=== PATIENT | female | born 1980 | race African-American/Black ===

== ENCOUNTER 2021-11-07 18:15 | Emergency (ER) | payer MEDICAID, SELFPAY ==
[2021-11-07 18:40] VITALS: BP 133/80; PULSE 117; RESP 20; TEMP 36.6; O2SAT 97; BMI 58.1
--- NOTE | 2021-11-07 19:37 | ED.GENADULT ---
HPI - General Adult General Date Seen: 11/07/21 Chief complaint: Unspecified Complaint, Adult Stated complaint: POSSIBLE SINUS INF - SICK SINCE TUESDAY Time Seen by Provider: 11/07/21 19:04 Source: patient History of Present Illness HPI narrative: Patient is a 41-year-old woman who presents with upper respiratory symptoms including sore throat, congestion, headache, body aches, cough. She has not had a fever that she knows of. She was seen at the [place] [facility] I believe on evening, at that time she had a negative COVID, negative strep, negative chest x-ray and was diagnosed with pharyngitis and viral URI with cough. She was recommended to use NSAIDs and follow up with her primary care doctor. Presents today saying that she still has these symptoms and feels that she has a sinus infection because she is not better. She says that previously when she has had headache and congestion she has been treated with antibiotics and it has helped her to feel better within a few days. She continues to deny fever. She has not had vomiting or diarrhea. She does say that she has not had an appetite and finds it hard to drink water because water makes her feel nauseated. She has been taking ibuprofen and Tylenol, she says that those help her symptoms but then as they wear off her symptoms come back. Past medical history is reviewed on her [facility] Record, including depression, anxiety, obesity, sleep apnea, binge eating, anemia and constipation. Related Data Home Medications Medication Instructions Recorded Confirmed fluoxetine 40 mg capsule mg 11/07/21 Allergies Allergy/AdvReac Type Severity Reaction Status Date / Time No Known Drug Allergies Allergy Verified 11/07/21 18:46 Review of Systems Status of ROS: Reports: 10 or more systems reviewed and unremarkable except as noted in History and below Exam Narrative: Exam Narrative: Vital signs as noted above. In general, an alert, well-appearing patient. She is overweight. Head: Normocephalic, atraumatic. Eyes: Pupils are equal reactive. Extraocular movements are full. Conjunctivae are normal. ENT: Mucous membranes are moist. Throat is normal. Bilateral TMs are normal. Neck: Supple without lymphadenopathy. No meningeal signs. Heart: Mildly tachycardic, regular. No murmur or rub. Lungs: Clear bilaterally. No increased work of breathing, crackles or wheezes. Abdomen: Soft and nontender. No organomegaly. Extremities: Well perfused. No edema. No calf tenderness. Pulses intact. Neurologic: Patient is alert and oriented to person and place. Speech is fluent. Face is symmetric. Moves all extremities equally. Affect: Normal. Skin: Warm and dry. Well perfused. Const: Vital Signs, click to edit/add: Vital Signs - 24 hr 11/07/21 18:40 Temperature 97.9 F Pulse Rate [Pulse Oximeter] 117 H Respiratory Rate 20 Blood Pressure [Ri ght Upper Arm] 133/80 Pulse Oximetry 97 Oxygen Delivery Me thod Room Air Documenting provider has reviewed patient's vital signs: yes Course Course Hospital Course: I had a lengthy conversation with her about the difference between viral and bacterial infections. I reviewed with her that with only 4 days of symptoms, I do not think this represents sinus infection. We also discussed that if she were to start an antibiotic now, she would likely feel better within a few days but that is simply because that is the natural course of a viral infection. I suggested that she continue with her current medications. She feels strongly that she needs something else to help with her sinus congestion. Therefore I am going to give her a few days of prednisone to see if that will help at all with her sinus congestion. I have also suggested that she can use ice packs for headache if needed. Follow up with primary care if not improving over the next few days. She was mildly tachycardic at her visit to the ER couple of days ago, remains mildly tachycardic here, low 100's at the time of my exam. She is otherwise afebrile, O2 sats are normal, exam is otherwise benign. This may represent some mild dehydration, may be in part secondary to elevated BMI. She otherwise looks completely nontoxic. Vital Signs Vital signs: Initial Vital Signs Temperature 97.9 F 11/07/21 18:40 Temperature Source Temporal Artery Scan 11/07/21 18:40 Pulse Rate 117 H 11/07/21 18:40 Respiratory Rate 20 11/07/21 18:40 Blood Pressure 133/80 11/07/21 18:40 Blood Pressure Mean 97 11/07/21 18:40 Blood Pressure Position Supine 11/07/21 18:40 Pulse Oximetry 97 11/07/21 18:40 Oxygen Delivery Method 11/07/21 18:40 Vital Signs Temperature 97.9 F 11/07/21 18:40 Pulse Rate 117 H 11/07/21 18:40 Respiratory Rate 20 11/07/21 18:40 Blood Pressure 133/80 11/07/21 18:40 Pulse Oximetry 97 11/07/21 18:40 Oxygen Delivery Method 11/07/21 18:40 Temperature 97.9 F 11/07/21 18:40 Pulse Rate 117 H 11/07/21 18:40 Respiratory Rate 20 11/07/21 18:40 Blood Pressure 133/80 11/07/21 18:40 Pulse Oximetry 97 11/07/21 18:40 Oxygen Delivery Method 11/07/21 18:40 Discharge Plan Discharge Clinical Impression: Viral URI Patient Disposition: Home, Self-Care Condition: Stable Instructions: Upper Respiratory Infection (ED) Additional Instructions: Continue with ibuprofen, Tylenol, Sudafed as you have been. You can try ice as well for headache. Prednisone as prescribed. Primary care follow-up if not improving over the next week, sooner for worsening. Prescriptions: No Action fluoxetine 40 mg capsule Stand Alone Forms: [employer] Info Instructions
--- OUTSIDE RECORDS SUMMARY | 2021-11-07 19:37 | XMS_ITS | Clinical Summary ---
:1980 Author Organization [facility] Address [address] [place] [address] Care Team Providers Name Role Phone Rose Morrow APRN, CNP Primary Care Provider [phone] Source Comments You are receiving this document as you are listed as the primary care provider,follow-up provider, or the patient has been referred to you for consultation.This is in compliance with the Medicare and Medicaid EHR Incentive Program,which states Providers who transition their patient to another setting of careor provider of care or refers their patient to another provider of care shouldprovide summarycare record for each transition of care or referral. [facility] [place] Allergies No known active allergies Medications Medication Sig Dispensed Refills Start Date End Date Status Ibuprofen 200 MG Take 600 mg by 0 Active capsule mouth every 6 hours as needed for Pain. tiZANidine (ZANAFLEX) Take 0.5-1 30 Tablet 1 05/13/2020 Active 2 MG tablet Tablets by mouth two times daily as needed (Muscle pain and tension). ondansetron Take 1 Tablet by 20 Tablet 0 06/06/2020 Active (ZOFRAN-ODT) 4 MG mouth as needed disintegrating tablet for Nausea. buPROPion (WELLBUTRIN Take 3 Tablets by 270 Tablet 1 1 Active XL) 150 MG 24 hour mouth daily. release tablet triamcinolone Apply topically 15 g 1 10/30/2020 Active acetonide (KENALOG) two times a day. 0.1 % Indications: creamIndications: Atopic Dermatitis Atopic Dermatitis Vitamin D, TAKE 1 CAPSULE BY 12 Capsule 3 11/18/2020 Active Ergocalciferol, 1.25 MOUTH 1 TIME A MG (42391 UT) CAPS WEEK topiramate (TOPAMAX) Take 1 Tablet by 60 Tablet 2 11/19/2020 Active 25 MG mouth two times a tabletIndications: day for 30 days. Morbid obesity with BMI of 50.0-59.9, adult ([facility]) traZODone (DESYREL) Take 0.5-2 60 Tablet 2 01/14/2021 01/15/20 Active 100 MG tablet Tablets by mouth daily at bedtime. desvenlafaxine 25 mg daily x 7 60 Tablet 3 01/14/2021 Active (PRISTIQ) 25 MG 24 days then 50 hour release tablet daily with food- discontinue Cymbalta Active Problems Problem Noted Date OCD (obsessive compulsive disorder) 01/14/2021 Mixed hyperlipidemia 11/19/2020 Hyperinsulinemia 11/19/2020 Prediabetes 11/19/2020 Chronic low back pain 05/09/2020 Urinary frequency 09/13/2019 Overview: Added automatically from request for geoffrey dontae [id number] Urinary urgency 09/13/2019 Overview: Added automatically from request for geoffrey dontae [id number] Mixed stress and urge urinary incontinence 09/13/2019 Overview: Added automatically from request for geoffrey dontae [id number] Morbid obesity with BMI of 50.0-59.9, adult 03/14/2019 Binge eating disorder 07/28/2017 MIKEY (generalized anxiety disorder) 07/08/2016 CAMRYN (obstructive sleep apnea) 01/13/2016 Last Assessment & Plan: Formatting of th is note might be different from the original. PSG 2016 [facility] AHI 6 RDI 7 Major depression, recurrent 02/19/2010 Vitamin D deficiency Overactive bladder Resolved Problems Problem Noted Date Resolved Date Depression (emotion) 01/08/2020 Immunizations Name Administration Dates Next Due Flu Vac (3+ yrs) 11/03/2011, 12/15/2006 Flu Vac Preserv Free (3+yrs) 03/01/2012 HepB Adult (Engerix-B, 20+ yrs, 3 01/12/2005, 08/14/2004, dose series) IPV (Polio) 10/03/2012 Influenza IIV4 (Quadrivalent) 0.5mL 10/27/2019, 03/21/2019, 03/14/2019 (78940) (Deferred: Patient Refused), 12/26/2017, 11/28/2013 Influenza, Unspecified Formulation 05/02/2013 MMR 08/14/2004, 07/10/2004 Moderna (Spikevax) COVID-19, 12+ Yrs 06/12/2020, 05/14/2020 TB Skin Test - Inpt (PPD) 08/18/2004 Td 02/16/2005, 08/14/2004, 07/10/2004 Tdap 06/30/2013, 11/03/2011 Typhoid (Typhim Vi, IM) 10/03/2012 Varicella 08/14/2004, 07/10/2004 YF (Yellow Fever) 10/03/2012 Family History Medical History Relation Name Comments Hypertension Father Blindness Negative Family History Cataract Negative Family History Glaucoma Negative Family History Retinal Detachment Negative Family History Relation Name Status Comments Father Alive Mother Alive Brother 1 Alive Brother 2 Alive Brother 3 Alive Brother 4 Alive Maternal Grandfather Maternal Grandmother Paternal Grandfather Paternal Grandmother Sister 1 Alive Sister 2 Alive Social History Tobacco Use Types Packs/Day Years Used Date Smoking Tobacco: Never Smokeless Tobacco: Never Alcohol Use Standard Drinks/Week Comments Never 0 (1 standard drink = 0.6 oz pure alcoho l) Alcohol Habits Answer Date Recorded How often do you have a drink containing alcohol? Never 02/07/2020 How many drinks containing alcohol do you have on a typical Not asked day when you are drinking? How often do you have six or more drinks on one occasion? No t asked Comment: Not asked Sex Assigned at Date Recorded Not on file Last Filed Vital Signs Vital Sign Reading Time Taken Comments Blood Pressure 119/90 08/19/2020 1:00 PM CDT Pulse 115 08/19/2020 1:00 PM CDT Temperature 36.7 ??C (98 ??F) 01/08/2020 9:46 AM JEWEL DIAMETER GAUGER Respiratory Rate 20 10/29/2019 5:51 PM CDT Oxygen Saturation 98% 10/29/2019 5:51 PM CDT Inhaled Oxygen Concentration - - Weight 167.4 kg (369 lb) 11/19/2020 11:08 AM CDT pt rep orted Height 170.2 cm (5' 7) 11/19/2020 11:08 AM CDT pt repo rted Body Mass Index 57.79 11/19/2020 11:08 AM CDT Plan of Treatment Health Maintenance Due Date Last Done Comments Hep C Screening (Preventive 1980 Services) COVID-19 Vaccine (3 - 08/07/2020 06/12/2020, 05/14/2020 Booster for Moderna series) Adult Preventive Visit 03/14/2021 03/14/2019, 05/22/2018 Pap 05/21/2021 05/21/2018 Prediabetes: HGBA1C 08/19/2021 08/19/2020, 03/14/2019, 05/22/2018 Influenza (#1) 2021 10/27/2019, 03/21/2019, 12/26/2017, Additional history exists DTaP/Tdap/Td (3 - Tdap) 07/01/2023 06/30/2013, 11/03/2011, 02/16/2005, Additional history exists Zoster/Shingles (1 of 2) 2032 HepB Completed 01/12/2005, 08/14/2004, 07/10/2004 IPV (Polio) Aged Out 10/03/2012 No longer eligib le based on patient 's age to complete this topic HIV Screening (Preventive Completed 03/14/2019 Services) HPV Vaccine Aged Out No longer eligib le based on patient 's age to complete this topic HepA Aged Out No longer eligib le based on patient 's age to complete this topic Hib Aged Out No longer eligib le based on patient 's age to complete this topic MCV4 Aged Out No longer eligib le based on patient 's age to complete this topic Pneumococcal Aged Out No longer eligib le based on patient 's age to complete this topic Care Teams Wafer Fabrication Technician Relationship Specialty Start Date End Date Rose Morrow, INTER COM INSTALLER, BIOFUELS PRODUCTION MANAGER PCP - General Nurse Practitioner 10/30/20 [address] [place] MAR[place] Washburn [id number]
--- OUTSIDE RECORDS SUMMARY | 2021-11-07 19:37 | XMS_ITS | Encounter Summary ---
:1980 Author Organization [facility] Address [address] [place] [address] Care Team Providers Name Role Phone Rose Morrow APRN, CNP Primary Care Provider [phone] Encounter Details Date Type Department Care Team Description 04/13/2021 Partner ED HIM DEPARTMENT Provider, Javi gerard MD [facility] 04/13/2021 Interface provid er interface provider, [place] [id number] Social History Tobacco Use Types Packs/Day Years [...] Assigned at Date Recorded Not on file documented as of this encounter Plan of Treatment Not on filedocumented as of this encounter Visit Diagnoses Not on filedocumented in this encounter Care Teams Ap Processor Relationship Specialty Start Date End Date Rose Morrow APRN, MOLD SETTER PCP - General Nurse Practitioner 10/30/20 [address] [place] [address] documented as of this encounter
--- OUTSIDE RECORDS SUMMARY | 2021-11-07 19:37 | XMS_ITS | Encounter Summary ---
:1980 Author Organization [facility] [place] Address [address] [address] Care Team Providers Name Role Phone Rose Morrow APRN, RETAIL EVENT COORDINATOR Primary Care Provider [phone] Reason for Visit Reason Comments Careplan: General Encounter Details Date Type Department Care Team Description 02/26/2021 Telephone [place] [facility] Oralia Knapp, Careplan: General Weight Center RN [address] [facility] [address] [place], [place] [address] Social History Tobacco Use Types Packs/Day Years [...] on file documented as of this encounter Nursing Notes Castro Knapp RN - 02/26/2021 2:36 PM CST Bariatric Patient Tracking SmartForm updated to reflect current status with B[facility]ric Surgery and [facility]. Attempts to contact have not been returned. Reminded to f/u w/ Kin MIQUEL Mills, get LOS, CPAP DL, marilee vit d and get PT eval. (Last attempt to contact patient) BOILER documented in this encounter Plan of Treatment Not on filedocumented as of this encounter Visit Diagnoses Not on filedocumented in this encounter Care Teams Health Care Manager Relationship Specialty Start Date End Date Rose Morrow, GEOTHERMAL INSTALLER, RETAIL EVENT COORDINATOR PCP - General Nurse Practitioner 10/30/20 [address] [place] [address] documented as of this encounter
--- OUTSIDE RECORDS SUMMARY | 2021-11-07 19:38 | XMS_ITS | Encounter Summary ---
:1980 Author Organization [email or web address] Address [address] [address] Care Team Providers Name Role Phone Rose Morrow APRN, CNP Primary Care Provider [phone] Encounter Details Date Type Department Care Team Description 11/06/2020 Notes/[place] [address] [address] [facility] [address] [place] [address] [place] [phone] Social History Tobacco Use Types Packs/Day Years [...] on filedocumented in this encounter Care Teams Boat Hoist Operator Helper Relationship Specialty Start Date End Date Rose Morrow APRN, CNP PCP - General Nurse Practitioner 10/30/20 [address] [place] Washburn 187367 documented as of this encounter
--- OUTSIDE RECORDS SUMMARY | 2021-11-07 19:38 | XMS_ITS | Encounter Summary ---
:1980 Author Organization [facility] Address [address] [place] [address] Care Team Providers Name Role Phone Rose Morrow APRN, CNP Primary Care Provider [phone] Reason for Visit Reason Onset Date Comments Follow-up Depression ERRONEOUS ENTRY 2020 Encounter Details Date Type Department Care Team Description 2020 Telemedicine [facility] Rose Morrow, ERR ONEOUS ENTRY Medicine [place] (Primary Dx) [address] [address] [place] [address] [place], [place] [phone] (Wo rk) Social History Tobacco Use Types Packs/Day Years [...] on file documented as of this encounter Progress Notes Rose Morrow, [place] - 2020 11:20 AM CDT Patient scheduled this visit in error. Was supposed to be for three weeks from now. Will see her forfollow up 11/27. This encounter is an erroneous entry. Please disregard. documented in this encounter Plan of Treatment Not on filedocumented as of this encounter Visit Diagnoses Diagnosis ERRONEOUS ENTRY - Primary documented in this encounter Care Teams Microfilming Document Preparer Relationship Specialty Start Date End Date Rose Morrow APRN, CNP PCP - General Nurse Practitioner 10/30/20 [address] [place] 435167 documented as of this encounter
--- OUTSIDE RECORDS SUMMARY | 2021-11-07 19:38 | XMS_ITS | Encounter Summary ---
:[address] [facility] Address [address] [place] [address] Care Team Providers Name Role Phone Sandy Viera MD Primary Care Provider Reason for Visit Reason Comments Careplan: General Encounter Details Date Type Department Care Team Description 09/26/2020 Telephone [place] [facility] Oralia Knapp, Careplan: General Weight Center RN [address] [facility] [address] [place], [place] [address] Social History Tobacco Use Types Packs/Day Years [...] as of this encounter Nursing Notes Castro Knapp, RN - 09/26/2020 3:00 PM CDT Bariatric Patient Tracking SmartForm updated to reflect current status with [facility]ric Surgery and [facility]. ?? Left a voicemail. F/u with Dr Harvey RD, and psych. Please help in coordinating care between your therapist and our psychologist. Keep your appointment with pulmonology 09/19. We need you to continue to work with them and get clearance to proceed with bariatric surgery. documented in this encounter Plan of Treatment Not on filedocumented as of this encounter Visit Diagnoses Not on filedocumented in this encounter Care Teams Health Promotion Coordinator Relationship Specialty Start Date End Date Sandy Viera MD PCP - General Family Practice 07/20/19 10/29/20 [address] [place] [address] documented as of this encounter
--- OUTSIDE RECORDS SUMMARY | 2021-11-07 19:38 | XMS_ITS | Encounter Summary ---
:1980 Author Organization [facility] Address [address] [place] [address] Care Team Providers Name Role Phone Rose Morrow APRN, SOLAR ENERGY ENGINEER Primary Care Provider [phone] Reason for Visit Reason Comments EYE PAIN Encounter Details Date Type Department Care Team Description 10/29/2020 Telephone [facility] [address] Self-Referral, Patient , EYE PAIN Ophthalmology [address] [place] [address] [place], [place] [address] Social History Tobacco Use Types Packs/Day Years [...] documented as of this encounter Nursing Notes Nikko Dominique COT - 10/30/2020 8:04 AM CDT LM to discuss the ongoing symptoms regarding the OS Kelsie Salmeron - 10/29/2020 4:22 PM CDT LE, patient stated that her eye has been painful. Hurts to touch and is sensitive. Patient was told that they may not receive a call back today, but their message will be returned then. documented in this encounter Plan of Treatment Not on filedocumented as of this encounter Visit Diagnoses Not on filedocumented in this encounter Care Teams Nonfarm Animal Caretaker Relationship Specialty Start Date End Date Rose Morrow, CONRAD, SOLAR ENERGY ENGINEER PCP - General Nurse Practitioner 10/30/20 [address] [place] [address] documented as of this encounter
--- OUTSIDE RECORDS SUMMARY | 2021-11-07 19:38 | XMS_ITS | Encounter Summary ---
:1980 Author Organization [employer] Address [address] [place] [address] Care Team Providers Name Role Phone Sandy Viera MD Primary Care Provider Reason for Visit Reason Comments Sleep problems Hard time sleeping DEPRESSION Lack of interest in doing th ings Encounter Details Date Type Department Care Team Description 08/19/2020 Office Visit [facility] Rose Morrow, Sev ere episode of recurrent major depressive disorder, without psychotic features (HRC) (Primary Dx); Medicine YEAST WASHER, CERTIFIED NURSE OPERATING ROOM Chronic low back pain, unspecified back pain laterality, unspecified whether sciatica present; [address] [address] [address] Morbid obesity with BMI of 50.0-59.9, ad ult (HRC); [place] [address] [place], [place] Binge eating disorder [phone] (Wo rk) Social History Tobacco Use Types [...] on file documented as of this encounter Last Filed Vital Signs Vital Sign Reading Time Taken Comments Blood Pressure 119/90 08/19/2020 1:00 PM CDT Pulse 115 08/19/2020 1:00 PM CDT Temperature - - Respiratory Rate - - Oxygen Saturation - - Inhaled Oxygen Concentration - - Weight 159.4 kg (351 lb 6.4 oz) 08/19/2020 1:00 PM CDT Height - - Body Mass Index 55.87 06/24/2020 10:52 AM CDT documented in this encounter Patient Instructions Patient InstructionsRose Morrow APRN, CNP - 08/19/2020 12:[address] [facility]: [phone] Medicine Wellbutrin: Start 1 tab daily for 3 days, then 2 tabs daily for 3 days, then 3 tabs daily. Continue 3 tabs daily. Take in morning. Cymbalta (new antidepressant, which is also helpful for chronic pain) - Start 1 tab daily in 2 weeks - Ok to take with dinner to help with nausea Get pill divider Recheck with video visit in 4 weeks documented in this encounter Progress Notes Rose Morrow APRN, CNP - 08/19/2020 12:40 PM CDT Narinder Lucas [id number] 1980 SUBJECTIVE: NARINDER LUCAS is a 39 y.o. female who presents to the clinic for medication check. She was unfortunately about 20 minutes late for her appointment. Depression: Patient has severe depression. I started seeing her in January 2020 and started her on Wellbutrin, eventually titrating to 450mg daily. She had notices some improvement in energy and motivation. She was doing more around the house and getting out of bed to accomplish tasks. She was also started seeing a counselor, which she has been doing once weekly. She has also established with an [employer] worker. Given subtherapeutic response to Wellbutrin and chronic low back pain, I recommended trial of Cymbalta starting at 30mg. She did not tolerate this due to nausea. I advised that she try 20mg instead. That was in May. She states that she lost her prescription before she could give that dose atry. She ran out of her Wellbutrin about two weeks ago. Patient states that since then, her depression has been worse. She has not wanted to get out of bed and has not been taking care of herself or her home. She is not preparing food for herself and feels like her depression is contributing to her feeling slowed down mentally and forgetful. She lives in [place] and rarely comes up this far for appointments. I have mainly been seeing her with video visits. She went to the ED this morning because she had run out of her depression medications. Since she was not feeling suicidal, they discharged herhome. She continues to deny SI. Patient has sleep apnea. When she uses her CPAP consistently, she feels more energized during the day and less forgetful. She found out recently that her current machine ([employer]) was recalled. She returned it to the store, but was not given a new one. She states that she has a prescription, she justneeds a machine. She has an appt with our Sleep Clinic on 09/19 to establish care. Patient continues to have difficulty losing weight. She weighs 351 lbs now. She finds it painful/difficult to walk, so is not sure what else she can do to lose weight. She states that she barely eats, so does not think it's an issue with food intake. She would like to get some labs drawn. She has established care with our Bariatrics department, but until mental health is better managed, surgery will not be an option. PAST MEDICAL AND SURGICAL HISTORY REVIEWED IN [facility] FAMILY AND SOCIAL HISTORY REVIEWED IN [facility] MEDICATIONS: Outpatient Medications Prior to Visit Medication Sig ??? Ibuprofen 200 MG capsule Take 600 mg by mouth every 6 hours as needed for Pain. ??? ondansetron (ZOFRAN-ODT) 4 MG disintegrating tablet Take 1 Tablet by mouth as needed for Nausea. ??? tiZANidine (ZANAFLEX) 2 MG tablet Take 0.5-1 Tablets by mouth two times daily as needed (Muscle pain and tension). ??? [DISCONTINUED] buPROPion (WELLBUTRIN XL) 150 MG 24 hour release tablet Take 3 Tablets by mouth daily. ??? [DISCONTINUED] DULoxetine (CYMBALTA) 20 MG capsule Take 1 Capsule by mouth daily. ??? [DISCONTINUED] Vitamin D, Ergocalciferol, 1.25 MG (35708 UT) CAPS Take 1 Capsule by mouth once aweek. No facility-administered medications prior to visit. ALLERGIES: Patient has no known allergies. ROS as described above. Other pertinent positives include: as above OBJECTIVE BP (!) 119/90 (BP Location: Left Forearm, BP Cuff Size: Large) Pulse (!) 115 Wt (!) 351 lb 6.4 oz (159.4 kg) BMI 55.87 kg/m?? GENERAL: This is a well-developed, well-nourished female in no acute distress. Obese body habitus. LUNGS: Symmetrical expansion, CTA in all troy bilaterally. HEART: Regular rate and rhythm. No murmurs. PSYCH: Well-oriented. Appropriate mood and affect. Good insight into condition, pleasant affect. NEURO: Speech and gait are normal. ASSESSMENT/PLAN: Severe episode of recurrent major depressive disorder, without psychotic features (HRC) - buPROPion (WELLBUTRIN XL) 150 MG 24 hour release tablet; Take 3 Tablets by mouth daily. Titration schedule given for restarting meds. - DULoxetine (CYMBALTA) 20 MG capsule; Take 1 Capsule by mouth daily. Titration schedule given for restarting in 2 weeks. - Vitamin D, Ergocalciferol, 1.25 MG (51992 UT) CAPS; Take 1 Capsule by mouth once a week. - Resources given for [facility] for additional therapeutic pathway. - We discussed inpatient or partial hospitalization program today, but patient would prefer to stay at home - Recheck in 4 weeks, sooner if worsening Chronic low back pain, unspecified back pain laterality, unspecified whether sciatica present (HRC):As above, start Cymbalta. See last PM&R note. Morbid obesity with BMI of 50.0-59.9, adult (HRC)/Binge eating disorder: Need to focus on mental health treatment right now. She will continue to benefit from Feathered[employer] And Reducer Machine consults. CAMRYN: I will reach out to Sleep Clinic to inquire how we might be able to get patient a new CPAP sooner. Total time: 30-39 minutes spent reviewing labs/pertinent history, performing exam, preparing plan ofcare, and communicating that plan with patient. Related questions and concerns were addressed. Verbal and/or written education/instructions were provided. Rose Morrow APRN, CERTIFIED NURSE OPERATING ROOM [facility] NB: A voice recognition dictation system was used for this note. Please excuse any typographical errors. documented in this encounter Plan of Treatment Not on filedocumented as of this encounter Visit Diagnoses Diagnosis Severe episode of recurrent major depres sive disorder, without psychotic features (HRC) - Primary Chronic low back pain, unspecified back pain laterality, unspecified whether sciatica present Morbid obesity with BMI of 50.0-59.9, ad ult (HRC) Binge eating disorder documented in this encounter Care Teams Ore Digger Relationship Specialty Start Date End Date Sandy Viera MD PCP - General Family Practice 07/20/19 10/29/20 [address] [place] [address] documented as of this encounter
--- OUTSIDE RECORDS SUMMARY | 2021-11-07 19:38 | XMS_ITS | Encounter Summary ---
:1980 Author Organization [employer] Address [address] [address] Care Team Providers Name Role Phone Rose Morrow APRN, CNP Primary Care Provider [phone] Encounter Details Date Type Department Care Team Description 10/02/2020 Telephone [facility] [address] Peña, PAFabioC Pulmonary Medicine [address] [facility] [place] [address] [facility] [address] [place] [address] [place], [place] [address] (Wo rk) Social History Tobacco Use Types [...] documented as of this encounter Nursing Notes Tato Oates - 10/02/2020 9:53 AM CDT Bladimir pulido inregards to her appt on on 12/03/20 with fermin peña at [place] at 215pm The appt has been cx. Due to the provider Being out on leave and the appt has been rescheduled at our [facility] on 12/04/20 at 230pm with leela rao documented in this encounter Plan of Treatment Not on filedocumented as of this encounter Visit Diagnoses Not on filedocumented in this encounter Care Teams Programmer Relationship Specialty Start Date End Date Rose Morrow APRN, BUILDING INSPECTION ENGINEER PCP - General Nurse Practitioner 10/30/20 [address] [address] [place] [address] documented as of this encounter
--- OUTSIDE RECORDS SUMMARY | 2021-11-07 19:38 | XMS_ITS | Encounter Summary ---
:1980 Author Organization [facility] Address [address] [place] [address] Care Team Providers Name Role Phone Sandy Viera MD Primary Care Provider Encounter Details Date Type Department Care Team Description 09/23/2020 Orders Only Initial Department Provider, [place], [facility] THANIA FIORE MD [place], [place] [address] Interface provider [phone] [place] [address] Social History Tobacco Use Types Packs/Day Years [...] Not on filedocumented as of this encounter Procedures Procedure Name Priority Date/Time Associated Diagnosis Comme nts SLEEP STUDY 09/23/2020 Results for thi s procedure are in the resu lts section. documented in this encounter Results SLEEP STUDY (09/23/2020) Narrative This result has an attachment that is no t available. Interface Provider DUMMY/OTHER/AR documented in this encounter Visit Diagnoses Not on filedocumented in this encounter Care Teams Pattern Changer And Repairer Relationship Specialty Start Date End Date Sandy Viera MD PCP - General Family Practice 07/20/19 10/29/20 [address] [address] [place] [address] documented as of this encounter
--- OUTSIDE RECORDS SUMMARY | 2021-11-07 19:38 | XMS_ITS | Encounter Summary ---
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 She has several issues to discusstoday. Depression: Patient has severe depression. I started seeing her in January 2020 and started her on Wellbutrin, eventually titrating to 450mg daily. She had noticed some improvement in energy and motivation. She was doing more around the house and getting out of bed to accomplish tasks. She also started seeing a counselor, which she [...] prescription before she could give that dose a try. She ran out of her Wellbutrin in late July. When I saw her on 08/19, I recommended restarting her Wellbutrin and gave her a titration schedule. I also gave her a lower dose of Cymbalta 20mg. Patient states that when she got her medication home from the pharmacy, she was confused about what was writtenon the bottles and therefore did not start. She would like to discuss what dose she should be takingwith me today. At this point, her mood has not changed much since August. Continues to feel depressed and has little motivation to do anything. She continues to deny SI. Patient has sleep apnea. When she uses her CPAP consistently, she feels more energized during the day and less forgetful. She found out recently that her current machine ([employer]) was recalled. She has not been using it as she is scared to. She states that she has a prescription, she just needs a machine. She had an appt with our Sleep Clinic on 09/19 to establish care, but it was canceled a day before. She is now rescheduled for 12/04, but is concerned about waiting this long to get in. Chronic low back pain: Reports continued low back pain that affects her ability to do ADLs and exercise. She is doing weekly OT sessions for Lifestyle Renewal program. Objective: There were no vitals taken for this visit. General: WDWN female in NAD Mental Status exam: Dressed neatly in street clothes. She exhibits good eye contact. Thought processis linear and goal oriented. Thought content exhibits logical connections. No pressured speech. Whenquestioned about suicide, the patient expresses Denied symptoms. No evidence of delusions or hallucinations. Mood is depressed . Affect is normal and mood-congruent. Insight and judgement are good . PHQ-9 10/10/2020 08/19/2020 06/06/2020 PHQ-9 Score Total 16 21 14 Q1: Loss of Int/Pleas 3 3 3 Q2: Depressed mood 1 3 3 Q3: Sleep problems 3 3 3 Q4: Tired/Low Energy 3 3 3 Q5: Appetite change 3 3 1 Q6: Feelings of failure 3 3 1 Q7: Concentration Prob 0 3 0 Q8: Slow or Restless 0 0 0 Q9: Thought Self Harm 0 0 0 Date PHQ9 was completed - - - MIKEY-7 08/19/2020 06/06/2020 07/21/2019 Feeling nervous 3 - Nearly every day 0 - Not at all 0 Can't stop worrying 3 - Nearly every day 1 - Several days 0 Worrying too much 3 - Nearly every day 0 - Not at all 0 Trouble relaxing - 0 - Not at all 0 Restlessness - 0 - Not at all 0 Easily annoyed - 0 - Not at all 0 Feeling afraid 2 - More than half the days 0 - Not at all 1 How difficult? Somewhat difficult Somewhat difficult - Total score - 1 1 Assessment/Plan: Severe episode of recurrent major depressive disorder, without psychotic features (HRC)/MIKEY (generalized anxiety disorder) (HRC) - I clarified dosing of her Wellbutrin and Cymbalta prescriptions and appropriate titration schedule. - Continue counseling - Recheck in one month, sooner if worsening CAMRYN (obstructive sleep apnea): Discussed recommendation from Pulmonology department that patients continue to use current CPAP until they are able to be assessed and obtain new machine. Patient states that she is uncomfortable with this and will likely avoid use. Chronic low back pain, unspecified back pain laterality, unspecified whether sciatica present (HRC) - Continue Lifestyle Renewal Program - Discussed importance of Cymbalta trial - Recheck in one month Clinician located at clinic. Patient located at home Billing based on: [place] Morrow APRN, CNP documented in this encounter Plan of Treatment Not on filedocumented as of this encounter Visit Diagnoses Diagnosis Severe episode of recurrent major depres sive disorder, without psychotic features (HRC) - Primary MIKEY (generalized anxiety disorder) (HRC) Generalized anxiety disorder CAMRYN (obstructive sleep apnea) Obstructive sleep apnea (adult) (pediatr ic) Chronic low back pain, unspecified back pain laterality, unspecified whether sciatica present documented in this encounter Care Teams Electrical Logging Engineer Relationship Specialty Start Date End Date Sandy Viera MD PCP - General Family Practice 07/20/19 10/29/20 [address] [address] [place] [address] documented as of this encounter
--- OUTSIDE RECORDS SUMMARY | 2021-11-07 19:38 | XMS_ITS | Encounter Summary ---
:1980 Author Organization [facility] Address [address], [place] [address] Care Team Providers Name Role Phone Rose Morrow APRN, HISTORIC SITES SUPERVISOR Primary Care Provider [phone] Reason for Referral Procedure/Equipment (Routine) - Incomplete Specialty Diagnoses / Procedures Referred By Contact Refer red To Contact Diagnoses OAB (overactive bladder) Stephanie Patel MD Procedures Case Request OR - Urology Surgery: Botox injection into the bladder [address] [place], [place] [address] Referral ID Status Reason Start Date Expiration Date Visits V isits Requested Authorized [id number] Incomplete 12/04/2020 03/05/2022 1 1 Encounter Details Date Type Department Care Team Description 12/04/2020 Telemedicine Stephanie Bedolla, OAB (ove ractive [place] [address] bladder) (Primary Dx) Urology [address] [facility] [address] [place] [address] [phone] (Wo rk) Social History Tobacco Use Types [...] documented as of this encounter Progress Notes Stephanie Patel MD - 12/04/2020 10:30 AM CDT Addendum: UA/SANJEEV one week prior to surgery -- orders entered. Stephanie Patel MD - 12/04/2020 12:00 AM CDT NAME: NARINDER LUCAS CSN: [id number] CLINIC NOTE DATE OF SERVICE: 12/04/2020 : 1980 Narinder is a very pleasant 40-year-old woman with a history of severe overactive bladder and nocturnalenuresis. The patient underwent repeat Botox injection to the bladder. This time, we did it in the clinic, I injected 150 units. The patient notes that she has had some improvement. She is having less nocturnal enuresis, but she still has had a couple of times where she has woken up wet. They were both after she had fallen asleep on the couch instead of in bed. The last dose that we gave her was a little over a year ago. The patient notes that it was terribly painful for her and she does not want to do it in the clinic.Again, she would like to go back to the operating room where she can have anesthesia prior to the procedure. I think that is reasonable. She was moving quite a bit and I think it would probably be a better result as well. We used 150 units this last time. She notes that sometimes it takes her a while to urinate. Therefore, I think that is probably a good dose. I think if we gave her much more, she may have difficulties with retention. ASSESSMENT: Severe overactive bladder and nocturnal enuresis with some improvement with Botox. PLAN: Repeat Botox in the operating room, we will plan for about 6 months. The patient notes that isabout the time that it started to wear off after her last dose. Orders were placed. Patient will call my brick burner head when she would like to schedule the surgery. MD PAM WHELAN/ELAINE /[id number] documented in this encounter Plan of Treatment Scheduled Orders Name Type Priority Associated Diagnoses Order S chedule 2018 Novel Coronavirus Microbiology Routine OAB (overactive Ex pected: 12/04/2020, (COVID-19) bladder) Expires: 2021 Urinalysis Routine, Lab Routine OAB (overactive 6 Occ urrences Micro/Culture if Pos: bladder) starti ng 12/04/2020 Clean Catch until 2 documented as of this encounter Visit Diagnoses Diagnosis OAB (overactive bladder) - Primary Hypertonicity of bladder documented in this encounter Care Teams Community Administrator Relationship Specialty Start Date End Date Rose Morrow, HEEL COVERER, HISTORIC SITES SUPERVISOR PCP - General Nurse Practitioner 10/30/20 [address] [address] [place] [address] documented as of this encounter
--- OUTSIDE RECORDS SUMMARY | 2021-11-07 19:38 | XMS_ITS | Encounter Summary ---
:1980 Author Organization [employer] Address [address] [place] [address] Care Team Providers Name Role Phone Sandy Viera MD Primary Care Provider Reason for Visit Reason Comments Medication Questions Encounter Details Date Type Department Care Team Description 10/02/2020 Telephone [facility] Rose Morrow, [facility] Medicine [place] [address] [place] [address] [place] [address] [phone] (Wo rk) Social History Tobacco Use Types [...] documented as of this encounter Nursing Notes Rose Morrow APRN, CNP - 10/09/2020 4:32 PM CDT Please call patient. Let her know that I can work her in tomorrow at 10am for a video visit. Jeannette Iniguez LPN - 10/03/2020 3:58 PM CDT Clinician Action: Appointment Work In Reason medication concerns/questions Clinician Next Step: Route to [facility] Nurse pool to follow up Specific Request(s): 1. Spoke to patient and relayed information from covering provider below. Patient was still confusedand afraid to take the medication. She requested an appointment to talk to prescribing provider. Selene Coon MD - 10/03/2020 7:54 AM CDT Notes reviewed. No documentation on recommendation for titration in last OV. Cymbalta is one/day. Iftaking wellbutrin XR 150 mg, can increase to 300 mg after 4 days. Increase to 450 mg after 2 weeks if 300 mg dose not effective. Selene Coon MD 7:57 AM 10/03/2020 Kayleen Vazquez, RN - 10/02/2020 4:51 PM CDT Clinician Action: Input needed regarding Medication Clinician Next Step: Route to [facility] Nurse pool to follow up and Patient IS expecting a call back fromcare team Specific Request(s): 1. Wellbutrin and Cymbalta Pt is wondering directions on both medications. Pt states she started to take the wellbutrin but forgot on what K.[facility] directions were. Pt states she was suppose to take 1 pill for a few days and then increase up to 3 pills per day. documented in this encounter Plan of Treatment Not on filedocumented as of this encounter Visit Diagnoses Not on filedocumented in this encounter Care Teams Quarry Supervisor Relationship Specialty Start Date End Date Sandy Viera MD PCP - General Family Practice 07/20/19 10/29/20 [address] [address] [place] [address] documented as of this encounter
--- OUTSIDE RECORDS SUMMARY | 2021-11-07 19:38 | XMS_ITS | Encounter Summary ---
:1980 Author Organization [facility] Address [address] [place] [address] Care Team Providers Name Role Phone Rose Morrow APRN, CNP Primary Care Provider [phone] Encounter Details Date Type Department Care Team Description 12/15/2020 Orders Only Initial Department Provider, [place], [facility] THANIA FIORE MD [place], [place] [address] Interface provider [phone] [place] [address] Social History Tobacco Use Types Packs/Day Years [...] Date/Time Associated Diagnosis Comme nts SLEEP STUDY 12/15/2020 Results for thi s procedure are in the resu lts section. documented in this encounter Results SLEEP STUDY (12/15/2020) Narrative This result has an attachment that is no t available. Interface Provider MD SWEET/OTHER/AR documented in this encounter Visit Diagnoses Not on filedocumented in this encounter Care Teams Nipple Maker Relationship Specialty Start Date End Date Rose Morrow APRN, CASTING ROOM HELPER PCP - General Nurse Practitioner 10/30/20 [address] [place] [address] documented as of this encounter
--- OUTSIDE RECORDS SUMMARY | 2021-11-07 19:38 | XMS_ITS | Encounter Summary ---
:1980 Author Organization [facility] Address [address] [address] Care Team Providers Name Role Phone Rose Morrow APRN, NEW Primary Care Provider [phone] Encounter Details Date Type Department Care Team Description 10/06/2020 [facility] Jessica Camilo, OTR/L [facility] [address] [facility] [address] [place], [place] [address] [place] [address] [phone] Social History Tobacco Use Types Packs/Day Years [...] documented as of this encounter Progress Notes Jessica Camilo OTR/L - 10/06/2020 11:59 PM CDT [facility] Discharge Summary Narinder Lucas has not attended therapy since last documented visit. There are no further visits scheduled at this time and Narinder is currently considered discharged from therapy. Unable to assess current level of function and goals due to unplanned discharge. OT - Discharge Total Visits: 3 Reason for discharge: Patient has not been consistent with attendance and/or failed to schedule appointments as planned. Primary Therapist: Multiple therapist Please see previous visit documentation of status at last treatment. FAVIOLA Moran UNT MANAGEMENT ASSISTANT documented in this encounter Plan of Treatment Not on filedocumented as of this encounter Visit Diagnoses Not on filedocumented in this encounter Care Teams Supervisor Pairing And Inspecting Relationship Specialty Start Date End Date Rose Morrow, DECORATOR CONSULTANT, ELEMENTARY SCHOOL TEACHER PCP - General Nurse Practitioner 10/30/[address] [place] [id number] documented as of this encounter
--- OUTSIDE RECORDS SUMMARY | 2021-11-07 19:38 | XMS_ITS | Encounter Summary ---
:1980 Author Organization [email or web address] Address [address] [place] [address] Care Team Providers Name Role Phone Rose Morrow APRN, NEW Primary Care Provider [phone] Encounter Details Date Type Department Care Team Description 11/04/2020 Lab Visit [facility] OAB (overactive bladder) [address] [place] [address] Social History Tobacco Use Types Packs/Day Years [...] encounter Progress Notes Stephanie Patel MD - 11/04/2020 5:50 PM CDT Start bactrim DS BID for 10 days, start 7 days prior to botox. Alize Rawls RN - 11/04/2020 5:50 PM CDT Pt notified. Prescription for Bactrim DS bid for 10 days was sent to [facility] in [place]. documented in this encounter Plan of Treatment Not on filedocumented as of this encounter Procedures Procedure Name Priority Date/Time Associated Diagnosis Comme nts URINE CULTURE Routine 11/04/2020 5:20 PM OAB (overactive Resul ts for this CDT bladder) procedure are i n the results section . UA MICRO IF Routine 11/04/2020 5:20 PM OAB (overactive Result s for this CDT bladder) procedure are i n the results section . documented in this encounter Results (ABNORMAL) Urine Culture (11/04/2020 5:20 PM CDT) [facility] Method Time Signature Urine Culture Growth (A) 11/06/2020 [facility] 1:13 AM CDT HOSPITAL Urine Culture >100,000 CFU/mL 11/06/2020 [facility] Multiple 1:13 AM CDT HOSPITAL Bacterial Morphotypes Specimen Anatomical Collection Method Collection Time Receive d Time (Source) Location / / Volume Laterality Urine URINE SPECIMEN Non-blood 11/04/2020 5:20 PM 021 5:20 COLLECTION, CLEAN Collection / CDT PM CDT CATCH / Unknown Unknown Stephanie Patel MD LAB_1 Performing Organization Address [facility] Phon e Number [address] [address] UA (Micro if positive) - Lab collect (11/04/2020 5:20 PM CDT) [facility] Method Time Signature Urine Color Yellow Straw-Yellow 11/04/2020 [facility] 5:32 PM CDT LAB Urine Clarity Clear Clear 11/04/2020 [facility] 5:32 PM CDT LAB Specific 1.025 1.005 - 11/04/2020 [facility] [place], 1.030 5:32 PM CDT LAB Urine PH Urine 6.5 5.0 - 8.0 11/04/2020 [facility] 5:32 PM CDT LAB Protein, Negative Neg/Trace 11/04/2020 [facility] Urine Qual 5:32 PM CDT LAB (mg/dL) Glucose Urine Negative Negative 11/04/2020 [facility] Qual (mg/dL) 5:32 PM CDT LAB Ketones, Negative Negative 11/04/2020 [facility] Urine (mg/dL) 5:32 PM CDT LAB Urobilinogen, 0.2 <2.0 11/04/2020 [facility] Urine (EU/dL) 5:32 PM CDT LAB Bilirubin Negative Negative 11/04/2020 [facility] Urine 5:32 PM CDT LAB Blood, Urine Negative Neg/Trace 11/04/2020 [facility] 5:32 PM CDT LAB Nitrite Urine Negative Negative 11/04/2020 [facility] 5:32 PM CDT LAB Leukocyte Negative Negative 11/04/2020 [facility] Est. 5:32 PM CDT LAB Urine Source Clean Catch 11/04/2020 [facility] 5:32 PM CDT LAB Specimen Anatomical Collection Method Collection Time Receive d Time (Source) Location / / Volume Laterality Urine URINE SPECIMEN Non-blood 11/04/2020 5:20 PM 021 5:20 COLLECTION, CLEAN Collection / CDT PM CDT CATCH / Unknown Unknown Stephanie Patel MD LAB_1 Performing Organization Address City/State/ZIP Code Phon e Number [facility] [address] [facility] [place] [address] [phone] documented in this encounter Visit Diagnoses Diagnosis OAB (overactive bladder) Hypertonicity of bladder documented in this encounter Care Teams Shrub Planter Relationship Specialty Start Date End Date Rose Morrow, DATA SOFTWARE ENGINEER, CATTLE INSPECTOR PCP - General Nurse Practitioner 10/30/20 [address] [place] [address] documented as of this encounter
--- OUTSIDE RECORDS SUMMARY | 2021-11-07 19:38 | XMS_ITS | Encounter Summary ---
:1980 Author Organization [facility] Address [address] [place] [address] Care Team Providers Name Role Phone Rose Morrow APRN, CNP Primary Care Provider [phone] Reason for Visit Reason Comments Medication Questions Encounter Details Date Type Department Care Team Description 01/21/2021 Telephone [facility] Rose Morrow, [facility] ication Questions Medicine [place] [address] [place] [address] [place], [place] [address] (Wo rk) Social History Tobacco Use Types [...] documented as of this encounter Nursing Notes Yissel Bustamante LPN - 01/28/2021 9:22 AM CST I called and left pt a detailed VM as indicated Ok to do so below. I advised pt that the Thyroid level will not be repeated until August so that it is a yearly screening. I advised pt that she needs to start taking her High Dose Vitamin D is she hasn't already. Once she is taking it I instructed her to schedule an appointment with Rose GARCIA for 3 months laterand to complete her lab recheck 2-3 days prior to office visit with Rose GARCIA. I again ins tructed pt to call [phone] to schedule office visit and 3 to schedule lab appointment. Pt was told to call [phone] if there are any questions, concerns, or need for clarification. LOPE FOLDING MACHINE ADJUSTER Jeannette Iniguez LPN - 01/22/2021 1:29 PM CST Attempted call - no answer mailbox full LOPE FOLDING MACHINE ADJUSTER Rose Morrow APRN, CNP - 01/22/2021 12:41 PM CST Call pt. Her thyroid test was checked in August and has been stable at the same level for the past three years. I do not think it is worth checking at this time. The Vitamin D prescription that I sent in November (ergocalciferol) is a high dose preparation. She takes one tab once weekly for three months. This will correct her Vitamin D deficiency and help her energy. She should start taking it. If she is not already on my schedule, please assist in scheduling. LOPE FOLDING MACHINE ADJUSTER Shweta Reyna RN - 01/21/2021 5:06 PM CST Clinician Action: New Order Lab Clinician Next Step: Route to [facility]. Pt requests a call in the morning. Specific Request(s): 1. TSH level Spoke with pt, reviewed message from letter from Jaylene Mills on 11/26: Your vitamin D level is still low. You have a refill available on your high dose Vitamin D supplement. Please fill this at your pharmacy and take weekly as directed for 12 weeks, then recheck your vitamin D level again in 3 months Pt has not been taking this as she did not receive a call about it and does not recall receiving a letter. This was a medication previously prescribed by PCP, but pt thought the most recent refill was a different medication and so did not take it, not knowing what it was. Pt reports feeling very tired, depressed, and is overeating; has been seen by PCP as well as bariatric clinic for these concerns. Pt is worried her symptoms may be related to her thyroid. Requesting to have TSH drawn to rule this out. Pt expresses frustration that bariatric clinic will not do surgery because she is depressed; but pt states everything is connected and she cannot seem to get out of depression and eating habits with being tired all the time. Despite knowing her Vitamin D levels are low and she should be taking supplement, pt is still requesting for TSH. Pended order for review. LOPE FOLDING MACHINE ADJUSTER Janelle Escobar - 01/21/2021 4:39 PM CST Medications - Med Change / Question Is this a medication change or a general question? Med Question What is your question or concern? Pt asking why she get a new prescription for Vitamin D2, please call her to explain - Vitamin D2 82036 IU Ergocaprex What is the name and dose of the medication? Vitamin D2 46195 IU Ergocaprex How often do you take it? As directed Who prescribed it? Rose Morrow APRN, NEW If a prescription is needed, patient would like it filled at the pharmacy listed in Meds & Orders. (Verify the pharmacy patient would like to use for this request is highlighted in blue in PharmacySelection under Meds & Orders) Is it okay to leave a detailed message on your voicemail? Yes (Advise caller that the PN call back number will end with [phone] or unknown) Please route to: Triage Pool LOPE FOLDING MACHINE ADJUSTER documented in this encounter Plan of Treatment Not on filedocumented as of this encounter Visit Diagnoses Not on filedocumented in this encounter Care Teams Bone Process Operator Relationship Specialty Start Date End Date Rose Morrow APRN, ROTARY DRILLER HELPER PCP - General Nurse Practitioner 10/30/20 [address] [place] [address] documented as of this encounter
--- OUTSIDE RECORDS SUMMARY | 2021-11-07 19:38 | XMS_ITS | Encounter Summary ---
:1980 Author Organization [facility] Address [address] [place] [address] Care Team Providers Name Role Phone Sandy Viera MD Primary Care Provider Reason for Visit Reason Comments Appt. Needed Encounter Details Date Type Department Care Team Description 10/23/2020 Telephone [facility] Stephanie Urbina MD Appt. Needed [address] Urology [address] [facility] [address] [place] [address] [place] [address] [phone] Social History Tobacco Use Types Packs/Day Years [...] documented as of this encounter Nursing Notes Alize Rawls RN - 10/23/2020 3:58 PM CDT ??? Patients appointment is scheduled on 11/13/20 at 1:[address] Patel with a 12:45 pm arrival time. ??? UA/Micro/Culture was ordered for 7-10 days prior to Botox appointment, patient will go in on approximately 11/03/20. ??? Patient has a follow up visit with Dr. Patel on 12/04/20 at 10:30 am after Botox appointment. ??? Patient was instructed that they need to stop taking all over the counter pain medications except for Tylenol. Patient verbalized understanding of the directions, and was encouraged to call back with any furtherquestions or concerns. No prior authorization required. Was told that this is billable per [facility] Guideline. Reference # [id number]. documented in this encounter Plan of Treatment Not on filedocumented as of this encounter Results (ABNORMAL) Urine Culture (11/04/2020 5:20 PM CDT) [facility] Method Time Signature Urine Culture Growth (A) 11/06/2020 [facility] 1:13 AM CDT HOSPITAL Urine Culture >100,000 CFU/mL 11/06/2020 [facility] Multiple 1:13 AM CDT HOSPITAL Bacterial Morphotypes Specimen Anatomical Collection Method Collection Time Receive d Time (Source) Location / / Volume Laterality Urine URINE SPECIMEN Non-blood 11/04/2020 5:20 PM 021 5:20 COLLECTION, CLEAN Collection / CDT PM CDT CATCH / Unknown Unknown Stephanie Patel MD LAB_1 Performing Organization Address City/State/ZIP Code [facility] [place] [address] UA (Micro if positive) - Lab collect (11/04/2020 5:20 PM CDT) [facility] Method Time Signature Urine Color Yellow Straw-Yellow 11/04/2020 [facility] 5:32 PM CDT LAB Urine Clarity Clear Clear 11/04/2020 [facility] 5:32 PM CDT LAB Specific 1.025 1.005 - 11/04/2020 [facility] [place], 1.030 5:32 PM CDT LAB Urine PH Urine 6.5 5.0 - 8.0 11/04/2020 [facility] 5:32 PM CDT LAB Protein, Negative Neg/Trace 11/04/2020 [facility] Urine Qual 5:32 PM CDT LAB (mg/dL) Glucose Urine Negative Negative 11/04/2020 [facility] Qual (mg/dL) 5:32 PM CDT LAB Ketones, Negative Negative 11/04/2020 [facility] Urine (mg/dL) 5:32 PM CDT LAB Urobilinogen, 0.2 <2.0 11/04/2020 [facility] Urine (EU/dL) 5:32 PM CDT LAB Bilirubin Negative Negative 11/04/2020 [facility] Urine 5:32 PM CDT LAB Blood, Urine Negative Neg/Trace 11/04/2020 [facility] 5:32 PM CDT LAB Nitrite Urine Negative Negative 11/04/2020 [facility] 5:32 PM CDT LAB Leukocyte Negative Negative 11/04/2020 [facility] Est. 5:32 PM CDT LAB Urine Source Clean Catch 11/04/2020 [facility] 5:32 PM CDT LAB Specimen Anatomical Collection Method Collection Time Receive d Time (Source) Location / / Volume Laterality Urine URINE SPECIMEN Non-blood 11/04/2020 5:20 PM 021 5:20 COLLECTION, CLEAN Collection / CDT PM CDT CATCH / Unknown Unknown Stephanie Patel MD LAB_1 Performing Organization Address City/State/ZIP Code Phon e Number [facility] [address] [facility] [place] [address] documented in this encounter Visit Diagnoses Diagnosis OAB (overactive bladder) - Primary Hypertonicity of bladder documented in this encounter Care Teams Offset Label Rewinder Relationship Specialty Start Date End Date Sandy Viera MD PCP - General Family Practice 07/20/19 10/29/20 [address] [address] [place] [address] documented as of this encounter
--- OUTSIDE RECORDS SUMMARY | 2021-11-07 19:38 | XMS_ITS | Encounter Summary ---
:1980 Author Organization [facility] Address [address] [place] [address] Care Team Providers Name Role Phone Rose Morrow APRN, MARKETING SERVICES COORDINATOR Primary Care Provider [phone] Reason for Visit Reason Comments Careplan: General Encounter Details Date Type Department Care Team Description 12/25/2020 Telephone [place] [facility] & Oralia Knapp Careplan: General Weight Center RN [address] [facility] [address] [place], [place] [address] Social History Tobacco Use Types Packs/Day Years [...] encounter Nursing Notes Castro Knapp RN - 12/25/2020 6:12 PM CST Bariatric Patient Tracking SmartForm updated to reflect current status with Bariatric Surgery and Weight Center. Reminded to: F/u with MIQUEL Mariee, PSYCH and get letter of support from therapist, get cpap dl from outside sleep clinic and marilee vit d after 02/26. Will need physical therapy evaluation before PA. SPECIALIST documented in this encounter Plan of Treatment Not on filedocumented as of this encounter Visit Diagnoses Not on filedocumented in this encounter Care Teams Electrician Elevator Maintenance Relationship Specialty Start Date End Date Rose Morrow, CONRAD, MARKETING SERVICES COORDINATOR PCP - General Nurse Practitioner 10/30/20 [address] [address] [place] [address] documented as of this encounter
--- OUTSIDE RECORDS SUMMARY | 2021-11-07 19:38 | XMS_ITS | Encounter Summary ---
:1980 Author Organization [facility] Address [address] [place] [address] Care Team Providers Name Role Phone Rose Morrow APRN, NEW Primary Care Provider [phone] Encounter Details Date Type Department Care Team Description 10/31/2020 Notes/Orders [place] [facility] & Oralia Knapp RN Weight Center [address] [facility] [address] [place], [place] [address] Social History Tobacco Use Types Packs/Day Years [...] documented as of this encounter Progress Notes Castro Knapp RN - 10/31/2020 12:39 PM CDT Bariatric Patient Tracking SmartForm updated to reflect current status with Bariatric Surgery and Weight Center. Needs f/u with Dr Gabriel. RD f/u. Psych f/u 11/13. Pul f/u 12/04. Hold off physical therapy for now. documented in this encounter Plan of Treatment Not on filedocumented as of this encounter Visit Diagnoses Not on filedocumented in this encounter Care Teams Land Clearer Relationship Specialty Start Date End Date Rose Morrow, COSMETIC SURGEON, DECK OFFICER PCP - General Nurse Practitioner 10/30/20 [address] [place] [address] documented as of this encounter
--- OUTSIDE RECORDS SUMMARY | 2021-11-07 19:38 | XMS_ITS | Encounter Summary ---
:1980 Author Organization [facility] Address [address] [place] [address] Care Team Providers Name Role Phone Rose Morrow APRN, CNP Primary Care Provider [phone] Reason for Visit Reason Comments DEPRESSION Encounter Details Date Type Department Care Team Description 01/13/2021 Nurse Triage [place] [address] Family Rose Morrow , DEPRESSION Medicine [place] [address] [facility] [address] [place] [address] [place], [place] [id number] (Wo rk) Social History Tobacco Use Types [...] documented as of this encounter Nursing Notes Flower Napoles LPN - 01/15/2021 7:56 AM CST The prior authorization for Pristiq 25mg has been approved and has been sent to the pharmacy. Authorized from December 15, 2020 to January 15, 2022. FLOWER [place]ES LPN RINTENDENT CONSTRUCTION India Maguire RN - 01/13/2021 12:44 PM CST Spoke with patient concerning worsening depression symptoms. She denies thoughts of harm to herself or anyone else. She was recently seen on 11/27/20 but feels that medication changes that were made are not helping and she feels her depression is worse. She feels that she is unable to perform basic self care tasks. Did speak with Dr. Viera who stats that patient is ok to be seen by psychiatry tomorrow but should call 911 with any worsening symptoms or thoughts of harm to herself or other. Patientdid mention at call back that she also is also intermittently seeing and feeling things that are notthere. She has seen mice in her house and he has tried to look for them and cannot find them, she also feels like bugs are crawling on her. Did advised to call 911 now for evaluation of hallucinations. Patient agreed with the plan. Problem list reviewed as related to this call. Reason for Disposition ??? Seeing or hearing or feeling things that are not there (i.e., auditory, visual, or tactile hallucinations) Protocols used: CONFUSION - [id number]-TY RINTENDENT CONSTRUCTION documented in this encounter Plan of Treatment Not on filedocumented as of this encounter Visit Diagnoses Not on filedocumented in this encounter Care Teams Agricultural Crop Farm Manager Relationship Specialty Start Date End Date Rose Morrow APRN, TOMBSTONE POLISHER PCP - General Nurse Practitioner 10/30/20 [address] [place] [address] documented as of this encounter
--- OUTSIDE RECORDS SUMMARY | 2021-11-07 19:38 | XMS_ITS | Encounter Summary ---
:1980 Author Organization [facility] Address [address] [address] Care Team Providers Name Role Phone Rose Morrow APRN, NEW Primary Care Provider [phone] Reason for Visit Reason Comments Procedure Encounter Details Date Type Department Care Team Description 11/13/2020 Procedure Visit [facility] Stephanie Patel MD Procedure [address] Urology [address] [facility] [address] [place] [id number] [phone] (Wo rk) Social History Tobacco Use Types [...] encounter Progress Notes Stephanie Patel MD - 11/13/2020 1:00 PM CDT DATE OF OPERATION: 11/13/2020 INDICATIONS FOR PROCEDURE: Narinder Lucas is a 40 y.o. female with a history of urinary urgency and frequency with urge incontinence that is unresponsive to oral medication. The patient had a good response to the botox and it lasted about 6 months. Last injection was done in the OR. This was 12 months ago. PREOPERATIVE DIAGNOSIS: Bladder instability/overactive bladder POSTOPERATIVE DIAGNOSIS: Bladder instability/overactive bladder PROCEDURE PERFORMED: Cystoscopy with injection of botulinum toxin into detrusor muscle. SURGEON: Stephanie Patel MD ANESTHESIA: Local ESTIMATED BLOOD LOSS: 0. URINALYSIS: Normal FINDINGS: See description of operation DESCRIPTION OF OPERATION: After obtaining informed consent, the patient was brought to the procedure room. She was positioned in the dorsal lithotomy and prepped and draped in the usual fashion. A catheter was passed and the bladder was drained. 2 urojets were placed in the urethra. This was allowed to stand for 10 minutes. The patient was repositioned into dorsal lithotomy. A 22-Luxembourgish injection scope was used. 200 units of botulinum toxin were dissolved in 20 cc injectable saline. The injection scope was placed and the botulinum toxin was injected through an injection needle into 20 around the bladder, avoiding the bladder neck and the trigone. 150 units were used. The patient tolerated the procedure moderately well without complication and was able to void afterwards. documented in this encounter Plan of Treatment Scheduled Orders Name Type Priority Associated Diagnoses Order S chedule POCT Automated Point of Care Routine OAB (overactive Ordered: 11/13/2020 Urinalysis Dipstick bladder) documented as of this encounter Procedures Procedure Name Priority Date/Time Associated Comments Diagnosis AUTOMATED URINALYSIS Routine 11/13/2020 2:41 PM R esults for this DIPSTICK POCT CDT procedure are in the results section. documented in this encounter Results (ABNORMAL) Automated Urinalysis Dipstick POCT (11/13/2020 2:41 PM CDT) [facility] Method Time Signature Glucose Urine Negative Negative 11/17/2020 [facility] Qual (mg/dL) 7:25 AM CDT LABORATORY Bilirubin Negative Negative 11/17/2020 [facility] Urine 7:25 AM CDT LABORATORY Ketones, Urine Negative Negative 11/17/2020 [facility] (mg/dL) 7:25 AM CDT LABORATORY Specific >=1.030 (A) 1.005 - 11/17/2020 [facility] [place], Urine 1.030 7:25 AM CDT LABORATORY Blood, Urine Negative Neg/Trace 11/17/2020 [facility] 7:25 AM CDT LABORATORY PH Urine 5.5 5.0 - 8.0 11/17/2020 [facility] 7:25 AM CDT LABORATORY Protein, Urine Negative Neg/Trace 11/17/2020 [facility] Qual (mg/dL) 7:25 AM CDT LABORATORY Urobilinogen, 0.2 <2.0 11/17/2020 [facility] Urine (EU/dL) 7:25 AM CDT LABORATORY Nitrite Urine Negative Negative 11/17/2020 [facility] 7:25 AM CDT LABORATORY Leukocyte Est. Negative Negative 11/17/2020 [facility] 7:25 AM CDT LABORATORY Urine Color Yellow Straw-Yellow 11/17/2020 [facility] 7:25 AM CDT LABORATORY Urine Clarity Clear Clear 11/17/2020 [facility] 7:25 AM CDT LABORATORY Performing URO BU 11/17/2020 [facility] Location 7:25 AM CDT LABORATORY Specimen Anatomical Collection Method Collection Time Receive d Time (Source) Location / / Volume Laterality Urine 11/13/2020 2:41 PM 7:25 CDT AM CDT Stephanie Patel MD LAB_1 Performing Organization Address City/State/ZIP Code Phon e Number [facility] [address] [place] [address] documented in this encounter Visit Diagnoses Diagnosis OAB (overactive bladder) - Primary Hypertonicity of bladder documented in this encounter Administered Medications Inactive Administered Medications - up to 3 most recent administrations Medication Order MAR Action Action Date Dose Rate Site botulinum toxin type A (BOTOX) Given 11/13/2020 3:36 PM CDT 150 Units Other injection 150 Units 150 Units, Intramuscular, ONCE, On Fay 11/13/20 at 1600, For 1 dose, Preparation: Single glove, gown; face mask optional Administration: Single glove lidocaine (UROJET) 2 % prefilled syringe Given 11/13/2020 3:02 PM CDT Urethral, ONCE, On Fay 11/13/20 at 1530, For 1 dose documented in this encounter Care Teams Cad Designer Relationship Specialty Start Date End Date Rose Morrow, LIFTER, VOCATIONAL ED INSTRUCTOR PCP - General Nurse Practitioner 10/30/20 [address] [place] [address] documented as of this encounter
--- OUTSIDE RECORDS SUMMARY | 2021-11-07 19:38 | XMS_ITS | Encounter Summary ---
:1980 [address] [facility] [facility] Address [address] [place] [address] Care Team Providers Name Role Phone Sandy Viera MD Primary Care Provider Reason for Visit Reason Comments CHRONIC PAIN Encounter Details Date Type Department Care Team Description 08/28/[address] [facility] [address] Amina Francisco, Chron ic low back Occupational Rehab OTR/L pain, unspecified [address] Kimmy Molina [address] [facility] back pain laterality, [address] unspecified whether [place], [place] sciat ica present [phone] (Primary Dx) [phone] Social History Tobacco Use Types Packs/Day Years [...] documented as of this encounter Progress Notes Amina Francisco, OTR/L - 08/28/2020 3:00 PM CDT Kimmy Molina Occupational Therapy Video Visit Evaluation/Plan of Care Time service began: 3:07 p.m. Time service ended: 3:46 p.m. * Did not answer on first attempt Patient location: patient's home Provider location: [facility] Occupational Therapy - Lifestyle Renewal Evaluation/Plan of Care Initial Certification Period: 08/28/20 to 12/01/20 Referring Provider: Pedrito Braun MD Visit Diagnosis: chronic pain Precautions: depression, Orders: Evaluation and treat. Onset/Referral Date: Referral date 06/09/20 SUBJECTIVE Reason for visit: Patient presents to Occupational Therapy today for an evaluation. Patient currently reports decreased function with daily activities due to chronic low back pain. Patient Therapy Goals: Reduce pain Past Medical History: Patient has a past medical history of COVID-19 (03/16/2020), Depression (emotion) ([facility]), Overactive bladder, Sleep apnea, and Vitamin D deficiency. Pain Rating: Did not rate current level of pain(on a 0 to 10 scale, 10 being worst pain) Symptoms: lower back, depression, memory difficulties, fatigued, poor sleep, temperature fluctations Aggravating factors/habits: walking, any activity Relieving factors/habits: distraction, ignore it, relaxation ADL/IADL Performance and Satisfaction: Activities that are impacted by pain include: all daily activities Client reported she has a difficult time doing basic self cares such as dressing and bathing.She has difficulty with walking, doing the dishes, and cooking/meal preparation. She states she mostly is sitting on the couch all day. Living Situation: [facility] home- 7 yo old son with special needs Family roles, social relationships, and support networks: Patient reports not receiving adequate support from family and friends. Reports some help from spouse. Sleep Routine: Client reports inconsistent sleep and wake times. Pain is disrupted to sleep. Client has sleep apnea but waiting for a new CPAP. Exercise Routine: Client currently does not engage in an exercise routine. Diet: History of binge eating disorder. Does not eat regularly and reports poor food choices. Fluid Intake: Client reports not drinking enough water. Vocation: unemployed Leisure/Interest and Level of Participation: Client expresses low satisfaction and participation in meaningful activities when symptoms are present. OBJECTIVE General: alert, cooperative Cognition: reports difficulties with her memory Communication: WNL/WFL Posture and awareness: bracing pattern in neck and bracing pattern in shoulders Cervical AROM: Tightness at end range Shoulder screen: Tightness at end range Jaw: WNL/WFL Palpation: Per report neck/shoulder tension Breathing/Respiration: shallow breathing, reverse breathing patterns Endurance/Fatigue: fatigued, poor endurance Current upper extremity ROM: Right: WFL Left: WFL Current upper extremity strength: Not tested due to video visit Fish Farmer strength:Not tested due to video visit Coordination: decreased balance Sensory Sensitivities: Patient states increased sensitivity to the following sensory input: None Mental Health: anxiety and depression OT Outcomes: Patient Self Efficacy Questionnaire (PSEQ): TBA (Score range 0-60, where 60 is best) Today's Intervention/Charges: OT evaluation charges: high complexity: high complexity due to need for thorough medical review, significant medical and psychosocial history, multiple co- morbidities impacting function and symptoms, 5or more performance deficits, multiple treatment options, and significant modification required during evaluation. Self care/home management: 15 minutes Patient introduced to the topic of pain neuroscience education and that improving knowledge of how pain works promotes improved recovery and rehabilitation. Current knowledge and understanding of patient on pain related topics was explored to create baseline. Educated patient on OT/lifestyle renewal approach with focus on self care strategies and establishing healthy lifestyle habits/routines to support pain reduction and improved participation in daily activities. Provided brief discussion on drinking more water, using a heating pad regularly and completing diaphragmatic breathing regularly throughout the day which was taught during today's session. Education received: Pain cycle, nervous system thresholds, and lifestyle behaviors that contribute to pain Exercise, nutrition, and healthy living habits Occupational therapy role in chronic pain Response to Treatment: Client demonstrated/verbalized understanding of self-care strategies. Timed Code Treatment Minutes: 15 minutes Total Treatment Minutes: 39 minutes ASSESSMENT Therapist Impression/Summary: Client is a 39 year old female who presents for occupational therapy evaluation secondary to chronic pain. Client's symptoms include chronic low back pain, fatigue, poor sleep, depression, anxiety, and poor activity tolerance. . Client has demonstrated a decline in ability to participate and perform daily activities secondary to symptoms. Client demonstrates nervous system and sensory system sensitivity, poor posture and body awareness, and decreased self-regulation and coping skills impacting daily activities and overall well-being. Following initial education, client demonstrates increased understanding of how daily habits and routines impact pain symptoms and daily functioning. Client will benefit from ongoing skilled occupational therapy services for education and training on healthy lifestyle habits, nervous system calming strategies, activity pacing strategies, and self- regulation techniques to maximize occupational performance and participation, promoteoptimal well-being, and prevent further decline in function. Significant Impairments: pain, decreased activity tolerance, autonomic dysregulation, poor posture, fatigue, mysofascial tension, mental health symptoms, avoidance Evaluation Complexity Rating: Occupational profile and history: high Assessment: high Clinical decision making:high Overall complexity rating:high Recommendations: Continue skilled occupational therapy Functional Limitations: The above impairments limit patient's performance tolerating and completing self care, work and leisure safely and independently. Goals/Functional Outcomes: joint terminal attack controller goals to be completed within 12 weeks 1) Client will identify 2-3 triggers to symptoms and be able to implement 2-3 pain management techniques to self-manage symptoms and promote participation in daily activities 2) Through facilitation of therapist and neuromuscular re-education, client will be able to identifyand implement one or more strategies to decrease muscle tension to prevent exacerbation of pain and allow for optimal participation in daily occupations. 3) Client will report improved sleep quality for overall well-being and decreased pain by implementing at least 2 sleep hygiene techniques 5 out of 7 nights per week. 4) Client with demonstrate a decrease in the impact of pain on quality of life according to the CGI (Clinical global impression), by consistently implementing 3 or more lifestyle modification strategies to promote participation and satisfaction in ADLs/IADLs/leisure, improve productivity, and optimize well-being. 5) Client will demonstrate understanding and implement 2 or more fatigue management/energy conservation strategies to prevent exacerbation of pain during daily activities Potential Barriers to Goal Achievement or Learning: compliance, mental health Prognosis: Good Fair PLAN Planned Intervention/Education: Sensory regulation, pain neuroscience education, ADL/Self management, therapeutic exercise, therapeutic activity, self care/home management, neuromuscular re-education, cognitive skills development, manual therapy, biofeedback, modalities, Aquatic therapy and autonomic self regulation training Frequency: 1-2 x week Duration: 90 days Discharge Plan: Patient will be discharged from therapy when goals are achieved or patient plateaus in progress. Informed Consent: The patient was educated on the condition, planned therapy intervention and expectation from treatment. Goals were a collaborative effort of the therapist and patient caregiver. Risks, benefits and alternatives to treatment have been explained. Patient and/or family in agreement with the care plan. Plan for Next Treatment: Next visit: General home exercise program - gentle stretching Compensatory reminders - check list reminders PNE Non-pharmacolgoc pain management- stretching, ice/heating pad Body mechanics Activity pacing Healthy habits The band lining bander is completed by the therapist and the referring clinician's electronic signature certifies medical necessity for the plan above. The patient has been notified of following: This visit will be conducted via video between you and your occupational therapist, as we have found certain health care needs can be provided without the need for an in-person physical exam. Your occupational therapist will provide further instructions and programming notes via [employer], an online e ducation and home exercise program platform, as appropriate. Mode of transmission: ZoomSafer Therapist signature: FAVIOLA Bryant 11:25 AM 09/02/2020 documented in this encounter Plan of Treatment Not on filedocumented as of this encounter Visit Diagnoses Diagnosis Chronic low back pain, unspecified back pain laterality, unspecified whether sciatica present - Primary documented in this encounter Care Teams Gas Distribution And Emergency Clerk Relationship Specialty Start Date End Date Sandy Viera MD PCP - General Family Practice 07/20/19 10/29/20 [address] [place] [place] [address] documented as of this encounter
--- OUTSIDE RECORDS SUMMARY | 2021-11-07 19:38 | XMS_ITS | Encounter Summary ---
:1980 Author Organization [facility] Address [address] [place] [address] Care Team Providers Name Role Phone Sandy Viera MD Primary Care Provider Reason for Visit Reason Comments Careplan: General Encounter Details Date Type Department Care Team Description 09/01/2020 Telephone [facility] & Oralia Knapp, Careplan: General Weight Center RN [address] [facility] [address] [place], [place] [id number] Social History Tobacco Use Types Packs/Day Years [...] of this encounter Nursing Notes Castro Knapp, SHEYLA - 09/01/2020 4:02 PM CDT Bariatric Patient Tracking SmartForm updated to reflect current status with Bariatric Surgery and Weight Center. Left a voicemail. F/u with Dr Gabriel, MIQUEL, and psych. Please help in coordinating care between your therapist and our psychologist. Keep your appointment with pulmonology 09/19. We need you to continue to work with them and get clearance to proceed with bariatric surgery. documented in this encounter Plan of Treatment Not on filedocumented as of this encounter Visit Diagnoses Not on filedocumented in this encounter Care Teams Nanoscience Technician Relationship Specialty Start Date End Date Sandy Viera MD PCP - General Family Practice 07/20/19 10/29/20 [address] [place] [address] documented as of this encounter
--- OUTSIDE RECORDS SUMMARY | 2021-11-07 19:38 | XMS_ITS | Encounter Summary ---
:1980 Author Organization [facility] Address [address] [facility] [place] [address] Care Team Providers Name Role Phone Rose Morrow APRN, VEHICLE GLASS TECHNICIAN Primary Care Provider [phone] Reason for Visit Reason Comments Medication Request Vitamin D3 Encounter Details Date Type Department Care Team Description 01/14/2021 Telephone [facility] Bariatric Surgery Sudhir Koch, dication Request & Weight Center RN (Vitamin D3) [address] [facility] [address] [place], [place] [address] Social History Tobacco Use Types Packs/Day Years [...] documented as of this encounter Nursing Notes Sudhir Koch RN - 01/15/2021 11:00 AM CST Spoke with pt and conveyed to her that she can go to the pharmacy for her refill. Pt understood and had no further questions. ER CHARGER Sudhir Koch RN - 01/14/2021 4:37 PM CST Pt called requesting vitamin D3 prescriptions. According to pt she misplaced the one she had. Pt said since she did her vitamin D lab she had not received the result. Accounts Payable Professional told pt that her labs result was mailed, she should keep checking mail box or check in her TxtFeedback account. Please advise! ER CHARGER documented in this encounter Plan of Treatment Not on filedocumented as of this encounter Visit Diagnoses Diagnosis Mixed hyperlipidemia (HRC) Mixed hyperlipidemia Hyperinsulinemia (HRC) Other specified hypoglycemia Prediabetes Other abnormal glucose documented in this encounter Care Teams Metal Moulder Relationship Specialty Start Date End Date Rose Morrow, MEDICAL VOUCHER CLERK, VEHICLE GLASS TECHNICIAN PCP - General Nurse Practitioner 10/30/20 [address] [place] [address] documented as of this encounter
--- OUTSIDE RECORDS SUMMARY | 2021-11-07 19:38 | XMS_ITS | Encounter Summary ---
:1980 Author Organization [facility] Address [address] [place] [address] Care Team Providers Name Role Phone Sandy Viera MD Primary Care Provider Encounter Details Date Type Department Care Team Description 08/19/2020 Lab Visit [facility] Morbid obesity with BMI of Laboratory 50.0-59.9, adult (C) [id number] [place] [address] Social History Tobacco Use Types Packs/Day Years [...] Procedure Name Priority Date/Time Associated Comments Diagnosis INSULIN, SERUM (10HR Routine 08/19/2020 2:15 PM Morbid obesity with Results for this FAST RECOMMENDED) CDT BMI of 50.0-59.9, proce dure are in adult (HRC) the results section. LIPID PANEL AND Routine 08/19/2020 2:15 PM Morbid obesity with Results for this DIRECT LDL(IF CDT BMI of 50.0-59.9, procedure are in NEEDED) adult (HR) the results section. CREATININE / GFR Routine 08/19/2020 2:15 PM Morbid obesity wit h Results for this CDT BMI of 50.0-59.9, procedure are in adult (HRC) the results section. TSH, SENSITIVE Routine 08/19/2020 2:15 PM Morbid obesity with Results for this CDT BMI of 50.0-59.9, procedure are in adult (HRC) the results section. HGB A1C Routine 08/19/2020 2:15 PM Morbid obesity with Re sults for this CDT BMI of 50.0-59.9, procedure are in adult (HRC) the results section. ALT (SGPT) Routine 08/19/2020 2:15 PM Morbid obesity with Re sults for this CDT BMI of 50.0-59.9, procedure are in adult (HRC) the results section. AST Routine 08/19/2020 2:15 PM Morbid obesity with Re sults for this CDT BMI of 50.0-59.9, procedure are in adult (HRC) the results section. GLUCOSE Routine 08/19/2020 2:15 PM Morbid obesity with Re sults for this CDT BMI of 50.0-59.9, procedure are in adult (HRC) the results section. documented in this encounter Results TSH (08/19/2020 2:15 PM CDT) athologist Signature TSH, Sensitive 1.53 0.30 - 08/19/2020 [facility] 4.50 10:24 PM CDT LABORATORY uIU/mL Specimen Anatomical Collection Method / Collection Time Recei adama Time (Source) Location / Volume Laterality Blood Venipuncture / 08/19/2020 2:15 08/19/2020 2:21 Unknown PM CDT PM CDT [facility]_1 Performing Organization Address City/State/ZIP Code Phon e Number [facility] [address] [place] [address] (ABNORMAL) Lipid Panel and Direct LDL(If Needed) (08/19/2020 2:15 PM CDT) [facility] gist Method Time Signature Cholesterol 224 (H) 0 - 199 08/19/2020 [facility] mg/dL 3:27 PM CDT LABORATORY Triglyceride 175 (H) <=149 08/19/2020 [facility] mg/dL 3:27 PM CDT LABORATORY HDL Cholesterol 43 >=40 08/19/2020 [facility] mg/dL 3:27 PM CDT LABORATORY LDL, Calculated 146 (H) <130 08/19/2020 [facility] mg/dL 3:27 PM CDT LABORATORY Non HDL Chol, 181 (H) <=159 08/19/2020 [facility] Calculated mg/dL 3:27 PM CDT LABORATORY Cholesterol/HDL 5.2 08/19/2020 [facility] Ratio 3:27 PM CDT LABORATORY Hours Fasting 12 08/19/2020 [facility] 3:27 PM CDT LABORATORY Specimen Anatomical Collection Method / Collection Time Recei adama Time (Source) Location / Volume Laterality Blood Venipuncture / 08/19/2020 2:15 08/19/2020 2:20 Unknown PM CDT PM CDT [facility]_1 Performing Organization Address [facility] Code Phon e Number [facility] [address] [place] [phone] (ABNORMAL) Glucose (08/19/2020 2:15 PM CDT) P athologist Signature Glucose 131 (H) 70 - 100 08/19/2020 [facility] mg/dL 3:27 PM CDT LABORATORY Comment: The given reference range is fo r the fasting state. Non-fasting reference range for glucose is 70 - 180 mg/dL. Hours Fasting 08/19/2020 3:27 PM CDT [facility] Specimen Anatomical Collection Method / Collection Time Recei adama Time (Source) Location / Volume Laterality Blood Venipuncture / 08/19/2020 2:15 08/19/2020 2:20 Unknown PM CDT PM CDT [facility]_1 Performing Organization Address [facility] Phon e Number [facility] [address] [place] [address] ALT (SGPT) (08/19/2020 2:15 PM CDT) P athologist Signature ALT (SGPT) 29 0 - 55 U/L 08/19/2020 [facility] 3:27 PM CDT LABORATORY Specimen Anatomical Collection Method / Collection Time Recei adama Time (Source) Location / Volume Laterality Blood Venipuncture / 08/19/2020 2:15 08/19/2020 2:20 Unknown PM CDT PM CDT [facility]_1 Performing Organization Address [facility]/ZIP Code Phon e Number [facility] [address] [place] [address] AST (08/19/2020 2:15 PM CDT) athologist Signature AST (SGOT) 23 10 - 40 U/L 08/19/2020 [facility] 3:27 PM CDT LABORATORY Specimen Anatomical Collection Method / Collection Time Recei adama Time (Source) Location / Volume Laterality Blood Venipuncture / 08/19/2020 2:15 08/19/2020 2:20 Unknown PM CDT PM CDT [facility]_1 Performing Organization Address [facility] Phon e Number [facility] [address] [place], [place] [address] Creatinine / GFR (08/19/2020 2:15 PM CDT) athologist Signature Creatinine 0.60 0.55 - 08/19/2020 [facility] 1.02 mg/dL 3:27 PM CDT LABORATORY GFR, Estimated >60 >60 08/19/2020 [facility] mL/min/1.7 3:27 PM CDT LABORATORY 3m2 Specimen Anatomical Collection Method / Collection Time Recei adama Time (Source) Location / Volume Laterality Blood Venipuncture / 08/19/2020 2:15 08/19/2020 2:20 Unknown PM CDT PM CDT [facility]_1 Performing Organization Address [facility] Phon e Number [facility] [address] [place], [place] [phone] (ABNORMAL) Hgb A1c (08/19/2020 2:15 PM CDT) Analysis Performed At Path logist Time Signature Hemoglobin A1C 5.7 (H) <=5.6 % 08/19/2020 [facility] 3:45 PM CDT LABORATORY Specimen Anatomical Collection Method / Collection Time Recei adama Time (Source) Location / Volume Laterality Blood Venipuncture / 08/19/2020 2:15 08/19/2020 2:21 Unknown PM CDT PM CDT Narrative [facility] - 08/19/2020 3:45 PM CDT For patients not previously diagnosed with diabetes: 5.7-6.4%: Increased risk for diabetes 6.5% and greater: Diagnostic for diabete s For patients diagnosed with diabetes: <8.0%: Goal of therapy for ages 18-75 Clinicians may recommend a higher or low er goal for specific individuals. This Hemoglobin A1c assay has significan t interference with elevated Hemoglobin (HbF) and other Hemoglobin variants. In patients with results that do not correlate clinically, contact the laboratory for further direction. [facility]_1 Performing Organization Address City/[facility]/ZIP Code Phon e Number [facility] [address] [place] [address] (ABNORMAL) Insulin, Serum (10Hr Fast Recommended) (08/19/2020 2:15 PM CDT) [facility] gist Method Time Signature Insulin, 95.9 (H) 1.9 - 08/20/2020 [facility] Serum 23.0 10:46 AM CDT [facility] uIU/mL Specimen Anatomical Collection Method / Collection Time Recei adama Time (Source) Location / Volume Laterality Blood Venipuncture / 08/19/2020 2:15 08/19/2020 2:20 Unknown PM CDT PM CDT [facility]_1 Performing Organization Address City/State/ZIP Code Phon e Number [facility] [address] [address] documented in this encounter Visit Diagnoses Diagnosis Morbid obesity with BMI of 50.0-59.9, ad ult (HRC) documented in this encounter Care Teams Music Journalist Relationship Specialty Start Date End Date Sandy Viera MD PCP - General Family Practice 07/20/19 10/29/[id number] [place] [address] [place] [address] documented as of this encounter
--- OUTSIDE RECORDS SUMMARY | 2021-11-07 19:38 | XMS_ITS | Encounter Summary ---
:1980 Author Organization [facility] Address [address] [place] [address] Care Team Providers Name Role Phone Rose Morrow APRN, CNP Primary Care Provider [phone] Encounter Details Date Type Department Care Team Description 12/04/2020 Office Visit [facility] [address] Portia Mera CAMRYN (obstructive Pulmonary Medicine [place] sleep apnea) (Primary [address]) [place], [place] S [address] [place], [place] [phone] (Wo rk) Social History Tobacco Use Types [...] documented as of this encounter Progress Notes Portia Mera APRN, CNP - 12/04/2020 2:30 PM CDT Patient did not show up to appointment by 14:49. She will need to reschedule at her earliest convenience. Portia Mera APRN, CNP documented in this encounter Miscellaneous Notes Assessment & Plan Note - Portia Mera APRN, CNP - 12/04/2020 2:47 PM CDT Associated Problem(s): CAMRYN (obstructive sleep apnea) PSG 2016 [facility] AHI 6 RDI 7 documented in this encounter Plan of Treatment Not on filedocumented as of this encounter Visit Diagnoses Diagnosis CAMRYN (obstructive sleep apnea) - Primary Obstructive sleep apnea (adult) (pediatr ic) documented in this encounter Care Teams Package Liner Relationship Specialty Start Date End Date Rose Morrow APRN, CNP PCP - General Nurse Practitioner 10/30/20 [address] [place] [address] documented as of this encounter
--- OUTSIDE RECORDS SUMMARY | 2021-11-07 19:38 | XMS_ITS | Encounter Summary ---
:1980 Author Organization [facility] Address [address] [place] [address] Care Team Providers Name Role Phone Sandy Viera MD Primary Care Provider Reason for Visit Reason Comments CHRONIC PAIN Encounter Details Date Type Department Care Team Description [facility] - Lifestyle OTR/L pain, unspecified Renewal [address] Kimmy Molina back pain laterality, [address] [address] [place] [address] [place], [place] sciatica present [phone] (Primary Dx) [phone] (Wo rk) Social History Tobacco Use Types [...] as of this encounter Progress Notes Jessica Camilo, OTR/L - 09/22/2020 3:00 PM CDT [facility] Occupational Therapy Lifestyle Renewal Program Progress Note Visit Number: 2 Initial Certification Period: 08/28/20 to 12/01/20 Referring Provider: Pedrito Braun MD Visit Diagnosis: chronic pain Precautions: depression, Orders: Evaluation and treat. Onset/Referral Date: Referral date 06/09/20 SUBJECTIVE: Client reports ongoing chronic daily low back pain and depression impacting all daily activities. Reports she often spends most of her days at home sitting in recliner for 4-5 hours at a time, and thenoccasionally will have a day where she tries to get a lot of chores done and then flares up afterward. OBJECTIVE Current Objective Findings: Pleasant, engaged, increased understanding of pain hygiene strategies following session, noted benefit from diaphragm breathing and gentle stretches Treatment/Education Today: Self Care/Home management trainin minutes: Continued client education on chronic pain symptom management and lifestyle changes that allow for improved control of pain and to support emotional wellbeing including: engaging in healthy sleep habits, prioritizing self-care, role of regular exercise and movement (encouraged starting with low impact walking program, being more consistent with PT exercises, gentle stretches, getting up during the day at least 1x/hour), in managing pain, use of activity pacing and ADL modification strategies (initiated education on boom/bust cycle and impact on pain, encouraged more even level of activity throughout the week and identifying 1-2 chores or other activities to complete each day with rest breaks in between, use of heat, pillow for low back, foot rest for positioning, option for kitchen stool in kitchen for seated rest breaks during prolonged standing), and role of mindfulness and relaxation techniques (diaphragm breathing 3x/day when alarm for medication goes off). Client receptive to education and reported motivation to incorporate healthy lifestyle habits into daily routine to improve symptom management and increase overall wellbeing. With maximum therapist facilitation client was able to problem solve barriers to creating lifestyle changes andcome up with a plan to address barriers. Therapeutic Activity: 15 minutes: With therapist facilitation, client completed diaphragmatic breathing in supported sitting with cueing on neutral spine alignment and activation of diaphragm as prime bottom turning lathe tender for respiration. Provided education on the physiological effects of diaphragmatic breathing forincreasing the parasympathetic nervous system response and improving pain management. Also incorporated evidence-based mindfulness meditation during breathing, using inhales and exhales as anchors for attention. Client completed diaphragmatic breathing and mindfulness meditation with moderate therapist facilitation and reported improved relaxation response and decreased symptoms following session. Provided client with resources to support carryover of diaphragmatic breathing into home program. Therapeutic Exercise: 10 minutes: With therapist facilitation, client completed the following therapeutic exercises for improved mobility and pain management: Access Code: [email or web address]: [email or web address] 09/22/2020repared by: Jessica Woods Chair Yoga Seated Cat-Cow - 1 x daily - 7 x weekly - 5-8 reps Seated Child's Pose with Table - 1 x daily - 7 x weekly - 2-3 reps Timed Code Treatment Minutes: 54 Total Treatment Minutes: 54 Current Home Exercise Program List: Pain hygiene strategies Diaphragm breathing 3x/day paired with alarm for medications Gentle stretches: seated cat/cow, seated child's pose with table Heating pad, positioning supports for comfort ASSESSMENT/PROGRESS TOWARD GOALS: Client demonstrated improved body awareness, more relaxed posture, and reduced muscle tension following session as well as improved understanding of pain hygiene strategies to improve pain management and daily function. Client presents with motivated affect with regards to learning non-pharmacologicalpain management techniques and improving ability to better tolerate daily activities including home management tasks. Barriers to progress include history of depression and difficulty with carrying over education and strategies into daily routine and client will benefit from repetition and reinforcement from OT to support implementation of home program. Client continues to demonstrate sensory and nervous system sensitivity, muscle guarding and tension, decreased coping skills, decreased activity tolerance and engagement, and poor posture and body awareness and will benefit from ongoing OT services to improve pain management and coping skills for participation and satisfaction in ADLs/IADLs. 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 Progressing 5) Client will demonstrate understanding and implement 2 or more fatigue management/energy conservation strategies to prevent exacerbation of pain during daily activities PLAN: Follow up on pain hygiene strategies and continue education, continue gentle stretches and therapeutic yoga, strategies to support consistency with home program documented in this encounter Plan of Treatment Not on filedocumented as of this encounter Visit Diagnoses Diagnosis Chronic low back pain, unspecified back pain laterality, unspecified whether sciatica present - Primary documented in this encounter Care Teams [place] Former Machine Operator Relationship Specialty Start Date End Date Sandy Viera MD PCP - General Family Practice 07/20/19 10/29/20 [address] [place] [address] documented as of this encounter
--- OUTSIDE RECORDS SUMMARY | 2021-11-07 19:38 | XMS_ITS | Encounter Summary ---
:1980 Author Organization [facility] Address [address] [place] [address] Care Team Providers Name Role Phone Rose Morrow APRN, CNP Primary Care Provider Reason for Visit Reason Onset Date Comments Video Visit 10/30/2020 Encounter Details Date Type Department Care Team Description 10/30/2020 Telemedicine [facility] Rose Morrow Sev ere episode of recurrent major depressive disorder, without psychotic features (HRC) (Primary Dx); Medicine [place] MIKEY (generalized anxiety disorder); [address] [address] [address] CAMRYN (obstructive sleep apnea); [place] [address] [place], [place] Morbid obesity with BMI of 5 0.0-59.9, adult (HRC); [phone] Dry skin [phone] (Wo rk) Social History Tobacco Use Types [...] as of this encounter Progress Notes Rose Morrow APRN, CNP - 10/30/2020 11:00 AM CDT Subjective: Today's visit with Narinder was conducted as a scheduled video visit. She is following up on several concerns last discussed 10/10. Depression: Patient has slowly been titrating back onto her antidepressants. She had completely discontinued Wellbutrin and Cymbalta. She is now taking Wellbutrin XL 300mg daily. She feels like it has been somewhat helpful and she has not had side effects. She plans to increase to 450mg in a few days.She has not yet started the Cymbalta, which I hoped would also help with her chronic back pain. She has been seeing a counselor every two weeks. She always feels better after talking with her, but is not sure if she's noticed any change in her overall feelings of depressions since starting it 6 monthsago. Patient denies SI. CAMRYN: Patient is happy to report that she has an appt today to get a new CPAP. She has severe CAMRYN andstopped using her CPAP when she heard about the recall. She has been extremely tired since going offthe CPAP and has had trouble with her memory/cognition. Dry skin: Patient reports that she has dry skin involving her face and body. She has tried differentlotions without improvement. Objective: There were no vitals taken for this visit. General: WDWN female in NAD Psych: Appropriate mood and affect Skin: Unable to examine Assessment/Plan: Severe episode of recurrent major depressive disorder, without psychotic features (HRC)/MIKEY (generalized anxiety disorder) (HRC) - Advised that patient continue medication titration plan, eventually transitioning to Wellbutrin [id number] daily and Cymbalta 20mg daily. - Discussed black box warning: Including worsening of depression or thoughts of suicide which may occur as a result of the meds and often occur at initiation or with a change in dose, but can occur at any time. Both of these indicate a need to be seen emergently. In addition, discussed with patient common reactions including nausea, headache, insomnia, anxiety, diarrhea, dry mouth, sexual side effects, and advised to return to clinic if notes these or other symptoms. Patient wishes to proceed. Prescription provided. - Continue counseling - Patient has had treatment-resistant depression now for 12 years. She has had adherence problems with medication previously, so it's possible that she will respond positively to this drug trial. However, recommended that she proactively set up Psychiatry appt so that she can meet with specialist if depression does not improving on this treatment plan. - Recheck with me in 1 month, sooner if worsening. CAMRYN (obstructive sleep apnea): Start CPAP as soon as possible Dry skin - Advised CeraVe moisturizer after bathing daily and before bed. - For scaly areas, initiate triamcinolone acetonide (KENALOG) 0.1 % cream; Apply topically two timesa day. Indications: Atopic Dermatitis - Follow up if no improvement. Clinician located at home. Patient located at home Billing based on: Complexity Rose Morrow APRN, CNP documented in this encounter Plan of Treatment Not on filedocumented as of this encounter Visit Diagnoses Diagnosis Severe episode of recurrent major depres sive disorder, without psychotic features (HRC) - Primary MIKEY (generalized anxiety disorder) (HRC) Generalized anxiety disorder CAMRYN (obstructive sleep apnea) Obstructive sleep apnea (adult) (pediatr ic) Morbid obesity with BMI of 50.0-59.9, ad ult (HRC) Dry skin Other symptoms involving skin and integu mentary tissues documented in this encounter Care Teams Efficiency Manager Relationship Specialty Start Date End Date Rose Morrow APRN, CNP PCP - General Nurse Practitioner 10/30/20 [address] [place] [address] documented as of this encounter
--- OUTSIDE RECORDS SUMMARY | 2021-11-07 19:38 | XMS_ITS | Encounter Summary ---
:1980 Author Organization [facility] Address [address] [place] [address] Care Team Providers Name Role Phone Rose Morrow APRN, NEW Primary Care Provider [phone] Encounter Details Date Type Department Care Team Description 11/25/2020 Lab Visit [facility] Vitamin D deficiency [address] [place] [address] Social History Tobacco Use [...] Name Priority Date/Time Associated Diagnosis Comme nts VITAMIN D Routine 11/25/2020 5:05 PM Vitamin D deficiency R esults for this 25-HYDROXY, TOTAL CDT procedure are in the results section. documented in this encounter Results (ABNORMAL) Vitamin D 25-Hydroxy, Total (11/25/2020 5:05 PM CDT) P athologist Signature Vitamin D, 16 (L) 30 - 80 11/25/2020 [facility] 25-OH, Total ng/mL 10:25 PM CDT LABORATORY Specimen Anatomical Collection Method / Collection Time Recei adama Time (Source) Location / Volume Laterality Blood Venipuncture / 11/25/2020 5:05 11/25/2020 5:05 Unknown PM CDT PM CDT Narrative [facility] - 11/25/2020 10:25 PM CDT Expected values Deficiency: <20 ng/mL Insufficiency: 20-29 ng/mL Optimum: 30-80 ng/mL Possible toxicity: >80 ng/mL Pamela Mills PA-C LAB_1 Performing Organization Address City/State/ZIP Code Phon e Number [facility] [address] [place] [address] documented in this encounter Visit Diagnoses Diagnosis Vitamin D deficiency (HRC) Unspecified vitamin D deficiency documented in this encounter Care Teams Transportation Attendant Relationship Specialty Start Date End Date Rose Morrow, CEMENTER, PROPERTY DISPOSAL OFFICER PCP - General Nurse Practitioner 10/30/[address] [place], [place] [address] documented as of this encounter
--- OUTSIDE RECORDS SUMMARY | 2021-11-07 19:38 | XMS_ITS | Encounter Summary ---
:1980 Author Organization [employer] Address [address] [address] Care Team Providers Name Role Phone Sandy Viera MD Primary Care Provider Reason for Visit Reason Comments QUESTIONS, GENERAL Encounter Details Date Type Department Care Team Description 09/12/2020 Telephone [facility] Pulmonary, Provider QUESTIONS, GENERAL Pulmonary Medicine [address] [place], [place] [address] Social History Tobacco Use Types Packs/Day Years [...] documented as of this encounter Nursing Notes Moe Lee RN - 09/12/2020 10:18 AM CDT Pt calling in upset that her appointment was rescheduled to November. Pt states she made appointment in July and now has to wait till November. Upon chart review, appointment canceled per pt request. Pt states she was called to rescheduled. Surgical Appliance Fitter spoke to blast furnace auxiliaries supervisor, Lamar CARRION, pt was first scheduled in correctly with wrong provider and is now scheduled with correct provider. Pt was relayed this information. Pt was put on cancellation list and offered a sooner appointment than what was currently scheduled. Pt unsatisfied with these options. Pt states she might cancel appointments and hung up. documented in this encounter Plan of Treatment Not on filedocumented as of this encounter Visit Diagnoses Not on filedocumented in this encounter Care Teams Tail Sawyer Relationship Specialty Start Date End Date Sandy Viera MD PCP - General Family Practice 07/20/19 10/29/20 [address] [place] [address] documented as of this encounter
--- OUTSIDE RECORDS SUMMARY | 2021-11-07 19:38 | XMS_ITS | Encounter Summary ---
:1980 Author Organization [employer] Address [address] [place] [address] Care Team Providers Name Role Phone Sandy Viera MD Primary Care Provider Reason for Visit Reason Comments Future Appointments Encounter Details Date Type Department Care Team Description 09/23/2020 Telephone [facility] Rose Morrow, Fut ure Appointments Medicine ROOFING SUBCONTRACTOR, TEST RIDER [address] [place] [address] [place] [address] [phone] (Wo rk) Social History Tobacco Use Types [...] documented as of this encounter Nursing Notes Katarina Mccann - 09/23/2020 12:05 PM CDT (Frontline/PSC: If caller has no additional questions after reading below message, update note and close encounter) Left message for patient to call back. Frontline[facility] ([facility]), please inform patientof below message. Requested patient reschedule appointment. Offered video visit as more convenient option. Advised to call back. Chasity Hopper CMA - 09/23/2020 11:47 AM CDT Patient missed visit today with INSPECTOR REPAIRER SANDSTONE Odalys 09/23/20. Per provider, please reach out to patient and ask to reschedule. Please ask if she prefers to do a video visit because that has worked better in the past versus an in-office visit due to travel time. documented in this encounter Plan of Treatment Not on filedocumented as of this encounter Visit Diagnoses Not on filedocumented in this encounter Care Teams Associate Account Manager Relationship Specialty Start Date End Date Sandy Viera MD PCP - General Family Practice 07/20/19 10/29/20 [address] [place] [address] documented as of this encounter
--- OUTSIDE RECORDS SUMMARY | 2021-11-07 19:38 | XMS_ITS | Encounter Summary ---
:1980 Author Organization [employer] Address [address] [place] [address] Care Team Providers Name Role Phone Sandy Viera MD Primary Care Provider Reason for Visit Reason Comments Medication Questions Encounter Details Date Type Department Care Team Description 09/10/2020 Telephone [facility] Jhonny Morrow, [facility] ication Questions Medicine MILK TESTER, VIDEO GAME PRODUCER [address] [place] [address] [place] [address] [phone] (Wo rk) Social History Tobacco Use Types [...] documented as of this encounter Nursing Notes Kayleen Vazquez RN - 09/11/2020 9:00 AM CDT Left message to call back [phone]. Second attempt, close at the end of the day. Lubna Boucher RN - 09/10/2020 4:10 PM CDT Left message to call back [phone] Marianela Matrell - 09/10/2020 3:42 PM CDT Medications - Med Change / Question Is this a medication change or a general question? Med Question What is your question or concern? Pt states that she didn't take medications as prescribed and is wondering if she can start over today What is the name and dose of the medication? buPROPion (WELLBUTRIN XL) 150 MG 24 hour release tablet, DULoxetine (CYMBALTA) 20 MG capsule How often do you take it? Take 3 Tablets by mouth daily.-bupropion, Take 1 Capsule by mouth daily.-duloxetine Who prescribed it? JHONNY MORROW If a prescription is needed, patient would [...] or unknown) Please route to: Triage Pool documented in this encounter Plan of Treatment Not on filedocumented as of this encounter Visit Diagnoses Not on filedocumented in this encounter Care Teams Telemarketing Supervisor Relationship Specialty Start Date End Date Sandy Viera MD PCP - General Family Practice 07/20/19 10/29/20 [address] [place] [id number] documented as of this encounter
--- OUTSIDE RECORDS SUMMARY | 2021-11-07 19:38 | XMS_ITS | Encounter Summary ---
:1980 Author Organization [facility] Address [address] [place] [address] Care Team Providers Name Role Phone Sandy Viera MD Primary Care Provider Encounter Details Date Type Department Care Team Description 08/27/2020 Orders Only Initial Department Provider, [place], [facility] THANIA FIORE MD [place], [place] [address] Interface provider [phone] [place] [address] Social History Tobacco Use Types Packs/Day Years [...] Date/Time Associated Diagnosis Comme nts SLEEP STUDY 08/27/2020 Results for thi s procedure are in the resu lts section. documented in this encounter Results SLEEP STUDY (08/27/2020) Narrative This result has an attachment that is no t available. Interface Provider DUMMY/OTHER/AR documented in this encounter Visit Diagnoses Not on filedocumented in this encounter Care Teams Disability Insurance Claim Examiner Relationship Specialty Start Date End Date Sandy Viera MD PCP - General Family Practice 07/20/19 10/29/20 [address] [place] [address] documented as of this encounter
--- OUTSIDE RECORDS SUMMARY | 2021-11-07 19:38 | XMS_ITS | Encounter Summary ---
:1980 Author Organization [employer] Address [address] [place] [address] Care Team Providers Name Role Phone Rose Morrow APRN, NEW Primary Care Provider [phone] Reason for Visit Reason Comments Follow-up Encounter Details Date Type Department Care Team Description 11/19/2020 Telemedicine [facility] Carrie Ascencio , [facility] [address] [place], [place] [id number] Morbid obesity with BMI of 50.0-59.9, ad ult (HRC) (Primary Dx); Surgery & Weight Pamela Mills, PAFabioC [address] [place], [place] [id number] CAMRYN (obstructive sleep apnea); Center Prediabetes; [address] Mixed hyperlipidemia; [address] Hyperinsulinemia; [place], [place] Chronic low back pain, unspecified back pain laterality, unspecified whether sciatica present (HRC); [address] MIKEY (generalized anxiety dis order); [phone] Severe episode of recurrent major depressive disorder, without psychotic features (HRC); Overactive blad keren; Vitamin D defic iency Social History Tobacco Use Types Packs/Day Years [...] Sign Reading Time Taken Comments Blood Pressure - - Pulse - - Temperature - - Respiratory Rate - - Oxygen Saturation - - Inhaled Oxygen Concentration - - Weight 167.4 kg (369 lb) 11/19/2020 11:08 AM CDT pt rep orted Height 170.2 cm (5' 7) 11/19/2020 11:08 AM CDT pt repo rted Body Mass Index 57.79 11/19/2020 11:08 AM CDT documented in this encounter Patient Instructions Patient InstructionsPamela Mills PA-C - 11/19/2020 4:30 PM CDT Low Intensity Exercise: Naveed Licea Every Body Yoga - https://www.Memetales.com/[email or web address] [place] yoga - Https://www.Memetales.com/user/TaraStilesYoga/featured Yoga with Robyn - https://www.Memetales.Hadapt/user/yogawithadriene Fightmaster Yoga - https://www.Memetales.com/user/lesleyfightmaster Exercise With Children: Cosmic Kids Yoga - http://www.Stumpwise.Hadapt/category/watch/ Fit Factor Kids exercise Albina - https://www.[employer].Hadapt/style/kids-yoga documented in this encounter Progress Notes Pamela Mills PA-C - 11/19/2020 4:30 PM CDT Metabolic Health and Weight Management PREOPERATIVE FOLLOW UP Chief Complaint Patient presents with ??? Follow-up SUBJECTIVE: Narinder Lucas is a 40 y.o. female with chronic medical problems including CAMRYN, depression, anxiety, chronic low back pain, overactive bladder, h/o eating disorder, vitamin D deficiency, who was referred/seeks to treat the following obesity-associated medical conditions by aggressive management of weight: CAMRYN, back pain. Hyperlipidemia, prediabetes, hyperinsulinemia Patient continues to undergo evaluation for candidacy for bariatric surgery. Initial consult 04/24/2019 INTERIM HISTORY: Has been changing nutrition the last 3 months, healthier lifestyle, but not losing weight and finds it frustrating. Stress from back pain, caring for autistic son, and not having support from family nearby. Hard to stand to wash dishes or shower due to back pain. Since last dietitian visit - eating overnight oats or egg for breakfast, lunch eating veggies and chicken or tuna (less carbs). Snack - fruit. Supper - veggies and meat No eating past 8 pm Eating out or fast food less often, less than once per week. Seeing therapist for depression weekly. Taking bupropion and cymbalta. Mood is better. Still very concerned that she has not made progress towards bariatric surgery after being in the program since 04/2019 PT evaluation: deferred, as she is in p.t. for back Psych follow up needed: Yes RD follow up needed: Yes Labs completed: Yes recheck vitamin D RUQ US completed: Yes 06/27/19, fatty liver, no stones EGD completed: No not needed CPAP download: Not yet , using CPAP machine more regularly, sleeping better What are you doing for exercise?: Other Physical activity: None due to back pain Took metformin 2017 - caused n/v/d Took naltrexone early 2019 - had GI side effects Patient's weight history is as follows: Bariatric Weight History and Calculations Weight History Age at Onset of Obesity: 28 Preferred Weight: 150 lb Starting Weight: 335 lb Current Weight: 369 lb Height (in): 67 Weight Calculations Excess Weight: 190 lb 8 oz Current Weight Loss: -34 lb Goal Weight: 144 lb 8 oz Starting BMI: 52.4887507302876 Percent Exess Weight Loss: -17.8548675496041 Current BMI: 57.8850228740476 Percent Totoal Body Weight Loss: -10.5557727608930 PAST MEDICAL HISTORY: Past Medical History: Diagnosis Date ??? COVID-19 03/16/2020 ??? Depression (emotion) ??? Overactive bladder ??? Sleep apnea ??? Vitamin D deficiency (HRC) CURRENT PROBLEMS: Patient Active Problem List Diagnosis ??? Vitamin D deficiency (HRC) ??? CAMRYN (obstructive sleep apnea) ??? Overactive bladder ??? Morbid obesity with BMI of 50.0-59.9, adult (HRC) ??? Urinary frequency ??? Urinary urgency ??? Mixed stress and urge urinary incontinence ??? Binge eating disorder ??? MIKEY (generalized anxiety disorder) (HRC) ??? Major depression, recurrent (HRC) ??? Chronic low back pain ??? Mixed hyperlipidemia (HRC) ??? Hyperinsulinemia (HRC) ??? Prediabetes SURGICAL HISTORY: Past Surgical History: Procedure Laterality Date ??? APPENDECTOMY 2016 ??? SECTION 2013 MEDICATIONS: Outpatient Medications Prior to Visit Medication Sig Dispense Refill ??? buPROPion (WELLBUTRIN XL) 150 MG 24 hour release tablet Take 3 Tablets by mouth daily. (Patient not taking: Reported on 11/19/2020) 270 Tablet 1 ??? cephalexin (KEFLEX) 500 MG capsule Take 500 mg by mouth. ??? DULoxetine (CYMBALTA) 20 MG capsule Take 1 Capsule by mouth daily. (Patient not taking: Reportedon 11/19/2020) 90 Capsule 1 ??? Ibuprofen 200 MG capsule Take 600 mg by mouth every 6 hours as needed for Pain. ??? ondansetron (ZOFRAN-ODT) 4 MG disintegrating tablet Take 1 Tablet by mouth as needed for Nausea.20 Tablet 0 ??? tiZANidine (ZANAFLEX) 2 MG tablet Take 0.5-1 Tablets by mouth two times daily as needed (Muscle pain and tension). 30 Tablet 1 ??? triamcinolone acetonide (KENALOG) 0.1 % cream Apply topically two times a day. Indications: Atopic Dermatitis 15 g 1 ??? Vitamin D, Ergocalciferol, 1.25 MG (55735 UT) CAPS TAKE 1 CAPSULE BY MOUTH 1 TIME A WEEK (Patient not taking: Reported on 11/19/2020) 12 Capsule 3 No facility-administered medications prior to visit. ALLERGIES: No Known Allergies FAMILY HISTORY: Family History Problem Relation Age of Onset ??? Hypertension Father ??? Cataract Negative Family History ??? Glaucoma Negative Family History ??? Retinal Detachment Negative Family History ??? Blindness Negative Family History SOCIAL HISTORY: Social History Tobacco Use ??? Smoking status: Never Smoker ??? Smokeless tobacco: Never Used Substance Use Topics ??? Alcohol use: Never OBJECTIVE: Ht 5' 7 (170.2 cm) Comment: pt reported Wt (!) 369 lb (955750 g) Comment: pt reported BMI 57.79kg/m?? General: NAD Respiratory: No distress is noted Skin: visible Intact Neuropsych: Patient is alert and oriented. Exhibits appropriate affect, but tearful at one point in the conversation IMPRESSION/PLAN: ICD-10-CM 1. Morbid obesity with BMI of 50.0-59.9, adult ([facility]) E66.01 Z68.43 2. CAMRYN (obstructive sleep apnea) G47.33 3. Prediabetes R73.03 4. Mixed hyperlipidemia ([facility]) E78.2 5. Hyperinsulinemia ([facility]) E16.1 6. Chronic low back pain, unspecified back pain laterality, unspecified whether sciatica present ([facility]) M54.50 G89.29 7. MIKEY (generalized anxiety disorder) ([facility]) F41.1 8. Severe episode of recurrent major depressive disorder, without psychotic features ([facility]) F33.2 9. Overactive bladder N32.81 10. Vitamin D deficiency ([facility]) E55.9 Obesity-associated comorbid conditions listed above are likely to improve with weight loss and dietary changes. The patient remains an appropriate candidate for surgery from a medical standpoint. The patient willcontinue in the evaluation process for surgery. Further tasks needed before surgery includes the following: - follow up with dietitian -follow up with psychology -continue individual therapy Needs CPAP download Needs bariatric physical therapy eval The patient was given an opportunity to ask further questions regarding the upcoming surgery. Spent 90 minutes listening to Patient talk about her concerns and counseling Patient on the rationale behind why she has not yet been approved for surgery. Explained that it is a teamapproach to assessment and each discipline must be in agreement on her appropriateness for surgery. This is to minimize risk of complications from the procedure and to ensure maximum success from the surgery. Patient did express anger and frustration at different points in the conversation, but ultimately she seemed to understand the explanation and is willing to trust the process going forward. She was congratulated on the progress she has made in the past 3 months. Encouraged her to keep going with this momentum. She needs to demonstrate sustainable change. We will try topiramate to help with preop weight loss. She will follow up with me in 4-6 weeks. Pamela Mills PA-C documented in this encounter Nursing Notes Nanette Cee RN - 11/19/2020 4:30 PM CDT Standard rooming via telephone with follow up SmartForm completed. Last seen on 06/24/2020 with no recorded weight. Last recorded weight of 351.4 lbs on 08/19/2020. Weight History: Bariatric Weight History and Calculations Weight History Age at Onset of Obesity: 28 Preferred Weight: 150 lb Starting Weight: 335 lb Height (in): 67 Weight Calculations Excess Weight: 190 lb 8 oz Goal Weight: 144 lb 8 oz Starting BMI: 52.9858198150451 Measurements Do you have a scale? YES - 369 lb. Do you have a BP cuff? NO Eating patterns Medications: Compliance: YES Side effects: NO Would like to discuss: What are they going to do to help me lose weight? Otherwise, they need to stop calling me. There is no change. My weight keeps going up. I don't know why I can't have a surgery Nanette Law RN 10:31 AM 11/19/2020 documented in this encounter Plan of Treatment Not on filedocumented as of this encounter Results (ABNORMAL) Vitamin D 25-Hydroxy, Total (11/25/2020 5:05 PM CDT) P athologist Signature Vitamin D, 16 (L) 30 - 80 11/25/2020 [facility] 25-OH, Total ng/mL 10:25 PM CDT LABORATORY Specimen Anatomical Collection Method / Collection Time Recei adama Time (Source) Location / Volume Laterality Blood Venipuncture / 11/25/2020 5:05 11/25/2020 5:05 Unknown PM CDT PM CDT Narrative [facility] - 11/25/2020 10:25 PM CDT Expected values Deficiency: <20 ng/mL Insufficiency: 20-29 ng/mL Optimum: 30-80 ng/mL Possible toxicity: >80 ng/mL Pamela Mills PA-C LAB_1 Performing Organization Address City/State/ZIP Code Phon e Number [facility] [address] [place] [address] documented in this encounter Visit Diagnoses Diagnosis Morbid obesity with BMI of 50.0-59.9, ad ult (HRC) - Primary CAMRYN (obstructive sleep apnea) Obstructive sleep apnea (adult) (pediatr ic) Prediabetes Other abnormal glucose Mixed hyperlipidemia (HRC) Mixed hyperlipidemia Hyperinsulinemia (HRC) Other specified hypoglycemia Chronic low back pain, unspecified back pain laterality, unspecified whether sciatica present MIKEY (generalized anxiety disorder) (HRC) Generalized anxiety disorder Severe episode of recurrent major depres sive disorder, without psychotic features (HRC) Overactive bladder Hypertonicity of bladder Vitamin D deficiency (HRC) Unspecified vitamin D deficiency documented in this encounter Care Teams Hogshead Builder Relationship Specialty Start Date End Date Rose Morrow, CARGO SUPERVISOR, CRYPTOLOGIST PCP - General Nurse Practitioner 10/30/20 [address] [address] [place] [address] documented as of this encounter
--- OUTSIDE RECORDS SUMMARY | 2021-11-07 19:38 | XMS_ITS | Encounter Summary ---
:1980 Author Organization [facility] Address [address] [place] [address] Care Team Providers Name Role Phone Sandy Viera MD Primary Care Provider Encounter Details Date Type Department Care Team Description 10/20/2020 Lab Visit [facility] OAB (o veractive bladder) Laboratory [address] [place] [address] Social History Tobacco Use [...] encounter Progress Notes Stephanie Patel MD - 10/20/2020 6:50 PM CDT Urine culture was contaminated. UA looked good. Okay to proceed with Botox. documented in this encounter Plan of Treatment Not on filedocumented as of this encounter Procedures Procedure Name Priority Date/Time Associated Diagnosis Comme nts URINE CULTURE Routine 10/20/2020 6:55 PM OAB (overactive Resul ts for this CDT bladder) procedure are i n the results section . UA MICRO IF Routine 10/20/2020 6:55 PM OAB (overactive Result s for this CDT bladder) procedure are i n the results section . documented in this encounter Results (ABNORMAL) Urine Culture (10/20/2020 6:55 PM CDT) [facility] Method Time Signature Urine Culture Growth (A) 10/21/2020 [facility] 8:15 PM CDT HOSPITAL Urine Culture 50,000 - 10/21/2020 [facility] 100,000 CFU/mL 8:15 PM CDT HOSPITAL Multiple Bacterial Morphotypes Specimen Anatomical Collection Method Collection Time Receive d Time (Source) Location / / Volume Laterality Urine URINE SPECIMEN Non-blood 10/20/2020 6:55 PM 021 6:55 COLLECTION, CLEAN Collection / CDT PM CDT CATCH / Unknown Unknown Stephanie Patel MD LAB_1 Performing Organization Address City/State/[facility] [place] [address] UA (Micro if positive) - Lab collect (10/20/2020 6:55 PM CDT) [facility] Method Time Signature Urine Color Straw Straw-Yellow 10/20/2020 [facility] 7:00 PM CDT LABORATORY Urine Clarity Clear Clear 10/20/2020 [facility] 7:00 PM CDT LABORATORY Specific 1.025 1.005 - 10/20/2020 [facility] [place], 1.030 7:00 PM CDT LABORATORY Urine PH Urine 6.0 5.0 - 8.0 10/20/2020 [facility] 7:00 PM CDT LABORATORY Protein, Negative Neg/Trace 10/20/2020 [facility] Urine Qual 7:00 PM CDT LABORATORY (mg/dL) Glucose Urine Negative Negative 10/20/2020 [facility] Qual (mg/dL) 7:00 PM CDT LABORATORY Ketones, Negative Negative 10/20/2020 [facility] Urine (mg/dL) 7:00 PM CDT LABORATORY Urobilinogen, 0.2 <2.0 10/20/2020 [facility] Urine (EU/dL) 7:00 PM CDT LABORATORY Bilirubin Negative Negative 10/20/2020 [facility] Urine 7:00 PM CDT LABORATORY Blood, Urine Negative Neg/Trace 10/20/2020 [facility] 7:00 PM CDT LABORATORY Nitrite Urine Negative Negative 10/20/2020 [facility] 7:00 PM CDT LABORATORY Leukocyte Negative Negative 10/20/2020 [facility] Est. 7:00 PM CDT LABORATORY Urine Source Clean Catch 10/20/2020 [facility] 7:00 PM CDT LABORATORY Specimen Anatomical Collection Method Collection Time Receive d Time (Source) Location / / Volume Laterality Urine URINE SPECIMEN Non-blood 10/20/2020 6:55 PM 021 6:55 COLLECTION, CLEAN Collection / CDT PM CDT CATCH / Unknown Unknown Stephanie Patel MD LAB_1 Performing Organization Address City/State/ZIP Code Phon e Number [facility] [address] [place] [address] documented in this encounter Visit Diagnoses Diagnosis OAB (overactive bladder) Hypertonicity of bladder documented in this encounter Care Teams School Nurse Relationship Specialty Start Date End Date Sandy Viera MD PCP - General Family Practice 07/20/19 10/29/[address] [place] [address] documented as of this encounter
--- OUTSIDE RECORDS SUMMARY | 2021-11-07 19:38 | XMS_ITS | Encounter Summary ---
:1980 Author Organization [facility] Address [address] [place] [address] Care Team Providers Name Role Phone Jhonny Morrow APRN, CNP Primary Care Provider [phone] Reason for Visit Reason Comments Refill Vitamin D, Ergocalciferol, 1 .25 MG (17417 UT) CAPS [Pharmacy Med Name: VITAMIN D2 50,000IU (ERGO) CAP RX] Encounter Details Date Type Department Care Team Description 11/18/2020 Refill [facility] Jhonny Morrow, Ref ill (Vitamin D, Medicine [place] Ergocalciferol, 1.[address] ([address] UT) [place] [address] [place] [address] [Pharmacy Med Name: [phone] (Wo rk) VITAMIN D2 50,000IU (ERGO) CA P RX]) Social History Tobacco Use Types Packs/Day Years [...] documented as of this encounter Nursing Notes Interface, Out Surescripts Prov Query - 11/18/2020 2:08 PM CDT Vitamin D, Ergocalciferol, 1.25 MG (34402 UT) CAPS [Pharmacy Med Name: VITAMIN D2 50,000IU (ERGO) CAP RX] Medication started: 01/09/2019 Last ordered by JHONNY MORROW: 08/19/2020 (91 days ago) QTY: 12, Refills: 1, Sig: take 1 capsule by mouth once a week. (changed but equivalent) -> Medication cannot be delegated. Last qualifying visit: 2020 (with JHONNY MORROW) Next scheduled visit: 11/27/2020 (with JHONNY MORROW) Powered by [employer] by [employer], Reference: [id number], 11/18/2020 2:07:59 PM CDT, Pool:CHUY XIONG REFILL ([id number]) ING LATHE OPERATOR documented in this encounter Plan of Treatment Not on filedocumented as of this encounter Visit Diagnoses Not on filedocumented in this encounter Care Teams Construction Technology Instructor Relationship Specialty Start Date End Date Jhonny Morrow, ORDER PACKER OR PACKAGER, PSYCHIATRIC RN PCP - General Nurse Practitioner 10/30/[address] [place], [place] [address] documented as of this encounter
--- OUTSIDE RECORDS SUMMARY | 2021-11-07 19:38 | XMS_ITS | Encounter Summary ---
:1980 Author Organization [employer] Address [address] [place] [address] Care Team Providers Name Role Phone Sandy Viera MD Primary Care Provider Reason for Visit Reason Comments CHRONIC PAIN Therapies (Routine) - Closed Specialty Diagnoses / Procedures Referred By Contact Refer red To Contact Diagnoses Chronic bilateral low back pain without sciatica Myofascial pain Chronic pain of both knees Sedentary lifestyle Sleep deficient Severe episode of recurrent major depressive disorder, without psychotic features (HRC) [place] [address] [place] [id number] Referral ID Status Reason Start Date Expiration Date Visits Requ ested Visits Authorized [id number] Closed 06/09/2020 06/09/2021 1 1 Encounter Details Date Type Department Care Team Description 10/06/2020 Office Visit [facility] Jessica Camilo A, Chronic low back Center - Lifestyle OTR/L pain, unspecified Renewal [address] [facility] back pain laterality, [address] [place] [address] [place], [place] sciatica present [phone] (Primary Dx) [phone] (Wo rk) Social History Tobacco Use Types [...] of this encounter Progress Notes Jessica Camilo Crispin, OTR/L - 10/06/2020 3:00 PM CDT [facility] Occupational Therapy Lifestyle Renewal Program Progress Note Visit Number: 3 Initial Certification Period: 08/28/20 to 12/01/20 Referring Provider: Pedrito Braun MD Visit Diagnosis: chronic pain Precautions: depression, Orders: Evaluation and treat. Onset/Referral Date: Referral date 06/09/20 SUBJECTIVE: Client reports pain has been worse over the last couple of weeks and she has had a harder time walking for more than a few minutes at a time. Has been trying to do what she can from therapy program butreports depression and poor memory are barriers to being consistent. OBJECTIVE Current Objective Findings: Pleasant, engaged, increased understanding of pain hygiene strategies following session and ways to support carryover including use of visual checklist/schedule, noted benefit from gentle stretches and supported positioning Treatment/Education Today: Self Care/Home management trainin minutes: Continued client education on chronic pain symptom management and lifestyle changes that allow for improved control of pain and to support emotional wellbeing including: engaging in healthy sleep habits, prioritizing self-care, role of regular exercise and movement (continued encouraging low impact walking program, being more consistent with PT exercises, gentle stretches, getting up during the day at least 1x/hour), in managing pain, use of activity pacing and ADL modification strategies (education on boom/bust cycle and impact on pain, [...] 3x/day when alarm for medication goes off). Provided therapeutic listening and encouragement as client reports pain flare up in the last couple of weeks and continued to emphasize a proactive, multi-faceted, and alf approach to pain management. Additionally facilitated client creation of a daily/weekly wellness checklist as a visual reminder to support carryover of therapy program. Strategies included on wellness checklist include: exercises/movement, pacing (identify 1-2 chores a day and break up throughout day, use of heat and pillow behind back during breaks), wind down strategies before bed, and soft belly breathing. Additionally provided client with resources for heating pad and kitchen stool and continued education on ADL modifications including looking into option of shower chair and removable shower head for improved ease, comfort, and independence with showering. Client receptive to education and reported motivation to incorporate healthy lifestyle habits into daily routine to improve symptom management and increase overall wellbeing. With maximum therapist facilitation client was able to problem solve barriers to creating lifestyle changes and come up with a plan to address barriers. Therapeutic Exercise: 10 minutes: Reviewed the following therapeutic exercises with client for improved mobility and pain management and to support improved carryover: Access Code: [email or web address]: [email or web address]: 09/22/2020repared by: Jessica Woods Chair Yoga Seated Cat-Cow - 1 x daily - 7 x weekly - 5-8 reps Seated Child's Pose with Table - 1 x daily - 7 x weekly - 2-3 reps Timed Code Treatment Minutes: 49 Total Treatment Minutes: 49 Current Home Exercise Program List: Pain hygiene strategies Diaphragm breathing 3x/day paired with alarm for medications Gentle stretches: seated cat/cow, seated child's pose with table Heating pad, positioning supports for comfort Wellness checklist to support carryover ADL/IADL modifications ASSESSMENT/PROGRESS TOWARD GOALS: Client demonstrated improved body awareness, more relaxed posture, and reduced muscle tension following session as well as improved understanding of pain hygiene strategies to improve pain management and daily function. Client reports increased pain over the last few weeks and difficulty with carryingover therapy strategies into daily routine due to depression and poor memory. Client will continue to benefit from repetition and reinforcement from OT to support implementation of home program on a more consistent basis due to barriers including mental health and difficulty with recall. Client continues to demonstrate sensory and nervous system sensitivity, muscle guarding and tension, decreased coping skills, decreased activity tolerance and engagement, and poor posture and body awareness and willbenefit from ongoing OT services to improve pain management and coping skills for participation and satisfaction in ADLs/IADLs. Functional Goals/Outcomes: intermediate school teacher goals to be completed within 12 weeks [...] education, continue gentle stretches and therapeutic yoga, follow up on wellness checklist documented in this encounter Plan of Treatment Scheduled Referrals Name Type Priority Associated Diagnoses Order [facility] Occupational Therapy Referral Routine Chronic bilateral lo w back Ordered: 06/09/2020 pain without sci atica Myofascial pain Chronic pain of both knees Sedentary lifest yle Sleep deficient Severe episode of recurrent major depressive disorder, without psychotic features (HRC) documented as of this encounter Visit Diagnoses Diagnosis Chronic low back pain, unspecified back pain laterality, unspecified whether sciatica present - Primary documented in this encounter Care Teams Infant Room Teacher Relationship Specialty Start Date End Date Sandy Viera MD PCP - General Family Practice 07/20/19 10/29/20 [address] [place] [address] documented as of this encounter
--- OUTSIDE RECORDS SUMMARY | 2021-11-07 19:38 | XMS_ITS | Encounter Summary ---
:1980 Author Organization [facility] Address [address] [place] [address] Care Team Providers Name Role Phone Rose Morrow APRN, CNP Primary Care Provider [phone] Reason for Visit Reason Onset Date Comments Video Visit 11/27/2020 Encounter Details Date Type Department Care Team Description 11/27/2020 Telemedicine [facility] Rose Morrow Sev ere episode of recurrent major depressive disorder, without psychotic features (HRC) (Primary Dx); Medicine [place] MIKEY (generalized anxiety disorder); [address] [address] [facility] Morbid obesity with BMI of 50.0-59.9, ad ult (HRC) [place] [address] [place], [place] [phone] (Wo rk) Social History Tobacco Use Types [...] Progress Notes Rose Morrow APRN, CNP - 11/27/2020 11:40 AM CDT Subjective: Today's visit with Narinder was conducted as a scheduled video visit. She is following up on several issues. Depression: At patient's last visit on 10/30, she was slowly titrating back onto her Wellbutrin afterdiscontinuing it from July through October when she ran out/couldn't find her bottle. She was up to 450mg daily, but then stopped taking her antidepressant when she was put on Bactrim for treatment of UTI in late October. She was worried that it was not safe to mix the two. She had not started herCymbalta either. She feels severely depressed, but denies SI. She tried making a Psychiatry appt, but was told to call back in 2 months. She knows what she should be doing, but struggles with making that happen. This is especially truewith eating. She often eats fast food even if she has a fridge of healthy food at home. She has trouble controlling these urges. She met with Medical Weight Management last week and a prescription of Topamax was given. Patient has not started it yet. She is concerned about possible side effects. She would like Bariatric surgery as she thinks it would help her physical pain and mental health quite a bit to lose weight. She has just signed up for Profile by [facility] and is hopeful that it will help her as well. Objective: There were no vitals taken for this visit. General: WDWN female in NAD Psych: Appropriate mood and affect Assessment/Plan: Severe episode of recurrent major depressive disorder, without psychotic features (HRC)/MIKEY (generalized anxiety disorder) (HRC) - I emphasized the importance of continuous and regular use of her antidepressants. I explained thatdepression likely won't improve until she can take these medications reliably. - Restart Wellbutrin. Titration schedule given. - Initiate Cymbalta 20mg at HS - Continue counseling - Recheck in 4-6 weeks. I will reach out to MH department and see if she can be seen in Psychiatry any sooner. Morbid obesity with BMI of 50.0-59.9, adult (HRC) - Advised that patient start her Topamax and explained how this helps with eating behaviors/cravings. Since she will be restarting her Wellbutrin and Cymbalta this week, suggested that she wait 2 weeksbefore starting her Topamax. - Continue Profile by [facility] - Suggested that she talk with her counselor about eating behaviors. - Recheck in 4-6 weeks. Clinician located at home. Patient located at home Billing based on: Complexity Rose Morrow APRN, CNP documented in this encounter Plan of Treatment Not on filedocumented as of this encounter Visit Diagnoses Diagnosis Severe episode of recurrent major depres sive disorder, without psychotic features (HRC) - Primary MIKEY (generalized anxiety disorder) (HRC) Generalized anxiety disorder Morbid obesity with BMI of 50.0-59.9, ad ult (HRC) documented in this encounter Care Teams Nurse Companion Relationship Specialty Start Date End Date Rose Morrow APRN, CNP PCP - General Nurse Practitioner 10/30/20 [address] [place] [address] documented as of this encounter
--- OUTSIDE RECORDS SUMMARY | 2021-11-07 19:39 | XMS_ITS | Encounter Summary ---
:1980 Author Organization [employer] Address [address] [place] [address] Care Team Providers Name Role Phone Sandy Viera MD Primary Care Provider Reason for Visit Reason Comments Follow-up back Encounter Details Date Type Department Care Team Description 07/15/2020 Office Visit Pedrito Villalobos, Chronic bi lateral low back pain without sciatica (Primary Dx); Rehabilitative Medic ine DO Myofascial pain; [address] [address] [place] Sedentary lifestyle; [place] [address] [place], [place] Sleep deficient; [phone] Chronic pain of both knees; [phone] Severe episode of recurrent major depressive disorder, without psychotic features (HRC); (Work) Morbid obesity with BMI of 50.0-59.9, ad ult (HRC) Social History Tobacco Use Types Packs/Day Years [...] on file documented as of this encounter Patient Instructions Patient InstructionsPedrito Braun, - 07/15/2020 11:20 AM CDT Patient returns to clinic for follow-up. Since last being seen the trigger point injections have provided a great deal benefit. She is noting much less pain in the low back. She does however note pain on the medial aspect of both knees. 1. Patient does visits with the Lifestyle renewal scheduled to start next week. Discussed that I do think this would be very important part treatment. I do think developing a regular routine stress management and activity will be helpful in managing her symptoms. 2. Continue tizanidine as needed. 3. For her knees are recommend Tylenol 1000 mg 3 times per day. If symptoms remain we could consideradditional imaging and potentially injection. 4. Follow-up in 2 months. Patient can contact the clinic if repeat trigger point injections are needed documented in this encounter Progress Notes Pedrito Braun DO - 07/15/2020 11:20 AM CDT PHYSICAL MEDICINE AND REHABILITATION Follow up Chief Complaint: Chief Complaint Patient presents with ??? Follow-up back History of Present Illness: Narinder Lucas is a 39 y.o. female who presents for evaluation of bilateral low back pain. Past medical history significant for binge eating disorder, vitamin-D deficiency, anxiety, depression, chronic low back pain, obstructive sleep apnea, morbid obesity. Patient reports a multiple year history of chronic low back pain. She reports she has been dealing with this even prior to her significant weight gain. She has had prior imaging including an MRI. She reports going through physical therapy previously however did not find that to be significantly helpful. She reports finding it challenging to perform the exercises regularly. Her symptoms have continued to progress in become more severe.She notes that she is fairly disabled by her symptoms at this point. She has difficulty performing activities in her own home such as cleaning or doing dishes. Unable to tolerate walking much of a distance at all. Patient also has significant challenges with depression. This leads to limited activity, missing appointments and disrupted sleep. She reports that also the back pain seems making her depression worse by limiting activity. Interval update 06/09/2020, limited progress with initial treatment. She may have found some benefitfrom tizanidine. Has participated additional physical therapy with limited relief. Interval update 07/15/2020: Good relief from trigger point injections, significant reduction in low back pain. She does have visits with occupational medicine scheduled to begin next week. Only taking tizanidine as needed. Pain today 1/10, intermittent dull/aching sharp/stabbing, getting better. Aggravated standing, walking, bending. Alleviated by resting, medications. Denies weakness in either lower extremity. Medications: Recently started Cymbalta by her primary to help with pain Bupropion for depression Tizanidine may be providing some benefit potentially helping with sleep. Past Medical History: Past Medical History: Diagnosis Date ??? COVID-19 03/16/2020 ??? Depression (emotion) ([facility]) ??? Overactive bladder ??? Sleep apnea ??? Vitamin D deficiency Medications: The patient has a current medication list which includes the following prescription(s):bupropion, duloxetine, ibuprofen, ondansetron, tizanidine, and vitamin d (ergocalciferol). Allergies: Patient has no known allergies. Physical Examination: General: Well-developed, well-nourished individual in no acute distress. Eyes: No scleral injection noted Psych: Calm, pleasant affect. Pulmonary: Non-labored breathing. Gait/Gross motor: Shortened stride, slowed laura. Knees: Tender palpation medial and medial proximal gastrocnemius on the right side Lumbar Spine: ROM: Tender palpation in lower lumbar paraspinals bilaterally. Data: I personally reviewed images and showed the patient the MRI L-spine 05/15/2020 with findings as per the complete report. MRI L-spine 05/15/2020 IMPRESSION: 1. Mild degenerative changes as detailed above. 2. No evidence for focal nerve root impingement, subluxation, stress reaction or vertebral body compression fracture. Assessment: ICD-10-CM 1. Chronic bilateral low back pain without sciatica M54.5 G89.29 2. Myofascial pain M79.18 3. Sedentary lifestyle Z91.89 4. Sleep deficient Z72.820 5. Chronic pain of both knees M25.561 M25.562 G89.29 6. Severe episode of recurrent major depressive disorder, without psychotic features ([facility]) F33.2 7. Morbid obesity with BMI of 50.0-59.9, adult ([facility]) E66.01 Z68.43 Recommendations: Patient returns to clinic for follow-up. Since last being seen the trigger point injections have provided a great deal benefit. She is noting much less pain in the low back. She does however note pain on the medial aspect of both knees. 1. Patient does visits with the Lifestyle renewal scheduled to start next week. Discussed that I do think this would be very important part treatment. I do think developing a regular routine stress management and activity will be helpful in managing her symptoms. 2. Continue tizanidine as needed. 3. For her knees are recommend Tylenol 1000 mg 3 times per day. If symptoms remain we could consideradditional imaging and potentially injection. 4. Follow-up in 2 months. Patient can contact the clinic if repeat trigger point injections are needed Patient Education: The diagnosis, anatomy, basic pathophysiology, and management plan of the disorder were discussed with the patient. This note was created using voice recognition software and may contain typographical errors. Pedrito Braun DO Physical Medicine and Rehabilitation documented in this encounter Plan of Treatment Not on filedocumented as of this encounter Visit Diagnoses Diagnosis Chronic bilateral low back pain without sciatica - Primary Myofascial pain Mylagia and myositis, unspecified Sedentary lifestyle Other specified personal history present ing hazards to health Sleep deficient Problems related to lack of adequate sle ep Chronic pain of both knees Severe episode of recurrent major depres sive disorder, without psychotic features (HRC) Morbid obesity with BMI of 50.0-59.9, ad ult (HRC) documented in this encounter Care Teams It Network Engineer Relationship Specialty Start Date End Date Sandy Viera MD PCP - General Family Practice 07/20/19 10/29/20 [address] [place] [address] documented as of this encounter
--- OUTSIDE RECORDS SUMMARY | 2021-11-07 19:39 | XMS_ITS | Encounter Summary ---
:1980 Author Organization [facility] Address [address] [place] [address] Care Team Providers Name Role Phone Sandy Viera MD Primary Care Provider Reason for Visit Reason Comments MRI Results Encounter Details Date Type Department Care Team Description 05/16/[address] [facility] [address] Dede Braun DO MRI Results Rehabilitative Medic ine [address] [address] [place] [address] [place] [address] [phone] Social History Tobacco Use Types Packs/Day Years [...] documented as of this encounter Nursing Notes Michell Cameron RN - 05/16/2020 8:52 AM CDT Updated patient with MRI findings. No questions or concerns at this time. Transferred to PMR scheduling. Pedrito Braun DO - 05/16/2020 7:58 AM CDT Reviewed results of the lumbar MRI. It did not note any significant nerve compression which is reassuring. There is some age-related change in the facet joints. This could potentially be an area to target with injections in the future if we are not having success with our current treatment plan. Overall MRI looks reassuring documented in this encounter Plan of Treatment Not on filedocumented as of this encounter Visit Diagnoses Not on filedocumented in this encounter Care Teams Bed Manager Relationship Specialty Start Date End Date Sandy Viera MD PCP - General Family Practice 07/20/19 10/29/20 [address] [place] [address] documented as of this encounter
--- OUTSIDE RECORDS SUMMARY | 2021-11-07 19:39 | XMS_ITS | Encounter Summary ---
:1980 Author Organization [facility] Address [address] [place] [address] Care Team Providers Name Role Phone Sandy Viera MD Primary Care Provider Reason for Visit Reason Comments Spine Lumbar Encounter Details Date Type Department Care Team Description [facility] [facility]uchamp, Chronic bilateral low - Physical Therapy PT back pain, unspecified [address] [place] [address] [place] [address] present (Primary Dx) [phone] (Wo rk) Social History Tobacco Use Types [...] documented as of this encounter Progress Notes Pamela Beauchamp, PT - 05/19/2020 2:30 PM CDT [facility] Physical Therapy Progress Note Visit Number: 11 Initial Certification Period: 11/13/2019 to 02/11/20 Re-certification Period: 03/03/2020 to 06/01/2020 Referring Provider: Sandy Viera Visit Diagnosis: 1. Chronic bilateral low back pain, unspecified whether sciatica present (HRC) Precautions: morbid obesity MRI of lumbar spine: IMPRESSION: 1. Mild degenerative changes as detailed above. 2. No evidence for focal nerve root impingement, subluxation, stress reaction or vertebral body compression fracture. SUBJECTIVE: Patient states she started muscle relaxer yesterday which has seemed to help. Underwent an MRI of low back and is following up with PM&R in a couple weeks. She fell a couple weeks ago which flared up her knee symptoms which she wishes to address today. OBJECTIVE Current Objective Findings: Ambulation: increased spinal lordosis, Trendelenberg Significant weakness noted in core & LE musculature Tenderness to palpation: left patellar tendon Treatment/Education Today: Therapeutic Exercise x 30 minutes: -standing gastroc stretch, 2 x 30 sec hold, added to HEP -posterior pelvic tilt in hooklying x 30 reps, requires extensive verbal and tactile cues for propertechnique, added to HEP -supine quad set x 30 reps, requires extensive verbal and tactile cues for proper technique, added to HEP Therapeutic activity x 10 minutes: -instructed to watch How to do Pelvic Tilt Exercise on YouTube -verbally reviewed imaging results -discussed possibility of future injections for lumbar spine Timed Code Treatment Minutes:40 Total Treatment Minutes: 40 Current Home Exercise Program List: Access Code: [email or web address] Gastroc Stretch on Wall - 2-3 x daily - 2 reps - 30 sec hold Supine Quad Set - 2 x daily - 1 sets - 30 reps - 5 sec hold Supine Posterior Pelvic Tilt - 2 x daily - 1 sets - 30 reps - 5 sec hold ASSESSMENT/PROGRESS TOWARD GOALS: Initiated gentle stretching and strengthening to assist with flare-up in patient's knee symptoms. Instructed in posterior pelvic tilts and given instructional handouts and resources. Will continue to benefit from skilled PT for core stabilization progressions. Functional Goals/Outcomes: HEP/Independent Management: Demonstrate independence with HEP and self- management following each treatment session ONGOING ADL's: Perform home management tasks with ease in 8-12 weeks. ONGOING Stand for at least 5 minutes without increased symptoms in 2-4 weeks. ONGOING Stand for at least 10 minutes without increased symptoms in 4-6 weeks. ONGOING Ambulation: Ambulate for 15 minutes without increased symptoms in 8 weeks. ONGOING PLAN: Core stabilization. documented in this encounter Plan of Treatment Not on filedocumented as of this encounter Visit Diagnoses Diagnosis Chronic bilateral low back pain, unspeci fied whether sciatica present - Primary documented in this encounter Care Teams Supervisor Metal Placing Relationship Specialty Start Date End Date Sandy Viera MD PCP - General Family Practice 07/20/19 10/29/20 [address] [place] [address] documented as of this encounter
--- OUTSIDE RECORDS SUMMARY | 2021-11-07 19:39 | XMS_ITS | Encounter Summary ---
:1980 Author Organization [employer] Address [address] [facility] [place] [address] Care Team Providers Name Role Phone Sandy Viera MD Primary Care Provider Reason for Visit Reason Comments Spine Lumbar Encounter Details Date Type Department Care Team Description 06/02/2020 Therapy [facility] Pamela Beauchamp, Chronic bilateral low back pain, unspecified whether sciatica present (Primary Dx); - Physical Therapy PT Pain in both [place], [place] [address] [address] [place] [address] [place], [place] [id number] (Wo rk) Social History Tobacco Use Types [...] encounter Progress Notes Pamela Beauchamp, PT - 06/02/2020 3:15 PM CDT Physical Therapy Re-certification of Plan of Care Re-certification Period: 06/02/2020 to 09/01/2020 Treatment diagnosis: chronic bilateral low back pain, bilateral knee pain Total visits in past certification period: 11 Updated status: See daily note below Current elizondo objective findings: See daily note below ASSESSMENT/PROGRESS TOWARD GOALS: Progress toward goals/functional outcomes: See daily note below Updated goals/functional outcomes for re-certification period: See daily note below PLAN: Frequency/duration: 6-8 visits as needed over 90 days Treatment Plan: Progress strengthening for core, LE's within tolerance. Continue to provide education about pain science, movement, stress and pain management. Recommend follow-up with PM&R for further pain management strategies. Prognosis complicated by patient's mental health which affects her compliance with HEP. Consent: Patient and/or family are in agreement with the updated plan. The bench assembler is completed by the therapist and the referring clinician's electronic signature certifies medical necessity for the plan above. [facility] Physical Therapy Progress Note Visit Number: 12 Initial Certification Period: 11/13/2019 to 02/11/20 Re-certification Period: 03/03/2020 to 06/01/2020 Referring Provider: Sandy Viera Visit Diagnosis: 1. Chronic bilateral low back pain, unspecified whether sciatica present (HR) Precautions: morbid obesity MRI of lumbar spine: IMPRESSION: 1. Mild degenerative changes as detailed above. 2. No evidence for focal nerve root impingement, subluxation, stress reaction or vertebral body compression fracture. SUBJECTIVE: Patient states low back is feeling better which she feels is due to the zanaflex medication. Reportsknee pain is most limiting at this time especially with walking. Also states left shoulder is sore when reaching overhead since receiving her COVID vaccine. Admits to mental health still significantly a ffecting her motivation to perform exercises at home. OBJECTIVE Current Objective Findings: Ambulation: increased spinal lordosis, Trendelenberg Significant weakness noted in core & LE musculature Tenderness to palpation: left patellar tendon Treatment/Education Today: Therapeutic Exercise x 15 minutes: -seated long arc quad x 10 reps each leg, added to HEP -supine/seated heel slides for knee ROM and hamstring strength, added to HEP -supine quad set x 30 reps, verbally reviewed for HEP -shoulder flexion supine, added to HEP -shoulder abduction PROM at wall, added to HEP Neuromuscular Re-education x 10 minutes: Pain science education including the following concepts: -discussed how the brain can only focus on one body part at a time with pain which explains why her knees are hurting her more since her low back is feeling better -discussed how the body responds in emergency situations, if she needed to run she would be able to Manual therapy x 10 minutes: -kinesiotape to bilateral patella and instructed on where to buy tape and how to self-apply tape at home if she found this beneficial. Could also consider OTC knee brace for left knee if tape is beneficial. Timed Code Treatment Minutes:35 Total Treatment Minutes: 35 Current Home Exercise Program List: Access Code: [email or web address] Gastroc Stretch on Wall - 2-3 x daily - 2 reps - 30 sec hold Supine Quad Set - 2 x daily - 1 sets - 30 reps - 5 sec hold Supine Posterior Pelvic Tilt - 2 x daily - 1 sets - 30 reps - 5 sec hold Seated Long Arc Quad - 1-2 x daily - 10 reps - 3 sets - 5 sec hold Supine Heel Slide - 1-2 x daily - 10 reps - 3 sets - 5 sec hold Supine Shoulder Overhead Flexion with Medicine Ball - 1-2 x daily - 10 reps - 3 sets - 5 sec hold Standing Shoulder Abduction Slides at Wall - 1-2 x daily - 10 reps - 3 sets - 5 sec hold ASSESSMENT/PROGRESS TOWARD GOALS: Continues to demonstrate limited compliance with home exercises, making progress with strengthening difficult, therefore tried kinesiotape to help with knee pain today and upon leaving clinic, patient was stating this felt beneficial. Encouraged patient to follow-up with PM&R next week for furtherpain management strategies. Functional Goals/Outcomes: HEP/Independent Management: Demonstrate independence with HEP and self- management following each treatment session NOT MET ADL's: Perform home management tasks with ease in 8-12 weeks. ONGOING Stand for at least 5 minutes without increased symptoms in 2-4 weeks. ONGOING (unable to weatherization administrator shower due to back pain) Stand for at least 10 minutes without increased symptoms in 4-6 weeks. ONGOING (limited more now by knees) Ambulation: Ambulate for 15 minutes without increased symptoms in 8 weeks. ONGOING (limited more nowby knees) PLAN: Follow-up with PM&R. documented in this encounter Plan of Treatment Not on filedocumented as of this encounter Visit Diagnoses Diagnosis Chronic bilateral low back pain, unspeci fied whether sciatica present - Primary Pain in both knees, unspecified chronici ty documented in this encounter Care Teams Stenotypist Relationship Specialty Start Date End Date Sandy Viera MD PCP - General Family Practice 07/20/19 10/29/20 [address] [place] [address] documented as of this encounter
--- OUTSIDE RECORDS SUMMARY | 2021-11-07 19:39 | XMS_ITS | Encounter Summary ---
:1980 Author Organization [employer] Address [address] [place] [address] Care Team Providers Name Role Phone Sandy Viera MD Primary Care Provider Encounter Details Date Type Department Care Team Description 06/13/2020 Lab Visit [facility] Laboratory Dysuria [address] [place] [address] Social History Tobacco Use [...] encounter Progress Notes Stephanie Patel MD - 06/13/2020 4:50 PM CDT UC is inconclusive-- but pt was having symptoms. Can you see if she would be willing to come in for a cysto this week so I can see her bladder when she is having symptoms. The UA was neg. Thanks Jarrod Galarza RN - 06/13/2020 4:50 PM CDT Pt scheduled for 06/[address] Patel. documented in this encounter Plan of Treatment Not on filedocumented as of this encounter Procedures Procedure Name Priority Date/Time Associated Comments Diagnosis URINE CULTURE Routine 06/13/2020 4:55 PM Dysuria Results for this CDT procedure are i n the results section. URINALYSIS ROUTINE, Routine 06/13/2020 4:55 PM Dysuria Re sults for this MICRO/CULTURE IF POS CDT procedu re are in the results section. documented in this encounter Results (ABNORMAL) Urine Culture (06/13/2020 4:55 PM CDT) [facility] Dr. TATTOFF Method Time Signature Urine Culture Growth (A) 06/14/2020 [facility] 6:18 PM CDT HOSPITAL Urine Culture 10,000 - 50,000 06/14/2020 [facility] CFU/mL Multiple 6:18 PM CDT HOSPITAL Bacterial Morphotypes Specimen Anatomical Collection Method Collection Time Receive d Time (Source) Location / / Volume Laterality Urine URINE SPECIMEN Non-blood 06/13/2020 4:55 PM 021 4:55 COLLECTION, CLEAN Collection / CDT PM CDT CATCH / Unknown Unknown Stephanie Patel MD LAB_1 Performing Organization Address City/State/ZIP Code Phon e Number [address] [address] Urinalysis Routine, Micro/Culture if Pos (06/13/2020 4:55 PM CDT) [facility] Dr. TATTOFF Method Time Signature Urine Culture Urinalysis 06/13/2020 [facility] Comment results do not 5:00 PM CDT LABORATORY meet criteria for urine culture reflex. Urine Color Straw Straw-Yello 06/13/2020 [facility] w 5:00 PM CDT LABORATORY Urine Clarity Clear Clear 06/13/2020 [facility] 5:00 PM CDT LABORATORY Specific 1.025 1.005 - 06/13/2020 [facility] [place], 1.030 5:00 PM CDT LABORATORY Urine PH Urine 6.0 5.0 - 8.0 06/13/2020 [facility] 5:00 PM CDT LABORATORY Protein, Negative Neg/Trace 06/13/2020 [facility] Urine Qual 5:00 PM CDT LABORATORY (mg/dL) Glucose Urine Negative Negative 06/13/2020 [facility] Qual (mg/dL) 5:00 PM CDT LABORATORY Ketones, Negative Negative 06/13/2020 [facility] Urine (mg/dL) 5:00 PM CDT LABORATORY Urobilinogen, 0.2 <2.0 06/13/2020 [facility] Urine (EU/dL) 5:00 PM CDT LABORATORY Bilirubin Negative Negative 06/13/2020 [facility] Urine 5:00 PM CDT LABORATORY Blood, Urine Negative Neg/Trace 06/13/2020 [facility] 5:00 PM CDT LABORATORY Nitrite Urine Negative Negative 06/13/2020 [facility] 5:00 PM CDT LABORATORY Leukocyte Negative Negative 06/13/2020 [facility] Est. 5:00 PM CDT LABORATORY Urine Source Clean Catch 06/13/2020 [facility] 5:00 PM CDT LABORATORY Specimen Anatomical Collection Method Collection Time Receive d Time (Source) Location / / Volume Laterality Urine URINE SPECIMEN Non-blood 06/13/2020 4:55 PM 021 4:55 COLLECTION, CLEAN Collection / CDT PM CDT CATCH / Unknown Unknown Stephanie Patel MD LAB_1 Performing Organization Address City/State/ZIP Code Phon e Number [facility] [address] [place] [address] documented in this encounter Visit Diagnoses Diagnosis Dysuria documented in this encounter Care Teams Group Marketing Vp Relationship Specialty Start Date End Date Sandy Viera MD PCP - General Family Practice 07/20/19 10/29/20 [address] [place] [address] documented as of this encounter
--- OUTSIDE RECORDS SUMMARY | 2021-11-07 19:39 | XMS_ITS | Encounter Summary ---
:1980 Author Organization [email or web address] Address [address] [address] Care Team Providers Name Role Phone Sandy Viera MD Primary Care Provider Reason for Visit Reason Comments Nutrition Counseling Encounter Details Date Type Department Care Team Description 06/09/2020 Telemedicine [facility] Bariat[facility] Ame Espinal, Morbid o besity with BMI of 50.0-59.9, adult (HRC); Surgery & Weight RDN, LD CAMRYN (obstructive sleep apnea) Center [address] [facility] [address] [place] [id number] [phone] Social History Tobacco Use Types Packs/Day Years [...] documented as of this encounter Progress Notes Ame Espinal, RD - 06/09/2020 1:30 PM CDT [facility]: Bariatric MWM Follow-Up Nutrition visit completed today via video Location of Clinician: Clinic Location of Patient: other car (parked). ASSESSMENT: Referring Provider: Dr. Ascencio BMI: Estimated body mass index is 56.12 kg/m?? as calculated from the following: Height as of 02/26/20: 5' 6.5 (168.9 cm). Weight as of 02/26/20: 353 lb (371804 g).. Since last RD visit: Last saw by RD on 11/13/2019. Aware of nutrition recommendations, able to explain them to speech writer but biggest challenge remains her pain & depression.. Reports will grocery shop but then wont cook it, eat it, etc and go to [employer]. Feels she has gained wt, back pain has increased. Reports can't even do chores around the house or take a shower without back pain. Tearful during visit, sees outside psychologist but doesn't feel it has helped. Reports sometimes she goes to grocery store and sits in her car for a few hours. Reports some days she won't eat until 10 pm. Unable tocomplete visit, lost connection multiple times. Patient is not an appropriate candidate for desired bariatric surgery based on current dietary habits. Patient would likely be a better candidate by 3 meals/day, mindful eating, good water intake. Patient will return for follow up with dietitian to demonstrate lifestyle changes as noted above. Exercise: Patient is not engaging in physical activity. DIAGNOSIS: Nutrition Diagnosis: Overweight/Obesity (NC 3.3). related to: intake as evidenced by: BMI. We will continue to treat the following obesity-associated medical conditions and conditions exacerbated by or contributing to weight gain by aggressive management of weight: CAMRYN INTERVENTION: Healthy Diet and Meal planning. Mindful eating. Patient verbalizes understanding of the education. MONITORING AND EVALUATION: Patient identified goals: 1. Keep list of groceries inside refrigerator, on the outside of refrigerator. Follow up with dietitian to demonstrate progress with goals. Time: 25 minutes. Patient advised by dietitian prior the start of visit that their medical insurance may not provide coverage for MNT for their condition. Patient acknowledged they may be billed for up to $596. Patient accepts responsibility for payment when billed. PAW form mailed to patient to sign and return for scan carlos. documented in this encounter Plan of Treatment Not on filedocumented as of this encounter Visit Diagnoses Diagnosis Morbid obesity with BMI of 50.0-59.9, ad ult (HRC) CAMRYN (obstructive sleep apnea) Obstructive sleep apnea (adult) (pediatr ic) documented in this encounter Care Teams Judicial Assistant Relationship Specialty Start Date End Date Sandy Viera MD PCP - General Family Practice 07/20/19 10/29/20 [address] [place] [address] documented as of this encounter
--- OUTSIDE RECORDS SUMMARY | 2021-11-07 19:39 | XMS_ITS | Encounter Summary ---
:1980 Author Organization [facility] Address [address] [place] [address] Care Team Providers Name Role Phone Sandy Viera MD Primary Care Provider Reason for Visit Reason Comments CONSULT Left ear area and canal pain , cerumen. Encounter Details Date Type Department Care Team Description 06/03/2020 Office Visit Trevor Ellis, Left ear pain (Primary Dx); [place] [address] [facility] Impacted cerumen, left ear Nose, and Throat [address] [address] [place] [address] [phone] (Wo rk) Social History Tobacco Use Types [...] as of this encounter Patient Instructions Patient InstructionsTrevor Obrien MD - 06/03/2020 10:[address] Trevor Obrien Practice Locations: Nurse: Gay [phone] [facility] Surgery Coordinator: [phone] [facility] [address] Appointment [phone] [place] [address] [facility]nd [address] [facility] [address] 1. Left ear pain. Exam normal other than impacted wax which was cleaned. 2. Normal audio. 3. See wax guidelines below. Otherwise, call us for an ear cleaning. Try to avoid Q-tip usage. The head of the q-tip is similar in size to the ear canal and you will most likely pack the wax deeper into the canal. Treatments at home: 1. Buy Debrox over the counter. Use as directed. 2. Buy mineral oil over the counter. Place 2-3 drops in the canal and allow to soak for a few minutes. Then let it drain out. documented in this encounter Progress Notes Trevor Obrien MD - 06/03/2020 10:00 AM CDT ENT CLINIC NOTE Chief Complaint Patient presents with ??? CONSULT Left ear area and canal pain, cerumen. ASSESSMENT and PLAN 39-year-old female with left ear pain. Her exam is fairly normal other than impacted wax on that left side. She did seem to get resolution of symptoms after cleaning. In addition, her hearing is good. She was given guidelines for wax treatment. She will call me with any changes. Diagnosis(es) from this encounter: 1. Left ear pain 2. Impacted cerumen, left ear Referred by: Patient Self-Referral HISTORY Narinder Lucas is a 39 y.o. female who presents for evaluation of left ear pain. The patient reports is been going on for several months. The patient does note that she cleans her ears regularly. She uses Q-tips on both sides. She says it is painful when she uses the Q-tip. She feels like she cannot adequately get her left side clean. She denies any hearing changes. She denies any dizziness or vertigo. She is unaware of any past hearing issues or ear surgery. Patient was also asked about temporomandibular joint pain. She is unaware of any clenching or grinding. She denies any dental issues. She does wear CPAP. This is an over the nose and mouth appliance. She has been using this for years and has not had issues. Past Medical History: Diagnosis Date ??? COVID-19 03/16/2020 ??? Depression (emotion) (HRC) ??? Overactive bladder ??? Sleep apnea ??? Vitamin D deficiency Past Surgical History: Procedure Laterality Date ??? APPENDECTOMY 2016 ??? SECTION 2013 MEDICATIONS: Outpatient Medications Prior to Visit Medication Sig Dispense Refill ??? buPROPion (WELLBUTRIN XL) 150 MG 24 hour release tablet Take 3 Tablets by mouth daily. 90 Tablet5 ??? DULoxetine (CYMBALTA) 30 MG capsule Take 1 Capsule by mouth daily. 90 Capsule 0 ??? Ibuprofen 200 MG capsule Take 600 mg by mouth every 6 hours as needed for Pain. ??? ketoconazole (NIZORAL) 2 % cream Apply topically two times a day. Apply to face and under breasts twice daily as needed (Patient not taking: Reported on 05/13/2020) 60 g 3 ??? ketoconazole (NIZORAL) 2 % shampoo Apply topically daily as needed. (Patient not taking: Reported on 05/13/2020) 120 mL 11 ??? ondansetron (ZOFRAN) 4 MG tablet Take 1 Tablet by mouth every 8 hours as needed for Nausea. (Patient not taking: Reported on 05/13/2020) 30 Tablet 1 ??? ondansetron (ZOFRAN-ODT) 4 MG disintegrating tablet Take 4 mg by mouth as needed. ??? sertraline (ZOLOFT) 50 MG tablet Take 1 Tablet by mouth daily. (Patient not taking: Reported on 05/13/2020) 90 Tablet 0 ??? tiZANidine (ZANAFLEX) 2 MG tablet Take 0.5-1 Tablets by mouth two times daily as needed (Muscle pain and tension). 30 Tablet 1 ??? Vitamin D, Ergocalciferol, 1.25 MG (36974 UT) CAPS Take 1 Capsule by mouth once a week. 12 Capsule 0 No facility-administered medications prior to visit. ALLERGIES: No Known Allergies Social History: No tobacco Review of Systems:Pertinent items are noted in HPI. PHYSICAL EXAM .Estimated body mass index is 56.12 kg/m?? as calculated from the following: Height as of 02/26/20: 1.689 m (5' 6.5). Weight as of 02/26/20: 160.1 kg (353 lb). GENERAL: Patient is comfortable. No acute distress. Appears stated age, well developed and well nourished. VOICE: Normal communication EYES: Extraocular movements intact. No nystagmus EARS: Bilateral ears demonstrate normal pinna and EACs. TMs normal. Moderate cerumen in the left earcanal. I did place her under the microscope and cleaned this. I 1st tried with the cerumen spoon andthis was very tender for her. I then used a 7 suction and she tolerated this well. The underlying skin was normal. NOSE: External nose is normal. Anterior rhinoscopy demonstrates straight septum and normal nasal mucosa. ORAL CAVITY: Lips are normal, tongue normal, oral mucosa is moist. OROPHARYNX: Normal, tonsils 1+. Rodriguez tongue position type 3. Dentition in good shape NECK: No palpable periparotid or cervical lymphadenopathy. No thyroid masses RESPIRATORY: Quiet and even MOBILITY/ EXTREMITIES: Independent. Patient moves all extremities spontaneously. PSYCHIATRIC: Alert, cooperative Audio: Demonstrates normal hearing on both sides. Normal tympanograms. Discrimination is 100% on theright and 96% on the left. documented in this encounter Plan of Treatment Not on filedocumented as of this encounter Visit Diagnoses Diagnosis Left ear pain - Primary Otalgia, unspecified Impacted cerumen, left ear documented in this encounter Care Teams Intrusion Analyst Relationship Specialty Start Date End Date Sandy Viera MD PCP - General Family Practice 07/20/19 10/29/20 [address] [place] [address] documented as of this encounter
--- OUTSIDE RECORDS SUMMARY | 2021-11-07 19:39 | XMS_ITS | Encounter Summary ---
:1980 Author Organization [facility] Address [address] [address] Care Team Providers Name Role Phone Sandy Viera MD Primary Care Provider Reason for Visit Reason Comments Careplan: General Encounter Details Date Type Department Care Team Description 05/06/2020 Telephone [place] [facility] & Oralia Knapp, Careplan: General Weight Center RN [address] [facility] [address] [place] [address] Social History Tobacco Use Types Packs/Day Years [...] encounter Nursing Notes Castro Knapp RN - 05/06/2020 1:05 PM CDT Spoke to patient. She requested an e mail of next steps. Bolivar Woodard, Please do not send personal information or respond to this E mail. It is not secured. We spoke today. Here are the next steps to continue in the program. 1) A down load of your CPAP is necessary to proceed in the program. If you like, you can transfer care to Kimmy [place]. Call Elizabeth at [phone]. She can help transfer your care to Kimmy [place]. Tell her you are working toward Bariatric Surgery and need a down load of your CPAP. 2) Follow up with the Registered Dietitian. Continue to follow all of her recommendations. Your nextappointment is 06/09/20. 3) Please help coordinate care with your therapist and Madiha. I have attached a Permission to Verbally Speak form. Please fill it out, sign, and fax or mail back to me. This will allow Madiha and your therapist to talk on the phone. [facility] attn. Kevin [address] [place] [address] Please call me if you have any questions. Kevin Carmichael RN documented in this encounter Plan of Treatment Not on filedocumented as of this encounter Visit Diagnoses Not on filedocumented in this encounter Care Teams Freight Booker Relationship Specialty Start Date End Date Sandy Viera MD PCP - General Family Practice 07/20/19 10/29/20 [address] [place] [id number] documented as of this encounter
--- OUTSIDE RECORDS SUMMARY | 2021-11-07 19:39 | XMS_ITS | Encounter Summary ---
:1980 Author Organization [employer] Address [address] [place] [address] Care Team Providers Name Role Phone Sandy Viera MD Primary Care Provider Reason for Visit Reason Comments Medication Questions Encounter Details Date Type Department Care Team Description 08/18/2020 Nurse Triage [facility] Rose Morrow, [facility] ication Questions Medicine ON AWAKE COUNSELOR, DIRECTOR OF CORPORATE MARKETING [address] [place] [address] [place], [place] [phone] (Wo rk) Social History Tobacco Use Types [...] documented as of this encounter Nursing Notes Danielle Washington RN - 08/18/2020 4:19 PM CDT Spoke with pt. States that she was prescribed an antidepressant medication and she lost these, so has not been taking. Feels like she is now falling apart. Is in bed all day and can't do anything. Was prescribed Wellbutrin and Cymbalta previously. Does not take care of herself and doesn't do anything but lay in bed. Not drinking water or eating as she just wants to lay in bed. Denies any thoughts of harming herself or others. Problem list reviewed as related to this call. Reason for Disposition ??? Depression and unable to do any of normal activities (e.g., self care, school, work; in comparison to baseline). Protocols used: [id number] Adrián Dan - 08/18/2020 4:10 PM CDT Miscellaneous Questions & FYI's - Question/Concern (DO NOT use for billing and coding concerns see BEST care reporting system) What is your question or concern? Has questions about medication Is it okay to leave a detailed message on your voicemail? Yes (Advise caller that the PN call back number will end with [phone] or unknown) Please route to: Appropriate pool per call routing grid documented in this encounter Plan of Treatment Not on filedocumented as of this encounter Visit Diagnoses Not on filedocumented in this encounter Care Teams Golf Ball Trimmer Relationship Specialty Start Date End Date Sandy Viera MD PCP - General Family Practice 07/20/19 10/29/[address] [place] [address] documented as of this encounter
--- OUTSIDE RECORDS SUMMARY | 2021-11-07 19:39 | XMS_ITS | Encounter Summary ---
:1980 Author Organization [facility] Address [address] [place] [address] Care Team Providers Name Role Phone Sandy Viera MD Primary Care Provider Encounter Details Date Type Department Care Team Description 06/13/2020 Notes/Orders Stephanie Bedolla, Dysuria (Primary Dx) [facility] - Urology [address] [place] [address] [phone] (Wo rk) Social History Tobacco Use Types [...] of this encounter Results (ABNORMAL) Urine Culture (06/13/2020 4:55 PM CDT) [facility] Method Time Signature Urine Culture Growth (A) [...] Stephanie Patel MD LAB_1 Performing Organization Address [facility]/State/[place] [address] Urinalysis Routine, Micro/Culture if Pos (06/13/2020 4:55 PM CDT) [facility] Method Time Signature Urine Culture Urinalysis 06/13/2020 [facility] Comment results do not 5:00 PM CDT LABORATORY meet criteria for urine culture reflex. Urine Color Straw Straw-Yello 06/13/2020 [facility] w 5:00 PM CDT LABORATORY Urine Clarity Clear Clear 06/13/2020 [facility] 5:00 PM CDT LABORATORY Specific 1.025 1.005 - 06/13/2020 [facility] [place], 1.030 5:00 PM CDT LABORATORY Urine PH Urine 6.0 5.0 - 8.0 06/13/2020 [facility] 5:00 PM CDT LABORATORY Protein, Negative Neg/Trace 06/13/2020 [facility] Urine Qual 5:00 PM CDT LABORATORY (mg/dL) Glucose Urine Negative Negative 06/13/2020 [facility] Qual (mg/dL) 5:00 PM CDT LABORATORY Ketones, Negative Negative 06/13/2020 [facility] Urine (mg/dL) 5:00 PM CDT LABORATORY Urobilinogen, 0.2 <2.0 06/13/2020 [facility] Urine (EU/dL) 5:00 PM CDT LABORATORY Bilirubin Negative Negative 06/13/2020 [facility] Urine 5:00 PM CDT LABORATORY Blood, Urine Negative Neg/Trace 06/13/2020 [facility] 5:00 PM CDT LABORATORY Nitrite Urine Negative Negative 06/13/2020 [facility] 5:00 PM CDT LABORATORY Leukocyte Negative Negative 06/13/2020 [facility] Est. 5:00 PM CDT LABORATORY Urine Source Clean Catch 06/13/2020 [facility] 5:00 PM CDT LABORATORY Specimen Anatomical Collection Method Collection Time Receive d Time (Source) Location / / Volume Laterality Urine URINE SPECIMEN Non-blood 06/13/2020 4:55 PM 021 4:55 COLLECTION, CLEAN Collection / CDT PM CDT CATCH / Unknown Unknown Setphanie Patel MD LAB_1 Performing Organization Address City/State/ZIP Code Phon e Number [facility] [address] [place], [place] [phone] documented in this encounter Visit Diagnoses Diagnosis Dysuria - Primary documented in this encounter Care Teams Supervisor Veneer Relationship Specialty Start Date End Date Sandy Viera MD PCP - General Family Practice 07/20/19 10/29/[address] [place] [address] documented as of this encounter
--- OUTSIDE RECORDS SUMMARY | 2021-11-07 19:39 | XMS_ITS | Encounter Summary ---
:1980 Author Organization [employer] Address [address] [place] [address] Care Team Providers Name Role Phone Sandy Viera MD Primary Care Provider Reason for Visit Reason Comments Other Encounter Details Date Type Department Care Team Description 07/17/2020 Telephone [facility] Oralia Knapp RN Other [facility] [address] [facility] [address] [place], [place] [address] Social History Tobacco Use Types Packs/Day Years [...] encounter Nursing Notes Castro Knapp, SHEYLA - 07/17/2020 12:48 PM CDT Patient concerned of her weight. It keeps going up and she does not feel supported by our team. She feels her visits with us is mostly talking. She wants help with weight loss. She sees a personal therapist as instructed by Dr Zhu and feels she is making progress. I advised that it is very important to continue to follow up with her RD and our psychologists. Informed her it is very important to manage her mental health before we consider surgery. They will help with behavioral changes. Patient requested in clinic visits. Transferred to scheduling. documented in this encounter Plan of Treatment Not on filedocumented as of this encounter Visit Diagnoses Not on filedocumented in this encounter Care Teams Production Weigher Relationship Specialty Start Date End Date Sandy Viera MD PCP - General Family Practice 07/20/19 10/29/20 [address] [place] [address] documented as of this encounter
--- OUTSIDE RECORDS SUMMARY | 2021-11-07 19:39 | XMS_ITS | Encounter Summary ---
:1980 Author Organization [employer] Address [address], [place] [address] Care Team Providers Name Role Phone Sandy Viera MD Primary Care Provider Encounter Details Date Type Department Care Team Description 06/02/2020 Notes/Orders [facility] - Pamela Beauchamp, PT Physical Therapy [address] [address] [place] [address] [place] [address] [phone] Social History Tobacco Use Types Packs/Day Years [...] Progress Notes Pamela Beauchamp, PT - 06/02/2020 11:59 PM CDT [facility] Physical Therapy Discharge Summary Outcome measures at discharge: No outcome data collected. Attainment of goals: See above Patient Compliance with Therapy: Patient was compliant with attendance and therapy recommendations. Discharge recommendations: Patient will continue to work independently with home program/self management strategies. It is recommended that Narinder return to the physician. documented in this encounter Plan of Treatment Not on filedocumented as of this encounter Visit Diagnoses Not on filedocumented in this encounter Care Teams Implementation Lead Relationship Specialty Start Date End Date Sandy Viera MD PCP - General Family Practice 07/20/19 10/29/20 [address] [place] [address] documented as of this encounter
--- OUTSIDE RECORDS SUMMARY | 2021-11-07 19:39 | XMS_ITS | Encounter Summary ---
:1980 Author Organization [facility] Address [address] [place] [address] Care Team Providers Name Role Phone Sandy Viera MD Primary Care Provider Reason for Referral (Routine) - Closed Specialty Diagnoses / Procedures Referred By Contact Refer red To Contact Diagnoses Myofascial pain Pedrito Braun [place] [address] [place] [address] Referral ID Status Reason Start Date Expiration Date Visits Requ ested Visits Authorized [id number] Closed 06/09/2020 09/08/2021 1 1 herapies (Routine) - Closed Specialty Diagnoses / Procedures Referred By Contact Refer red To Contact Diagnoses Chronic bilateral low back pain without sciatica Myofascial pain Chronic pain of both knees Sedentary lifestyle Sleep deficient Severe episode of recurrent major depressive disorder, without psychotic features ([facility]) [place] [address] [place] [address] Referral ID Status Reason Start Date Expiration Date Visits Requ ested Visits Authorized [id number] Closed 06/09/2020 06/09/2021 1 1 Scheduling Instructions Your provider has recommended an appoint ment with [facility]. You may call [phone] to schedule yo ur appointment. We suggest you call your health insurance company about your cove rage and benefits for this appointment. Reason for Visit Reason Comments Follow-up back Encounter Details Date Type Department Care Team Description 06/09/2020 Office Visit Pedrito Villalobos, Chronic bi lateral low back pain without sciatica (Primary Dx); Rehabilitative Medic ine DO Myofascial pain; [address] [address] [place] Chronic pain of both knees; [place] [address] [place], [place] Sedentary lifestyle; [phone] Sleep deficient; [phone] Severe episode of recurrent major depressive disorder, without psychotic features ([facility]) (Work) Social History Tobacco Use Types Packs/Day Years [...] of this encounter Patient Instructions Patient InstructionsPedrito Braun DO - 06/09/2020 10:20 AM CDT Patient returns to clinic for follow-up. Since last being seen she continues to experience significant pain bilaterally in the low back as well as pain in both knees. She notes that tizanidine may be providing some relief. Continues have severe challenges with her depression. 1. Recommended patient work to try and be as as possible. Provided her previously with the video demonstrating pelvic tilt type exercises which I recommend performing at home on a regular basis. 2. Discussed risk benefits alternatives of trigger point injections, patient elected proceed, performed in clinic today. 3. Placed a new referral to begin treatment through the Lifestyle renewal program. 4. Continue tizanidine. Discussed that she could take this on a more frequent basis to see if it will help with sleep and bring down muscle tension. 5. Follow-up in 3 weeks. Search YouTube for How to Do The Pelvic Tilt Exercise by redefining strength Trigger Point Injections A trigger point is a tight, painful ???knot?? of muscle fibers. Injecting a trigger point can help relax the affected muscle and relieve pain. Typically a local anesthetic medication and corticosteroid medication are used for trigger point injections. Other medications such as botulinum toxin are used in some situations. Several injections may be needed in each trigger point to best relieve pain. These may be performed in sessions 2-3 weeks apart. Complications are very rare but may include infection, bleeding, increased pain, or lung puncture (pneumothorax). You will be monitored for a short period of time after each injection. The injection sites may be sore for a day or so. You may put ice or heat on the treated sites as instructed by your doctor. If youfeel fine after the procedure, you may resume light activities over the next several days and then return to your usual activities. You may notice you have pain relief for several hours followed by a return to your baseline pain. Longer lasting pain relief may be noticed 18-72 hours later. documented in this encounter Progress Notes Pedrito Braun DO - 06/09/2020 10:20 AM CDT PHYSICAL MEDICINE AND REHABILITATION Follow [...] participated additional physical therapy with limited relief. Today: Pain 3-4/10, and can be up to 10/10, dull/aching sharp/stabbing. Staying the same. Aggravatedby walking bending housework. Alleviated by resting. Denies weakness or numbness in either lower extremity. She also notes she is having pain in knees. Medications: Recently started Cymbalta by her primary to help with pain Bupropion for depression Tizanidine may be providing some benefit potentially helping with sleep. Past Medical History: Past Medical History: Diagnosis Date ??? COVID-19 03/16/2020 ??? Depression (emotion) ([facility]) ??? Overactive bladder ??? Sleep apnea ??? Vitamin D deficiency Medications: The patient has a current medication list which includes the following prescription(s):bupropion, duloxetine, ibuprofen, ondansetron, tizanidine, and vitamin d (ergocalciferol). Allergies: Patient has no known allergies. Physical Examination: Vital Signs: unknown if currently . General: Well-developed, well-nourished individual in no acute distress. Eyes: No scleral injection noted Psych: Calm, pleasant affect. Pulmonary: Non-labored breathing. Gait/Gross motor: Shortened stride, slowed laura. Lumbar Spine: ROM: Tender palpation in lower [...] bilateral low back pain without sciatica M54.5 Occupational Therapy G89.29 2. Myofascial pain M79.18 Occupational Therapy 3. Chronic pain of both knees M25.561 Occupational Therapy M25.562 G89.29 4. Sedentary lifestyle Z91.89 Occupational Therapy 5. Sleep deficient Z72.820 Occupational Therapy 6. Severe episode of recurrent major depressive disorder, without psychotic features ([facility]) F33.2 Occupational Therapy Recommendations: Patient returns to clinic for follow-up. Since last being seen she continues to experience significant pain bilaterally in the low back as well as pain in both knees. She notes that tizanidine may be providing some relief. Continues have severe challenges with her depression. 1. Recommended patient work to try and be as as possible. Provided her previously with the video demonstrating pelvic tilt type exercises which I recommend performing at home on a regular basis. 2. Discussed risk benefits alternatives of trigger point injections, patient elected proceed, performed in clinic today. 3. Placed a new referral to begin treatment through the Lifestyle renewal program. 4. Continue tizanidine. Discussed that she could take this on a more frequent basis to see if it will help with sleep and bring down muscle tension. 5. Follow-up in 3 weeks. Search YouTube for How to Do The Pelvic Tilt Exercise by redefining strength PROCEDURE NOTE Procedure: Trigger point injections Indication: Myofascial pain Examination of the involved area revealed findings consistent with the referral indication. I reviewed patient allergies and discussed the risks and benefits of the procedure with the patient. Benefitsinclude potential improvement of pain and function. Risks include, but are not limited to, infection, allergic reaction, local tissue breakdown, bleeding, damage to a nerve, post-injection flare, hyperglycemia, and increased pain. The patient indicated understanding and agreed to proceed. The informedconsent form was completed. The area of the pain was examined and the areas identified for injections were marked. 6 Trigger points were identified in the bilateral lumbar paraspinals x4, bilateral iliolumbar ligament in the areaof the SI joint. These areas were cleaned with alcohol in the usual manner. The procedure was carried out under aseptic technique. A mixture of 4 mL of 1% lidocaine and 2 mL (10 mg/mL) of triamcinoloneacetonide was used. A 25-gauge, 1.5-inch needle was atraumatically introduced and advanced into eachtrigger point. Following negative aspiration for blood, 1 mL of the mixture was injected into each trigger point. The patient tolerated the procedure well without immediate complication. The patient was given post-procedure care instructions. The patient was observed for ten minutes following the procedure and wasdismissed in good condition. The patient will follow-up as previously determined by the referring provider or may contact me with any questions or concerns regarding the procedure itself. Assessment: Successful trigger point injections Patient Education: The diagnosis, anatomy, basic pathophysiology, and management plan of the disorder were discussed with the patient. This note was created using voice recognition software and may contain typographical errors. Pedrito Braun DO Physical Medicine and Rehabilitation documented in this encounter Plan of Treatment Scheduled Referrals Name Type Priority Associated Diagnoses Order S chedule Occupational Therapy Referral Routine Chronic bilateral lo w back Ordered: 06/09/2020 pain without sci atica Myofascial pain Chronic pain of both knees Sedentary lifest yle Sleep deficient Severe episode of recurrent major depressive disorder, without psychotic features ([facility]) documented as of this encounter Visit Diagnoses Diagnosis Chronic bilateral low back pain without sciatica - Primary Myofascial pain Mylagia and myositis, unspecified Chronic pain of both knees Sedentary lifestyle Other specified personal history present ing hazards to health Sleep deficient Problems related to lack of adequate sle ep Severe episode of recurrent major depres sive disorder, without psychotic features ([facility]) documented in this encounter Care Teams Magazine Hand Relationship Specialty Start Date End Date Sandy Viera MD PCP - General Family Practice 07/20/19 10/29/20 [address] [address] [place] [address] documented as of this encounter
--- OUTSIDE RECORDS SUMMARY | 2021-11-07 19:39 | XMS_ITS | Encounter Summary ---
:1980 Author Organization [employer] Address [address] [place] [address] Care Team Providers Name Role Phone Sandy Viera MD Primary Care Provider Reason for Visit Reason Comments Follow-up, NOS Encounter Details Date Type Department Care Team Description 06/09/2020 Telephone [facility] Sandy Bone MD [place] [address] [place] [address] [place], [place] [address] (Wo rk) Social History Tobacco Use Types [...] as of this encounter Nursing Notes Rose Morrow, CONRAD, ULTRASOUND COORDINATOR - 06/12/2020 3:52 PM CDT Patient has been seeing a new counselor and is adherent to medication regimen, which has not been the case for awhile. She lives down in [place], so making it to appts in person is challenging. I will plan to discuss Care Coordination with her the next time that we meet. Thank you! Sandy Viera MD - 06/09/2020 4:09 PM CDT Patient has been following Rose Morrow and will forward it to her the request. Thanks Sandy Viera MD - 06/09/2020 4:08 PM CDT ----- Message from Roxane Klein sent at 06/09/2020 3:56 PM CDT ----- Regarding: Any insights Sandy, This mutual patient is currently pursuing a surgical intervention for the purposes of weight loss. We have not seen her for some time in the bariatric clinic. Ame recently saw her for nutritional education. Appears patient is struggling. Is she well know to you? Does she have any barriers to care? Would you consider referring her for care co ordination. Thank you for insight. Carrie ----- Message ----- From: Ame Espinal RD Sent: 06/09/2020 2:43 PM CDT To: Roxane Klein FYI - worried about her. We haven't seen her in quite a while, but doesn't seem like things have gotten any better for her. documented in this encounter Plan of Treatment Not on filedocumented as of this encounter Visit Diagnoses Not on filedocumented in this encounter Care Teams Insurance Manager Relationship Specialty Start Date End Date Sandy Viera MD PCP - General Family Practice 07/20/19 10/29/20 [address] [place] [address] documented as of this encounter
--- OUTSIDE RECORDS SUMMARY | 2021-11-07 19:39 | XMS_ITS | Encounter Summary ---
:1980 Author Organization [facility] Address [address] [place] [address] Care Team Providers Name Role Phone Rose Morrow APRN, CNP Primary Care Provider [phone] Reason for Visit Reason Comments Appt. Needed Encounter Details Date Type Department Care Team Description 07/11/2020 Telephone [facility] Rose Ragland, Appt. Needed [address] [employer] [place] [address] [address] [phone] [place], [place] [address] (Wo rk) Social History Tobacco Use Types [...] documented as of this encounter Nursing Notes Margarita Llamas LPN - 07/11/2020 4:27 PM CDT (Frontline/PSC: If caller has no additional questions after reading below message, update note and close encounter) Left message for patient to call back. Frontline/[facility] ([facility]), please inform patientof below message. Can you call this patient and ask her to schedule a follow up video visit to discuss her depression/meds? Margarita Llamas LPN - 07/11/2020 4:26 PM CDT ----- Message from Rose Morrow APRN, CNP sent at 07/11/2020 12:50 PM CDT ----- Regarding: FW: no-show 07/02 Grecia, Can you call this patient and ask her to schedule a follow up video visit to discuss her depression/meds? Rose ----- Message ----- From: Sandy Viera MD Sent: 07/03/2020 10:36 AM CDT To: Rose Morrow APRN, NEW Subject: FW: no-show 07/02 Bol[place]ar Rose, You have been seeing the pt.Can you please follow up on this.Thanks Sandy. ----- Message ----- From: Carrie Ascencio MBChB Sent: 07/02/2020 1:29 PM CDT To: Sandy Viera MD, # Subject: RE: no-show 07/02 Madiha, all good points. Sandy: Please see below. I'm not sure us at the bariatric clinic are able to meet this patient's psychosocial and cultural needs at present. Please could you assist here? Thank you! ----- Message ----- From: Madiha Zhu PsyD, LP Sent: 07/02/2020 1:13 PM CDT To: Ame Espinal RD, Carrie [facility] Subject: no-show 07/02 Arjunlo there--Narinder was a no show to our visit today. I haven't seen her since November because she also no-showed our visit in January. Dr. Ascencio--you mentioned in your last visit note that a critical care nurse would be reaching out to her. I'm not familiar with the resources in the [facility], but I'm wondering if they could help her get connected to an IOP or Partial Hospitalization program? I'm not sure if she would engage with something like that, but it appears that things aren't getting better with her current outpatient resources. I also wonder if the resources available to her might not be culturally responsive, which might contribute to not finding a good fit. It's too bad she didn't live closer to the [facility], where [facility] or [facility] services would be options for her. I'm guessing that would be about an hour drivein one direction. The websites don't indicate whether telehealth is an option, but I think in-personvisits would be more effective anyway. documented in this encounter Plan of Treatment Not on filedocumented as of this encounter Visit Diagnoses Not on filedocumented in this encounter Care Teams Stone Processing Machine Operator Relationship Specialty Start Date End Date Rose Morrow, SOIL TECHNOLOGIST, ACCOUNTING OFFICE MANAGER PCP - General Nurse Practitioner 10/30/20 [address] [place] [address] documented as of this encounter
--- OUTSIDE RECORDS SUMMARY | 2021-11-07 19:39 | XMS_ITS | Encounter Summary ---
:1980 Author Organization [employer] Address [address] [place] [address] Care Team Providers Name Role Phone Sandy Viera MD Primary Care Provider Reason for Visit Reason Onset Date Comments MEDICATION CHECK SOB (SHORTNESS OF BREATH) Video Visit 05/09/2020 Encounter Details Date Type Department Care Team Description 05/09/2020 Tele[facility]icine [facility] Rose Morrow, Peggy ere episode of recurrent major depressive disorder, without psychotic features (HRC) (Primary Dx); Medicine [place] MIKEY (generalized anxiety disorder); [address] [facility] [address] [facility] Morbid obesity with BMI of 50.0-59.9, ad ult (HRC); [place] [address] [place], [place] Chronic low back pain, unspe cified back pain laterality, unspecified whether sciatica present [phone] (Wo rk) Social History Tobacco Use Types [...] of this encounter Progress Notes Rose Morrow, CONRAD, ARRT TECHNOLOGIST - 05/09/2020 8:20 AM CDT Subjective: Today's visit with Narinder was conducted as a scheduled video visit. She is following up on multiple concerns. ?? Depression: Prior to patient's COVID-19 diagnosis, she was demonstrating some improvement in her depression on recently initiated Wellbutrin. We had titrated to Wellbutrin XL 450mg daily. She was finding it easier to motivate and do things around the house and was feeling less bad about herself. She feels like depression has worsened a bit after her diagnosis. She was advised to add sertraline 50mg at her appt in late March. She took it for about 2 weeks, but felt worse while on it. She thinks itmade her feel mentally foggy and nauseous. She stopped taking it on 04/15. She has started therapy andhas had three sessions thus far. Her last session was yesterday and she thinks that there were some g ood ideas shared that she can work on. However, she still feels like a hostage of her depression. She feels paralyzed by inaction and feels like she can't do anything. She will go grocery shopping for healthy food and then will let it go bad in the refrigerator and go to [employer] instead. Sometimes, she will wait in the parking lot of the grocery store for a few hours as she can't muster the motivation to go in. She continues to deny SI. ?? COVID-19:??Patient was diagnosed with COVID-19 with Vault test on 03/16/2020. Initial symptoms began the day prior with nasal congestion, fatigue, headache, and chills.??She then developed a dry cough, muscle aches, loss of smell/taste, nausea, dizziness, and fatigue.??Patient then went to ER due to onset of chest pain with deep breaths and feeling winded. She underwent CXR (negative), troponin (neg), d-dimer (neg), BMP (wnl), and CBC (wnl). She was given Decadron and anti-nausea medications. Her O2 was stable and vitals/physical exam were reassuring so she was discharged home. Patient states that since then, she has noticed resolution of fever, chills, headache, and sore throat. Appetite has slowlyimproved. However, she still has shortness of breath when climbing stairs. No dyspnea at rest. No chest pain. Taste and smell has improved. She is still quite nauseous and has little appetite. ?? Chronic low back pain: Patient states that her low back has really been bothering her. She has trouble standing or walking for even short amounts of time due to a sharp pain in her lumbar spine. She has been doing PT, but took a few weeks off due to COVID-19. She was supposed to meet with PM&R, but no- showed. She has reschedule her appt for next week. She has missed two prior appts as well, so can no longer schedule with one of the PM&R physicians. Objective: There were no vitals taken for this visit. General: WDWN female in NAD Psych: Appropriate mood and affect PHQ-9 05/09/2020 03/20/2020 02/07/2020 PHQ-9 Score Total 20 13 16 Q1: Loss of Int/Pleas +++ +++ +++ Q2: Depressed mood +++ +++ +++ Q3: Sleep problems +++ +++ +++ Q4: Tired/Low Energy +++ +++ +++ Q5: Appetite change +++ + +++ Q6: Feelings of failure + - + Q7: Concentration Prob + - - Q8: Slow or Restless +++ - - Q9: Thought Self Harm - - - Date PHQ9 was completed - 03/20/2020 02/07/2020 MIKEY-7 07/21/2019 Feeling nervous 0 Can't stop worrying 0 Worrying too much 0 Trouble relaxing 0 Restlessness 0 Easily annoyed 0 Feeling afraid 1 Total score 1 Assessment/Plan: Severe episode of recurrent major depressive disorder, without psychotic features (HRC)/MIKEY (generalized anxiety disorder) (HRC) - Initiate DULoxetine (CYMBALTA) 30 MG capsule; Take 1 Capsule by mouth daily. Discussed added benefit of helping with chronic low back pain. - Discussed black box warning: Including worsening of depression or thoughts of suicide which may occur as a result of the SNRI and often occur at initiation or with [...] wishes to proceed. Prescription provided. - Continue Wellbutrin XL 450mg daily. - Continue counseling. - Recheck in 4 weeks, sooner if worsening. Morbid obesity with BMI of 50.0-59.9, adult (HRC): Follow up with weight management as planned. Chronic low back pain, unspecified back pain laterality, unspecified whether sciatica present (HRC):Emphasized importance of remembering her upcoming PM&R appt. Highly recommended that she write it down on her calendar. In the past, I have had to call patient multiple times for video visits before she picks up, but she typically will always answer at some point the day of her appt. Clinician located at clinic. Patient located at other parked car Billing based on: Complexity Rose Morrow APRN, CNP documented in this encounter Plan of Treatment Not on filedocumented as of this encounter Visit Diagnoses Diagnosis Severe episode of recurrent major depres sive disorder, without psychotic features (HRC) - Primary MIKEY (generalized anxiety disorder) (HRC) Generalized anxiety disorder Morbid obesity with BMI of 50.0-59.9, ad ult (HRC) Chronic low back pain, unspecified back pain laterality, unspecified whether sciatica present documented in this encounter Care Teams Baggagemaster Relationship Specialty Start Date End Date Sandy Viera MD PCP - General Family Practice 07/20/19 10/29/20 [address] [place] [address] [place] [id number] documented as of this encounter
--- OUTSIDE RECORDS SUMMARY | 2021-11-07 19:39 | XMS_ITS | Encounter Summary ---
:1980 Author Organization [employer] Address [address] [place] [address] Care Team Providers Name Role Phone Sandy Viera MD Primary Care Provider Reason for Visit Reason Comments Follow-up, NOS Encounter Details Date Type Department Care Team Description 06/26/2020 Telephone Stephanie Van MD [place] [address] Urology [address] [facility] [address] [place] [address] [place] [address] [phone] Social History Tobacco Use Types Packs/Day Years [...] encounter Nursing Notes Alize Rawls RN - 09/11/2020 11:09 AM CDT Appointment for botox procedure and follow up booked. Pt will hold any blood thinners for 7 days. Order placed for ua/cultue. Jarrod Galarza RN - 09/10/2020 4:27 PM CDT Narinder is calling to ask about setting up botox appointment. Alize Rawls RN - 06/26/2020 2:34 PM CDT Prior authorization was submitted on 06/20 for Botox 150 units. Fax was received stating that a priorauth is not required. I did call to confirm and was told no PA required and that [id number] is a billablecode per [employer] Guideline. Ref # [id number]. Called pt and left a message to call me back to set up appointments. documented in this encounter Plan of Treatment Not on filedocumented as of this encounter Results (ABNORMAL) Urine Culture (10/20/2020 6:55 PM CDT) [facility] Method Time Signature Urine Culture Growth (A) 10/21/2020 [facility] 8:15 PM CDT HOSPITAL Urine Culture 50,000 - 10/21/2020 [facility] 100,000 CFU/mL 8:15 PM CDT HOSPITAL Multiple Bacterial Morphotypes Specimen Anatomical Collection Method Collection Time Receive d Time (Source) Location / / Volume Laterality Urine URINE SPECIMEN Non-blood 10/20/2020 6:55 PM 021 6:55 COLLECTION, CLEAN Collection / CDT PM CDT CATCH / Unknown Unknown Stephanie Patel MD LAB_1 Performing Organization Address City/State/ZIP Code [facility] e Number [address] [address] UA (Micro if positive) - Lab collect (10/20/2020 6:55 PM CDT) [facility] Method Time Signature Urine Color Straw Straw-Yellow 10/20/2020 [facility] 7:00 PM CDT LABORATORY Urine Clarity Clear Clear 10/20/2020 [facility] 7:00 PM CDT LABORATORY Specific 1.025 1.005 - 10/20/2020 [facility] [place], 1.030 7:00 PM CDT LABORATORY Urine PH Urine 6.0 5.0 - 8.0 10/20/2020 [facility] 7:00 PM CDT LABORATORY Protein, Negative Neg/Trace 10/20/2020 [facility] Urine Qual 7:00 PM CDT LABORATORY (mg/dL) Glucose Urine Negative Negative 10/20/2020 [facility] Qual (mg/dL) 7:00 PM CDT LABORATORY Ketones, Negative Negative 10/20/2020 [facility] Urine (mg/dL) 7:00 PM CDT LABORATORY Urobilinogen, 0.2 <2.0 10/20/2020 [facility] Urine (EU/dL) 7:00 PM CDT LABORATORY Bilirubin Negative Negative 10/20/2020 [facility] Urine 7:00 PM CDT LABORATORY Blood, Urine Negative Neg/Trace 10/20/2020 [facility] 7:00 PM CDT LABORATORY Nitrite Urine Negative Negative 10/20/2020 [facility] 7:00 PM CDT LABORATORY Leukocyte Negative Negative 10/20/2020 [facility] Est. 7:00 PM CDT LABORATORY Urine Source Clean Catch 10/20/2020 [facility] 7:00 PM CDT LABORATORY Specimen Anatomical Collection Method Collection Time Receive d Time (Source) Location / / Volume Laterality Urine URINE SPECIMEN Non-blood 10/20/2020 6:55 PM 021 6:55 COLLECTION, CLEAN Collection / CDT PM CDT CATCH / Unknown Unknown Stephanie Patel MD LAB_1 Performing Organization Address City/State/ZIP Code Phon e Number [facility] [address] [place], [place] [phone] documented in this encounter Visit Diagnoses Diagnosis OAB (overactive bladder) - Primary Hypertonicity of bladder documented in this encounter Care Teams Stepdown Nurse Relationship Specialty Start Date End Date Sandy Viera MD PCP - General Family Practice 07/20/19 10/29/20 [address] [place] [id number] documented as of this encounter
--- OUTSIDE RECORDS SUMMARY | 2021-11-07 19:39 | XMS_ITS | Encounter Summary ---
:1980 Author [facility] Address [address] [place] [address] Care Team Providers Name Role Phone Sandy Viera MD Primary Care Provider Reason for Referral Consult/Transfer Care (Routine) - Closed Specialty Diagnoses / Procedures Referred By Contact Refer red To Contact Diagnoses Left ear pain Trevor Obrien MD [address] [place], [place] [address] Referral ID Status Reason Start Date Expiration Date Visits Requ ested Visits Authorized [id number] Closed 05/29/2020 08/28/2021 1 1 Scheduling Instructions Your provider has recommended an appoint ment with [facility]. You may call [phone] to schedule your appoi ntment. We suggest you call your health insurance company about your coverage an d benefits for this appointment. Encounter Details Date Type Department Care Team Description 05/29/2020 Notes/Orders [place] [address] Trevor Obrien, Left ear pain Ear, Nose, and Throa t (Primary Dx) [facility] [place] [address] [phone] (Wo rk) Social History Tobacco Use Types [...] documented as of this encounter Progress Notes Gay Whalen RN - 05/29/2020 9:11 AM CDT Per standing order, Audiology referral placed as patient has Medicare/Medicaid insurance. Gay Whalen RN 9:12 AM 05/29/2020 documented in this encounter Plan of Treatment Scheduled Referrals Name Type Priority Associated Diagnoses Order S chedule Audiology Referral Routine Left ear pain Ordered: 05/29 Consult-Adult/Peds documented as of this encounter Visit Diagnoses Diagnosis Left ear pain - Primary Otalgia, unspecified documented in this encounter Care Teams Needle Loom Operator Relationship Specialty Start Date End Date Sandy Viera MD PCP - General Family Practice 07/20/19 10/29/20 [address] [address] [place] [address] documented as of this encounter
--- OUTSIDE RECORDS SUMMARY | 2021-11-07 19:39 | XMS_ITS | Encounter Summary ---
:1980 Author Organization [facility] [employer] Address [address] [place] [address] Care Team Providers Name Role Phone Sandy Viera MD Primary Care Provider Reason for Referral Procedure/Equipment (Routine) - Incomplete Specialty Diagnoses / Procedures Referred By Contact Refer red To Contact Diagnoses Chronic bilateral low back pain without sciatica Pedrito Braun DO [place] [address] [place] [address] Referral ID Status Reason Start Date Expiration Date Visits V isits Requested Authorized [id number] Incomplete 05/13/2020 08/12/2021 1 1 Reason for Visit Reason Comments CONSULT low back Encounter Details Date Type Department Care Team Description 05/13/2020 Office Visit Pedrito Villalobos, Chronic bi lateral low back pain without sciatica (Primary Dx); Rehabilitative Medic ine DO Right calf pain; [address] [place] [address] [address] [place] Morbid obesity with BMI of 50.0-59.9, ad ult (HRC); [place] [address] [place] CAMRYN (obstructive sleep apnea ); [phone] Sleep deficient; [phone] Severe episode of recurrent major depressive disorder, [...] Patient Instructions Patient InstructionsPedrito Braun DO - 05/13/2020 11:40 AM CDT Patient presents to clinic today for evaluation of severe bilateral low back pain. Symptoms have been present for multiple years. Patient also has significant challenges with depression and severe obesity. On exam today significantly increased lumbar lordosis. Tender palpation in lumbar paraspinals. Increased pain with lumbar extension. Palpation of lumbar paraspinals did seem to reproduce some of the patient's symptoms, significant tightness noted. Strength, reflexes and sensation did appear well preserved in the lower extremities. 1. Reviewed prior lumbar MRI from 2013 which overall was reassuring. Discussed that I do think wouldbe reasonable to get an updated MRI of the lumbar spine to evaluate for new issues. Order signed. 2. Recommended beginning with basic pelvic tilt type exercises to strengthen the core. Discussed howher increased lumbar lordosis is leading to increased tension in the low back and increased pressurein the facet joints. Search YouTube for How to Do The Pelvic Tilt Exercise by redefining strength. 3. Agree with the starting of Cymbalta. Hopefully this will provide some benefit. 4. Provided prescription for tizanidine. Recommend taking this at night to hopefully improve some ofher sleep quality and reduce muscle tension. 5. Discussed the importance of weight loss in improving back mechanics. We will focus on reducing her discomfort so that she is able to get more activity which will also hopefully help with control of herdepression. Return to clinic in 2 weeks for follow-up and discussion further management. documented in this encounter Progress Notes Pedrito Braun DO - 05/13/2020 11:40 AM CDT PHYSICAL MEDICINE AND REHABILITATION INITIAL VISIT Referral Source: Self-Referral, Patient, [place] [address] Chief Complaint: Chief Complaint Patient presents with ??? CONSULT low back History of Present Illness: Narinder Lucas [...] making her depression worse by limiting activity. Today: Pain located bilaterally in the low back dull/aching sharp/stabbing. Aggravated by bending, walking, housework. Denies alleviating factors. She does not note numbness tingling or weakness in either lower extremity. Denies bowel incontinence. Medications: Recently started Cymbalta by her primary to help with pain Bupropion for depression Past Medical History: Past Medical History: Diagnosis Date ??? COVID-19 03/16/2020 ??? Depression (emotion) (HRC) ??? Overactive bladder ??? Sleep apnea ??? Vitamin D deficiency Medications: The patient has a current medication list which includes the following prescription(s):bupropion, duloxetine, ibuprofen, ketoconazole, ketoconazole, ondansetron, ondansetron, sertraline, tizanidine, and vitamin d (ergocalciferol). Allergies: Patient has no known allergies. Physical Examination: Vital Signs: unknown if currently . General: Well-developed, well-nourished individual in no acute distress. Eyes: No scleral injection noted Psych: Calm, pleasant affect. Pulmonary: Non-labored breathing. Skin: No lesions or rashes over exposed surfaces Gait/Gross motor: Shortened stride, slowed laura. Strength: Left Right Hip Flexion 5 5 Knee Extension 5 5 Knee Flexion 5 5 Dorsiflexion 5 5 EHL 5 5 Reflexes: 2+ bilateral patellar, Achilles. Plantar responses are equivocal bilaterally. Sensation: Normal light touch sensation throughout bilateral lower limbs. SLR: Straight leg raise is negative for radicular pain or paresthesias bilaterally. Lumbar Spine: ROM: Increased pain with lumbar extension. Increased pain with lumbar flexion, limited range of motion in both directions. Tender to palpation in the lumbar paraspinals bilaterally. Also tender to palpation in gluteal muscles. Data: I personally reviewed images and showed the patient the outside MRI lumbar spine 02/06/2014 with findings as per the complete report. MRI L-spine 02/06/2014 FINDINGS: The overall stature, alignment and intrinsic marrow signal of the lumbar spine is within normal limits. Conus is normal. No suspicious disc bulges or protrusions. No suspicious central canal or foraminal narrowing. No evidence of cord compression within the visualized distal thoracic and lumbar spine. IMPRESSION: Unremarkable MRI of the lumbar spine. Assessment: ICD-10-CM 1. Chronic bilateral low back pain without sciatica M54.5 MR Lumbar Spine WO IV Cont G89.29 2. Right calf pain M79.661 3. Morbid obesity with BMI of 50.0-59.9, adult ([facility]) E66.01 Z68.43 4. CAMRYN (obstructive sleep apnea) G47.33 5. Sleep deficient Z72.820 6. Severe episode of recurrent major depressive disorder, without psychotic features ([facility]) F33.2 Recommendations: Patient presents to clinic today for evaluation of severe bilateral low back pain. Symptoms have been present for multiple years. Patient also has significant challenges with depression and severe obesity. On exam today significantly increased lumbar lordosis. Tender palpation in lumbar paraspinals. Increased pain with lumbar extension. Palpation of lumbar paraspinals did seem to reproduce some of the patient's symptoms, significant tightness noted. Strength, reflexes and sensation did appear well preserved in the lower extremities. 1. Reviewed prior lumbar MRI from 2013 which overall was reassuring. Discussed that I do think wouldbe reasonable to get an updated MRI of the lumbar spine to evaluate for new issues. Order signed. 2. Recommended beginning with basic pelvic tilt type exercises to strengthen the core. Discussed howher increased lumbar lordosis is leading to increased tension in the low back and increased pressurein the facet joints. Search YouTube for How to Do The Pelvic Tilt Exercise by redefining strength. 3. Agree with the starting of Cymbalta. Hopefully this will provide some benefit. 4. Provided prescription for tizanidine. Recommend taking this at night to hopefully improve some ofher sleep quality and reduce muscle tension. 5. Discussed the importance of weight loss in improving back mechanics. We will focus on reducing her discomfort so that she is able to get more activity which will also hopefully help with control of herdepression. Return to clinic in 2 weeks for follow-up and discussion further management. Patient Education: The diagnosis, anatomy, basic pathophysiology, and management plan of the disorder were discussed with the patient. This note was created using voice recognition software and may contain typographical errors. Pedrito Braun DO Physical Medicine and Rehabilitation documented in this encounter Plan of Treatment Not on filedocumented as of this encounter Results MR Lumbar Spine WO IV Cont (05/15/2020 5:25 PM CDT) Anatomical Region Laterality Modality Spine, L-Spine, Skeletal Magnetic Resona nce Specimen (Source) Anatomical Collection Method Collection Time Re ceived Time Location / / Volume Laterality 05/15/2020 4:53 PM CDT Impressions 05/15/2020 7:28 PM CDT INDICATION: Back pain or radiculopathy, > 6 wks TECHNIQUE: ??Routine non-contrast MRI of the lumbar spine. COMPARISON: None. FINDINGS: Sagittal: 5 lumbar type vertebral bodies. First tr apezoidal segment labeled S1. Mild loss of hydration signal mild degenerative endplate signal change at L3-4 level. Bone marrow signal characteristics, vertebral body alignment, remainder of interverteb ral discs and lower thoracic spinal cord appear otherwise unremarkable. Axial: T12-L1 level: Unremarkable. L1-2 level: Unremarkable. L2-3 level: Unremarkable. L3-4 level: Small bilateral facet joint effusions. L4-5 level: Small bilateral facet joint effusions. L5-S1 level: Mild bilateral facet joint effusions. IMPRESSION: 1. Mild degenerative changes as detailed above. 2. No evidence for focal nerve root impi ngement, subluxation, stress reaction or vertebral body compression fracture. Comment: Many lumbar spine MRI findings are so common that while we may have reported their presence, they must be interpreted with caution and in the context of the clinical situation. The frequency of these findings in adults WITHOUT low ba ck pain increases with age and are as follows: disk degeneration (37-96%), disk height loss (24-84%), disk bulge (30- 84%), disk protrusion (29-43%), annular fissure (19-29%), and facet degeneration (4-83%). Frequency percentages adapted from Eliza rogel W, Shalini PH, Andre B, et al. AJNR AM J Neuroradiol 2015:36:811-16. Procedure Note Sj Rodriguez MD - 05/15/2020Formattin g of this note might be different from the original. IMPRESSION INDICATION: Back pain or radiculopathy, > 6 wks TECHNIQUE: Routine non-contrast MRI of t he lumbar spine. COMPARISON: None. FINDINGS: Sagittal: 5 lumbar type vertebral bodies. First tr apezoidal segment labeled S1. Mild loss of hydration signal mild degenerative endplate signal change at L3-4 level. Bone marrow signal characteristics, vertebral body alignment, remainder of intervertebral discs and lo wer thoracic spinal cord appear otherwise unremarkable. Axial: T12-L1 level: Unremarkable. L1-2 level: Unremarkable. L2-3 level: Unremarkable. L3-4 level: Small bilateral facet joint effusions. L4-5 level: Small bilateral facet joint effusions. L5-S1 level: Mild bilateral facet joint effusions. IMPRESSION: 1. Mild degenerative changes as detailed above. 2. No evidence for focal nerve root impi ngement, subluxation, stress reaction or vertebral body compression fracture. Comment: Many lumbar spine MRI findings are so common that while we may have reported their presence, they must be interpreted with caution and in the context of the clinical situation. The frequency of these findings in adults WITHOUT low back pain increases w ith age and are as follows: disk degeneration (37-96%), disk height loss (24-84%), disk bulge (30-84%), disk protrusion (29-43%), annular fissure (19-29%), and facet degeneration (4-83%). Frequency percentages adapted from Eliza rogel W, Lukhoa PH, Andre B, et al. AJNR AM J Neuroradiol 2015:36:811-16. Pedrito Braun DO JANNETTE MRI documented in this encounter Visit Diagnoses Diagnosis Chronic bilateral low back pain without sciatica - Primary Right calf pain Morbid obesity with BMI of 50.0-59.9, ad ult (HRC) CAMRYN (obstructive sleep apnea) Obstructive sleep apnea (adult) (pediatr ic) Sleep deficient Problems related to lack of adequate sle ep Severe episode of recurrent major depres sive disorder, without psychotic features (HRC) Chronic bilateral low back pain without sciatica documented in this encounter Care Teams Mems Device Scientist Relationship Specialty Start Date End Date Sandy Viera MD PCP - General Family Practice 07/20/19 9 [address] [address] [place] [address] documented as of this encounter
--- OUTSIDE RECORDS SUMMARY | 2021-11-07 19:39 | XMS_ITS | Encounter Summary ---
:1980 [email or web address] Address [address] [place] [address] Care Team Providers Name Role Phone Sandy Viera MD Primary Care Provider Reason for Visit Procedure/Equipment (Routine) - Incomplete Specialty Diagnoses / Procedures Referred By Contact Refer red To Contact Diagnoses Chronic bilateral low back pain without sciatica Pedrito Braun, DO Procedures MR Lumbar Spine [place] [address] [place] [address] Referral ID Status Reason Start Date Expiration Date Visits V isits Requested Authorized [id number] Incomplete 05/13/2020 08/12/2021 1 1 Encounter Details Date Type Department Care Team Description 05/15/2020 [facility] [place] Pedrito Tavera, Chronic b ilateral Procedure [place] [address] DO low back [place] Radiology [place] [address] without sciatica [address] [place], [place] [address] [address] [place], [place] [phone] (Work) [phone] Social History Tobacco Use Types Packs/Day Years [...] Name Priority Date/Time Associated Diagnosis Comme nts MR LUMBAR SPINE WO Routine 05/15/2020 5:25 PM Chronic bilatera l Results for this IV CONT CDT low back pain procedure are in without sciatica the results section. documented in this encounter Results MR Lumbar Spine WO [...] from Eliza rogel W, Shalini PH, Andre Bishop, et al. AJNR AM J Neuroradiol 2015:36:811-16. [...] facet degeneration (4-83%). Frequency percentages adapted from Brag rogel W, Shalini PH, Andre B, et al. AJNR AM J Neuroradiol 2015:36:811-16. Pedrito Braun DO JANNETTE MRI documented in this encounter Visit Diagnoses Diagnosis Chronic bilateral low back pain without sciatica documented in this encounter Care Teams Building Maintenance Mechanic Relationship Specialty Start Date End Date Sandy Viera MD PCP - General Family Practice 07/20/19 10/29/20 [address] [place] [address] documented as of this encounter
--- OUTSIDE RECORDS SUMMARY | 2021-11-07 19:39 | XMS_ITS | Encounter Summary ---
:1980 Author Organization [employer] Address [address] [place] [address] Care Team Providers Name Role Phone Sandy Viera MD Primary Care Provider Reason for Visit Reason Comments EAR,PLUGGED Ear Pain Consult/Transfer Care (Routine) - Closed Specialty Diagnoses / Procedures Referred By Contact Refer red To Contact Diagnoses Left ear pain Trevor Obrien MD [address] [place], [place] [address] Referral ID Status Reason Start Date Expiration Date Visits Requ ested Visits Authorized [id number] Closed 05/29/2020 08/28/2021 1 1 Encounter Details Date Type Department Care Team Description 06/03/2020 Office Visit [facility] Katie Yang Examination of ears and hear ing (Primary Dx); [address] [facility] [place] [address] [place] [address] [place], [place] [phone] (Wo rk) Social History Tobacco Use Types [...] documented as of this encounter Progress Notes Katie Yang AU.D. - 06/03/2020 9:30 AM CDT Subjective: Narinder Lucas, 39 y.o., was seen for an audiological evaluation upon order from Trevor Obrien MD. She reports aural fullness and otaliga, primarily in her left ear. She also reports pressure in the left side of her face and issues with her left eye. She reports she had an eye exam with dryness noted in her left eye. and left side of face. She reports this has been an ongoing issue for the past few months. Her grandmother has a history of hearing loss. She denies hearing loss, tinnitus, dizziness, loud noise exposure, ear surgery or previous hearing test. Objective: Otoscopy revealed non-occluding cerumen, bilaterally. Tympanometry revealed normal ear canal volume, pressure and static admittance, bilaterally. Patient was evaluated under TDH headphones with good reliability. Pure tone audiometric testing revealed normal hearing, bilaterally with slight conductive loss at 250 Hz in the left ear. Speech medical receptionist thresholds were obtained at 0 dBHL for the right ear and 0 dBHL for the left ear. Word recognition at 50 dBHL was 100% for the right ear and at 50 dBHL was 96% for the left ear usingNU-6 wordlist. Assessment: Results indicate normal hearing sensitivity, bilaterally. Tympanometry was normal,bilaterally. Speech medical receptionist thresholds were in good agreement with the pure tone thresholds. Word recognition for both ears was considered to be excellent at a conversational level. Plan: These results were discussed with the patient. Please see Trevor Obrien MD's note from today's datefor further recommendations. documented in this encounter Plan of Treatment Not on filedocumented as of this encounter Visit Diagnoses Diagnosis Examination of ears and hearing - Primar y Other examination of ears and hearing Otalgia of left ear Otalgia, unspecified documented in this encounter Care Teams Human Resource Manager Relationship Specialty Start Date End Date Sandy Viera MD PCP - General Family Practice 07/20/19 10/29/20 [address] [address] [place] [address] documented as of this encounter
--- OUTSIDE RECORDS SUMMARY | 2021-11-07 19:39 | XMS_ITS | Encounter Summary ---
:1980 Author Organization [facility] Address [address] [place] [address] Care Team Providers Name Role Phone Sandy Viera MD Primary Care Provider Reason for Visit Reason Comments Follow-up Encounter Details Date Type Department Care Team Description 06/17/2020 Procedure Visit [facility] [place] [facility] Stephanie Patel MD Follow-up Center - Urology [address] [facility] [address] [facility] [place] [address] [phone] (Wo rk) Social History Tobacco Use Types [...] documented as of this encounter Progress Notes Setphanie Patel MD - 06/17/2020 12:00 AM CDT NAME: NARINDER LUCAS CSN: [id number] CLINIC NOTE DATE OF SERVICE: 06/17/2020 : 1980 Narinder is a very pleasant, 39-year-old woman with a history of severe overactive bladder, nocturnal enuresis. The patient underwent Botox injection to the bladder last year and had relatively good improvement in her symptoms. Patient called back in with significant discomfort with urination and abdominal pain. She underwent a urine culture that was inconclusive. She had 10-50,000 colony- forming units of multiple bacteria morphologies. The patient does have an elevated BMI of 56 and therefore was likely contaminated. The patient was still having symptoms and so she came in for cystoscopy. Postvoid residual today was 0. PROCEDURE: The 18-Malawian cystoscope was placed in the patient's urethra and then into the bladder. The bladder was surveyed. It looked good. There was no sign of any erythema or urinary tract infection. The cystoscope was removed. The urethra was examined and it was normal. Patient was given a prophylactic antibiotic. We then discussed other symptoms. Patient notes that the overactive bladder symptoms and leakage have returned. This is not too surprising given that the Botox was in October. She notes that this hasbeen going on for about 3 weeks. Unfortunately, she has ruined her new mattress and she is terribly embarrassed about this. She finds it hard to parent and it causes problems with her self esteem. ASSESSMENT: Urinary incontinence secondary to severe overactive bladder. PLAN: 1. Repeat Botox. Would like to try 150 units this time. 2. I did discuss with her mattress pads and we looked at some different options on the computer and we also discussed some different enzyme solutions that are out there to try to save her mattress to get the urine smell out so that she does not have to replace her mattress again. 3. I will have my nurse from [place] get in touch with the patient. Last time we did this in the operating room. She tolerated the cystoscopy in clinic today just fine. I think we could do the repeat Botox in clinic. We discussed the risk of urinary retention, bleeding, infection and pain. Patient understands these risks and informed consent was obtained. This procedure slightly higher risk given the patient's elevated BMI. MD PAM Del Rosario/ELAINE /[id number] documented in this encounter Plan of Treatment Not on filedocumented as of this encounter Procedures Procedure Name Priority Date/Time Associated Comments Diagnosis AUTOMATED URINALYSIS Routine 06/17/2020 3:59 PM R esults for this DIPSTICK POCT CDT procedure are in the results section. documented in this encounter Results (ABNORMAL) Urinalysis Dipstick (06/17/2020 3:59 PM CDT) [facility] Method Time Signature Glucose Urine Negative Negative 06/17/2020 [facility] Qual (mg/dL) 4:01 PM CDT [address] [facility] Bilirubin Negative Negative 06/17/2020 [facility] Urine 4:01 PM CDT [address] [facility] Ketones, Negative Negative 06/17/2020 [facility] Urine (mg/dL) 4:01 PM CDT [facility] Specific >=1.030 (A) 1.005 - 06/17/2020 [facility] [place], 1.030 4:01 PM CDT [facility] Blood, Urine Negative Neg/Trace 06/17/2020 [facility] 4:01 PM CDT [address] [facility] PH Urine 7.0 5.0 - 8.0 06/17/2020 [facility] 4:01 PM CDT [address] [facility] Protein, Negative Neg/Trace 06/17/2020 [facility] Urine Qual 4:01 PM CDT 3850 (mg/dL) LABORATORY Urobilinogen, 0.2 <2.0 06/17/2020 [facility] Urine (EU/dL) 4:01 PM CDT [address] [facility] Nitrite Urine Negative Negative 06/17/2020 [facility] 4:01 PM CDT [address] [facility] Leukocyte Negative Negative 06/17/2020 [facility] Est. 4:01 PM CDT [address] [facility] Urine Color Yellow Straw-Yellow 06/17/2020 [facility] 4:01 PM CDT [address] [facility] Urine Clarity Clear Clear 06/17/2020 [facility] 4:01 PM CDT [address] [facility] Specimen Anatomical Collection Method Collection Time Receive d Time (Source) Location / / Volume Laterality Urine 06/17/2020 3:59 PM 4:01 CDT PM CDT Stephanie Patel MD LAB_1 Performing Organization Address City/State/ZIP Code Phon e Number [facility] [address] [place] [address] [address] documented in this encounter Visit Diagnoses Diagnosis Dysuria - Primary documented in this encounter Administered Medications Inactive Administered Medications - up to 3 most recent administrations Medication Order MAR Action Action Date Dose Rate Site nitrofurantoin monohydrate Given 06/17/2020 4:15 PM CDT 100 mg macrocrystal (MACROBID) capsule 100 mg 100 mg, Oral, ONCE, On Tue06/17/20 at 1600, For 1 dose, Take with food. Modified-release capsule - not suitable for administration via feeding tube., Indications: Postoperative Infection documented in this encounter Care Teams Reports Analysis Manager Relationship Specialty Start Date End Date Sandy Viera MD PCP - General Family Practice 07/20/19 10/29/20 [address] [address] [place] [address] documented as of this encounter
--- OUTSIDE RECORDS SUMMARY | 2021-11-07 19:39 | XMS_ITS | Encounter Summary ---
:1980 Author Organization [employer] Address [address] [place] [address] Care Team Providers Name Role Phone Sandy Viera MD Primary Care Provider Reason for Visit Reason Onset Date Comments DEPRESSION Video Visit 06/06/2020 Encounter Details Date Type Department Care Team Description 06/06/2020 Telemedicine [facility] Rose Morrow, Peggy ere episode of recurrent major depressive disorder, without psychotic features (HRC) (Primary Dx); Medicine [place] MIKEY (generalized anxiety disorder); [address] [address] [facility] Morbid obesity with BMI of 50.0-59.9, ad ult (HRC); [place] [address] [place], [place] Chronic low back pain, unspe cified back pain laterality, unspecified whether sciatica present [phone] (Wo rk) Social History Tobacco Use Types [...] Progress Notes Rose Morrow, [place] - 06/06/2020 9:40 AM CDT Subjective: Today's visit with Narinder [...] bad about herself. She feels like depression has??worsened a bit after her diagnosis. She was advised to add sertraline 50mg at her appt in late March. She took it for about 2 weeks, but felt worse while on it. She thinks it made her feel mentally foggy and nauseous. She stopped taking it on 04/15. She was then started on Cymbalta 30mg in April, but took it for less than a week as it also seemed to cause nausea and she vomit ed on several occasions after taking it. She looked up the side effects online and also read severalother symptoms that people have had while taking it and got scared, so stopped taking it. She has continued with therapy and is going 1-2 times per week. She likes her counselor. She is working on changing her mindset to include more positive thoughts. She has assignments every week that she is working on. She continues to deny SI. ?? Chronic low back pain: Patient states that her low back has really been bothering her. She has trouble standing or walking for even short amounts of time due to a sharp pain in her lumbar spine. She has been doing PT, but took a few weeks off due to COVID-19. She met with PM&R on 05/13 and underwent L-spine MRI, which showed no concerning findings in the L-spine other than some age related changes. She was advised to continue the Cymbalta, which had recently been started and was given an Rx for tizanidine. She has a follow up next week. Obesity: Patient continues to struggle with her weight and binge eating. She was previously referredfor a water therapy program and loved how she felt after it. She thinks it helped her energy and mood. She is consider getting back into, but is worried about not fitting into a swimsuit. Objective: There were no vitals taken for this visit. General: WDWN female in NAD Psych: Pleasant and upbeat demeanor today Assessment/Plan: Severe episode of recurrent major depressive disorder, without psychotic features (HRC)/MIKEY (generalized anxiety disorder) (HRC) - I discussed options with patient. She has failed a few trials of SSRIs and is already on Wellbutrin. I explained the benefits of an SNRI if she is able to tolerate it in regards to depression AND chronic pain. Discussed with patient that if she can tolerate the first 1-2 weeks of the med, SEs generally get better after that and efficacy should take 4-6 weeks. - We will start with a lower dose of DULoxetine (CYMBALTA) 20 MG capsule; Take 1 Capsule by mouth daily. Take with food. - Initate ondansetron (ZOFRAN-ODT) 4 MG disintegrating tablet; Take 1 Tablet by mouth as needed for Nausea. - Continue counseling - Recheck in 4 weeks, sooner if worsening. Psychiatry referral has been placed, but patient has not been able to get in for consult. Chronic low back pain, unspecified back pain laterality, unspecified whether sciatica present (HRC)/Morbid obesity with BMI of 50.0-59.9, adult (HRC) - Emphasized the importance of continuing her PT - Start Cymbalta as above - Advised water aerobics, which should also help her mood and weight. Discussed purchasing a rash guard and larger swim trunks for more comfort. - Follow up with PM&R as planned. Clinician located at home. Patient located at [...] present documented in this encounter Care Teams Road Mixer Operator Relationship Specialty Start Date End Date Sandy Viera MD PCP - General Family Practice 07/20/19 10/29/20 [address] [place] [id number] documented as of this encounter
--- OUTSIDE RECORDS SUMMARY | 2021-11-07 19:39 | XMS_ITS | Encounter Summary ---
:1980 Author Organization [facility] Address [address] [place] [address] Care Team Providers Name Role Phone Sandy Viera MD Primary Care Provider Reason for Visit Reason Comments Follow-up Encounter Details Date Type Department Care Team Description 06/24/2020 Telemedicine [facility] Carrie Ascencio, Morbid obesity with BMI of 50.0-59.9, adult (HRC) (Primary Dx); [facility] MBChB Mixed stress and urge urinary incontinen ce; [address] (generalized anxiety disorder); [address] Binge eating disorder; [place], [place] Sev ere episode of recurrent major depressive disorder, without psychotic features (HRC); [id number] Chronic low back pain, unspecified back pain laterality, unspecified whether sciatica present; [phone] CAMRYN (obstructiv e sleep apnea) (Work) Social History Tobacco Use Types Packs/Day [...] - Inhaled Oxygen Concentration - - Weight - - Height 168.9 cm (5' 6.5) 06/24/2020 10:52 AM CDT Body Mass Index - - documented in this encounter Patient Instructions Patient InstructionsCarrie Ascencio MBChB - 06/24/2020 11:30 AM CDT Weight Management Lab Instructions- Please have these done at least 1 week prior to your next weightfollow up. Instructions for lab draws include the followin. No vitamins or supplements for 24 hours prior to the test 2. No alcohol for 24 hours prior to the test 3. You must fast (no food or fluids other than water) for 12 hours prior to the test. You may call [phone] to schedule a lab appointment; however, the labs do allow walk-in visits. documented in this encounter Progress Notes Carrie Ascencio MBChB - 06/24/2020 11:30 AM CDT Metabolic Health and Weight Management Follow up CHIEF COMPLAINT Chief Complaint Patient presents with ??? Follow-up HPI Narinder Lucas is a 39 y.o. female with chronic medical problems including depression, OCD, overactive bladder, vitamin-D deficiency , who was referred/seeks to treat the following obesity-associated medical conditions by aggressive management of weight: Obstructive sleep apnea, weight-bearing joint pain, stress incontinence. She is currently pursuing a surgical intervention for weight loss. Seen on 11/20/2019 with recorded weight of 337 lbs. Seen on 02/26/2020 with recorded weight of 353 lbs. Patient's weight history is as follows: Bariatric Weight History and Calculations Weight History Age at Onset of Obesity: 28 Preferred Weight: 150 lb Starting Weight: 335 lb Height (in): 67 Weight Calculations Excess Weight: 190 lb 8 oz Goal Weight: 144 lb 8 oz Starting BMI: 52.4858395338888 Had recent appointment with RD during which patient endorsed a continued struggle to adhere to nutritional and lifestyle modifications secondary to psychological health. Endorsed somewhat chaotic eating habits, some days not eating anything until 10:00 p.m.. Please see note dated 06/09/2020 by Ame Espinal for details. Patient's PCP has been contacted and clinic manager medicare plans to connect with patient. Endorses frustration at continued weight gain. Unable to stand for any longer than 2 minutes. Has touse a chair to wash dishes and cook. Also endorses stress of caring for autistic son. Feels unable to clean or move effectively around the house. Recent steroid spinal injections with no improvement in pain levels. Continues to work with psychologist every Tuesday (feels this is not useful) and psychiatrist (Dr Renan Wilson, in [place]) . Has a first appointment today with [facility] worker for an initial intake at 12:30. Has weekly appointment with psychology today at 2:30pm. Also has upcoming appointment with lifestyle renewal program also. Feeling worthless and helpless. Denies any self harm or suicidal ideation stating I'm not that far. Identifies son as protective element. Reports some days she does not leave the house or get out of bed. I feel like a prisoner in my house. Endorses constant pain. Previous medications for the intention of weight loss: naltrexone : side effects of nausea and diarrhea. CAMRYN: none compliant with CPAP in the past. Physical therapy : limited by lower back pain and knee pain (unable to stand for even a few minutes and affecting ADLs. Working with PM and R physical therapist at present. Contraception : none. Patient has made previous weight loss attempts: Yes [facility] Assessment: Updating Your Care Team 1. Have you been working on any lifestyle goals since your last visit?: No What is getting in the way?: back pain 4. How many hours of sleep to you get per night?: 6-7 hours 7. Do you drink sugar-sweetened beverages (regular soda or sweetened coffee or tea)?: Yes 8. What would you like to discuss today?: surgery- weight increase Post-surgical information: 5. Does the patient snack?: Neg REVIEW OF SYSTEMS: A complete 10-point ROS was negative with the exception of the following: Review of symptoms positive for the following: Fatigue Dental Problems Low Back Pain Pertinant negatives: Dizziness Headaches Excessive burping Palpations Chest Pain Nausea Shortness of Breath At Rest Shortness of Breath Walking Blurry Vision Objective: Vitals: General: Alert, oriented, NAD Respiratory: Talking in full sentences. Nonlabored breathing. Psych: Affect is flat, patient is appropriate, grooming is appropriate, -RUQ ultrasound scan 06/27/2019 : Hepatic steatosis, otherwise unremarkable. PHQ9 Scores PHQ-9 06/06/2020 05/09/2020 03/20/2020 PHQ-9 Score Total 14 20 13 Q1: Loss of Int/Pleas +++ +++ +++ Q2: Depressed mood +++ +++ +++ Q3: Sleep problems +++ +++ +++ Q4: Tired/Low Energy +++ +++ +++ Q5: Appetite change + +++ + Q6: Feelings of failure + + - Q7: Concentration Prob - + - Q8: Slow or Restless - +++ - Q9: Thought Self Harm - - - Date PHQ9 was completed - - 03/20/2020 Index Date: No date on file. ASSESSMENT/PLAN We will work together to treat the following obesity-associated medical conditions and conditions exacerbated by or contributing to weight gain by aggressive management of weight: ICD-10-CM 1. Morbid obesity with BMI of 50.0-59.9, adult ([facility]) E66.01 Insulin, Serum (10Hr Fast Recommended) Z68.43 Hgb A1c Creatinine / GFR AST ALT (SGPT) Glucose Lipid Panel and Direct LDL(If Needed) TSH 2. Mixed stress and urge urinary incontinence N39.46 3. MIKEY (generalized anxiety disorder) ([facility]) F41.1 4. Binge eating disorder F50.81 5. Severe episode of recurrent major depressive disorder, without psychotic features ([facility]) F33.2 6. Chronic low back pain, unspecified back pain laterality, unspecified whether sciatica present ([facility]) M54.5 G89.29 7. CAMRYN (obstructive sleep apnea) G47.33 The patient would like to pursue a surgical intervention for weight loss at this time. She continuesto struggle making inroads into lifestyle modification in order to become an appropriate candidate for bariatric surgery related to current mental health and continues to gain weight since starting theprogram. Depression symptoms and back pain continue to severely impact her ability to adhere to lifestyle modification. Reiterated importance of focusing on behavioral health first and foremost at this time. -The patient does have signs of emotionally dysregulated food intake and /or eating disorder is working with psychology for further evaluation of these symptoms. Has upcoming appointment with Madiha. -Nutrition: reconnect with RD -Exercise: hold off on PT referral for weight loss at present. Currently working with PT for back pain with physical medicine rehabilitation -Medications: -Patient is currently taking the following medicaton with the potential side effect of weight loss:Wellbutrin -Patient is currently taking the folllowing medications with the potential side effect for weight gain: none -Potential future medications to trial for additional weight loss include the following: , GLP-1 (no Hx of pancreatitis, thyroid cancer), Metformin, Topiramate (no history of renal calculi,glaucoma, but can worsen mood), Phentermine. -The following weight-loss medications may not be recommended for this patient: Naltrexone (intolerable GI side effects) The patient may have additional risk factors for surgery including emotionally dysregulated food intake, active depression : these areas need to be focused on currently before moving forward with the surgical process. Disposition: follow up with me in 3 months. This visit was conducted via video. Total time : 32 minutes, spent reviewing lab results and /or imaging studies, performing exam and preparing plan of care. documented in this encounter Nursing Notes Xin Ocampo RN - 06/24/2020 11:30 AM CDT Standard rooming via telephone with follow up SmartForm completed. Last seen on 02/26/2020 with recorded weight of 353 lbs. Weight History: Bariatric Weight History and Calculations Weight History Age at Onset of Obesity: 28 Preferred Weight: 150 lb Starting Weight: 335 lb Height (in): 67 Weight Calculations Excess Weight: 190 lb 8 oz Goal Weight: 144 lb 8 oz Starting BMI: [id number] Measurements Do you have a scale? NO. Patient unable to report updated weight Do you have a BP cuff? NO Eating patterns Patient is experiencing the following symptoms/problems: Back Pain, Joint Pain Medications: Compliance: YES Side effects: NO Would like to discuss: path to surgery, increase in weight since start of program. Last weight reported 353 lb, intake weight 335 lb. Provided her my direct contact number for questions. Xin Ocampo RN 10:57 AM 06/24/2020 documented in this encounter Plan of Treatment Not on filedocumented as of this encounter Results TSH (08/19/2020 2:15 PM CDT) athologist Signature TSH, Sensitive 1.53 0.30 - 08/19/2020 [facility] 4.50 10:24 PM CDT LABORATORY uIU/mL Specimen Anatomical Collection Method / Collection Time Recei adama Time (Source) Location / Volume Laterality Blood Venipuncture / 08/19/2020 2:15 08/19/2020 2:21 Unknown PM CDT PM CDT Carrie Ascencio [facility] LAB_1 Performing Organization Address City/State/ZIP Code Phon e Number [facility] [address] [place] [address] (ABNORMAL) Lipid Panel and Direct LDL(If Needed) (08/19/2020 2:15 PM CDT) [facility] gist Method Time Signature Cholesterol 224 (H) 0 - 199 08/19/2020 [place] mg/dL 3:27 PM CDT LABORATORY Triglyceride 175 (H) <=149 08/19/2020 [place] mg/dL 3:27 PM CDT LABORATORY HDL Cholesterol 43 >=40 08/19/2020 [place] mg/dL 3:27 PM CDT LABORATORY LDL, Calculated 146 (H) <130 08/19/2020 [place] mg/dL 3:27 PM CDT LABORATORY Non HDL Chol, 181 (H) <=159 08/19/2020 [place] Calculated mg/dL 3:27 PM CDT LABORATORY Cholesterol/HDL 5.2 08/19/2020 [place] Ratio 3:27 PM CDT LABORATORY Hours Fasting 12 08/19/2020 [place] 3:27 PM CDT LABORATORY Specimen Anatomical Collection Method / Collection Time Recei adama Time (Source) Location / Volume Laterality Blood Venipuncture / 08/19/2020 2:15 08/19/2020 2:20 Unknown PM CDT PM CDT Carrie Ascencio [facility] LAB_1 Performing Organization Address City/State/ZIP Code Phon e Number [place] [facility] [address] [place] [address] (ABNORMAL) Glucose (08/19/2020 2:15 PM CDT) athologist Signature Glucose 131 (H) 70 - 100 08/19/2020 [place] mg/dL 3:27 PM CDT LABORATORY Comment: The given reference range is fo r the fasting state. Non-fasting reference range for glucose is 70 - 180 mg/dL. Hours Fasting 12 08/19/2020 3:[address] [facility] Specimen Anatomical Collection Method / Collection Time Recei adama Time (Source) Location / Volume Laterality Blood Venipuncture / 08/19/2020 2:15 08/19/2020 2:20 Unknown PM CDT PM CDT Carrie Ascencio [facility] LAB_1 Performing Organization Address [facility]/ZIP Code [facility] e Number [place] [facility] [address] [place] [address] ALT (SGPT) (08/19/2020 2:15 PM CDT) athologist Signature ALT (SGPT) 29 0 - 55 U/L 08/19/2020 [place] 3:27 PM CDT LABORATORY Specimen Anatomical Collection Method / Collection Time Recei adama Time (Source) Location / Volume Laterality Blood Venipuncture / 08/19/2020 2:15 08/19/2020 2:20 Unknown PM CDT PM CDT Carrie Ascencio [facility] LAB_1 Performing Organization Address [facility]/ZIP Code [facility] e Number [place] [facility] [address] [place] [address] AST (08/19/2020 2:15 PM CDT) athologist Signature AST (SGOT) 23 10 - 40 U/L 08/19/2020 [place] 3:27 PM CDT LABORATORY Specimen Anatomical Collection Method / Collection Time Recei adama Time (Source) Location / Volume Laterality Blood Venipuncture / 08/19/2020 2:15 08/19/2020 2:20 Unknown PM CDT PM CDT Carrieginger Ascencio [facility] LAB_1 Performing Organization Address [facility]/ZIP Code Phon e Number [place] [facility] [address] [place] [address] Creatinine / GFR (08/19/2020 2:15 PM CDT) P athologist Signature Creatinine 0.60 0.55 - 08/19/2020 [place] 1.02 mg/dL 3:27 PM CDT LABORATORY GFR, Estimated >60 >60 08/19/2020 [place] mL/min/1.7 3:27 PM CDT LABORATORY 3m2 Specimen Anatomical Collection Method / Collection Time Recei adama Time (Source) Location / Volume Laterality Blood Venipuncture / 08/19/2020 2:15 08/19/2020 2:20 Unknown PM CDT PM CDT Carrieginger ByersAscencio [facility] LAB_1 Performing Organization Address [facility]/ZIP Code Phon e Number [place] [facility] [address] [place] [address] (ABNORMAL) Hgb A1c (08/19/2020 2:15 PM CDT) Analysis Performed At Patho logist Time Signature Hemoglobin A1C 5.7 (H) <=5.6 % 08/19/2020 [place] 3:45 PM CDT LABORATORY Specimen Anatomical Collection Method / Collection Time Recei adama Time (Source) Location / Volume Laterality Blood Venipuncture / 08/19/2020 2:15 08/19/2020 2:21 Unknown PM CDT PM CDT Narrative [place] [facility] - 08/19/2020 3:45 PM CDT For [...] the laboratory for further direction. Carrie Ascencio [facility] LAB_1 Performing Organization Address City/State/ZIP Code Phon e Number [place] [facility] [address] [place] [address] (ABNORMAL) Insulin, Serum (10Hr Fast Recommended) (08/19/2020 2:15 PM CDT) [facility] gist Method Time Signature Insulin, 95.9 (H) 1.9 - 08/20/2020 [facility] Serum 23.0 10:46 AM CDT [facility] uIU/mL Specimen Anatomical Collection Method / Collection Time Recei adama Time (Source) Location / Volume Laterality Blood Venipuncture / 08/19/2020 2:15 08/19/2020 2:20 Unknown PM CDT PM CDT Carrie Ascencio [facility] LAB_1 Performing Organization Address City/State/ZIP Code Phon e Number [facility] [address] [address] documented in this encounter Visit Diagnoses Diagnosis Morbid obesity with BMI of 50.0-59.9, ad ult (HRC) - Primary Mixed stress and urge urinary incontinen ce Mixed incontinence urge and stress (male )(female) MIKEY (generalized anxiety disorder) ([facility]) Generalized anxiety disorder Binge eating disorder Severe episode of recurrent major depres sive disorder, without psychotic features ([facility]) Chronic low back pain, unspecified back pain laterality, unspecified whether sciatica present CAMRYN (obstructive sleep apnea) Obstructive sleep apnea (adult) (pediatr ic) documented in this encounter Care Teams Patient Account Representative Relationship Specialty Start Date End Date Sandy Viera MD PCP - General Family Practice 07/20/19 10/29/[address] [place] [address] documented as of this encounter
--- OUTSIDE RECORDS SUMMARY | 2021-11-07 19:40 | XMS_ITS | Encounter Summary ---
:1980 Author Organization [facility] Address [address] [place] [address] Care Team Providers Name Role Phone Sandy Viera MD Primary Care Provider Reason for Visit Reason Comments SINUS PAIN/PRESSURE Encounter Details Date Type Department Care Team Description 03/17/2020 Nurse Triage [facility] Sandy Viera SINU S PAIN/PRESSURE Medicine [address] [place] [address] [place], [place] [phone] (Wo rk) Social History Tobacco Use Types [...] encounter Nursing Notes Danielle Washington RN - 03/17/2020 3:04 PM CST Spoke with pt. States that she went to get tested for COVID yesterday and found it was positive today. Is having dry cough, headaches, sore throat, and chest pain with coughing. Symptoms started on Tuesday. Has been pushing fluids. States that she is breathing fine. Denies any severe chest pain, difficulty breathing or stiff neck. Problem list reviewed as related to this call. Reason for Disposition ??? Chest pain or pressure Protocols used: CORONAVIRUS (COVID-19) DIAGNOSED OR [id number] CH PROFESSOR Delia Estrella - 03/17/2020 3:00 PM CST Symptoms Describe your symptoms (if pain, include location): Sinus pressure, body aches, dry cough, fatigue When did they start? Ongoing Additional comments (related to the above concern): Covid19 positive If a prescription is needed, patient would [...] number will end with [phone] or unknown) For urgent symptoms: Please route and transfer to: Triage Pool (high priority) For routine symptoms: Please route to: Triage Pool (only transfer if caller insists) CH PROFESSOR documented in this encounter Plan of Treatment Not on filedocumented as of this encounter Visit Diagnoses Not on filedocumented in this encounter Care Teams Solution Professional Relationship Specialty Start Date End Date Sandy Viera MD PCP - General Family Practice 07/20/19 10/29/[id number] [place] [address] documented as of this encounter
--- OUTSIDE RECORDS SUMMARY | 2021-11-07 19:40 | XMS_ITS | Encounter Summary ---
:1980 Author Organization [facility] Address [address] [place] [address] Care Team Providers Name Role Phone Sandy Viera MD Primary Care Provider Reason for Visit Reason Comments REFERRAL REQUEST Encounter Details Date Type Department Care Team Description 04/30/2020 Telephone [facility] Rose Morrow, REF ERRAL REQUEST Medicine [place] [address] [facility] [address] [place] [address] [place], [place] [phone] (Wo rk) Social History Tobacco Use Types [...] Nursing Notes Rose Morrow APRN, CNP - 05/08/2020 2:30 PM CDT Please call patient. You might need to try several times before she answers. Please put her on my schedule tomorrow for video visit follow up to discuss her questions and follow up. Sandy Viera MD - 05/01/2020 11:24 AM CDT I have not seen the patient for that concern. Please forward it to the provider who saw the patient.Thanks Chasity Hopper CMA - 05/01/2020 11:01 AM CDT Clinician Action: Input needed regarding Referral Clinician Next Step: Route to [place] to follow up and Patient IS expecting a call back fromcare team Specific Request(s): 1. Patient states provider had a specific psychologist she would like patient to see. Provider please review and advise. Angelica Jimenez - 04/30/2020 4:40 PM CDT Consult/Referral (Advise caller that care team will reach out to discuss options, referral is not guaranteed) What condition is the referral being requested for and why? psychology When were you seen last for this concern? By whom? 04/10/20 Which location and department is this referral being requested for? Psychology PN, patient states provider had a specific psychologist that she would like patient to see, patient would like this information Additional comments (related to the above concern): Is it okay to leave detailed message on your voicemail? Yes (Advise caller that the PN call back number will end with [phone] or unknown) Please route to: MAR Ortiz documented in this encounter Plan of Treatment Not on filedocumented as of this encounter Visit Diagnoses Not on filedocumented in this encounter Care Teams Beer Maker Relationship Specialty Start Date End Date Sandy Viera MD PCP - General Family Practice 07/20/19 10/29/[address] [place] [address] documented as of this encounter
--- OUTSIDE RECORDS SUMMARY | 2021-11-07 19:40 | XMS_ITS | Encounter Summary ---
:1980 Author Organization [facility] Address [address] [place] [address] Care Team Providers Name Role Phone Sandy Viera MD Primary Care Provider Reason for Visit Reason Onset Date Comments Follow-up depression No Show 01/24/2020 Video Visit 01/24/2020 Encounter Details Date Type Department Care Team Description 01/24/2020 Telemedicine [facility] Jhonny Morrow, Peggy ere episode of recurrent major depressive disorder, without psychotic features (HRC) (Primary Dx); Medicine [place] MIKEY (generalized anxiety disorder) [address] [facility] [address] [place] [address] [place], [place] [phone] (Wo rk) Social History Tobacco Use Types [...] documented as of this encounter Progress Notes Jhonny Morrow, [place]ARTINES - 01/24/2020 10:40 AM RAIL CAR MAINTENANCE MECHANIC Addended by: JHONNY MORROW on: 01/24/2020 12:36 PM Modules accepted: Level of Service, SmartSet CAR MAINTENANCE MECHANIC Jhonny Morrow APRN, CNP - 01/24/2020 10:40 AM CST Subjective: Today's visit with Narinder was conducted as a scheduled video visit. Patient is a 39-year-old female who is following up today on recently discussed depression on 01/07.See note for details. Briefly, patient was feeling severely depressed with no motivation to do anything including cook, eat, or clean her home. Her nights and days were mixed up and she was having trouble managing her ADLs. I recommended initiation of Wellbutrin XL 150 mg daily and referral to Psychiatry. She tried calling for the psychiatry appointment, but they were booked out a few months. She hasan appointment with a counselor tomorrow. For the first few days after starting the Wellbutrin, she had a mild headache, but stuck with and the headache is now resolved. She has not noticed a change inher mood or motivation. She is not feeling any worse. She continues to struggle with sleeping duringthe day and not at night. She states that it is ???completely messed up?? as she will sometimes fall asleep on the couch. She is still not eating or drinking during the day. Overall, not much of a change since we spoke last. Of note, patient has missed ???a few?? days of her antidepressant. She willoften remember it in the afternoon and is worried about taking it too late in the day. Objective: There were no vitals taken for this visit. General: Well-developed well-nourished female no acute distress. Obese body habitus. Psych: Appropriate mood and affect today. Assessment/Plan: Severe episode of recurrent major depressive disorder, without psychotic features (HRC)/MIKEY (generalized anxiety disorder) (HRC) - I stressed the importance of taking her Wellbutrin daily and advised that she try her best to takeit early so it will not further affect her sleep. - Advised continuation of current Wellbutrin XL 150mg dose for now. - Advised focusing on setting normal bedtime in bed (avoiding watching TV on couch entirely) and using her CPAP. Set normal wake time and stay out of bedroom all day, which will hopefully re-set her days and nights. - Advised proceeding with counseling appt tomorrow and to put it on a calendar so she will not forget (pt was called three times before eventually reaching her today 2 hours after original appt time) - Recheck in two weeks, sooner if worsening. Clinician located at home. Patient located at home Billing based on: Complexity. Jhonny Morrow APRN, CNP CAR MAINTENANCE MECHANIC documented in this encounter Plan of Treatment Not on filedocumented as of this encounter Visit Diagnoses Diagnosis Severe episode of recurrent major depres sive disorder, without psychotic features (HRC) - Primary MIKEY (generalized anxiety disorder) (HRC) Generalized anxiety disorder documented in this encounter Care Teams Manager Water Relationship Specialty Start Date End Date Sandy Viera MD PCP - General Family Practice 07/20/19 10/29/20 [address] [place] [address] documented as of this encounter
--- OUTSIDE RECORDS SUMMARY | 2021-11-07 19:40 | XMS_ITS | Encounter Summary ---
:1980 Author Organization [employer] Address [address] [address] Care Team Providers Name Role Phone Sandy Viera MD Primary Care Provider Reason for Visit Reason Comments Spine Lumbar Therapies (Routine) - Closed Specialty Diagnoses / Procedures Referred By Contact Refer red To Contact Diagnoses Chronic low back pain, unspecified back pain laterality, unspecified [place] [address] [address] [place] [address] Referral ID Status Reason Start Date Expiration Date Visits Requ ested Visits Authorized Closed 11/06/2019 01/05/2020 1 1 Encounter Details Date Type Department Care Team Description 11/26/2019 Office Visit [facility] Pamela Beauchamp, [place] volodymyr bilateral low Center - Physical PT back pain, Therapy [address] unspecified whether [address] [place], [place] [phone] (Primary Dx) [phone] (Wo rk) Social History Tobacco Use Types [...] encounter Progress Notes Pamela Beauchamp, PT - 11/26/2019 3:15 PM CDT Patient showed up to today's session, but immediately had to leave unexpectedly to go package pick up her son from school, therefore did not receive any treatment today. Patient was rescheduled for PT later this week. documented in this encounter Plan of Treatment Scheduled Referrals Name Type Priority Associated Diagnoses Order S chedule Physical Therapy Referral Routine Chronic low back pain, O rdered: 11/06/2019 unspecified back pain laterality, unspecified whether sciatica present documented as of this encounter Visit Diagnoses Diagnosis Chronic bilateral low back pain, unspeci fied whether sciatica present - Primary documented in this encounter Care Teams Cable Splicer Assistant Relationship Specialty Start Date End Date Sandy Viera MD PCP - General Family Practice 07/20/19 10/29/20 [address] [place] [address] documented as of this encounter
--- OUTSIDE RECORDS SUMMARY | 2021-11-07 19:40 | XMS_ITS | Encounter Summary ---
:1980 Author Organization [employer] Address [address], [place] [address] Care Team Providers Name Role Phone Sandy Viera MD Primary Care Provider Reason for Visit Reason Comments Spine Lumbar Therapies (Routine) - Closed Specialty Diagnoses / Procedures Referred By Contact Refer red To Contact Diagnoses Chronic low back pain, unspecified back pain laterality, unspecified [place] [address] [address] [place] [address] Referral ID Status Reason Start Date Expiration Date Visits Requ ested Visits Authorized Closed 11/06/2019 01/05/2020 1 1 Encounter Details Date Type Department Care Team Description 11/13/2019 Office Visit [facility] Pamela Beauchamp, Ty volodymyr bilateral low Center - Physical PT back pain, Therapy [address] [address] unspecified whether [address] [place], [place] [phone] (Primary Dx) [phone] (Wo rk) Social History Tobacco Use Types [...] documented as of this encounter Progress Notes Nito Pamela Crispin, PT - 11/13/2019 4:15 PM CDT Kimmy Molina [facility] Physical Therapy - Lumbar Spine Evaluation/Plan of Care Initial Certification Period: 11/13/2019 to 02/11/20 Referring Provider: Sandy Viera Visit Diagnosis: No diagnosis found. Precautions: morbid obesity Orders: Evaluate & treat Onset/Referral Date: 11/06/2019 SUBJECTIVE Reason for Visit: Patient presents to PT with chronic low back pain. 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 The pain is widespread throughout her back and is worst with standing and walking. Patient Therapy Goals:Pain relief. Past Medical History: Past medical history, medication, and allergies were reviewed in the electronic medical record. History pertinent to therapy includes the following. Patient Active Problem List Diagnosis ??? Vitamin D deficiency ??? Sleep apnea ??? Depression (emotion) ??? Overactive bladder ??? Morbid obesity with BMI of 50.0-59.9, adult (C) ??? Urinary frequency ??? Urinary urgency ??? Mixed stress and urge urinary incontinence Recently Experienced (Red Flags): Patient reports sweating when doing household activities, but denies all other red flag symptoms. Sweating is likely due to exertion, but did recommend mentioning to physician at her next appointment. Recently Experienced (Yellow Flags): Emotional responses (worry, fear, anxiety) Previous Treatment: massage Benefited from previous treatment: yes, short-term Pain details: Pain location: low and mid-backk Other symptoms: reports that she will be seeing ortho regarding pain in her left calf/knee Sleep interruptions: No. 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 Patient History: High Complexity: 3 or more personal factors and/or comorbidities that impact plan of care: Chronicity of symptoms, morbid obesity, yellow flags presents (fear, anxiety) OBJECTIVE ROM: Prone on elbows - no pain Difficulty extending into full prone press up due to weakness in UE's Strength: Significant weakness noted in core musculature Joint Mobility: Thoracic: Pain reproduction Lumbar: Pain reproduction Palpation/Tenderness - Left thoracic paraspinals, lumbar paraspinals Right thoracic paraspinals, lumbar paraspinals Mobility/Transfer - Guarded Gait Exam - guarded, Trendelenberg PHQ-2 Score: 6 Score >/= 3 - Recommended follow-up with Primary Care to discuss depression symptoms Patient verbalizes safety. PT - Spine, Lumbar/SI Modified Oswestry Low Back Pain Questionnaire (0-100%, 0% being best): 32 Clinical Examination: Moderate Complexity: Addressed 3 elements from body structures and functions (see above), and/or functional limitations as noted below. Today's Intervention/Charges: Physical Therapy Evaluation was completed and the patient was educated on the condition, planned therapy intervention and expectations from treatment. Therapeutic exercise x 8 minutes: -instructed in and performed the following exercises for HEP Access Code: [email or web address] URL: [email or web address] Date: 11/13/2019 Prepared by: Jaylene Beauchamp Exercises Prone Press Up on Elbows - 10 reps - 1 sets - 5 sec hold - 2x daily Standing Single Leg Stance with Unilateral Counter Support - 3 reps - 10 sec hold - 2x daily Manual therapy x 10 minutes: -thoracic and lumbar PA's GI/II for pain relief in prone and prone on elbows -soft tissue mobilization to lumbar and thoracic paraspinals Timed Code Treatment Minutes: 18 Total Treatment Minutes: 45 ASSESSMENT Therapist Impression/Summary: Patient presents with mid and low back pain likely due to core weakness. Will benefit from skilled PT for strengthening progressions in order to improve standing and walking tolerance. PT Clinical Presentation: Moderate Complexity: Evolving Clinical Presentation with changing clinical characteristics Clinical Decision Making: Moderate Complexity Recommendations/Equipment: No additional recommendations at this time Significant Impairments: Pain, Muscle tightness/decreased flexibility, Muscle weakness, Muscular imbalances, ROM Limitation Functional Limitations: difficulty with household tasks and difficulty with gait Goals/Functional Outcomes: HEP/Independent Management: Demonstrate independence with HEP and self- management following each treatment session ADL's: Perform home management tasks with ease in 8-12 weeks. Stand for at least 5 minutes without increased symptoms in 2-4 weeks. Stand for at least 10 minutes without increased symptoms in 4-6 weeks. Ambulation: Ambulate for 15 minutes without increased symptoms in 8 weeks. Barriers to Goal Achievement or Learning: other: yellow flags present Prognosis: Good PLAN Planned Intervention/Education: ADL/Self Management, Education, Gait training, Manual Therapy, Neuromuscular Re-education, Therapeutic Activities, Therapeutic Exercise Frequency: 1 x week Duration: 90 days Discharge Plan: Patient will be discharged from therapy when goals are achieved or patient plateaus in progress. Informed Consent: Patient and/or family in agreement with the care plan. Plan for Next Treatment: Progress core strengthening within tolerance. Progress time in standing both during session and for HEP as tolerated. Manual therapy as appropriate. The marine diver is completed by the therapist and the referring clinician's electronic signature certifies medical necessity for the plan above. documented in this encounter Plan of Treatment Scheduled Referrals Name Type Priority Associated Diagnoses Order S [facility] Physical Therapy Referral Routine Chronic low back pain, O rdered: 11/06/2019 unspecified back pain laterality, unspecified whether sciatica present documented as of this encounter Visit Diagnoses Diagnosis Chronic bilateral low back pain, unspeci fied whether sciatica present - Primary documented in this encounter Care Teams Distribution Dispatcher Relationship Specialty Start Date End Date Sandy Viera MD PCP - General Family Practice 07/20/19 10/29/20 [address] [place] [address] documented as of this encounter
--- OUTSIDE RECORDS SUMMARY | 2021-11-07 19:40 | XMS_ITS | Encounter Summary ---
:1980 Author Organization [facility] Address [address] [place] [address] Care Team Providers Name Role Phone Sandy Viera MD Primary Care Provider Reason for Referral Consult/Transfer Care (Routine) - Closed Specialty Diagnoses / Procedures Referred By Contact Refer red To Contact Diagnoses [place] [address] [place] [address] Referral ID Status Reason Start Date Expiration Date Visits Requ ested Visits Authorized [id number] Closed 04/09/2020 07/09/2021 1 1 Scheduling Instructions Your provider has recommended review by the RN Care Consultants. The Business Services Vice President team will review your records and contac t you if you do qualify for their services. You may call [phone] if you have an y questions. ERN VAULT CLERK Reason for Visit Reason Comments No Show Encounter Details Date Type Department Care Team Description 04/09/2020 Telephone [facility] [address] Carter Ocho[place] [address] [place] [address] [place] [address] [phone] Social History Tobacco Use Types Packs/Day Years [...] documented as of this encounter Nursing Notes Barbara Barnes RN - 04/21/2020 1:59 PM CDT I spoke to patient regarding our no show policy, patient verbalized understanding about it. She is aware that she will be discharged if she no shows again. Patient expressed concern that she forgets about her appts. Added a reminder to see if we can try to call patient a couple of days a head of time to reminder her about her appt. Barbara Barnes RN - 04/16/2020 1:00 PM CST A message was left for the patient to return our call. Please see message below. ERN VAULT CLERK Barbara Barnes RN - 04/15/2020 9:47 AM CST A message was left for the patient to return our call. Please see Kita Zamora - 04/10/2020 4:48 PM CST Can you please call patient. She called back to schedule bolivar with a different provider. Kita Arriaag 04/10/2020, 4:49 PM ERN VAULT CLERK Barbara Barnes RN - 04/09/2020 7:40 AM CST Called patient, no answer and VM if full, unable to leave a message at this time. Patient has no showed to her consult appt 3 times: 04/08/20- Dr. Ochoa 12/18/19- Dr. Ochoa 11/27/19- Dr. Ochoa Patient needs to be reminded of the no show/late cancellation policy. I have added a scheduling alert to his chart as he needs to see another provider other than Dr. Ochoa. I have closed his referral until patient and I can connect regarding our expectations for appts. I have also placed a referral to care consultants to help address the multiple no shows patient has within the organization. ERN VAULT CLERK documented in this encounter Plan of Treatment Scheduled Referrals Name Type Priority Associated Diagnoses Order S [facility] CONSULT Referral Routine No-show for appo intment Ordered: 04/09/2020 ADULT (AMB) documented as of this encounter Visit Diagnoses Diagnosis No-show for appointment - Primary documented in this encounter Care Teams Physical Integration Practitioner Relationship Specialty Start Date End Date Sandy Viera MD PCP - General Family Practice 07/20/19 10/29/20 [address] [address] [place] [address] documented as of this encounter
--- OUTSIDE RECORDS SUMMARY | 2021-11-07 19:40 | XMS_ITS | Encounter Summary ---
:1980 Author Organization [employer] [facility] Address [address] [address] Care Team Providers Name Role Phone Sandy Viera MD Primary Care Provider Reason for Visit Reason Comments Spine Lumbar Encounter Details Date Type Department Care Team Description 01/07/2020 Office Visit [facility] Pamela Beauchamp Chro volodymyr bilateral low Center - Physical PT back pain, Therapy [address] unspecified whether [address] [place], [place] [phone] (Primary Dx) [phone] (Wo rk) Social History Tobacco Use Types [...] encounter Progress Notes Pamela Beauchamp, PT - 01/07/2020 3:15 PM CST [facility] Physical Therapy Progress Note Visit Number: 5 Initial Certification Period: 11/13/2019 to 02/11/20 Referring Provider: Sandy Viera Visit Diagnosis: 1. Chronic bilateral low back pain, unspecified whether sciatica present (HRC) Precautions: morbid obesity SUBJECTIVE: Reports that her back and both knees are very sore today. OBJECTIVE Current Objective Findings: Ambulation: increased spinal lordosis, Trendelenberg Significant weakness noted in core & LE musculature Treatment/Education Today: Therapeutic exercise x 23 minutes: -NuStep x 6 minutes -gastroc stretch at wall, 2 x 30 sec hold, added to HEP -seated march x 10, cued to go slowly to better activate core, added to HEP -seated long arc quad x 10, cued to hold at top, added to HEP -seated toe taps x 10, added to HEP -verbal review of HEP/POC moving forward Therapeutic Activities x 8 minutes: -discussed importance of increasing water intake throughout the day -discussed importance of increasing movement throughout the day even if just around the house Timed Code Treatment Minutes: 31 Total Treatment Minutes: 31 Current Home Exercise Program List: Access Code: [email or web address] URL: [email or web address] Date: 01/07/2020 Prepared by: Jaylene Beauchamp Exercises Squat at Table - 10 reps - 1 sets - 5 sec hold - 2-3x daily Lunge with Counter Support - 10 reps - 1 sets - 5 sec hold - 2-3x daily Gastroc Stretch on Wall - 2 reps - 30 sec hold - 2-3x daily Seated March - 3x daily Seated Long Arc Quad - 3x daily Seated Toe Taps - 3x daily ASSESSMENT/PROGRESS TOWARD GOALS: Reported good symptom relief following NuStep today. Understands the importance of increasing fluid intake throughout the day. Initiated seated exercises in order to improve compliance with a HEP and incorporate more movement into her days which should help with back and knee pain. Functional Goals/Outcomes: HEP/Independent Management: Demonstrate independence with HEP and self- management following each treatment session ADL's: Perform home management tasks with ease in 8-12 weeks. Stand for at least 5 minutes without increased symptoms in 2-4 weeks. Stand for at least 10 minutes without increased symptoms in 4-6 weeks. Ambulation: Ambulate for 15 minutes without increased symptoms in 8 weeks. PLAN: Work on finding core musculature with exercise. NuStep. General LE strengthening. NE ARCHITECT documented in this encounter Plan of Treatment Not on filedocumented as of this encounter Visit Diagnoses Diagnosis Chronic bilateral low back pain, unspeci fied whether sciatica present - Primary documented in this encounter Care Teams Chip Tester Relationship Specialty Start Date End Date Sandy Viera MD PCP - General Family Practice 07/20/19 10/29/20 [address] [place] [address] documented as of this encounter
--- OUTSIDE RECORDS SUMMARY | 2021-11-07 19:40 | XMS_ITS | Encounter Summary ---
:1980 Author Organization [facility] Address [address] [place] [address] Care Team Providers Name Role Phone Sandy Viera MD Primary Care Provider Reason for Visit Reason Comments ITCHING, SKIN Encounter Details Date Type Department Care Team Description 03/01/2020 Nurse Triage [facility] Kirk Viera MD ITCHING, SKIN Medicine [address] [facility] [address] [place], [place] [id number] [place], [place] [id number] [phone] Social History Tobacco Use Types Packs/Day Years [...] documented as of this encounter Nursing Notes Lesa Dow RN - 03/01/2020 3:10 PM CST Reason for Disposition ? ? [1] Cause unknown AND [2] present > 7 days Protocols used: ITCHING - [id number]-MV Spoke with patient states itching both breasts nipple area. Skin is flakey like dry and going on formonths. Declines lotions, Hydrocortisone because of chemicals. Drinks very little water maily Coke on bottle a day. Suggested video visit with PCP and declines. Wants in person visit. Scheduled with associate of PCP 03/04/2020. Patient agrees. Problem list and allergies reviewed. RIDER Jany Mcdonald - 03/01/2020 2:44 PM CST Symptoms Describe your symptoms (if pain, include location): Skin irritation, itching/ breast When did they start? Few months ago Additional comments (related to the above concern): If a prescription is needed, patient would [...] Triage Pool (only transfer if caller insists) RIDER documented in this encounter Plan of Treatment Not on filedocumented as of this encounter Visit Diagnoses Not on filedocumented in this encounter Care Teams Glass Bulb Machine Adjuster Relationship Specialty Start Date End Date Sandy Viera MD PCP - General Family Practice 07/20/19 10/29/20 [address] [address] [place] [address] documented as of this encounter
--- OUTSIDE RECORDS SUMMARY | 2021-11-07 19:40 | XMS_ITS | Encounter Summary ---
:1980 Author Organization [facility] Address [address] [place] [address] Care Team Providers Name Role Phone Sandy Viera MD Primary Care Provider Reason for Visit Reason Comments Spine Lumbar Encounter Details Date Type Department Care Team Description [facility]/11[facility], Chronic bilateral low - Physical Therapy PT back pain, unspecified [address] [facility] [address] [place] [address] [place] [address] present (Primary Dx) [phone] (Wo rk) Social History Tobacco Use Types [...] encounter Progress Notes Pamela Beauchamp, PT - 02/11/2020 3:15 PM CST [facility] Physical Therapy Progress Note Visit Number: 8 Initial Certification Period: 11/13/2019 to 02/11/20 Referring Provider: Sandy Viera Visit Diagnosis: 1. Chronic bilateral low back pain, unspecified whether sciatica present (HRC) Precautions: morbid obesity SUBJECTIVE: Back pain is overall better, but a little sore today. Of note, patient was 25 minutes late to appointment. OBJECTIVE Current Objective Findings: Ambulation: increased spinal lordosis, Trendelenberg Significant weakness noted in core & LE musculature Treatment/Education Today: Therapeutic activity x 15 minutes: -NuStep level 4 x 11 minutes -verbal review of HEP with focus on squats and lunges Therapeutic Activity x 8 minutes: -reviewed importance of breaking up household tasks focusing on just one at a time to improve tolerance -review of TNE concepts that pain does not mean harm Timed Code Treatment Minutes: 23 Total Treatment Minutes: 23 Current Home Exercise Program List: Access Code: [email or web address] Exercises Squat at Table - 10 reps [...] daily Seated Toe Taps - 3x daily Supine Diaphragmatic Breathing - 10 reps - 3 sets - 5 sec hold - 1-2x daily ASSESSMENT/PROGRESS TOWARD GOALS: Reported decreased low back symptoms after NuStep today. Stressed the importance of consistency withhome exercise program. Functional Goals/Outcomes: HEP/Independent Management: Demonstrate independence with [...] musculature with exercise. NuStep. General LE strengthening. Education on healthier lifestyle to help with depression and movement goals. YARD WORKER documented in this encounter Plan of Treatment Not on filedocumented as of this encounter Visit Diagnoses Diagnosis Chronic bilateral low back pain, unspeci fied whether sciatica present - Primary documented in this encounter Care Teams [employer] English Teacher Relationship Specialty Start Date End Date Sandy Viera MD PCP - General Family Practice 07/20/19 10/29/20 [address] [place] [address] documented as of this encounter
--- OUTSIDE RECORDS SUMMARY | 2021-11-07 19:40 | XMS_ITS | Encounter Summary ---
:1980 Author Organization [employer] Address [address] [place] [address] Care Team Providers Name Role Phone Sandy Viera MD Primary Care Provider Reason for Visit Reason Comments DEPRESSION Encounter Details Date Type Department Care Team Description 02/07/2020 Nurse Triage [facility] Kirk Viera MD DEPRESSION Medicine [address] [place], [place] [id number] [place], [place] [id number] [place] [address] [phone] Social History Tobacco Use Types Packs/Day Years [...] documented as of this encounter Nursing Notes Toyin Mendez RN - 02/07/2020 1:08 PM CST Spoke to patient regarding persisting depression with exacerbation of symptoms the past week. Symptoms include fatigue, isolating in room, poor appetite/intake. Some days are better than others; some days patient is unable to take care of self or home and doesn't have the energy to cook. Reports celeste salinas does not understand why patient is behaving this way. Patient's mother is supportive of helping patient through her feelings, but is not always at home. Denies any thought or intent of self-harm, reports feeling safe. Further reports that Wellbutrin XL started 01/08/20 is not helpful and voices wanting to discontinue. Appointment rescheduled for this afternoon to discuss. Patient verbalizes that sheplans to keep appointment. Appt. notes updated. Advised to call back with any further needs or questions, or if she would like to speak with a nurse. Patient agrees. Problem list reviewed as related to this call. Reason for Disposition ??? Depression is worsening (e.g.,sleeping poorly, less able to do activities of daily living) Protocols used: [id number] ING LATHE TENDER documented in this encounter Plan of Treatment Not on filedocumented as of this encounter Visit Diagnoses Not on filedocumented in this encounter Care Teams Advertising Operations Coordinator Relationship Specialty Start Date End Date Sandy Viera MD PCP - General Family Practice 07/20/19 10/29/20 [address] [place] [address] documented as of this encounter
--- OUTSIDE RECORDS SUMMARY | 2021-11-07 19:40 | XMS_ITS | Encounter Summary ---
:1980 Author Organization [employer] Address [address] [address] Care Team Providers Name Role Phone Sandy Viera MD Primary Care Provider Reason for Visit Reason Comments Spine Lumbar Encounter Details Date Type Department Care Team Description 12/31/2019 Office Visit [facility] Pamela Beauchamp Chro volodymyr bilateral low Center - Physical PT back pain, Therapy [address] unspecified whether [address] [place], [place] [phone] (Primary Dx) [phone] (Wo rk) Social History Tobacco Use Types [...] as of this encounter Progress Notes Pamela Beauchmap, PT - 12/31/2019 3:15 PM CST [facility] Physical Therapy Progress Note Visit Number: 4 Initial Certification Period: 11/13/2019 to 02/11/20 Referring Provider: Sandy Viera Visit Diagnosis: 1. Chronic bilateral low back pain, unspecified whether sciatica present (HRC) Precautions: morbid obesity SUBJECTIVE: Patient would like to focus on strengthening her legs to help her be able to get up/down from the floor. Reports that her back has been feeling much better. OBJECTIVE Current Objective Findings: Ambulation: increased spinal lordosis, Trendelenberg Significant weakness noted in core & LE musculature Treatment/Education Today: Therapeutic activities x 8 minutes: -educated regarding arthritis and how to manage this Therapeutic exercise x 15 minutes: -squats at countertop, small-range, wide base of support, added to HEP -lunge with bilateral UE support using chair and countertop, small-range, alternate legs, added to HEP -verbal review of HEP/POC moving forward Timed Code Treatment Minutes: 23 Total Treatment Minutes: 23 Current Home Exercise Program List: Access Code: [email or web address] URL: [email or web address] Date: 12/31/2019 Prepared by: Jaylene Beauchamp Exercises Squat at Table - 10 reps - 1 sets - 5 sec hold - 2-3x daily Lunge with Counter Support - 10 reps - 1 sets - 5 sec hold - 2-3x daily ASSESSMENT/PROGRESS TOWARD GOALS: Tolerated small-range squats and lunges well today with significant UE support in order to work towards her goal of getting down/up from the floor. Functional Goals/Outcomes: HEP/Independent Management: Demonstrate independence with [...] musculature with exercise. NuStep. General LE strengthening. OR PROGRAM MANAGER documented in this encounter Plan of Treatment Not on filedocumented as of this encounter Visit Diagnoses Diagnosis Chronic bilateral low back pain, unspeci fied whether sciatica present - Primary documented in this encounter Care Teams Shift Nurse Manager Relationship Specialty Start Date End Date Sandy Viera MD PCP - General Family Practice 07/20/19 10/29/20 [address] [place] [address] documented as of this encounter
--- OUTSIDE RECORDS SUMMARY | 2021-11-07 19:40 | XMS_ITS | Encounter Summary ---
:1980 Author Organization [facility] [employer] Address [address] [place] [address] Care Team Providers Name Role Phone Sandy Viera MD Primary Care Provider Reason for Visit Reason Onset Date Comments Follow-up depression Video Visit 02/21/2020 Encounter Details Date Type Department Care Team Description 02/21/2020 Telemedicine [facility] Rose Morrow Sev ere episode of recurrent major depressive disorder, without psychotic features (HRC) (Primary Dx); Medicine [place] MIKEY (generalized anxiety disorder); [address] [address] [place] Pre-diabetes; [place] [address] [place], [place] Binge eating disorder [phone] (Wo rk) Social History Tobacco Use Types [...] Progress Notes Rose Morrow, [place] - 02/21/2020 2:20 PM CST Subjective: Today's visit with Narinder was conducted as a scheduled video visit. Patient is a 39-year-old female who is following up today on recently discussed depression. ??I met her on 01/07, see note for details. ??Briefly, patient was feeling severely depressed with no motivation to do anything including cook, eat, or clean her home. ??Her nights and days were mixed up and shewas having trouble managing her ADLs. ??I recommended initiation of Wellbutrin XL 150 mg daily and referral to Psychiatry. ??She tried calling for the psychiatry appointment, but they were booked out afew months. ??She had an intake appt with a counselor a few weeks ago and is awaiting call back to schedule appt. ??For the first few days after starting the Wellbutrin, she had a mild headache, but stuck with and the headache is now resolved. ??At her appointment two weeks ago, I recommended titrating to 300mg daily. Patient has started to notice some improvement. She reports improved energy and motivation. She is now able to tackle multiple tasks per day (cooking and cleaning) compared to just onetask per day last visit and no tasks the visit prior to that. She feels physically better. She is less anxious and feels more calm. She feels like self esteem has improved and she is better able to handle negative comments. She is still wanting to isolate herself twice per week. She wonders when this will improve. Appetite is still very low and she does not want to eat. She ate two pieces of pizza all day yesterday. She denies binging on food, but has a history of binge eating disorder. She is sleeping at night now and avoiding napping during the day. She is consistently using her CPAP. Overall, she is feeling better, but is not where she wants to be. Objective: There were no vitals taken for this visit. General: WDWN female in NAD. Obese. Psych: Pleasant and appropriate affect. Smiling and seems happy today. Assessment/Plan: Severe episode of recurrent major depressive disorder, without psychotic features (HRC)/MIKEY (generalized anxiety disorder) (HRC) - Increase buPROPion (WELLBUTRIN XL) 150 MG 24 hour release tablet; Take 3 Tablets by mouth daily. - Discussed side effects that may happen with increase in dose. - Advised that she contact her counselor or schedule new appt with PN provider. - Continue Vitamin D - Again advised that she try her best to eat when her son eats so that she is eating regular meals throughout the day - Recheck in 4 weeks, sooner if worsening. Pre-diabetes - Hgb A1C; Future Binge eating disorder: Patient might benefit from consult with Gill once MH stabilized. Clinician located at home. Patient located at home Billing based on: Complexity. Rose Morrow APRN, CNP OPERATOR PROGRAMMER documented in this encounter Plan of Treatment Not on filedocumented as of this encounter Visit Diagnoses Diagnosis Severe episode of recurrent major depres sive disorder, without psychotic features (HRC) - Primary MIKEY (generalized anxiety disorder) (HRC) Generalized anxiety disorder Pre-diabetes Other abnormal glucose Binge eating disorder documented in this encounter Care Teams Educational Director Relationship Specialty Start Date End Date Sandy Viera MD PCP - General Family Practice 07/20/19 10/29/20 [address] [place] [address] documented as of this encounter
--- OUTSIDE RECORDS SUMMARY | 2021-11-07 19:40 | XMS_ITS | Encounter Summary ---
:1980 Author Organization [employer] Address [address] [place] [address] Care Team Providers Name Role Phone Sandy Viera MD Primary Care Provider Reason for Visit Reason Onset Date Comments MEDICATION CHECK Depression Follow-up COVID positive on 11/27 Video Visit 03/27/2020 Encounter Details Date Type Department Care Team Description 03/27/2020 Telemedicine [facility] Rose Morrow, COV ID-19 (Primary Dx); Medicine [place] Moderate episode of recurrent major depr essive disorder (HRC); [address] JENSEN (generalized anxiety disorder); [place] [address] [place], [place] Pre-diabetes [phone] (Wo rk) Social History Tobacco Use Types [...] Progress Notes Rose Morrow, [place] - 03/27/2020 2:20 PM CST Subjective: Today's visit with Narinder was conducted as a scheduled video visit. She is following up on multiple things. COVID-19: Patient was diagnosed with COVID-19 with Vault test on 03/16/2020 (reviewed documentation through video visit). Initial symptoms began the day prior with nasal congestion, fatigue, headache, and chills. At our last visit a week ago, she was experiencing a dry cough, muscle aches, loss of smell/taste, nausea, dizziness, and fatigue. Symptoms were stable. However, 2 days after our appt, patientwent to ER due to onset of chest pain with deep breaths and feeling winded. She underwent CXR (negative), troponin (neg), d-dimer (neg), BMP (wnl), and CBC (wnl). She was given Decadron and anti-nauseamedications. Her O2 was stable and vitals/physical exam were reassuring so she was discharged home. P atient states that since then, she has noticed resolution of fever, chills, headache, and sore throat. She still cannot taste or smell. She is still quite nauseous and has little appetite. She has onlybeen tolerating small amounts of food. She has intermittent diarrhea, mostly after eating. Of note, she has not felt like cooking, so has mostly been bringing her [employer]. She continues to feel vague pressure/discomfort in upper chest when she takes a big breath, but this is not worsening. She denies cough. She has been laying in bed and not getting up to move. She has stopped taking Tylenol. She is not taking ibuprofen. She has not picked up the prescription for ondansetron given to her at the hospital. She did not like the taste of the dissolvable tablets and felt like they made her more nauseous. Depression: Prior to patient's COVID-19 diagnosis, she was demonstrating some improvement in her depression on recently initiated Wellbutrin. We had titrated to Wellbutrin XL 450mg daily. She was finding it easier to motivate and do things around the house and was feeling less bad about herself. She feels like depression has worsened since COVID-19 and the isolation she feels staying in her room. Shehas not seen a counselor. Objective: There were no vitals taken for this visit. General: WDWN female in NAD. Obese body habitus. Does not appear dyspneic. Not coughing Psych: Pleasant and appropriate affect today Assessment/Plan: COVID-19 - Discussed importance of eating small amounts of bland foods (avoid [employer]) and increase hydration. - Initiate ondansetron (ZOFRAN) 4 MG tablet; Take 1 Tablet by mouth every 8 hours as needed for Nausea. New Rx given for regular tablet rather than disintegrating tablet. - Continue close monitoring. Red flag symptoms discussed and advised re- evaluation of symptoms are worsening. Moderate episode of recurrent major depressive disorder (HRC)/MIKEY (generalized anxiety disorder) (HRC) - Discussed with patient that she will likely need to be on more than one medication for treatment of her depression. - Continue Wellbutrin XL 450mg daily. - Once she is feeling back to baseline healthwise (or at least is no longer nauseous), advised her to start sertraline (ZOLOFT) 50 MG tablet; Take 1 Tablet by mouth daily. - Discussed black box warning: Including worsening of depression or thoughts of suicide which may occur as a result of the SSRI and often occur at initiation or with [...] Patient wishes to proceed. Prescription provided. - Restart counseling - Recheck in 2 weeks, sooner if worsening. Clinician located at home. Patient located at home Billing based on: [place] Morrow APRN, CNP L INSTALLER documented in this encounter Nursing Notes Erlinda Lei CMA - 03/27/2020 2:20 PM CST Patient unable to complete PHQ-9 and MIKEY-7 due to her COVID positive diagnosis. She wasn't able to verbalize her feelings but stated that she felt like she was in long term. L INSTALLER documented in this encounter Plan of Treatment Not on filedocumented as of this encounter Visit Diagnoses Diagnosis COVID-19 - Primary Moderate episode of recurrent major depr essive disorder (HRC) MIKEY (generalized anxiety disorder) (HRC) Generalized anxiety disorder Pre-diabetes Other abnormal glucose documented in this encounter Care Teams Manager Concrete Relationship Specialty Start Date End Date Sandy Viera MD PCP - General Family Practice 07/20/19 10/29/20 [address] [place] [address] documented as of this encounter
--- OUTSIDE RECORDS SUMMARY | 2021-11-07 19:40 | XMS_ITS | Encounter Summary ---
:1980 Author Organization [facility] Address [address] [place] [address] Care Team Providers Name Role Phone Sandy Viera MD Primary Care Provider Reason for Visit Procedure/Equipment (Routine) - Incomplete Specialty Diagnoses / Procedures Referred By Contact Refer red To Contact Diagnoses Pain in both knees, unspecified chronicity Aurelio Neil MD Procedures XR Knee Rt 1-2 Views Comparison [address] [place] [address] Referral ID Status Reason Start Date Expiration Date Visits V isits Requested Authorized [id number] Incomplete 11/14/2019 02/12/2021 1 1 Encounter Details Date Type Department Care Team Description 11/14/2019 Ancillary Procedure [place] Jesse Neil, Pain in both knees, [place] [address] Aurelio Roa MD unspecified Radiology [address] [place] chronicity [address] [place], [place] [address] [address] [place], [place] [phone] (Work) [phone] Social History Tobacco Use Types Packs/Day Years [...] Name Priority Date/Time Associated Diagnosis Comme nts XR KNEE RT 1-2 VIEWS Routine 11/14/2019 3:33 PM Pain in both k nees, Results for this COMPARISON CDT unspecified procedure are i n chronicity the results section. documented in this encounter Results XR Knee Rt 1-2 Views Comparison (11/14/2019 3:33 PM CDT) Anatomical Region Laterality Modality Lower Extremity, Knee Digital Radiograph y Specimen (Source) Anatomical Collection Method Collection Time Re ceived Time Location / / Volume Laterality 11/14/2019 3:21 PM CDT Impressions 11/14/2019 3:45 PM CDT COMPARISON: ??None. FINDINGS: ??There is mild medial compart ment narrowing in the left knee. No significant joint effusion or evidence of fracture in the left knee. [place] views of both patella demonstrate no significant joint space narrowing or other osseous a bnormality. Procedure Note Rakesh Gentile MD - 11/14/2019 IMPRESSION COMPARISON: None. FINDINGS: There is mild medial compartme nt narrowing in the left knee. No significant joint effusion or evidence of fracture in the left knee. [place] views of both patella demonstrate no significant joint space narrowing or other osseous abnormality. Aurelio Neil MD RAD GD XR Knee Lt 3 Views (11/14/2019 3:31 PM CDT) Anatomical Region Laterality Modality Lower Extremity, Knee Digital Radiograph y Specimen (Source) Anatomical Collection Method Collection Time Re ceived Time Location / / Volume Laterality 11/14/2019 3:21 PM CDT Impressions 11/14/2019 3:45 PM CDT COMPARISON: ??None. FINDINGS: ??There is mild medial compart ment narrowing in the left knee. No significant joint effusion or evidence of fracture in the left knee. [place] views of both patella demonstrate no significant joint space narrowing or other osseous a bnormality. Procedure Note Rakesh Gentile MD - 11/14/2019 IMPRESSION COMPARISON: None. FINDINGS: There is mild medial compartme nt narrowing in the left knee. No significant joint effusion or evidence of fracture in the left knee. [place] views of both patella demonstrate no significant joint space narrowing or other osseous abnormality. Aurelio Neil MD RAD GD documented in this encounter Visit Diagnoses Diagnosis Pain in both knees, unspecified chronici ty Pain in both knees, unspecified chronici ty documented in this encounter Care Teams Boat Wrapper Relationship Specialty Start Date End Date Sandy Viera MD PCP - General Family Practice 07/20/19 10/29/20 [address] [address] [place] [address] documented as of this encounter
--- OUTSIDE RECORDS SUMMARY | 2021-11-07 19:40 | XMS_ITS | Encounter Summary ---
:1980 Author Organization [facility] Address [address] [place] [address] Care Team Providers Name Role Phone Sandy Viera MD Primary Care Provider Reason for Visit Reason Onset Date Comments DEPRESSION Video Visit 02/07/2020 Encounter Details Date Type Department Care Team Description 02/07/[address] [facility] Rose Morrow, Peggy calle episode of recurrent major depressive disorder, without psychotic features (HRC) (Primary Dx); Medicine [place] Morbid obesity with BMI of 50.0-59.9, ad ult (HRC); [address] [address] [place] Binge eating disorder; [place] [address] [place], [place] CAMRYN (obstructive sleep apnea ) [phone] (Wo rk) Social History Tobacco Use Types [...] Progress Notes Rose Morrow, [place] - 02/07/2020 2:20 PM CST Subjective: Today's visit with Narinder was conducted as a scheduled video visit. Patient is a 39-year-old female who is following up today on recently discussed depression. I met her on 01/07, see note for details. Briefly, patient was feeling [...] were booked out a few months. She had an intake appt with a counselor last week and is awaiting call back to schedule appt. For the first few days after starting the Wellbutrin, she had a mild headache, but stuck with and the headache is now resolved. She has not noticed a change in her mood. She continues to struggle with motivation, but now rather than doing nothing, she is tackling one task per day. For example, some days she feels like cooking and some days she cleans, but so far, not both. She is not feeling any worse. Her sleep has been more regulated as she is sleeping better at night and not as much during the day. She called her CPAP store and was able to get a new mask sent to her and has used that. She is still not eating or drinking during the day. She has a history of binge eating, but does not feel like she is overeating. Of note, patient has continue to miss ???a few?? days of her antidepressant. She willoften remember it in the afternoon and is worried about taking it too late in the day. Of note, patient missed her first appt of the day, but was able to reschedule with me later in the day. Objective: General: WDWN female in NAD Psych: Appropriate mood and affect PHQ-9 02/07/2020 01/08/2020 11/06/2019 PHQ-9 Score Total 16 19 16 Q1: Loss of Int/Pleas +++ +++ +++ Q2: Depressed mood +++ +++ +++ Q3: Sleep problems +++ +++ +++ Q4: Tired/Low Energy +++ +++ +++ Q5: Appetite change +++ +++ +++ Q6: Feelings of failure + +++ + Q7: Concentration Prob - + - Q8: Slow or Restless - - - Q9: Thought Self Harm - - - Date PHQ9 was completed 02/07/2020 01/08/2020 - MIKEY-7 07/21/2019 Feeling nervous 0 Can't stop worrying 0 Worrying too much 0 Trouble relaxing 0 Restlessness 0 Easily annoyed 0 Feeling afraid 1 Total score 1 Assessment/Plan: Severe episode of recurrent major depressive disorder, without psychotic features (HRC) - I explained to patient that medication is only effective if it is taken daily. Encouraged her to get in the habit of taking her dose first thing in the morning and potentially having her helpher remember. - Increase buPROPion (WELLBUTRIN XL) 150 MG 24 hour release tablet; Take 2 Tablets by mouth daily. - Continue counseling - Discussed self-care strategies and importance of getting into regular eat/sleep routines. - Recheck in 2 weeks, appt made. Morbid obesity with BMI of 50.0-59.9, adult (HRC)/Binge eating disorder: Consider referral to [facility] at next visit if appetite/eating has not improved with improvement in depression. CAMRYN (obstructive sleep apnea): Advised pt to wear CPAP nightly. Other orders - Vitamin D, Ergocalciferol, 1.25 MG (78697 UT) CAPS; Take 1 Capsule by mouth once a week. - Multiple Vitamins-Iron (MULTIVITAMINS-IRON) tablet; Take 1 Tablet by mouth daily. Clinician located at home. Patient located at home Billing based on: Complexity. Rose Morrow APRN, CNP O GENERATION SUPERVISOR documented in this encounter Plan of Treatment Not on filedocumented as of this encounter Visit Diagnoses Diagnosis Severe episode of recurrent major depres sive disorder, without psychotic features (HRC) - Primary Morbid obesity with BMI of 50.0-59.9, ad ult (HRC) Binge eating disorder CAMRYN (obstructive sleep apnea) Obstructive sleep apnea (adult) (pediatr ic) documented in this encounter Care Teams Trombone Slide Assembler Relationship Specialty Start Date End Date Sandy Viera MD PCP - General Family Practice 07/20/19 10/29/[id number] [place] [address] [place] [address] documented as of this encounter
--- OUTSIDE RECORDS SUMMARY | 2021-11-07 19:40 | XMS_ITS | Encounter Summary ---
:1980 Author Organization [facility] Address [address] [place] [address] Care Team Providers Name Role Phone Sandy Viera MD Primary Care Provider Reason for Visit Reason Onset Date Comments Video Visit 04/10/2020 Encounter Details Date Type Department Care Team Description 04/10/2020 Telemedicine [facility] Rose Morrow Chr onic low back pain, unspecified back pain laterality, unspecified whether sciatica present (Primary Dx); Medicine [place] MIKEY (generalized anxiety disorder); [address] [address] [place] Moderate episode of recurrent major depr essive disorder (HRC); [place] [address] [place], [place] COVID-19 [address] (Wo rk) Social History Tobacco Use Types [...] Progress Notes Rose Morrow, [place] - 04/10/2020 2:40 PM CST Subjective: Today's visit with Narinder [...] to add sertraline 50mg at her appt two weeks ago. She has picked it up from the pharmacy, but has not started it yet. She metwith a new counselor earlier today and will be starting therapy. COVID-19: Patient was diagnosed with COVID-19 with Vault test on 03/16/2020 (reviewed documentation through video visit). Initial symptoms began the day prior with nasal congestion, fatigue, headache, and chills. She then developed a dry cough, muscle aches, loss of smell/taste, nausea, dizziness, and fatigue. Patient then went to ER due to onset [...] chills, headache, and sore throat. Appetite has slowly improved. However, she still has shortness of breath when climbing stairs. No dyspnea at rest. No chest pain. She still cannot taste or smell. She wonders whenthis will improve. She is still quite nauseous and has little appetite. Chronic low back pain: Patient states that her low back has really been bothering her. She has trouble standing or walking for even short amounts of time due to a sharp pain in her lumbar spine. She has been doing PT, but took a few weeks off due to COVID-19. She was supposed to meet with PM&R two days ago, but no-showed. Patient states that she did not remember she had an appt then. She has missed two prior appts as well, so can no longer schedule with one of the PM&R physicians. Objective: There were no vitals taken for this visit. General: WDWN female in NAD. Does not appear dyspneic. Psych: Appropriate mood and affect Assessment/Plan: MIKEY (generalized anxiety disorder) (HRC)/Moderate episode of recurrent major depressive disorder (HRC) - Emphasized the importance of taking her medication regularly. She will start the sertraline this week. Continue current dose of Wellbutrin. - Continue counseling. - Recheck in 3 weeks, sooner if worsening. COVID-19 - Discussed that ongoing shortness of breath is quite common with COVID-19. Her ER work up is reassuring and her symptoms have improved since then. I recommended re-evaluation of shortness of breath should worsen or she develops new chest pain. Chronic low back pain, unspecified back pain laterality, unspecified whether sciatica present (HRC) - I discussed her missed appts with PM& and the importance of keeping better track of things on a calendar, which I have encouraged her to purchase multiple times. - Advised that she restart PT - Reschedule with different PM&R provider. Clinician located at home. Patient located at other [facility] Billing based on: Time Total time for the visit was 30 minutes including, but not limited to, [id number] time spent reviewing records, counseling, and coordination of care. Rose Morrow APRN, NEW PRESIDENT FOR PHILANTHROPY documented in this encounter Plan of Treatment Not on filedocumented as of this encounter Visit Diagnoses Diagnosis Chronic low back pain, unspecified back pain laterality, unspecified whether sciatica present - Primary MIKEY (generalized anxiety disorder) (HRC) Generalized anxiety disorder Moderate episode of recurrent major depr essive disorder (HRC) COVID-19 documented in this encounter Care Teams Mixing And Dispensing Supervisor Relationship Specialty Start Date End Date Sandy Viera MD PCP - General Family Practice 07/20/19 10/29/20 [id number] [address] [place] [id number] documented as of this encounter
--- OUTSIDE RECORDS SUMMARY | 2021-11-07 19:40 | XMS_ITS | Encounter Summary ---
:1980 Author Organization [employer] Address [address] [place] [address] Care Team Providers Name Role Phone Sandy Viera MD Primary Care Provider Reason for Visit Reason Comments Follow-up, NOS Encounter Details Date Type Department Care Team Description 11/13/2019 Nursing Visit Kimmy Molina Nurse, [facility] Uro Urinary urge [facility] [address] (Primary Dx ) Urology [address] [place] [address] Social History Tobacco Use Types Packs/Day Years [...] documented as of this encounter Nursing Notes Shreya Peña LPN - 11/13/2019 3:00 PM CDT Pt came in for ua/pvr. PVR was 102 and urine dip was done. documented in this encounter Plan of Treatment Scheduled Orders Name Type Priority Associated Diagnoses Order S chedule POCT Automated Point of Care Routine Urinary urgency Ordered: 11/13/2019 Urinalysis Dipstick documented as of this encounter Procedures Procedure Name Priority Date/Time Associated Comments Diagnosis AUTOMATED URINALYSIS Routine 11/13/2019 3:34 PM R esults for this DIPSTICK POCT CDT procedure are in the results section. documented in this encounter Results (ABNORMAL) Urinalysis Dipstick (11/13/2019 3:34 PM CDT) [facility] Method Time Signature Glucose Urine Negative Negative 11/13/2019 [facility] Qual (mg/dL) 3:40 PM CDT LABORATORY Bilirubin Negative Negative 11/13/2019 [facility] Urine 3:40 PM CDT LABORATORY Ketones, Negative Negative 11/13/2019 [facility] Urine (mg/dL) 3:40 PM CDT LABORATORY Specific >=1.030 (A) 1.005 - 11/13/2019 [facility] Charlo, 1.030 3:40 PM CDT LABORATORY Urine Blood, Urine Negative Neg/Trace 11/13/2019 [facility] 3:40 PM CDT LABORATORY PH Urine 5.0 5.0 - 8.0 11/13/2019 [facility] 3:40 PM CDT LABORATORY Protein, Negative Neg/Trace 11/13/2019 [facility] Urine Qual 3:40 PM CDT LABORATORY (mg/dL) Urobilinogen, 0.2 <2.0 11/13/2019 [facility] Urine (EU/dL) 3:40 PM CDT LABORATORY Nitrite Urine Negative Negative 11/13/2019 [facility] 3:40 PM CDT LABORATORY Leukocyte Negative Negative 11/13/2019 [facility] Est. 3:40 PM CDT LABORATORY Urine Color Yellow Straw-Yellow 11/13/2019 [facility] 3:40 PM CDT LABORATORY Urine Clarity Clear Clear 11/13/2019 [facility] 3:40 PM CDT LABORATORY Specimen Anatomical Collection Method Collection Time Receive d Time (Source) Location / / Volume Laterality Urine 11/13/2019 3:34 PM 0 3:40 CDT PM CDT B[facility] Uro Nurse LAB_1 Performing Organization Address City/State/ZIP Code Phon e Number [facility] [address] [place] [address] documented in this encounter Visit Diagnoses Diagnosis Urinary urgency - Primary Urgency of urination documented in this encounter Care Teams Warehouse Person Relationship Specialty Start Date End Date Sandy Viera MD PCP - General Family Practice 07/20/19 10/29/20 [address] [address] [place] [address] documented as of this encounter
--- OUTSIDE RECORDS SUMMARY | 2021-11-07 19:40 | XMS_ITS | Encounter Summary ---
:1980 Author Organization [facility] Address [address] [place] [address] Care Team Providers Name Role Phone Sandy Viera MD Primary Care Provider Reason for Visit Reason Onset Date Comments ANXIETY follow up Video Visit 03/20/2020 Encounter Details Date Type Department Care Team Description 03/20/2020 Telemedicine [facility] Rose Morrow, COV ID-19 (Primary Dx); Medicine [place] Moderate episode of recurrent major depr essive disorder (HRC); [address] [address] [place] MIKEY (generalized anxiety disorder); [place] [address] [place], [place] Binge eating disorder; [phone] [address] Morbid obesity with BMI of 50.0-59.9, ad ult (HRC); [phone] (Wo rk) CAMRYN (obstructive sleep apnea) Social History Tobacco Use Types Packs/Day Years [...] Progress Notes Rose Morrow, [place] - 03/20/2020 2:20 PM CST Subjective: Today's visit with Narinder was conducted as a scheduled video visit. COVID-19: Patient was diagnosed with COVID-19 with Vault test on 03/16/2020 (reviewed documentation through video visit). Initial symptoms began the day prior with nasal congestion, fatigue, headache, and chills. She is now experiencing a dry cough, muscle aches, loss of smell/taste, nausea, dizziness, and fatigue. She states that her and son were sick last week and also tested positive. No oneelse lives at home. She has been isolating in her room. She states that symptoms are not worsening, things are stable. She has not checked her temperature, so is unsure if she still has a fever. Denieschest pain, shortness of breath, or worsening energy. She has been using Tylenol ES for symptomatic relief with improvement. Depression/Anxiety: Patient was doing better mentally before her COVID-19 diagnosis. She had increased her Wellbutrin XL to 450 mg daily as suggested. She was eating more regularly and appetite had improved. She was accomplishing one task per day. She was feeling better about herself. She stopped taking the Wellbutrin when she started feeling ill because of her nausea. Objective: There were no vitals taken for this visit. General: WDWN female in NAD. Obese body habitus. Not coughing, Does not appear dyspneic. Psych: Appropriate and pleasant affect today PHQ-9 03/20/2020 02/07/2020 01/08/2020 PHQ-9 Score Total 13 16 19 Q1: Loss of Int/Pleas +++ +++ +++ Q2: Depressed mood +++ +++ +++ Q3: Sleep problems +++ +++ +++ Q4: Tired/Low Energy +++ +++ +++ Q5: Appetite change + +++ +++ Q6: Feelings of failure - + +++ Q7: Concentration Prob - - + Q8: Slow or Restless - - - Q9: Thought Self Harm - - - Date PHQ9 was completed 03/20/2020 02/07/2020 01/08/2020 MIKEY-7 07/21/2019 Feeling nervous 0 Can't stop worrying 0 Worrying too much 0 Trouble relaxing 0 Restlessness 0 Easily annoyed 0 Feeling afraid 1 Total score 1 Assessment/Plan: COVID-19 - Discussed symptomatic care recommendations. - Discussed red flag symptoms that would necessitate more emergent evaluation. Discussed with pt that symptoms might worsen week 2 of illness. - Patient has been advised to self quarantine in their home until at least 24 hours has passed sinceresolution of fever without fever reducing medication AND they have improvement in respiratory symptoms AND at least 10 days have passed since onset of symptoms. Since both and son also tested positive, she does not need to self-isolate in her bedroom. Moderate episode of recurrent major depressive disorder (HRC)/MIKEY (generalized anxiety disorder) (HRC) - At this point, advised pt to restart her Wellbutrin 450mg daily - Recheck in one week. Might consider addition of an SSRI for better control of depression. - Continue counseling. Binge eating disorder/Morbid obesity with BMI of 50.0-59.9, adult (HRC) - Patient advised to continue working with Bariatrics Dept on treatment plan CAMRYN (obstructive sleep apnea): Continue CPAP Clinician located at home. Patient located at home Billing based on: Complexity Rose Morrow APRN, CNP TER BACKER documented in this encounter Plan of Treatment Not on filedocumented as of this encounter Visit Diagnoses Diagnosis COVID-19 - Primary Moderate episode of recurrent major depr essive disorder (HRC) MIKEY (generalized anxiety disorder) (HRC) Generalized anxiety disorder Binge eating disorder Morbid obesity with BMI of 50.0-59.9, ad ult (HRC) CAMRYN (obstructive sleep apnea) Obstructive sleep apnea (adult) (pediatr ic) documented in this encounter Care Teams Stack Yield Engineer Relationship Specialty Start Date End Date Sandy Viera MD PCP - General Family Practice 07/20/19 10/29/20 [address] [place] [address] documented as of this encounter
--- OUTSIDE RECORDS SUMMARY | 2021-11-07 19:40 | XMS_ITS | Encounter Summary ---
:1980 Author Organization [facility] Address [address] [place] [address] Care Team Providers Name Role Phone Sandy Viera MD Primary Care Provider Reason for Visit Reason Comments SKIN PROBLEM itchy & dry scalp and face Encounter Details Date Type Department Care Team Description 02/16/2020 Office Visit [facility] [address] Laurence Hyde MD Seborrheic dermatitis (Primary Dx); Dermatology [address] [facility] [address] [facility] [place] [address] [id number] [phone] Social History Tobacco Use Types Packs/Day Years [...] documented as of this encounter Progress Notes Laurence Hyde MD - 02/16/2020 10:30 AM CST Chief complaint: Dry skin on face HPI: Narinder Lucas is a 39 y.o. female here for evaluation of dry skin on face, and scalp. Tried Head and shoulders, and other otc products without benefit. Also noticed some pain under her breasts. PMH: Past Medical History: Diagnosis Date ??? Depression (emotion) (HRC) ??? Overactive bladder ??? Sleep apnea ??? Vitamin D deficiency Medications: Outpatient Medications Prior to Visit Medication Sig Dispense Refill ??? buPROPion (WELLBUTRIN XL) 150 MG 24 hour release tablet Take 2 Tablets by mouth daily. 180 Tablet 0 ??? Ibuprofen 200 MG capsule Take 600 mg by mouth every 6 hours as needed for Pain. ??? Multiple Vitamins-Iron (MULTIVITAMINS-IRON) tablet Take 1 Tablet by mouth daily. 90 Tablet 3 ??? Vitamin D, Ergocalciferol, 1.25 MG (84972 UT) CAPS Take 1 Capsule by mouth once a week. 12 Capsule 0 No facility-administered medications prior to visit. Allergies: No Known Allergies SH: Social History Socioeconomic History ??? Marital status: Spouse name: Not on file ??? Number of children: 1 ??? Years of education: Not on file ??? Highest education level: Not on file Occupational History ??? 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 Financial resource strain: Not on file ??? Food insecurity Worry: Not on file Inability: Not on file ??? Transportation needs Medical: Not on file Non-medical: Not on file Tobacco Use ??? Smoking status: Never Smoker ??? Smokeless tobacco: Never Used Substance and Sexual Activity ??? Alcohol use: Never Frequency: Never ??? Drug use: Never ??? Sexual activity: Yes Partners: Male control/protection: None Lifestyle ??? Physical activity Days per week: Not on file Minutes per session: Not on file ??? Stress: Not on file Relationships ??? Social connections Talks on phone: Not on file Gets together: Not on file Attends mu-ism service: Not on file Active member of club or organization: Not on file Attends meetings of clubs or organizations: Not on file Relationship status: Not on file ??? Intimate partner violence Fear of current or ex partner: Not on file Emotionally abused: Not on file Physically abused: Not on file Forced sexual activity: Not on file Other Topics Concern ??? Bike Helmet No ??? [place] Yes ??? Exercise No ??? Guns in home No ??? Seat Belt Yes ??? Special Diet No ??? Weight Concern No Social History Narrative Grew up in [place], left at age 16, [place] for 5 years, moved to [place] age 21. with one son 6 (autism). ROS: Complete 8 pt ROS obtained and negative. See HPI for pertinent positives. PE: Healthy appearing female in no acute distress. Alert and oriented x 3. Exam includes : scalp, face, under breasts Pertinent findings include: Erythema and scale on medial cheeks and eyebrows, as well as scalp Erythema under bilateral breasts A/P: 1. Seborrhic dermatitis, discussed pathophysiology of seborrheic dermatitis. Encouraged importance of using anti-dandruff shampoo and leave on for at least 5 minutes then rinse. If needed, ok to use steroid topical solution. -sent in rx for keto shampoo to use daily and lidex scalp solution daily as needed -keto cream mixed 1:1 with HC 2.5 cream to use BID as needed on face for redness and scaly. 2. Intertrigo, under breasts -send in keto cream mixed 1:1 with HC 2.5 cream to use BID TENDER documented in this encounter Plan of Treatment Not on filedocumented as of this encounter Visit Diagnoses Diagnosis Seborrheic dermatitis - Primary Seborrheic dermatitis, unspecified Intertrigo Other specified erythematous condition documented in this encounter Care Teams Electrical And Radio Aircraft Mechanic Relationship Specialty Start Date End Date Sandy Viera MD PCP - General Family Practice 07/20/19 10/29/20 [address] [address] [place] [address] documented as of this encounter
--- OUTSIDE RECORDS SUMMARY | 2021-11-07 19:40 | XMS_ITS | Encounter Summary ---
:1980 Author Organization [facility] Address [address] [place] [address] Care Team Providers Name Role Phone Sandy Viera MD Primary Care Provider Reason for Visit Reason Comments Careplan: General Encounter Details Date Type Department Care Team Description 03/06/2020 Telephone [facility] Oralia Knapp, Careplan: General Weight Center RN [address] [facility] [address] [place] [address] Social History Tobacco Use Types [...] encounter Nursing Notes Castro Knapp, SHEYLA - 03/06/2020 3:09 PM CST Bariatric Patient Tracking SmartForm updated to reflect current status with Bariatric Surgery and [facility] Center. Left a voicemail. Get DL, f/u RD, coordinate care between Dr Zhu and therapist (mailed MELISSA last month), PT on hold per Dr Gabriel (02/26/20) ITY SYSTEMS MANAGER documented in this encounter Plan of Treatment Not on filedocumented as of this encounter Visit Diagnoses Not on filedocumented in this encounter Care Teams Latex Dipper Relationship Specialty Start Date End Date Sandy Viera MD PCP - General Family Practice 07/20/19 10/29/20 [address] [place] [address] documented as of this encounter
--- OUTSIDE RECORDS SUMMARY | 2021-11-07 19:40 | XMS_ITS | Encounter Summary ---
:1980 Author Organization [facility] Address [address] [place] [address] Care Team Providers Name Role Phone Sandy Viera MD Primary Care Provider Reason for Visit Reason Comments Careplan: General Encounter Details Date Type Department Care Team Description 11/28/2019 Telephone [facility] Oralia Knapp, Careplan: General Weight Center RN [address] [facility] [address] [place] [address] Social History Tobacco Use Types [...] encounter Nursing Notes Castro Knapp RN - 11/28/2019 8:25 AM CDT Bariatric Patient Tracking SmartForm updated to reflect current status with B[facility]ric Surgery and [facility]. Patient uses outside sleep clinic. She needs to get her machine adjusted but is having trouble contacting them. PT referral is on hold per Dr Ascencio. Gave # to follow up with RD and PSYCH. documented in this encounter Plan of Treatment Not on filedocumented as of this encounter Visit Diagnoses Not on filedocumented in this encounter Care Teams Store Operations Associate Relationship Specialty Start Date End Date Sandy Viera MD PCP - General Family Practice 07/20/19 10/29/20 [address] [address] [place] [address] documented as of this encounter
--- OUTSIDE RECORDS SUMMARY | 2021-11-07 19:40 | XMS_ITS | Encounter Summary ---
:1980 Author Organization [facility] Address [address] [place] [address] Care Team Providers Name Role Phone Sandy Viera MD Primary Care Provider Reason for Referral Consult/Transfer Care (Routine) - Incomplete Specialty Diagnoses / Procedures Referred By Contact Refer red To Contact Diagnoses Severe episode of recurrent major depressive disorder, without psychotic features (HRC) MIKEY (generalized anxiety disorder) (HRC) Rose Morrow APRN, PLASMA SPECIALIST [address] [place] [address] Referral ID Status Reason Start Date Expiration Date Visits V isits Requested Authorized [id number] Incomplete 01/08/2020 04/08/2021 1 1 Scheduling Instructions Your provider has recommended an appoint ment with Behavioral Health. You may call [phone] to schedule your appointmen t. This recommended service/s may not be covered by your health plan (health insu tamar). To find out your specific benefit coverage, please call the number on your insurance card.?? Please note that in order to maintain access for all patients, [facility] does have a late cancellation policy. In order to avoid being restrict ed from scheduling future appointments in Behavioral Health you will need to cance l at least 24 hours in advance. We request you that you arrive 30 minutes before yo ur first appointment to complete paperwork. URING MACHINE FIXER Consult/Transfer Care (Routine) - Closed Specialty Diagnoses / Procedures Referred By Contact Refer red To Contact Diagnoses Morbid obesity with BMI of 50.0-59.9, adult (HRC) Rose Morrow APRN, CNP [address] [place] [address] Referral ID Status Reason Start Date Expiration Date Visits Requ ested Visits Authorized [id number] Closed 01/08/2020 04/08/2021 1 1 Scheduling Instructions Your provider has recommended an appoint ment with Kimmy Muniz. You may call [phone] to schedule your appoi ntment. We suggest you call your health insurance company about your coverage an d benefits for this appointment. URING MACHINE FIXER Reason for Visit Reason Comments REFERRAL REQUEST psychiaitrist Encounter Details Date Type Department Care Team Description 01/08/2020 Office Visit Joseph Huston Rose Morrow, Sev ere episode of recurrent major depressive disorder, without psychotic features (HRC) (Primary Dx); Medicine [place] MIKEY (generalized anxiety disorder); [address] [address] Morbid obesity with BMI of 50.0-59.9, ad ult (HR); [place] [address] [address] [place] Binge eating disorder; [phone] [id number] CAMRYN (obstructive sleep apnea) [phone] (Wo rk) Social History Tobacco Use Types [...] Sign Reading Time Taken Comments Blood Pressure 104/84 01/08/2020 9:56 AM TEXTURING MACHINE FIXER Pulse 106 01/08/2020 9:56 AM TEXTURING MACHINE FIXER Temperature 36.7 ??C (98 ??F) 01/08/2020 9:46 AM TEXTURING MACHINE FIXER Respiratory Rate - - Oxygen Saturation - - Inhaled Oxygen Concentration - - Weight 159.7 kg (352 lb) 01/08/2020 9:46 AM TEXTURING MACHINE FIXER Height 168.9 cm (5' 6.5) 01/08/2020 9:46 AM TEXTURING MACHINE FIXER Body Mass Index 55.96 01/08/2020 9:46 AM TEXTURING MACHINE FIXER documented in this encounter Patient Instructions Patient InstructionsRose Morrow APRN, CNP - 01/08/2020 9:40 AM TEXTURING MACHINE FIXER PLAN - Start wellbutrin (bupropion) 1 tab every morning - Call and check when you are scheduled for your psychologist visit - buy a calendar and write appointments down - Set regular mealtimes and sleep times - Meet with Organic Extractions Technician. URING MACHINE FIXER documented in this encounter Progress Notes Rose Morrow APRN, CNP - 01/08/2020 9:40 AM CST Narinder Lucas [id number] 1980 SUBJECTIVE: NARINDER LUCAS is a 39 y.o. female who presents to the clinic for discussion of several concerns. I am meeting the patient for the first time today. She has a history of recurrent major depression, anxiety, OCD, binge eating disorder, and morbid obesity. She was seeing a psychiatrist, Dr. Wilson, at a practice in [place], but recently missed two scheduled appointments and was discharged from the practice. She states that she forgot about the appointments as it's been harder for her to keep track of things lately. She states that her most recent treatment was venlafaxine XR 150 mg, which she thinks she was started on in October and took for about a month. She did not notice it help her mood. She discontinued it one month ago. She has also been on previous trials of fluoxetine and sertraline, butdoes not remember them being helpful either. She states that for the past month, mood has been significantly depressed. She has no motivation to get out of bed. She is not cooking for herself for cleaning. She feels like everything is a struggle and she does not want to do it. She will purchase groceries, but they will before she cooks them. Instead, she will go to [employer] and eat a larger meal in the evening. She is not working. She has a 6-year-old son with autism. Her is very supportive and helps with her son. She feels at a loss. She is unsure what to do going forward. She wasconsulting with a bariatric doctor, but they told her that surgery would not be a good idea until she was able to get her depression under better control. She has an upcoming appointment with a psychologist in [place], but is unsure of the date. She states that she is not suicidal. She states that at this point, she is not functional and needs help. Patient reports that she thinks she has an addiction to the internet. She is on facebook constantly.She realizes that this is not helpful for her mood or relationships. She is unsure how to break the cycle. Patient is interested in meeting with a inbound customer service agent. She states that she is not sure what to cook for herself. Her and son are picky eaters. Patient has a history of CAMRYN and has a CPAP. She has not being using her CPAP as she needs it adjusted. She is unsure how to get this accomplished. CPAP was initially prescribed at another clinic. PAST MEDICAL AND SURGICAL HISTORY REVIEWED IN [facility] FAMILY AND SOCIAL HISTORY REVIEWED IN [facility] MEDICATIONS: Outpatient Medications Prior to Visit Medication Sig ??? Ibuprofen 200 MG capsule Take 600 mg by mouth every 6 hours as needed for Pain. ??? Multiple Vitamins-Iron (MULTIVITAMINS-IRON) tablet Take 1 Tablet by mouth. ??? naproxen (NAPROSYN) 500 MG tablet ??? SF 1.1 % gel USE 1 TIME PER DAY HS DO NOT RINSE AFTER ??? Vitamin D, Ergocalciferol, 1.25 MG (96679 UT) CAPS ??? [DISCONTINUED] diapers Please dispense adult nighttime diapers (Patient not taking: Reported on 01/08/2020) ??? [DISCONTINUED] traZODone (DESYREL) 50 MG tablet Take 50 mg by mouth daily at bedtime. ??? [DISCONTINUED] venlafaxine (EFFEXORXR) 150 MG 24 hour release capsule TK 1 C PO QD WITH NICKOLAS No facility-administered medications prior to visit. ALLERGIES: Patient has no known allergies. ROS as described above. Other pertinent positives include: patient reports irregular menses. Last period was in August. She has not been sexually active since then and denies chance of . OBJECTIVE BP 104/84 (BP Location: Left Arm, BP Cuff Size: Large) Pulse (!) 106 Temp 98 ??F (36.7 ??C) (Oral) Ht 5' 6.5 (1.689 m) Wt (!) 352 lb (159.7 kg) BMI 55.96 kg/m?? GENERAL: This is a well-developed, well-nourished female in no acute distress. Obese body habitus. PSYCH: Well-oriented. Appropriate mood and affect. She is tearful at times throughout our visit. NEURO: Speech and gait are normal. PHQ-9 01/08/2020 11/06/2019 09/25/2019 PHQ-9 Score Total 19 16 14 Q1: Loss of Int/Pleas +++ +++ +++ Q2: Depressed mood +++ +++ ++ Q3: Sleep problems +++ +++ +++ Q4: Tired/Low Energy +++ +++ +++ Q5: Appetite change +++ +++ +++ Q6: Feelings of failure +++ + - Q7: Concentration Prob + - - Q8: Slow or Restless - - - Q9: Thought Self Harm - - - Date PHQ9 was completed 01/08/2020 - 09/25/2019 MIKEY-7 07/21/2019 Feeling nervous 0 Can't stop worrying 0 Worrying too much 0 Trouble relaxing 0 Restlessness 0 Easily annoyed 0 Feeling afraid 1 Total score 1 ASSESSMENT/PLAN: Severe episode of recurrent major depressive disorder, without psychotic features (HRC)/MIKEY, OCD - I explained to patient that she needs a holistic approach to her mental health. I recommended thatshe keep her upcoming Psychology appt. Given multiple failed trials of SSRIs and recent trial of SNRI without improvement, recommended trial of buPROPion (WELLBUTRIN XL) 150 MG 24 hour release tablet; Take 1 Tablet by mouth daily. - Discussed black box warning: Including worsening of depression or thoughts of suicide which may occur as a result of the Wellbutrin and often occur at initiation or with a change in dose, but can occur at any time. Both of these indicate a need to be seen emergently. In addition, discussed with patient common reactions including nausea, headache, insomnia, anxiety, diarrhea, dry mouth, sexual side effects, and advised to return to clinic if notes these or other symptoms. Patient denies history of seizure disorder or complex migraines. Patient wishes to proceed. Prescription provided. Emphasized the importance of remaining on it for at least 6 weeks. - Recommended re-establishing care with a Psychiatrist. I will reach out to our Psychiatrist to see if there are any openings. Behavioral Health Adult/Peds - Advised pt to purchase calendar to remain on track with appointments. - Recheck in 2 weeks, sooner if condition worsening. 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 - Discussed importance of following through with Psychologist appt. Morbid obesity with BMI of 50.0-59.9, adult (HRC)/Binge eating disorder - Discussed importance of eating every 3-4 hours during the day. Suggested that she try to eat mealswith her son as he is eating TID. - Discussed meal-planning - Referred to Nutrition/Dietitian CAMRYN (obstructive sleep apnea): Advised pt to request equipment upgrade/adjustment from the clinic that initially prescribed the machine. Oligomenorrhea: Discuss this in 2 weeks as we did not have time to address this issue today. Over 50 percent of this 45 minute visit time was spent face to face counseling patient on the assessment, plan and therapy options including risks, benefits, SE and goals of therapy. Related questions and concerns were addressed. Verbal and/or written education/instructions were provided. Advised to call or seek medical attention in the event of progressive symptoms or related concerns. The patient verbally expressed understanding of the information and agreed with the plan. Rose Morrow APRN, CNP [facility] NB: A voice recognition dictation system was used for this note. Please excuse any typographical errors. URING MACHINE FIXER documented in this encounter Plan of Treatment Scheduled Referrals Name Type Priority Associated Diagnoses Order S chedule Nutrition/Dietitian Referral Routine Morbid obesity with B IN Ordered: 01/08/2020 of 50.0-59.9, adult (HRC) Behavioral Health Referral Routine Severe episode of Order ed: 01/08/2020 Adult/Peds recurrent major depressive disorder, without psychotic features (HRC) MIKEY (generalized anxiety disorder) documented as of this encounter Visit Diagnoses Diagnosis Severe episode of recurrent major depres sive disorder, without psychotic features (HRC) - Primary MIKEY (generalized anxiety disorder) (HRC) Generalized anxiety disorder Morbid obesity with BMI of 50.0-59.9, ad ult (HRC) Binge eating disorder CAMRYN (obstructive sleep apnea) Obstructive sleep apnea (adult) (pediatr ic) documented in this encounter Care Teams Mattress Filler Relationship Specialty Start Date End Date Sandy Viera MD PCP - General Family Practice 07/20/19 10/29/20 [address] [place] [address] documented as of this encounter
--- OUTSIDE RECORDS SUMMARY | 2021-11-07 19:40 | XMS_ITS | Encounter Summary ---
:1980 Author Organization [employer] Address [address] [place] [address] Care Team Providers Name Role Phone Sandy Viera MD Primary Care Provider Reason for Visit Reason Comments Nutrition Counseling Encounter Details Date Type Department Care Team Description 11/13/2019 Telemedicine [place] Bariatric Ame Espinal, Morbid o besity with BMI of 50.0-59.9, adult (HRC); Surgery & Weight RDN, LD Sleep apnea, unspecified type Center [address] [facility] [address] [facility] [place] [id number] [phone] Social History Tobacco Use Types Packs/Day Years [...] encounter Progress Notes Ame Espinal, RD - 11/13/2019 8:30 AM CDT [facility] Nutrition Therapy: Bariatric MWM Follow-Up This visit was conducted via video. Location of clinician clinic. Location of patient home. Billing based on: Time 15 minutes spent on the phone with the patient, with greater than 50% in counseling and coordination of care. ASSESSMENT: Referring Provider: Dr. Ascencio BMI: Estimated body mass index is 50.2 kg/m?? as calculated from the following: Height as of 10/27/19: 5' 6 (167.6 cm). Weight as of 11/06/19: 311 lb (326538 g).. Since last RD visit: Psych assessment noted, not appropriate for surgery. Last saw pt in July 2019. Low back pain, cannot even stand up to do chores thus no physical activity. Has PT appt today. Sleep has improved significantly, trazodone & melatonin. Concerned about diabetes risk d/t sleep apnea and lack of physical activity. Will touch base w/ MD & psychologist. Patient is not an appropriate candidate for desired bariatric surgery based on current dietary habits. Patient would likely be a better candidate by 3 meals/day, managing emotional health, physical activity, adequate water intake. Patient will return for follow [...] CAMRYN INTERVENTION: Healthy Diet and Meal planning. Patient verbalizes understanding of the education. MONITORING AND EVALUATION: Patient identified goals: 1. Maintain 3 meals/day. 2. At least 48 fl oz water. Follow up with dietitian to demonstrate progress with goals. Time: 15 minutes. documented in this encounter Plan of Treatment Not on filedocumented as of this encounter Visit Diagnoses Diagnosis Morbid obesity with BMI of 50.0-59.9, ad ult (HRC) Sleep apnea, unspecified type documented in this encounter Care Teams Carpenter Inspector Relationship Specialty Start Date End Date Sandy Viera MD PCP - General Family Practice 07/20/19 10/29/20 [address] [place] [address] documented as of this encounter
--- OUTSIDE RECORDS SUMMARY | 2021-11-07 19:40 | XMS_ITS | Encounter Summary ---
:1980 Author Organization [employer] Address [address] [address] Care Team Providers Name Role Phone Sandy Viera MD Primary Care Provider Reason for Visit Reason Comments Spine Lumbar Encounter Details Date Type Department Care Team Description 12/10/2019 Office Visit [facility] Pamela Beauchamp Chro volodymyr bilateral low Center - Physical PT back pain, Therapy [address] unspecified whether [address] [place], [place] [address] (Primary Dx) [phone] (Wo rk) Social History Tobacco Use Types [...] encounter Progress Notes Pamela Beauchamp, PT - 12/10/2019 2:30 PM CST [facility] Progress Note Visit Number: 3 Initial Certification Period: 11/13/2019 to 02/11/20 Referring Provider: Sandy Viera Visit Diagnosis: No diagnosis found. Precautions: morbid obesity SUBJECTIVE: Patient arrived 15 minutes late to today's appointment. She reports she had felt really good for about a week, but then she received a massage last and has been sore since then. Remains very limited with standing and walking tolerance. OBJECTIVE Current Objective Findings: Ambulation: increased spinal lordosis, Trendelenberg Significant weakness noted in core & LE musculature Treatment/Education Today: Self-care x 15 minutes: -encouraged to hold off on getting more massages due to her body's response to massages -encouraged to consider acupuncture Therapeutic exercise x 15 minutes: -standing trunk flexion at countertop x 5 reps, reviewed for HEP -seated long arc quad x 10 reps each leg, added to HEP -NuStep, seat 13, arms 11, level 0 x 5 minutes Timed Code Treatment Minutes: 30 Total Treatment Minutes: 30 Current Home Exercise Program List: Access Code: [email or web address] URL: [email or web address] Date: 12/10/2019 Prepared by: Jaylene Beauchamp Exercises Seated Long Arc Quad - 10 reps - 3 sets - 5 sec hold - 3-5x daily Standing Shoulder and Trunk Flexion at Table - 5 reps - 5-10 sec hold - 2-3x daily ASSESSMENT/PROGRESS TOWARD GOALS: Reported that her back felt really good doing the NuStep machine, although she was very fatigued after doing this. Focusing on core/LE strengthening to help improve her tolerance with functional movements. Functional Goals/Outcomes: HEP/Independent Management: Demonstrate independence with [...] musculature with exercise. NuStep. General LE strengthening. ENTERPRISE ARCHITECT documented in this encounter Plan of Treatment Not on filedocumented as of this encounter Visit Diagnoses Diagnosis Chronic bilateral low back pain, unspeci fied whether sciatica present - Primary documented in this encounter Care Teams Manager Programs Relationship Specialty Start Date End Date Sandy Viera MD PCP - General Family Practice 07/20/19 10/29/20 [address] [place] [id number] documented as of this encounter
--- OUTSIDE RECORDS SUMMARY | 2021-11-07 19:40 | XMS_ITS | Encounter Summary ---
:1980 Author Organization [email or web address] Address [address] [place] [address] Care Team Providers Name Role Phone Sandy Viera MD Primary Care Provider Reason for Visit Reason Comments Follow-up Encounter Details Date Type Department Care Team Description 02/26/2020 Telemedicine [facility] Bariatric Surgery Carrie Ascencio, Morbid obesity with BMI of 50.0-59.9, adult (HRC) (Primary Dx); & [facility] Mixed stress and urge urinary incontinen ce; [address] itamin D deficiency; [address] Dr JENSEN (generalized anxiety disorder); [place], [place] Xander drummond eating disorder; [phone] CAMRYN (obstructive sleep apnea); [phone] Moderate episod e of recurrent major depressive disorder (HRC) (Work) Social History Tobacco Use Types [...] - Oxygen Saturation - - Inhaled Oxygen - - Concentration Weight 160.1 kg (353 lb) 02/26/2020 10:56 reports from last AM DRYING UNIT FELTING MACHINE OPERATOR visit does not h ave scale at home Height 168.9 cm (5' 6.5) 02/26/2020 10:56 AM DRYING UNIT FELTING MACHINE OPERATOR Body Mass Index 56.12 02/26/2020 10:56 AM DRYING UNIT FELTING MACHINE OPERATOR documented in this encounter Progress Notes Carrie Ascencio, [facility] - 02/26/2020 11:30 AM CST Metabolic Health and Weight Management Follow up [...] pursuing a surgical intervention for weight loss. ?? Last seen on 11/20/2019 with recorded weight of 337 lbs. Patient's weight history is as follows: Bariatric Weight History and Calculations Weight History Age at Onset of Obesity: 28 Preferred Weight: 150 lb Starting Weight: 335 lb Current Weight: 353 lb Height (in): 67 Weight Calculations Excess Weight: 190 lb 8 oz Current Weight Loss: -18 lb Goal Weight: 144 lb 8 oz Starting BMI: 52.3980661272600 Percent Exess Weight Loss: -9.56794999486221 Current BMI: 55.1647820024695 Percent Totoal Body Weight Loss: -5.03275985089113 Previous medications for the intention of weight loss: naltrexone : side effects of nausea and diarrhea. Nutrition :working on becoming an appropriate candidate for bariatric surgery. Psychology: missed follow up appointment with Madiha January 2020. [place] not to be ready for bariatric surgery process at prior appointment. Did establish care appointment with new ildavidashyann therapist in January, but now opts to switch to alternative therapists as she did not feel a good therapeutic fit She also follows with psychiatry : Dr Renan Wilson, in [place] . CAMRYN: none compliant with CPAP in the past. Trying a new mask with assistance of sleep clinic . Working on sleep hygiene. Physical therapy : limited by lower back pain and knee pain (unable to stand for even a few minutes and affecting ADLs. Working with PM and R physical therapist at present. Contraception : none. Denies any prior or current self harm or suicidal ideation. Endorses low mood affecting her ability to remember appointments. Often forgets to eat during the day due to low mood also. Started on new antidepressant (Wellbutrin 450mg) by psychiatrist. Feels this is helping with energy levels. Noticing some appetite suppression with this also. Denies currently actively or PMHx of GERD symptoms. Patient has made previous weight loss attempts: Yes [facility] Assessment: Updating Your Care Team 1. Have you been working on any lifestyle goals since your last visit?: No 3. Are you pleased with your weight loss at this point?: No 4. How many hours of sleep to you get per night?: 4-6 5. What physical activity are you doing?: nothing 7. Do you drink sugar-sweetened beverages (regular soda or sweetened coffee or tea)?: Yes 8. What would you like to discuss today?: What can help with bloating, surgery Post-surgical information: 5. Does the patient snack?: Neg REVIEW OF SYSTEMS: A complete 10-point ROS was negative with the exception of the following: Review of symptoms positive for the following: Fatigue Dental Problems Low Back Pain Pertinant negatives: Dizziness Headaches Excessive burping Palpations Chest Pain Nausea Shortness of Breath At Rest Shortness of Breath Walking Blurry Vision Objective: Vitals: 02/26/20 1056 Weight: (!) 353 lb (160.1 kg) General: Alert, oriented, NAD Respiratory: Talking in full sentences. Nonlabored breathing. Psych: Affect is normal, patient is appropriate, grooming is appropriate. -RUQ ultrasound scan 06/27/2019 : Hepatic steatosis, otherwise unremarkable. PHQ9 Scores PHQ-9 02/07/2020 01/08/2020 11/06/2019 PHQ-9 Score Total [...] Date PHQ9 was completed 02/07/2020 01/08/2020 - Index Date: 03/14/2019 ASSESSMENT/PLAN We will work together to treat the following obesity-associated medical conditions and conditions exacerbated by or contributing to weight gain by aggressive management of weight: ICD-10-CM 1. Morbid obesity with BMI of 50.0-59.9, adult ([facility]) E66.01 Z68.43 2. Mixed stress and urge urinary incontinence N39.46 3. Vitamin D deficiency E55.9 4. MIKEY (generalized anxiety disorder) ([facility]) F41.1 5. Binge eating disorder F50.81 6. CAMRYN (obstructive sleep apnea) G47.33 7. Moderate episode of recurrent major depressive disorder ([facility]) F33.1 The patient would like to pursue a surgical intervention for weight loss at this time. -depression symptoms and back pain continue to severely impact her ability to adhere to lifestyle modification. Encourage to refocus on continuing to address mood with psychology and psychiatry as important step towards bariatric surgery. Will assist scheduling with Madiha. -The patient does have signs of emotionally dysregulated food intake and /or eating disorder is working with psychology for further evaluation of these symptoms. -Nutrition: will reconnect with RD -Exercise: hold off on [...] this patient: Naltrexone (intolerable GI side effects) Patient is an appropriate candidate for bariatric surgery from a medical standpoint and may continue surgical evaluation with the core rescuer, psychologist, and physical therapist. However, the patient may have additional risk factors for surgery including emotionally dysregulated food intake, active depression : these areas need to be focused on currently before moving forward with the surgical process. Patient expressed understanding and agreement with the plan. Disposition: follow up with me in 3 months. This visit was conducted via video. Location of clinician home Location of patient home. Total time : 34 minutes, spent reviewing lab results and /or imaging studies, performing exam and preparing plan of care. . NG UNIT FELTING MACHINE OPERATOR documented in this encounter Nursing Notes Xin Ocampo RN - 02/26/2020 11:30 AM CST Standard rooming via telephone with follow up SmartForm completed. Last seen on 11/20/2019 with recorded weight of 337 lbs. Weight History: Bariatric Weight History and Calculations Weight History Age at Onset of Obesity: 28 Preferred Weight: 150 lb Starting Weight: 335 lb Current Weight: 353 lb Height (in): 67 Weight Calculations Excess Weight: 190 lb 8 oz Current Weight Loss: -18 lb Goal Weight: 144 lb 8 oz Starting BMI: 52.0560052497678 Percent Exess Weight Loss: -9.08734056107124 Current BMI: 55.4033579035250 Percent Totoal Body Weight Loss: -5.79061358810752 Measurements Do you have a scale? NO lb. Do you have a BP cuff? NO Eating patterns Patient is experiencing the following symptoms/problems: Back Pain Bloating Constipation Diarrhea Joint Pain Pertinant Negatives Include Binge Eating Constipation Emotional Eating Eating Until Feeling Overfull GERD/Heartburn Increased Food Cravings Increased Hunger Mood Changes Side Effects from Weight Loss Medications Medications: Compliance: YES Side effects: NO Would like to discuss: What can help with bloating, surgery Provided her my direct contact number for questions. Xin Ocampo RN 11:02 AM 02/26/2020 NG UNIT FELTING MACHINE OPERATOR Melissa Adams CMA - 02/26/2020 11:30 AM CST The prior authorization for bupropion (WELLBUTRIN XL) 150MG tablet has been approved. Please contactthe pharmacy and ask them to notify the patient when prescription is ready for picker box operator. Authorized from February 25, 2020 to February 25, 2021 Document using the ePA QuickAction PA Approved. Click Sign and Complete. NG UNIT FELTING MACHINE OPERATOR Chasity Hopper CMA - 02/26/2020 11:30 AM CST Prior Authorization was Approved for bupropion (WELLBUTRIN XL) 150MG tablet Pharmacy has has been notified.. NG UNIT FELTING MACHINE OPERATOR documented in this encounter Plan of Treatment Not on filedocumented as of this encounter Visit Diagnoses Diagnosis Morbid obesity with BMI of 50.0-59.9, ad ult (HRC) - Primary Mixed stress and urge urinary incontinen ce Mixed incontinence urge and stress (male )(female) Vitamin D deficiency (HRC) Unspecified vitamin D deficiency MIKEY (generalized anxiety disorder) (HRC) Generalized anxiety disorder Binge eating disorder CAMRYN (obstructive sleep apnea) Obstructive sleep apnea (adult) (pediatr ic) Moderate episode of recurrent major depr essive disorder (HRC) documented in this encounter Care Teams Livestock Buyer Relationship Specialty Start Date End Date Sandy Viera MD PCP - General Family Practice 07/20/19 10/29/20 [address] [address] [place] [address] documented as of this encounter
--- OUTSIDE RECORDS SUMMARY | 2021-11-07 19:40 | XMS_ITS | Encounter Summary ---
:1980 Author Organization [employer] Address [address] [place] [address] Care Team Providers Name Role Phone Sandy Viera MD Primary Care Provider Reason for Visit Procedure/Equipment (Routine) - Incomplete Specialty Diagnoses / Procedures Referred By Contact Refer red To Contact Diagnoses Pain in both knees, unspecified chronicity Aurelio Neil MD Procedures XR Knee Lt [address] [place] [address] Referral ID Status Reason Start Date Expiration Date Visits V isits Requested Authorized [id number] Incomplete 11/14/2019 02/12/2021 1 1 Encounter Details Date Type Department Care Team Description 11/14/2019 Ancillary Procedure Kimmy Neil, Pain in both knees, [place] [address] Aurelio Roa MD unspecified Radiology [address] [place] chronicity [address] [place], [place] [address] [place] [address] [phone] (Work) [phone] Social History Tobacco Use Types Packs/Day Years [...] Date/Time Associated Diagnosis Comme nts XR KNEE LT 3 VIEWS Routine 11/14/2019 3:31 PM Pain in both kne es, Results for this CDT unspecified procedure are i n chronicity [...] evidence of fracture in the left knee. [place] views of both patella demonstrate no significant joint space narrowing or other osseous a bnormality. Procedure Note Rakesh Gentile MD - 11/14/2019 IMPRESSION COMPARISON: None. FINDINGS: There is mild medial compartme nt narrowing in the left knee. No significant joint effusion or evidence of fracture in the left knee. [place] views of both patella demonstrate no significant [...] evidence of fracture in the left knee. [place] views of both patella demonstrate no significant joint space narrowing or other osseous a bnormality. Procedure Note Rakesh Gentile MD - 11/14/2019 IMPRESSION COMPARISON: None. FINDINGS: There is mild medial compartme nt narrowing in the left knee. No significant joint effusion or evidence of fracture in the left knee. [place] views of both patella demonstrate no significant joint space narrowing or other osseous abnormality. Aurelio Neil MD RAD GD documented in this encounter Visit Diagnoses Diagnosis Pain in both knees, unspecified chronici ty Pain in both knees, unspecified chronici ty documented in this encounter Care Teams Beer Merchant Relationship Specialty Start Date End Date Sandy Viera MD PCP - General Family Practice 07/20/19 10/29/20 [address] [place] [address] documented as of this encounter
--- OUTSIDE RECORDS SUMMARY | 2021-11-07 19:40 | XMS_ITS | Encounter Summary ---
:1980 Author Organization [employer] Address [address] [place] [address] Care Team Providers Name Role Phone Sandy Viera MD Primary Care Provider Reason for Referral Therapies (Routine) - Closed Specialty Diagnoses / Procedures Referred By Contact Refer red To Contact Diagnoses Acute bilateral knee pain Strain of gastrocnemius muscle, unspecified laterality, initial encounter Aurelio Neil MD [address] [place] [address] Referral ID Status Reason Start Date Expiration Date Visits Requ ested Visits Authorized Closed 11/14/2019 01/13/2020 1 1 Scheduling Instructions Your provider has recommended an appoint ment with [facility]. You may call [phone] to schedule your a ppointment. If you do not schedule an appointment within the next 1 to 3 busin ess days, we will call you to help arrange your appointment. We suggest you call [employer] about your coverage an d benefits for this appointment. Procedure/Equipment (Routine) - Incomplete Specialty Diagnoses / Procedures Referred By Contact Refer red To Contact Diagnoses Pain in both knees, unspecified chronicity Aurelio Neil MD Procedures XR Knee Rt 1-2 Views Comparison [address] [place] [address] Referral ID Status Reason Start Date Expiration Date Visits V isits Requested Authorized Incomplete 11/14/2019 02/12/2021 1 1 Procedure/Equipment (Routine) - Incomplete Specialty Diagnoses / Procedures Referred By Contact Refer red To Contact Diagnoses Pain in both knees, unspecified chronicity Aurelio Neil MD Procedures XR Knee Lt [address] [place] [address] Referral ID Status Reason Start Date Expiration Date Visits V isits Requested Authorized [id number] Incomplete 11/14/2019 02/12/2021 1 1 Reason for Visit Reason Comments Knee Pain or Injury Left knee DOP:1 month slippe d on kitchen floor Consult/Transfer Care (Routine) - Closed Specialty Diagnoses / Procedures Referred By Contact Refer red To Contact Diagnoses Knee pain, unspecified chronicity, [place] [address] [place] [address] Referral ID Status Reason Start Date Expiration Date Visits Requ ested Visits Authorized [id number] Closed 11/06/2019 02/04/2021 1 1 Encounter Details Date Type Department Care Team Description 11/14/2019 Office Visit JAZIEL Silvacarlos, Acute bilate ral knee pain (Primary Dx); Orthopaedics [facility] Sports Aurelio Roa MD Pain in both knees, unspecified chronici ty; Medicine [address] [place] Strain of gastrocnemius muscle, unspecif ied laterality, initial encounter [address] [facility] [place] [phone] Social History Tobacco Use Types Packs/Day Years [...] - Inhaled Oxygen Concentration - - Weight 152.9 kg (337 lb) 11/14/2019 3:13 PM CDT Height 170.2 cm (5' 7) 11/14/2019 3:13 PM CDT Body Mass Index 52.78 11/14/2019 3:13 PM CDT documented in this encounter Progress Notes Aurelio Neil MD - 11/14/2019 3:20 PM CDT Please see the dictation from this date for complete details. Aurelio Neil MD - 11/14/2019 12:00 PM CDT NAME: STEVEN LUCAS MR#: [id number] CSN: [id number] AUTHENTICATING CLINICIAN: Aurelio Neil MD CONFIRM #: [id number] LOC: CLINIC PROGRESS NOTE DATE OF VISIT: 11/14/2019 : 1980 Steven is a 39-year-old female who comes in today for evaluation really of bilateral knee pain as well as leg pain. She states that this has been going on for a month. She describes slipping and fallingin her kitchen. She describes her feet sliding out, putting somewhat of a valgus strain on her kneesand falling and landing on the knees. She has had pain in her knees as well as her legs since that time. Her pain is aggravated with standing and walking. She rates the pain at about 7. The worst of her pain that she experiences she feels in the lateral calf and she points to the mid fibular region bilaterally, perhaps slightly distant to that. She also feels pain on the medial side of her knees. Shegets relief with inactivity and rest. No locking or buckling. No history of surgery on these. No formal treatment thus far. No history of hip surgery. Her past history is reviewed Epic. Noted for obesity and depression. Medications and allergies not conditionally contributory. Socially, she is unemployed. Nonsmoker. Living in [place], [place]. Family history is negative for bleeding issues, clotting disorders or connective tissue disease. Review of systems is negative for fever, chills, unexplained weight loss, rheumatoid arthritis, gout, psoriasis, bleeding issues, clotting disorders, diabetes. On exam today, she is alert, oriented, very pleasant, in no apparent distress. She ambulates with a nonantalgic-appearing gait. She has no apparent effusion that is evident in either of the knees. Bothknees extend fully. They flex to about 120 degrees bilaterally, limited by leg size. Her collateral ligaments appear to be stable to medial lateral stress with a good endpoint. She has some tenderness along the medial joint lines bilaterally. Possibly some mild tenderness along the medial collateral origin of the left knee more than the right, but the ligaments are stable. Leg size makes Shaan's difficult to appreciate, but she does not appear to have gross AP instability. Her hip exam bilaterallyis negative with a negative Stinchfield's. Lateral sides of the knees are mildly tender. She has tenderness down in the anterolateral compartment. The compartments are soft. She has intact active ankledorsiflexion and plantar flexion, as well as negative passive stretch. Stressing the ankles within the mortise does not appear to cause her any pain on either side. It is more of a muscular tenderness with palpation. She has no apparent tenderness of the Achilles tendons bilaterally. Plain x-rays of her left knee and sunrise view of both knees had been done. She has some moderate-appearing narrowing of the medial compartment of her left knee. IMPRESSION AND PLAN: I have discussed with Hallie at length she has a modest amount of osteoarthritis in her knee already evident at a young age. I talked to her about the importance of weight loss. Her BMI is over 50. She may have strained her medial collateral ligaments bilaterally. Clinically, it is suspicious for that,although her knees are stable. The tenderness in the calf muscles may be a result of a strain. She does not have any findings of compartment syndrome. Her ankle joints seem nontender and stable. I am going to try to get her into a therapy program. We also have researched a water aerobics program to see if we can get her into a better weight loss program, which she is motivated to do. I explained to her the risks to her mortgage loan reviewer of her weight given the appearance in her knees already. I am going to have her follow up here in about 6 weeks to see how she is progressing with this. We also discussed some [id number] topical medications that she might try. Also instructed her to try some ibuprofen 3 times a day. She is agreeable with this approach. Follow up 6 weeks. TAG:MEDQ C: R:11/14/19 19:46 CONFIRM#:[id number] documented in this encounter Plan of Treatment Scheduled Referrals Name Type Priority Associated Diagnoses Order S chedu Physical Therapy Referral Routine Acute bilateral knee pain Ordered: 11/14/2019 Strain of gastrocnemius muscle, unspecified laterality, initial encounte r documented as of this encounter Results XR Knee Rt 1-2 [...] evidence of fracture in the left knee. [place] views of both patella demonstrate no significant joint space narrowing or other osseous a bnormality. Procedure Note Rakesh Gentile MD - 11/14/2019 IMPRESSION COMPARISON: None. FINDINGS: There is mild medial compartme nt narrowing in the left knee. No significant joint effusion or evidence of fracture in the left knee. [place] views of both patella demonstrate no significant [...] evidence of fracture in the left knee. [place] views of both patella demonstrate no significant joint space narrowing or other osseous a bnormality. Procedure Note Rakesh Gentile MD - 11/14/2019 IMPRESSION COMPARISON: None. FINDINGS: There is mild medial compartme nt narrowing in the left knee. No significant joint effusion or evidence of fracture in the left knee. [place] views of both patella demonstrate no significant joint space narrowing or other osseous abnormality. Aurelio Neil MD RAD GD documented in this encounter Visit Diagnoses Diagnosis Acute bilateral knee pain - Primary Pain in both knees, unspecified chronici ty Strain of gastrocnemius muscle, unspecif ied laterality, initial encounter Pain in both knees, unspecified chronici ty Pain in both knees, unspecified chronici ty documented in this encounter Care Teams Licensed Physical Therapist Relationship Specialty Start Date End Date Sandy Viera MD PCP - General Family Practice 07/20/19 10/29/20 [address] [address] [place] [address] documented as of this encounter
--- OUTSIDE RECORDS SUMMARY | 2021-11-07 19:40 | XMS_ITS | Encounter Summary ---
:1980 Author Organization [employer] [facility] [employer] Address [address] [place] [address] Care Team Providers Name Role Phone Sandy Viera MD Primary Care Provider Reason for Visit Reason Comments Medication Questions Encounter Details Date Type Department Care Team Description 04/15/2020 Telephone [facility] Rose Morrow, [facility] ication Questions Medicine POLICE COMMUNICATIONS OPERATOR, CAMPUS WELLNESS COORDINATOR [address] [place] [address] [place], [place] [id number] (Wo rk) Social History Tobacco Use Types [...] documented as of this encounter Nursing Notes Lubna Boucher RN - 04/16/2020 9:48 AM CST Left message to call back [phone] D TEACHER Keila Bullock - 04/15/2020 5:57 PM CST Medications - Med Change / Question Is this a medication change or a general question? Med Question / med change What is your question or concern? Patient has d/c zoloft since it was making her brain foggy, sick to her stomach, patient explains it as feeling numb and not thinking straight What is the name and dose of the medication? zoloft How often do you take it? 1 x daily Who prescribed it? Malou Morrow If a prescription is needed, patient would [...] or unknown) Please route to: Triage Pool D TEACHER documented in this encounter Plan of Treatment Not on filedocumented as of this encounter Visit Diagnoses Not on filedocumented in this encounter Care Teams Scrub Nurse Relationship Specialty Start Date End Date Sandy Viera MD PCP - General Family Practice 07/20/19 10/29/20 [address] [place] [address] documented as of this encounter
--- OUTSIDE RECORDS SUMMARY | 2021-11-07 19:40 | XMS_ITS | Encounter Summary ---
:1980 Author Organization [facility] Address [address] [place] [address] Care Team Providers Name Role Phone Sandy Viera MD Primary Care Provider Reason for Visit Reason Comments Spine Lumbar Encounter Details Date Type Department Care Team Description 03/10/2020 Therapy [facility] [place] Pamela Beauchamp, Chronic bilateral low - Physical Therapy PT back pain, unspecified [address] [facility] [address] [place] [address] [place] [address] present (Primary Dx) [phone] (Wo rk) Social History Tobacco Use Types [...] encounter Progress Notes Pamela Beauchamp, PT - 03/10/2020 3:15 PM CST [facility] Physical Therapy Progress Note Visit Number: 10 Initial Certification Period: 11/13/2019 to 02/11/20 Re-certification Period: 03/03/2020 to 06/01/2020 Referring Provider: Sandy Viera Visit Diagnosis: 1. Chronic bilateral low back pain, unspecified whether sciatica present (HRC) Precautions: morbid obesity SUBJECTIVE: Patient states her knees are feeling good today. Her back continues to feel consistently painful, but admits continuing to struggle with eating/drinking properly and with her depression. She did schedule an appointment with Dr. Ochoa to consult regarding low back pain. OBJECTIVE Current Objective Findings: Ambulation: increased spinal lordosis, Trendelenberg Significant weakness noted in core & LE musculature Tenderness to palpation: left patellar tendon Treatment/Education Today: Therapeutic Activity x 45 minutes: -discussed importance of good nutrition, fluid intake to help with her energy levels to avoid prolonged sitting throughout the day. -suggested looking into meal delivery service -discussed [employer] apps that could help with implementing lifestyle changes that have been discussed over the past treatment sessions including water intake, eating fruits/veggies, monitoring step counts per day, doing home exercise program Timed Code Treatment Minutes:45 Total Treatment Minutes: 45 Current Home Exercise Program List: Access Code: [email or web address] Exercises Squat at Table - 10 reps [...] hold - 1-2x daily ASSESSMENT/PROGRESS TOWARD GOALS: Patient realizes that her depression continues to be the primary reason for her lack of motivation to move. And she realizes movement will likely help her knee and back feel better. However, continuingto have difficulty with home exercise compliance and has not yet successfully implemented changes that have been discussed to increase her daily activity. Focusing on lifestyle changes over the past few sessions and patient continues to work with psychology. Functional Goals/Outcomes: HEP/Independent Management: Demonstrate independence with [...] increased symptoms in 8 weeks. ONGOING PLAN: Work on finding core musculature with exercise. NuStep & leg press machine for knee pain. General LE strengthening. Education on healthier lifestyle to help with depression and movement goals. ER WASTE DISPOSAL LEAKAGE documented in this encounter Plan of Treatment Not on filedocumented as of this encounter Visit Diagnoses Diagnosis Chronic bilateral low back pain, unspeci fied whether sciatica present - Primary documented in this encounter Care Teams Necktie Operator Pockets And Pieces Relationship Specialty Start Date End Date Sandy Viera MD PCP - General Family Practice 07/20/19 10/29/20 [address] [place] [address] documented as of this encounter
--- OUTSIDE RECORDS SUMMARY | 2021-11-07 19:40 | XMS_ITS | Encounter Summary ---
:1980 Author [facility] Address [address] [place] [address] Care Team Providers Name Role Phone Sandy Viera MD Primary Care Provider Reason for Visit Reason Comments Careplan: General Encounter Details Date Type Department Care Team Description 01/29/2020 Telephone [facility] Oralia Knapp, Careplan: General Weight Center RN [address] [facility] [address] [place], [place] [address] Social History Tobacco Use Types Packs/Day Years [...] encounter Nursing Notes Castro Knapp RN - 01/29/2020 4:25 PM CST Spoke to patient. She reports having issues with sleeping so has not been able to use CPAP. Advised to continue to work with PCP about depression and sleep issues. Informed her we will need 4 weeks CPAP down load once she is ismael to use mask. Patient will follow up with electronic test technician. I will mail her MELISSA so Dr Zhu can coordinate care with her therapist (she is having issues with e mail). She will discuss the need for physical therapy evaluation with Dr Gabriel. CUTTER documented in this encounter Plan of Treatment Not on filedocumented as of this encounter Visit Diagnoses Not on filedocumented in this encounter Care Teams Music Engineer Relationship Specialty Start Date End Date Sandy Viera MD PCP - General Family Practice 07/20/19 10/29/20 [address] [address] [place] [address] documented as of this encounter
--- OUTSIDE RECORDS SUMMARY | 2021-11-07 19:40 | XMS_ITS | Encounter Summary ---
:1980 Author Organization [facility] Address [address] [place] [address] Care Team Providers Name Role Phone Sandy Viera MD Primary Care Provider Reason for Visit Reason Comments Follow-up Encounter Details Date Type Department Care Team Description 11/20/2019 Telemedicine [facility] Carrie Ascencio, Timbo o besity with BMI of 50.0-59.9, adult (HRC) (Primary Dx); Surgery & Weight [facility] Sleep apnea, unspecified type; Center [address] [facility] Overactive bladder; [address] [facility] Depression, unspecified depression type; [address] [place] Mixed stress and urge urinar [place] [id number] Social History Tobacco Use Types Packs/Day Years [...] - - Weight 152.9 kg (337 lb) 11/20/2019 11:01 AM CDT Height 170.2 cm (5' 7) 11/20/2019 11:01 AM CDT Body Mass Index 52.78 11/20/2019 11:01 AM CDT documented in this encounter Patient Instructions Patient InstructionsCarrie Ascencio [facility] - 11/20/2019 11:30 AM CDT - continue working with the physical therapist and await recommendations from the physical medicine and rehabilitation doctor. - make an appointment with the sleep clin - have your vit D recheck lab documented in this encounter Progress Notes Carrie Ascencio [facility] - 11/20/2019 11:30 AM CDT Metabolic Health and Weight [...] pursuing a surgical intervention for weight loss. Last seen on 09/25/2019 with recorded weight of 339 lbs. Patient's weight history is as follows: Bariatric Weight History and Calculations Weight History Age at Onset of Obesity: 28 Preferred Weight: 150 lb Starting Weight: 335 lb Current Weight: 337 lb Height (in): 67 Weight Calculations Excess Weight: 190 lb 8 oz Current Weight Loss: -2 lb Goal Weight: 144 lb 8 oz Starting BMI: 52.0223547925176 Percent Exess Weight Loss: -1.6683121152418 Current BMI: 52.4248970176182 Percent Totoal Body Weight Loss: -0.919658163341777 Previous medications for the intention of weight loss: naltrexone : side effects of nausea and diarrhea. Nutrition :seen 11/12 : not currently appropriate candidate for bariatric surgery. Eating fast food most days. Recently became aware bank statement is mostly food. Feels unable to cook at home due to back pain. Psychology: seen 10/26/2019: felt not to be ready for bariatric surgery process at this time. Is awaiting establish care appointment with new therapist at the end of this month. She also follows with psychiatry : Dr Renan Wilson, in [place] . CAMRYN: none compliant with CPAP : unable to tolerate mask. Resultant poor sleep quality : has been referred to sleep clinic : has yet the schedule this appointment. Physical therapy : limited by lower back pain and knee pain (unable to stand for even a few minutes and affecting ADLs. Sedentary at present. Working with PT specifically on back pain. Orthopedics havesuggested pool therapy to her. She has an initial appointment with PM and R next week regarding her back. Contraception : none. Denies any prior or current self harm or suicidal ideation. Denies currently actively or PMHx of GERD symptoms. Patient has made previous weight loss attempts: Yes [facility] Assessment: Updating Your Care Team 1. Have you been working on any lifestyle goals since your last visit?: No What is getting in the way?: no backpain 3. Are you pleased with your weight loss at this point?: No 4. How many hours of sleep to you get per night?: 4-6 5. What physical activity are you doing?: nothing 7. Do you drink sugar-sweetened beverages (regular soda or sweetened coffee or tea)?: Yes 8. What would you like to discuss today?: weight loss. Post-surgical information: 5. Does the patient snack?: Neg REVIEW OF SYSTEMS: A complete 10-point ROS was negative with the exception of the following: Review of symptoms positive for the following: Fatigue Dental Problems Low Back Pain Pertinant negatives: Dizziness Headaches Excessive burping Palpations Chest Pain Nausea Shortness of Breath At Rest Shortness of Breath Walking Blurry Vision Objective: Vitals: 11/20/19 1101 Weight: (!) 337 lb (152.9 kg) General: Alert, oriented, NAD Respiratory: Talking in full sentences. Nonlabored breathing. Psych: Affect is normal, patient is appropriate, grooming is appropriate. -RUQ ultrasound scan 06/27/2019 : Hepatic steatosis, otherwise unremarkable. PHQ9 Scores PHQ-9 11/06/2019 09/25/2019 07/21/2019 PHQ-9 Score Total 16 14 21 Q1: Loss of Int/Pleas +++ +++ +++ Q2: Depressed mood +++ ++ + Q3: Sleep problems +++ +++ +++ Q4: Tired/Low Energy +++ +++ +++ Q5: Appetite change +++ +++ +++ Q6: Feelings of failure + - ++ Q7: Concentration Prob - - +++ Q8: Slow or Restless - - +++ Q9: Thought Self Harm - - - Date PHQ9 was completed - 09/25/2019 - Index Date: 03/14/2019 ASSESSMENT/PLAN We will work together to treat the following obesity-associated medical conditions and conditions exacerbated by or contributing to weight gain by aggressive management of weight: ICD-10-CM 1. Morbid obesity with BMI of 50.0-59.9, adult ([facility]) E66.01 Z68.43 2. Sleep apnea, unspecified type G47.30 3. Overactive bladder N32.81 4. Depression, unspecified depression type ([facility]) F32.9 5. Mixed stress and urge urinary incontinence N39.46 The patient would like to pursue a surgical intervention for weight loss at this time. - vitamin-D deficiency: Overdue 12 week Vit D recheck. -depression symptoms and back pain continue to severely impact her ability to adhere to lifestyle modification. She will continue to focus addressing mood with psychology and psychiatry. -The patient does have signs of emotionally dysregulated food intake and /or eating disorder is working with psychology for further evaluation of these symptoms. -Nutrition: working with blood bank worker. Currently finding it very difficult to adhere to recommendations. -Exercise: hold off on PT referral for weight loss at present. Currently working with PT for back pain and ortho for bilateral knee pain plus awaiting appointment with physical medicine rehabilitation -Medications: -Patient is currently taking the following medicaton with the potential side effect of weight loss:none -Patient is currently taking the folllowing medications with the potential side effect for weight gain: Prozac (usually weight neutral) -Potential future medications to trial for additional weight loss include the following: Wellbutrin, GLP-1 (no Hx of pancreatitis, thyroid cancer), Metformin, Topiramate (no history of renal calculi,glaucoma, but can worsen mood), Phentermine. -The following weight-loss medications may not be recommended for this patient: Naltrexone (intolerable GI side effects) Patient is an appropriate candidate for bariatric surgery from a medical standpoint and may continue surgical evaluation with the blood bank worker, psychologist, and physical therapist. However, the patient may have additional risk factors for surgery including emotionally dysregulated food intake, active depression : these areas need to be focused on currently before moving forward with the surgical process. Patient expressed understanding and agreement with the plan. Disposition: follow up with me in 2-3 months. This visit was conducted via video. Location of clinician clinic. Location of patient home. Billing based on: Total time: 25 minutes with greater than 50% of that time being spent in conselingand coordination of care. documented in this encounter Nursing Notes Xin Ocampo RN - 11/20/2019 11:30 AM CDT Standard rooming via telephone with follow up SmartForm completed. Last seen on 09/25/2019 with recorded weight of 339 lbs. Weight History: Bariatric Weight History and Calculations Weight History Age at Onset of Obesity: 28 Preferred Weight: 150 lb Starting Weight: 335 lb Current Weight: 337 lb Height (in): 67 Weight Calculations Excess Weight: 190 lb 8 oz Current Weight Loss: -2 lb Goal Weight: 144 lb 8 oz Starting BMI: 52.2561707495655 Percent Exess Weight Loss: -1.2677131746292 Current BMI: 52.8357541882867 Percent Totoal Body Weight Loss: -0.092439381300324 Measurements Do you have a scale? YES - 337 lb Do you have a BP cuff? NO Eating patterns Patient is experiencing the following symptoms/problems: Back Pain Bloating Constipation Increased Food Cravings Joint Pain Pertinant Negatives Include Binge Eating Diarrhea Emotional Eating Eating Until Feeling Overfull GERD/Heartburn Increased Hunger Mood Changes Side Effects from Weight Loss Medications Medications: Compliance: YES Side effects: NO Would like to discuss: Weight loss Provided her my direct contact number for questions. Xin Ocampo RN 11:06 AM 11/20/2019 documented in this encounter Plan of Treatment Not on filedocumented as of this encounter Visit Diagnoses Diagnosis Morbid obesity with BMI of 50.0-59.9, ad ult (HRC) - Primary Sleep apnea, unspecified type Overactive bladder Hypertonicity of bladder Depression, unspecified depression type Mixed stress and urge urinary incontinen ce Mixed incontinence urge and stress (male )(female) documented in this encounter Care Teams Lan Manager Relationship Specialty Start Date End Date Sandy Viera MD PCP - General Family Practice 07/20/19 10/29/[address] [place] [address] documented as of this encounter
--- OUTSIDE RECORDS SUMMARY | 2021-11-07 19:40 | XMS_ITS | Encounter Summary ---
:1980 Author Organization [employer] Address [address] [address] Care Team Providers Name Role Phone Sandy Viera MD Primary Care Provider Reason for Visit Reason Comments Spine Lumbar Encounter Details Date Type Department Care Team Description 01/28/2020 Office Visit [facility] Pamela Beauchamp Chro volodymyr bilateral low Center - Physical PT back pain, Therapy [address] unspecified whether [address] [place], [place] [id number] (Primary Dx) [phone] (Wo rk) Social History Tobacco Use Types [...] encounter Progress Notes Pamela Beauchamp, PT - 01/28/2020 3:15 PM CST [facility] Physical Therapy Progress Note Visit Number: 7 Initial Certification Period: 11/13/2019 to 02/11/20 Referring Provider: Sandy Viera Visit Diagnosis: 1. Chronic bilateral low back pain, unspecified whether sciatica present (HRC) Precautions: morbid obesity SUBJECTIVE: Back pain is overall better, but remains intermittent and is worse with activity. Taking Tylenol occasionally for pain relief. Patient acknowledges that her depression is likely the biggest contributortowards her sedentary lifestyle, weight gain, and subsequent low back pain. OBJECTIVE Current Objective Findings: Ambulation: increased spinal lordosis, Trendelenberg Significant weakness noted in core & LE musculature Treatment/Education Today: Therapeutic activity x 30 minutes: -discussed sunlight and how it helps with depression. Consider looking into getting a light therapy lamp to use at home. Encouraged to raise blinds at home and sit by a asia window when possible. -discussed the importance of water for health. Encouraged her to keep glass of water by her at all times to increase intake. -made a goal of setting an alarm for every hour and when it goes off to do 10 reps of an exercise (upper or lower body) or get up and move around. -discussed patient's goal of reducing screen time especially around apps such as [employer] to help with her mood and to help her reach her daily movement goals. Neuromuscular Re-education x 10 minutes: -diaphragmatic breathing x 10 reps, encouraged to perform 3 times per day focusing on slow inhale and exhale to reset nervous system and help with pain threshold Timed Code Treatment Minutes: 40 Total Treatment Minutes: 40 Current Home Exercise Program List: Access Code: [email or web address] Exercises Squat at Table - 10 reps [...] hold - 1-2x daily ASSESSMENT/PROGRESS TOWARD GOALS: Focused today on strategies to help patient better attain her health and movement goals. Functional Goals/Outcomes: HEP/Independent Management: Demonstrate independence with [...] to help with depression and movement goals. EAR MEDICINE MEDICAL DIRECTOR documented in this encounter Plan of Treatment Not on filedocumented as of this encounter Visit Diagnoses Diagnosis Chronic bilateral low back pain, unspeci fied whether sciatica present - Primary documented in this encounter Care Teams Aircraft Electrician Relationship Specialty Start Date End Date Sandy Viera MD PCP - General Family Practice 07/20/19 10/29/20 [address] [place] [address] documented as of this encounter
--- OUTSIDE RECORDS SUMMARY | 2021-11-07 19:40 | XMS_ITS | Encounter Summary ---
:1980 Author Organization [employer] Address [address] [place] [address] Care Team Providers Name Role Phone Sandy Viera MD Primary Care Provider Reason for Visit Reason Onset Date Comments No Show 02/07/2020 Encounter Details Date Type Department Care Team Description 02/07/2020 Telemedicine [facility] Rose Morrow [facility] CONRAD Louis CNP administrative purposes [address] [address] [facility] (Primary Dx) [place] [address] [place], [place] [phone] [id number] Social History Tobacco Use Types Packs/Day Years [...] Progress Notes Rose Morrow APRN, CNP - 02/07/2020 11:40 AM CST Patient was called 3 times and was unable to be reached to complete their Video/phone visit. ULATION SALES REPRESENTATIVE Diamond Card LPN - 02/07/2020 11:40 AM CST Called to reschedule video visit patient was transferred to triage. Patient states needs to speak with someone right now because of unable to eat, leave room, so spoke with triage and triage will speakto patient. ULATION SALES REPRESENTATIVE documented in this encounter Plan of Treatment Not on filedocumented as of this encounter Visit Diagnoses Diagnosis Encounters for administrative purposes - Primary Encounters for unspecified administrativ e purpose documented in this encounter Care Teams Wind Turbine Mechanic Relationship Specialty Start Date End Date Sandy Viera MD PCP - General Family Practice 07/20/19 10/29/20 [address] [address] [place] [address] documented as of this encounter
--- OUTSIDE RECORDS SUMMARY | 2021-11-07 19:40 | XMS_ITS | Encounter Summary ---
:1980 Author Organization [facility] [facility] Address [address], [place] [address] Care Team Providers Name Role Phone Sandy Viera MD Primary Care Provider Reason for Visit Reason Comments Spine Lumbar Therapies (Routine) - Closed Specialty Diagnoses / Procedures Referred By Contact Refer red To Contact Diagnoses Chronic low back pain, unspecified back pain laterality, unspecified [place] [address] [place] [address] Referral ID Status Reason Start Date Expiration Date Visits Requ ested Visits Authorized Closed 11/06/2019 01/05/2020 1 1 Encounter Details Date Type Department Care Team Description 11/19/2019 Office Visit [facility] Pamela Beauchamp, Ty volodymyr bilateral low Center - Physical PT back pain, Therapy [address] unspecified whether [address] [place], [place] [address] (Primary Dx) [phone] (Wo rk) Social History Tobacco Use Types [...] encounter Progress Notes Pamela Beauchamp, PT - 11/19/2019 3:15 PM CDT [facility] Therapy Progress Note Visit Number: 2 Initial Certification Period: 11/13/2019 to 02/11/20 Referring Provider: Sandy Viera Visit Diagnosis: 1. Chronic bilateral low back pain, unspecified whether sciatica present (HRC) Precautions: morbid obesity SUBJECTIVE: Unable to do the dishes or take a shower due to the back pain of standing for that amount of time. Walking from house to car is very difficult due to back pain as well. Has tried massage over the past week and feels this has made her pain worse. OBJECTIVE Current Objective Findings: Ambulation: increased spinal lordosis, Trendelenberg Significant weakness noted in core musculature Treatment/Education Today: Self-care x 15 minutes: -discussed the benefits of water aerobics class. Barriers at this time include swimwear for patient. -discussed heart rate and why it spikes during activities such as standing and short-distance walking. Explained that the heart is a muscle that can be trained in strength and endurance, but this requires more frequent movement throughout the day. -encouraged to hold off on getting more massages if these are not providing symptom relief. Therapeutic exercise x 10 minutes: -trunk flexion with sidebending in seated over physioball, added to HEP -standing trunk flexion at countertop x 5 reps, added to HEP Neuromuscular re-education x 15 minutes: -diaphragmatic breathing in seated to help with relaxation and central sensitization of symptoms -TNE regarding pain not meaning harm with ADL's and re-training the brain Timed Code Treatment Minutes: 40 Total Treatment Minutes: 40 Current Home Exercise Program List: Access Code: [email or web address] URL: [email or web address] Date: 11/19/2019 Prepared by: Jaylene Beauchamp Exercises Seated Diaphragmatic Breathing - 3-5 reps - 1 sets - 5 sec hold - 5x daily Seated Flexion Stretch with Egyptian Ball - 10 reps - 5 sec hold - 1-2x daily Standing Shoulder and Trunk Flexion at Table - 5 reps - 5-10 sec hold - 2-3x daily ASSESSMENT/PROGRESS TOWARD GOALS: Patient responded well to new exercises today and seemed open to TNE concepts discussed during today's treatment session. Will continue to benefit from skilled PT for pain relief strategies, strengthening, and postural education. Functional Goals/Outcomes: HEP/Independent Management: Demonstrate independence with HEP and self- management following each treatment session ADL's: Perform home management tasks with ease in 8-12 weeks. Stand for at least 5 minutes without increased symptoms in 2-4 weeks. Stand for at least 10 minutes without increased symptoms in 4-6 weeks. Ambulation: Ambulate for 15 minutes without increased symptoms in 8 weeks. PLAN: Work on standing posture using wall for cues. Work on finding core musculature with exercise documented in this encounter Plan of Treatment Scheduled Referrals Name Type Priority Associated Diagnoses Order [facility] Physical Therapy Referral Routine Chronic low back pain, O rdered: 11/06/2019 unspecified back pain laterality, unspecified whether sciatica present documented as of this encounter Visit Diagnoses Diagnosis Chronic bilateral low back pain, unspeci fied whether sciatica present - Primary documented in this encounter Care Teams Densitometrist Relationship Specialty Start Date End Date Sandy Viera MD PCP - General Family Practice 07/20/19 10/29/20 [address] [address] [place] [address] documented as of this encounter
--- OUTSIDE RECORDS SUMMARY | 2021-11-07 19:40 | XMS_ITS | Encounter Summary ---
:1980 Author Organization [facility] Address [address] [place] [address] Care Team Providers Name Role Phone Sandy Viera MD Primary Care Provider Reason for Visit Reason Comments Spine Lumbar Encounter Details Date Type Department Care Team Description 03/03/2020 [facility] [place] Pamela Beauchamp, Chronic bilateral low - Physical Therapy PT back pain, unspecified [address] [place] [address] [place] [address] present (Primary Dx) [phone] (Wo rk) Social History Tobacco Use Types [...] encounter Progress Notes Pamela Beauchamp, PT - 03/03/2020 3:15 PM CST Physical Therapy Re-certification of Plan of Care Re-certification Period: 03/03/2020 to 06/01/2020 Treatment diagnosis: Chronic bilateral low back pain Total visits in past certification period: 8 Updated status: See daily note below Current elizondo objective findings: See daily note below ASSESSMENT/PROGRESS TOWARD GOALS: Progress toward goals/functional outcomes: See daily note below Updated goals/functional outcomes for re-certification period: See daily note below PLAN: Frequency/duration: 1 time/week for 12 weeks Treatment Plan: Progress strengthening and aerobic endurance as tolerated to maximize tolerance withADL's Consent: Patient and/or family are in agreement with the updated plan. The service supervisor is completed by the therapist and the referring clinician's electronic signature certifies medical necessity for the plan above. [facility] Physical Therapy Progress Note Visit Number: 9 Initial Certification Period: 11/13/2019 to 02/11/20 Referring Provider: Sandy Viera Visit Diagnosis: 1. Chronic bilateral low back pain, unspecified whether sciatica present (HRC) Precautions: morbid obesity SUBJECTIVE: Patient states her back continues to significantly limit her standing and walking tolerance and feels like overall has not improved. She admits to still not doing much activity, but does state that herdepression seems to be improving and she is considering going through with gastric bypass surgery this year. OBJECTIVE Current Objective Findings: Ambulation: increased spinal lordosis, Trendelenberg Significant weakness noted in core & LE musculature Tenderness to palpation: left patellar tendon Treatment/Education Today: Therapeutic Activity x 30 minutes: -encouraged patient to track her steps every day and try to beat the number of steps she took the day before -educated about the importance of regular movement for low back pain -suggested consult with PM&R regarding continued high levels of low back pain Timed Code Treatment Minutes:30 Total Treatment Minutes: 30 Current Home Exercise Program List: Access Code: [email or web address] Exercises Squat at Table - 10 reps [...] hold - 1-2x daily ASSESSMENT/PROGRESS TOWARD GOALS: Suggest patient follow through on the orders that had been placed for Physical Medicine & Rehab to help with her pain management. Difficulty progressing with physical therapy due to lack of compliance with a home exercise program and limited tolerance with movement during PT sessions. However, didagree to one more session of PT next week to address her ongoing left knee pain. Then will plan to have patient continue PT if PM&R feels this would be appropriate. Functional Goals/Outcomes: HEP/Independent Management: Demonstrate independence with [...] to help with depression and movement goals. 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
--- OUTSIDE RECORDS SUMMARY | 2021-11-07 19:40 | XMS_ITS | Encounter Summary ---
:1980 Author Organization [facility] Address [address] [place] [address] Care Team Providers Name Role Phone Sandy Viera MD Primary Care Provider Reason for Visit Reason Comments Eye Exam Encounter Details Date Type Department Care Team Description 02/27/2020 Office Visit [facility] Exam[facility]ra on of eyes and vision (Primary Dx); Ophthalmology M, OD Regular astigmatism, bilateral; [address] [facility] Photo phobia of both eyes; [address] Pain of left eye; [place] [address] [place], [place] Keratitis sicca (HRC) [phone] (Wo rk) Social History Tobacco Use Types [...] as of this encounter Patient Instructions Patient InstructionsBon Rosa M, OD - 02/27/2020 8:20 AM CST Use artificial tears such as Systane Ultra or Refresh Relieva 1 drop in each eye 4 times a day as needed. Preservative free is recommended. Use a warm compress for 15 minutes, at least once daily. Soak a washcloth in warm water and seal it in a plastic bag. Close your eyes and place the compress on your eyes for 15 minutes. D MARKETING LEAD documented in this encounter Progress Notes Bon Rosa, OD - 02/27/2020 8:20 AM CST Patient is alert and feels well. Routine eye exam. ICD-10-CM 1. Examination of eyes and vision Z01.00 2. Regular astigmatism, bilateral H52.223 3. Photophobia of both eyes H53.143 4. Pain of left eye H57.12 5. Keratitis sicca (HRC) M35.01 Plan: Discussed findings with patient. Rx given for new glasses, tinted. Patient Instructions Use artificial tears such as Systane Ultra or Refresh Relieva 1 drop in each eye 4 times a day as needed. Preservative free is recommended. Use a warm compress for 15 minutes, at least once daily. Soak a washcloth in warm water and seal it in a plastic bag. Close your eyes and place the compress on your eyes for 15 minutes. If not improving, she will call me- see barn worker. Recheck 2 years or sooner as needed. 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
--- OUTSIDE RECORDS SUMMARY | 2021-11-07 19:41 | XMS_ITS | Encounter Summary ---
:1980 Author Organization [employer] Address [address] [place] [address] Care Team Providers Name Role Phone Sandy Viera MD Primary Care Provider Reason for Visit Reason Comments LAB RESULTS Encounter Details Date Type Department Care Team Description 08/17/2019 Telephone [facility] Kirk Viera MD LAB RESULTS [place] [place], [place] [id number] [place] [address] [phone] Social History Tobacco Use Types Packs/Day Years [...] documented as of this encounter Nursing Notes Dot Coreas LPN - 08/17/2019 2:23 PM CDT Spoke to patient, read message, patient has no questions. Dot Coreas LPN - 08/17/2019 2:23 PM CDT ----- Message from Sandy Viera MD sent at 08/17/2019 12:34 PM CDT ----- Notify patient that the vitamin-D is very low. Recommend to take vitamin-D 18644 IU every week for 12 doses and prescription has been faxed. After 12 doses recommend to take maintenance dose of vitamin-D 1000 IU daily. Thanks documented in this encounter Plan of Treatment Not on filedocumented as of this encounter Visit Diagnoses Not on filedocumented in this encounter Care Teams Hosiery Repairer Relationship Specialty Start Date End Date Sandy Viera MD PCP - General Family Practice 07/20/19 10/29/20 [address] [place] [address] documented as of this encounter
--- OUTSIDE RECORDS SUMMARY | 2021-11-07 19:41 | XMS_ITS | Encounter Summary ---
:1980 Author Organization [facility] Address [address], [place] [address] Care Team Providers Name Role Phone Unavailable Primary Care Provider Unavailable Reason for Visit Reason Comments Nutrition Counseling Encounter Details Date Type Department Care Team Description 06/19/2019 Telemedicine [place] Bariatric Ame Espinal, Morbid o besity with BMI of 50.0-59.9, adult (HRC); Surgery & Weight RDN, LD Sleep apnea, unspecified type Center [address] [facility] [address] [facility] [address] [place] [address] [phone] Social History Tobacco Use Types Packs/Day Years [...] encounter Progress Notes Ame Espinal, RD - 06/19/2019 9:[address] [facility] Education Medical Nutrition Therapy: Bariatric MWM Follow-Up This visit was conducted via video. Location of clinician clinic. Location of patient home. Billing based on: Time 30 minutes spent on the phone with the patient, with 100% in counseling and coordination of care. ASSESSMENT: Referring Provider: Carrie Gabriel BMI: Estimated body mass index is 52.47 kg/m?? as calculated from the following: Height as of an earlier encounter on 06/19/19: 5' 7 (170.2 cm). Weight as of an earlier encounter on 06/19/19: 335 lb (522273 g).. Since last RD visit: Doing well. Stomach pain, back pain, depression - Harvey referred to PCP formgmt of those. Low energy, working w/ sleep clinic (CPAP).Maintaining 3 meals/day, leftovers or fastfood. Ramadan currently. Has tried Slimfast shakes, feels hungry when drinks them - discussed how itwas to taste test in preparation for surgery and if wants to use them currently should use as a snack or meal in combination fruit, toast, etc. Drinks pop for caffeine. Wants surgery for wt loss and wants to have another child. Patient is not an appropriate candidate for desired bariatric surgery based on current dietary habits. Patient would likely be a better candidate by 3 meals/day consistency, adequate water intake, holding fluids from meals, mindful eating, fruit or vegetable at meals Patient will continue medical weight management visits as required by insurance prior to consideration for bariatric surgery. Patient will return for follow up with dietitian to demonstrate lifestyle changes as noted above. Exercise: Patient is not engaging in physical activity. DIAGNOSIS: Nutrition Diagnosis: Overweight/Obesity (NC 3.3). related to: Intake, physical inactivity as evidenced by: BMI. We will continue to treat the following obesity-associated medical conditions and conditions exacerbated by or contributing to weight gain by aggressive management of weight: CAMRYN INTERVENTION: Healthy Diet and Meal planning. Patient verbalizes understanding of the education. MONITORING AND EVALUATION: Patient identified goals: 1. At least 48 fl oz water daily. Set alarms on phone. 2. Maintain 3 meals/day including vegetables/fruit. Follow up with dietitian in one month for medical weight management. Future areas of discussion: Water intake, holding fluids from meals, portion size, fruit/vegetable intake. Time: 30 minutes. documented in this encounter Plan of Treatment Not on filedocumented as of this encounter Visit Diagnoses Diagnosis Morbid obesity with BMI of 50.0-59.9, ad ult (HRC) Sleep apnea, unspecified type documented in this encounter
--- OUTSIDE RECORDS SUMMARY | 2021-11-07 19:41 | XMS_ITS | Encounter Summary ---
:1980 Author Organization [facility] Address [address] [place] [address] Care Team Providers Name Role Phone Unavailable Primary Care Provider Unavailable Reason for Visit Reason Comments Follow-up Encounter Details Date Type Department Care Team Description 06/19/2019 Telemedicine [place] Bariatric Surgery Carrie Ascencio, Morbid obesity with BMI of 50.0-59.9, adult (HRC) (Primary Dx); & Weight Center [facility] Sleep apnea, unspecified type; [address] [facility] [address] veractive bladder; [address] Depression, [place] [address] [phone] Social History Tobacco Use Types Packs/Day Years [...] - Inhaled Oxygen - - Concentration Weight 152 kg (335 lb) 06/19/2019 8:59 AM Patient does not own CDT scale Height 170.2 cm (5' 7) 06/19/2019 8:59 AM CDT Body Mass Index 52.47 06/19/2019 8:59 AM CDT documented in this encounter Progress Notes Carrie Ascencio, [facility] - 06/19/2019 9:00 AM CDT Metabolic Health and Weight Management Follow up CHIEF COMPLAINT Chief Complaint Patient presents with ??? Follow-up HPI Today's visit with Narinder Lucas was conducted as a video visit for implementation of social distancing secondary to the potential consequences of racquel COVID 19. Narinder Lucas is a 38 y.o. female with chronic medical problems including depression, OCD, overactive bladder, vitamin-D deficiency , who was referred/seeks to treat the following obesity-associated medical conditions by aggressive management of weight: Obstructive sleep apnea (not using CPAP consistently as unable to tolerate mask), weight-bearing joint pain, stress incontinence. Initially started on naltrexone by her primary care provider for the intention of weight loss. She subsequently stopped taking it secondary to side effects of nausea and diarrhea. Her primary concerns today are of lower back pain, low mood and bloating sensation and also urinary issues for which she is following with urology. Endorses poor sleep quality (has been referred to sleep clinic) with day time somnolence which makesit difficult for her to adhere to nutritional changes and physical activity. Endorses being sedentary throughout most of the day. Patient's weight history is as follows: Bariatric Weight History and Calculations Weight History Age at Onset of Obesity: 28 Preferred Weight: 150 lb Starting Weight: 335 lb Current Weight: 335 lb Height (in): 67 Weight Calculations Excess Weight: 190 lb 8 oz Current Weight Loss: 0 lb Goal Weight: 144 lb 8 oz Starting BMI: 52.6316350224299 Percent Exess Weight Loss: 0 Current BMI: 52.8635142069864 Percent Totoal Body Weight Loss: 0 She follows with psychiatry : Dr Renan Wilson, in [place] and a psychologist, Alfred, every , at [facility] in [place]. Intends to attempt conception again in the future. Would like to lose weight first. Currently not onany contraception. Denies any prior self harm or suicidal ideation. Denies currently actively or PMHx of GERD symptoms. Does have gallbladder in-situ. Patient has made previous weight loss attempts: Yes [facility] Assessment: Updating Your Care Team 1. Have you been working on any lifestyle goals since your last visit?: Yes What goals?: Watching what I eat. What Side Effects?: abdominal pain- D/C medication 3. Are you pleased with your weight loss at this point?: No 4. How many hours of sleep to you get per night?: 6-7 5. What physical activity are you doing?: nothing 7. Do you drink sugar-sweetened beverages (regular soda or sweetened coffee or tea)?: Yes Post-surgical information: 5. Does the patient snack?: Neg REVIEW OF SYSTEMS: A complete 10-point ROS was negative with the exception of the following: Review of symptoms positive for the following: Fatigue Dental Problems Low Back Pain Pertinant negatives: Dizziness Headaches Excessive burping Palpations Chest Pain Nausea Shortness of Breath At Rest Shortness of Breath Walking Blurry Vision Objective: There are no preventive care reminders to display for this patient. BP Readings from Last 1 Encounters: 03/21/19 113/82 Lab Results Component Value Date Cholesterol 197 06/09/2018 HDL Cholesterol 40 06/09/2018 Triglyceride 112 06/09/2018 LDL, Calculated 135 (H) 06/09/2018 Lab Results Component Value Date Hemoglobin A1C 5.5 03/14/2019 ASSESSMENT/PLAN We will work together to treat the following obesity-associated medical conditions and conditions exacerbated by or contributing to weight gain by aggressive management of weight: ICD-10-CM 1. Morbid obesity with BMI of 50.0-59.9, adult ([facility]) E66.01 Z68.43 2. Sleep apnea, unspecified type G47.30 3. Overactive bladder N32.81 4. Depression, unspecified depression type ([facility]) F32.9 The patient would like to pursue a surgical intervention for weight loss at this time. - Labs to evaluate for obesity- associated comorbid issues: outstanding. -The patient does have signs of emotionally dysregulated food intake and /or eating disorder is working with psychology for further evaluation of these symptoms. -Nutrition: working with printing sales representative. -Exercise: Patient was referred to PT for additional assistance with developing a home exercise regimen. Has not yet made initial appointment. -Medications: -Patient is currently taking the following medicaton with the potential side effect of weight loss:none -Patient is currently taking the folllowing medications with the potential side effect for weight gain: Prozac -Potential future medications to trial for additional weight loss include the following: Wellbutrin, GLP-1 (no Hx of pancreatitis, thyroid cancer), Metformin, Topiramate (no history of renal calculi,glaucoma), Phentermine. -The following weight-loss medications may not be recommended for this patient: Naltrexone (intolerable GI side effects) Managed expectations of timeline to surgery and the need for being fully emotionally and physically ready to use the tool of bariatric surgery to it's fullest advantage. -RUQ ultrasound scan for evaluation of gallstones not yet scheduled. Will defer to once non essential imaging occurring again. Patient is an appropriate candidate for bariatric surgery from a medical standpoint and may continue surgical evaluation with the printing sales representative, psychologist, and physical therapist. However, the patient may have additional risk factors for surgery including emotionally dysregulated food intake, active depression. Disposition: follow up with me in 2-3 months. This visit was conducted via video. Location of clinician clinic. Location of patient home. Billing based on: Total time: 25 minutes with greater than 50% of that time being spent in conselingand coordination of care. documented in this encounter Nursing Notes Xin Ocampo RN - 06/19/2019 9:00 AM CDT Standard rooming via telephone with follow up SmartForm completed. Last seen on 04/24/2019 with measured weight 335 lbs. Reported weight: 335 lb with height of 67 in with BMI calculated as 52.47. This represents a estimated weight loss of 0 lbs, percentage of excess weight: 0 %. Pt's BP unable to asses. Pt would like to discuss: How to lose weight. Patient stopped taking Naltrexone because it gave patient abdominal pain Provided her my direct contact number for questions. Xin Ocampo RN 8:57 AM 06/19/2019 documented in this encounter Plan of Treatment Not on filedocumented as of this encounter Visit Diagnoses Diagnosis Morbid obesity with BMI of 50.0-59.9, ad ult (HRC) - Primary Sleep apnea, unspecified type Overactive bladder Hypertonicity of bladder Depression, unspecified depression type documented in this encounter
--- OUTSIDE RECORDS SUMMARY | 2021-11-07 19:41 | XMS_ITS | Encounter Summary ---
:1980 Author Organization [facility] Address [address] [place] [address] Care Team Providers Name Role Phone Sandy Viera MD Primary Care Provider Encounter Details Date Type Department Care Team Description 10/27/[address] [facility] [id number], Drive-Up Urinary urgency; [address] Urinary frequency; [place], [place] Mixed s tress and urge urinary incontinence; [address] OAB (overactive bladder) [phone] Social History Tobacco Use Types Packs/Day Years [...] Procedure Name Priority Date/Time Associated Comments Diagnosis 2019 NOVEL Routine 10/27/2019 11:12 Urinary urgency Results for this CORONAVIRUS AM CDT Urinary frequenc y procedure are in Mixed stress and the results urge urinary section. incontinence OAB (overactive bladder) documented in this encounter Results 2019 Novel Coronavirus (COVID-19) (10/27/2019 11:12 AM CDT) [facility] Method Time Signature COVID-19 Not Not 10/28/2019 [facility] Interpretation Detected Detected 3:57 AM CENTRAL LAB CDT Specimen Anatomical Collection Method Collection Time Receive d Time (Source) Location / / Volume Laterality Swab (Source Non-blood 10/27/2019 11:12 10/27/2019 1:32 Required) Collection / AM CDT PM CDT Unknown Narrative [facility] - 10/28/2019 3:57 AM CDT Test performed by Printing Machine Operator Mediated Amplification. TMA has been shown to be equivalent to commercial real-time PCR t ests. This test has been authorized by the FDA under an Emergency Use Authorization (EUA) for use by authorized laboratories. Mera Arias APRN, [facility]_1 Performing Organization Address City/State/ZIP Code Phon e Number [facility] [address] [address] documented in this encounter Visit Diagnoses Diagnosis Urinary urgency Urgency of urination Urinary frequency Mixed stress and urge urinary incontinen ce Mixed incontinence urge and stress (male )(female) OAB (overactive bladder) Hypertonicity of bladder documented in this encounter Care Teams Head Wrestling Coach Relationship Specialty Start Date End Date Sandy Viera MD PCP - General Family Practice 07/20/19 10/29/20 [address] [address] [place] [address] documented as of this encounter
--- OUTSIDE RECORDS SUMMARY | 2021-11-07 19:41 | XMS_ITS | Encounter Summary ---
:1980 Author Organization [facility] Address [address] [place] [address] Care Team Providers Name Role Phone Sandy Viera MD Primary Care Provider Encounter Details Date Type Department Care Team Description 08/16/2019 Lab Visit [facility] Morbid obesity with BMI of 50.0- 59.9, adult (HRC); Laboratory Fatigue, unspecified type; [id number] [place] [address] Social History Tobacco Use [...] documented as of this encounter Progress Notes Sandy Viera MD - 08/16/2019 10:40 AM CDT Notify patient that the vitamin-D is very low. Recommend to take vitamin-D 30561 IU every week for 12 doses and prescription has been faxed. After 12 doses recommend to take maintenance dose of vitamin-D 1000 IU daily. Thanks documented in this encounter Plan of Treatment Not on filedocumented as of this encounter Procedures Procedure Name Priority Date/Time Associated Diagnosis Comme nts CBC AND DIFFERENTIAL Routine 08/16/2019 11:26 Fatigue, unspeci fied Results for this PANEL AM CDT type procedure are i n the results section. VITAMIN B6 (8HR FAST Routine 08/16/2019 11:26 Morbid obesity w ith Results for this RECOMMENDED) AM CDT BMI of 50.0-59.9, procedure are in adult (HRC) the results section. VITAMIN B1, BLOOD Routine 08/16/2019 11:26 Morbid obesity with Results for this AM CDT BMI of 50.0-59.9, procedure are in adult (HRC) the results section. INSULIN, SERUM (10HR Routine 08/16/2019 11:26 Morbid obesity w ith Results for this FAST RECOMMENDED) AM CDT BMI of 50.0-59.9, proce dure are in adult (HRC) the results section. LIPID PANEL AND Routine 08/16/2019 11:26 Morbid obesity with R esults for this DIRECT LDL(IF NEEDED) AM CDT BMI of 50.0-59.9, p rocedure are in adult (HRC) the results section. VITAMIN D 25-HYDROXY, Routine 08/16/2019 11:26 Morbid obesity with Results for this TOTAL AM CDT BMI of 50.0-59.9, procedure are in adult (HRC) the results section. COMPLETE BLOOD Routine 08/16/2019 11:26 Fatigue, unspecified R esults for this COUNT-W/DIFF AM CDT type procedure are i n the results section. TSH, SENSITIVE Routine 08/16/2019 11:26 Morbid obesity with Re sults for this AM CDT BMI of 50.0-59.9, procedure are in adult (HRC) the results section. BASIC METABOLIC PANEL STAT 08/16/2019 11:26 Fatigue, unspec ified Results for this AM CDT type procedure are i n the results section. ALT (SGPT) Routine 08/16/2019 11:26 Morbid obesity with Resu lts for this AM CDT BMI of 50.0-59.9, procedure are in adult (HRC) the results section. AST Routine 08/16/2019 11:26 Morbid obesity with Resu lts for this AM CDT BMI of 50.0-59.9, procedure are in adult (HRC) the results section. documented in this encounter Results Complete Blood Count-W/Diff (08/16/2019 11:26 AM CDT) P athologist Signature WBC 5.6 3.5 - 10.5 08/16/2019 [facility] x10(9)/L 11:34 AM CDT LABORATORY RBC 4.22 3.90 - 08/16/2019 [facility] 5.03 11:34 AM CDT LABOR[facility]ORY x10(12)/L Hemoglobin 12.9 12.0 - 08/16/2019 [facility] 15.5 g/dL 11:34 AM CDT LABORATORY HCT 38.8 34.9 - 08/16/2019 [facility] 44.5 % 11:34 AM CDT LABORATORY MCV 91.9 80.0 - 08/16/2019 [facility] 100.0 fL 11:34 AM CDT LABORATORY MCH 30.6 27.6 - 08/16/2019 [facility] 33.3 pg 11:34 AM CDT LABORATORY MCHC 33.2 31.5 - 08/16/2019 [facility] 35.2 g/dL 11:34 AM CDT LABORATORY RDW 13.3 11.9 - 08/16/2019 [facility] 15.5 % 11:34 AM CDT LABORATORY Platelets 260 150 - 450 08/16/2019 [facility] x10(9)/L 11:34 AM CDT LABORATORY Automated NRBC 0 <=0 /100 08/16/2019 [facility] WBC 11:34 AM CDT LABORATORY Neutrophil 2.7 1.7 - 7.0 08/16/2019 [facility] Absolute 10(9)/L 11:34 AM CDT LABORATORY Lymphocyte 2.3 1.0 - 4.8 08/16/2019 [facility] Absolute 10(9)/L 11:34 AM CDT LABORATORY Monocytes 0.4 0.2 - 0.9 08/16/2019 [facility] Absolute 10(9)/L 11:34 AM CDT LABORATORY Eosinophil 0.1 0.0 - 0.5 08/16/2019 [facility] Absolute 10(9)/L 11:34 AM CDT LABORATORY Basophil 0.0 0.0 - 0.3 08/16/2019 [facility] Absolute 10(9)/L 11:34 AM CDT LABORATORY Immature Gran % 0.2 0.0 - 0.5 08/16/2019 [place] % 11:34 AM CDT LABORATORY Specimen Anatomical Collection Method / Collection Time Recei adama Time (Source) Location / Volume Laterality Blood Venipuncture / 08/16/2019 11:26 0 Unknown AM CDT 11:30 AM CDT Sandy Viera MD LAB_1 Performing Organization Address City/State/ZIP Code Phon e Number [facility] [address] [place] [address] (ABNORMAL) Basic Metabolic Panel (08/16/2019 11:26 AM CDT) Analysis Performed At Patho logist Time Signature Sodium 140 136 - 145 08/16/2019 [facility] mmol/L 11:59 AM CDT LABORATORY Potassium 4.4 3.5 - 5.1 08/16/2019 [facility] mmol/L 11:59 AM CDT LABORATORY Chloride 107 98 - 109 08/16/2019 [facility] mmol/L 11:59 AM CDT LABORATORY CO2 25 20 - 29 08/16/2019 [facility] mmol/L 11:59 AM CDT LABORATORY Anion Gap 8 7 - 16 08/16/2019 [facility] mmol/L 11:59 AM CDT LABORATORY Calcium 8.8 8.4 - 10.4 08/16/2019 [facility] mg/dL 11:59 AM CDT LABORATORY BUN 10 7 - 26 08/16/2019 [facility] mg/dL 11:59 AM CDT LABORATORY Creatinine 0.70 0.55 - 08/16/2019 [facility] 1.02 mg/dL 11:59 AM CDT LABORATORY GFR, Estimated >60 >60 08/16/2019 [facility] mL/min/1.7 11:59 AM CDT LABORATORY 3m2 Glucose 112 (H) 70 - 100 08/16/2019 [facility] mg/dL 11:59 AM CDT LABORATORY Comment: The given reference range is fo r the fasting state. Non-fasting reference range for glucose is 70 - 180 mg/dL. Hours Fasting 12 08/16/2019 11:59 AM CDT [facility] Specimen Anatomical Collection Method / Collection Time Recei adama Time (Source) Location / Volume Laterality Blood Venipuncture / 08/16/2019 11:26 0 Unknown AM CDT 11:29 AM CDT Sandy Viera MD LAB_1 Performing Organization Address City/State/ZIP Code Phon e Number [facility] [address] [place] [address] Vitamin B1, Blood (08/16/2019 11:26 AM CDT) athologist Signature Vitamin B1 82 70 - 180 08/19/2019 [facility] nmol/L 6:22 AM CDT Comment: INTERPRETIVE INFORMATION: Vitamin B1, Wh ole Blood This assay measures the concentration of thiamine diphosphate (TDP), the primary active form of vitami n B1. Approximately 90 percent of vitamin B1 present in whole b lood is TDP. Thiamine and thiamine monophosphate, which comprise t he remaining 10 percent, are not measured. Test developed and characteristics deter mined by [facility]. See Compliance Statement B : [email or web address] Performed By: [facility] [address] [place] [id number] Hand Ornament Maker: Lilibeth Wick, [place] Specimen Anatomical Collection Method / Collection Time Recei adama Time (Source) Location / Volume Laterality Blood Venipuncture / 08/16/2019 11:26 0 Unknown AM CDT 11:30 AM CDT Carrie Byersdonald [facility] LAB_1 Performing Organization Address City/State/ZIP Code Phon e Number [facility] [address] [place], [place] [phone] Vitamin B6 (8Hr Fast Recommended) (08/16/2019 11:26 AM CDT) athologist Signature Vitamin B6 26.3 20.0 - 08/18/2019 [facility] 125.0 2:34 PM CDT nmol/L Comment: INTERPRETIVE INFORMATION: Vitamin B6 (Py ridoxal 5-Phosphate) Pyridoxal 5'-phosphate measured in a spe cimen collected following an 8-hour or overnight fast accurately i ndicates vitamin B6 nutritional status. Non-fasting specimen concentration reflects recent vitamin intake. Test developed and characteristics deter mined by [facility]. See Compliance Statement B : [email or web address] Performed By: [facility] [address] [place] [address] Hand Ornament Maker: Lilibeth Wick, MS Specimen Anatomical Collection Method / Collection Time Recei adama Time (Source) Location / Volume Laterality Blood Venipuncture / 08/16/2019 11:26 0 Unknown AM CDT 12:07 PM CDT Carrie Ascencio [facility] LAB_1 Performing Organization Address [facility]/ZIP Code Phon e Number [facility] [address] [phone] (ABNORMAL) Vitamin D 25-Hydroxy, Total (08/16/2019 11:26 AM CDT) athologist Signature Vitamin D, 9 (L) 30 - 80 08/16/2019 [facility] 25-OH, Total ng/mL 3:53 PM CDT LABORATORY Specimen Anatomical Collection Method / Collection Time Recei adama Time (Source) Location / Volume Laterality Blood Venipuncture / 08/16/2019 11:26 0 Unknown AM CDT 11:30 AM CDT Narrative [facility] - 08/16/2019 3:53 P M CDT Expected values Deficiency: <20 ng/mL Insufficiency: 20-29 ng/mL Optimum: 30-80 ng/mL Possible toxicity: >80 ng/mL Carrie Ascencio [facility] LAB_1 Performing Organization Address [facility] Phon e Number [facility] [address] [place] [address] TSH (08/16/2019 11:26 AM CDT) athologist Signature TSH, Sensitive 1.53 0.30 - 08/16/2019 [facility] 4.50 3:53 PM CDT LABORATORY uIU/mL Specimen Anatomical Collection Method / Collection Time Recei adama Time (Source) Location / Volume Laterality Blood Venipuncture / 08/16/2019 11:26 0 Unknown AM CDT 11:30 AM CDT Carrie Ascencio [facility] LAB_1 Performing Organization Address [facility] Phon e Number [facility] [address] [place] [address] (ABNORMAL) Lipid Panel and Direct LDL(If Needed) (08/16/2019 11:26 AM CDT) Patholo gist Method Time Signature Cholesterol 211 (H) 0 - 199 08/16/2019 [facility] mg/dL 11:59 AM CDT LABORATORY Triglyceride 121 <=149 08/16/2019 [facility] mg/dL 11:59 AM CDT LABORATORY HDL Cholesterol 40 >=40 08/16/2019 [facility] mg/dL 11:59 AM CDT LABORATORY LDL, Calculated 147 (H) <130 08/16/2019 [facility] mg/dL 11:59 AM CDT LABORATORY Non HDL Chol, 171 mg/dL 08/16/2019 [facility] Calculated 11:59 AM CDT LABORATORY Cholesterol/HDL 5.3 08/16/2019 [facility] Ratio 11:59 AM CDT LABORATORY Hours Fasting 12 08/16/2019 [facility] 11:59 AM CDT LABORATORY Specimen Anatomical Collection Method / Collection Time Recei adama Time (Source) Location / Volume Laterality Blood Venipuncture / 08/16/2019 11:26 0 Unknown AM CDT 11:29 AM CDT Carrie Ascencio [facility] LAB_1 Performing Organization Address City/[facility]/ZIP Code Phon e Number [facility] [address] [place] [phone] ALT (SGPT) (08/16/2019 11:26 AM CDT) P athologist Signature ALT (SGPT) 35 0 - 55 U/L 08/16/2019 [facility] 11:59 AM CDT LABORATORY Specimen Anatomical Collection Method / Collection Time Recei adama Time (Source) Location / Volume Laterality Blood Venipuncture / 08/16/2019 11:26 0 Unknown AM CDT 11:29 AM CDT Carrie Ascencio [facility] LAB_1 Performing Organization Address City/[facility]/ZIP Code Phon e Number [facility] [address] [place] [address] AST (08/16/2019 11:26 AM CDT) P athologist Signature AST (SGOT) 20 10 - 40 U/L 08/16/2019 [facility] 11:59 AM CDT LABORATORY Specimen Anatomical Collection Method / Collection Time Recei adama Time (Source) Location / Volume Laterality Blood Venipuncture / 08/16/2019 11:26 0 Unknown AM CDT 11:29 AM CDT Carrie Ascencio [facility] LAB_1 Performing Organization Address City/State/ZIP Code Phon e Number [facility] [address] [place] [address] Insulin, Serum (10Hr Fast Recommended) (08/16/2019 11:26 AM CDT) [facility] gist Method Time Signature Insulin, Serum 17.9 1.9 - 23.0 08/17/2019 [facility] uIU/mL 11:15 AM CDT [facility] Specimen Anatomical Collection Method / Collection Time Recei adama Time (Source) Location / Volume Laterality Blood Venipuncture / 08/16/2019 11:26 0 Unknown AM CDT 11:30 AM CDT Carrie Ascencio [facility] LAB_1 Performing Organization Address City/[facility]/ZIP Code Phon e Number [facility] [address] [phone] documented in this encounter Visit Diagnoses Diagnosis Morbid obesity with BMI of 50.0-59.9, ad ult (HRC) Fatigue, unspecified type Vitamin D deficiency (HRC) Unspecified vitamin D deficiency documented in this encounter Care Teams Compliance Investigator Relationship Specialty Start Date End Date Sandy Viera MD PCP - General Family Practice 07/20/19 10/29/20 [address] [address] [place] [address] documented as of this encounter
--- OUTSIDE RECORDS SUMMARY | 2021-11-07 19:41 | XMS_ITS | Encounter Summary ---
:1980 Author Organization [facility] Address [address] [address] Care Team Providers Name Role Phone Sandy iVera MD Primary Care Provider Reason for Visit Reason Comments Follow-up, NOS Encounter Details Date Type Department Care Team Description 11/08/2019 Phone Visit Stephanie Bedolla, Martín l enuresis (Primary Dx); [place] [address] Urinary urgency; Urology [address] OAB (overactive bladder) [address] [place] [address] [phone] (Wo rk) Social History Tobacco Use Types [...] encounter Progress Notes Stephanie Patel MD - 11/08/2019 1:15 PM CDT Urology Progress Note Phone visit Narinder Lucas is a 39 y.o. female with a history of severe overactive bladder syndrome and significant nocturnal enuresis the patient underwent Botox injection to the bladder. Patient has had significant improvement but is still leaking some nights For the first week woke up dry but then after that she woke up wet Last night dry Has to push to get the last bit of the urine out. During the day a lot better with the leakage. Will still have some leakage when she goes from couch Will have pain after urination -- can last for up to hour Patient notes that overall she is pleased with the improvement, she was previously wet every night and now she has a number of nights which she is dry. She is also pleased with the improvement during the day where she has more time to get to the bathroom. Assessment: Severe overactive bladder Nocturnal enuresis PLAN: Postvoid residual and UA at a nurse's visit next week Follow-up in 3 months for symptom check We can consider repeat Botox with a slightly higher dose depending on the results of the PVR documented in this encounter Plan of Treatment Not on filedocumented as of this encounter Visit Diagnoses Diagnosis Nocturnal enuresis - Primary Urinary urgency Urgency of urination OAB (overactive bladder) Hypertonicity of bladder documented in this encounter Care Teams Treating Plant Pumper Relationship Specialty Start Date End Date Sandy Viera MD PCP - General Family Practice 07/20/19 10/29/20 [id number] [address] [place] [address] documented as of this encounter
--- OUTSIDE RECORDS SUMMARY | 2021-11-07 19:41 | XMS_ITS | Encounter Summary ---
:1980 Author [facility] Address [address] [place] [address] Care Team Providers Name Role Phone Sandy Viera MD Primary Care Provider Reason for Visit Auth/Cert Specialty Diagnoses / Procedures Referred By Contact Refer red To Contact Diagnoses Urinary frequency Urinary urgency Mixed stress and urge urinary incontinence Procedures CYSTOSCOPY with bladder botox injections Referral ID Status Reason Start Date Expiration Date Visits Requ ested Visits Authorized [id number] 1 1 Encounter Details Date Type Department Care Team Description 10/29/2019 Hospital Encounter [facility] Patel [facility] [address] [facility] [address] [place] [place] [address] [address] [place], [place] [phone] (Wo rk) Social History Tobacco Use Types [...] Sign Reading Time Taken Comments Blood Pressure 114/82 10/29/2019 5:51 PM CDT Pulse 100 10/29/2019 5:51 PM CDT Temperature 36.5 ??C (97.7 ??F) 10/29/2019 5:51 PM CDT Respiratory Rate 20 10/29/2019 5:51 PM CDT Oxygen Saturation 98% 10/29/2019 5:51 PM CDT Inhaled Oxygen Concentration - - Weight 152.9 kg (337 lb) 10/29/2019 4:23 PM CDT Height - - Body Mass Index 54.39 10/27/2019 9:58 AM CDT documented in this encounter Discharge Instructions Discharge Instr - Other Stephanie Lozoya MD - 10/29/2019 5:53 PM CDT Discharge instructions: PATIENT SPECIFIC INSTRUCTIONS: For any issues after discharge, please contact me or my nurse at [phone] or leave a message at [phone]. THINGS TO BE WORRIED ABOUT: Go to the Emergency Room, Urgent Care, or call Urology: *Temperature greater than 101 *Pain is not controlled with medications *Chest pain or shortness of breath GENERAL ACTIVITY: *You may shower *Take pain medications as indicated. *No heavy lifting or rigorous exercise. Walking and climbing stairs is okay *No driving while taking pain medications *As tolerated URINE: *You may have some blood in the urine, this is expected. DIET: *Plenty of water, fruits, and vegetables REMEMBER: It take 2-4 weeks for the botox to start taking effect. Do not get discouraged if the symptoms worsen initially and give some time for the symptoms to improve. documented in this encounter Medications at Time of Discharge Medication Sig Dispensed Refills Start Date End Date cholecalciferol (VITAMIN Take 1 Capsule by 12 Capsule 0 09/0712/24/2019 D3) 1.25 MG (39430 UT) mouth once every capsuleIndications: week for 90 days. Vitamin D deficiency (HRC) diapers Please dispense 90 Each 1 07/10/2019 0 adult nighttime diapers mirabegron (MYRBETRIQ) 50 Take 1 Tablet by 90 Tablet 3 04/0711/20/2019 MG 24 hour release mouth daily. tabletIndications: Mixed incontinence Multiple Vitamins-Iron Take 1 Tablet by 0 02/07/2020 (MULTIVITAMINS-IRON) mouth. tablet naproxen (NAPROSYN) 500 3 01/09/2019 1 MG tablet traZODone (DESYREL) 50 MG Take 50 mg by mouth 0 01/08/2020 tablet daily at bedtime. venlafaxine (EFFEXORXR) TK 1 C PO QD WITH 0 10/2301/08/2020 150 MG 24 hour release NICKOLAS capsule Vitamin D, 4 01/09/2019 02/07/2020 Ergocalciferol, 1.25 MG (99823 UT) CAPS documented as of this encounter H&P Notes Stephanie Patel MD - 10/29/2019 4:42 PM CDT Surgery Update for Preop History and Physical For 10/29/2019 scheduled procedure Update to H&P includes: Patient and/or family denies any health changes since the H&P This patient has been evaluated by me today and has been found to be a suitable candidate for surgery. Stephanie Patel MD 10/29/2019 Source Note - Rodrick Mg MD - 10/27/2019 9:30 AM CDT PREOPERATIVE ASSESSMENT Date of Service: 10/27/2019 Date of : 1980 Age: 38 y.o. Sex: female Preoperative Evaluation completed by: Rodrick Mg MD Primary care physician: Sandy Viera MD [phone] CHIEF COMPLAINT Pre-Operative Evaluation ANTICIPATED PROCEDURE Chief Complaint Patient presents with ??? Preop Exam [facility] DOS: 10/29/2019 for CYSTOSCOPY with bladder botox injections HISTORY OF PRESENT ILLNESS 38-year-old female with longstanding overactive bladder and urinary frequency, urgency and incontinence. Risk Factors/Review of Systems: (Please see flowsheets for details) Cardiovascular risks negative except for: Renal risks negative except for: Neuro risks negative except for: GI risks negative except for: Pulmonary risks negative except for: Obstructive sleep apnea: Endocrine/Nutrition risks negative except for: Hematologic Disease risks negative except for: Musculoskeletal/Skin risks negative except for: Mental Health risks negative except for: Depression: Code Status: Full Code, Other risk factors negative except for: Morbid Obesity (BMI>40): Complete review of systems is otherwise negative. Patient Active Problem List Diagnosis ??? Vitamin D deficiency ??? Sleep apnea ??? Depression (emotion) ??? Overactive bladder ??? Morbid obesity with BMI of 50.0-59.9, adult (C) ??? Urinary frequency ??? Urinary urgency ??? Mixed stress and urge urinary incontinence Past Medical History: Diagnosis Date ??? Depression (emotion) ??? Overactive bladder ??? Sleep apnea ??? Vitamin D deficiency Past Surgical History: Procedure Laterality Date ??? APPENDECTOMY 2016 ??? SECTION 2014 Family History Problem Relation Age of Onset ??? Hypertension Father Social History Tobacco Use ??? Smoking status: Never Smoker ??? Smokeless tobacco: Never Used Substance Use Topics ??? Alcohol use: Never Frequency: Never Current Outpatient Medications Medication Sig Dispense Refill ??? cholecalciferol (VITAMIN D3) 1.25 MG (74449 UT) capsule Take 1 Capsule by mouth once every week for 90 days. 12 Capsule 0 ??? diapers Please dispense adult nighttime diapers 90 Each 1 ??? mirabegron (MYRBETRIQ) 50 MG 24 hour release tablet Take 1 Tablet by mouth daily. 90 Tablet 3 ??? Multiple Vitamins-Iron (MULTIVITAMINS-IRON) tablet Take 1 Tablet by mouth. ??? naproxen (NAPROSYN) 500 MG tablet 3 ??? traZODone (DESYREL) 50 MG tablet Take 50 mg by mouth daily at bedtime. ??? venlafaxine (EFFEXORXR) 150 MG 24 hour release capsule TK 1 C PO QD WITH NCIKOLAS ??? Vitamin D, Ergocalciferol, 1.25 MG (29100 UT) CAPS 4 No current facility-administered medications for this visit. No Known Allergies PHYSICAL EXAMINATION Temp: 98.3 ??F (36.8 ??C) (10/27/19957) Pulse: (!) 111 (10/27/19957) BP: 111/89 (10/27/19957) Height: 5' 6 (167.6 cm) (10/27/19957) Weight: (!) 340 lb 4.8 oz (154.4 kg) (10/27/19957) BMI: 54.93 (10/27/19957) General Appearance: Normal HEENT: Normal Neck: Normal Lungs: Normal Heart: Normal Abdomen: Normal Extremities: Normal Skin: Normal Neurologic: Normal TEST RESULTS AND DATE EKG done: No Labs done: Today: 10/27/2019. Lab Visit on 10/27/2019 Component Date Value Ref Range Status ??? HCG, Urine 10/27/2019 Negative Negative Final . ASSESSMENT 1. Preoperative Assessment: This patient has been examined by me today and has been found to be a suitable candidate for surgery: Yes 2. ICD-10-CM 1. Pre-op evaluation Z01.818 Test Screen Urine CANCELED: ECG 12 Lead Outpatient 2. Overactive bladder N32.81 3. Mixed stress and urge urinary incontinence N39.46 4. Morbid obesity with BMI of 50.0-59.9, adult ([facility]) E66.01 Z68.43 5. Sleep apnea, unspecified type G47.30 6. Need for influenza vaccination Z23 Influenza IIV4 (Quadrivalent) 0.5 mL (12557) RECOMMENDATIONS AND PLAN Day of surgery testing: none Medication recommendations including insulin / diabetes: Avoid naproxen and all anti-inflammatories and aspirin prior to surgery. Additional screening recommended: no Consult (Cardiology/other): no Additional test results attached: none Recommend RT assessment post op for Oxygenation and ventilation monitoring: no Other: yes Recommend postop O2 saturation monitoring due to morbid obesity and sleep apnea. - Do not eat anything after midnight the evening before your surgery. - It is OK to drink water or Gatorade up to 4 hours before your surgery. - You may take medicines before surgery with a small sip of water ABOVE RECOMMENDATIONS WERE REVIEWED WITH PATIENT: yes Flu shot given today. Rodrick Mg MD 10/27/2019 documented in this encounter Procedure Notes Stephanie Patel MD - 10/29/2019 5:51 PM CDT OPERATIVE NOTE Pre op diagnosis: Bladder instability, overactive bladder Post op diagnosis: same Procedure: Cystoscopy with injection of botulinum toxin into detrusor muscle Surgeon: Stephanie Patel MD Findings: No abnormalities in the bladder Estimated blood loss: 0 ml Specimen: none Complications: None Disposition: Discharge home INDICATIONS FOR PROCEDURE: Narinder Lucas is a 38 y.o. female with a history of urinary urgency and frequency with urge incontinence that is unresponsive to oral medication. DESCRIPTION OF OPERATION: After obtaining informed consent, the patient was brought to the operating room. Adequate anesthesiawas established. The patient was positioned in the dorsal lithotomy and prepped and draped in the usual fashion. A 22-Nepali injection scope was used. 100 units of botulinum toxin were dissolved in 10 cc injectable saline. The injection scope was placed and the botulinum toxin was injected through an injection needle into 20 or more spots around the bladder, avoiding the bladder neck and the trigone. The patient's bladder was drained. A urojet was placed. The patient was awakened from anesthesia. The patient tolerated the procedure well. documented in this encounter Plan of Treatment Not on filedocumented as of this encounter Procedures Procedure Name Priority Date/Time Associated Diagnosis Comme nts CYSTOSCOPIC 10/29/2019 5:08 PM Urinary frequ ency INJECTION BLADDER CDT Urinary urgenc y BOTOX Mixed stress and urge urinary incontinence HCG,QUALITATIVE, Routine 10/29/2019 4:42 PM Resul ts for this SERUM CDT procedure ar e in the results section. documented in this encounter Results Test Screen Blood (SPREG) (10/29/2019 4:42 PM CDT) Analysis Performed At Patho logist Time Signature HCG, Serum Negative Negative 10/29/2019 [facility] 5:03 PM CDT LABORATORY Specimen Anatomical Collection Method / Collection Time Recei adama Time (Source) Location / Volume Laterality Blood Venipuncture / 10/29/2019 4:42 10/29/2019 4:46 Unknown PM CDT PM CDT Stephanie Patel MD LAB_1 Performing Organization Address City/State/ZIP Code Phon e Number [facility] [address] [place] [address] documented in this encounter Visit Diagnoses Diagnosis Urinary frequency Urinary urgency Urgency of urination Mixed stress and urge urinary incontinen ce Mixed incontinence urge and stress (male )(female) documented in this encounter Admitting Diagnoses Diagnosis Urinary frequency Urinary urgency Urgency of urination Mixed stress and urge urinary incontinen ce Mixed incontinence urge and stress (male )(female) documented in this encounter Administered Medications Inactive Administered Medications - up to 3 most recent administrations Medication Order MAR Action Action Date Dose Rate Site botulinum toxin type A Given 10/29/2019 5:38 PM 100 Units Other (Comment) (BOTOX) injection CDT ONCE PRN, Starting on Tue10/29/19 at 1740, Until Tue10/29/19 at 2100, Intra-op fentaNYL (SUBLIMAZE) injection 25-50 mcg 25-50 mcg, Intravenous, [id number], Pain, Procedure, Starting on Tue10/29/19 at 1647, Until Tue10/29/19 at 2100, For 2 doses, As directed by anesthesiologist, Pre-op fentaNYL (SUBLIMAZE) injection 25-50 mcg 25-50 mcg, Intravenous, [id number], Other, Moderate to Severe Pain (pain score 5 and above) in the immediate postop period when faster on-s et, short acting agent is desired., Starting on Tue10/29/19 at 164 7, Until Tue10/29/19 at 2100, Administer every 5 minutes as needed, to a maximum cumulative dose of 250 mcg. For patients with a regional, spinal, or local anesth etic, may give for anticipated pain as the anesthetic wears off., PACU/Recovery HYDROmorphone (DILAUDID) injection 0.2-0 .3 mg 0.2-0.3 mg, Intravenous, Q10MIN PRN, Pain, 0.2 mg IV f or Mild to Moderate pain (pain score 1-5), 0.3 mg IV for Moderate to Severe pain (pain score 6 and above) in the immediate postop period when longer acting agent is desired., Starting on Tue10/29/19 at 1647, Until Tue10/29/19 at 2100, Maximum cu mulative dose is 2 mg in PACU, call Anesthesiologist if additional dosage neede d. For patients with a regional, spinal, or local anesthetic, may give for an ticipated pain as the anesthetic wears off., PACU/Recovery lactated ringers infusion Started 10/29/2019 5:08 PM CDT Starting on Tue10/29/19 at 1626, For 1 dose, Natty Simmons: cabinet override lidocaine PF (XYLOCAINE) 1 % injection - ADS Override Pull Starting on Tue10/29/19 at 1626, For 1 dose, Asia Simmons: cabinet override lidocaine PF (XYLOCAINE) 1 % Given 10/29/2019 4:45 PM CDT 0.1 mL Left Hand injection 0.1-0.3 mL 0.1-0.3 mL, Subcutaneous, ONCE, On Tue10/29/19 at 1700, For 1 dose, Lidocaine to be used for IV starts unless patient refuses., Pre-op lidocaine PF (XYLOCAINE) 1 % injection 0 .1-0.3 mL 0.1-0.3 mL, Subcutaneous, PRN, Other, for additional I V starts, Starting on Tue10/29/19 at 1632, Pre-op meperidine (DEMEROL) injection 12.5 mg 12.5 mg, Intravenous, [id number], Shiverin g, Starting on Tue10/29/19 at 1647, Until Tue10/29/19 at 210, For 2 doses, Maximu m cumulative dose is 25 mg. Do not give to patients receiving MAO inhibitors (e.g. phenelzine (NA RDIL), tranylcypromine (PARNATE), selegiline (ELDEPRYL))., PACU/Recovery midazolam (VERSED) injection 1-2 mg 1-2 mg, Intravenous, [id number], Sedation, Anxiety, Proc edure, Starting on Tue10/29/19 at 1647, Until Tue10/29/19 at 2101, As directe d by anesthesiologist MAX Dose 2mg, Pre-op naloxone (NARCAN) injection 0.08 mg 0.08 mg, Intravenous, PRN, Other, For respiratory rate less than 8/minute or patient difficult to arouse, Starting on Tue10/29/19 at 1647, Until Tue10/29/19 at 210, May repeat every 3 minutes or until patient is r esponsive to physical stimulation and is able to take deep nickolas aths. Maximum cumulative dose is 0.4 mg (1 mL). Continue to observe; if no response after administering total dose of 0.4 mg notify anesthesiologist STAT., PACU/Recovery naloxone (NARCAN) injection 0.4 mg 0.4 mg, Intravenous, ONCE PRN, Opioid Re versal, Starting on Tue10/29/19 at 1647, Until Tue10/29/19 at 2101, For 1 dose, F or imminent respiratory arrest. Notify MD if naloxone is given., PACU/Recovery ondansetron (ZOFRAN) injection 4 mg 4 mg, Intravenous, Q4H PRN, Nausea, Vomiting, Starting on Tue10/29/19 at 1647, Until Tue10/29/19 at 210, If multiple medications are ordered for nausea or vomiting - administer in the following priority based on medications ordered, effectiveness and availability: ondanset yolie (ZOFRAN) > prochlorPERAZINE (COMPAZINE) > diphenhydrAMINE (BENADRYL) > hydrOXYzi ne HCl (VISTARIL)> ePHEDrine > scopolamine (TRANSDERM-SCOP)., PACU/Recovery sodium chloride 0.9% injection Given 10/29/2019 5:38 PM CDT 10 mL Other (Comment) ONCE PRN, Starting on Tue10/29/19 at 1738, Until Tue10/29/19 at 210, Intra-op documented in this encounter Active and Recently Administered Medications Times are shown in CDT. Scheduled Medication Order 10/27/2019 10/28/2019 10/29/2019 botulinum toxin type A (BOTOX) injection 100 Units 1730 (Due) 100 Units, Intramuscular, ONCE, 10/28 at 1730, For 1 dose, Preparation: Single glove, gown; face mask optional Administration: Single glove ceFAZolin (ANCEF) 3 g in sodium chloride 0.9 % 100 mL IVPB (COMP LETED) 1727 (Started - Provider: Barbara Parker APRN, PLAN EXAMINER) 3 g, Intravenous, Administer over 30 Min utes, ONCE, Tue10/29/19 at 1630, For 1 dose, Infuse within 60 minutes prior to incision. Re-dose 2g IV every 4 hours after initial dose until incision closed. Re- dose if more than 1.5 L of blood loss. P harmacy may adjust for renal insufficiency., Pre-op lidocaine PF (XYLOCAINE) 1 % injection 0.1-0.3 mL (COMPLETED) 1645 (Given - Provider: Natty Simmons RN) 0.1-0.3 mL, Subcutaneous, ONCE, 10/28 at 1700, For 1 dose, Lidocaine to be used for IV starts unless patient refuses., Pre-op PRN Medication Order 10/27/2019 10/28/2019 10/29/2019 belladonna alkaloids-opium (B&O SUPPRETT ES) 16.2-60 MG rectal suppository 1 Suppository 1 Suppository, Rectal, Q6H PRN, Other, B ladder Spasms, Starting 10/29/19 at 1759, Post-op botulinum toxin type A (BOTOX) injection 1738 (Given - Provider: Stephanie Patel MD - Comment: Bladder) ONCE PRN, Starting Tue10/29/19 at 1740, Intra-op fentaNYL (SUBLIMAZE) injection 25-50 mcg 25-50 mcg, Intravenous, [id number], Pain, Procedure, Starting 10/29/19 at 1647, For 2 doses, As directed by anesthesiologist, Pre-op fentaNYL (SUBLIMAZE) injection 25-50 mcg 25-50 mcg, Intravenous, [id number], Other, Moderate to Severe Pain (pain score 5 and above) in the immediate postop period when faster on-set, short acting agent is desired., Starting 10/29/19 at 1647, Administer every 5 minutes as needed, t o a maximum cumulative dose of 250 mcg. For patients with a regional, spinal, or local anesthetic, may give for anticipated pain as the anesthetic wears off., PACU/Recovery HYDROmorphone (DILAUDID) injection 0.2-0.3 mg 0.2-0.3 mg, Intravenous, Q10MIN PRN, Lani n, 0.2 mg IV for Mild to Moderate pain (pain score 1-5), 0.3 mg IV for Moderate to Severe pain (pain score 6 and above) in the immediate postop period when longer acting agent is desired., Starting 10/29/19 at 1647, Maximum cumulative dose is 2 mg in PACU, call Anesthesiologist if additional dosage needed. For patients with a regional, spinal, or local anesth etic, may give for anticipated pain as the anesthetic wears off., PACU/Recovery lidocaine PF (XYLOCAINE) 1 % injection 0.1-0.3 mL 0.1-0.3 mL, Subcutaneous, PRN, Other, fo r additional IV starts, Starting 10/29/19 at 1632, Pre-op meperidine (DEMEROL) injection 12.5 mg 12.5 mg, Intravenous, [id number], Shiverin g, Starting Tue10/29/19 at 1647, For 2 doses, Maximum cumulative dose is 25 mg. Do not give to patients receiving MAO inhibitors (e.g. phenelzine (NARDIL), tranyl cypromine (PARNATE), selegiline (ELDEPRYL))., PACU/Recovery midazolam (VERSED) injection 1-2 mg 1-2 mg, Intravenous, [id number], Sedation, Anxiety, Procedure, Starting 10/29/19 at 1647, As directed by anesthesiologist MAX Dose 2mg, Pre-op naloxone (NARCAN) injection 0.08 mg 0.08 mg, Intravenous, PRN, Other, For re spiratory rate less than 8/minute or patient difficult to arouse, Starting 10/29/19 at 1647, May repeat every 3 minutes or until patient is responsive to physi delmer stimulation and is able to take deep breaths. Maximum cumulative dose is 0.4 mg (1 mL). Continue to observe; if no response after administering total dose of 0.4 mg notify anesthesiologist STAT., PACU/Recovery naloxone (NARCAN) injection 0.4 mg 0.4 mg, Intravenous, ONCE PRN, Opioid Re versal, Starting 10/29/19 at 1647, For 1 dose, For imminent respiratory arrest. Notify MD if naloxone is given., PACU/Recovery ondansetron (ZOFRAN) injection 4 mg 4 mg, Intravenous, Q4H PRN, Nausea, Vomi ting, Starting Tue10/29/19 at 1647, If multiple medications are ordered for nausea or vomiting - administer in the following priority based on medications ordered , effectiveness and availability: ondans etron (ZOFRAN) > prochlorPERAZINE (COMPAZINE) > diphenhydrAMINE (BENADRYL) > hydrOXYzine HCl (VISTARIL)> ePHEDrine > scopolamine (TRANSDERM-SCOP)., PACU/Recovery sodium chloride 0.9% injection 1 738 (Given - Provider: Stephanie Patel MD - Comment: Bladder.) ONCE PRN, Starting 10/29/19 at 1738, Intra-op No Frequency Medication Order 10/27/2019 10/28/2019 10/29/2019 lactated ringers infusion (COMPLETED) 1708 (Started - Provider: Natty Simmons RN) Starting 10/29/19 at 1626, For 1 dose, Natty Simmons: cabinet override documented in this encounter Care Teams Regulatory Compliance Engineer Relationship Specialty Start Date End Date Sandy Viera MD PCP - General Family Practice 07/20/19 10/29/20 [id number] [address] [place] [address] documented as of this encounter
--- OUTSIDE RECORDS SUMMARY | 2021-11-07 19:41 | XMS_ITS | Encounter Summary ---
:1980 Author Organization [facility] Address [address] [place] [address] Care Team Providers Name Role Phone Sandy Viera MD Primary Care Provider Reason for Visit Auth/Cert Specialty Diagnoses / Procedures Referred By Contact Refer red To Contact Diagnoses Urinary frequency Urinary urgency Mixed stress and urge urinary incontinence Procedures CYSTOSCOPY with bladder botox injections Referral ID Status Reason Start Date Expiration Date Visits Requ ested Visits Authorized [id number] 1 1 Encounter Details Date Type Department Care Team Description 10/29/2019 Anesthesia [place] [address] [place] [address] Room Barbara Parker APRN, GILL [address] [place] [address] [address] [place] [address] Anesthesia Record Procedure Summary Procedure Name Responsible Anesthesia Start Anesthesia Stop Anesthesiologist Time Time CYSTOSCOPY with Dante Allen MD 10/29/19 1715 1753 bladder botox injections (Bladder) Events Date Time Event Comment 10/29/2019 1707 1714 Quick Note Anesthesia start time denotes sedation started by BACKER UP currently o n case; patient continuously monitored to O.R . By BACKER UP 1715 An Start 1718 An Start Data 1718 Face Tent 1721 MD/DO Present 1743 MD/DO Present 1748 An Cannula 1748 an stop data 1753 An Stop Care transferred . 1753 Care Handoff Note I discussed wi th the receiving nurse and we: 1) Identified the p atient, elizondo family member(s) or patient surrogat e 2) Identified the responsible practitioner 3) Reviewed the pertinent medical history 4) Discu ssed the surgical/procedure course 5) Reviewed intr a-op anesthesia management and issues during an esthesia 6) Set expectations for the post-procedu re period 7) Allowed opportunity for questions an d acknowledgement of understanding of report Electr onically signed by Barbara Parker APRN, BACKER UP Name Total midazolam injection 2 mg/2 mL (VERSED) 2 mg fentaNYL injection (SUBLIMAZE) 50 mcg lidocaine 1% PF injection (XYLOCAINE) 50 mg propofol 10 mg/mL IV (DIPRIVAN) 351.67 mg ondansetron injection (ZOFRAN) 4 mg dexamethasone 4 mg/mL injection (DECADRON) 4 mg ceFAZolin (ANCEF) 3 g in sodium chloride 0.9 % 100 mL IVPB 2 g dexmedetomidine (PRECEDEX) 20 mcg in sodium chloride 5 mL (4 mcg/mL) 20 mcg injection SYRINGE lactated ringers infusion 200 mL Agents Name O2 Identified Agent Name Blood No blood administrations on file. Lines, Drains, and Airways Type Details Placement Removal Peripheral IV Placement Date: 10/29/19 1707 by 10/29/19 1800 b y 10/29/19; Placement Natty Simmons RN Taylor, Curtis J, Time: 1707; RN Pre-existing: No; Inserted by?: BACKER UP; Size (Gauge): 20 G; Orientation: Left; Site Prep: ChloraPrep, Alcohol; Local Anesthetic: Lidocaine 1%; Insertion attempts: 2; Patient Tolerance: Tolerated well; Met Standard Sterile Barrier Technique: Met Standard Sterile Barrier Technique; Removal Date: 10/29/19; Removal Time: 1800 Incision/Surgical Site 10/29/19; 1739; #1 10/29/19 173 by 10/28 1800 by (Urethra and bladder); Bekah Garrett, Nadir Staples, No; Pelvis; Anterior; RN 10/29/19; 1800 documented in this encounter Social History Tobacco Use Types Packs/Day Years [...] on file documented as of this encounter Miscellaneous Notes Anesthesia Postprocedure Evaluation - Dante Allen MD - 10/29/2019 6:58 PM CDT [facility] Anesthesia Post-op Note Patient: Narinder Lucas Post-Op Diagnosis: Urinary frequency, urinary urgency, mixed stress and urge urinary incontinence Procedure Performed: Procedure(s): CYSTOSCOPY with bladder botox injections - Wound Class: 2 CLEAN-CONTAMINATED Anesthesia Type: No value filed. Post-op vital signs: Vitals Value Taken Time BP 114/85 10/29/2019 6:01 PM Temp 36.5 ??C (97.7 ??F) 10/29/2019 5:51 PM Pulse 78 10/29/2019 6:13 PM Resp 20 10/29/2019 5:51 PM SpO2 100 % 10/29/2019 6:13 PM Vitals shown include unvalidated device data. Pain Score: Presence Of Pain: complains of pain/discomfort Preferred Pain Scale: number (Numeric Rating Pain Scale) Pain Rating (0-10): Rest: 4 Pain Rating (0- 10): Activity: 4 Post-op assessment: No anesthesia complication. Patient location: PACU Airway Status: Patent Cardiovascular function: Satisfactory Hydration status: Satisfactory PONV: None Level of Consciousness: Awake Fully Participates Postop Assessment: Patient tolerated procedure well. Electronically signed by: Dante Allen MD 10/29/2019 6:58 PM Anesthesia Preprocedure Evaluation - Dante Allen MD - 10/29/2019 5:06 PM CDT [facility] Anesthesia Pre-op Evaluation Procedure: Procedure(s): CYSTOSCOPY with bladder botox injections HPI: 38 y.o. old female with Urinary frequency, urinary urgency, mixed stress and urge urinary incontinence NPO Status: Last Fluid Intake Time: 1200 Last Fluid Intake Date: 10/29/19 Last Food Intake Date: 10/29/19 Last Food Intake Time: 0800 No Known Allergies Past Medical History: Diagnosis Date ??? Depression (emotion) ??? Overactive bladder ??? Sleep apnea ??? Vitamin D deficiency Patient Active Problem List Diagnosis ??? Vitamin D deficiency ??? Sleep apnea ??? Depression (emotion) ??? Overactive bladder ??? Morbid obesity with BMI of 50.0-59.9, adult ([facility]) ??? Urinary frequency ??? Urinary urgency ??? Mixed stress and urge urinary incontinence Past Surgical History: Procedure Laterality Date ??? APPENDECTOMY 2016 ??? SECTION 2013 Outpatient Medications Marked as Taking for the 10/29/19 encounter (Hospital Encounter) Medication Sig Dispense Refill ??? cholecalciferol (VITAMIN D3) 1.25 MG (72242 UT) capsule Take 1 Capsule by mouth once every week for 90 days. 12 Capsule 0 ??? mirabegron (MYRBETRIQ) 50 MG 24 hour release tablet Take 1 Tablet by mouth daily. 90 Tablet 3 ??? Multiple Vitamins-Iron (MULTIVITAMINS-IRON) tablet Take 1 Tablet by mouth. ??? traZODone (DESYREL) 50 MG tablet Take 50 mg by mouth daily at bedtime. ??? venlafaxine (EFFEXORXR) 150 MG 24 hour release capsule TK 1 C PO QD WITH NICKOLAS Current Facility-Administered Medications Medication Dose Route Frequency ??? botulinum toxin type A (BOTOX) injection 100 Units 100 Units Intramuscular Once ??? ceFAZolin (ANCEF) 3 g in sodium chloride 0.9 % 100 mL IVPB 3 g Intravenous Once ??? fentaNYL (SUBLIMAZE) injection 25-50 mcg 25-50 mcg Intravenous Q5MIN PRN ??? fentaNYL (SUBLIMAZE) injection 25-50 mcg 25-50 mcg Intravenous Q5MIN PRN ??? HYDROmorphone (DILAUDID) injection 0.2-0.3 mg 0.2-0.3 mg Intravenous Q10MIN PRN ??? lactated ringers infusion ??? lidocaine PF (XYLOCAINE) 1 % injection - ADS Override Pull ??? lidocaine PF (XYLOCAINE) 1 % injection 0.1-0.3 mL 0.1-0.3 mL Subcutaneous Once And ??? lidocaine PF (XYLOCAINE) 1 % injection 0.1-0.3 mL 0.1-0.3 mL Subcutaneous PRN ??? meperidine (DEMEROL) injection 12.5 mg 12.5 mg Intravenous Q5MIN PRN ??? midazolam (VERSED) injection 1-2 mg 1-2 mg Intravenous Q5MIN PRN ??? naloxone (NARCAN) injection 0.08 mg 0.08 mg Intravenous PRN ??? naloxone (NARCAN) injection 0.4 mg 0.4 mg Intravenous ONCE PRN ??? ondansetron (ZOFRAN) injection 4 mg 4 mg Intravenous Q4H PRN Labs: Lab Results Component Value Date/Time SODIUM 140 08/16/2019 11:26 AM K 4.4 08/16/2019 11:26 AM CHLORIDE 107 08/16/2019 11:26 AM BUN 10 08/16/2019 11:26 AM CREATININE 0.70 08/16/2019 11:26 AM GLUCOSE 112 (H) 08/16/2019 11:26 AM Lab Results Component Value Date/Time WBC 5.6 08/16/2019 11:26 AM HGB 12.9 08/16/2019 11:26 AM HCT 38.8 08/16/2019 11:26 AM PLTS 260 08/16/2019 11:26 AM No results found for: INR Urine test on 10/27/2019 was Negative. Blood Bank: No results found for: ABO, ABSCR EKG: No results found for this or any previous visit. Physical Exam: BP (!) 140/97 Pulse (!) 110 Temp 36.6 ??C (97.9 ??F) (Temporal Artery) Resp 20 Wt (!) 152.9 kg (337 lb) SpO2 96% BMI 54.39 kg/m?? Assessment/Plan: Review of Systems Patient does not have GERD. Patient is not a current smoker. The patient denies alcohol use. Patient denies any recent URI. History of PONV: No. History of motion sickness: No. Patient denies any personal or family history of anesthesia complications (PONV). Exam Mental Status: Alert and oriented. Mallampati score: II (Two). Mouth opening: Normal Thyromental Distance: > 3 finger breadths and Normal Neck Extension: Full Neck Circumference > 40 cm?: No Current airway assessment:Normal Dentition: Normal. Cardiac Exam: Regular rate and rhythm. Respiratory Exam: Breath sounds clear to auscultation Assessment ASA Status: 3 . Plan Anesthesia type: MAC Induction: Maintenance: Postoperative pain management (PONV): Plan for postoperative opioid use PONV Risk Score Peds:0 PONV Risk Score Adult: 3 Anesthetic plan, risks, benefits and alternatives discussed with: Patient. Bmi 54, depression, jeramy on cpap H&P Reviewed and Patient examined, no change observed IV access Antibiotics per surgery Electronically signed by: Dante Allen MD 10/29/2019 5:06 PM documented in this encounter Plan of Treatment Not on filedocumented as of this encounter Visit Diagnoses Not on filedocumented in this encounter Administered Medications Inactive Administered Medications - up to 3 most recent administrations Medication Order MAR Action Action Date Dose Rate Site ceFAZolin (ANCEF) 3 g in sodium Started 10/29/2019 5:27 PM CDT 2 g chloride 0.9 % 100 mL IVPB 3 g, Intravenous, Administer over 30 Minutes, ONCE, On Tue10/29/19 at 1630, For 1 dose, Infuse within 60 minutes prior to incision. Re-dose 2g IV every 4 hours after initial dose until incision closed. Re-dose if more than 1.5 L of blood loss. Pharmacy may adjust for renal insufficiency., Pre-op dexamethasone (DECADRON) injection Given 10/29/2019 5:30 PM CDT 4 mg Starting on Tue10/29/19 at 1730, Until Tue10/29/19 at 1753 dexmedetomidine injection syringe 20 mcg /5 mL Given 10/29/2019 5:30 PM CDT 20 mcg Starting on Tue10/29/19 at 1730, Until Tue10/29/19 at 1753 fentaNYL (SUBLIMAZE) injection Given 10/29/2019 5:34 PM CDT 50 mcg Intravenous, Starting on Tue10/29/19 at 1734, Until Tue10/29/19 at 1753 lactated ringers infusion Started 10/29/2019 5:15 PM CDT Intravenous, Starting on Tue10/29/19 at 1715 lidocaine PF (XYLOCAINE) 1 % injection Given 10/29/2019 5:27 PM CDT 50 mg Starting on Tue10/29/19 at 1727 midazolam (VERSED) injection Given 10/29/2019 5:15 PM CDT 2 mg Intravenous, Starting on Tue10/29/19 at 1715, Until Tue10/29/19 at 1753 ondansetron (ZOFRAN) injection Given 10/29/2019 5:34 PM CDT 4 mg Intravenous, Starting on Tue10/29/19 at 1734, Until Tue10/29/19 at 1753 propofol (DIPRIVAN) 10 mg/mL Started 10/29/2019 5:18 PM 100 mc g/kg/min 91.74 mL/hr injection CDT Starting on Tue10/29/19 at 1718, Until Tue10/29/19 at 1753 documented in this encounter Care Teams Web Analytics Specialist Relationship Specialty Start Date End Date Sandy Viera MD PCP - General Family Practice 07/20/19 10/29/20 [address] [place] [address] documented as of this encounter
--- OUTSIDE RECORDS SUMMARY | 2021-11-07 19:41 | XMS_ITS | Encounter Summary ---
:1980 Author Organization [employer] Address [address] [place] [address] Care Team Providers Name Role Phone Sandy Viera MD Primary Care Provider Reason for Visit Reason Comments Nutrition Counseling Encounter Details Date Type Department Care Team Description 07/24/2019 Telemedicine [place] Bariatric Ame Espinal, Morbid o besity with BMI of 50.0-59.9, adult ([facility]); Surgery & Weight RDN, LD Sleep apnea, unspecified type Center [address] [facility] [address] [facility] [place] [id number] [phone] Social History Tobacco Use Types Packs/Day Years [...] encounter Progress Notes Ame Espinal, RD - 07/24/2019 1:30 PM CDT [facility]: Bariatric MWM Follow-Up [...] calculated from the following: Height as of 06/19/19: 5' 7 (170.2 cm). Weight as of 06/19/19: 335 lb (557564 g).. Since last RD visit: Woke pt up from a nap, struggling w/ insomnia (trazodone not helping). Able to drink 48 fl oz water daily, didn't set alarms. Maintaining 3 meals/day, but inconsistent times d/t sleeping pattern. Patient is not an appropriate candidate for desired bariatric surgery based on current dietary habits. Patient would likely be a better candidate by maintaining regular 3 meals/day, fruits or vegetablesat meals, increasing water intake, physical activity Patient will continue medical weight management visits [...] AND EVALUATION: Patient identified goals: 1. Maintain 48 fl oz water minimum daily, 3 water bottles. 2. 3 meals per day. Follow up with dietitian in one month for medical weight management. Future areas of discussion: Holding fluids from meals, regular eating & sleep patterns. . Time: 15 minutes. Patient advised by dietitian prior the start of visit that their medical insurance may not provide coverage for MNT for their condition. Patient acknowledged they may be billed for up to $552. Patient accepts responsibility for payment when billed. documented in this encounter Plan of Treatment Not on filedocumented as of this encounter Visit Diagnoses Diagnosis Morbid obesity with BMI of 50.0-59.9, ad ult ([facility]) Sleep apnea, unspecified type documented in this encounter Care Teams Trap Operator Relationship Specialty Start Date End Date Sandy Viera MD PCP - General Family Practice 07/20/19 10/29/20 [address] [place] [address] documented as of this encounter
--- OUTSIDE RECORDS SUMMARY | 2021-11-07 19:41 | XMS_ITS | Encounter Summary ---
:1980 Author Organization [facility] Address [address] [address] Care Team Providers Name Role Phone Unavailable Primary Care Provider Unavailable Reason for Visit Reason Comments PHONE CALL TO PATIENT Encounter Details Date Type Department Care Team Description 06/20/2019 Notes/Orders [place] Bariatric Surgery & Oralia Knapp RN Weight Center [address] [facility], [address] [place] [address] Social History Tobacco Use Types [...] as of this encounter Progress Notes Castro Knapp, SHEYLA - 06/20/2019 11:46 AM CDT Bariatric Patient Tracking SmartForm updated to reflect current status with Bariatric Surgery and Weight Center. Spoke to patient. Has CPAP issued outside PN. Reports not using consistently. Advised to call CPAP company for adjustments to make more comfortable. Get a down load and last sleep study after 3-4 weeksof consistent use. Gave fax #. Reminded to get labs done. Gave P# to schedule PT and US RUQ. Next audit date 08/05 (after psych f/u) documented in this encounter Plan of Treatment Not on filedocumented as of this encounter Visit Diagnoses Not on filedocumented in this encounter
--- OUTSIDE RECORDS SUMMARY | 2021-11-07 19:41 | XMS_ITS | Encounter Summary ---
:1980 Author Organization [facility] Address [address] [facility] [place] [address] Care Team Providers Name Role Phone Sandy Viera MD Primary Care Provider Encounter Details Date Type Department Care Team Description 11/12/2019 Notes/Orders [place] Bariatric Surgery & Oralia Knapp RN Weight Center [address] [facility] [address] [place], [place] [address] Social History Tobacco Use Types Packs/Day Years [...] of this encounter Progress Notes Castro Knapp, RN - 11/12/2019 5:13 PM CDT Bariatric Patient Tracking SmartForm updated to reflect current status with Bariatric Surgery and Weight Center. Needs SS and DL, PT evaluation, RD f/u, psych f/u _los, est care therapist, demonstrate changes 3-6 mo. documented in this encounter Plan of Treatment Not on filedocumented as of this encounter Visit Diagnoses Not on filedocumented in this encounter Care Teams Folder Seamer Relationship Specialty Start Date End Date Sandy Viera MD PCP - General Family Practice 07/20/19 10/29/20 [address] [place] [address] documented as of this encounter
--- OUTSIDE RECORDS SUMMARY | 2021-11-07 19:41 | XMS_ITS | Encounter Summary ---
:1980 Author Organization [facility] Address [address] [place] [address] Care Team Providers Name Role Phone Sandy Viera MD Primary Care Provider Encounter Details Date Type Department Care Team Description 10/27/2019 Lab Visit [facility] t Laboratory Pre-op evaluation [address] [place] [address] Social History Tobacco Use [...] Name Priority Date/Time Associated Diagnosis Comme nts TEST Routine 10/27/2019 11:51 AM Pre-op evaluation R esults for this (URINE) CDT procedure are i n the results section. documented in this encounter Results Test Screen Urine (10/27/2019 11:51 AM CDT) P athologist Signature HCG, Urine Negative Negative 10/27/2019 [facility] 12:00 PM CDT LABORATORY Specimen Anatomical Collection Method Collection Time Receive d Time (Source) Location / / Volume Laterality Urine Non-blood 10/27/2019 11:51 10/27/2019 Collection / AM CDT 11:51 AM CDT Unknown Rodrick Mg MD LAB_1 Performing Organization Address City/State/ZIP Code Phon e Number [facility] [address] [place] [address] documented in this encounter Visit Diagnoses Diagnosis Pre-op evaluation Preoperative examination, unspecified documented in this encounter Care Teams Rn Liaison Relationship Specialty Start Date End Date Sandy Viera MD PCP - General Family Practice 07/20/19 10/29/20 [address] [facility] [place] [address] documented as of this encounter
--- OUTSIDE RECORDS SUMMARY | 2021-11-07 19:41 | XMS_ITS | Encounter Summary ---
:1980 Author Organization [employer] Address [address] [place] [address] Care Team Providers Name Role Phone Sandy Viera MD Primary Care Provider Reason for Visit Reason Comments Post-Op Follow Up Call Encounter Details Date Type Department Care Team Description 10/30/2019 Telephone [place] Stephanie Oleary, Post-Op Follow Up Call [place] [address] [address] [address] [address] [place] [address] [phone] (Wo rk) Social History Tobacco Use Types [...] encounter Nursing Notes Alize Rawls RN - 10/30/2019 2:45 PM CDT Post-Surgical Discharge follow-up call completed. Please refer to DOC Flowsheet: SURGDC for details. Pt states that she is doing well. She is already noticing that her incontinence is better. No questions or concerns at this time. documented in this encounter Plan of Treatment Not on filedocumented as of this encounter Visit Diagnoses Not on filedocumented in this encounter Care Teams Bell Cleaner Relationship Specialty Start Date End Date Sandy Viera MD PCP - General Family Practice 07/20/19 10/29/20 [address] [place] [address] documented as of this encounter
--- OUTSIDE RECORDS SUMMARY | 2021-11-07 19:41 | XMS_ITS | Encounter Summary ---
:1980 Author Organization [facility] Address [address] [address] Care Team Providers Name Role Phone Sandy Viera MD Primary Care Provider Reason for Referral (Routine) - Incomplete Specialty Diagnoses / Procedures Referred By Contact Refer red To Contact Diagnoses Urinary frequency Urinary urgency Mixed stress and urge urinary incontinence Mera Cotton, MACHINE TRACER, Procedures Case Request OR - Urology Surgery: CYSTOSCOPY with bladder botox injections GUEST ASSOCIATE [address] [place], [place] [address] Referral ID Status Reason Start Date Expiration Date Visits V isits Requested Authorized [id number] Incomplete 09/13/2019 12/12/2020 1 1 Reason for Visit Reason Comments Follow-up, NOS Encounter Details Date Type Department Care Team Description 09/11/2019 Office Visit Mera Perea, Urinary u rgency (Primary Dx); [facility] [place] Urinary frequency; Urology [address] Mixed stress and urge urinary incontinen ce; [address] [place], [place] Nocturnal enuresis; [place] [address] OAB (overactive bladder) [address] [phone] Social History Tobacco Use Types Packs/Day Years [...] documented as of this encounter Progress Notes Mera Cotton APRN, CNP - 09/11/2019 3:00 PM CDT Addended by: MERA COTTON on: 09/13/2019 07:41 AM Modules accepted: Orders, SmartSet Mera Cotton APRN, CNP - 09/11/2019 3:00 PM CDT Urology Progress Note SUBJECTIVE: Narinder Lucas is a very pleasant 38 y.o. female with a history of severe overactive bladder symptomsas well as significant not nocturnal enuresis. Please see my last note for full details. She saw last with virtually normal UDS. Decision was to try DDAVP. The patient did not want to do this after reviewing possible side effects. She also discussed bladder botox therapy. She is interested in this. She is interested in bariatric surgery, so Interstim would be best to wait until after this.She is miserable with incontinence, urinary frequency and urgency. This is significantly affecting her QOL and intimate relationship with . ?? ALLERGIES: Reviewed per EMR HOME MEDICATIONS: Reviewed per EMR SOCIAL HISTORY: Reviewed per EMR Review of systems: No chest pain, no shortness of breath. The rest of the complete review of systemsis negative other than what is stated in the HPI OBJECTIVE: Appearance: alert, well appearing, and in no distress. Psych: judgement and insight intact Skin: warm and dry Lungs: no respiratory distress IMPRESSION: 1. Mixed incontinence 2. Nocturnal enuresis 3. Urinary urgency 4. Urinary frequency PLAN: 1. She would like to try bladder Botox. She is miserable with symptoms and willing to try third linetherapies, understanding there is a chance it does not keep her completely dry. We spent the bulk ofthe visit discussing Botox, the risks and benefits of it, and the anticipated goal. I explained to them that there is a chance that she could develop urinary retention and need a catheter for up to 6 months, sometimes longer if the Botox works too well and she goes into urinary retention. Finally, we discussed risks of bleeding, infection, and pain. The patient understood these risks. Informed consent was obtained. Mera Cotton APRN, CNP Total face to face time 25 minutes, >50% of time spent coordinating care and counseling. Radha Robertson RN - 09/11/2019 3:00 PM CDT Pt is having procedure done in the OR and PA will be handled by that team. Stephanie Patel MD - 09/11/2019 3:00 PM CDT Sounds good! Stephanie Patel MD - 09/11/2019 3:00 PM CDT Did you set up in the OR? I don't think that she will fit in our stirrups. documented in this encounter Plan of Treatment Not on filedocumented as of this encounter Results 2019 Novel Coronavirus (COVID-19) (10/27/2019 11:12 AM CDT) [facility] Method Time Signature COVID-19 Not Not 10/28/2019 [facility] Interpretation Detected Detected 3:57 AM CENTRAL LAB CDT Specimen Anatomical Collection Method Collection Time Receive d Time (Source) Location / / Volume Laterality Swab (Source Non-blood 10/27/2019 11:12 10/27/2019 1:32 Required) Collection / AM CDT PM CDT Unknown Narrative [facility] CENTRAL LAB - 10/28/2019 3:57 AM CDT Test performed by Correspondence Analyst Mediated Amplification. TMA has been shown to be equivalent to commercial real-time PCR t ests. This test has been authorized by the FDA under an Emergency Use Authorization (EUA) for use by authorized laboratories. Mera Cotton APRN, CNP LAB_1 Performing Organization Address City/State/ZIP Code Phon e Number [facility] [address] [address] documented in this encounter Visit Diagnoses Diagnosis Urinary urgency - Primary Urgency of urination Urinary frequency Mixed stress and urge urinary incontinen ce Mixed incontinence urge and stress (male )(female) Nocturnal enuresis OAB (overactive bladder) Hypertonicity of bladder documented in this encounter Care Teams Rig Builder Relationship Specialty Start Date End Date Sandy Viera MD PCP - General Family Practice 07/20/19 10/29/[address] [place] [address] documented as of this encounter
--- OUTSIDE RECORDS SUMMARY | 2021-11-07 19:41 | XMS_ITS | Encounter Summary ---
:1980 Author Organization [employer] Address [address] [address] Care Team Providers Name Role Phone Sandy Viera MD Primary Care Provider Encounter Details Date Type Department Care Team Description 08/09/2019 Notes/Orders [facility] & Oralia Knapp RN [facility] [address] [place] [address], [address] [place] [address] Social History Tobacco Use Types [...] encounter Progress Notes Castro Knapp, RN - 08/09/2019 6:16 PM CDT Bariatric Patient Tracking SmartForm updated to reflect current status with Bariatric Surgery and Weight Center. Spoke to patient. Reminded to get labs done. Gave lab instructions. Fax Sleep study and CPAP down load. Schedule physical therapy and dietitian. Keep Dr Ascencio and psych appointment. Will audit in 1 month documented in this encounter Plan of Treatment Not on filedocumented as of this encounter Visit Diagnoses Not on filedocumented in this encounter Care Teams Cane Loader Relationship Specialty Start Date End Date Sandy Viera MD PCP - General Family Practice 07/20/19 10/29/20 [address] [address] [place] [address] documented as of this encounter
--- OUTSIDE RECORDS SUMMARY | 2021-11-07 19:41 | XMS_ITS | Encounter Summary ---
:1980 Author Organization [facility] Address [address] [place] [address] Care Team Providers Name Role Phone Sandy Viera MD Primary Care Provider Reason for Visit Reason Comments Preop Exam Orthodox DOS: 10/29/2019 for CYSTOSCOPY with bladder botox injections Encounter Details Date Type Department Care Team Description 10/27/2019 Pre-Op Visit [facility] Rodrick Mg MD Pre-op evaluation (Primary Dx); Medicine [address] [address] Overactive bladder; [address] [place], [place] Mixed stress and urge urinar y incontinence; [place] [address] Morbid obesity with BMI of 50.0-59.9, ad ult (HRC); [phone] (Wo rk) Sleep apnea, unspecified type; Need for influenza vaccination Social History Tobacco Use Types Packs/Day Years [...] Sign Reading Time Taken Comments Blood Pressure 111/89 10/27/2019 9:58 AM CDT Pulse 111 10/27/2019 9:58 AM CDT Temperature 36.8 ??C (98.3 ??F) 10/27/2019 9:58 AM CDT Respiratory Rate - - Oxygen Saturation - - Inhaled Oxygen Concentration - - Weight 154.4 kg (340 lb 4.8 oz) 10/27/2019 9:58 AM CDT Height 167.6 cm (5' 6) 10/27/2019 9:58 AM CDT Body Mass Index 54.93 10/27/2019 9:58 AM CDT documented in this encounter Patient Instructions Patient InstructionsRodrick Mg MD - 10/27/2019 9:30 AM CDT --DO NOT TAKE NAPROXEN BETWEEN NOW AND THE PROCEDURE. DO NOT TAKE ASPIRIN OR ANY ANTI-INFLAMMATORIES(IBUPROFEN, ADVIL, MOTRIN, ALEVE, NAPROSYN, NAPROXEN) BEFORE THE PROCEDURE ACETAMINOPHEN (TYLENOL) IS OKAY TO TAKE BEFORE THE PROCEDURE IF NEEDED. documented in this encounter OR Notes H&P - Rodrick Mg MD - 10/27/2019 9:30 AM CDT PREOPERATIVE ASSESSMENT Date of Service: 10/27/2019 Date of : 1980 Age: 38 y.o. Sex: female Preoperative Evaluation completed by: Rodrick Mg MD Primary care physician: Sanyd Viera MD [phone] CHIEF COMPLAINT Pre-Operative Evaluation ANTICIPATED PROCEDURE Chief Complaint Patient presents with ??? Preop Exam Orthodox DOS: 10/29/2019 for CYSTOSCOPY with bladder botox [...] Refill ??? cholecalciferol (VITAMIN D3) 1.25 MG (48907 UT) capsule Take 1 Capsule by mouth [...] TK 1 C PO QD WITH NICKOLAS ??? Vitamin D, Ergocalciferol, 1.25 MG (32346 UT) CAPS 4 No current facility-administered medications for this visit. No Known Allergies PHYSICAL EXAMINATION Temp: 98.3 ??F (36.8 ??C) (10/27/19957) Pulse: (!) 111 (10/27/19957) BP: 111/89 (10/27/19957) Height: 5' 6 (167.6 cm) (10/27/19957) Weight: (!) 340 lb 4.8 oz (154.4 kg) (10/27/19957) BMI: 54.93 (10/27/19 0958) General Appearance: Normal HEENT: Normal Neck: Normal [...] adult ([facility]) E66.01 Z68.43 5. Sleep apnea, unspecified type G47.30 6. Need for influenza vaccination Z23 Influenza IIV4 (Quadrivalent) 0.5 mL (60772) RECOMMENDATIONS AND PLAN Day of surgery testing: [...] Mg MD 10/27/2019 documented in this encounter Plan of Treatment Not on filedocumented as of this encounter Results Test Screen Urine (10/27/2019 11:51 AM CDT) P athologist Signature HCG, Urine Negative Negative 10/27/2019 [place] 12:00 PM CDT LABORATORY Specimen Anatomical Collection Method Collection Time Receive d Time (Source) Location / / Volume Laterality Urine Non-blood 10/27/2019 11:51 10/27/2019 Collection / AM CDT 11:51 AM CDT Unknown Rodrick Mg MD LAB_1 Performing Organization Address City/State/ZIP Code Phon e Number [facility] [address] [place] [address] documented in this encounter Visit Diagnoses Diagnosis Pre-op evaluation - Primary Preoperative examination, unspecified Overactive bladder Hypertonicity of bladder Mixed stress and urge urinary incontinen ce Mixed incontinence urge and stress (male )(female) Morbid obesity with BMI of 50.0-59.9, ad ult (HRC) Sleep apnea, unspecified type Need for influenza vaccination Need for prophylactic vaccination and in oculation against influenza documented in this encounter Care Teams Temperature Regulator Relationship Specialty Start Date End Date Sandy Viera MD PCP - General Family Practice 07/20/19 10/29/20 [address] [facility] [place] [id number] documented as of this encounter
--- OUTSIDE RECORDS SUMMARY | 2021-11-07 19:41 | XMS_ITS | Encounter Summary ---
:1980 Author Organization [email or web address] Address [address] [place] [address] Care Team Providers Name Role Phone Sandy Viera MD Primary Care Provider Reason for Referral Consult/Transfer Care (Routine) - Incomplete Specialty Diagnoses / Procedures Referred By Contact Refer red To Contact Diagnoses Depression, [place] [address] [place] [address] Referral ID Status Reason Start Date Expiration Date Visits V isits Requested Authorized [id number] Incomplete 07/21/2019 10/19/2020 1 1 Scheduling Instructions Your provider has recommended an appoint ment with Behavioral Health. You may call [phone] to schedule your appointmen t. This recommended service/s may not be covered by your health plan (health insu tamar). To find out your specific benefit coverage, please call the number on your insurance card.?? Please note that in order to maintain access for all patients, [facility] does have a late cancellation policy. In order to avoid being restrict ed from scheduling future appointments in Behavioral Health you will need to cance l at least 24 hours in advance. We request you that you arrive 30 minutes before yo ur first appointment to complete paperwork. Reason for Visit Reason Comments Phone Visit FATIGUE DEPRESSION Encounter Details Date Type Department Care Team Description 07/21/2019 Phone Visit [facility] Sandy Viera, Archie ession, unspecified depression type (Primary Dx); Medicine Fatigue, unspecified type; [address] [address] [address] [place] [address] [place], [place] [phone] (Wo rk) Social History Tobacco Use Types [...] encounter Progress Notes Sandy Viera MD - 07/21/2019 8:30 AM CDT Subjective: Phone visit done 07/21/19 with Narinder regarding the follow-up depression and fatigue. Patient???s Reported Mood since last encounter is: Depressed.Patient is adherent to medications? yes Side effects from current medication: none According to the patient she has been feeling fatigued all the time and also feeling depressed. Patient have history of depression for more than 7 years. According to the patient she has been taking Prozac 20 mg for the last 3 months but is not helping. Patient is seeing the psychiatrist but willing to have a 2nd opinion with the the psychiatrist. Patient also have tried other medication in the past but that has not helped and she does not recall the names of the medications. Patient is not seeing the therapist. According to the patient this lot of stress as she is a 5-year-old son who has autism and patient is also have morbid obesity. Patient do feel down depressed, low energy level, overeating, trouble concentration but no suicidal thoughts and plan. Patient does not have any symptoms for COVID-19. Additional concerns: None Patient's medications, allergies, past medical, surgical, social and family histories were reviewed and updated as appropriate. Note: patient is deemed appropriate and safe for a phone visit. Denies thoughts of suicide or threatto others. There is not a history of psychiatric hospitalizations or suicide attempts. Antidepressants have not caused agitation, suicidality or other severe reactions. There is not a history of bipolar disorder or borderline personality disorder. Patient is not abusing substance that will worsen depression. Objective: BP Readings from Last 1 Encounters: 03/21/19 113/82 PHQ-9 07/21/2019 03/14/2019 07/10/2018 PHQ-9 Score Total 21 21 14 Q1: Loss of Int/Pleas +++ +++ ++ Q2: Depressed mood + +++ + Q3: Sleep problems +++ +++ +++ Q4: Tired/Low Energy +++ +++ +++ Q5: Appetite change +++ +++ ++ Q6: Feelings of failure ++ +++ + Q7: Concentration Prob +++ +++ + Q8: Slow or Restless +++ - + Q9: Thought Self Harm - - - LAST GAD7 SCORE DATE 07/21/2019 MIKEY-7 TOTAL SCORE 1 Some recent data might be hidden Assessment/Plan: Narinder was seen today for phone visit. Diagnoses and all orders for this visit: Depression, unspecified depression type (HRC) - Behavioral Health Adult/Peds - FLUoxetine (PROZAC) 40 MG capsule; Take 1 Capsule by mouth daily. Fatigue, unspecified type - Alanine Aminotransferase - ALT (SGPT); Future - Aspartate Aminotransferase (AST); Future - TSH; Future - Complete Blood Count W/Diff; Future - Basic Metabolic Panel; Future Vitamin D deficiency (HRC) - Vitamin D 25-Hydroxy (In house); Future I recommend patient blood work for evaluation of the fatigue but discuss it could be secondary to the major depression that she is having. Recommend increase Prozac from 20 mg to 40 mg daily and side effects reviewed and discussed this medication is not safe in and recommend to avoid . If start noticing any suicidal thoughts and plan recommend to call 911 or go to ER. Referral entered to see the psychiatrist. Recommend well- balanced diet and regular exercises and if continues to have symptoms recommend to follow up. Follow up: If continues to have symptoms recommend to follow up. Routine Health Maintenance Due: Routine Health Maintenance was not reviewed today. This phone visit is a scheduled telephone visit. 25 total time spent on the phone with the patient, with the>50 % in counseling and coordination of care. documented in this encounter Plan of Treatment Scheduled Referrals Name Type Priority Associated Diagnoses Order [facility] Behavioral Health Referral Routine Depression, unspecified Ordered: 07/21/2019 Adult/Peds depression type documented as of this encounter Results (ABNORMAL) Basic Metabolic Panel (08/16/2019 11:26 AM CDT) Analysis Performed At Patho logist Time Signature Sodium 140 136 - 145 08/16/2019 [facility] mmol/L 11:59 AM CDT LABORATORY Potassium 4.4 3.5 - 5.1 08/16/2019 [facility] mmol/L 11:59 AM CDT LABORATORY Chloride 107 98 - 109 08/16/2019 [facility] mmol/L 11:59 AM CDT LABORATORY CO2 25 20 - 29 08/16/2019 [facility] mmol/L 11:59 AM CDT LABORATORY Anion Gap 8 7 - 16 08/16/2019 [facility] mmol/L 11:59 AM CDT LABORATORY Calcium 8.8 8.4 - 10.4 08/16/2019 [facility] mg/dL 11:59 AM CDT LABORATORY BUN 10 7 - 26 08/16/2019 [facility] mg/dL 11:59 AM CDT LABORATORY Creatinine 0.70 0.55 - 08/16/2019 [facility] 1.02 mg/dL 11:59 AM CDT LABORATORY GFR, Estimated >60 >60 08/16/2019 [facility] mL/min/1.7 11:59 AM CDT LABORATORY 3m2 Glucose 112 (H) 70 - 100 08/16/2019 [facility] mg/dL 11:59 AM CDT LABORATORY Comment: The given reference range is fo r the fasting state. Non-fasting reference range for glucose is 70 - 180 mg/dL. Hours Fasting 12 08/16/2019 11:59 AM CDT [facility] Specimen Anatomical Collection Method / Collection Time Recei adama Time (Source) Location / Volume Laterality Blood Venipuncture / 08/16/2019 11:26 0 Unknown AM CDT 11:29 AM CDT Sandy Viera MD LAB_1 Performing Organization Address City/State/ZIP Code Phon e Number [facility] [address] [place] [address] documented in this encounter Visit Diagnoses Diagnosis Depression, unspecified depression type - Primary Fatigue, unspecified type Vitamin D deficiency (HRC) Unspecified vitamin D deficiency documented in this encounter Care Teams Glass Carrier Relationship Specialty Start Date End Date Sandy Viera MD PCP - General Family Practice 07/20/19 10/29/[address] [place] [address] documented as of this encounter
--- OUTSIDE RECORDS SUMMARY | 2021-11-07 19:41 | XMS_ITS | Encounter Summary ---
:1980 Author Organization [email or web address] Address [address] [place] [address] Care Team Providers Name Role Phone Sandy Viera MD Primary Care Provider Reason for Visit Reason Comments ERRONEOUS ENTRY Encounter Details Date Type Department Care Team Description 08/06/2019 Phone Visit [facility] Sandy Viera, Warner id obesity with Medicine BMI of 50.0-59.9, [address] adult (C) ([place] [address] [place], [place] Dx) [phone] (Wo rk) Social History Tobacco Use Types [...] encounter Progress Notes Sandy Viera MD - 08/06/2019 9:00 AM CDT I called patient few times but no answer and mailbox was full. thanks documented in this encounter Plan of Treatment Not on filedocumented as of this encounter Visit Diagnoses Diagnosis Morbid obesity with BMI of 50.0-59.9, ad ult (HRC) - Primary documented in this encounter Care Teams Beauty Operator Apprentice Relationship Specialty Start Date End Date Sandy Viera MD PCP - General Family Practice 07/20/19 10/29/20 [address] [place] [address] documented as of this encounter
--- OUTSIDE RECORDS SUMMARY | 2021-11-07 19:41 | XMS_ITS | Encounter Summary ---
:1980 Author Organization [facility] Address [address] [address] Care Team Providers Name Role Phone Unavailable Primary Care Provider Unavailable Reason for Visit Reason Comments Pre-visit Planning Encounter Details Date Type Department Care Team Description 06/19/2019 Telephone [place] [facility] & Xin Ocampo RN Pre-visit Planning Weight Center [address] [facility] [address] [place], [place] [address] Social History Tobacco Use Types Packs/Day Years [...]
--- OUTSIDE RECORDS SUMMARY | 2021-11-07 19:41 | XMS_ITS | Encounter Summary ---
:1980 Author [email or web address] Address [address] [place] [address] Care Team Providers Name Role Phone Sandy Viera MD Primary Care Provider Reason for Referral Therapies (Routine) - Closed Specialty Diagnoses / Procedures Referred By Contact Refer red To Contact Diagnoses Morbid obesity with BMI of 50.0-59.9, adult (HRC) Carrie Ascencio [facility] [address] [address] Referral ID Status Reason Start Date Expiration Date Visits Requ ested Visits Authorized [id number] Closed 08/10/2019 10/09/2019 1 1 Scheduling Instructions Your provider has recommended an appoint ment with [facility]. You may call [phone] to schedule your a ppointment. We suggest you call your health insurance company about your coverage an d benefits for this appointment. Encounter Details Date Type Department Care Team Description 08/10/2019 Notes/Orders [facility] Carrie Ascencio, Morbid obesity with & Weight Center [facility] BMI of 50.0-59.9, [address] adult (HRC) (Primary [address] [place]) [place] [phone] Social History Tobacco Use Types Packs/Day Years [...] as of this encounter Plan of Treatment Scheduled Referrals Name Type Priority Associated Diagnoses Order S chedule Physical Therapy Referral Routine Morbid obesity with BMI of Ordered: 08/10/2019 50.0-59.9, adult (HRC) documented as of this encounter Visit Diagnoses Diagnosis Morbid obesity with BMI of 50.0-59.9, ad ult (HR) - Primary documented in this encounter Care Teams Training And Development Director Relationship Specialty Start Date End Date Sandy Viera MD PCP - General Family Practice 07/20/19 10/29/20 [address] [place] [address] documented as of this encounter
--- OUTSIDE RECORDS SUMMARY | 2021-11-07 19:41 | XMS_ITS | Encounter Summary ---
:1980 Author Organization [employer] Address [address] [place] [address] Care Team Providers Name Role Phone Sandy Viera MD Primary Care Provider Reason for Visit Reason Comments Follow-up Encounter Details Date Type Department Care Team Description 09/25/2019 Telemedicine [facility] Carrie Ascencio, Morbid obesity with BMI of 50.0-59.9, adult ([facility]) (Primary Dx); & Weight Center [facility] Vitamin D deficiency; [address] [place] M ixed stress and urge urinary incontinence; [address] Sleep apnea, unspecified type; [place], [place] Dep ression, unspecified depression type [id number] [phone] Social History Tobacco Use Types Packs/Day Years [...] - Inhaled Oxygen Concentration - - Weight 153.8 kg (339 lb) 09/25/2019 11:13 AM CDT Height 170.2 cm (5' 7) 09/25/2019 11:13 AM CDT Body Mass Index 53.09 09/25/2019 11:13 AM CDT documented in this encounter Patient Instructions Patient InstructionsCarrie Ascencio MBChB - 09/25/2019 11:30 AM CDT - I will have the manufacturing scheduler contact you to help set up follow up appointment with psychology (Madiha)and a follow-up appointment with storage garage manager plus follow up with me in 3 months. - When you feel ready, schedule with the physical therapist You may call [phone] to schedule your appointment. documented in this encounter Progress Notes Carrie Ascencio MBChB - 09/25/2019 11:30 AM CDT Metabolic Health and Weight Management Follow up CHIEF COMPLAINT Chief Complaint Patient presents with ??? Follow-up HPI Narinder Lucas is a 38 y.o. female with chronic medical problems including depression, OCD, overactive bladder, vitamin-D deficiency , who was referred/seeks to treat the following obesity-associated medical conditions by aggressive management of weight: Obstructive sleep apnea (not using CPAP consistently as unable to tolerate mask), weight-bearing joint pain, stress incontinence. She is currently pursuing a surgical intervention for weight loss. Last seen on 06/19/2019 by bariatrician. Patient's weight history is as follows: Bariatric Weight History and Calculations Weight History Age at Onset of Obesity: 28 Preferred Weight: 150 lb Starting Weight: 335 lb Current Weight: 339 lb Height (in): 67 Weight Calculations Excess Weight: 190 lb 8 oz Current Weight Loss: -4 lb Goal Weight: 144 lb 8 oz Starting BMI: 52.9884368846460 Percent Exess Weight Loss: -2.8102403286358 Current BMI: 53.6834186506565 Percent Totoal Body Weight Loss: -1.82140226549252 Previous medications for the intention of weight loss: naltrexone : side effects of nausea and diarrhea. Nutrition : seen 07/24/19 : working on maintaining regular 3 meals/day, fruits or vegetables at meals, increasing water intake, physical activity Psychology: seen 06/19/2019 : has yet to have second appointment for completion of assessment. CAMRYN: compliant with CPAP. (Endorses poor sleep quality (has been referred to sleep clinic) with day time somnolence which makes it difficult for her to adhere to nutritional changes and physical activity). Physical therapy : yet to have first appointment Contraception : none. She follows with psychiatry : Dr Renan Wilson, in [place] and a psychologist, Alfred, every , at [facility] in [place]. Endorses recent worsening of mood with associated lack of motivation to take care of self or home or adhere to lifestyle modification. PHQ-9 [address] Has appointment with Dr. Wilson tomorrow to discuss medication change. Denies any prior or current self harm or suicidal ideation. Has upcoming cystoscopy with bladder Botox injections for management of severe overactive bladder. Considering Interstim following bariatric surgery. Denies currently actively or PMHx of GERD symptoms. Patient has made previous weight loss attempts: Yes [facility] Assessment: Updating Your Care Team 1. Have you been working on any lifestyle goals since your last visit?: No What is getting in the way?: watching my diet- however antidepressant is making patient not eating, not getting out of home. patient feeling more depressed. Ware of motivation to take care of self or home. 3. Are you pleased with your weight loss at this point?: No 4. How many hours of sleep to you get per night?: 4-6 5. What physical activity are you doing?: nothing 7. Do you drink sugar-sweetened beverages (regular soda or sweetened coffee or tea)?: No 8. What would you like to discuss today?: difficulty sleeping, watching my diet- however antidepressant is making patient not eating, not getting out of home. patient feeling more depressed. Lack of motivation to take care of self or home. Post-surgical information: 5. Does the patient snack?: Neg REVIEW OF SYSTEMS: A complete 10-point ROS was negative with the exception of the following: Review of symptoms positive for the following: Fatigue Dental Problems Low Back Pain Pertinant negatives: Dizziness Headaches Excessive burping Palpations Chest Pain Nausea Shortness of Breath At Rest Shortness of Breath Walking Blurry Vision Objective: Vitals: 09/25/19 1113 Weight: (!) 339 lb (153.8 kg) General: Alert, oriented, NAD Respiratory: Talking in full sentences. Nonlabored breathing. Psych: Affect is normal, patient is appropriate, grooming is appropriate. PHQ9 Scores PHQ-9 09/25/2019 07/21/2019 03/14/2019 PHQ-9 Score Total 14 21 21 Q1: Loss of Int/Pleas +++ +++ +++ Q2: Depressed mood ++ + +++ Q3: Sleep problems +++ +++ +++ Q4: Tired/Low Energy +++ +++ +++ Q5: Appetite change +++ +++ +++ Q6: Feelings of failure - ++ +++ Q7: Concentration Prob - +++ +++ Q8: Slow or Restless - +++ - Q9: Thought Self Harm - - - Date PHQ9 was completed 09/25/2019 - - Index Date: 03/14/2019 ASSESSMENT/PLAN We will work together to treat the following obesity-associated medical conditions and conditions exacerbated by or contributing to weight gain by aggressive management of weight: ICD-10-CM 1. Morbid obesity with BMI of 50.0-59.9, adult ([facility]) E66.01 Z68.43 2. Vitamin D deficiency E55.9 cholecalciferol (VITAMIN D3) 1.25 MG (94733 UT) capsule 3. Mixed stress and urge urinary incontinence N39.46 4. Sleep apnea, unspecified type G47.30 5. Depression, unspecified depression type F32.9 The patient would like to pursue a surgical intervention for weight loss at this time. - vitamin-D deficiency: Taking 67346 IU of vitamin-D daily for 12 weeks with recheck lab following with. -current depression symptoms greatly affecting her ability to adhere to lifestyle modification. Discussed focusing on addressing mood with psychology and psychiatry as important next step. -The patient does have signs of emotionally dysregulated food intake and /or eating disorder is working with psychology for further evaluation of these symptoms. Needs to schedule second part of initial assessment. -Nutrition: working with soldering machine operator helper. Needs follow up appointment to be scheduled. -Exercise: Patient was referred to PT for additional assistance with developing a home exercise regimen. Has not yet made initial appointment. -RUQ ultrasound scan 06/27/2019 : Hepatic steatosis, otherwise unremarkable. -Medications: -Patient is currently taking the following [...] and may continue surgical evaluation with the soldering machine operator helper, psychologist, and physical therapist. However, the patient [...] encounter Nursing Notes Xin Ocampo RN - 09/25/2019 11:30 AM CDT Standard rooming via telephone with follow up SmartForm completed. Last seen on 06/19/2019. Weight History: Bariatric Weight History and Calculations Weight History Age at Onset of Obesity: 28 Preferred Weight: 150 lb Starting Weight: 335 lb Current Weight: 339 lb Height (in): 67 Weight Calculations Excess Weight: 190 lb 8 oz Current Weight Loss: -4 lb Goal Weight: 144 lb 8 oz Starting BMI: 52.5470438895983 Percent Exess Weight Loss: -2.2176432680926 Current BMI: 53.9581824659103 Percent Totoal Body Weight Loss: -1.34060491931726 Measurements Do you have a scale? YES - 339 lb Do you have a BP cuff? NO Eating patterns Patient is experiencing the following symptoms/problems: Back Pain Bloating Diarrhea Joint Pain Mood Changes Pertinant Negatives Include Binge Eating Constipation Emotional Eating Eating Until Feeling Overfull GERD/Heartburn Increased Food Cravings Increased Hunger Side Effects from Weight Loss Medications Medications: Compliance: YES Side effects: NO Would like to discuss: difficulty sleeping, watching my diet- however antidepressant is making patient not eating, not getting out of home. patient feeling more depressed. Lack of motivation to take care of self or home. PHQ-9 14. Provided her my direct contact number for questions. Xin Ocampo RN 11:21 AM 09/25/2019 documented in this encounter Plan of Treatment Not on filedocumented as of this encounter Visit Diagnoses Diagnosis Morbid obesity with BMI of 50.0-59.9, ad ult ([facility]) - Primary Vitamin D deficiency ([facility]) Unspecified vitamin D deficiency Mixed stress and urge urinary incontinen ce Mixed incontinence urge and stress (male )(female) Sleep apnea, unspecified type Depression, unspecified depression type documented in this encounter Care Teams Corporate Travel Expert Relationship Specialty Start Date End Date Sandy Viera MD PCP - General Family Practice 07/20/19 10/29/20 [address] [place] [address] documented as of this encounter
--- OUTSIDE RECORDS SUMMARY | 2021-11-07 19:41 | XMS_ITS | Encounter Summary ---
:1980 Author Organization [employer] Address [address] [place] [address] Care Team Providers Name Role Phone Unavailable Primary Care Provider Unavailable Reason for Visit Reason Comments RESULTS, TEST Encounter Details Date Type Department Care Team Description 06/27/2019 Telephone [facility] Carrie Ascencio, RESULTS, TEST [address] [place], [place] [address] [address] [place] [phone] [facility] [place], [place] [phone] (Wo rk) Social History Tobacco Use Types [...] documented as of this encounter Nursing Notes Carrie Ascencio MBChB - 06/27/2019 5:05 PM CDT Please call patient to inform her of the results of recent ultrasound scan right upper quadrant as part of workup towards bariatric surgery. Scan shows evidence of fatty change in the liver, but is otherwise unremarkable with no evidence of gallstones. Thank you. documented in this encounter Plan of Treatment Not on filedocumented as of this encounter Visit Diagnoses Not on filedocumented in this encounter
--- OUTSIDE RECORDS SUMMARY | 2021-11-07 19:41 | XMS_ITS | Encounter Summary ---
:1980 Author Organization [employer] Address [address] [place] [address] Care Team Providers Name Role Phone Sandy Viera MD Primary Care Provider Reason for Visit Reason Comments QUESTIONS, GENERAL Encounter Details Date Type Department Care Team Description 09/07/2019 Telephone [facility] Stephanie Patel MD QUESTIONS, GENERAL Center - Urology [address] [facility] [address] [place] [address] [phone] (Wo rk) Social History Tobacco Use Types [...] as of this encounter Patient Instructions Patient InstructionsAngelica Brice RN - 09/07/2019 1:28 PM CDT Narinder calls regarding fluid restrictions while using DDAVP. We discuss them and the importance alongside taking some salt with dinner to prevent hyponatremia . Narinder has significant insomnia and often does not fall asleep until 4AM. She does not feel a medication requiring fluid restrictions is a goodfit. She no longer wishes to try DDAVP. There is an apt next week with Mera Arias. Note to Dr. Patel and Mera for review and recommendations. documented in this encounter Nursing Notes Stephanie Patel MD - 09/07/2019 4:23 PM CDT Noted. Thank you for talking with her. Agree with not going ahead with the DDAVP. documented in this encounter Plan of Treatment Not on filedocumented as of this encounter Visit Diagnoses Not on filedocumented in this encounter Care Teams Coal Grader Relationship Specialty Start Date End Date Sandy Viera MD PCP - General Family Practice 07/20/19 10/29/20 [address] [place] [address] documented as of this encounter
--- OUTSIDE RECORDS SUMMARY | 2021-11-07 19:41 | XMS_ITS | Encounter Summary ---
:1980 Author Organization [email or web address] Address [address] [place] [address] Care Team Providers Name Role Phone Unavailable Primary Care Provider Unavailable Reason for Visit Procedure/Equipment (Routine) - Incomplete Specialty Diagnoses / Procedures Referred By Contact Refer red To Contact Diagnoses Morbid obesity with BMI of 50.0-59.9, adult ([facility]) Carrie Ascencio MBChB Procedures [facility] RUQ Organs [address] [facility] [place] [phone] Referral ID Status Reason Start Date Expiration Date Visits V isits Requested Authorized [id number] Incomplete 04/24/2019 07/23/2020 1 1 Encounter Details Date Type Department Care Team Description 06/27/2019 Ancillary Procedure [place] Ascencio Morbid o besity with Ultrasound Roxane Butler BMI of 50.0-59.9, [address] [facility] ([facility]) [place] [address] [address] [place] [phone] [place] NORMAN [id number] Social History Tobacco Use Types Packs/Day Years [...] Name Priority Date/Time Associated Diagnosis Comme nts US ABD RUQ ORGANS Routine 06/27/2019 11:17 AM Morbid obesity w ith Results for this CDT BMI of 50.0-59.9, procedure are in adult ([facility]) the results section. documented in this encounter Results US Abd RUQ Organs (06/27/2019 11:17 AM CDT) Anatomical Region Laterality Modality Abdomen Ultrasound Specimen (Source) Anatomical Collection Method Collection Time Re ceived Time Location / / Volume Laterality 06/27/2019 10:50 AM CDT Impressions 06/27/2019 11:28 AM CDT COMPARISON: ??None. FINDINGS: ?? Pancreas: Partially obscured but visuali zed portions are unremarkable. Liver: Contour appears unremarkable. Inc reased parenchymal echogenicity most consistent with steatosis. No focal lesions. Gallbladder: Appears unremarkable. No in trinsic abnormality and no wall thickening or pericholecystic fluid. Sonographic Jorge's Sign: No. CBD: 0.5 cm. Right Kidney: Measures 11.0 x 4.5 x 5.3 cm. Appears unremarkable. Ascites: None. IMPRESSION: Hepatic steatosis, otherwise unremarkable. Procedure Note Tommy Myers MD - 06/27/2019Format ting of this note might be different from the original. IMPRESSION COMPARISON: None. FINDINGS: Pancreas: Partially obscured but visuali zed portions are unremarkable. Liver: Contour appears unremarkable. Inc reased parenchymal echogenicity most consistent with steatosis. No focal lesions. Gallbladder: Appears unremarkable. No in trinsic abnormality and no wall thickening or pericholecystic fluid. Sonographic Jorge's Sign: No. CBD: 0.5 cm. Right Kidney: Measures 11.0 x 4.5 x 5.3 cm. Appears unremarkable. Ascites: None. IMPRESSION: Hepatic steatosis, otherwise unremarkable. Carrie Ascencio [facility] RAD US documented in this encounter Visit Diagnoses Diagnosis Morbid obesity with BMI of 50.0-59.9, ad ult ([facility]) documented in this encounter
--- OUTSIDE RECORDS SUMMARY | 2021-11-07 19:41 | XMS_ITS | Encounter Summary ---
:1980 Author Organization [employer] Address [address] [place] [address] Care Team Providers Name Role Phone Sandy Viera MD Primary Care Provider Reason for Visit Reason Comments Phone Visit Encounter Details Date Type Department Care Team Description 09/04/2019 Telemedicine [facility] Stephanie Oleary [place] [facility] - (Primary Dx) Urology [address] [place] [address] [phone] (Wo rk) Social History Tobacco Use Types [...] documented as of this encounter Progress Notes Angelica Brice RN - 09/04/2019 1:15 PM CDT Lm for patient providing lab apt number and nurses direct line for assistance arranging labs. Stephanie Patel MD - 09/04/2019 1:15 PM CDT Urology Progress Note Phone visit Narinder Lucas is a very pleasant 38 y.o. female with a history of severe overactive bladder symptomsas well as significant not internal enuresis. At the patient's last visit we are going to try DDAVP.We discussed the importance of labs to ensure that she does not developed hyponatremia. In the last month, the patient could not coordinate remembering to take the medication and getting an appointmentfor a lab. Unfortunately given the COVID outbreak, getting appointments at the lab is more challenging. We discussed trying the Botox instead of the DDAVP as that does not require labs. It is hard to knowhow much this would help with the nocturnal enuresis but is definitely something we could try. Patient would prefer to try the DDAVP 1st. ASSESSMENT: Nocturnal enuresis Overactive bladder failing medications BMI 52.47 PLAN: I will have my nurse help the patient get a lab appointment Reviewed with the patient not to drink 3 hours before bed and taking the DDAVP. Reviewed with the patient that she needs get labs the 1st day after taking DDAVP and 1 week later. Reviewed with the patient eating some salt with the dinner to avoid hyponatremia Total visit time was 15 minutes, greater than half of the time was spent counseling and coordinatingcare. documented in this encounter Plan of Treatment Not on filedocumented as of this encounter Visit Diagnoses Diagnosis Nocturnal enuresis - Primary documented in this encounter Care Teams Cutter Brake Lining Relationship Specialty Start Date End Date Sandy Viera MD PCP - General Family Practice 07/20/19 10/29/20 [address] [place] [address] documented as of this encounter
--- OUTSIDE RECORDS SUMMARY | 2021-11-07 19:41 | XMS_ITS | Encounter Summary ---
:1980 Author Organization [employer] Address [address] [place] [address] Care Team Providers Name Role Phone Sandy Viera MD Primary Care Provider Reason for Visit Reason Comments CONSULT Encounter Details Date Type Department Care Team Description 07/10/2019 Office Visit Stephanie Bedolla, Urinary urgency (Primary Dx); Specialty Center - Nocturnal enuresis Urology [address] Kim[address] [place] [address] [phone] (Wo rk) Social History Tobacco Use Types [...] as of this encounter Patient Instructions Patient InstructionsStephanie Patel MD - 07/10/2019 1:30 PM CDT 1. Limit fluids for 3 hours before bed 2. Take desmopressin 3. After the first day of taking the medication, go to the lab for a blood draw, we will call you. 4. Stop if you have any dizziness or confusion documented in this encounter Progress Notes Stephanie Patel MD - 07/10/2019 12:00 PM CDT NAME: NARINDER LUCAS MR#: [id number] CSN: [id number] AUTHENTICATING CLINICIAN: Stephanie Patel MD CONFIRM #: [id number] LOC: 417 CLINIC PROGRESS NOTE DATE OF VISIT: 07/10/2019 : 1980 The patient is a very pleasant 38-year-old woman with a history of mixed incontinence. The thing that bothers the patient the most is nocturnal enuresis. She states that she wakes up and she is wet. This has been a problem for her for many years. She also has urgency and urge incontinence. She notes that she will take a nap, sometimes she will accidentally urinate on the couch. This is a severe problem for her as her house smells, her bed smells. She feels like she cannot be intimate with her . She is changing her clothes 2 to 4 times a day. She wears Pull-Ups, but theleaking is so bad, it is not working. The patient also has other difficulties. She has a 5-year-old with special needs. She occasionally drinks some caffeinated sodas, but no coffee. The patient is obese, her BMI is 52.47. She underwent urodynamics. I reviewed the report. The patient does not have any clear evidence of detrusor instability and has good terminal detrusor function. She had been on Myrbetriq in the past and that was not helpful. She also has tried oxybutynin, but that was not tolerable as she developed severe dry mouth. PAST MEDICAL HISTORY/MEDICATIONS/ALLERGIES/SOCIAL HISTORY/FAMILY HISTORY: Reviewed and updated in [facility]. REVIEW OF SYSTEMS: No chest pain. No shortness of breath. PHYSICAL EXAM: GENERAL: The patient is comfortable, awake, alert, oriented. PSYCH: Judgment and insight are intact. The patient is very pleasant. RESPIRATORY: Normal respiratory effort. No wheezing. MUSCULOSKELETAL: Grossly intact NEUROLOGIC: Grossly intact. ASSESSMENT: 1. Mixed incontinence. 2. Nocturia. PLAN: Trial of DDAVP Discussion: I had a good discussion with Narinder about what we try to treat first. She could possibly be a candidate for Botox. We could try to treat her daytime urgency and frequency with Botox. She has essentiallyfailed medication. She would also be a candidate for InterStim, but given her weight and her plan for bariatric surgery, we might want to wait on that. Botox could be a stopgap. We then discussed the nocturia. I am not sure that Botox would help with the nocturia and that seemslike her primary problem right now. Therefore, we decided to try DDAVP. I looked through the patient's chart through [facility]. She has been prescribed this in the past, but she does not ever remember actually taking it. I think it would be a good place to start. We discussed theneed for labs after she start DDAVP and the risk of hyponatremia. She is instructed not to drink anything 3 hours before bed, before taking the medication, and then if she starts at night, she will get a lab tomorrow at [facility] just to make sure that she does not become hyponatremic on the medication. We can always increase this, as well. Total time spent with the patient was 25 minutes, greater than half of that was counseling and coordination of care. JMR:PHU C: CONFIRM #: [id number] documented in this encounter Plan of Treatment Not on filedocumented as of this encounter Visit Diagnoses Diagnosis Urinary urgency - Primary Urgency of urination Nocturnal enuresis documented in this encounter Care Teams Vaccine Specialist Relationship Specialty Start Date End Date Sandy Viera MD PCP - General Family Practice 07/20/19 10/29/[address] [place], [place] [address] documented as of this encounter
--- OUTSIDE RECORDS SUMMARY | 2021-11-07 19:41 | XMS_ITS | Encounter Summary ---
:1980 Author Organization [employer] Address [address] [place] [address] Care Team Providers Name Role Phone Sandy Viera MD Primary Care Provider Reason for Visit Reason Comments Future Appointments Encounter Details Date Type Department Care Team Description 10/12/2019 Telephone [facility] Cheyenne Viera MD Future Appointments [address] [address] [place], [place] [address] [place] [address] [phone] Social History Tobacco Use Types Packs/Day Years [...] as of this encounter Patient Instructions Patient InstructionsAllie Bland - 10/12/2019 8:43 AM CDT (Frontline/PSC: If caller has no additional questions after reading below message, update note and close encounter) Left message for patient to call back. Frontline/[facility] Service Center ([facility]), please inform patientof below message. Appt set for 10/21 needs to be rescheduled due to provider working remotely, please assist with rescheduling documented in this encounter Plan of Treatment Not on filedocumented as of this encounter Visit Diagnoses Not on filedocumented in this encounter Care Teams Roaster Operator Relationship Specialty Start Date End Date Sandy Viera MD PCP - General Family Practice 07/20/19 10/29/20 [address] [place] [address] documented as of this encounter
--- OUTSIDE RECORDS SUMMARY | 2021-11-07 19:41 | XMS_ITS | Encounter Summary ---
:1980 Author Organization [facility] Address [address] [place] [address] Care Team Providers Name Role Phone Sandy Viera MD Primary Care Provider Encounter Details Date Type Department Care Team Description 09/07/2019 Notes/Orders [facility] - (Primary Dx) Urology [address] [place] [address] [phone] (Wo rk) Social History Tobacco Use Types [...] Primary documented in this encounter Care Teams Candy Attendant Relationship Specialty Start Date End Date Sandy Viera MD PCP - General Family Practice 07/20/19 10/29/20 [address] [address] [place] [address] documented as of this encounter
--- OUTSIDE RECORDS SUMMARY | 2021-11-07 19:41 | XMS_ITS | Encounter Summary ---
:1980 Author Organization [facility] Address [address] [place] [address] Care Team Providers Name Role Phone Sandy Viera MD Primary Care Provider Reason for Referral Consult/Transfer Care (Routine) - Closed Specialty Diagnoses / Procedures Referred By Contact Refer red To Contact Diagnoses Chronic low back pain, unspecified back pain laterality, unspecified [place] [address] [place] [address] Referral ID Status Reason Start Date Expiration Date Visits Requ ested Visits Authorized Closed 11/06/2019 02/04/2021 1 1 Scheduling Instructions Your provider has recommended an appoint ment with [facility]. You may call [phone] to sche dule your appointment. We suggest you call your health insurance company about your coverage and benefits for this appointment. herapies (Routine) - Closed Specialty Diagnoses / Procedures Referred By Contact Refer red To Contact Diagnoses Chronic low back pain, unspecified back pain laterality, unspecified [place] [address] [place] [address] Referral ID Status Reason Start Date Expiration Date Visits Requ ested Visits Authorized Closed 11/06/2019 01/05/2020 1 1 Scheduling Instructions Your provider has recommended an appoint ment with [facility]. You may call [phone] to schedule your a ppointment. We suggest you call your health insurance company about your coverage an d benefits for this appointment. Consult/Transfer Care (Routine) - Closed Specialty Diagnoses / Procedures Referred By Contact Refer red To Contact Diagnoses Knee pain, unspecified chronicity, [place] [address] [place] [address] Referral ID Status Reason Start Date Expiration Date Visits Requ ested Visits Authorized Closed 11/06/2019 02/04/2021 1 1 Scheduling Instructions Your provider has recommended an appoint ment with [facility]. You may call [phone] to schedule your appoi ntment. We suggest you call your health insurance company about your coverage an d benefits for this appointment. Reason for Visit Reason Comments Back Pain Encounter Details Date Type Department Care Team Description 11/06/2019 Office Visit Sandy Monzon Chro nic low back pain, unspecified back pain laterality, unspecified whether sciatica present (Primary Dx); Medicine Knee pain, unspecified chronicity, unspe cified laterality [id number] [facility] [address] [place] [address] [place] [place] [phone] (Wo rk) Social History Tobacco Use Types [...] Sign Reading Time Taken Comments Blood Pressure 114/68 11/06/2019 1:29 PM CDT Pulse 109 11/06/2019 1:29 PM CDT Temperature - - Respiratory Rate - - Oxygen Saturation - - Inhaled Oxygen Concentration - - Weight 141.1 kg (311 lb) 11/06/2019 1:29 PM CDT Height - - Body Mass Index 50.2 10/27/2019 9:58 AM CDT documented in this encounter Progress Notes Sandy Viera MD - 11/06/2019 1:00 PM CDT Patient: Narinder Lucas Provider: Sandy Viera MD SUBJECTIVE: Patient is a 38-year-old female who today came in with concern of chronic low back pain that she is having for years and she feels been getting worse. According to the patient if she stand or walk she gets the pain she is okay with sitting. She can stand for a while just standing for 2 minutes she start getting low back pain and she is not able to do her household activities like walking, cleaning. She takes ibuprofen or Naprosyn as needed. The pain can be 10/10 in severity and sharp in nature and patient denies any radiation and there is no associated numbness, tingling and weakness of the lower extremity and no trauma. Also according to the patient she fell 3 weeks ago and hit the left knee and she went to the ER and have the x-ray of the left knee done that was negative but she was tender on the MCL so was concern of clear according to the patient she is better she does not have any knee painbut she since the trauma she feels sometimes the knee gives out although there is no redness and swelling is present and she was recommended to see the orthopedic and she would like to have the referral to see the orthopedic. LMP August 2019 and patient is not using any contraception. Patient history ofdepression and is followed by the psychiatrist outside the [facility] and will be seeing the psychologist on November 12 and no suicidal thoughts and plan. PAST MEDICAL HISTORY: Past Medical History: Diagnosis Date ??? Depression (emotion) ??? Overactive bladder ??? Sleep apnea ??? Vitamin D deficiency ALLERGIES: No Known Allergies MEDICATIONS: Outpatient Medications Prior to Visit Medication Sig ??? cholecalciferol (VITAMIN D3) 1.25 MG (07195 UT) capsule Take 1 Capsule by mouth once every week for 90 days. ??? diapers Please dispense adult nighttime diapers ??? mirabegron (MYRBETRIQ) 50 MG 24 hour release tablet Take 1 Tablet by mouth daily. (Patient not taking: Reported on 11/06/2019) ??? Multiple Vitamins-Iron (MULTIVITAMINS-IRON) tablet Take 1 Tablet by mouth. ??? naproxen (NAPROSYN) 500 MG tablet ??? traZODone (DESYREL) 50 MG tablet Take 50 mg by mouth daily at bedtime. ??? venlafaxine (EFFEXORXR) 150 MG 24 hour release capsule TK 1 C PO QD WITH NICKOLAS ??? Vitamin D, Ergocalciferol, 1.25 MG (88309 UT) CAPS No facility-administered medications prior to visit. Social history: No smoking. EXAM VS: BP 114/68 (BP Location: Left Forearm, BP Cuff Size: Regular) Pulse (!) 109 Wt (!) 311 lb (141.1 kg) BMI 50.20 kg/m?? CONSTITUTIONAL: No obvious distress, appears healthy. LUNGS: Clear to auscultation and percussion. CARDIAC: Normal heart sounds, no edema. ABDOMEN: Nontender, no hepatomegaly, positive bowel sounds. Musculoskeletal examination: Patient is tender on the lumbar spine on the paraspinal area of the lumbar region otherwise lower extremity strength is normal and sensations intact. Examination of the left knee patient is tender on the knee there is no redness and swelling is present. ASSESSMENT AND PLAN: 1.: Chronic low back pain: Recommend patient physical therapy and recommend to see the physical medicine and rehab doctor for further evaluation and management. 2.: Left knee pain: Referral given to see the orthopedic. 3.: History of depression: Patient is followed by the psychiatrist. The note is completed by voice recognition dictation software and typographical error may result. The note is completed by voice recognition dictation software and typographical error may result. documented in this encounter Plan of Treatment Scheduled Referrals Name Type Priority Associated Diagnoses Order S chedule Orthopaedic Consult Referral Routine Knee pain, unspecifie d Ordered: 11/06/2019 Adult/Peds chronicity, unspecified laterality Physical Therapy Referral Routine Chronic low back pain, O rdered: 11/06/2019 unspecified back pain laterality, unspecified whether sciatica present Physical Medicine & Referral Routine Chronic low back pain , Ordered: 11/06/2019 Rehab Consult-Adult unspecified back pain laterality, unspecified whether sciatica present documented as of this encounter Visit Diagnoses Diagnosis Chronic low back pain, unspecified back pain laterality, unspecified whether sciatica present - Primary Knee pain, unspecified chronicity, unspe cified laterality documented in this encounter Care Teams [place] Relationship Specialty Start Date End Date Sandy Viera MD PCP - General Family Practice 07/20/19 10/29/[address] [place] [address] documented as of this encounter
--- OUTSIDE RECORDS SUMMARY | 2021-11-07 19:41 | XMS_ITS | Encounter Summary ---
:1980 Author [facility] Address [address] [place] [address] Care Team Providers Name Role Phone Sandy Viera MD Primary Care Provider Reason for Visit Auth/Cert Specialty Diagnoses / Procedures Referred By Contact Refer red To Contact Diagnoses Urinary frequency Urinary urgency Mixed stress and urge urinary incontinence Procedures CYSTOSCOPY with bladder botox injections Referral ID Status Reason Start Date Expiration Date Visits Requ ested Visits Authorized [id number] 1 1 Encounter Details Date Type Department Care Team Description 10/29/2019 Surgery [facility] Stephanie Patel CY STOSCOPY with bladder Room botox injections [address] [place] [place] [address] [address] [place], [place] [phone] (Wo rk) Social History Tobacco Use [...] Sign Reading Time Taken Comments Blood Pressure 140/97 10/29/2019 4:23 PM CDT Pulse 110 10/29/2019 4:23 PM CDT Temperature 36.6 ??C (97.9 ??F) 10/29/2019 4:23 PM CDT Respiratory Rate 20 10/29/2019 4:23 PM CDT Oxygen Saturation 96% 10/29/2019 4:23 PM CDT Inhaled Oxygen Concentration - - Weight 152.9 kg (337 lb) 10/29/2019 4:23 PM CDT Height - - Body Mass Index 54.39 10/27/2019 9:58 AM CDT documented in this encounter Discharge Instructions Discharge Instr - Other Stephanie Lozoya MD - 10/29/2019 5:53 PM CDT Discharge instructions: PATIENT SPECIFIC INSTRUCTIONS: For any issues after discharge, please contact me or my nurse at [phone] or leave a message at [phone]. THINGS TO BE WORRIED ABOUT: Go to [...] 12 Capsule 0 09/0712/24/2019 D3) 1.25 MG (36124 UT) mouth once every capsuleIndications: week for [...] D, 4 01/09/2019 02/07/2020 Ergocalciferol, 1.25 MG (15547 UT) CAPS documented as of this encounter [...] MD Primary care physician: Sandy Viera MD [phone] CHIEF COMPLAINT Pre-Operative Evaluation ANTICIPATED PROCEDURE Chief Complaint Patient presents with ??? Preop Exam [facility] DOS: 10/29/2019 for CYSTOSCOPY with bladder botox [...] Date ??? APPENDECTOMY 2016 ??? SECTION 2013 Family History Problem Relation Age of Onset ??? Hypertension Father Social History Tobacco Use ??? Smoking status: Never Smoker ??? Smokeless tobacco: Never Used Substance Use Topics ??? Alcohol use: Never Frequency: Never Current Outpatient Medications Medication Sig Dispense Refill ??? cholecalciferol (VITAMIN D3) 1.25 MG (36545 UT) capsule Take 1 Capsule by mouth [...] NICKOLAS ??? Vitamin D, Ergocalciferol, 1.25 MG (64968 UT) CAPS 4 No current facility-administered medications [...] Morbid obesity with BMI of 50.0-59.9, adult ([facility]) E66.01 Z68.43 5. Sleep apnea, unspecified type G47.30 6. Need for influenza vaccination Z23 Influenza IIV4 (Quadrivalent) 0.5 mL (04164) RECOMMENDATIONS AND PLAN Day of surgery testing: [...] and draped in the usual fashion. A 22-Armenian injection scope was used. 100 units of [...] Time Signature HCG, Serum Negative Negative 10/29/2019 [facility] 5:03 PM CDT LABORATORY Specimen Anatomical Collection Method / Collection Time Recei adama Time (Source) Location / Volume Laterality Blood Venipuncture / 10/29/2019 4:42 10/29/2019 4:46 Unknown PM CDT PM CDT Stephanie Patel MD LAB_1 Performing Organization Address City/State/ZIP Code Phon e Number [facility] [address] [place] [address] documented in this encounter Visit Diagnoses Diagnosis Urinary frequency Urinary urgency Urgency of urination Mixed stress and urge urinary incontinen ce Mixed incontinence urge and stress (male )(female) Urinary frequency Urinary urgency Urgency of urination [...] (SUBLIMAZE) injection 25-50 mcg 25-50 mcg, Intravenous, [id number], Pain, Procedure, Starting on Tue10/29/19 at 1647, Until Tue10/29/19 at 2100, For 2 doses, As directed by anesthesiologist, Pre-op fentaNYL (SUBLIMAZE) injection 25-50 mcg 25-50 mcg, Intravenous, [id number], Other, Moderate to Severe Pain (pain score [...] (DEMEROL) injection 12.5 mg 12.5 mg, Intravenous, [id number], Shiverin g, Starting on Tue10/29/19 at 1647, Until Tue10/29/19 at 210, For 2 doses, Maximu m cumulative dose is 25 mg. Do not give to patients receiving MAO inhibitors (e.g. phenelzine (NA RDIL), tranylcypromine (PARNATE), selegiline (ELDEPRYL))., PACU/Recovery midazolam (VERSED) injection 1-2 mg 1-2 mg, Intravenous, [id number], Sedation, Anxiety, Proc edure, Starting on Tue10/29/19 at 1647, Until Tue10/29/19 at 2101, As directe d by anesthesiologist MAX Dose 2mg, Pre-op naloxone (NARCAN) injection 0.08 mg 0.08 mg, Intravenous, PRN, Other, For respiratory rate less than 8/minute or patient difficult to arouse, Starting on Tue10/29/19 at 1647, Until Tue10/29/19 at 2101, May repeat every 3 minutes or until [...] (COMP LETED) 1727 (Started - Provider: Barbara Parker, MONORAIL CHARGER OPERATOR, FORK REPAIRER) 3 g, Intravenous, Administer over 30 Min [...] Natty Simmons RN) 0.1-0.3 mL, Subcutaneous, ONCE, Mon 10/28 at 1700, For 1 dose, Lidocaine [...] (SUBLIMAZE) injection 25-50 mcg 25-50 mcg, Intravenous, [id number], Pain, Procedure, Starting 10/29/19 at 1647, For 2 doses, As directed by anesthesiologist, Pre-op fentaNYL (SUBLIMAZE) injection 25-50 mcg 25-50 mcg, Intravenous, [id number], Other, Moderate to Severe Pain (pain score [...] when longer acting agent is desired., Starting Tue10/29/19 at 1647, Maximum cumulative dose is 2 [...] (DEMEROL) injection 12.5 mg 12.5 mg, Intravenous, [id number], Shiverin g, Starting 10/29/19 at 1647, For 2 doses, Maximum cumulative dose is 25 mg. Do not give to patients receiving MAO inhibitors (e.g. phenelzine (NARDIL), tranyl cypromine (PARNATE), selegiline (ELDEPRYL))., PACU/Recovery midazolam (VERSED) injection 1-2 mg 1-2 mg, Intravenous, [id number], Sedation, Anxiety, Procedure, Starting 10/29/19 at 1647, [...] Intravenous, ONCE PRN, Opioid Re versal, Starting Tue10/29/19 at 1647, For 1 dose, For imminent respiratory arrest. Notify MD if naloxone is given., PACU/Recovery ondansetron (ZOFRAN) injection 4 mg 4 mg, Intravenous, Q4H PRN, Nausea, Vomi ting, Starting 10/29/19 at 1647, If multiple medications are ordered [...] infusion (COMPLETED) 1708 (Started - Provider: Natty Simmons, SHEYLA) Starting Tue10/29/19 at 1626, For 1 dose, Natty Simmons: cabinet override documented in this encounter Care Teams Press Department Manager Relationship Specialty Start Date End Date Sandy Viera MD PCP - General Family Practice 07/20/19 10/29/20 [address] [place] [address] documented as of this encounter
--- OUTSIDE RECORDS SUMMARY | 2021-11-07 19:41 | XMS_ITS | Encounter Summary ---
:1980 Author Organization [facility] Address [address] [facility] [place] [address] Care Team Providers Name Role Phone Sandy Viera MD Primary Care Provider Encounter Details Date Type Department Care Team Description 09/14/2019 Notes/Orders [facility] Oralia Knapp RN [facility] [address] [place], [place] [id number] Social History Tobacco Use Types Packs/Day Years [...] encounter Progress Notes Castro Knapp RN - 09/14/2019 2:54 PM CDT Bariatric Patient Tracking SmartForm updated to reflect current status with Bariatric Surgery and [facility]. Left a voicemail. Reminded to fax sleep study and download, schedule physical therapy evaluation, dietitian and psych. documented in this encounter Plan of Treatment Not on filedocumented as of this encounter Visit Diagnoses Not on filedocumented in this encounter Care Teams Automation Tech Relationship Specialty Start Date End Date Sandy Viera MD PCP - General Family Practice 07/20/19 10/29/20 [address] [address] [place] [address] documented as of this encounter
--- OUTSIDE RECORDS SUMMARY | 2021-11-07 19:41 | XMS_ITS | Encounter Summary ---
:1980 Author Organization [facility] Address [address] [place] [address] Care Team Providers Name Role Phone Sandy Viera MD Primary Care Provider Encounter Details Date Type Department Care Team Description 08/17/2019 Notes/Orders [facility] Sandy Viera Vita min D deficiency Medicine (Primary Dx) [address] [facility] [address] [address] [place] [address] [place] [phone] (Wo rk) Social History Tobacco Use Types [...] as of this encounter Visit Diagnoses Diagnosis Vitamin D deficiency ([facility]) - Primary Unspecified vitamin D deficiency documented in this encounter Care Teams Public Health Worker Relationship Specialty Start Date End Date Sandy Viera MD PCP - General Family Practice 07/20/19 10/29/20 [address] [address] [place] [address] documented as of this encounter
--- OUTSIDE RECORDS SUMMARY | 2021-11-07 19:42 | XMS_ITS | Encounter Summary ---
:1980 Author Organization [employer] Address [address] [place] [address] Care Team Providers Name Role Phone Unavailable Primary Care Provider Unavailable Reason for Visit Reason Comments CONSULT weight management Encounter Details Date Type Department Care Team Description 03/21/2019 Office Visit Charley Byrne Morb id obesity with BMI of 50.0-59.9, adult (HRC) (Primary Dx); Jessica Mcelroy MD Depression, unspecified depression type; [id number] [place] [address] Sleep apnea, unspecified typ e; [place] [address] Prediabetes; [phone] [place], [place] Secondary fe male infertility; [address] Vitamin D deficiency; [phone] (Wo rk) Routine health maintenance Social History Tobacco Use Types Packs/Day Years [...] Sign Reading Time Taken Comments Blood Pressure 113/82 03/21/2019 3:13 PM COMBAT CONTROL Pulse 103 03/21/2019 3:13 PM COMBAT CONTROL Temperature - - Respiratory Rate - - Oxygen Saturation - - Inhaled Oxygen Concentration - - Weight 147.4 kg (325 lb) 03/21/2019 3:13 PM COMBAT CONTROL Height - - Body Mass Index 51.28 03/14/2019 2:18 PM COMBAT CONTROL documented in this encounter Progress Notes Charley Garcia MD - 03/21/2019 3:00 PM CST Primary Care Weight Management: INITIAL ASSESSMENT CHIEF COMPLAINT Chief Complaint Patient presents with ??? CONSULT weight management HPI Narinder Lucas is a 38 y.o. female who seeks to treat the following obesity- associated medical conditions by medical management of weight: ?? Infertility ?? Depression ?? Sleep apnea ?? He has Patient's weight history is as follows: Patient has considered themselves significantly overweight since her 20s. Attributes struggles to isolation and depression, not taking care of herself. 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 Went to [facility] for 2 months to see her ; came back . Did not have housing when she got back, and hard to find a job when - depression got worse. Had a C section. Had no help, on government assistance. not enough money. joint her here in 2014 -however, he provides no social support, just financial assistance. Sonasias autism. - Weighed 248lb when she got , didn't lose weight after giving . Has many other medical difficulties. - sleep apnea, not using CPAP consistently. Chronic fatigue , which she acknowledges is also due to her depression - depression, OCD. Taking Prozac 20mg QD (with plan to increase). Can spend 2 hours washing dishes. - nocturia, ever since she was 16, every night. Takes tolterodine for this, sometime helpful Highest adult weight: 325 lbs. Lowset adult weight: 140 lbs. Motivation to lose weight: - improve depression - be able to exercise Exercise Days per week:0 Potentially problematic eating behaviors/patterns: Binge eating: No Grazing: Yes - 4-5 large meals per day Eating after dinner: Yes Waking up at night to eat: No Emotional eating: Yes Carbohydrate craving:Yes Experiencing constant hunger: Yes. Eats out frequently and eats food while doing other activities (phone, TV) Current Binge Eating symptoms include: Objective binges at least 1x per week for the past 3 months. No Marked distress due to the binges. n/a Eating until uncomfortably full. No Eating large amounts when not physically hungry. No Eating much more rapidly than usual. Yes Eating alone due to being embarassed by the amount eaten. Yes Feeling disgusted, depressed, or guilty after overeating. No Diet/Weight loss programs: (tried/effective) [employer]. [employer]. Gel/Pills that try to make her not feel hungry. Lost some weight but it came back right away. REVIEW OF SYSTEMS: A complete 10-point ROS was negative PAST PSYCHOLOGICAL HISTORY Depression, OCD, currently seeing psychiatrist. Sees Dr Renan Wilson, located in [place], does video visit. Also a psychologist, Alfred, every , at [facility] in [place]. Inpatient treatment: No Outpatient treatment: No History of physical, emotional or sexual abuse? no Grew up in [place], left at age 16, [place] for 5 years, moved to [place] age 21. PHYSICAL EXAMINATION: Vitals: BP 113/82 (BP Location: Right Forearm, BP Cuff Size: Large) Pulse (!) 103 Wt (!) 325 lb (147.4 kg) LMP 03/02/2019 (Exact Date) BMI 51.28 kg/m?? Deferred, as I just saw her for a physical exam 2 weeks ago I reviewed patient's most recent labs and note the following: HbA1c 5.8 --> 5.5 Recent normal TSH Recent unremarkable lipid panel ASSESSMENT/PLAN Narinder was seen today for consult. Diagnoses and all orders for this visit: Morbid obesity with BMI of 50.0-59.9, adult (HRC) - naltrexone (REVIA) 50 MG tablet; Take 1 Tablet by mouth daily. Start with a half tab for the first1-2 weeks Depression, unspecified depression type (HRC) Sleep apnea, unspecified type Prediabetes Secondary female infertility Vitamin D deficiency (HRC) - cholecalciferol (VITAMIN D3) 50 MCG (1999 UT) capsule; Take 1 Capsule by mouth daily. Routine health maintenance - Influenza IIV4 (Quadrivalent) 0.5mL (02889) -Agreed together to treat obesity-associated medical conditions and conditions exacerbated by or contributing to weight gain by medical management of weight: -Discussed the need to address all four pillars of medical weight management (nutrition, physical activity, behavior and medication) going forward for best chances of success in sustained weight loss -Discussed obesity as being a chronic, relapsing, multifactorial condition with a neurohormonal basis and that medical management should be though of as a fci treatment. -Managed expectations of weight loss and discussed aiming for sustained loss. -Discussed aim of 10% weight loss in first 6 months of treatment (and that 10% weight loss, if sustained has far reaching health benefits). -Patient will complete MWM questionnaire and return to clinic with this.Will have labs drawn and FU in clinic to look over these results, screening for obesity related disease and guiding weight loss medication choice. Taking the following medicaton with the potential side effect of weight loss: Prozac Taking the folllowing medications with the potential side effect of weight gain: none Potential future medications to trial for additional weight loss include the following: naltrexone, welbutrin The following weight-loss medications may not be recommended for this patient: none Plan for management includes the following: Nutrition: She knows what foods she should stay away from, but currently has really no ability to make healthy choices Physical activity: Goal is to take at least one 10 minutes walk at least 1 time a week Behavior: Continue to work with psychology and psychiatry on depression Medication: Start naltrexone. Half tab for the 1st 1-2 weeks, full tab after that. Next Visit Set up: Disposition: 1 month Labs or tests needed before that visit:No Ordered: No Total office visit was 40 minutes with greater than 50% of that time being spent in conseling and coordination of care. Marybeth Garcia MD (Elizabeth) Please excuse any errors committed by my voice recognition software. AT CONTROL documented in this encounter Plan of Treatment Not on filedocumented as of this encounter Visit Diagnoses Diagnosis Morbid obesity with BMI of 50.0-59.9, ad ult (HRC) - Primary Depression, unspecified depression type Sleep apnea, unspecified type Prediabetes Other abnormal glucose Secondary female infertility Female infertility of unspecified origin Vitamin D deficiency (HRC) Unspecified vitamin D deficiency Routine health maintenance Routine general medical examination at a health care facility documented in this encounter
--- OUTSIDE RECORDS SUMMARY | 2021-11-07 19:42 | XMS_ITS | Encounter Summary ---
:1980 Author Organization [facility] Address [address] [place] [address] Care Team Providers Name Role Phone Unavailable Primary Care Provider Unavailable Encounter Details Date Type Department Care Team Description 03/14/2019 Lab Visit [facility] Screening for HIV (human imm unodeficiency virus); [address]; [place] [address] Well woman exam (no gynecolo gical exam) [phone] Social History Tobacco Use Types Packs/Day Years [...] Name Priority Date/Time Associated Diagnosis Comme nts HIV 1/2 AG/AB 4TH Routine 03/14/2019 2:55 Screening for HIV (h uman Results for this GEN PM BIOMEDICAL ENGINEERING TECHNICIAN immunodeficiency virus) proc edure are in the results section. CREATININE / GFR Routine 03/14/2019 2:55 Well woman exam (no R esults for this PM BIOMEDICAL ENGINEERING TECHNICIAN gynecological exam) procedur e are in the results section. HEMOGLOBIN, BLOOD Routine 03/14/2019 2:55 Well woman exam (no Results for this PM BIOMEDICAL ENGINEERING TECHNICIAN gynecological exam) procedur e are in the results section. HGB A1C Routine 03/14/2019 2:55 Prediabetes Results for this PM BIOMEDICAL ENGINEERING TECHNICIAN procedure are i n the results section. documented in this encounter Results Hemoglobin, Blood (03/14/2019 2:55 PM BIOMEDICAL ENGINEERING TECHNICIAN) athologist Signature Hemoglobin 12.4 12.0 - 15.5 03/14/2019 [facility] g/dL 3:30 PM BIOMEDICAL ENGINEERING TECHNICIAN LABORATORY Specimen Anatomical Collection Method / Collection Time Recei adama Time (Source) Location / Volume Laterality Blood Venipuncture / 03/14/2019 2:55 03/14/2019 2:55 Unknown PM BIOMEDICAL ENGINEERING TECHNICIAN PM BIOMEDICAL ENGINEERING TECHNICIAN Charley Garcia MD LAB_1 Performing Organization Address [facility]/ZIP Code [facility] Brandie [facility] [address] [place], [place] [phone] Creatinine / GFR (03/14/2019 2:55 PM BIOMEDICAL ENGINEERING TECHNICIAN) athologist Signature Creatinine 0.60 0.55 - 03/14/2019 [place] 1.02 mg/dL 5:01 PM BIOMEDICAL ENGINEERING TECHNICIAN LABORATORY GFR, Estimated >60 >60 03/14/2019 [place] mL/min/1.7 5:01 PM BIOMEDICAL ENGINEERING TECHNICIAN LABORATORY 3m2 GFR, Est If >60 >60 03/14/2019 [place] mL/min/1.7 5:01 PM BIOMEDICAL ENGINEERING TECHNICIAN LABORATORY [place] 3m2 Specimen Anatomical Collection Method / Collection Time Recei adama Time (Source) Location / Volume Laterality Blood Venipuncture / 03/14/2019 2:55 03/14/2019 2:55 Unknown PM BIOMEDICAL ENGINEERING TECHNICIAN PM BIOMEDICAL ENGINEERING TECHNICIAN Charley Garcia MD LAB_1 Performing Organization Address City/[facility]/ZIP Code [facility] [address] [place], [place] [phone] Hgb A1C (03/14/2019 2:55 PM BIOMEDICAL ENGINEERING TECHNICIAN) athologist Signature Hemoglobin A1C 5.5 <=5.6 % 03/14/2019 [facility] 8:39 PM BIOMEDICAL ENGINEERING TECHNICIAN LABORATORY Specimen Anatomical Collection Method / Collection Time Recei adama Time (Source) Location / Volume Laterality Blood Venipuncture / 03/14/2019 2:55 03/14/2019 2:55 Unknown PM BIOMEDICAL ENGINEERING TECHNICIAN PM BIOMEDICAL ENGINEERING TECHNICIAN Charley Garcia MD LAB_1 Performing Organization Address City/[facility] Phon e Number [facility] [address] [place] [address] HIV 1/2 Ag/Ab 4th Generation (03/14/2019 2:55 PM BIOMEDICAL ENGINEERING TECHNICIAN) [facility] Method Time Signature HIV 1/2 Negative Negative 03/14/2019 [facility] Antigen/Antib (Non (Non 7:14 PM BIOMEDICAL ENGINEERING TECHNICIAN LABORATORY jessica (4th Reactive) Reactive) generation) Comment: HIV-1 p24 Antigen and HIV-1/HIV -2 Antibody not detected Specimen Anatomical Collection Method / Collection Time Recei adama Time (Source) Location / Volume Laterality Blood Venipuncture / 03/14/2019 2:55 03/14/2019 2:55 Unknown PM BIOMEDICAL ENGINEERING TECHNICIAN PM BIOMEDICAL ENGINEERING TECHNICIAN Charley Garcia MD LAB_1 Performing Organization Address [facility] Phon e Number [facility] [address] [place] [address] documented in this encounter Visit Diagnoses Diagnosis Screening for HIV (human immunodeficienc y virus) Special screening examination for other specified viral diseases Prediabetes Other abnormal glucose Well woman exam (no gynecological exam) Routine general medical examination at a health care facility documented in this encounter
--- OUTSIDE RECORDS SUMMARY | 2021-11-07 19:42 | XMS_ITS | Encounter Summary ---
:1980 Author Organization [facility] Address [address] [place] [address] Care Team Providers Name Role Phone Unavailable Primary Care Provider Unavailable Encounter Details Date Type Department Care Team Description 07/10/2018 Lab Visit [facility] Nocturia [address] [place] [id number] Social History Tobacco Use Types Packs/Day Years [...] Procedure Name Priority Date/Time Associated Comments Diagnosis URINALYSIS ROUTINE, Waiting 07/10/2018 10:00 AM Nocturia R esults for this MICRO/CULTURE IF POS CDT procedu re are in the results section. documented in this encounter Results Urinalysis Routine, Micro/Culture if Pos (07/10/2018 10:00 AM CDT) [facility] Method Time Signature Urine Color Yellow Straw-Yellow 07/10/2018 [facility] 10:10 AM CDT LABORATORY (PN) Urine Clarity Clear Clear 07/10/2018 [facility] 10:10 AM CDT LABORATORY (PN) Specific 1.020 1.005 - 07/10/2018 [facility] Sharon, 1.030 10:10 AM CDT LABORATORY Urine (PN) PH Urine 5.5 5.0 - 8.0 07/10/2018 [facility] 10:10 AM CDT LABORATORY (PN) Protein, Negative Neg/Trace 07/10/2018 [facility] Urine Qual 10:10 AM CDT LABORATORY (mg/dL) (PN) Glucose Urine Negative Negative 07/10/2018 [facility] Qual (mg/dL) 10:10 AM CDT LABORATORY (PN) Ketones, Negative Negative 07/10/2018 [facility] Urine (mg/dL) 10:10 AM CDT LABORATORY (PN) Urobilinogen, 0.2 <2.0 07/10/2018 [facility] Urine (EU/dL) 10:10 AM CDT LABORATORY (PN) Bilirubin Negative Negative 07/10/2018 [facility] Urine 10:10 AM CDT LABORATORY (PN) Blood, Urine Negative Neg/Trace 07/10/2018 [facility] 10:10 AM CDT LABORATORY (PN) Nitrite Urine Negative Negative 07/10/2018 [facility] 10:10 AM CDT LABORATORY (PN) Leukocyte Negative Negative 07/10/2018 [facility] Est. 10:10 AM CDT LABORATORY (PN) Specimen Anatomical Collection Method Collection Time Receive d Time (Source) Location / / Volume Laterality Urine URINE SPECIMEN Non-blood 07/10/2018 10:00 9 COLLECTION, CLEAN Collection / AM CDT 10:00 AM C DT CATCH / Unknown Unknown Thais Soto PA-C LAB_1 Performing Organization Address City/State/ZIP Code Phon e Number [facility] (PN) [address] [place] [phone] documented in this encounter Visit Diagnoses Diagnosis Nocturia documented in this encounter
--- OUTSIDE RECORDS SUMMARY | 2021-11-07 19:42 | XMS_ITS | Encounter Summary ---
:1980 Author Organization [employer] Address [address] [place] [address] Care Team Providers Name Role Phone Unavailable Primary Care Provider Unavailable Reason for Visit Reason Comments Appointment Encounter Details Date Type Department Care Team Description 02/17/2019 Telephone [facility] Nurse Line Found, No Pcp, Appointment [id number] [place] [phone] Social History Tobacco Use Types Packs/Day Years [...] documented as of this encounter Nursing Notes Sarah Caldwell RN - 02/17/2019 7:22 AM CST Patient calling, unsure where PT appointment is today. Advised appears is in [address], encouraged to look at first floor directory for more specific location. RIDER documented in this encounter Plan of Treatment Not on filedocumented as of this encounter Visit Diagnoses Not on filedocumented in this encounter
--- OUTSIDE RECORDS SUMMARY | 2021-11-07 19:42 | XMS_ITS | Encounter Summary ---
:1980 Author Organization [employer] Address [address] [address] Care Team Providers Name Role Phone Unavailable Primary Care Provider Unavailable Encounter Details Date Type Department Care Team Description 04/04/2019 Notes/Orders [facility] Bekah Castro, PT Physical Therapy [address] [address] [place] [address] [place], [place] [id number] [phone] Social History Tobacco Use Types Packs/Day Years [...] documented as of this encounter Progress Notes Bekah Castro, PT - 04/04/2019 11:59 PM CST Kim[facility] Mol[facility] Physical Therapy Discharge Summary Outcome measures at discharge: No outcome data collected. Attainment of goals: See above Patient Compliance with Therapy: Patient's attendance to therapy was inconsistent. Patient did not return for follow up care as planned, so unable to determine patient's current levelof function. Discharge recommendations: Patient will continue to work independently with home program/self management strategies. documented in this encounter Plan of Treatment Not on filedocumented as of this encounter Visit Diagnoses Not on filedocumented in this encounter
--- OUTSIDE RECORDS SUMMARY | 2021-11-07 19:42 | XMS_ITS | Encounter Summary ---
:1980 Author Organization [facility] [employer] Address [address] [place] [address] Care Team Providers Name Role Phone Unavailable Primary Care Provider Unavailable Reason for Visit Reason Comments Pelvic Health Encounter Details Date Type Department Care Team Description 04/04/2019 Office Visit [facility] Bekah Castro PT Mixed incontinence Center - Physical [address] [place] (Primary Dx) [place] [address] [facility] [address] [place] [address] Social History Tobacco Use Types Packs/Day Years [...] Progress Notes Bekah Castro, PT - 04/04/2019 1:00 PM CST Kimmy Molina [facility] Physical Therapy Progress Note Visit Number: 2 Initial Certification Period:03/06/2019 to 06/04/19 Referring Provider: Mera Arias Visit Diagnosis: 1. Mixed incontinence ?? Precautions: Depression SUBJECTIVE: Patient continues to have issues with urinary leakage especially at night. Notes that she has had issues since the age of 16 with nocturnal enuresis. She also has issues during the day. She reports that she is having a hard time remembering to do her exercises. She battles with depression and forgets her appointments as well. Notes that she is looking into bariatric surgery to try and manage her weight better as well. OBJECTIVE Current Objective Findings: External Pelvic Floor Exam: Perineal Visual Exam: Skin integrity is intact throughout perineum. Vaginal introitus is loose. Perineal body is descended. Voluntary Contraction Response: Present, Associated with accessory overuse of abdominals, gluteals Involuntary Contraction Response to Cough: Absent Involuntary Relaxation/Vasalva Response: Present Internal Pelvic Floor Exam: Vaginal Pelvic Floor Exam: Pelvic Floor Strength: Power 3/5 Endurance: 2 seconds Repetitions: 4 Fast contractions: 4 in 10 seconds Elevation: Present elevation with puborectalis recruitment Co-contraction: Absent co-contraction of transverses abdominal muscles Timing: Absent contraction of pelvic floor with cough Treatment/Education Today: Therapeutic exercise x 25 minutes: With patient verbal permission, performed exam as noted above. Reviewed performance of pelvic tilt, hip adductor isometrics and clam shell exercises. Instructed in and performed flicks and hold kegels with focus on isolation of movement especially not holding her breath. Self care/home management x 15 minutes: Reviewed controlling urge techniques. Discussed the psychological triggers for urgency and importance of retraining the bladder. Encouraged patient to use these techniques before she goes to bed at night. She is to limit her fluid intake 2 hours prior to her bedtime. Timed Code Treatment Minutes: 40 Total Treatment Minutes: 40 Current Home Exercise Program List: Flicks and hold kegels Controlling urge techniques Access Code: [email or web address] URL: [email or web address] Date: 03/06/2019 Prepared by: Bekah Castro ?? Exercises Supine Posterior Pelvic Tilt - 10 reps - 5 hold - 1x daily Supine Hip Adduction Isometric with Ball - 10 reps - 5 hold - 1x daily Clamshell - 10 reps - 1x daily ASSESSMENT/PROGRESS TOWARD GOALS: Patient seemed to understand the controlling urge techniques as well as the importance of an isolated pelvic floor contraction. Patient needs to be more compliant with her Home exercise program. Patient will benefit from skilled Physical Therapy to meet the goals listed below. Functional Goals/Outcomes: Verbalize understanding of bladder/bowel fitness principles to foster reduction in symptoms in 12 weeks in order to improve social situations Verbalize understanding of urge management strategies related to patient complaint to foster management of urgency symptoms in 12 weeks in order to improve social situations Report reduction in urinary incontinence from major to mild in 12 weeks in order to improve social situations Report ability to manage cough/sneeze with coordinated pelvic floor recruitment in 12 weeks in orderto improve social situations Patient is able to sleep through the night without leakage 1-2 nights per week in 12 weeks. PLAN: Recheck in 3 weeks to progress exercise. WICH HAND documented in this encounter Plan of Treatment Not on filedocumented as of this encounter Visit Diagnoses Diagnosis Mixed incontinence - Primary Mixed incontinence urge and stress (male )(female) documented in this encounter
--- OUTSIDE RECORDS SUMMARY | 2021-11-07 19:42 | XMS_ITS | Encounter Summary ---
:1980 Author Organization [facility] Address [address] [place] [address] Care Team Providers Name Role Phone Unavailable Primary Care Provider Unavailable Reason for Referral Consult/Transfer Care (Routine) - Closed Specialty Diagnoses / Procedures Referred By Contact Refer red To Contact Diagnoses Morbid obesity with BMI of 50.0-59.9, adult (C) Charley Garcia MD [address] [facility] [place] [address] Referral ID Status Reason Start Date Expiration Date Visits Requ ested Visits Authorized [id number] Closed 03/14/2019 06/12/2020 1 1 Scheduling Instructions Your provider has recommended an evaluat ion by our [facility]. The first step in this process i s to participate in a free information seminar this can be done online or in [facility]. To register for the online informational session register at [email or web address] To register for in person information session or for [facility] hospital[facility] r questions call [phone]. If you do not schedule your information session within the next 1 to 3 business days, we will call you to help arrange your session. We sug gest you call your health insurance company about your coverage and benefits for thi s service. [facility]E [facility] Consult/Transfer Care (Routine) - Closed Specialty Diagnoses / Procedures Referred By Contact Refer red To Contact Diagnoses Sleep apnea, unspecified type Charley Garcia MD [address] [place], [place] [address] Referral ID Status Reason Start Date Expiration Date Visits Requ ested Visits Authorized [id number] Closed 03/14/2019 06/12/2020 1 1 ATE PILOT Reason for Visit Reason Comments Annual Exam Encounter Details Date Type Department Care Team Description 03/14/2019 Office Visit Nguyen Huston Charley Garcia Well woman exam (no gynecological exam) (Primary Dx); Jessica Mcelroy MD Screening for HIV (human immunodeficienc y virus); [address] Sleep a pnea, unspecified type; Drive Dr Depression, unspecified depression type; [place], [place] Prediabete s; [id number] Morbid obesity with BMI of 50.0-59.9, ad ult ([facility]C) [phone] Social History Tobacco Use Types Packs/Day Years [...] Sign Reading Time Taken Comments Blood Pressure 118/78 03/14/2019 2:18 PM [facility] Pulse 96 03/14/2019 2:18 PM [facility] Temperature - - Respiratory Rate - - Oxygen Saturation - - Inhaled Oxygen Concentration - - Weight 148.3 kg (327 lb) 03/14/2019 2:18 PM [facility] Height 169.5 cm (5' 6.75) 03/14/2019 2:18 PM [facility] Body Mass Index 51.6 03/14/2019 2:18 PM [facility] documented in this encounter Patient Instructions Patient InstructionsCharley Garcia MD - 03/14/2019 2:00 PM CST Please call the Sleep Center at [phone] to schedule your appointment. ATE PILOT documented in this encounter Progress Notes Charley Garcia MD - 03/14/2019 2:00 PM CST Well Woman Exam Subjective Narinder Lucas is a 38 y.o. woman with hx of depression, sleep apnea, class 3 obesity who presents for a routine preventive physical exam. The patient has the following health and wellness goals: - improve her multiple chronic medical conditions The patient has the following acute health concerns: - pain everywhere, especially in knees - CAMRYN - hasn't been using CPAP because it hasn't been adjusted in some time - depression - seeing a psychiatrist, but finds that mood is really impacting her overall health - doesn't have motivation to eat well, exercise - morbid obesity - has considered weight loss surgery, because she would like to have more children but is currently not ovulating. Social History Social History Narrative Not on file Health Maintenance: Prevention Nutrition & exercise: poor diet, minimal exercise, limited by mental health, obesity, pain Sleep: see above Mental health: see above Screening - HbA1c, hgb, Cr, lipids Pap smear due May 2021. No history of abnormal pap smears. 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 Periods irregular, moderate. Patient's medications, allergies, past medical, surgical, social and family histories were reviewed and updated as appropriate. Review of Systems: With the exception of any items noted above, the remainder of the complete ROS is negative. Objective Filed Vitals: 03/14/19 1418 BP: 118/78 Pulse: 96 Weight: (!) 327 lb (148.3 kg) Height: 5' 6.75 (1.695 m) Estimated body mass index is 51.6 kg/m?? as calculated from the following: Height as of this encounter: 5' 6.75 (1.695 m). Weight as of this encounter: 327 lb (148.3 kg). General appearance: alert, appears stated age and no distress HEENT/Neck: Negative Back: negative, symmetric, no curvature. ROM normal. No CVA tenderness. Lungs: clear to auscultation bilaterally Heart: normal rate, regular rhythm; no murmur appreciated Abdomen: soft, non-tender; bowel sounds normal; no masses, no organomegaly Extremities: extremities normal, atraumatic, no edema Pulses: 2+ and symmetric Neurologic: Grossly normal Psych: no overt anxiety or depression PHQ9 Scores PHQ-9 03/14/2019 07/10/2018 PHQ-9 Score Total 21 14 Q1: Loss of Int/Pleas +++ ++ Q2: Depressed mood +++ + Q3: Sleep problems +++ +++ Q4: Tired/Low Energy +++ +++ Q5: Appetite change +++ ++ Q6: Feelings of failure +++ + Q7: Concentration Prob +++ + Q8: Slow or Restless - + Q9: Thought Self Harm - - Index Date: No date on file. Assessment/Plan 1. Well woman exam (no gynecological exam) - Influenza IIV4 (Quadrivalent) 0.5mL (85328) - Creatinine / GFR; Future - Hemoglobin, Blood; Future 2. Screening for HIV (human immunodeficiency virus) - HIV 1/2 Ag/Ab 4th Generation; Future 3. Sleep apnea, unspecified type Will have her call the sleep center to arrange for her CPAP to be adjusted. - CPAP Appointment Authorization - Adult 4. Depression, unspecified depression type ([facility]) Poorly controlled, but she is following with psychiatry 5. Prediabetes Last A1c was 5.8. Would be reasonable to start metformin to help with weight management - Hgb A1C; Future 6. Morbid obesity with BMI of 50.0-59.9, adult ([facility]) Discussed that I am happy to work with her on medical management, but weight clinic maybe better home for her given her comorbidities and potential desire for surgery - Weight Management and Bariatric Surgery Consult She will return to discuss her pain. Continue current medications same. We will notify the patient of test results. Counseling: - Discussed healthy, varied diet. - Discussed brushing, flossing, and dental visits. - Encouraged regular exercise. Preventive visit in 1 year, sooner as needed for any concerns. Marybeth Garcia MD (Elizabeth) Please excuse any errors committed by my voice recognition software. ATE PILOT documented in this encounter Plan of Treatment Scheduled Referrals Name Type Priority Associated Diagnoses Order S chedule CPAP Appointment Referral Routine Sleep apnea, Ordered: Authorization - Adult unspecified type Weight Management and Referral Routine Morbid obesity with BMI Ordered: 03/14/2019 Bariatric Surgery Consult of 50.0-59.9, a dult ([facility]) documented as of this encounter Results Hemoglobin, Blood (03/14/2019 2:55 PM [facility]) athologist Signature Hemoglobin 12.4 12.0 - 15.5 03/14/2019 [place] g/dL 3:30 PM [facility] Specimen Anatomical Collection Method / Collection Time Recei adama Time (Source) Location / Volume Laterality Blood Venipuncture / 03/14/2019 2:55 03/14/2019 2:55 Unknown PM [facility] PM [facility] Charley Garcia MD LAB_1 Performing Organization Address City/State/ZIP Code Phon e Number [facility] [address] [place], [place] [phone] Creatinine / GFR (03/14/2019 2:55 PM [facility]OT) athologist Signature Creatinine 0.60 0.55 - 03/14/2019 [place] 1.02 mg/dL 5:01 PM [facility] GFR, Estimated >60 >60 03/14/2019 [place] mL/min/1.7 5:01 PM [facility] 3m2 GFR, Est If >60 >60 03/14/2019 [place] mL/min/1.7 5:01 PM [facility] [place] 3m2 Specimen Anatomical Collection Method / Collection Time Recei adama Time (Source) Location / Volume Laterality Blood Venipuncture / 03/14/2019 2:55 03/14/2019 2:55 Unknown PM [facility] PM [facility] Charley Garcia MD LAB_1 Performing Organization Address City/[facility]/ZIP Code Phon e Number [facility] [address] [place], [place] [phone] Hgb A1C (03/14/2019 2:55 PM PR[facility] PILOT) P athologist Signature Hemoglobin A1C 5.5 <=5.6 % 03/14/2019 [place] 8:39 PM [facility] Specimen Anatomical Collection Method / Collection Time Recei adama Time (Source) Location / Volume Laterality Blood Venipuncture / 03/14/2019 2:55 03/14/2019 2:55 Unknown PM [facility] PM [facility] Charley Garcia MD LAB_1 Performing Organization Address City/[facility] Phon e Number [facility] [place] [address] HIV 1/2 Ag/Ab 4th Generation (03/14/2019 2:55 PM [facility]) Patholo gist Method Time Signature HIV 1/2 Negative Negative 03/14/2019 [place] Antigen/Antib (Non (Non 7:14 PM [facility] jessica (4th Reactive) Reactive) generation) Comment: HIV-1 p24 Antigen and HIV-1/HIV -2 Antibody not detected Specimen Anatomical Collection Method / Collection Time Recei adama Time (Source) Location / Volume Laterality Blood Venipuncture / 03/14/2019 2:55 03/14/2019 2:55 Unknown PM [facility] PM [facility] Charley Garcia MD LAB_1 Performing Organization Address City/[facility] Phon e Number [facility] [place] [address] documented in this encounter Visit Diagnoses Diagnosis Well woman exam (no gynecological exam) - Primary Routine general medical examination at a health care facility Screening for HIV (human immunodeficienc y virus) Special screening examination for other specified viral diseases Sleep apnea, unspecified type Depression, unspecified depression type Prediabetes Other abnormal glucose Morbid obesity with BMI of 50.0-59.9, ad ult ([facility]) documented in this encounter
--- OUTSIDE RECORDS SUMMARY | 2021-11-07 19:42 | XMS_ITS | Encounter Summary ---
:1980 Author Organization [employer] Address [address] [address] Care Team Providers Name Role Phone Unavailable Primary Care Provider Unavailable Reason for Visit Reason Comments Follow-up, NOS Phone Visit Encounter Details Date Type Department Care Team Description 04/25/2019 Phone Visit Mera Perea, Mixed inc ontinence (Primary Dx); [facility] [place] Nocturnal enuresis Urology [address] [place] [address] [phone] Social History Tobacco Use Types Packs/Day Years [...] Progress Notes Mera Cotton APRN, CNP - 04/25/2019 11:15 AM CDT Addended by: MERA COTTON on: 04/25/2019 11:12 AM Modules accepted: SmartSet Mera Cotton APRN, CNP - 04/25/2019 11:15 AM CDT Urology Progress Note SUBJECTIVE: Narinder is a 38 y.o. female with a history of mixed incontinence and nocturnal enuresis. Please see mylast note for full details. She failed Oxybutynin due to intolerable dry mouth. She noted great improvement with Myrbetriq 50 mg daily but ran out of her prescription. At our last visit she wanted to try another medication. We tried Trospium and pelvic floor PT. Interventions overall helped but she continues with urge incontinence, urinary frequency and urgency. She also continues with nocturnal enuresis about 4/7 nights of the week. She also is meeting with bariatric surgery. She does not have surgery scheduled but is in the process of getting this evaluated. ALLERGIES: Reviewed per EMR HOME MEDICATIONS: Reviewed per EMR SOCIAL HISTORY: Reviewed per EMR Review of systems: No chest pain, no shortness of breath. The rest of the complete review of systemsis negative other than what is stated in the HPI IMPRESSION: 1. Mixed incontinence 2. Nocturnal enuresis PLAN: 1. We discussed options. Plan to restart Myrbetriq, script sent. She is ready to consider urodynamics and third line therapies also. I did discuss her symptoms would likely also improve with weight loss so she may want to wait until after but she would like to proceed. She will stop Myrbertiq 5 days prior to UDS. Mera Cotton APRN, CNP This phone visit is a scheduled telephone visit. ?? Time spent on the phone with the patient: 12 minutes. documented in this encounter Plan of Treatment Not on filedocumented as of this encounter Visit Diagnoses Diagnosis Mixed incontinence - Primary Mixed incontinence urge and stress (male )(female) Nocturnal enuresis documented in this encounter
--- OUTSIDE RECORDS SUMMARY | 2021-11-07 19:42 | XMS_ITS | Encounter Summary ---
:1980 Author Organization [facility] Address [address], [place] [address] Care Team Providers Name Role Phone Unavailable Primary Care Provider Unavailable Reason for Visit Reason Comments Medication Request Encounter Details Date Type Department Care Team Description 01/05/2019 Telephone [facility] Zachary Wilson MD Medication Request Services-DIRECTOR OF STUDENT AFFAIRS [id number] [place] [address] [address] [place] [address] [place], [place] [phone] (Wo rk) [address] [phone] Social History Tobacco Use Types Packs/Day Years [...] documented as of this encounter Nursing Notes Rebeca Moran RN - 01/05/2019 5:05 PM CST Pt calling to request a refill of her provera. Hx of PCOS, seen in clinic in June of this year to discuss missed periods and infertility. Pt was placed on cyclic progesterone for 3 months.but she did not take her medication since she was getting her periods on her own after being seen in our clinic thefirst 2 months following appt. Pt says did not get a period in August and has not since.. Denies , but has not taken a HPT.States she has no sympotms. Advised to do a HPT this weekend with her first urine in the morning and call the nurse line back with her results.Pt agreed to plan. 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
--- OUTSIDE RECORDS SUMMARY | 2021-11-07 19:42 | XMS_ITS | Encounter Summary ---
:1980 Author Organization [employer] Address [address] [place] [address] Care Team Providers Name Role Phone Unavailable Primary Care Provider Unavailable Reason for Visit Reason Comments Future Appointments Encounter Details Date Type Department Care Team Description 04/24/2019 Telephone [facility] Mera Arias, Future Appointments Specialty [facility] - [place], GENERAL STUDIES PROGRAM CHAIR Urology [address] [facility] [address] [place], [place] [address] [phone] (Wo rk) Social History Tobacco Use Types [...] documented as of this encounter Nursing Notes Radha Robertson RN - 04/24/2019 11:59 AM CDT Called patient and got VM. SANDIPM asking pt to call scheduling to change her appointment from office visit to phone visit. documented in this encounter Plan of Treatment Not on filedocumented as of this encounter Visit Diagnoses Not on filedocumented in this encounter
--- OUTSIDE RECORDS SUMMARY | 2021-11-07 19:42 | XMS_ITS | Encounter Summary ---
:1980 Author Organization [facility] Address [address], [place] [address] Care Team Providers Name Role Phone Unavailable Primary Care Provider Unavailable Reason for Visit Reason Comments PHONE CALL TO PATIENT Encounter Details Date Type Department Care Team Description 06/04/2019 Telephone [facility] Bariatric Surgery & Oralia Knapp, PHONE CALL TO PATIENT Weight Center RN [address] [facility], [address] [place] [address] Social History Tobacco Use Types [...] encounter Nursing Notes Castro Knapp RN - 06/04/2019 3:46 PM CDT Please call clinic of where cpap machine was obtained. Ask for a down load of CPAP machine. Also geta copy of the last sleep study. Fax these 2 items to me at [phone]; attnatalia Brown. Call me if questions. [phone]. documented in this encounter Plan of Treatment Not on filedocumented as of this encounter Visit Diagnoses Not on filedocumented in this encounter
--- OUTSIDE RECORDS SUMMARY | 2021-11-07 19:42 | XMS_ITS | Encounter Summary ---
:1980 Author Organization [employer] Address [address] [address] Care Team Providers Name Role Phone Unavailable Primary Care Provider Unavailable Reason for Visit Reason Comments Nutrition Counseling Encounter Details Date Type Department Care Team Description 04/24/2019 Phone Visit [facility] Ame Espinal, Morbid o besity with BMI of 50.0-59.9, adult ([facility]); Surgery & Weight RDN, LD Sleep apnea, unspecified type Center [address] [place] [address] [address] [address] [place] [address] Social History Tobacco Use Types [...] encounter Progress Notes Ame Espinal, RD - 04/24/2019 3:00 PM CDT Nutrition Phone Note Referring Provider: Dr. Ascencio SUBJECTIVE: Patient reports in safe place to talk on phone . Initial intake/surgery track: From [place], moved to at 21 yo. Home during the day d/t child w/ autism, depression, back pain. Pt grocery shops, cooks but limited d/t other family members preferences. Lives w/ & son. No plan. Sleep issues, doesn't uses CPAP for CAMRYN. Lot of pain. 5 1/2 yoson w/ autism. Wants a meal plan. Eats out often Breakfast: leftovers from day before Lunch: sometimes eat out or cooks. Dinner: cook; rice or spaghetti No snacks usually; sometimes apple Protein foods: Beef or goat meat, some chicken, eggs, tuna Beverages: water; juice; pop when out Patient reports in safe place to talk on phone . Exercise: Patient is not engaging in physical activity. OBJECTIVE: Stated weight: 325# ASSESSMENT: See objective. PLAN: Medical Nutrition Therapy provided over the phone, including education and counseling on the following topics: Healthy Diet and Meal planning. Protein shakes & sources. Patient identified goals: 1. 3 meals/day. Use tracking bolivar. 2. Have a discussion w/ about cooking at home. 3. Healthy swaps while eating out - side salad instead of vegetable. Future Goals: protein intake, 3 meals/day, water intake, provide bariatric binder. Follow up with RD in one month. Time: 45 minutes. documented in this encounter Plan of Treatment Not on filedocumented as of this encounter Visit Diagnoses Diagnosis Morbid obesity with BMI of 50.0-59.9, ad ult ([facility]) Sleep apnea, unspecified type documented in this encounter
--- OUTSIDE RECORDS SUMMARY | 2021-11-07 19:42 | XMS_ITS | Encounter Summary ---
:1980 Author Organization [facility] Address [address] [address] Care Team Providers Name Role Phone Unavailable Primary Care Provider Unavailable Reason for Visit Reason Comments CONSULT AMENORRHEA x 5 months Encounter Details Date Type Department Care Team Description 02/28/2019 [facility] Olig omenorrhea, unspecified type (Primary Dx); Services-TENDER COORDINATOR Insulin resistance syndrome; [address] [employer], [id number] [place] [address] DR Jah pa infertility associated with anovulation; [address] Obesity, unspecified classification, uns pecified obesity type, unspecified whether serious [place] [address] [phone] (Wo rk) Social History Tobacco Use Types [...] - Inhaled Oxygen Concentration - - Weight 147.5 kg (325 lb 3.2 oz) 02/28/2019 11:24 AM FEEDER/FOLDER Height - - Body Mass Index 52.49 07/10/2018 10:18 AM CDT documented in this encounter Progress Notes Gabriela Wilson MD - 02/28/2019 11:15 AM CST Amenorrhea. Weight gain Depression Not exercising or diet Did not take provera as advised. Lost medication. Refill given. Chief complaint:patient is in office to discuss her secondary amenorrhea. She was seen in june 2018 for the same problem. She Was given provera for with drawal bleed. As per patient she never took it. After that [place] and put on more weight. She is depressed and not able to loose weight due to her lack of motivation. She is seeing a psychiatrist and unique been started on a medication. Her amenorrhea is likely due to anovulation. We discused role of weight loss in pcos and insulin resistance syndrome which she likley has. She has not been able to loose weight . alsi not changed her dietary habits. We talked at [facility] once again about dietary restrictions and caloric restrictions. Her lack of motivation is sec to her depression which is also due to having an autistic child at home. We will give her another prescription of provera for withdrawal bleeding. explained the risk of endometrial hyperplasia and cancer with unopposed estrogen. She does not want to take bcp as wants to conceive. currently likely she is anovulatory. PCP: REVIEW OF SYSTEMS: Constitutional: Negative for fever and chills. Skin: Negative for rash. HEENT: Negative for eye drainage, rhinorrhea, ear pain or sore throat. Respiratory: Negative cough, wheezing or shortness of breath. Cardiovascular: Negative for chest pain, chest pressure, palpitations or diaphoresis. Gastrointestinal: Negative for nausea, vomiting, diarrhea or abdominal pain. Genitourinary: Negative for dysuria, urgency, frequency, hematuria or flank pain. Extremities: Negative for joint swelling or joint pain. Neuro: Negative for change in sensory or motor function. Negative for headache. Endocrine: Negative for heat or cold intolerance. Hematological: Negative for bleeding, brusing or adenopathy. Psych: depression present. HISTORY: Past Medical History: Diagnosis Date ??? Depression (emotion) ??? Overactive bladder ??? Sleep apnea ??? Vitamin D deficiency (HRC) Past Surgical History: Procedure Laterality Date ??? APPENDECTOMY 2017 ??? SECTION 2013 OB History Para Term AB Living 1 1 1 0 0 1 SAB TAB Ectopic Multiple Live Births 0 0 0 0 1 # Outcome Date GA Lbr Barrera/2nd Weight Sex Delivery Anes PTL Lv 1 Term 07/30/13 41w0d 9 lb 3 oz (4.167 kg) M , u N LINDA FAMILY HX: Family History Problem Relation Age of Onset ??? Hypertension Father SOCIAL HX: Social History Socioeconomic History ??? Marital status: [...] file Gets together: Not on file Attends islam service: Not on file Active member of [...] ??? Weight Concern No Social History Narrative ??? Not on file ALLERGIES: No Known Allergies MEDICATIONS: Current Outpatient Medications Medication Sig Dispense Refill ??? diapers Please dispense adult nighttime diapers 90 Each 1 ??? FLUoxetine (PROZAC) 10 MG capsule TK 1 C PO QD 1 ??? medroxyPROGESTERone (PROVERA) 10 MG tablet Take 1 tablet By mouth daily from 26-30 of each monthfor 6 cycles. (Patient not taking: Reported on 03/14/2019) 30 Tablet 0 ??? mirabegron (MYRBETRIQ) 50 MG 24 hour release tablet Take 1 Tablet by mouth daily for 21 days. 21Tablet 0 ??? naproxen (NAPROSYN) 500 MG tablet 3 ??? tolterodine (DETROLLA) 4 MG 24 hour release capsule Take 1 Capsule by mouth daily. 30 Capsule 11 ??? Vitamin D, Ergocalciferol, 1.25 MG (36482 UT) CAPS 4 No current facility-administered medications for this visit. LABS: No results found for: WBC No results found for: HCT Hemoglobin (g/dL) Date Value 03/14/2019 12.4 No components found for: PLT Lab Results Component Value Date GLUCOSE 121 (H) 05/22/2018 HDL Cholesterol (mg/dL) Date Value 06/09/2018 40 LDL, Calculated (mg/dL) Date Value 06/09/2018 135 (H) No results found for: SODIUM No results found for: CHLORIDE No results found for: CO2 No results found for: BUN Creatinine (mg/dL) Date Value 03/14/2019 0.60 TSH, Reflex (uIU/mL) Date Value 05/22/2018 1.58 No components found for: LIVPNL FSH (mIU/mL) Date Value 06/09/2018 4.9 LH (mIU/mL) Date Value 06/09/2018 5 No components found for: PROL No components found for: INSUFR PHYSICAL EXAMINATION: Vitals: Wt (!) 325 lb 3.2 oz (147.5 kg) LMP 08/07/2018 (Approximate) Unknown BMI52.49 kg/m?? GENERAL: Patient is awake, alert, and oriented to time, place, and person and in no apparent distress. HEAD, EARS, NOSE : Head is normocephalic and atraumatic. Hearing is grossly intact bilaterally. Rest of the exam was defered by the patient. ASSESSMENT: > sec amennorehea > Obesity > depression > pcos /insulin resistance PLAN: > refer to [facility] for counseling > cyclical provera for withdrawal bleeding from day 20-30 f each calender month. > continued follow up with psychiatry. > call our office of no withdrawal bleeding noted after provera > establish with a pcp for dietary referral, referral for bariatric surgery ( patient enquiring about the same. ) told to discuss in depth with her pcp. > Education on dietary changes and behavioral modification were provided to patient. Healthy lifestyle modification with incorporation of daily cardiovascular exercise five times per week for 30 to 40 minutes advised. Patient also advised to take a multivitamin daily for well-being, calcium and vitamin D for breast and bone health. Patient was counseled about monthly self- breast exams. Patient verbalizes understanding of above as well as plan of care and agrees to it. - Spent 30 mins in the room with the patient today out of which more than 50 percent time was spent counseling the patient and coordinating care. Counseling specifically addressed the diagnostic recommendations/results, prognosis, risks, benefits, and alternatives of treatment options, and instructions for managment and follow-up of the aforementioned issues. Dictation disclaimer: Some notes are completed with voice-recognition dictation software. Typographical errors may result. Please contact me via [employer] staff message if you note any errors requiring clarification. ?? 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
--- OUTSIDE RECORDS SUMMARY | 2021-11-07 19:42 | XMS_ITS | Encounter Summary ---
:1980 Author Organization [facility] Address [address] [address] Care Team Providers Name Role Phone Unavailable Primary Care Provider Unavailable Reason for Visit Reason Comments QUESTIONS, GENERAL Encounter Details Date Type Department Care Team Description 05/31/2019 Telephone [facility] Oralia Knapp, QUESTIONS, GENERAL [facility] RN [address] [facility], [address] [place] [address] Social History Tobacco Use Types [...] encounter Nursing Notes Castro Knapp RN - 06/06/2019 2:31 PM CDT Following up on down load of CPAP needed. Left return phone number if questions Kiko Kasper RN - 05/31/2019 2:49 PM CDT Pt calling in and expressed confusion why she was to contact our office. She states a nurse told herto contact us for her CPAP clearance. She is not a patient of pulmonary and sleep clinic. After chart review noted that pt had a phone visit with Bariatric Surgery on 05/29/19: Pulmonary clearance is required prior to your bariatric surgery. Contact our Pulmonary department @[phone] to obtain instructions for CPAP download. Pt notified that since she is not a pt at our office we would not have access to her CPAP remote download. She would need to contact her [employer] where she got the device. She states they do send her information if she is not using the device so it appears they have remote access to her machine. She states she was not given a fax number for Bariatric Surgery to have download sent to them and she states she is confused about what exactly is needed. She would rather have someone from their office contact her DME to retreive this information. Forwarding on to bariatric surgerydepartment. Please contact pt to discuss further. If pt needs pulmonary/sleep clearance from our office she will need to establish care with one of our providers and a referral order should be placed, thank you! She was also transferred to ultrasound department per request. documented in this encounter Plan of Treatment Not on filedocumented as of this encounter Visit Diagnoses Not on filedocumented in this encounter
--- OUTSIDE RECORDS SUMMARY | 2021-11-07 19:42 | XMS_ITS | Encounter Summary ---
:1980 Author Organization [facility] Address [address] [place] [address] Care Team Providers Name Role Phone Unavailable Primary Care Provider Unavailable Reason for Referral Therapies (Routine) - Closed Specialty Diagnoses / Procedures Referred By Contact Refer red To Contact Diagnoses Mixed incontinence Mera Arias APRN, CNP [address] [place], [place] [address] Referral ID Status Reason Start Date Expiration Date Visits Requ ested Visits Authorized [id number] Closed 07/18/2018 09/16/2018 1 1 Scheduling Instructions Your provider has recommended an appoint ment with [facility]. You may call [phone] to schedule your a ppointment. If you do not schedule an appointment within the next 1 to 3 busin ess days, we will call you to help arrange your appointment. We suggest you call [facility] about your coverage and benefits for this appointme nt. Reason for Visit Reason Comments CONSULT Consult/Transfer Care (Routine) - Closed Specialty Diagnoses / Procedures Referred By Contact Refer red To Contact Diagnoses Other urinary incontinence Thais Soto, TAVIA [address] [place] [address] Referral ID Status Reason Start Date Expiration Date Visits Requ ested Visits Authorized [id number] Closed 07/10/2018 10/09/2019 1 1 Encounter Details Date Type Department Care Team Description 07/18/2018 Initial Consult Mera Perea, Mixed incontinence (Primary Dx); [facility] Overactive bladder; Urology [address] Nocturnal enuresis [address] [place], [place], [address] [place] [address] [phone] Social History Tobacco Use Types Packs/Day Years [...] Sign Reading Time Taken Comments Blood Pressure 124/74 07/18/2018 10:39 AM CDT Pulse 94 07/18/2018 10:39 AM CDT Temperature - - Respiratory Rate - - Oxygen Saturation - - Inhaled Oxygen Concentration - - Weight - - Height - - Body Mass Index - - documented in this encounter Progress Notes Mera Gusman, [place] - 07/18/2018 10:30 AM CDT Urology Progress Note HPI: Narinder Lucas is a 37 y.o. female with a history of mixed incontinence, urinary frequency, and nocturnal enuresis. She has had bedwetting issues since childhood. She has previously seen a urologist years ago where she was treated for OAB. She was started on oxybutynin which she did not tolerate due to dry mouth. She also completed pelvic floor PT which completely resolved her leakage issues but she has not done the exercises since. The severity of her symptoms is now moderate to severe. They are affecting her quality of life. She is very embarrassed by this. She was given some overnight pads from her PCP which she is leaking through as well. She states her most bothersome problem is urge incon tinence, although she does leak with coughing/laughing if she gets a strong urge. She denies dysuria, fevers, abdominal or flank pain. She is having normal BM's. Clinic UA: 07/10/18 normal PVR: 85mL Review of systems: No chest pain or shortness of breath. PMH/PSH/Meds/All/SH/FH reviewed. She has 1 child via . OBJECTIVE: General: Comfortable, alert, awake, oriented Psych: Judgment and insight intact Abdomen: soft, nontender, nondistended, no masses Back: no CVA tenderness Skin: warm, dry and intact Extremities: no swelling Female Genital Exam: External genitalia: normal hair distribution, vulva without lesions Bladder: not palpable, no evidence of cystocele Urethra: normal, non tender, 10 degrees of hypermobility, negative cough stress test Urethral meatus: normal anatomic position Vagina: no lesions, non tender ASSESSMENT: 1. Mixed incontinence 2. Nocturnal enuresis PLAN: 1. We had a long discussion today regarding her symptoms. She would like to try an additional medication. Will try Myrbetriq 50mg daily, we discussed possible elevation of BP which we will keep a closeeye on. 2. She is also interested in trying pelvic floor PT again. Order placed. 3. We discussed urodynamics. She would like to schedule this given they are scheduling out by 6 weeks in case there are no improvement in her symptoms. 4. Follow up in 4 weeks for symptom, PVR, and BP check. The patient and I reviewed the various treatment options for the working diagnosis of overactive bladder in its various forms including urinary frequency, urgency, nocturia, and urge incontinence. I discussed behavioral modification mechanisms, timed voiding, and diet and lifestyle management including causes such as excessive fluid intake, caffeine, alcohol, and other bladder irritants. We discussedphysical therapy, if indicated. We also discussed medical therapy. I reviewed the class of drugs known as anticholinergics and discussed the mechanism of action and also the common side effects, primarily dry mouth and constipation as well as drug-specific information. Additionally, we discussed the novel drug, mirabegron, and potential uses and side effects. We discussed other therapies including PTNS, Botox injection by cystoscopy (if indicated, we discussed side effects of therapy including retention, infection, etc.), InterStim (if indicated, we discussed specific surgical risks including thoserelated to implantation of a permanent medical record clerk), and surgical management. The patient understands that often one or more therapies is required. Failure of therapy is common and no one treatment modality works in all cases. The patient asked appropriate questions and has decided to pursue the above noted option. The patient understands that often urodynamic testing is required to determine the correct diagnosis and treatment pathway. Mera Gusman APRN, NEW documented in this encounter Plan of Treatment Scheduled Referrals Name Type Priority Associated Diagnoses Order [facility] Referral Routine Mixed incontinence Order ed: 07/18/2018 documented as of this encounter Visit Diagnoses Diagnosis Mixed incontinence - Primary Mixed incontinence urge and stress (male )(female) Overactive bladder Hypertonicity of bladder Nocturnal enuresis documented in this encounter
--- OUTSIDE RECORDS SUMMARY | 2021-11-07 19:42 | XMS_ITS | Encounter Summary ---
:1980 Author Organization [facility] Address [address], [place] [address] Care Team Providers Name Role Phone Unavailable Primary Care Provider Unavailable Encounter Details Date Type Department Care Team Description 08/02/2018 Notes/Orders Esha Fuller Therapy [address] [facility] [address] [place] [phone] (Wo rk) Social History Tobacco Use Types [...] documented as of this encounter Progress Notes Esha Montes, PT - 08/02/2018 10:01 AM CDT Patient did not show for her 45 min PT consultation this day. Esha Long, PT #[id number] 10:01 AM 08/02/2018 documented in this encounter Plan of Treatment Not on filedocumented as of this encounter Visit Diagnoses Not on filedocumented in this encounter
--- OUTSIDE RECORDS SUMMARY | 2021-11-07 19:42 | XMS_ITS | Encounter Summary ---
:1980 Author Organization [facility] Address [address] [place] [address] Care Team Providers Name Role Phone Unavailable Primary Care Provider Unavailable Encounter Details Date Type Department Care Team Description 04/24/2019 Notes/Orders [facility] Wilma Garcia MD [address] [place], [place] [id number] [place] [address] [phone] Social History Tobacco Use Types Packs/Day Years [...] documented as of this encounter Progress Notes Charley Garcia MD - 04/24/2019 9:49 AM CDT Please ask the patient if she would like a phone visit instead documented in this encounter Plan of Treatment Not on filedocumented as of this encounter Visit Diagnoses Not on filedocumented in this encounter
--- OUTSIDE RECORDS SUMMARY | 2021-11-07 19:42 | XMS_ITS | Encounter Summary ---
:1980 Author Organization [facility] Address [address], [place] [address] Care Team Providers Name Role Phone Unavailable Primary Care Provider Unavailable Reason for Visit Reason Comments Follow-up, NOS Encounter Details Date Type Department Care Team Description 08/22/2018 Office Visit Mera Perea, [employer] ontinence (Primary Dx); [facility] Nocturnal enuresis Urology [address] [place] [address] [phone] Social History Tobacco Use Types Packs/Day Years [...] Sign Reading Time Taken Comments Blood Pressure 122/80 08/22/2018 3:09 PM CDT Pulse - - Temperature - - Respiratory Rate - - Oxygen Saturation - - Inhaled Oxygen Concentration - - Weight - - Height - - Body Mass Index - - documented in this encounter Progress Notes Mera Gusman, [place] - 08/22/2018 2:30 PM CDT Urology Progress Note SUBJECTIVE: Narinder is a 37 y.o. female with a history of mixed incontinence and nocturnal enuresis. Please see mylast note for full details. I started her on Myrbetriq and recommended PFPT at our last visit. She also scheduled cystoscopy and urodynamics. Of note, she has tried and failed Oxybutynin in the past related to severe dry mouth. She has also been diagnosed with sleep apnea and insomnia, is using CPAP but she is having trouble tolerating this. She is here today for a 1 month follow up. In speaking with her today, she notes 60% improvement in overall leakage, urinary frequency, and urgency. She has had nocturnal enuresis on only a few occasions. She states she has more time and control in order to make it to the bathroom. She does wear pads but rarely leaks through now. She states sometimes leakage happens when walking but rarely related to urgency now. She is thrilled with the results. 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 She does have an autistic child and does not have support in caring for him. ALLERGIES: Reviewed per EMR HOME MEDICATIONS: Reviewed per EMR SOCIAL HISTORY: Reviewed per EMR Review of systems: No chest pain, no shortness of breath. The rest of the complete review of systemsis negative other than what is stated in the HPI OBJECTIVE: Blood pressure 122/80, last menstrual period 06/07/2018. Appearance: alert, well appearing, and in no distress. Psych: judgement and insight intact Skin: warm and dry Lungs: no respiratory distress UA: 07/10/18 clear PVR: 85 mL IMPRESSION: 1. Mixed incontinence 2. Nocturnal enuresis PLAN: 1. Again, she notes 60% improvement in urinary frequency, urgency, urge incontinence with 50mg Myrbetriq. She has tried and failed Oxybutynin. Her urinary symptoms may not be perfect but she is pleasedat this point and would like to cancel cystocopy and UDS. 2. I will send in a script for Myrbetriq. She will let me know of any cost issues. It appears this will not be covered, however she has tried and failed Oxybutynin so I will start a PA process. 3. PFPT is not conducive to her schedule right now. I discussed kegel exercises and gave her an instruction sheet. 4. I encouraged regular CPAP usage as they relate to nocturnal enuresis and nocturia. 5. Follow up in 6 months or sooner for worsening symptoms. Mera Gusman APRN, CNP documented in this encounter Nursing Notes Radha Robertson RN - 08/22/2018 2:30 PM CDT The prior authorization for Myrbetriq has been approved and has been sent to the pharmacy. Patient and Pharmacy has been notified. Radha Robertson RN documented in this encounter Plan of Treatment Not on filedocumented as of this encounter Visit Diagnoses Diagnosis Mixed incontinence - Primary Mixed incontinence urge and stress (male )(female) Nocturnal enuresis documented in this encounter
--- OUTSIDE RECORDS SUMMARY | 2021-11-07 19:42 | XMS_ITS | Encounter Summary ---
:1980 Author Organization [facility] Address [address] [place] [address] Care Team Providers Name Role Phone Unavailable Primary Care Provider Unavailable Encounter Details Date Type Department Care Team Description 01/30/2019 Notes/Orders Mera Perea, [facility] (Primary Dx) Urology [address] [place] [address] [phone] Social History Tobacco Use Types Packs/Day Years [...]
--- OUTSIDE RECORDS SUMMARY | 2021-11-07 19:42 | XMS_ITS | Encounter Summary ---
:1980 Author Organization [facility] Address [address], [place] [address] Care Team Providers Name Role Phone Unavailable Primary Care Provider Unavailable Reason for Visit Reason Comments CONSULT Encounter Details Date Type Department Care Team Description 05/29/2019 Phone Visit [facility] obesity with BMI & Weight Center SHEYLA Erazo of 50.0-59.9, adult [address] [facility], ([place]) (Primary Dx) [address] [place] [address] Social History Tobacco Use Types Packs/Day Years [...] - Inhaled Oxygen Concentration - - Weight 152 kg (335 lb) 05/29/2019 9:23 AM CDT Height 170.2 cm (5' 7) 05/29/2019 9:23 AM CDT Body Mass Index 52.47 05/29/2019 9:23 AM CDT documented in this encounter Patient Instructions Patient InstructionsSoCastro dove RN - 05/29/2019 9:00 AM CDT Welcome to [facility]! The Bariatric Center, providers and care team want to support you on your journey toward the best health possible. We are committed to providing care and encouragement throughout your life. All visits are an important part of your everyday health and halfway success. We look forward to seeing you and the opportunity to review your accomplishments and discuss your concerns. Read your handbook you received today multiple times as you progress through this pre- surgical process and bring your handbookto each and every visit. You are requested to contact your cattle care worker with any insurance changes to determine if your criteria for weight loss surgery changes. If you haven't already, begin taking the complete multivitamin and vitamin D as instructed. Bariatric Lab Instructions Instructions for lab draws include the followin. No vitamins or supplements for 24 hours prior to the test 2. No alcohol for 24 hours prior to the test 3. You must fast (no food or fluids other than water) for 12-14 hours prior to the test. It would be preferable to have your blood drawn at a [facility] or [facility] lab. However, should you choose to have it done at another lab, please have the results faxed to [phone]. Your lab orders will within 30 days of being ordered * You will be notified by mail of the test results in approximately 2 weeks with instructions for any changes that need to be made as a result of your tests. If changes are made in your supplements, clement recheck those abnormal tests again in three months. Appointments are required for lab visits except at the [place] lab. Please call [phone] to schedule a lab visit at other [facility] locations. NSAID'S (ibuprofen, aleve, advil, motrin, naproxen etc..) are not recommended for 7 days before and not recommended after you weight loss surgery procedure. Consult with your medical provider for alternative treatment options prior to your scheduled surgery. Pulmonary clearance is required prior to your bariatric surgery. Contact our Pulmonary department @ [phone] to obtain instructions for CPAP download. An order has been placed for an ultrasound of your right upper quadrant of your abdomin. Contact your clinic or [facility] to schedule: [phone]. Consult with your medical provider/PLASTIC BUBBLE PACKER to assist with control methods. Recommended 2 forms of control for the first 18 months following any weight loss procedure. Recommended you begin using 2 forms of control now. Support Group: Our support group meets the and Tuesday of every month from 5:30 to 6:30 pm in the lobby of our clinic. This is a support group for those who are considering or have undergone bariatric surgery. The groupexists to encourage the well-being of the whole person - body, mind and spirit. This group is a place of safety and support, where no one is judged, and each person is warmly welcomed. Please join us! Exercise: What: A group exercise program for patients who are in the weight management program and would like to start or progress an exercise regimen. When: Tuesdays and 5:45-6:30 PM Where: [facility]- ground floor of the [facility]. How: Come to any class (First class is free!), and if you like it purchase a 16 class voucher and then come when you can! By signing up you are NOT committed to class, simply acknowledging interest. Class is limited to 6 participants Cost: $150 for a 16 session voucher. -For more information please contact Valerie at [phone] or [email or web address] Room Castro Knapp RN 9:02 AM 05/29/2019 documented in this encounter Progress Notes Castro Knapp RN - 05/29/2019 9:00 AM CDT This visit was done over the phone due to the covid 19 pandemic. Department of Bariatric Surgery cost manager Visit SUBJECTIVE: This 38 y.o. year-old female is seen for obesity assessment, discussion of obesity surgery and review of medical history. Past Medical History: Morbid Obesity. The onset of obesity occurred at approximately 28 years of agewith gradual escalation into adulthood. Morbid obesity has been present for at least 10 years. A detailed explanation of obesity surgery including risks, benefits and uncertainties were received at the previous group information session. A copy of A Guide to Better Health for ongoing review and reference was also provided. The opportunity was given to have all questions answered at that session. Past Medical History: Diagnosis Date ??? Depression (emotion) ??? Overactive bladder ??? Sleep apnea ??? Vitamin D deficiency (HRC) OBESITY RELATED HEALTH PROBLEMS: Please refer to visit with Dr Gabriel on 04/24/19 which remains current. PREVIOUS BARIATRIC SURGERY: Past Surgical History: Procedure Laterality Date ??? APPENDECTOMY 2016 ??? SECTION 2013 cholecalciferol (VITAMIN D3) 50 MCG (2000 UT) capsule, Take 1 Capsule by mouth daily. (Patient not taking: Reported on 05/29/2019), Disp: 100 Capsule, Rfl: 3 diapers, Please dispense adult nighttime diapers, Disp: 90 Each, Rfl: 1 FLUoxetine (PROZAC) 10 MG capsule, TK 1 C PO QD, Disp: , Rfl: 1 medroxyPROGESTERone (PROVERA) 10 MG tablet, Take 1 tablet By mouth daily from 26-30 of each month for 6 cycles. (Patient not taking: Reported on 05/29/2019), Disp: 30 Tablet, Rfl: 0 mirabegron (MYRBETRIQ) 50 MG 24 hour release tablet, Take 1 Tablet by mouth daily., Disp: 90 Tablet,Rfl: 3 naltrexone (REVIA) 50 MG tablet, Take 1 Tablet by mouth daily. Start with a half tab for the first 1-2 weeks, Disp: 30 Tablet, Rfl: 0 naproxen (NAPROSYN) 500 MG tablet, , Disp: , Rfl: 3 traZODone (DESYREL) 50 MG tablet, Take 50 mg by mouth daily at bedtime., Disp: , Rfl: Vitamin D, Ergocalciferol, 1.25 MG (59636 UT) CAPS, , Disp: , Rfl: 4 No current facility-administered medications on file as of 05/29/2019. No Known Allergies OBJECTIVE: Filed Vitals: 05/29/19 0923 Weight: (!) 335 lb (670099 g) Height: 5' 7 (170.2 cm) BMI: 52.47] [place] Weight ([employer]): 144.5lb Excess Weight: 190.5 ASSESSMENT: Narinder appears to be a candidate for bariatric surgery at this time. Ongoing evaluation by care team required prior to team decision determining surgical candidacy. Instructed to begin taking complete multivitamin and Vitamin D as documented in handbook materials. PLAN: Patient reports having high blood pressure in the past and a nurse telling her she has high blood sugars. Patient said will follow up with PCP. Advised to also talk about needing 2 forms of control. Patient reports Prozac not working despite increase of dose. Patient said will follow up with the doctor who prescribed it. Patient plans to get initial labs drawn on same day as US RUQ. Discussed NSAID use with both surgeries. Will schedule physical therapy at later time. Advised video visits may be available. Carbide Die Maker spent 1.5 hours with patient. Patient seemed to understand everything. May need more reinforcement of pre and post diet. This will happen over th next 6 months with the [facility] team as is required by her insurance. Discussed [facility] prior authorization requirements. An understanding of bariatric surgery, including its risks and benefits were verbalized by the patient. An understanding of the necessity for commitment to life-long follow-up, lifestyle changes and dietary modification required for long-term success was also verbalized. documented in this encounter Plan of Treatment Not on filedocumented as of this encounter Visit Diagnoses Diagnosis Morbid obesity with BMI of 50.0-59.9, ad ult ([place]) - Primary documented in this encounter
--- OUTSIDE RECORDS SUMMARY | 2021-11-07 19:42 | XMS_ITS | Encounter Summary ---
:1980 Author Organization [facility] Address [address], [place] [address] Care Team Providers Name Role Phone Unavailable Primary Care Provider Unavailable Reason for Visit Reason Comments Nutrition Counseling Encounter Details Date Type Department Care Team Description 05/29/2019 Telemedicine [facility] Esp[place], Morbid o besity with BMI of 50.0-59.9, adult (HRC); Surgery & Weight RDN, LD Sleep apnea, unspecified type Center [address] [facility] [address] [facility] [address] [place] [address] [phone] Social History Tobacco Use Types Packs/Day Years [...] as of this encounter Patient Instructions Patient InstructionsWhAme carmona RD - 05/29/2019 8:30 AM CDT Patient identified goals: 1. Read bariatric packet nutrition section. 2. Maintain 3 meals/day. 3. Try protein shakes. 4. Discussion w/ about not needing to make separate meals. documented in this encounter Progress Notes Teddy Ame M, RD - 05/29/2019 8:30 AM CDT [facility] Medical Nutrition Therapy: Bariatric MWM Follow-Up This visit was conducted via video. Location of clinician clinic. Location of patient home. Billing based on: Time 30 minutes spent on the phone with the patient, with 100% in counseling and coordination of care. ASSESSMENT: Referring Provider: Carrie Gabriel BMI: Estimated body mass index is 51.28 kg/m?? as calculated from the following: Height as of 03/14/19: 5' 6.75 (169.5 cm). Weight as of 03/21/19: 325 lb (842771 g).. Since last RD visit: Received resources in mail. Hasn't been able to buy protein shakes d/t pandemic. Eating at home more now, didn't have discussion w/ about eating out less. Doesn't use CPAP every night, issues w/ insomnia and falling asleep on the couch. Discussed whole grains, grew up eating white rice, etc. Asked about carbs being stored into fat, discussed. Eating out right now d/t lackof groceries. Drinking a lot of water. Discussed OCD. Breakfast: Leftovers (ie pizza) or PB toast - tired in the morning Lunch: Ordered in yesterday ([employer]) or will cook sometimes Dinner: Pizza Patient is not an appropriate candidate for desired bariatric surgery based on current dietary habits. Patient would likely be a better candidate by maintaining 3 meals/day, reducing fast food, fruit orvegetable intake. Patient will return for follow up [...] MONITORING AND EVALUATION: Patient identified goals: 1. Read bariatric packet nutrition section. 2. Maintain 3 meals/day. 3. Try protein shakes. 4. Discussion w/ about not needing to make separate meals. Follow up with dietitian in one month for medical weight management. Future areas of discussion: Nutrition section of bariatric packet, fast food intake, whole grains, fruit & vegetable intake.. Time: 30 minutes. documented in this encounter Plan of Treatment Not on filedocumented as of this encounter Visit Diagnoses Diagnosis Morbid obesity with BMI of 50.0-59.9, ad ult (HRC) Sleep apnea, unspecified type documented in this encounter
--- OUTSIDE RECORDS SUMMARY | 2021-11-07 19:42 | XMS_ITS | Encounter Summary ---
:1980 Author Organization [facility] Address [address], [place] [address] Care Team Providers Name Role Phone Unavailable Primary Care Provider Unavailable Reason for Visit Reason Comments Follow-up, NOS Encounter Details Date Type Department Care Team Description 01/26/2019 Office Visit Mera Perea, [facility] (Primary Dx); [facility] [place] Nocturnal enuresis Urology [address] [place] [id number] [phone] Social History Tobacco Use Types Packs/Day Years [...] Sign Reading Time Taken Comments Blood Pressure 124/84 01/26/2019 11:18 AM WASTE DUSTER Pulse - - Temperature - - Respiratory Rate - - Oxygen Saturation - - Inhaled Oxygen Concentration - - Weight - - Height - - Body Mass Index - - documented in this encounter Progress Notes Mera Arias, [place] - 01/26/2019 11:15 AM CST Urology Progress Note ?? SUBJECTIVE: Narinder is a 37 y.o. female with a history of mixed incontinence and nocturnal enuresis. Please see mylast note for full details. She failed Oxybutynin due to intolerable dry mouth. She noted great improvement with Myrbetriq 50 mg daily but this has slowly started losing its effectiveness. She would wake up wet some mornings, initially this was resolved. She ran out her prescription last month and realizes how significant her symptoms are. She did not know there were refills available. Her incontinence is back at baseline, soaking through 3 sets of clothing daily. Urgency and frequency are again an issue. She is requesting to start a different medication. She denies dysuria, hematuria, fever, chills. ? ALLERGIES: Reviewed per EMR ?? HOME MEDICATIONS: Reviewed per EMR ?? SOCIAL HISTORY: Reviewed per EMR Review of systems: No chest pain, no shortness of breath. The rest of the complete review of systemsis negative other than what is stated in the HPI ?? OBJECTIVE: Blood pressure 122/80, last menstrual period 06/07/2018. Appearance: alert, well appearing, and in no distress. Psych: judgement and insight intact Skin: warm and dry Lungs: no respiratory distress ? IMPRESSION: 1. Mixed incontinence 2. Nocturnal enuresis ? PLAN: 1. I advised her to just resart on Myrbetriq since it had worked so well in the past but she wants to try something different because she thought this stopped working as well. We did discuss the other options have similar side effects as Oxybutynin including dry mouth, dry eyes, constipation. She is aware. Will try Trospium ER 60mg daily. 2. Now that her son is in school she would like to try pelvic floor PT as well. 3. Follow up with me in 2 months to discuss progress. ?? Mera Gusman APRN, NEW ?? E DUSTER documented in this encounter Plan of Treatment Not on filedocumented as of this encounter Visit Diagnoses Diagnosis Mixed incontinence - Primary Mixed incontinence urge and stress (male )(female) Nocturnal enuresis documented in this encounter
--- OUTSIDE RECORDS SUMMARY | 2021-11-07 19:42 | XMS_ITS | Encounter Summary ---
:1980 Author Organization [facility] Address [address] [place] [address] Care Team Providers Name Role Phone Unavailable Primary Care Provider Unavailable Reason for Visit Reason Comments Pelvic Health Therapies (Routine) - Closed Specialty Diagnoses / Procedures Referred By Contact Refer red To Contact Diagnoses Mixed incontinence Mera Arias, AUTO RADIO MECHANIC, NATURAL RESOURCE MANAGER [address] [place], [place] [address] Referral ID Status Reason Start Date Expiration Date Visits Requ ested Visits Authorized [id number] Closed 07/18/2018 09/16/2018 1 1 Encounter Details Date Type Department Care Team Description 03/06/2019 [facility], PT Mixed incontinence Center - Physical [address] (Primary Dx) [place] [address] [facility] [address] [address] [place] [address] Social History Tobacco Use Types [...] encounter Progress Notes Bekah Castro, PT - 03/06/2019 2:30 PM CST [facility] Physical Therapy - Pelvic Floor Evaluation/Plan of Care Initial Certification Period: 03/06/2019 to 06/04/19 Referring Provider: Mera Arias Visit Diagnosis: 1. Mixed incontinence Precautions: Depression Orders: Evaluate & treat Onset/Referral Date: 07/18/18 SUBJECTIVE Reason for Visit: Patient reports that she has had nocturnal enuresis since the age of 16. Symptoms worsened in the last year in that she was having incontinence issues during the day as well, both stress and urge incontinence. Symptoms during the day have improved on Myrbetriq. Patient reports that she no longer sleeps in the same bed with her because of her lack of bladder control. She is fearful to go out because she is embarrassed to have an accident. Patient Therapy Goals: improved control of her bladder symptoms. Past Medical History: Narinder has a past medical history of Depression (emotion), Overactive bladder, Sleep apnea, and Vitamin D deficiency (HRC). Recently Experienced (Red Flags): None Surgeries: Patient has a past surgical history that includes section (2013) and appendectomy (2016).. Medications: Patient has a current medication list which includes the following prescription(s): diapers, fluoxetine, medroxyprogesterone, mirabegron, naproxen, tolterodine, and vitamin d (ergocalciferol).. Previous Treatment: Physician exam: See EMR for physician findings Medication trial: Luístrlefty Benefited from previous treatment: yes, she has had less leakage issues during the day on Myrbetriq.Notes that she has had biofeedback in the past without significant change. Urinary Function: Urinary leakage: The amount of urinary leakage is severe and presents varying amounts, requiring no pad wear. Patient notes that she wakes up every morning with her clothing and bedding weight. She chooses just to change clothes during the day since none of the pads can hold the urine. Leakage provoked with strong urge to void, walking to toilet, coughing, sneezing, hearing water run, position change, elizondo in door Urinary frequency: Voiding during waking hours is 4-5 times per day and 0 time per night, and does feel she empties bladder fully. Once urge to void presents, able to delay urination not at all. Patient reports there is not pain with urination and there is not blood in urine. Pelvic pressure/heaviness or prolapse: None noted Bowel Function: No problems related to bowel function noted. Patient reporting no diarrhea, constipation and indicates no straining/splinting with bowel function. Abdominal/Pelvic Pain History: No problems related to abdominal or pelvic pain reported Obstetric/Gynecologic History: Narinder is sexually active. History of 1 pregnancies, with 0 vaginal deliveries and 1 deliveries. 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 Verbal and written consent for physical therapy examination was obtained. Observation: Mood, orientation and behavior are appropriate Mobility/Transfer: patient transfers without limitation Musculoskeletal Exam Lumbopelvic Exam: Deferred Internal Pelvic Floor Exam: Deferred Clinical Examination: High Complexity: Addressed 4 or more elements from body structures and functions (see above), and/orfunctional limitations as noted below. Today's Intervention/Charges: Physical Therapy Evaluation was completed and the patient was educatedon the condition, planned therapy intervention and expectations from treatment. Therapeutic exercise x 10 minutes: Patient deferred vaginal exam since she has her period. Instructed in and performed - Access Code: [email or web address] URL: [email or web address] Date: 03/06/2019 Prepared by: Bekah Castro Exercises Supine Posterior Pelvic Tilt - 10 reps - 5 hold - 1x daily Supine Hip Adduction Isometric with Ball - 10 reps - 5 hold - 1x daily Clamshell - 10 reps - 1x daily Self care/home management x 20 minutes: Patient was educated in bladder/pelvic floor muscle anatomy and normal urinary function. Instructed and trained in food and fluid irritants, fluid intake and healthy bladder habits. Educated in not using valsalva voiding. Trained in eliminating ???just in case?? voiding and decreasing reliance on pads. Instructed in bladder inhibition/urge suppression techniques. Patient is to use her inhibition techniques when she goes to bed at night as well. Encouraged herto increase her water intake and to consciously go to the bathroom every 2-3 hours even if she does not feel that she needs to go. Educational material issued and reviewed. Timed Code Treatment Minutes: 30 Total Treatment Minutes: 50 ASSESSMENT Therapist Impression/Summary: Patient presents 10 minutes late for her appointment. We spent a lot of time discussing her symptoms and the principles of inhibition of urge and different factors that can influence her symptoms. Patient deferred vaginal exam due to having her period. Patient will benefit from skilled Physical Therapy to meet the goals listed below. PT Clinical Presentation: Moderate Complexity: Evolving Clinical Presentation with changing clinical characteristics Clinical Decision Making: Moderate Complexity Recommendations/Equipments: none Significant Impairments: Muscle weakness Functional Limitations: Difficulty with sleeping, transition to bathroom, managing elizondo in door situation, pursuing social activities due to need for [email or web address] access Goals/Functional Outcomes: Verbalize understanding of bladder/bowel fitness principles to [...] 1-2 nights per week in 12 weeks. Potential Barriers to Goal Achievement or Learning: none Prognosis: Good PLAN Planned Intervention/Education: ADL/Self management, Neuromuscular re-education, Therapeutic Exercise Frequency: 3-6 treatments in the next 12 weeks Duration: 90 days Discharge Plan: Patient will [...] the care plan. Plan for Next Treatment: Perform external and internal exam The ginger farmer is completed by the therapist and the referring clinician's electronic signature certifies medical necessity for the plan above. 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
--- OUTSIDE RECORDS SUMMARY | 2021-11-07 19:42 | XMS_ITS | Encounter Summary ---
:1980 Author Organization [facility] Address [address] [place] [address] Care Team Providers Name Role Phone Unavailable Primary Care Provider Unavailable Reason for Referral Procedure/Equipment (Routine) - Incomplete Specialty Diagnoses / Procedures Referred By Contact Refer red To Contact Diagnoses Morbid obesity with BMI of 50.0-59.9, adult (HRC) Carrie Ascencio, [facility] Procedures [facility] RUQ Organs [address] [place], [place] [address] Referral ID Status Reason Start Date Expiration Date Visits V isits Requested Authorized [id number] Incomplete 04/24/2019 07/23/2020 1 1 Reason for Visit Reason Onset Date Comments Phone Visit 04/24/2019 Consult/Transfer Care (Routine) - Closed Specialty Diagnoses / Procedures Referred By Contact Refer red To Contact Diagnoses Morbid obesity with BMI of 50.0-59.9, adult (HRC) Charley Garcia MD [address] [place], [place] [address] Referral ID Status Reason Start Date Expiration Date Visits Requ ested Visits Authorized [id number] Closed 03/14/2019 06/12/2020 1 1 Encounter Details Date Type Department Care Team Description 04/24/2019 Phone Visit [facility] Bariatric Surgery Carrie Ascencio, Morbid obesity with BMI of 50.0-59.9, adult ([facility]) (Primary Dx); & [facility] Sleep apnea, unspecified type; [address] veractive bladder; [address] Depression, unspecified depression type [place], [place] [id number] [phone] Social History Tobacco Use Types Packs/Day Years [...] as of this encounter Patient Instructions Patient InstructionsCarrei Ascencio MBChB - 04/24/2019 2:00 PM CDT Weight Management Lab Instructions- Please have [...] prior to the test. You may call [phone] to schedule a lab appointment; however, the labs do allow walk-in visits. documented in this encounter Progress Notes Carrie Ascencio MBChB - 04/24/2019 2:00 PM CDT Metabolic Health and Weight Management INITIAL ASSESSMENT CHIEF COMPLAINT Chief Complaint Patient presents with ??? Phone Visit HPI Today's visit with Narinder Lucas was conducted as a scheduled telephone visit for implementation of social distancing secondary to the potential consequences of racquel COVID 19. Disclosure/Informed Consent: I discussed with the patient that this visit is a phone visit that will be billed to their insurance. They indicated understanding that they may receive a bill for this visit. Narinder Lucas is a 38 y.o. female with chronic medical problems including depression, OCD, overactive bladder, vitamin-D deficiency , who was referred/seeks to treat the following obesity-associated medical conditions by aggressive management of weight: Obstructive sleep apnea (not using CPAP consistently as unable to tolerate mask), weight-bearing joint pain, stress incontinence. She has met with her primary care provider for medical weight management and was started on naltrexone 50 mg daily for the purposes of weight loss 03/21/19. Has noted some decreased appetite since taking. Has tried over the counter weight loss pills with minimal weight loss and resultant weight regain. Patient's weight history is as follows: Attributes struggles to depression and social isolation in the past affecting relationship with food. 140 lbs when moved [email or web address] Continues to feel disconnected and social isolated. (Rashid). 6year old son with autism. Endorses grazing, eating after dinner, emotional eating, carbohydrate craving and experiencing constant hunger. Endorses some feelings of being out of control when eating and does feel addicted to food. She follows with psychiatry : Dr Renan Wilson, in [place] and a psychologist, Alfred, every , at [facility] in [place]. Has tried dieting in the past with minimal success. Does not feel she has time to cook and feels limited by chronic back pain. Aware diet is carbohydrate based (rice and bread based). Intents to attempt conception again in the future. Would like to lose weight first. Currently not onany contraception. Denies any prior self harm or suicidal ideation. Denies currently actively or PMHx of GERD symptoms. Does have gallbladder in-situ. Patient has made previous weight loss attempts: Yes [employer] Previous medication trials for weight loss: Significant Eating Patterns Patient eats most at home: Yes Patient cooks most of my meals: Yes Patient orders out many meals per week: No Patient eats most of meals at the kitchen table without distraction: Yes Patient eats most of my meals in front of the TV, computer or other electronic devices: No Overeating: Never Waking up at night to eat: Never Current Binge Eating Symptoms: Objective binges at least 1x per week for the past 3 months: False Patient senses lack of control over eating during the binges: True Eating until uncomfortably full: False Eating large amounts when not physically hungry: False Eating much more rapidly than usual: True Eating alone due to being embarrassed by the amount eaten: False Patient feels disgusted, depressed, or guilty after overeating: False Addicted to food: True REVIEW OF SYSTEMS: A complete 10-point ROS was negative with the exception of the following: Review of symptoms positive for the following: Fatigue Dental Problems Low Back Pain Pertinant negatives: Dizziness Headaches Excessive burping Palpations Chest Pain Nausea Shortness of Breath At Rest Shortness of Breath Walking Blurry Vision Over the past year, the patient notes the following: Burning or pain behind breastbone: Never Burning or pain in upper abdomen: Never Bitter liquid coming up from your stomach into your throat: Never Stomach bloat or a heavy stomach during or after a meal: Often Sick during or after a meal: Never Something gets stuck in your throat when you swallow: Never Something gets stuck in your chest when you swallow: Never Nausea or you vomit: Never Average hours of sleep per night: 6 Stop Bang Score: 3 Patient Active Problem List Diagnosis ??? Vitamin D deficiency (HRC) ??? Sleep apnea ??? Depression (emotion) ??? Overactive bladder ??? Morbid obesity with BMI of 50.0-59.9, adult (HRC) Past Surgical History: Procedure Laterality Date ??? APPENDECTOMY 2016 ??? SECTION 2014 CURRENT MEDICATIONS: Outpatient Medications Prior to Visit Medication Sig Dispense Refill ??? cholecalciferol (VITAMIN D3) 50 MCG (2000 UT) capsule Take 1 Capsule by mouth daily. 100 Capsule3 ??? diapers Please dispense adult nighttime diapers 90 Each 1 ??? FLUoxetine (PROZAC) 10 MG capsule TK 1 C PO QD 1 ??? medroxyPROGESTERone (PROVERA) 10 MG tablet Take 1 tablet By mouth daily from 26-30 of each monthfor 6 cycles. 30 Tablet 0 ??? mirabegron (MYRBETRIQ) 50 MG 24 hour release tablet Take 1 Tablet by mouth daily for 21 days. 21Tablet 0 ??? naltrexone (REVIA) 50 MG tablet Take 1 Tablet by mouth daily. Start with a half tab for the first 1-2 weeks 30 Tablet 0 ??? naproxen (NAPROSYN) 500 MG tablet 3 ??? tolterodine (DETROLLA) 4 MG 24 hour release capsule Take 1 Capsule by mouth daily. 30 Capsule 11 ??? Vitamin D, Ergocalciferol, 1.25 MG (15579 UT) CAPS 4 No facility-administered medications prior to visit. Objective: There are no preventive care reminders [...] Morbid obesity with BMI of 50.0-59.9, adult ([facility]) E66.01 Insulin, Serum (10Hr Fast Recommended) Z68.43 Hgb A1c Creatinine / GFR AST ALT (SGPT) Calcium Glucose Lipid Panel and Direct LDL(If Needed) TSH Vitamin D 25-Hydroxy, Total Vitamin B6 (8Hr Fast Recommended) Vitamin B1, Blood EGD US Abd RUQ Organs 2. Sleep apnea, unspecified type G47.30 3. Overactive bladder N32.81 4. Depression, unspecified depression type ([facility]) F32.9 The patient would like to pursue a surgical intervention for weight loss at this time. -We will perform labs to evaluate for obesity- associated comorbid issues. Labs as above -The patient does have signs of emotionally dysregulated food intake and /or eating disorder and will be referred to psychology for further evaluation of these symptoms. -Nutrition: Patient will be evaluated by the photovoltaic installer following this appointment. -Exercise: Patient will be referred to PT for additional assistance with developing a home exerciseregimen. -Medications: -Patient is currently taking the following medicaton with the potential side effect of weight loss:Naltrexone -Patient is currently taking the folllowing medications with the potential side effect for weight gain: Prozac -Potential future medications to trial for additional weight loss include the following: Wellbutrin/ naltrexone combination, GLP-1 (no Hx of pancreatitis, thyroid cancer), Metformin, Topiramate (no history of renal calculi,glaucoma), Phentermine. -The following weight-loss medications may not be recommended for this patient: none -RUQ ultrasound scan for evaluation of gallstones. Rational for concurrent cholecystectomy with bariatric surgery discussed. -discussed importance of adequate obstructive sleep apnea management with adherence to CPAP to reduce risk of hypertension, cardiovascular disease and improved weight loss journey. Directed back to sleep clinic for further guidance on mask fit / assistance with tolerability of CPAP. -discussed importance of contraception. She was strongly advised against while taking naltrexone and encourage to speak with her PCP about contraceptive options. Patient is an appropriate candidate for bariatric surgery from a medical standpoint and may continue surgical evaluation with the photovoltaic installer, psychologist, and physical therapist. However, the patient may have additional risk factors for surgery including emotionally dysregulated food intake, active depression. Total time spent with patient: more than 30 minutes This phone visit is a scheduled telephone visit. Disposition: follow up with me in 2 months. This visit was conducted via phone. The patient was in a safe place to conduct this visit. They werenot operating a motor vehicle at the time of this visit. Roxane Klein documented in this encounter Plan of Treatment Not on filedocumented as of this encounter Results Vitamin B1, Blood (08/16/2019 11:26 AM CDT) P athologist Signature Vitamin B1 82 70 - 180 08/19/2019 [employer] nmol/L 6:22 AM CDT Comment: INTERPRETIVE INFORMATION: Vitamin B1, Wh ole Blood This assay measures the concentration of thiamine diphosphate (TDP), the primary active form of vitami n B1. Approximately 90 percent of vitamin B1 present in whole b lood is TDP. Thiamine and thiamine monophosphate, which comprise t he remaining 10 percent, are not measured. Test developed and characteristics deter mined by [employer] [facility]. See Compliance Statement B : [email or web address] Performed By: [facility] [address] [place] [id number] Nutrition Director: Lilibeth Wick, MS Specimen Anatomical Collection Method / Collection Time Recei adama Time (Source) Location / Volume Laterality Blood Venipuncture / 08/16/2019 11:26 0 Unknown AM CDT 11:30 AM CDT Carrie Betts LAB_1 Performing Organization Address City/State/ZIP Code Phon e Number [employer] [address] [place] [address] [phone] Vitamin B6 (8Hr Fast Recommended) (08/16/2019 11:26 AM CDT) athologist Signature Vitamin B6 26.3 20.0 - 08/18/2019 [employer] 125.0 2:34 PM CDT nmol/L Comment: INTERPRETIVE INFORMATION: Vitamin B6 (Py ridoxal 5-Phosphate) Pyridoxal 5'-phosphate measured in a spe cimen collected following an 8-hour or overnight fast accurately i ndicates vitamin B6 nutritional status. Non-fasting specimen concentration reflects recent vitamin intake. Test developed and characteristics deter mined by [facility]. See Compliance Statement B : [employer] Performed By: [facility] [address] [place] [id number] Nutrition Director: Lilibeth Wick, MS Specimen Anatomical Collection Method / Collection Time Recei adama Time (Source) Location / Volume Laterality Blood Venipuncture / 08/16/2019 11:26 0 Unknown AM CDT 12:07 PM CDT Carrie Ascencio [facility] LAB_1 Performing Organization Address [facility] Phon e Number [employer] [address] [place] [address] [phone] (ABNORMAL) Vitamin D 25-Hydroxy, Total (08/16/2019 11:26 AM CDT) athologist Signature Vitamin D, 9 (L) 30 - 80 08/16/2019 [facility] 25-OH, Total ng/mL 3:53 PM CDT LABORATORY Specimen Anatomical Collection Method / Collection Time Recei adama Time (Source) Location / Volume Laterality Blood Venipuncture / 08/16/2019 11:26 0 Unknown AM CDT 11:30 AM CDT Narrative [facility] - 08/16/2019 3:53 P M CDT Expected values Deficiency: <20 ng/mL Insufficiency: 20-29 ng/mL Optimum: 30-80 ng/mL Possible toxicity: >80 ng/mL Carrie Ascencio [facility] LAB_1 Performing Organization Address City/State/ZIP Code Phon e Number [facility] [address] [place] [address] TSH (08/16/2019 11:26 AM CDT) athologist Signature TSH, Sensitive 1.53 0.30 - 08/16/2019 [facility] 4.50 3:53 PM CDT LABORATORY uIU/mL Specimen Anatomical Collection Method / Collection Time Recei adama Time (Source) Location / Volume Laterality Blood Venipuncture / 08/16/2019 11:26 0 Unknown AM CDT 11:30 AM CDT Carrie Ascencio [facility] LAB_1 Performing Organization Address [facility] Phon e Number [facility] [address] [place] [address] (ABNORMAL) Lipid Panel and Direct LDL(If Needed) (08/16/2019 11:26 AM CDT) [facility] Method Time Signature Cholesterol 211 (H) 0 - 199 08/16/2019 [facility] mg/dL 11:59 AM CDT LABORATORY Triglyceride 121 <=149 08/16/2019 [facility] mg/dL 11:59 AM CDT LABORATORY HDL Cholesterol 40 >=40 08/16/2019 [facility] mg/dL 11:59 AM CDT LABORATORY LDL, Calculated 147 (H) <130 08/16/2019 [facility] mg/dL 11:59 AM CDT LABORATORY Non HDL Chol, 171 mg/dL 08/16/2019 [facility] Calculated 11:59 AM CDT LABORATORY Cholesterol/HDL 5.3 08/16/2019 [facility] Ratio 11:59 AM CDT LABORATORY Hours Fasting 12 08/16/2019 [facility] 11:59 AM CDT LABORATORY Specimen Anatomical Collection Method / Collection Time Recei adama Time (Source) Location / Volume Laterality Blood Venipuncture / 08/16/2019 11:26 0 Unknown AM CDT 11:29 AM CDT Carrie Ascencio [facility] LAB_1 Performing Organization Address City/[facility]/ZIP Code Phon e Number [facility] [address] [place] [address] ALT (SGPT) (08/16/2019 11:26 AM CDT) athologist Signature ALT (SGPT) 35 0 - 55 U/L 08/16/2019 [facility] 11:59 AM CDT LABORATORY Specimen Anatomical Collection Method / Collection Time Recei adama Time (Source) Location / Volume Laterality Blood Venipuncture / 08/16/2019 11:26 0 Unknown AM CDT 11:29 AM CDT Carrie Ascencio [facility] LAB_1 Performing Organization Address [facility]/ZIP Code Phon e Number [facility] [address] [place] [address] AST (08/16/2019 11:26 AM CDT) athologist Signature AST (SGOT) 20 10 - 40 U/L 08/16/2019 [facility] 11:59 AM CDT LABORATORY Specimen Anatomical Collection Method / Collection Time Recei adama Time (Source) Location / Volume Laterality Blood Venipuncture / 08/16/2019 11:26 0 Unknown AM CDT 11:29 AM CDT Carrie Ascencio [facility] LAB_1 Performing Organization Address [facility] Phon e Number [facility] [address] [place] [address] Insulin, Serum (10Hr Fast Recommended) (08/16/2019 11:26 AM CDT) [facility] gist Method Time Signature Insulin, Serum 17.9 1.9 - 23.0 08/17/2019 [facility] uIU/mL 11:15 AM CDT [facility] Specimen Anatomical Collection Method / Collection Time Recei adama Time (Source) Location / Volume Laterality Blood Venipuncture / 08/16/2019 11:26 0 Unknown AM CDT 11:30 AM CDT Carrie Ascencio [facility] LAB_1 Performing Organization Address City/[facility]/ZIP Code Phon e Number [facility] [address] [address] [place] Abd RUQ Organs (06/27/2019 11:17 AM [...] Hepatic steatosis, otherwise unremarkable. Procedure Note Tommy Myesr MD - 06/27/2019Format ting of this note [...] IMPRESSION: Hepatic steatosis, otherwise unremarkable. Carrie Ascencio [facility] [place] documented in this encounter Visit Diagnoses Diagnosis Morbid obesity with BMI of 50.0-59.9, ad ult ([facility]) - Primary Sleep apnea, unspecified type Overactive bladder Hypertonicity of bladder Depression, unspecified depression type Morbid obesity with BMI of 50.0-59.9, ad ult ([facility]) documented in this encounter
--- OUTSIDE RECORDS SUMMARY | 2021-11-07 19:43 | XMS_ITS | Encounter Summary ---
:1980 Author Organization [facility] Address [address] [place] [address] Care Team Providers Name Role Phone Fadia Merchant M.D. Primary Care Provider Encounter Details Date Type Department Care Team Description 10/30/2021 Clinical Communication Department of Zacarias Rubi, [facility], [facility], in [place] [address] [place], [place] [address] [phone] Social History Tobacco Use Types Packs/Day Years Used Date Smoking Tobacco: Never Smokeless Tobacco: Never Sex Assigned at Date Recorded Not on file documented as of this encounter Miscellaneous Notes Telephone Encounter - Julieta Salmon L.P.N. - 11/03/2021 2:00 PM CDT Left message for patient to return call to clinic. Does the patient need to speak to nursing? no Action needed: Prescription for Victoza sent to [facility] from Dr. Sarabia Telephone Encounter - Esha Hoover L.P.N. - 10/30/2021 1:22 PM CDT Patient was reached to find out which medication she is inquiring about. She stated last month when she was seen, Dr. Sarabia had prescribed a weight loss injection. Pharmacy no longer had this medication on file. Patient is requesting this to be sent to [facility] in [place]. Telephone Encounter - Viktoria Card Grayson - 10/30/2021 12:36 PM CDT Reason for Communication: Patients calling in and stated that she never picked up the injection fromthe pharmacy, she went there and they no longer have the medication on file. Patient would like to know if she can get another script for the medication. Please advise. Current Can Nursing/Provider leave a detailed message?: no Did the patient refuse triage through Nurse line? (for symptom based concerns): na Action Needed: Please advise. Name of Medication (if relevant): na Please send all scheduling replies to scheduling pool. documented in this encounter Plan of Treatment Upcoming Encounters Date Type Specialty Care Team Description 11/09/2021 Office Visit Family Medicine Fadia Merchant M.D. [address] [place] [address] (Andrew ramirez) 11/10/2021 Office Visit Family Medicine Zacarias Sarabia M.B.B.S., M.D. [address] [place] [address] (Andrew ramirez) 11/11/2021 Comprehensive Visit Orthopedic Surgery Ivan Deng M.D. [address] [place], [place] [phone] (Andrew ramirez) documented as of this encounter Visit Diagnoses Diagnosis PreDiabetes - Primary Morbid Obesity Body Mass Index 50.0-59.9 Adult (HCC) Pain Knee Left - Primary documented in this encounter Additional Health Concerns Assessment Noted Time PHQ-9 Depression Total Score: 20 09/28/2021 4:18 PM CD T documented as of this encounter Care Teams Margin Trimmer Relationship Specialty Start Date End Date Fadia Merchant M.D. PCP - General Family Medicine 05/05/[address] [place] [address] [place] [phone] documented as of this encounter
--- OUTSIDE RECORDS SUMMARY | 2021-11-07 19:43 | XMS_ITS | Encounter Summary ---
:1980 Author [facility] Address [address] [place] [address] Care Team Providers Name Role Phone Unavailable Primary Care Provider Unavailable Reason for Referral Consult/Transfer Care (Routine) - Closed Specialty Diagnoses / Procedures Referred By Contact Refer red To Contact Diagnoses Irregular periods Secondary female infertility Thais Soto PA-C [address] [place] [address] Referral ID Status Reason Start Date Expiration Date Visits Requ ested Visits Authorized [id number] Closed 05/22/2018 08/21/2019 1 1 Scheduling Instructions Your provider has recommended an appoint ment with [facility]. You may call [phone] to schedule your appointment. If you do not schedule an appointment within the next 1 to 3 business days, we will call you to help arrange your appointment. We sugges t you call your health insurance company about your coverage and benefits for thi s appointment. Reason for Visit Reason Comments Annual Exam Encounter Details Date Type Department Care Team Description 05/22/2018 Office Visit Thais Jauregui, Well adult exam (Primary Dx) ; [address] Brennen Malone PA-C Irregular periods; [address] [place] [address] Maryjane Harper, unspecified type; [phone] [address] [place] [address] Cervical cancer screening; [phone] (Wo rk) Morbid obesity with BMI of 50.0-59.9, ad ult (HRC); Secondary female infertility Social History Tobacco Use Types Packs/Day Years [...] Sign Reading Time Taken Comments Blood Pressure 110/78 05/22/2018 9:46 AM CDT Pulse 76 05/22/2018 9:46 AM CDT Temperature - - Respiratory Rate - - Oxygen Saturation - - Inhaled Oxygen Concentration - - Weight 146.1 kg (322 lb) 05/22/2018 9:46 AM CDT Height 168.9 cm (5' 6.5) 05/22/2018 9:46 AM CDT Body Mass Index 51.19 05/22/2018 9:46 AM CDT documented in this encounter Progress Notes Thais Kuhn PA-C - 05/22/2018 9:40 AM CDT Preventive Exam SUBJECTIVE: 37 y.o. y/o patient presents for a routine preventive physical exam. Additional concerns: 1. Irregular periods and infertility. She and her has tried for two year to get . They have a 5 year old son with autism. She has gain 50 lbs since she has delivered her last baby 2. She notes she is tired all the time. She admits to not taking vitamin D like she is supposed to. Bell Spinner History: : No obstetric history on file. LMP: No LMP recorded. Pap hx: per pt- after she deliver her last baby at [place] (almost 5 years ago) Sexual History: Social History Substance and Sexual Activity Sexual Activity Yes ??? Partners: Male STD Hx: none no method Past Medical History: Diagnosis Date ??? Depression (emotion) (HRC) ??? Overactive bladder ??? Sleep apnea ??? Vitamin D deficiency (HRC) Past Surgical History: Procedure Laterality Date ??? APPENDECTOMY 2016 ??? SECTION 2014 Family History Problem Relation Age of Onset ??? Hypertension Father Social History Socioeconomic History ??? Marital status: Spouse name: Not on file ??? Number of children: Not on file ??? Years of education: Not on file ??? Highest education level: Not on file Occupational History ??? Not on file Social Needs ??? Financial resource strain: Not on file ??? Food insecurity: Worry: Not on file Inability: Not on file ??? Transportation needs: Medical: Not on file Non-medical: Not on file Tobacco Use ??? Smoking status: Never Smoker ??? Smokeless tobacco: Never Used Substance and Sexual Activity ??? Alcohol use: Never Frequency: Never ??? Drug use: Not on file ??? Sexual activity: Yes Partners: Male Lifestyle ??? Physical activity: Days per week: Not on file Minutes per session: Not on file ??? Stress: Not on file Relationships ??? Social connections: Talks on phone: Not on file Gets together: Not on file Attends buddhism service: Not on file Active member of club or organization: Not on file Attends meetings of clubs or organizations: Not on file Relationship status: Not on file ??? Intimate partner violence: Fear of current or ex partner: Not on file Emotionally abused: Not on file Physically abused: Not on file Forced sexual activity: Not on file Other Topics Concern ??? Not on file Social History Narrative ??? Not on file Adverse drug reactions: No Known Allergies Current Medications: No outpatient encounter medications on file as of 05/22/2018. No facility-administered encounter medications on file as of 05/22/2018. Review of Systems: With the exception of any items noted above, the remainder of complete ROS is negative. OBJECTIVE: BP 110/78 (BP Location: Left Arm, BP Cuff Size: Adult Large) Pulse 76 Ht 5' 6.5 (1.689 m) Wt (!) 322 lb (146.1 kg) BMI 51.19 kg/m?? General: Patient alert, in NAD. HEENT: PERRLA. Bilateral TM's, external canals, oropharynx normal. Neck: Supple, without thyromegaly or mass. Upper extremities: FROM with good strength, no lesions or deformities. CV: RRR without murmurs, rubs or gallops. Resp: Clear to auscultation without crackles, wheezes or distress. Abdomen: Soft, non-tender, without hepatosplenomegaly, masses, or hernias. Breasts: Nontender, without masses, nipple discharge, erythema, or axillary adenopathy. Pelvic: Normal external genitalia and urethra. [place], moist vaginal and cervical mucosa, without lesions. Lymphatic: No neck, supraclavicular, axillary or groin lymphadenopathy. Lower extremities: FROM, normal gait withoutedema, lesions, or deformity. Skin: No lesions. Neuro: CN II- XII, motor & sensory function all intact. Psychiatric: Alert & oriented with normal affect and insight, does not appear depressed oranxious. ASSESSMENT: Routine preventive exam. Past Medical History: Diagnosis Date ??? Depression (emotion) (HRC) ??? Overactive bladder ??? Sleep apnea ??? Vitamin D deficiency (HRC) PLAN: Follow-up in 1 year. Pending Labs: See orders Ordered Exams: none today medications refilled: No orders of the defined types were placed in this encounter. Patient was counseled about: breast self exam, mammography screening, family planning choices and adequate intake of calcium and vitamin D. [employer] consult placed to discuss secondary infertility and irregular periods. Recommend working on diet, exercise and weightloss. She knows she is vitamin D deficient. Recommend starting 2000mg daily in the am. Screening labs ordered. documented in this encounter Plan of Treatment Scheduled Referrals Name Type Priority Associated Diagnoses Order S [email or web address] Ob-Pot Maker Consult Referral Routine Irregular period s Ordered: 05/22/2018 Secondary female infertility documented as of this encounter Procedures Procedure Name Priority Date/Time Associated Diagnosis Comme nts HPV WITH 16 18 Routine 05/22/2018 11:02 AM Cervical cancer Res ults for this GENOTYPING, CDT screening procedure are i n CERVICAL/ENDOCERVIC the resu lts AL section. PAP TEST Routine 05/21/2018 10:31 AM Cervical cancer Resul ts for this CDT screening procedure are i n the results section. documented in this encounter Results HPV with 16 18 Genotyping (05/22/2018 11:02 AM CDT) [facility] Method Time Signature HPV High Risk Not Detected Not detected 05/29/2018 [facility] Type 16 PCR 2:16 PM CDT LABORATORY Comment: F;NONE HPV High Risk Not Detected Not Detected 05/29/2018 2:16 PM [facility] Type 18 PCR CDT Comment: F;NONE HPV High Risk Not Detected Not detected 05/29/2018 2:16 PM [facility] Other Than CDT 16 Comment: F;NONE Specimen Anatomical Collection Method Collection Time Receive d Time (Source) Location / / Volume Laterality Cervical Broom ENTIRE ENDOCERVIX Non-blood 05/22/2018 11:02 05/08 / Unknown Collection / AM CDT 11:02 AM CDT Unknown Narrative [facility] - 05/29/2018 2:16 P M CDT The Wanda HPV test is a qualitative in vitro test for the detection of Human Papillomavirus in [facility] patient specimens. The test utilizes amplification of target DNA by Polymerase Chain Reaction (PCR ) and nucleic acid hybridization for the detection of 14 high-risk (HR) HPV types. The assay tests for high risk types (16, 18, 31, 33, 35, 39, 45, 51, 52, 56, 58, 59, 66, and 68). NOTE: This test was developed and its pe rformance characteristics determined by [facility]. It has not been cleared or approved by the FDA. The laboratory ??is required under CLIA as qualified to perform high-complexity hannah ting. This test is used for clinical purposes. It should not be regarded as investigational or for research. The Wanda HPV test is a qualitative in v itro test for the detection of Human Papillomavirus in [facility] patient specimens. The test utilizes amplification of target DNA by Polymerase Chain Reaction (PCR ) and nucleic acid hybridization for the detection of 14 high-risk (HR) HPV types. The assay tests for high risk types (16, 18, 31, 33, 35, 39, 45, 51, 52, 56, 58, 59, 66, and 68). Thais Soto PA-C LAB_1 Performing Organization Address City/State/ZIP Code Phon e Number [facility] [address] [place] [address] (ABNORMAL) Vitamin D 25-Hydroxy (In house) (05/22/2018 10:45 AM CDT) athologist Signature Vitamin D, 9 (L) 30 - 80 05/23/2018 [facility] 25-OH, Total ng/mL 12:09 AM CDT LABORATORY Specimen Anatomical Collection Method / Collection Time Recei adama Time (Source) Location / Volume Laterality Blood Venipuncture / 05/22/2018 10:45 9 Unknown AM CDT 10:45 AM CDT Narrative [facility] - 05/23/2018 12:09 AM CDT Expected values Deficiency: <20 ng/mL Insufficient: 20-29 ng/mL Optimum: 30-80 ng/mL Possible toxicity: >80 ng/mL Thais Soto PA-C LAB_1 Performing Organization Address [facility] Phon e Number [facility] [address] [place] [address] TSH with Free T4 (if TSH Abnormal) (05/22/2018 10:45 AM CDT) P athologist Signature TSH, Reflex 1.58 0.30 - 4.50 05/22/2018 [facility] uIU/mL 5:21 PM CDT LABORATORY Specimen Anatomical Collection Method / Collection Time Recei adama Time (Source) Location / Volume Laterality Blood Venipuncture / 05/22/2018 10:45 9 Unknown AM CDT 10:45 AM CDT [facility] - 05/22/2018 5:21 P M CDT Lab will automatically reflex to Free T4 when TSH results are <0.30 uIU/mL or >4.50 mIU/mL. Thais Soto PA-C LAB_1 Performing Organization Address [facility] Phon e Number [facility] [address] [place] [address] (ABNORMAL) Hemoglobin A1C Glycosylated (05/22/2018 10:45 AM CDT) Analysis Performed At Patho logist Time Signature Hemoglobin A1C 5.8 (H) <=5.6 % 05/22/2018 [facility] 11:42 PM CDT LABORATORY Specimen Anatomical Collection Method / Collection Time Recei adama Time (Source) Location / Volume Laterality Blood Venipuncture / 05/22/2018 10:45 9 Unknown AM CDT 10:45 AM CDT [facility] - 05/22/2018 11:42 PM CDT For patients not previously diagnosed with diabetes: 5.7-6.4%: Increased risk for diabetes 6.5% and greater: Diagnostic for diabete s For patients diagnosed with diabetes: <8.0%: Goal of therapy for ages 18-75 Clinicians may recommend a higher or low er goal for specific individuals. Thais Soto PA-C LAB_1 Performing Organization Address City/State/ZIP Code Phon e Number [facility] [address] [place] [address] (ABNORMAL) Glucose (05/22/2018 10:45 AM CDT) P athologist Signature Glucose 121 (H) 70 - 100 05/22/2018 [facility] mg/dL 5:12 PM CDT LABORATORY Specimen Anatomical Collection Method / Collection Time Recei adama Time (Source) Location / Volume Laterality Blood Venipuncture / 05/22/2018 10:45 9 Unknown AM CDT 10:45 AM CDT Thais Soto PA-C LAB_1 Performing Organization Address City/State/[facility] Code Phon e Number [facility] [address] [place] [address] (ABNORMAL) Lipid Panel - LDLD If Trig High (05/22/2018 10:45 AM CDT) Patholo gist Method Time Signature Cholesterol 198 0 - 199 05/22/2018 [facility] mg/dL 5:12 PM CDT LABORATORY Triglyceride 157 (H) <=149 05/22/2018 [facility] mg/dL 5:12 PM CDT LABORATORY HDL Cholesterol 44 >=40 05/22/2018 [facility] mg/dL 5:12 PM CDT LABORATORY LDL, Calculated 123 <130 05/22/2018 [facility] mg/dL 5:12 PM CDT LABORATORY Non HDL Chol, 154 <=159 05/22/2018 [facility] Calculated mg/dL 5:12 PM CDT LABORATORY Cholesterol/HDL 4.5 05/22/2018 [facility] Ratio 5:12 PM CDT LABORATORY Specimen Anatomical Collection Method / Collection Time Recei adama Time (Source) Location / Volume Laterality Blood Venipuncture / 05/22/2018 10:45 9 Unknown AM CDT 10:45 AM CDT Thais J Soto PA-C LAB_1 Performing Organization Address City/State/ZIP Code Phon e Number [facility] [address] [place] [address] PAP Test (05/21/2018 10:31 AM CDT) Component Value Ref Test Analysis Performed At [facility] Range Method Time Signature Case Report Pap ? Case: [id number] ? 05/26/2018 [facility] Authorizing Provider: ??Thais Kuhn PA-C ? Collected: ? 05/21/2018 10:31 AM ? 2:13 PM LABORATOR Y Ordering Location: ? [facility] ?Received: ?05/22/2018 10:39 AM ? CDT First Screen: ? Rose Vega, CT ? (ASCP) ? Specimen: ?Pap Test, Rou noah, Cervix/Endocervix ? Pap Specimen Satisfactory for 05/26/2018 [facility] Adequacy evaluation, 2:13 PM LABORATORY endocervical/corona CDT sformation zone component absent. Pap Negative for 05/26/2018 [facility] Electr onically Interpretation intraepithelial 2:13 PM LABORATOR Y signed by lesion or CDT Barb Card malignancy D, CT ( CP) on (NILM). 05/26/2018 at 2:12 PM Gross The specimen is 05/26/2018 [facility] Description received in 2:13 PM LABORATORY [facility] fixative CDT and properly labeled. 1 Pap-stained [facility] slide is prepared. Pap Disclaimer The Pap test is a 05/26/2018 METHOD IST screening test 2:13 PM LABORATORY designed to aid CDT in the detection of cervical cancer and its precursor lesions. It is not a diagnostic procedure and should not be used as the sole means of detecting cervical cancer. Both false-positive and false-negative reports may occur. Embedded Images 05/26/2018 [facility] 2:13 PM LABORATORY CDT Specimen Anatomical Collection Method Collection Time Receive d Time (Source) Location / / Volume Laterality Other Specimen ENTIRE ENDOCERVIX 05/21/2018 10:31 05/08 Type / Unknown AM CDT 10:39 AM CDT Comment: LMP: No LMP recorded. Thais Soto PA-C LAB PATHOLOGY Performing Organization Address City/State/ZIP Code Phon e Number [facility] [address] [place] [address] documented in this encounter Visit Diagnoses Diagnosis Well adult exam - Primary Routine general medical examination at a health care facility Irregular periods Irregular menstrual cycle Fatigue, unspecified type Cervical cancer screening Screening for malignant neoplasm of the cervix Morbid obesity with BMI of 50.0-59.9, ad ult (HRC) Secondary female infertility Female infertility of unspecified origin documented in this encounter
--- OUTSIDE RECORDS SUMMARY | 2021-11-07 19:43 | XMS_ITS | Encounter Summary ---
:1980 Author Organization [facility] Address [address] [place] [address] Care Team Providers Name Role Phone Unavailable Primary Care Provider Unavailable Reason for Visit Reason Comments Medication Questions Encounter Details Date Type Department Care Team Description 05/31/2018 Telephone Thais Jauregui, Medication Questions [address] Gleason PA-C [address] [address] [phone] MARIBETH CONTRERAS [id number] (Wo rk) Social History Tobacco Use Types [...] documented as of this encounter Nursing Notes Debra Lantigua RN - 05/31/2018 10:44 AM CDT Spoke with patient, advised of recommendation per lab result letter dated 1999iu daily. She verbalized understanding, no further needs at this time. Ernesto Wilson - 05/31/2018 10:18 AM CDT Miscellaneous Questions & FYI's - Question/Concern (DO NOT use for billing and coding concerns see BEST care reporting system) What is your question or concern? Pt was advised to take one tablet of Vitamin D at OV. Pt states that the OTC bottle says to take 2 tablets. Please advise. Is it okay to leave a detailed [...]
--- OUTSIDE RECORDS SUMMARY | 2021-11-07 19:43 | XMS_ITS | Encounter Summary ---
:1980 Author Organization [employer] Address [address] [place] [address] Care Team Providers Name Role Phone Unavailable Primary Care Provider Unavailable Reason for Visit Reason Comments Medication Questions Encounter Details Date Type Department Care Team Description 07/05/2018 Telephone [facility] Zachary Wilson MD Medication Questions Services-[facility] [address] [facility] [id number] [place] [address] [address] [place] [address] [place], [place] [phone] (Wo rk) [address] [phone] Social History Tobacco Use Types Packs/Day Years [...] encounter Nursing Notes Rebeca Moran RN - 07/05/2018 12:47 PM CDT Pt was seen in clinic on 06/08 for infertility and irregular periods. She was prescribed provera to induce a period x 3 cycles. Pt states she did not take the provera this month because she had a period.Advised next month if no period to take the medication and if HPT test negative. Also discussed withpt using the ovulation predictor kit on day 10 of her cycle. Questions answered to pts full understanding. No further questions or concerns documented in this encounter Plan of Treatment Not on filedocumented as of this encounter Visit Diagnoses Not on filedocumented in this encounter
--- OUTSIDE RECORDS SUMMARY | 2021-11-07 19:43 | XMS_ITS | Encounter Summary ---
:1980 Author Organization [facility] Address [address] [place] [address] Care Team Providers Name Role Phone Unavailable Primary Care Provider Unavailable Reason for Visit (Routine) - Incomplete Specialty Diagnoses / Procedures Referred By Contact Refer red To Contact Procedures Provider, Foreign Images Foreign Image(s) MR L-Spine [address] [place] [address] Referral ID Status Reason Start Date Expiration Date Visits V isits Requested Authorized [id number] Incomplete 11/26/2019 02/24/2021 1 1 Encounter Details Date Type Department Care Team Description 02/06/2014 Ancillary Procedure [facility] Radiology PACS Provider, [place] [address] [address] [place] [address] Social History Tobacco Use Types Packs/Day Years Used Date Smoking Tobacco: Never Assessed Alcohol Habits Answer Date Recorded How often [...] Name Priority Date/Time Associated Diagnosis Comme nts FOREIGN IMAGE(S) MR Routine 02/06/2014 12:40 PM R esults for this L-SPINE WO IV CONT LOOPER OPERATOR procedure are in the results section. documented in this encounter Results Foreign Image(s) MR L-Spine WO IV Cont (02/06/2014 12:40 PM LOOPER OPERATOR) Specimen (Source) Anatomical Location Collection Method / Collectio n Time Received Time / Laterality Volume Narrative POCT - 11/26/2019 12:37 PM CDT These outside images have been uploaded into PACS. If the results were provided, they will be located in the pa tient's chart under the Media or Imaging tab. Foreign Images Provider RAD NON-REPORTABLES Performing Organization Address City/State/ZIP Code Phon e Number POCT documented in this encounter Visit Diagnoses Not on filedocumented in this encounter
--- OUTSIDE RECORDS SUMMARY | 2021-11-07 19:43 | XMS_ITS | Encounter Summary ---
:1980 Author Organization [facility] Address [address] [place] [address] Care Team Providers Name Role Phone Fadia Merchant M.D. Primary Care Provider Encounter Details Date Type Department Care Team Description 08/25/2021 Hospital Encounter Department of Laboratory Zacarias Sarabia I., Neuropathy Medicine in [place]. [place] [address] [facility] [address] [place], [place] [phone] (Wo rk) Social History Tobacco Use Types Packs/Day Years Used Date Smoking Tobacco: Never Smokeless Tobacco: Never Sex Assigned at Date Recorded Not on file documented as of this encounter Medications at Time of Discharge Medication Sig Dispensed Refills Start Date End Date acetaminophen (TYLENOL) 0 04/02/2021 500 mg tablet ergocalciferol (DRISDOL) Take 1 capsule 8 capsule 0 022 50,000 Unit capsule (50,000 Units total) by mouth once a week. FLUoxetine (PROzac) 40 mg Take 2 capsules (80 60 capsule 2 0 08/25/2021 11/23/2021 capsuleIndications: mg total) by mouth Depression Major Single daily. Episode Severe Without Psychotic Features (HCC) traZODone (DESYREL) 100 Take 1 tablet (100 30 tablet 2 08/0711/23/2021 mg tabletIndications: mg total) by mouth Depression Major Single at bedtime. Episode Severe Without Psychotic Features (HCC) liraglutide (Victoza Inject 0.6 mg under 6.3 mL 0 202110/06/2021 2-Андрей) 0.6 mg/0.1 mL (18 the skin daily for mg/3 mL) 7 days, THEN 1.2 mg injectionIndications: daily for 28 days. PreDiabetes, Morbid Obesity Body Mass Index 50.0-59.9 Adult (HCC) documented as of this encounter Miscellaneous Notes Result Encounter Note - Zacarias Sarabia M.B.B.S., M.D. - 08/28/2021 6:07 PM CDT Results showed no significant abnormalities. documented in this encounter Plan of Treatment Upcoming Encounters Date Type Specialty Care Team Description 11/09/2021 Office Visit Family Medicine Fadia Merchant M.D. [address] [place] [phone] (Wo rk) 11/10/2021 Office Visit Family Medicine Zacarias Sarabia M.B.B.S., M.D. [address] [place] [address] (Wo rk) 11/11/2021 Comprehensive Visit Orthopedic Surgery Ivan Deng M.D. [address] [phone] (Wo rk) documented as of this encounter Procedures Procedure Name Priority Date/Time Associated Diagnosis Comme nts FOLATE, S Routine 08/25/2021 5:13 PM Neuropathy Results f or this CDT procedure are i n the results section. VITAMIN B12 ASSAY, Routine 08/25/2021 5:13 PM Neuropathy Res ults for this S CDT procedure are i n the results section. documented in this encounter Results Folate (08/25/2021 5:13 PM CDT) athologist Signature Folate, S 5.1 >=4.0 mcg/L 08/25/2021 [facility] 10:38 PM CDT Comment: Biotin has been identified by the [facility] as a potential interfering substance. Higher concentrations of biotin may be found in multivitamins, betancourt ir/nail supplements, and workout supplements. If the result d oes not match clinical observations, repeat testing af ter patient refrains from the use of supplements for at least 12 hours. Specimen Anatomical Collection Method Collection Time Receive d Time (Source) Location / / Volume Laterality Blood (Blood, 08/25/2021 5:13 PM 08/26/19 Venous) CDT 10:06 PM CDT Zacarias Pena M.D. LAB BLOOD ADD-ON Performing Organization Address City/[facility] Phon e Number [facility]- [address] [place] [address] [facility] - [address] Vitamin B12 Assay (08/25/2021 5:13 PM CDT) athologist Signature Vitamin B12 [phone] 08/25/2021 AUST Assay, S ng/L 10:38 PM CDT Comment: Biotin has been identified by the lucy banegas as a potential interfering substance. Higher concentrations of biotin may be found in multivitamins, betancourt ir/nail supplements, and workout supplements. If the result d oes not match clinical observations, repeat testing af ter patient refrains from the use of supplements for at least 12 hours. Specimen Anatomical Collection Method Collection Time Receive d Time (Source) Location / / Volume Laterality Blood (Blood, 08/25/2021 5:13 PM 08/26/19 22 Venous) CDT 10:06 PM CDT Zacarias Pena M.D. LAB BLOOD ADD-ON Performing Organization Address City/[facility] Phon e Number [facility]- [address] [place] [address] [facility] - [address] documented in this encounter Visit Diagnoses Diagnosis Neuropathy Pain Knee Left - Primary documented in this encounter Additional Health Concerns Assessment Noted Time PHQ-9 Depression Total Score: 20 08/25/2021 3:59 PM CD T documented as of this encounter Care Teams Bale Breaker Operator Relationship Specialty Start Date End Date Fadia Merchant M.D. PCP - General Family Medicine 05/05/[address] [place] [address] [place] [address] documented as of this encounter
--- OUTSIDE RECORDS SUMMARY | 2021-11-07 19:43 | XMS_ITS | Encounter Summary ---
:1980 Author Organization [facility] Address [address] [place] [address] Care Team Providers Name Role Phone Fadia Merchant M.D. Primary Care Provider Reason for Referral Specialty Diagnoses / Procedures Referred By Contact Refer red To Contact Fadia Merchant M.D . [facility] [address] [place] [address] Referral ID Status Reason Start Date Expiration Date Visits Requ ested Visits Authorized Encounter Details Date Type Department Care Team Description 10/26/2021 Orders Only [facility] Daniela Merchnat M.D. [address] [place], [place] [phone] (Wo rk) Social History Tobacco Use Types Packs/Day Years Used Date Smoking Tobacco: Never Smokeless Tobacco: Never Sex Assigned at Date Recorded Not on file documented as of this encounter Plan of Treatment Upcoming Encounters Date Type Specialty Care Team Description 11/09/2021 Office Visit Family Medicine Fadia Merchant M.D. [address] [place] [address] (Wo rk) 11/10/2021 Office Visit Family Medicine Zacarias Sarabia M.B.B.S., M.D. [address] [place] [address] (Wo rk) 11/11/2021 Comprehensive Visit Orthopedic Surgery Ivan Deng M.D. [address] [place], [place] [phone] (Wo rk) Scheduled Referrals Name Type Priority Associated Order Schedule Diagnoses Covid immunization Outpatient Referral Routine Ex pected: office visit 10/26/2021 Immuno/Booster (Approximate) , Expires: 10/26/2022 documented as of this encounter Visit Diagnoses Not on filedocumented in this encounter Additional Health Concerns Assessment Noted Time PHQ-9 Depression Total Score: 20 09/28/2021 4:18 PM CD T documented as of this encounter Care Teams Supervisor Scrap Preparation Relationship Specialty Start Date End Date Fadia Merchant M.D. PCP - General Family Medicine 05/05/[address] [place] [phone] documented as of this encounter
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
--- OUTSIDE RECORDS SUMMARY | 2021-11-07 19:43 | XMS_ITS | Encounter Summary ---
:1980 Author Organization [facility] Address [address] [place] [address] Care Team Providers Name Role Phone Fadia Merchant M.D. Primary Care Provider Encounter Details Date Type Department Care Team Description 08/13/2021 Orders Only Pharmacy Prior Auth RO HarmonPhyllis molina [phone] Social History Tobacco Use Types Packs/Day Years Used Date Smoking Tobacco: Never Smokeless Tobacco: Never Sex Assigned at Date Recorded Not on file documented as of this encounter Plan of Treatment Upcoming Encounters Date Type Specialty Care Team Description 11/09/2021 Office Visit Family Medicine Fadia Merchant M.D. [address] [place] [address] (Andrew ramirez) 11/10/2021 Office Visit Family Medicine Zacarias Sarabia M.B.B.S., M.D. [address] [place] [address] (Andrew ramirez) 11/11/2021 Comprehensive Visit Orthopedic Surgery Ivan Deng M.D. [address] [place], [place] [phone] (Andrew ramirez) documented as of this encounter Visit Diagnoses Not on filedocumented in this encounter Additional Health Concerns Assessment Noted Time PHQ-9 Depression Total Score: 17 07/29/2021 9:47 AM CD T documented as of this encounter Care Teams Literacy Education Professor Relationship Specialty Start Date End Date Fadia Merchant M.D. PCP - General Family Medicine 05/05/[address] [place] [address] [place] [phone] documented as of this encounter
--- OUTSIDE RECORDS SUMMARY | 2021-11-07 19:43 | XMS_ITS | Encounter Summary ---
:1980 Author Organization [facility] Address [address] [place] [address] Care Team Providers Name Role Phone Unavailable Primary Care Provider Unavailable Encounter Details Date Type Department Care Team Description 05/21/2018 Hospital Encounter [facility] Thais Soto, [address] [place], [place] [address] [address] [place] [address] [phone] (Wo rk) Social History Tobacco Use Types [...]
--- OUTSIDE RECORDS SUMMARY | 2021-11-07 19:43 | XMS_ITS | Encounter Summary ---
:1980 Author Organization Replaced by [facility] Address [address] [place] [address] Care Team Providers Name Role Phone Unavailable Primary Care Provider Unavailable Reason for Referral Consult/Transfer Care (Routine) - Closed Specialty Diagnoses / Procedures Referred By Contact Refer red To Contact Diagnoses Other urinary incontinence Thais Soto PA-C [address] [place] [address] Referral ID Status Reason Start Date Expiration Date Visits Requ ested Visits Authorized [id number] Closed 07/10/2018 10/09/2019 1 1 Scheduling Instructions Your provider has recommended an appoint ment with [facility]. You may call [phone] to schedule your appointmen t. If you do not schedule an appointment within the next 1 to 3 business days, we will call you to help arrange your appointment. We suggest you call your [employer] insurance company about your coverage and benefits for this appointment. Reason for Visit Reason Comments Incontinence Encounter Details Date Type Department Care Team Description 07/10/2018 Office Visit Sidra Castro e Thais Soto, Other urinary incontinence ( Primary Dx); [address] Brennen Malone PA-C Nocturia [place] [address] [address] [phone] [place] [id number] Social History Tobacco Use Types Packs/Day Years [...] Sign Reading Time Taken Comments Blood Pressure 126/70 07/10/2018 10:18 AM CDT Pulse 100 07/10/2018 10:18 AM CDT Temperature - - Respiratory Rate - - Oxygen Saturation - - Inhaled Oxygen Concentration - - Weight 146.5 kg (323 lb) 07/10/2018 10:18 AM CDT Height 167.6 cm (5' 6) 07/10/2018 10:18 AM CDT Body Mass Index 52.13 07/10/2018 10:18 AM CDT documented in this encounter Progress Notes Thais Kuhn PA-C - 07/10/2018 12:00 PM CDT NAME: NARINDER LUCAS MR#: [id number] CSN: [id number] AUTHENTICATING CLINICIAN: ALLY Frye CONFIRM #: [id number] LOC: 1706 CLINIC PROGRESS NOTE DATE OF VISIT: 07/10/2018 : 1980 SUBJECTIVE: This is a pleasant 37-year-old female who presents today to discuss incontinence issues. She states this has been an issue since childhood. She remembers being about 15 or 16 [place] She has had persistent issues since which have worsened. She states every night for the last6 nights, she has wet the bed. She complains of a very large area of urine that she wakes up in every morning. She states that it is a huge mess to clean up every morning. She states it is very time consuming. She also leaks urine about 1 time during the day. She states she has talked to a urologistabout it in the past. They told her that she has an overactive bladder and that she needs to strengthen her bladder. They gave her oxybutynin, but it did not help. She begins to cry during the appointment today as she states it is so embarrassing. She would like to go back home to [facility] to visit her family, but she states she is too embarrassed to do so. She denies dysuria. She denies hematuria. No back pain, fevers, or chills. She has no structural, kidney or bladder problems that she knows of. She denies a family history of any bladder issues. MEDICATIONS: Reviewed in [facility]. ALLERGIES: Reviewed in [facility]. OBJECTIVE: VITALS: Reviewed in [facility]. GENERAL IMPRESSION: This is a pleasant female resting quietly in no acute distress. HEENT: Oropharynx is clear. HEART: Regular rate and rhythm. No murmurs, rubs, or gallops. LUNGS: Clear to auscultation bilaterally. ABDOMEN: Soft and nontender. No organomegaly. EXTREMITIES: No rash or edema. ASSESSMENT: 1.Incontinence. 2.Nocturia. PLAN: Support provided to her today as she is very embarrassed about this and cries throughout the appointment. We did check a urinalysis today which looks to be completely normal. I did recommend further investigation. She may need some sort of imaging done, but will leave this up to Urology. Urology consult placed. I did give her a printed prescription for adult nighttime diapers to wear and as part of her issue is the time consuming embarrassing process of cleaning her sheets and clothes every morning.She is also embarrassed that her house is starting to smell like pee. I think this is a very real and troublesome issue for her. She may be a candidate for additional imaging and possible surgical exploration. She has only had 1 child, which was a delivery. She has not had any vaginal deliveries. All of her questions have been answered. She will call to schedule her urology appointment. MARY:PHU C: CONFIRM #: [id number] Thais Kuhn PA-C - 07/10/2018 9:40 AM CDT This note has been dictated documented in this encounter Plan of Treatment Scheduled Referrals Name Type Priority Associated Diagnoses Order S chedule Urology Referral Routine Other urinary incontinence O rdered: 07/10/2018 Consult-Adults documented as of this encounter Results Urinalysis Routine, Micro/Culture if Pos (07/10/2018 10:00 AM CDT) [facility] Method Time Signature Urine Color Yellow Straw-Yellow 07/10/2018 [facility] 10:10 AM CDT LABORATORY (PN) Urine Clarity Clear Clear 07/10/2018 [facility] 10:10 AM CDT LABORATORY (PN) Specific 1.020 1.005 - 07/10/2018 [facility] [place], 1.030 10:10 AM CDT LABORATORY Urine (PN) [...] Code Phon e Number [facility] (PN) [address] [place] [address] [phone] documented in this encounter Visit Diagnoses Diagnosis Other urinary incontinence - Primary Nocturia documented in this encounter
--- OUTSIDE RECORDS SUMMARY | 2021-11-07 19:43 | XMS_ITS | Encounter Summary ---
:1980 Author Organization [facility] Address [address] [place] [address] Care Team Providers Name Role Phone Fadia Merchant M.D. Primary Care Provider Reason for Visit Reason Comments ED follow up Encounter Details Date Type Department Care Team Description 10/19/2021 Clinical Communication Department of [facility] Kalyn Merchant, ED follow up Medicine, [place] [facility], in [address] [address] [place], [place] [phone] (Work) [phone] Social History Tobacco Use Types Packs/Day Years Used Date Smoking Tobacco: Never Smokeless Tobacco: Never Sex Assigned at Date Recorded Not on file documented as of this encounter Miscellaneous Notes Telephone Encounter - Gina Mosley P.A.-C. - 10/21/2021 7:53 AM CDT I could see at 830 on 11/04. Could the 11am spot be blocked for extra time with this patient? Telephone Encounter - Charley Márquez R.N. - 10/20/2021 4:27 PM CDT Called patient and discussed follow up recommendations provided by Dr. Deng. Patient prefers tofollow up with Orthopedics and would prefer to be seen in [place]. Discussed continuing with conservative care and a message will be sent to Gina Mosley P.A.-C. for appointment options. Telephone Encounter - Gerry Deng M.D. - 10/20/2021 2:09 PM CDT X-rays negative. He can follow up with primary care physician or [facility]. Telephone Encounter - Charley Márquez R.N. - 10/20/2021 8:34 AM CDT [facility] and requested left knee images be pushed to [facility]. Telephone Encounter - Meche Farmer - 10/19/2021 4:39 PM CDT Patient was seen in the Emergency Department last week for leg pain. The emergency room provider advised she follow up with orthopedics. Please advise. Thank you. documented in this encounter Plan of Treatment Upcoming Encounters Date Type Specialty Care Team Description 11/09/2021 Office Visit Family Medicine Fadia Merchant M.D. [address] [place] [phone] (Wo rk) 11/10/2021 Office Visit Family Medicine Zacarias Sarabia M.B.B.S., M.D. [address] [place] [phone] (Wo rk) 11/11/2021 Comprehensive Visit Orthopedic Surgery Ivan Deng M.D. [address] [place], [place] [phone] (Wo rk) documented as of this encounter Visit Diagnoses Not on filedocumented in this encounter Additional Health Concerns Assessment Noted Time PHQ-9 Depression Total Score: 20 09/28/2021 4:18 PM CD T documented as of this encounter Care Teams Front Office Attendant Relationship Specialty Start Date End Date Fadia Merchant M.D. PCP - General Family Medicine 05/05/[address] [place] [address] [place] [phone] documented as of this encounter
--- OUTSIDE RECORDS SUMMARY | 2021-11-07 19:43 | XMS_ITS | Encounter Summary ---
:1980 Author Organization [facility] Address [address] [place] [address] Care Team Providers Name Role Phone Fadia Merchant M.D. Primary Care Provider Encounter Details Date Type Department Care Team Description 09/10/2021 Clinical Communication Department of Kalyn Becker, Medicine, [place] [facility], in [address] [address] [place], [place] [phone] [address] (Work) [phone] Social History Tobacco Use Types Packs/Day Years Used Date Smoking Tobacco: Never Smokeless Tobacco: Never Sex Assigned at Date Recorded Not on file documented as of this encounter Miscellaneous Notes Telephone Encounter - Eugene Ware - 09/10/2021 2:58 PM CDT Reason for Communication: Patient calling in she is not feeling very well today and is not able to make it to her appt today with Marsha Hammer. I was unable to get Marsha's schedule to pull up for [place]. Patient is hoping she can get this appt rescheduled for a Tuesday or Tuesday. Please call patient back. Current Can Nursing/Provider leave a detailed message?: Did the patient refuse triage through Nurse line? (for symptom based concerns): Action Needed: Please call patient back to help reschedule this appt Name of Medication (if relevant): Please send all scheduling replies to scheduling pool. documented in this encounter Plan of Treatment Upcoming Encounters Date Type Specialty Care Team Description 11/09/2021 Office Visit Family Medicine Fadia Merchant M.D. [address] [place] [phone] (Wo rk) 11/10/2021 Office Visit Family Medicine Zacarias Sarabia M.B.B.S., M.D. [address] [place] [phone] (Wo rk) 11/11/2021 Comprehensive Visit Orthopedic Surgery Ivan Deng M.D. [address] [place], [place] [phone] (Wo rk) documented as of this encounter Visit Diagnoses Not on filedocumented in this encounter Additional Health Concerns Assessment Noted Time PHQ-9 Depression Total Score: 20 08/25/2021 3:59 PM CD T documented as of this encounter Care Teams Instructor Physical Relationship Specialty Start Date End Date Fadia Merchant M.D. PCP - General Family Medicine 05/05/21 [address] [place] [phone] documented as of this encounter
--- OUTSIDE RECORDS SUMMARY | 2021-11-07 19:43 | XMS_ITS | Encounter Summary ---
:1980 Author Organization [facility] Address [address] [place] [address] Care Team Providers Name Role Phone Unavailable Primary Care Provider Unavailable Reason for Visit Reason Comments CONSULT irreg menses Consult/Transfer Care (Routine) - Closed Specialty Diagnoses / Procedures Referred By Contact Refer red To Contact Diagnoses Irregular periods Secondary female infertility Thais Soto, PAFabioC [address] [place] [address] Referral ID Status Reason Start Date Expiration Date Visits Requ ested Visits Authorized [id number] Closed 05/22/2018 08/21/2019 1 1 Encounter Details Date Type Department Care Team Description 06/08/2018 Office Visit [facility] Wilsona, Insu jazmin resistance syndrome (Primary Dx); 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 Female infertility associated with anovu lation; [address], [address] Chiquita RAYA (polycystic ovarian syndrome); [address] [address] Oligomenorrhea, unspecified type; [place], [place] Obesity, un specified classification, unspecified obesity type, unspecified whether serious comorbidity present [id number] [phone] (Wo rk) Social History Tobacco Use Types [...] Sign Reading Time Taken Comments Blood Pressure 117/64 06/08/2018 9:56 AM CDT Pulse 89 06/08/2018 9:56 AM CDT Temperature - - Respiratory Rate - - Oxygen Saturation - - Inhaled Oxygen Concentration - - Weight 147.2 kg (324 lb 8 oz) 06/08/2018 9:56 AM CDT Height 168.9 cm (5' 6.5) 06/08/2018 9:56 AM CDT Body Mass Index 51.59 06/08/2018 9:56 AM CDT documented in this encounter Progress Notes Gabriela Wilson MD - 06/08/2018 9:45 AM CDT Chief complaint: Patient is 37-year-old female who is in office today to discuss multiple issues. Firstly patient has been having irregular periods coming anywhere between 35-45 days. Patient and have been trying to have another baby for the last 2 years without any success. Patient had ac section 5 years ago. Her child has autism. Patient also reports having gained over 50 lb in the last 1 and half years. Patient's lifestyle is very sedentary and also her dietary habits are erratic and carbohydrate heavy. Patient knows that she needs to get on exercise plan and calorie restricted diet to lose weight but she has not been able to do so. Patient also feels that she has depression issues. She also has low vitamin-D levels which she in replacement as prescribed by her PCP. She had some labs done with a PCP and namely TSH and hemoglobin A1c. Her TSH was normal limits vitamin-D levels were low and hemoglobin A1c was high so patient was told she is prediabetic and told to make changes in her diet which she has not yet done. Her Pap smear was negative. Patient was told about the various reasons for her oligomenorrhea which could be secondary to PCOS and anovulatory cycles,hypothyroidism, hyperprolactinemia, obesity. Patient was explained about PCOS in detail and atypicalpathogens is behind the the syndrome. Patient was told that secondary to anovulation she can have secondary infertility , oligomenorrhea. Associated with again with PCOS candy to abnormal lipid profile and abnormal hemoglobin A1c and insulin resistance making a prediabetic. Patient was also explained in detail about ovulation and how to test for ovulation. She was told various methods namely basal body temp patient method, cervical mucus, ovulation predictor kit and day 21 progesterone testing. At this point of time patient is going to do ovulation predictor kit method. We also discussed doing cyclic progesterone for her to get started getting her periods at monthly intervals. Also discussed testing for different hormones secondary to her possible PCOS like FSH, LH, fasting insulin levels, prolactin levels, estradiol and 17 hydroxyprogesterone. PCP: REVIEW OF SYSTEMS: Constitutional: Negative for [...] headache. Endocrine: Negative for heat or cold intolerance, weight loss or gain. Hematological: Negative for bleeding, brusing or adenopathy. Psych: Negative for change in affect, change in mentation or sleep disturbance. HISTORY: Past Medical History: Diagnosis Date ??? Depression (emotion) (HRC) ??? Overactive bladder ??? Sleep apnea ??? Vitamin D deficiency (HRC) Past Surgical History: Procedure Laterality Date ??? APPENDECTOMY 2016 ??? SECTION 2013 OB History Para Term AB Living 1 0 0 0 0 0 SAB TAB Ectopic Multiple Live Births 0 0 0 0 0 # Outcome Date GA Lbr Barrera/2nd Weight Sex Delivery Anes PTL Lv 1 Current FAMILY HX: Family History Problem Relation Age [...] file Gets together: Not on file Attends caodaism service: Not on file Active member of [...] Medications Medication Sig Dispense Refill ??? cholecalciferol (VITAMIND3) 2000 units tablet Take 2,000 Units by mouth daily. ??? medroxyPROGESTERone (PROVERA) 10 MG tablet Take 1 tablet By mouth daily from 26-30 of each monthfor 3 cycles. 15 Tablet 0 No current facility-administered medications for this visit. LABS: No results found for: WBC No results found for: HCT No results found for: HGB No components found for: PLT Lab Results Component Value Date GLUCOSE 121 (H) 05/22/2018 HDL Cholesterol (mg/dL) Date Value 06/09/2018 40 LDL, Calculated (mg/dL) Date Value 06/09/2018 135 (H) No results found for: SODIUM No results found for: CHLORIDE No results found for: CO2 No results found for: BUN No results found for: CREATININE TSH, Reflex (uIU/mL) Date Value 05/22/2018 1.58 No components found for: LIVPNL FSH (mIU/mL) Date Value 06/09/2018 4.9 LH (mIU/mL) Date Value 06/09/2018 5 No components found for: PROL No components found for: INSUFR PHYSICAL EXAMINATION: Vitals: BP 117/64 (BP Location: Right Arm, BP Cuff Size: Adult Large) Pulse 89 Ht 5' 6.5 (1.689m) Wt (!) 324 lb 8 oz (147.2 kg) LMP 06/07/2018 (Exact Date) BMI 51.59 kg/m?? GENERAL: Patient is awake, alert, and oriented to time, place, and person and in no apparent distress. Rest of the exam deferred by the patient. ASSESSMENT: > oligomenorrhea Irregular periods Obesity Sec infertility PLAN: >refer to hpi for counseling > Patient has had irregular cycles, she was questioning about the pcos and patient was explained the etiopathogenesis behind the same With anovulatory cycles, unopposed estrogen exposure, high androgen levels leading to hirsutism, insulin resistance, abnormal lipid profile, prediabetic status, irregular periods, polycytic appearance of the ovaries. Patient wants to start trying again and was told to keep menstrual calender, she was told that ovulation roughly happens 14 days prior to the start of the next cycle. So by keeping track of her periodsshe can estimate the possible dates of ovulation. Depending on the cycle length, she should start testing for ovulation starting day 10 of her cycle, day 1 being first day of her cycle. We talked aboutchecking her husbands semen analysis if she does not conceive in th next 6 months after timing her ovulation and also get tubal patency testing test. We talked about testing for ovulation by bbt, ovulation predictor kit and cervical mucous testing. After she has a positive ovulation test she should have intercourse for the next 2-3 days . We talked about medical ovulation induction by clomid if she does not conceive in the next 3 cycles or ovulation test is negative. We also discussed doing cyclical progesterone if she has no periods regularly if the test is negative after testing for ovulation for alteast 10 -14 days with no . Role of hormonal testing inview of irregular periods namely TSH, insulin, fsh, lh, prolactin, dheas,testosterone level was discussed . > hormonal testing ordered for irregular periods, pcos and insulin sensitization > progesterone for withdrawal bleeding and then cyclical prog every month prescribed. > pnv daily > metformin in pcos and role of weight loss discussed. Will be started on it if abnormal insulin levels.Loosing even 10 percent of body weight can regulate the cycles and induce ovulation . > us pelvis for pcos ordered, also discussed emb if thickened endometrium noted on us. > patient will keep menstrual calender and test for ovulation > discussed medical ovulation induction with clomid and the protcol if doesnot conceive in th next 3 moNths. > amh levels ordered for ovarian reserve As 37 yo age.Patient will be informed about test resultsas soon as they are available to us. Patient verbalizes understanding of above as well as plan of care and agrees to it. - Spent 45 mins in the room with the patient [...] errors may result. Please contact me via [employer] staff message if you note any errors requiring clarification. ?? documented in this encounter Plan of Treatment Not on filedocumented as of this encounter Results (17) [place] Progesterone (06/09/2018 9:25 AM CDT) P athologist Signature 17-Hydroxyprog 19.27 <=206.00 06/11/2018 [facility] [facility] esterone, ng/dL 3:42 PM CDT LABORATORIES HPLC-MS/MS Comment: INTERPRETIVE INFORMATION for 17-Hydroxyp rogesterone in females: Follicular ?15 to 70 ng/dL Luteal ?3 5 to 290 ng/dL REFERENCE INTERVAL: 17-Hydroxyprogestero ne Qnt, HPLC-MS/MS Access complete set of age- and/or gende r-specific reference intervals for this test in the [employer] [facility] Test Directory ([employer]). Test developed and characteristics deter mined by [employer]. See Compliance Statement B : [employer] Performed by [facility] [employer] [facility], [address] [place] [address] www.[employer], Iker Peñaloza MD, Lab. Director Specimen Anatomical Collection Method / Collection Time Recei adama Time (Source) Location / Volume Laterality Blood Venipuncture / 06/09/2018 9:25 06/09/2018 9:25 Unknown AM CDT AM CDT Gabriela Wilson MD LAB_1 Performing Organization Address City/State/ZIP Code Phon e Number [facility] [[email or web address]] LABORATORIES [address] [phone] (ABNORMAL) Lipid Panel and Direct LDL(If Needed) (06/09/2018 9:25 AM CDT) [facility] Method Time Signature Cholesterol 197 0 - 199 06/09/2018 [facility] mg/dL 11:55 AM CDT LABORATORY Triglyceride 112 <=149 06/09/2018 [place] mg/dL 11:55 AM CDT LABORATORY HDL Cholesterol 40 >=40 06/09/2018 [place] mg/dL 11:55 AM CDT LABORATORY LDL, Calculated 135 (H) <130 06/09/2018 [place] mg/dL 11:55 AM CDT LABORATORY Non HDL Chol, 157 <=159 06/09/2018 [facility] Calculated mg/dL 11:55 AM CDT LABORATORY Cholesterol/HDL 4.9 06/09/2018 [place] Ratio 11:55 AM CDT LABORATORY Specimen Anatomical Collection Method / Collection Time Recei adama Time (Source) Location / Volume Laterality Blood Venipuncture / 06/09/2018 9:25 06/09/2018 9:25 Unknown AM CDT AM CDT Gabriela Wilson MD LAB_1 Performing Organization Address City/State/ZIP Code Phon e Number [facility] [address] [place] [address] LH (06/09/2018 9:25 AM CDT) P athologist Signature LH 5 mIU/mL 06/09/2018 [facility] 1:50 PM CDT LABORATORY Specimen Anatomical Collection Method / Collection Time Recei adama Time (Source) Location / Volume Laterality Blood Venipuncture / 06/09/2018 9:25 06/09/2018 9:25 Unknown AM CDT AM CDT Narrative [facility] - 06/09/2018 1:50 P M CDT Expected values for menstruating females Follicular Phase: 2-12 mIU/mL Mid-Cycle Peak: 8-89 mIU/mL Luteal Phase: 1-14 mIU/mL Expected values for postmenopausal femal es On HRT: 5-62 mIU/mL Gabriela Wilson MD LAB_1 Performing Organization Address [facility] Phon e Number [facility] [address] [place] [address] Prolactin (06/09/2018 9:25 AM CDT) P athologist Signature Prolactin 7.8 5.2 - 26.5 06/09/2018 [facility] ng/mL 1:50 PM CDT LABORATORY Specimen Anatomical Collection Method / Collection Time Recei adama Time (Source) Location / Volume Laterality Blood Venipuncture / 06/09/2018 9:25 06/09/2018 9:25 Unknown AM CDT AM CDT Gabriela Wilson MD LAB_1 Performing Organization Address [facility] Phon e Number [facility] [address] [place] [address] FSH (06/09/2018 9:25 AM CDT) athologist Signature FSH 4.9 mIU/mL 06/09/2018 [facility] 1:50 PM CDT LABORATORY Specimen Anatomical Collection Method / Collection Time Recei adama Time (Source) Location / Volume Laterality Blood Venipuncture / 06/09/2018 9:25 06/09/2018 9:25 Unknown AM CDT AM CDT Narrative [facility] - 06/09/2018 1:50 P M CDT Expected values for mensturating females Follicular Phase: 3.0-8.1 mIU/mL Mid-Cycle Peak: 2.6-16.7 mIU/mL Luteal Phase: 1.4-5.5 mIU/mL Post Menopausal Females without HRT: 26. 8-133.4 mIU/mL Gabriela Wilson MD LAB_1 Performing Organization Address [facility] Phon e Number [facility] [address] [place] [address] Estradiol (06/09/2018 9:25 AM CDT) athologist Signature Estradiol 56 pg/mL 06/09/2018 [facility] 1:55 PM CDT LABORATORY Specimen Anatomical Collection Method / Collection Time Recei adama Time (Source) Location / Volume Laterality Blood Venipuncture / 06/09/2018 9:25 06/09/2018 9:25 Unknown AM CDT AM CDT Narrative [facility] - 06/09/2018 1:55 P M CDT Expected values for menstruating females Follicular phase: 21-251 pg/mL Mid cycle phase: 38-649 pg/mL Luteal phase: 21-312 pg/mL Expected values for post menopausal fema les On HRT: <10-144 pg/mL Not on HRT: <10-28 pg/mL Gabriela Wilson MD LAB_1 Performing Organization Address City/State/ZIP Code Phon e Number [facility] [address] [place] [address] Anti Mullerian Hormone (06/09/2018 9:25 AM CDT) P athologist Signature Anti Mullerian 2.874 0.176 - 06/11/2018 [facility] Hormone 11.705 6:46 PM CDT LABORATORIES ng/mL Comment: INTERPRETIVE INFORMATION: Anti-Mullerian Hormone FEMALE: 6 months - 14 years: 0.256 - 6.345 ng/mL 15-17 years: ? 0.861 - 10.451 ng/mL 18-29 years: ? 0.401 - 16.015 ng/mL 30-39 years: ? 0.176 - 11.705 ng/mL 40-45 years: ? 6.282 ng/mL or less 46-50 years: ? 0.064 ng/mL or less Post-menopausal: ? 0.003 ng/mL or le ss MALE: 6-11 months: ? 56.677 - 495.29 9 ng/mL 1-6 years: ? 33.442 - 342.4 50 ng/mL 7-9 years: ? 20.245 - 189.7 81 ng/mL 10-12 years: ? 2.903 - 178.243 ng/mL 13 years and older: ??2.079 - 30.656 ng/ mL Test developed and characteristics deter mined by [employer]. See Compliance Statement D : [employer] Performed by [employer] [facility], [address] [place] [address] www.[employer], Iker Peñaloza MD, Lab. Director Specimen Anatomical Collection Method / Collection Time Recei adama Time (Source) Location / Volume Laterality Blood Venipuncture / 06/09/2018 9:25 06/09/2018 9:25 Unknown AM CDT AM CDT Gabriela Wilson MD LAB_1 Performing Organization Address [facility]/ZIP Code Phon e Number [facility] [facility] [address] [place], [place] [phone] Insulin, Serum (10Hr Fast Recommended) (06/09/2018 9:25 AM CDT) [facility] gist Method Time Signature Insulin, Serum 14.7 1.9 - 23.0 06/12/2018 [facility] uIU/mL 12:17 PM CDT [facility] Specimen Anatomical Collection Method / Collection Time Recei adama Time (Source) Location / Volume Laterality Blood Venipuncture / 06/09/2018 9:25 06/09/2018 9:25 Unknown AM CDT AM CDT Gabriela Wilson MD LAB_1 Performing Organization Address City/[facility]/ZIP Code Phon e Number [facility] [address] [address] documented in this encounter Visit Diagnoses Diagnosis Insulin resistance syndrome - Primary Dysmetabolic Syndrome X Female infertility associated with anovu lation PCOS (polycystic ovarian syndrome) (HRC) Polycystic ovaries Oligomenorrhea, unspecified type Obesity, unspecified classification, uns pecified obesity type, unspecified whether serious comorbidity present (HRC) documented in this encounter
--- OUTSIDE RECORDS SUMMARY | 2021-11-07 19:43 | XMS_ITS | Encounter Summary ---
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 I had told her about the dietary changes she needs to make on her last visit. She needs to continue management as per my recommendations in her office visit, menstrual calender, monthly progesterone, ovulation testing and return to our office in 3 months. documented in this encounter Plan of Treatment Not on filedocumented as of this encounter Procedures Procedure Name Priority Date/Time Associated Diagnosis Comme nts ANTI MULLERIAN Routine 06/09/2018 9:25 AM Female infertility R esults for this HORMONE CDT associated with procedure ar e in anovulation the results section. INSULIN, SERUM (10HR Routine 06/09/2018 9:25 AM Insulin resist ance Results for this FAST RECOMMENDED) CDT syndrome procedure are in the results section. LIPID PANEL AND Routine 06/09/2018 9:25 AM Insulin resistance Results for this DIRECT LDL(IF NEEDED) CDT syndrome proced ure are in the results section. ESTRADIOL Routine 06/09/2018 9:25 AM Female infertility Res ults for this CDT associated with procedure ar e in anovulation the results section. (17) [place] PROGESTERONE Routine 06/09/2018 9:25 AM Female inferti lity Results for this PLASMA/SE CDT associated with procedure ar e in anovulation the results section. PROLACTIN Routine 06/09/2018 9:25 AM Oligomenorrhea, Result s for this CDT unspecified type procedure a re in the results section. LH Routine 06/09/2018 9:25 AM Female infertility Res ults for this CDT associated with procedure ar e in anovulation the results section. FSH Routine 06/09/2018 9:25 AM Female infertility Res ults for this CDT associated with procedure ar e in anovulation the results section. documented in this encounter Results (17) [place] Progesterone (06/09/2018 9:25 AM CDT) P athologist Signature 17-Hydroxyprog 19.27 <=206.00 06/11/2018 [facility] esterone, ng/dL 3:42 PM CDT LABORATORIES HPLC-MS/MS Comment: INTERPRETIVE INFORMATION for 17-Hydroxyp rogesterone in females: Follicular ?15 to 70 ng/dL Luteal ?3 5 to 290 ng/dL REFERENCE INTERVAL: 17-Hydroxyprogestero ne Qnt, HPLC-MS/MS Access complete set of age- and/or gende r-specific reference intervals for this test in the [facility] Test Directory ([facility]). Test developed and characteristics deter mined by [facility]. See Compliance Statement B : [facility]/CS Performed by [facility], [address] [place] [address] [email or web address], Iker Peñaloza MD, Lab. Director Specimen Anatomical Collection Method / Collection Time Recei adama Time (Source) Location / Volume Laterality Blood Venipuncture / 06/09/2018 9:25 06/09/2018 9:25 Unknown AM CDT AM CDT Gabriela Wilson MD LAB_1 Performing Organization Address City/[facility] Phon e Number [facility] [address] [place], [place] [phone] (ABNORMAL) Lipid Panel and Direct LDL(If Needed) (06/09/2018 9:25 AM CDT) [facility] gist Method Time Signature Cholesterol 197 0 - 199 06/09/2018 [facility] mg/dL 11:55 AM CDT LABORATORY Triglyceride 112 <=149 06/09/2018 [facility] mg/dL 11:55 AM CDT LABORATORY HDL Cholesterol 40 >=40 06/09/2018 [facility] mg/dL 11:55 AM CDT LABORATORY LDL, Calculated 135 (H) <130 06/09/2018 [facility] mg/dL 11:55 AM CDT LABORATORY Non HDL Chol, 157 <=159 06/09/2018 [facility] Calculated mg/dL 11:55 AM CDT LABORATORY Cholesterol/HDL 4.9 06/09/2018 [facility] Ratio 11:55 AM CDT LABORATORY Specimen Anatomical Collection Method / Collection Time Recei adama Time (Source) Location / Volume Laterality Blood Venipuncture / 06/09/2018 9:25 06/09/2018 9:25 Unknown AM CDT AM CDT Gabriela Wilson MD LAB_1 Performing Organization Address City/State/ZIP Code Phon e Number [facility] [address] [place] [phone] LH (06/09/2018 9:25 AM CDT) P athologist Signature LH 5 mIU/mL 06/09/2018 [facility] 1:50 PM CDT LABORATORY Specimen Anatomical Collection Method / Collection Time Recei adama Time (Source) Location / Volume Laterality Blood Venipuncture / 06/09/2018 9:25 06/09/2018 9:25 Unknown AM CDT AM CDT Narrative [facility] - 06/09/2018 1:50 P M CDT Expected values for menstruating females Follicular Phase: 2-12 mIU/mL Mid-Cycle Peak: 8-89 mIU/mL Luteal Phase: 1-14 mIU/mL Expected values for postmenopausal femal es On HRT: 5-62 mIU/mL Gabriela Wilson MD LAB_1 Performing Organization Address [facility] Phon e Number [facility] [address] [employer] [place] [address] Prolactin (06/09/2018 9:25 AM CDT) P athologist Signature Prolactin 7.8 5.2 - 26.5 06/09/2018 [facility] ng/mL 1:50 PM CDT LABORATORY Specimen Anatomical Collection Method / Collection Time Recei adama Time (Source) Location / Volume Laterality Blood Venipuncture / 06/09/2018 9:25 06/09/2018 9:25 Unknown AM CDT AM CDT Gabriela Wilson MD LAB_1 Performing Organization Address [facility] Phon e Number [facility] [address] [place] [address] FSH (06/09/2018 9:25 AM CDT) P athologist Signature FSH 4.9 mIU/mL 06/09/2018 [facility] 1:50 PM CDT LABORATORY Specimen Anatomical Collection Method / Collection Time Recei adama Time (Source) Location / Volume Laterality Blood Venipuncture / 06/09/2018 9:25 06/09/2018 9:25 Unknown AM CDT AM CDT Narrative [facility] - 06/09/2018 1:50 P M CDT Expected values for mensturating females Follicular Phase: 3.0-8.1 mIU/mL Mid-Cycle Peak: 2.6-16.7 mIU/mL Luteal Phase: 1.4-5.5 mIU/mL Post Menopausal Females without HRT: 26. 8-133.4 mIU/mL Gabriela Wilson MD LAB_1 Performing Organization Address City/[facility] Phon e Number [facility] [address] [place] [address] Estradiol (06/09/2018 9:25 AM CDT) athologist Signature Estradiol 56 pg/mL 06/09/2018 [facility] 1:55 PM CDT LABORATORY Specimen Anatomical Collection Method / Collection Time Recei adama Time (Source) Location / Volume Laterality Blood Venipuncture / 06/09/2018 9:25 06/09/2018 9:25 Unknown AM CDT AM CDT Narrative [facility] - 06/09/2018 1:55 P M CDT Expected values for menstruating females Follicular phase: 21-251 pg/mL Mid cycle phase: 38-649 pg/mL Luteal phase: 21-312 pg/mL Expected values for post menopausal fema les On HRT: <10-144 pg/mL Not on HRT: <10-28 pg/mL Gabriela Wilson MD LAB_1 Performing Organization Address City/State/ZIP Code Phon e Number [facility] [address] [place] [address] Anti Mullerian Hormone (06/09/2018 9:25 AM CDT) athologist Signature Anti Mullerian 2.874 0.176 - [...] Test developed and characteristics deter mined by [facility]. See Compliance Statement D : [facility]/CS Performed by [facility], [address] [place] [id number] [email or web address], Iker Peñaloza MD, Lab. Director Specimen Anatomical Collection Method / Collection Time Recei adama Time (Source) Location / Volume Laterality Blood Venipuncture / 06/09/2018 9:25 06/09/2018 9:25 Unknown AM CDT AM CDT Gabriela Wilson MD LAB_1 Performing Organization Address City/[facility]/ZIP Code Phon e Number [facility] [address] [phone] Insulin, Serum (10Hr Fast Recommended) (06/09/2018 9:25 AM CDT) [facility] Method Time Signature Insulin, Serum 14.7 1.9 - 23.0 06/12/2018 [facility] uIU/mL 12:17 PM CDT [facility] Specimen Anatomical Collection Method / Collection Time Recei adama Time (Source) Location / Volume Laterality Blood Venipuncture / 06/09/2018 9:25 06/09/2018 9:25 Unknown AM CDT AM CDT Gabriela Wilson MD LAB_1 Performing Organization Address City/State/ZIP Code Phon e Number [facility] [address] [address] documented in this encounter Visit Diagnoses Diagnosis Insulin resistance syndrome Dysmetabolic Syndrome X Female infertility associated with anovu lation Oligomenorrhea, unspecified type documented in this encounter
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
--- OUTSIDE RECORDS SUMMARY | 2021-11-07 19:43 | XMS_ITS | Encounter Summary ---
:1980 Author Organization [facility] Address [address] [place] [address] Care Team Providers Name Role Phone Fadia Merchant M.D. Primary Care Provider Reason for Visit Reason Comments Med Refill Encounter Details Date Type Department Care Team Description 08/18/2021 Refill Department of Family Medicine, Zacarias Sarabia I., Med Refill [facility], in [place], [place] [address] [facility] [address] [place] [address] [place] [address] [phone] Social History Tobacco Use Types Packs/Day Years Used Date Smoking Tobacco: Never Smokeless Tobacco: Never Sex Assigned at Date Recorded Not on file documented as of this encounter Miscellaneous Notes Telephone Encounter - Leticia Farmer - 08/18/2021 12:11 PM CDT Images from the original note were not included. Pharmacy Communication. Rybelsus is not covered Primary Provider: Dr Sarabia Pharmacy (include location): [facility] documented in this encounter Plan of Treatment Upcoming Encounters Date Type Specialty Care Team Description 11/09/2021 Office Visit Family Medicine Fadia Merchant M.D. [address] [place] [address] (Wo rk) 11/10/2021 Office Visit Family Medicine Zacarias Sarabia M.B.B.S., M.D. [address] [facility] [place] [address] (Wo rk) 11/11/2021 Comprehensive Visit Orthopedic Surgery Ivan Deng M.D. [address] [phone] (Wo rk) documented as of this encounter Visit Diagnoses Diagnosis PreDiabetes - Primary Morbid Obesity Body Mass Index 50.0-59.9 Adult (HCC) Pain Knee Left - Primary documented in this encounter Additional Health Concerns Assessment Noted Time PHQ-9 Depression Total Score: 17 07/29/2021 9:47 AM CD T documented as of this encounter Care Teams Intermodal Dispatcher Relationship Specialty Start Date End Date Fadia Merchant M.D. PCP - General Family Medicine 05/05/21 [address] [facility] [place] [phone] documented as of this encounter
--- OUTSIDE RECORDS SUMMARY | 2021-11-07 19:43 | XMS_ITS | Encounter Summary ---
:1980 Author Organization [facility] Address [address] [place] [address] Care Team Providers Name Role Phone Fadia Merchant M.D. Primary Care Provider Reason for Referral Outpatient (Routine) - Authorized Specialty Diagnoses / Procedures Referred By Contact Refer red To Contact Diagnoses Morbid Obesity Body Mass Index 50.0-59.9 Adult (HCC) Incontinence Urinary Stress And Urge [facility] Procedures URO Uroflow R.N. [address] [phone] Referral ID Status Reason Start Date Expiration Date Visits V isits Requested Authorized [id number] Authorized 10/19/2021 10/19/2022 1 1 Outpatient (Routine) - Authorized Specialty Diagnoses / Procedures Referred By Contact Refer red To Contact Urology Diagnoses Morbid Obesity Body Mass Index 50.0-59.9 Adult (HCC) Incontinence Urinary Stress And Urge Vera Preston APRN [facility] R.N. [address] [phone] Referral ID Status Reason Start Date Expiration Date Visits V isits Requested Authorized [id number] Authorized 10/19/2021 10/19/2022 [address] Felton Reason for Visit Reason Comments Consult Urinary Incontinence Appointment Request (Routine) - Closed Specialty Diagnoses / Procedures Referred By Contact Refer red To Contact Urology Referral ID Status Reason Start Date Expiration Date Visits Requ ested Visits Authorized [id number] Closed 10/13/2021 10/13/2022 1 1 Encounter Details Date Type Department Care Team Description 10/19/2021 Comprehensive Visit Department of Vera Preston ontinence Urinary Stress And Urge (Primary Dx); Urology in [place] R.N. Morbid Obesity Body Mass Index 50.0-59.9 Adult ([facility]) [facility] [address] [place], [place] [address] [address] [place], [place] [phone] (Work) [phone] Social History Tobacco Use Types Packs/Day Years Used Date Smoking Tobacco: Never Smokeless Tobacco: Never Sex Assigned at Date Recorded Not on file documented as of this encounter Consult Notes Vera Preston APRN RNeha - 10/19/2021 3:30 PM CDT SUBJECTIVE REASON FOR CONSULT Female incontinence HISTORY OF PRESENT ILLNESS Narinder is a pleasant 40-year-old female here today for consultation for urinary incontinence. [place] seen in [place] in [place]. She has been seen by a few urologists in the [facility] in the last few years. She did have urodynamic testing in June 2019 that showed normal findings including normal bladder capacity, excellent bladder compliance, no clear detrusor instability, and no stress leak. Shehad good detrusor function and PVR was 75 mL. Prior to urodynamic testing, she had tried and failed numerous oral medications including oxybutynin, trospium, mirabegron, and Detrol. She did have intravesical Botox injections, 100 units and repeat of 150 units. She stated this was helpful for awhile but her symptoms came back. We discussed that this is a chronic issue and she will need to have continued Botox injections on a regular basis to continue to receive improvement of symptoms from this. She has had a lot of issues with anxiety and depression, she has gained about 75 lb since I last sawher. She describes that she has trouble even knowing when she has to use the bathroom. She states that if she is standing, walking, moving around that she will leak urine without realizing it. She states that there have been times where she felt she had a full bladder then started to cough and her urine was spraying out ???like a little boy?? . She leaks quite a bit of urine in the night. She does not have good sleep habits and spends quite a bit of time sleeping on the couch. She does not wear her CPAP most of the time. She states that she has again soiled her mattress to the point that she needs to throw her mattress away. Of note, she went 6 hours without feeling the need to urinate or leaking urine today. [facility] URO PROLAPSE INTAKE QUESTIONNAIRE SB: How many pregnancies have you had?: 1 How many live births have you had?: 1 How many vaginal deliveries have you had?: 1 Associated Symptoms Chemical exposures: toxic chemical exposure (-) Lower Urinary Symptoms Lower Urinary Sx: able to sense full bladder (-) difficulty urinating (+) Obstructive Sx: kidney infections or required hospitalization for kidney failure (-) # of UTI's in past year: None Required catheter: no Incontinence: unintentionally leaks urine (+) leaking occurs during coughing, sneezing or lifting heavy objects (+) experiences a feeling of urgency before leaking (+) The following portions of the patient's history were reviewed and updated as appropriate: allergies,current medications, family history, medical history, social history, surgical history, and problem list. REVIEW OF SYSTEMS Genitourinary: Positive for incontinence, difficulty urinating and urgency. OBJECTIVE There were no vitals filed for this visit. PHYSICAL EXAM Vitals and nursing note reviewed. General: Well developed, well nourished, well groomed female in no acute distress. Neurological: Alert, cooperative, oriented x3. Appropriate mood and affect. Head: Normal appearance, no abnormalities, normocephalic. Neck: Symmetrical and supple, trachea is midline. Cardiac: regular rate, regular rhythm Respiratory: Respirations are unlabored with normal respiratory rate and normal respiratory movements. Normal chest wall expansion without use of accessory muscles. Abdomen: Soft, non-tender, non-distended, morbidly obese Extremities: Warm, without edema or ulcerations. DIAGNOSTIC Postvoid residual by bladder scan 125 mL. ASSESSMENT / PLAN 1. Morbid Obesity Body Mass Index 50.0-59.9 Adult ([facility]) 2. Incontinence Urinary Stress And Urge We had an in-depth discussion about her urinary symptoms. We discussed that what she is describing is both stress and urge incontinence. We discussed that her weight increase will have impact on her urinary symptoms. She has not been successful with obtaining bariatric surgery at due to mental health issues. She wonders about further options for treatment of her urinary symptoms. We discussed that stress incontinence would be treated with pelvic floor physical therapy which she has attended in the past. We discussed mid urethral sling and that this would be a very difficult procedure to be performed here due to her obesity. We also discussed possibility of repeat Botox injections as well as InterStim trial. After some discussion, referral for consultation with our colleagues at [facility] Urology Department is provided. In the meantime, she is given prescription for pull-ups, Chux under pads, and wipes. All questions answered today. - Urology - Female - incontinence consult (clinic); Future - Urinalysis with Microscopic: Urine, Midstream; Future - URO Uroflow; Future - DME Urological supplies; Miscellaneous supplies; Adult pull up [id number] ([id number]), Baby wipes, Other (specify); Every 6 hours; 30 days; 120; Every 6 hours; 90 days; 120; Chux pads for urinary incontinence; Every 4 hours; 30 days; 180 - DME Medical Justification: Urological supplies Signed by: Vera Preston APRN, R.NEliseo 10/19/2021 3:55 PM CDT documented in this encounter Plan of Treatment Upcoming Encounters Date Type Specialty Care Team Description 11/09/2021 Office Visit Family Medicine Fadia Merchant M.D. [address] [facility] [place] [phone] (Wo rk) 11/10/2021 Office Visit Family Medicine Zacarias Sarabia M.B.B.S., M.D. [address] [facility] [place] [phone] (Wo rk) 11/11/2021 Comprehensive Visit Orthopedic Surgery Ivan Deng M.D. [address] [place], [place] [phone] (Wo rk) Scheduled Orders Name Type Priority Associated Diagnoses Order S chedule Urinalysis with Lab Routine Morbid Obesity Body Expec satish: Microscopic: Urine, Mass Index 50.0-59.9 10/19/2021 Midstream Adult (HCC) (Approximate), Incontinence Urinary Expires : 01/18/2023 Stress And Urge URO Uroflow Procedure Routine Morbid Obesity Body Expected : Mass Index 50.0-59.9 022 Adult (HCC) (Approximate), Incontinence Urinary Expires : 01/18/2023 Stress And Urge Scheduled Referrals Name Type Priority Associated Order Schedule Diagnoses Urology - Female - Outpatient Referral Routine Morbid Obesity Body Expected: incontinence consult Mass Index 022 (clinic) 50.0-59.9 Adult (Approximate ), (HCC) Expires: Incontinence 01/18/2023 Urinary Stress And Urge documented as of this encounter Visit Diagnoses Diagnosis Incontinence Urinary Stress And Urge - P rimary Morbid Obesity Body Mass Index 50.0-59.9 Adult (HCC) Pain Knee Left - Primary documented in this encounter Additional Health Concerns Assessment Noted Time PHQ-9 Depression Total Score: 20 09/28/2021 4:18 PM CD T documented as of this encounter Care Teams Applicator Sprayer Relationship Specialty Start Date End Date Fadia Merchant M.D. PCP - General Family Medicine 05/05/21 [address] [facility] [place] [phone] documented as of this encounter
--- OUTSIDE RECORDS SUMMARY | 2021-11-07 19:43 | XMS_ITS | Clinical Summary ---
:1980 Author Organization [facility] Address [address] [place] [address] Care Team Providers Name Role Phone Fadia Merchant M.D. Primary Care Provider Source Comments Patient records contain information from all sites at [facility]. For routine questions regarding patient records, call [phone] during business hours, M-F 8:00 AM - 5:00 PM Central Time. Record requests for emergency care only can be directed to [phone] at any time.[facility] Allergies No known active allergies Medications Medication Sig Dispensed Refills Start Date End Date Status acetaminophen (TYLENOL) 0 04/02/2021 Active 500 mg tablet ergocalciferol (DRISDOL) Take 1 capsule 8 capsule 0 05/12/2021 Active 50,000 Unit capsule (50,000 Units total) by mouth once a week. Additional Information Patient not taking. Reported on 09/28/2021 traZODone (DESYREL) 100 mg Take 1 tablet 30 tablet 2 2 11/23/2021 Active tabletIndications: (100 mg total) by Depression Major Single mouth at bedtime. Episode Severe Without Psychotic Features (HCC) Additional Information Patient not taking. Reported on 09/28/2021 FLUoxetine (PROzac) 40 mg Take 2 capsules 60 capsule 2 022 11/23/2021 Active capsuleIndications: (80 mg total) by Depression Major Single mouth daily. Episode Severe Without Psychotic Features (HCC) Additional Information Patient not taking. Reported on 09/28/2021 liraglutide (Victoza 2-Андрей) 0.6 Inject 0.6 mg 6 mL 1 10/0901/06/2022 Active mg/0.1 mL (18 mg/3 mL) under the skin injectionIndications: daily for 7 days, PreDiabetes, Morbid Obesity Body THEN 1.2 mg Mass Index 50.0-59.9 Adult ([facility]) daily. 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 11/05/2021 Nurse Triage Family Medicine BILLIE Vargas Nurse Line; Lawanda Roa R.N. Back Pain 10/30/2021 Clinical Family Medicine Zacarias Sarabia I., M.B.B.S., M.D. 10/26/2021 Orders Only Fadia Merchant M.D. 10/19/2021 Comprehensive Visit Urology Vera Preston ntinencyane Urinary Stress And Urge (Primary Dx); A, MUSIC THEORY PROFESSOR, R.N. Morbid Obesity Body Mass Index 50.0-59.9 Adult ([facility]) 10/19/2021 Clinical Family Medicine Fadia Merchant ED follo w up Communication MPamela 09/28/2021 Office Visit Family Medicine Zacarias Sarabia Depressio n Macario Bernal, M.B.B.S., Single Episode M.D. Severe Without Psychotic Featu res ([facility]) 09/10/2021 Clinical Family Medicine Fadia Merchant, Communication M.D. 09/10/2021 Nurse Triage Family Medicine Lesa Mclean, Vomiting R.N. 08/28/2021 Clinical Family Medicine Zacarias Sarabia I., M.B.B.S., M.D. 08/25/2021 Hospital Encounter Laboratory Zacarias Sarabia Neurop athy Medicine Becky Bernal M.D. 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 08/13/2021 Orders Only Pharmacy Phyllis Harmon from Last 3 Months Immunizations Name Administration Dates Next Due HepB (discontinued) adolescent/high 01/12/2005, 08/14/2004, 07/10/2004 risk IPV 10/03/2012 Influenza (IM) Preservative Free 03/01/2012 Influenza, Injectable, Quadrivalent 11/28/2013 Influenza, Unspecified 05/02/2013 MMR 08/14/2004, 07/10/2004 Td (Adult), adsorbed 02/16/2005, 08/14/2004, 07/10/2004 Tdap 07/05/2013, 06/30/2013, 11/03/2011 Tuberculin Skin Test, Unspecified 08/18/2004 TyVi (inj) 10/03/2012 DAWN 08/14/2004, 07/10/2004 YF 10/03/2012 influenza vaccine quad 03/12/2021, 10/27/2019, 03/21/2019, (FLUZONE/FLUARIX) (6 months and 12/26/2017, 11/28/2013 older)(PF) Family History Medical History Relation Name Comments Hypertension Father No Known Problems Maternal Grandfather No Known Problems Maternal Grandmother Hyperlipidemia Mother TB - Pulmonary tuberculosis Mother No Known Problems Paternal Grandfather No Known Problems Paternal Grandmother Relation Name Status Comments Father Maternal Grandfather Maternal Grandmother Mother Paternal Grandfather Paternal Grandmother Social History Tobacco Use Types Packs/Day Years Used Date Smoking Tobacco: Never Smokeless Tobacco: Never Tobacco Cessation: Counseling Given: Not Answered Sex Assigned at Date Recorded Not on file Last Filed Vital Signs Vital Sign Reading Time Taken Comments Blood Pressure 137/83 09/28/2021 4:22 PM CDT Pulse 112 09/28/2021 4:22 PM CDT Temperature 35.9 ??C (96.7 ??F) 09/28/2021 4:22 PM CDT Respiratory Rate 16 09/28/2021 4:22 PM CDT Oxygen Saturation 96% 07/14/2021 3:17 PM CDT Inhaled Oxygen Concentration - - Weight 168 kg (370 lb 6 oz) 09/28/2021 4:22 PM CDT Height 169.5 cm (5' 6.73) 09/28/2021 4:22 PM CDT Body Mass Index 58.48 09/28/2021 4:22 PM CDT Plan of Treatment Upcoming Encounters Date Type Specialty Care Team Description 11/09/2021 Office Visit Family Medicine Fadia Merchant M.D. [address] [place] [address] (Wo rk) 11/10/2021 Office Visit Family Medicine Zacarias Sarabia M.B.B.S., M.D. [address] [place] [address] (Wo rk) 11/11/2021 Comprehensive Visit Orthopedic Surgery Ivan Deng M.D. [address] [phone] (Wo rk) Health Maintenance Due Date Last Done Comments HIV Screening 1980 Hepatitis C Screening 1980 Cervical Cancer Screening 02/07/2015 02/08/2012 (Performed elsewhere) COVID-19 Vaccine (4 - 05/07/2021 03/12/2021, 06/12/2020, Booster for Moderna series) 05/14/2020 Influenza Vaccine (#1) 2021 03/12/2021, 10/27/2019, 03/21/2019, Additional history exists Depression Monitoring 01/28/2022 09/28/2021 (PHQ-9) Fasting Glucose for 05/22/2022 05/22/2021, 05/22/2021, Diabetes Screening 03/12/2021, Additional history exists DTaP,Tdap,and Td Vaccines 07/06/2023 07/05/2013, 06/30/2013 , (4 - Td or Tdap) 11/03/2011, Additional history exists Lipid (Cholesterol) 03/12/2026 03/12/2021 Screening Hepatitis B Vaccines Completed 01/12/2005, 08/14/2004, 07/10/2004 Pneumococcal vaccine (0-64 Aged Out No lo nger eligible years) based on patient 's age to complete this topic Procedures Procedure Name Priority Date/Time Associated Diagnosis Comme nts OUTSIDE DX SKELETAL Routine 10/14/2021 12:20 AM R esults for this CDT procedure are i n the results section. FOLATE, S Routine 08/25/2021 5:13 PM Neuropathy Results f or this CDT procedure are i n the results section. VITAMIN B12 ASSAY, Routine 08/25/2021 5:13 PM Neuropathy Res ults for this S CDT procedure are i n the results section. from Last 3 Months Results XR KNEE 3 VIEWS LEFT PORTABLE-Outside Skeletal Xray (10/14/2021 12:20 AM CDT) Specimen (Source) Anatomical Location Collection Method / Collectio n Time Received Time / Laterality Volume Narrative IIMS - 10/20/2021 8:40 AM CDT This order has been created and auto-finalized to support the import of outside images. If available, original i nterpretation can be found on the Media Tab in Chart Review, in Document V iewer, or as an image in QREADS. If a re-interpretation or overread is re quired please follow defined workflow. ?? Provider Not In System IMG DIAGNOSTIC IMAGING [facility] [place] Performing Organization Address City/State/ZIP Code Phon e Number [facility] NA Folate (08/25/2021 5:13 PM CDT) P athologist Signature Folate, S 5.1 >=4.0 mcg/L 08/25/2021 AUST 10:38 PM CDT Comment: Biotin has been identified by the lucy cochranr as a potential interfering substance. Higher concentrations [...] M.D. LAB BLOOD ADD-ON Performing Organization Address City/[facility]/ZIP Code Phon e Number [facility]- [address] [place] [address] [facility] [place], [place] [id number] [place] [address] Vitamin B12 Assay (08/25/2021 5:13 PM CDT) athologist Signature Vitamin B12 [phone] - 1993 08/25/2021 AUST Assay, S ng/L 10:38 PM [...] M.D. LAB BLOOD ADD-ON Performing Organization Address City/[facility]/ZIP Code Phon e Number [facility]- [address] [place] [address] [facility] [place], [place] [id number] [place] [address] from Last 3 Months Insurance Payer Benefit Plan Subscriber ID Effective Dates Phone Address Type / Group ARE [facility] [id number] 2021-Presen [phone] [id number] Medicaid HMO t 5 [place] [address] Guarantor Name Account Type Relation to Date of Phone Billing Address Patient LanceNarinder mary Personal/Famil Self 1980 [address] (Work) [address] [place] [phone] Care Teams Gemologist Relationship Specialty Start Date End Date Fadia Merchant M.D. PCP - General Family Medicine 05/05/[address] [place] [address] [place] [phone]
--- OUTSIDE RECORDS SUMMARY | 2021-11-07 19:43 | XMS_ITS | Encounter Summary ---
:1980 Author Organization [facility] Address [address] [place] [address] Care Team Providers Name Role Phone Fadia Merchant M.D. Primary Care Provider Reason for Visit Reason Comments Depression Has been having thoughts abo ut suicide. Just sits on the couch, legs hurt, hard to walk. Not taking car e of herself, not taking medications. Has been going on for a while. Though ts of suicide has been going on for about one week. 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) Zacarias Sarabia I., [facility] M.B.B.SVannessa Gomes [address] [place] [address] Referral ID Status Reason Start Date Expiration Date Visits Requ ested Visits Authorized [id number] Closed 08/25/2021 08/25/2022 1 1 Encounter Details Date Type Department Care Team Description 09/28/2021 Office Visit Department of Family [facility] MedicineKasandra M.B.B.SEliseo, Single Episode Severe Clinic, in [place] Without Psychotic [place] [address] [facility] Features (HCC) [address] [place] [phone] Social History Tobacco Use Types Packs/Day Years [...] 16 09/28/2021 4:22 PM CDT Oxygen Saturation - - Inhaled Oxygen Concentration - - Weight 168 kg (370 lb 6 oz) 09/28/2021 4:22 PM CDT Height 169.5 cm (5' 6.73) 09/28/2021 4:22 PM CDT Body Mass Index 58.48 09/28/2021 4:22 PM CDT documented in this encounter Progress Notes Zacarias Sarabia M.B.B.S., M.D. - 09/28/2021 4:15 PM CDT SUBJECTIVE CHIEF COMPLAINT / REASON FOR VISIT Narinder Lucas is a 40 y.o. female who presents for evaluation of Depression (Has been having thoughts about suicide. Just sits on the couch, legs hurt, hard to walk. Not taking care of herself, nottaking medications. Has been going on for a while. Thoughts of suicide has been going on for about one week.). HISTORY OF PRESENT ILLNESS Narinder Lucas is a 40-year-old female with a history of major depression, morbid obesity and prediabetes. Patient is here for follow-up. Patient has been started on fluoxetine and trazodone for depression anxiety. At her last visit, her symptoms had not improved consistently even though she was taking her medications. Fluoxetine was increased to 80 mg daily and trazodone 200 mg daily. Patient was also started on semaglutide due to prediabetes, morbid obesity and neuropathy. Today, patient reports that she has been apathetic and on motivated. She finds it difficult to get off the couch all day. She sits down in 1 place even ordering her meals online. She feels trapped. Shehas not been taking any of her medications. She is tearful in the office and admits that if she had any more energy, she will kill herself. She feels unsupported by her and her [place] community. PHQ-9 score 20 MIKEY-7 score 16 The following portions of the patient's history were reviewed and updated as appropriate: allergies,current medications, family history, medical history, social history, surgical history, and problem list. REVIEW OF SYSTEMS Pertinent items are noted in HPI. OBJECTIVE BP 137/83 (BP Location: Left arm, Patient Position: Sitting, Cuff Size: Large) Pulse (!) 112 Temp (!) 35.9 ??C (Temporal) Resp 16 Ht 169.5 cm Wt (!) 168 kg BMI 58.48 kg/m?? PHYSICAL EXAM General Appearance: healthy, alert, no distress, cooperative, crying. Skin: skin color, texture, turgor normal, no suspicious rashes or lesions. Head: normocephalic, no masses, lesions, tenderness or abnormalities. Eyes: Anicteric sclera. Pupils are equally round and reactive to light. Extraocular movements are intact. 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 Patient has worsening symptoms with active suicidal ideations. She admits to wanting to kill herselfwith a gun. She does not have a gun at this time. She is not taking her medications and feels trapped in a cycle of apathy and depression. Patient is at significant risk of self-harm. We discussed this extensively and I have sent her to the emergency room to be evaluated. I believe she would likely need placement. documented in this encounter Plan of Treatment Upcoming Encounters Date Type Specialty Care Team Description 11/09/2021 Office Visit Family Medicine Fadia Merchant M.D. [address] [place] [phone] (Wo rk) 11/10/2021 Office Visit Family Medicine Zacarias Sarabia M.B.B.S., M.D. [address] [place] [phone] (Wo rk) 11/11/2021 Comprehensive Visit Orthopedic Surgery Ivan Deng M.D. [address], [place] [phone] (Wo rk) documented as of this encounter Visit Diagnoses Diagnosis Depression Major Single Episode Severe W ithout Psychotic Features (HCC) Pain Knee Left - Primary documented in this encounter Additional Health Concerns Assessment Noted Time PHQ-9 Depression Total Score: 20 09/28/2021 4:18 PM CD T documented as of this encounter Care Teams Geographic Information Systems Analyst Relationship Specialty Start Date End Date Fadia Merchant M.D. PCP - General Family Medicine 05/05/[address] [place] [phone] documented as of this encounter
--- OUTSIDE RECORDS SUMMARY | 2021-11-07 19:43 | XMS_ITS | Encounter Summary ---
:1980 Author Organization [facility] Address [address] [place] [address] Care Team Providers Name Role Phone Unavailable Primary Care Provider Unavailable Reason for Referral Consult/Transfer Care (Routine) - Closed Specialty Diagnoses / Procedures Referred By Contact Refer red To Contact Diagnoses Prediabetes Thais Soto PA-C [id number] [place] [id number] Referral ID Status Reason Start Date Expiration Date Visits Requ ested Visits Authorized [id number] Closed 06/01/2018 08/31/2019 1 1 Scheduling Instructions Your provider has recommended an appoint ment with Kimmy Muniz. You may call [phone] to schedule your appoi ntment. If you do not schedule an appointment within the next 1 to 3 business days, we will call you to help arrange your appointment. We suggest you call your [employer] insurance company about your coverage and benefits for this appointment. Reason for Visit Reason Comments REFERRAL REQUEST Encounter Details Date Type Department Care Team Description 05/31/2018 Telephone Thais Jauregui, REFERRAL REQUEST [address] Gle[address] PA-C [id number] [phone] [address] [id number] (Wo rk) Social History Tobacco Use Types [...] documented as of this encounter Nursing Notes Katja Nichole LPN - 06/01/2018 2:46 PM CDT Left message with day spa manager number to call and schedule. Thais Kuhn PA-C - 06/01/2018 1:35 PM CDT Order placed. Thanks. Debra Lantigua, RN - 05/31/2018 10:44 AM CDT Clinician Action: Referral request Clinician Next Step: Route to [facility] to follow up and Patient IS expecting a call back fromcare team Specific Request(s): 1. Patient asking for referral for day spa manager. Reviewed labs done on 05/22 and provider recommendations. She is concerned about pre-diabetes. She would like to meet with a day spa manager. Is aware to check with insurance on coverage. She also is going tolook into Pre-diabetes class offered through [facility], information given on this. Please call when referral placed. Ernesto Wilson - 05/31/2018 10:17 AM CDT Test Results (Advise caller/patient can view test results in [facility], if enrolled) What test are you calling about? labs Primary Vocational Rehabilitation Consultant: Who ordered the test? (include first & last name) Thais Kuhn PA-C When and where was the test done? 05/22/18 Additional comments (related to the above concern): [...] Name Type Priority Associated Diagnoses Order S shahbaz Nutrition/Dietitian Referral Routine Prediabetes Ordered: 06/01/2018 documented as of this encounter Visit Diagnoses Diagnosis Prediabetes - Primary Other abnormal glucose documented in this encounter
--- OUTSIDE RECORDS SUMMARY | 2021-11-07 19:43 | XMS_ITS | Encounter Summary ---
:1980 Author [facility] Address [address] [place] [address] Care Team Providers Name Role Phone Unavailable Primary Care Provider Unavailable Reason for Visit Reason Comments LAB RESULTS Encounter Details Date Type Department Care Team Description 06/13/2018 Telephone [facility] Zachary Wilson MD LAB RESULTS Services-LEAF SORTER [address] [facility] [address] [id number] [facility], [place] [address] [address] [place] [address] [phone] Social History Tobacco Use Types Packs/Day Years [...] documented as of this encounter Nursing Notes Xin Alamo RN - 06/13/2018 12:13 PM CDT Insulin levels are WNL, Metformin is not indicated per provider. Called patient to advise provider'smessage. Pt has asked for information on making lifestyle changes, diet, exercise. Information printed and sent to home address on file. Xin Alamo RN - 06/13/2018 11:43 AM CDT Images from the original note were not included. Gabriela Wilson MD [facility] Triage ?? Please inform patient all her labs are wnl, except her ldl is slightly high. I had told her about the dietary changes she needs to make on her last visit. She needs to continue management as per my recommendations in her office visit, menstrual calender, monthly progesterone, ovulation testing and return to our office in 3 months. Reason for Call: Medication Request. Next Steps: Route to [facility] [place] for patient follow up. Additional Information: Nurse called patient to discuss recent lab results and provider recommendations. Pt has questions regarding starting Metformin. No notes from 06/08 office visit to review. Please advise. documented in this encounter Plan of Treatment Not on filedocumented as of this encounter Visit Diagnoses Not on filedocumented in this encounter
--- OUTSIDE RECORDS SUMMARY | 2021-11-07 19:43 | XMS_ITS | Encounter Summary ---
:1980 Author Organization [facility] Address [address] [place] [address] Care Team Providers Name Role Phone Unavailable Primary Care Provider Unavailable Encounter Details Date Type Department Care Team Description 05/22/2018 Lab Visit [facility] Well adult exam; [address] Fatigue, unspecified type MARIBETH Valente [id number] Social History Tobacco Use Types Packs/Day Years [...] Name Priority Date/Time Associated Diagnosis Comme nts LIPID PANEL AND Routine 05/22/2018 10:45 AM Well adult exam Re sults for this DIRECT LDL(IF CDT procedure are in NEEDED) the results section. VITAMIN D Routine 05/22/2018 10:45 AM Fatigue, unspecified Results for this 25-HYDROXY, TOTAL CDT type procedure are in the results section. TSH, SENSITIVE Routine 05/22/2018 10:45 AM Fatigue, unspecifie d Results for this (WITH REFLEX) CDT type procedure are in the results section. HGB A1C Routine 05/22/2018 10:45 AM Well adult exam Resul ts for this CDT procedure are i n the results section. GLUCOSE Routine 05/22/2018 10:45 AM Well adult exam Resul ts for this CDT procedure are i n the results section. documented in this encounter Results (ABNORMAL) Vitamin D 25-Hydroxy (In house) (05/22/2018 10:45 AM CDT) athologist Signature Vitamin D, 9 (L) 30 - 80 05/23/2018 [facility] 25-OH, Total ng/mL 12:09 AM CDT LABORATORY Specimen Anatomical Collection Method / Collection Time Recei adama Time (Source) Location / Volume Laterality Blood Venipuncture / 05/22/2018 10:45 9 Unknown AM CDT 10:45 AM CDT Narrative [facility] - 05/23/2018 12:09 AM CDT Expected values Deficiency: <20 ng/mL Insufficient: 20-29 ng/mL Optimum: 30-80 ng/mL Possible toxicity: >80 ng/mL Thais Soto PA-C LAB_1 Performing Organization Address [facility]/ZIP Code Phon e Number [facility] [id number] [place] [address] TSH with Free T4 (if TSH Abnormal) (05/22/2018 10:45 AM CDT) athologist Signature TSH, Reflex 1.58 0.30 - 4.50 05/22/2018 [facility] uIU/mL 5:21 PM CDT LABORATORY Specimen Anatomical Collection Method / Collection Time Recei adama Time (Source) Location / Volume Laterality Blood Venipuncture / 05/22/2018 10:45 9 Unknown AM CDT 10:45 AM CDT Narrative [facility] - 05/22/2018 5:21 P M CDT Lab will automatically reflex to Free T4 when TSH results are <0.30 uIU/mL or >4.50 mIU/mL. Thais Soto PA-C LAB_1 Performing Organization Address [facility] Phon e Number [facility] [address] [place] [address] (ABNORMAL) Hemoglobin A1C Glycosylated (05/22/2018 10:45 AM CDT) Analysis Performed At Patho logist Time Signature Hemoglobin A1C 5.8 (H) <=5.6 % 05/22/2018 [facility] 11:42 PM CDT LABORATORY Specimen Anatomical Collection Method / Collection Time Recei adama Time (Source) Location / Volume Laterality Blood Venipuncture / 05/22/2018 10:45 9 Unknown AM CDT 10:45 AM CDT Narrative [facility] - 05/22/2018 11:42 PM CDT For patients not previously diagnosed with diabetes: 5.7-6.4%: Increased risk for diabetes 6.5% and greater: Diagnostic for diabete s For patients diagnosed with diabetes: <8.0%: Goal of therapy for ages 18-75 Clinicians may recommend a higher or low er goal for specific individuals. Thais Soto PA-C LAB_1 Performing Organization Address City/State/ZIP Code Phon e Number [facility] [address] [place] [address] (ABNORMAL) Glucose (05/22/2018 10:45 AM CDT) athologist Signature Glucose 121 (H) 70 - 100 05/22/2018 [facility] mg/dL 5:12 PM CDT LABORATORY Specimen Anatomical Collection Method / Collection Time Recei adama Time (Source) Location / Volume Laterality Blood Venipuncture / 05/22/2018 10:45 9 Unknown AM CDT 10:45 AM CDT Thais Soto PA-C LAB_1 Performing Organization Address City/State/ZIP Code Phon e Number [facility] [id number] [place] [address] (ABNORMAL) Lipid Panel - LDLD If Trig High (05/22/2018 10:45 AM CDT) [facility] gist Method Time Signature Cholesterol 198 0 - 199 05/22/2018 [facility] mg/dL 5:12 PM CDT LABORATORY Triglyceride 157 (H) <=149 05/22/2018 [facility] mg/dL 5:12 PM CDT LABORATORY HDL Cholesterol 44 >=40 05/22/2018 [facility] mg/dL 5:12 PM CDT LABORATORY LDL, Calculated 123 <130 05/22/2018 [facility] mg/dL 5:12 PM CDT LABORATORY Non HDL Chol, 154 <=159 05/22/2018 [facility] Calculated mg/dL 5:12 PM CDT LABORATORY Cholesterol/HDL 4.5 05/22/2018 [facility] Ratio 5:12 PM CDT LABORATORY Specimen Anatomical Collection Method / Collection Time Recei adama Time (Source) Location / Volume Laterality Blood Venipuncture / 05/22/2018 10:45 9 Unknown AM CDT 10:45 AM CDT Thais Soto PA-C LAB_1 Performing Organization Address City/State/ZIP Code Phon e Number [facility] [address] [place] [address] documented in this encounter Visit Diagnoses Diagnosis Well adult exam Routine general medical examination at a health care facility Fatigue, unspecified type documented in this encounter
--- OUTSIDE RECORDS SUMMARY | 2021-11-07 19:43 | XMS_ITS | Encounter Summary ---
:1980 Author Organization [facility] Address [address] [place] [address] Care Team Providers Name Role Phone Fadia Merchant M.D. Primary Care Provider Reason for Visit Reason Comments COVID Nurse Line Back Pain Encounter Details Date Type Department Care Team Description 11/05/2021 Nurse Triage Department of [facility] Lawanda Vargas Nurse Line; Back Medicine, [place] Roa R.N. Pain Clinic, in [facility] [address] [place], [place] [address] [facility] [place] [place] [address] [place], [place] [phone] [address] (Work) [phone] Social History Tobacco Use Types Packs/Day Years Used Date Smoking Tobacco: Never Smokeless Tobacco: Never Sex Assigned at Date Recorded Not on file documented as of this encounter Miscellaneous Notes Telephone Encounter - Lawanda Vargas RNeha - 11/05/2021 2:53 PM CDT Chief Complaint / Reason for Call Patient is a 40 y.o. female calling regarding COVID Nurse Line and Back Pain. Assessment Concern: Having back pain, chills, body aches, fever. Her back hurts. Her throat hurts. This morning, she spit up bloody mucus. Her knees hurt She has to sit down to do her dishes. When she tried to take a shower all of her skin hurt. She fell in February and her back has hurt since then. It has been worse over last couple of months. Her knees hurt as well. The left knee hurts the worst. Her knee cracks if she gets up out of car and it hurts. COVID test at hospital was negative. Present for: COVID symptoms 1 day. Back pain got worse a few months ago. Home cares tried: Tylenol and Ibuprofen. Calling to request: The recommended disposition is See PCP Within 2 Weeks. She is sitting in the ER parking lot. Patient wants to be seen now. Patient was warm transferred to [place] at the clinic for further assistance. Patient wants to be seen. The only place to be seen would be the ED. Reason for Disposition Back pain is a chronic symptom (recurrent or ongoing AND present > 4 weeks) Protocols used: Back Ilge-MIZRB-US Care Advice Patient/Caregiver understands and will follow care advice?: Yes, able to teach back REASSURANCE AND EDUCATION: * It doesn't sound serious, but recurrent back pains deserve a complete medical check-up. USE HEAT: * Use a heat pack, heating pad, or warm wet washcloth. * Do this for 10 minutes three times a day. * This will help increase blood flow and decrease pain. * Caution: burn. Do not sleep on a heating pad. ACTIVITY: * Continue ordinary activities as much as your pain permits. Continued activity is more healing for the back than rest. * Avoid any activities that cause severe pain. * Use caution and commonsense when performing heavy lifting. Similarly, be careful during strenuous exercise. * Note: complete bed rest is unnecessary. CALL BACK IF: * Numbness or weakness occurs, or bowel/bladder problems * There are any urine symptoms or fever * You become worse documented in this encounter Plan of Treatment Upcoming Encounters Date Type Specialty Care Team Description 11/09/2021 Office Visit Family Medicine Fadia Merchant M.D. [address] [place] [address] (Andrew ramirez) 11/10/2021 Office Visit Family Medicine Zacarias Sarabia M.B.B.S., M.D. [address] [place] [address] (Andrew ramirez) 11/11/2021 Comprehensive Visit Orthopedic Surgery Ivan Deng M.D. [address] [place], [place] [phone] (Wo rk) documented as of this encounter Visit Diagnoses Not on filedocumented in this encounter Additional Health Concerns Assessment Noted Time PHQ-9 Depression Total Score: 20 09/28/2021 4:18 PM CD T documented as of this encounter Care Teams Stock Cutter Relationship Specialty Start Date End Date Fadia Merchant M.D. PCP - General Family Medicine 05/05/[address] [place] [address] documented as of this encounter
--- OUTSIDE RECORDS SUMMARY | 2021-11-07 19:43 | XMS_ITS | Encounter Summary ---
:1980 Author Organization [facility] Address [address] [place] [address] Care Team Providers Name Role Phone Fadia Merchant M.D. Primary Care Provider Encounter Details Date Type Department Care Team Description 08/28/2021 Clinical Communication Department of Zacarias Rubi Faribault I., M.B.B.SEliseo, [facility], [place] Vannessa Slaughter [address] [phone] Social History Tobacco Use Types Packs/Day Years Used Date Smoking Tobacco: Never Smokeless Tobacco: Never Sex Assigned at Date Recorded Not on file documented as of this encounter Plan of Treatment Upcoming Encounters Date Type Specialty Care Team Description 11/09/2021 Office Visit Family Fadia Dai M.D. [address] [place] [address] (Wo rk) 11/10/2021 Office Visit Family Zacarias Campbell M.BEliseoBEliseoSEliseo, [place] [address] [place] [address] (Wo rk) 11/11/2021 Comprehensive Visit Orthopedic Surgery Ivan Deng M.D. [address] [place], [place] [phone] (Wo rk) documented as of this encounter Visit Diagnoses Not on filedocumented in this encounter Additional Health Concerns Assessment Noted Time PHQ-9 Depression Total Score: 20 08/25/2021 3:59 PM CD T documented as of this encounter Care Teams Associate Merchandise Planner Relationship Specialty Start Date End Date Fadia Merchant M.D. PCP - General Family Medicine 05/05/[address] [place] [address] [place] [phone] documented as of this encounter
--- OUTSIDE RECORDS SUMMARY | 2021-11-07 19:43 | XMS_ITS | Encounter Summary ---
:1980 Author Organization [facility] Address [address] [place] [address] Care Team Providers Name Role Phone Fadia Merchant M.D. Primary Care Provider Reason for Visit Reason Comments Vomiting Encounter Details Date Type Department Care Team Description 09/10/2021 Nurse Triage Department of [facility] Mona Mclean R.N. Vomiting Medicine, [facility], in [address] [address] Social History Tobacco Use Types Packs/Day Years Used Date Smoking Tobacco: Never Smokeless Tobacco: Never Sex Assigned at Date Recorded Not on file documented as of this encounter Miscellaneous Notes Telephone Encounter - Lesa Mclean RNeha - 09/10/2021 2:41 PM CDT Chief Complaint / Reason for Call Patient is a 40 y.o. female calling regarding Vomiting. Assessment Concern: Calling as she has new onset today of nausea, vomiting and loose stools Present for: today Home cares tried: none Calling to request: to cancel her appt she had with today at 3 pm as she is ill and does not think she should come to appt and she did not recall what the appt is for The recommended disposition is Home Care. Patient was warm transferred to [facility] at the clinic for further assistance to reschedule her appt from today. Offered covid screening and possible testing but caller declined at this time Reason for Disposition SEVERE diarrhea (e.g., 7 or more times / day more than normal) Protocols used: Aiaepxjk-[id number]-GW Care Advice HOME CARE: * You should be able to treat this at home. REASSURANCE AND EDUCATION - DIARRHEA: * Diarrhea may caused by a virus ('stomach flu') or a bacteria. Diarrhea is one of the body's way ofgetting rid of germs. * Certain foods (e.g., dairy products, supplements like Ensure) can also trigger diarrhea. * In some people, the exact cause is never found. * Staying well-hydrated is the most important thing if you have diarrhea. From what you have told me, it sounds like you are not severely dehydrated at this point. * Here is some general care advice that should help. FLUID THERAPY DURING SEVERE DIARRHEA: * Drink more fluids, at least 8 to 10 cups daily. One cup equals 8 oz (240 ml). * WATER: For mild to moderate diarrhea, water is often the best liquid to drink. You should also eatsome salty foods (e.g., potato chips, pretzels, saltine crackers). This is important to make sure you are getting enough salt, sugars, and fluids to meet your body's needs. * SPORTS DRINKS: You can also drink half-strength sports drinks (e.g., Gatorade, Powerade) to help treat and prevent dehydration. Mix the sports drink half and half with water. * AVOID caffeinated beverages. Reason: Caffeine is mildly dehydrating. * AVOID alcohol beverages (e.g., beer, wine, hard liquor). * AVOID carbonated soft drinks (soda) as these can make your diarrhea worse. DIARRHEA MEDICINE - LOPERAMIDE (IMODIUM AD): * This medicine helps decrease diarrhea. It is available eqxu-itf-zfollzl (OTC) in a drugstore. * Adult dosage: 4 mg (2 capsules) is the recommended first dose. You may take an additional 2 mg (1 capsule) after each loose stool. * Maximum dosage: 16 mg per day (8 capsules). * Do not use for more than 2 days. DIARRHEA MEDICINE - BISMUTH SUBSALICYLATE (E.G., KAOPECTATE, PEPTO-BISMOL): * This medicine can help reduce diarrhea, vomiting, and abdominal cramping. It is available bmpt-peh-khkurdo (OTC) in a drugstore. * Adult dosage: Take two tablets or two tablespoons by mouth every hour (if diarrhea continues) to amaximum of 8 doses in a 24 hour period. * Do not use for more than 2 days. EXPECTED COURSE: * Viral diarrhea lasts 4 to 7 days. * It is usually worse on days 1 and 2. CALL BACK IF: * Signs of dehydration occur (e.g., no urine over 12 hours, very dry mouth, lightheaded, etc.) * Diarrhea lasts over 7 days * You become worse documented in this encounter Plan of Treatment Upcoming Encounters Date Type Specialty Care Team Description 11/09/2021 Office Visit Family Medicine Fadia Merchant M.D. [address] [place] [address] (Wo rk) 11/10/2021 Office Visit Family Medicine Zacarias Sarabia M.B.B.S., M.D. [address] [place] [address] (Wo rk) 11/11/2021 Comprehensive Visit Orthopedic Surgery Ivan Deng M.D. [address] [phone] (Wo rk) documented as of this encounter Visit Diagnoses Not on filedocumented in this encounter Additional Health Concerns Assessment Noted Time PHQ-9 Depression Total Score: 20 08/25/2021 3:59 PM CD T documented as of this encounter Care Teams Hydrology Teacher Relationship Specialty Start Date End Date Fadia Merchant M.D. PCP - General Family Medicine 05/05/21 [address] [facility] [place] [address] documented as of this encounter
--- OUTSIDE RECORDS SUMMARY | 2021-11-07 19:43 | XMS_ITS | Encounter Summary ---
:1980 Author Organization [facility] Address [address] [place] [address] Care Team Providers Name Role Phone Fadia Merchant M.D. Primary Care Provider Encounter Details Date Type Department Care Team Description 11/06/2021 Clinical Communication Department of Kalyn Becker, Medicine, [place] [facility], in [address] [address] [place], [place] [phone] [address] (Work) [phone] Social History Tobacco Use Types Packs/Day Years Used Date Smoking Tobacco: Never Smokeless Tobacco: Never Sex Assigned at Date Recorded Not on file documented as of this encounter Miscellaneous Notes Telephone Encounter - Suyapa Zamora - 11/06/2021 5:00 PM CDT Reason for Communication: Patient would like a call from nursing to discuss her medications. 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 Current Can Nursing/Provider leave a detailed message?: no Did the patient refuse triage through Nurse line? (for symptom based concerns): na Action Needed: Please call patient back Name of Medication (if relevant): unsure Please send all scheduling replies to scheduling pool. documented in this encounter Plan of Treatment Upcoming Encounters Date Type Specialty Care Team Description 11/09/2021 Office Visit Family Medicine Fadia Merchant M.D. [address] [place] [address] (Wo rk) 11/10/2021 Office Visit Family Medicine Zacarias Sarabia M.B.B.S., M.D. [address] [place] [address] (Wo rk) 11/11/2021 Comprehensive Visit Orthopedic Surgery Ivan Deng M.D. [address] [place], [place] [phone] (Wo rk) documented as of this encounter Visit Diagnoses Not on filedocumented in this encounter Additional Health Concerns Assessment Noted Time PHQ-9 Depression Total Score: 20 09/28/2021 4:18 PM CD T documented as of this encounter Care Teams Mold Changer Relationship Specialty Start Date End Date Fadia Merchant M.D. PCP - General Family Medicine 05/05/21 [address] [facility] [place] [address] documented as of this encounter
--- OUTSIDE RECORDS SUMMARY | 2021-11-07 19:44 | XMS_ITS | Encounter Summary ---
:1980 Author Organization [facility] Address [address] [place] [address] Care Team Providers Name Role Phone Fadia Merchant M.D. Primary Care Provider Encounter Details Date Type Department Care Team Description 07/30/2021 Orders Only Pharmacy Prior Auth Esha Barakat [phone] Social History Tobacco Use Types Packs/Day Years Used Date Smoking Tobacco: Never Smokeless Tobacco: Never Sex Assigned at Date Recorded Not on file documented as of this encounter Plan of Treatment Upcoming Encounters Date Type Specialty Care Team Description 11/09/2021 Office Visit Family Medicine Fadia Merchant M.D. [address] [place] [address] (Andrew ramirez) 11/10/2021 Office Visit Family Medicine Zacarias Sarabia M.B.B.S., M.D. [address] [place] [address] (Andrew ramirez) 11/11/2021 Comprehensive Visit Orthopedic Surgery Ivan Deng M.D. [address] [place], [place] [phone] (Andrew ramirez) documented as of this encounter Visit Diagnoses Not on filedocumented in this encounter Additional Health Concerns Assessment Noted Time PHQ-9 Depression Total Score: 17 07/29/2021 9:47 AM CD T documented as of this encounter Care Teams Repair Operator Relationship Specialty Start Date End Date Ayuob, Mysoon M, M.D. PCP - General Family Medicine 05/05/[address] [place] [address] [place] [phone] documented as of this encounter
--- OUTSIDE RECORDS SUMMARY | 2021-11-07 19:44 | XMS_ITS | Encounter Summary ---
:1980 Author Organization [facility] Address [address] [place] [address] Care Team Providers Name Role Phone Fadia Merchant M.D. Primary Care Provider Reason for Visit Reason Comments Results Encounter Details Date Type Department Care Team Description 07/07/2021 Clinical Communication Department of [facility] Kalyn Merchant, Results Medicine, Kasandra Hurd [facility], [address] [address] [place], [place] [phone] (Work) [phone] Social History Tobacco Use Types Packs/Day Years Used Date Smoking Tobacco: Never Smokeless Tobacco: Never Sex Assigned at Date Recorded Not on file documented as of this encounter Miscellaneous Notes Telephone Encounter - Viktoria Card - 07/08/2021 9:11 AM CDT The patient called requesting results of their test. The results were communicated to the patient asnegative. Telephone Encounter - Charmaine Pabon - 07/07/2021 9:38 AM CDT Left message for patient to return call to clinic. Does the patient need to speak to nursing? no Action needed: patient needs to be informed of the following information per Dr. Mayur M.D. Stress test is negative. documented in this encounter Plan of Treatment Upcoming Encounters Date Type Specialty Care Team Description 11/09/2021 Office Visit Family Medicine Fadia Merchant M.D. [address] [place] [address] (Wo rk) 11/10/2021 Office Visit Family Medicine Zacarias Sarabia M.B.B.S., M.D. [address] [place] [address] (Wo rk) 11/11/2021 Comprehensive Visit Orthopedic Surgery Ivan Deng M.D. [address] [place], [place] [phone] (Wo rk) documented as of this encounter Visit Diagnoses Not on filedocumented in this encounter Additional Health Concerns Assessment Noted Time PHQ-9 Depression Total Score: 21 05/22/2021 2:05 PM CD T documented as of this encounter Care Teams Cofferdam Construction Supervisor Relationship Specialty Start Date End Date Fadia Merchant M.D. PCP - General Family Medicine 05/05/21 [address] [place] [address] documented as of this encounter
--- OUTSIDE RECORDS SUMMARY | 2021-11-07 19:44 | XMS_ITS | Encounter Summary ---
:1980 Author Organization [facility] Address [address] [place] [address] Care Team Providers Name Role Phone Fadia Merchant M.D. Primary Care Provider Encounter Details Date Type Department Care Team Description 07/30/2021 Orders Only Pharmacy Prior Auth RO Audrey Pulido [phone] Social History Tobacco Use Types Packs/Day Years Used Date Smoking Tobacco: Never Smokeless Tobacco: Never Sex Assigned at Date Recorded Not on file documented as of this encounter Plan of Treatment Upcoming Encounters Date Type Specialty Care Team Description 11/09/2021 Office Visit Family Medicine Fadia Merchant M.D. [address] [place] [address] (Andrew ramirez) 11/10/2021 Office Visit Family Medicine Zacarias Sarabia M.B.B.S., M.D. [address] [place] [address] (Andrew ramirez) 11/11/2021 Comprehensive Visit Orthopedic Surgery Ivan Deng M.D. [address] [place], [place] [phone] (Andrew ramirez) documented as of this encounter Visit Diagnoses Not on filedocumented in this encounter Additional Health Concerns Assessment Noted Time PHQ-9 Depression Total Score: 17 07/29/2021 9:47 AM CD T documented as of this encounter Care Teams Gas Burner Operator Relationship Specialty Start Date End Date Fadia Merchant M.D. PCP - General Family Medicine 05/05/[address] [place] [address] [place] [address] documented as of this encounter
--- OUTSIDE RECORDS SUMMARY | 2021-11-07 19:44 | XMS_ITS | Encounter Summary ---
:1980 Author Organization [facility] Address [address] [place] [address] Care Team Providers Name Role Phone Shreya Dean M.D. Primary Care Provider Reason for Visit Reason Onset Date Comments CPAP Supplies 02/16/2018 Faxed to the [facility] Encounter Details Date Type Department Care Team Description 02/16/2018 Clinical Communication Department of WERO Galarza Neurology in [place] (F[place]ed to the [place] [facility] [address] [facility]) [address] [place], [place] [phone] Social History Tobacco Use Types Packs/Day Years Used Date Smoking Tobacco: Never Smokeless Tobacco: Never Sex Assigned at Date Recorded Not on file documented as of this encounter Miscellaneous Notes Telephone Encounter - Kassie Galarza L.PEliseoNEliseo - 02/16/2018 11:54 AM LABORATORY GENETICIST Script for the CPAP supplies faxed to the [facility]. RATORY GENETICIST documented in this encounter Plan of Treatment Upcoming Encounters Date Type Specialty Care Team Description 11/09/2021 Office Visit Family Medicine Fadia Merchant M.D. [address] [place] [phone] (Wo rk) 11/10/2021 Office Visit Family Medicine Zacarias Sarabia M.B.B.S., M.D. [address] [place] [phone] (Wo rk) 11/11/2021 Comprehensive Visit Orthopedic Surgery Ivan Deng M.D. [address], [place] [phone] (Andrew rk) documented as of this encounter Visit Diagnoses Not on filedocumented in this encounter Additional Health Concerns Assessment Noted Time PHQ-9 Depression Total Score: 9 12/26/2017 3:39 PM LABORATORY GENETICIST documented as of this encounter Care Teams Textile Conservator Relationship Specialty Start Date End Date Shreya Dean M.D. PCP - General Family Medicine 12/14/17 01/07/19 documented as of this encounter
--- OUTSIDE RECORDS SUMMARY | 2021-11-07 19:44 | XMS_ITS | Encounter Summary ---
:1980 Author Organization [facility] Address [address] [place] [address] Care Team Providers Name Role Phone Fadia Merchant M.D. Primary Care Provider Encounter Details Date Type Department Care Team Description 08/06/2021 Orders Only Pharmacy Prior Auth RO HarmonPhyllis molina [phone] Social History Tobacco Use Types Packs/Day Years Used Date Smoking Tobacco: Never Smokeless Tobacco: Never Sex Assigned at Date Recorded Not on file documented as of this encounter Plan of Treatment Upcoming Encounters Date Type Specialty Care Team Description 11/09/2021 Office Visit Family Medicine Fadia Merchant M.D. [address] [place] [address] (Andrew ramirez) 11/10/2021 Office Visit Family Medicine Zacarias Sarabia M.B.B.S., M.D. [address] [place] [address] (Andrew ramirez) 11/11/2021 Comprehensive Visit Orthopedic Surgery Ivan Deng M.D. [address] [place], [place] [phone] (Andrew ramirez) documented as of this encounter Visit Diagnoses Not on filedocumented in this encounter Additional Health Concerns Assessment Noted Time PHQ-9 Depression Total Score: 17 07/29/2021 9:47 AM CD T documented as of this encounter Care Teams Attendance Officer Relationship Specialty Start Date End Date Fadia Merchant M.D. PCP - General Family Medicine 05/05/[address] [place] [address] MARIBETH Slaughter [phone] documented as of this encounter
--- OUTSIDE RECORDS SUMMARY | 2021-11-07 19:44 | XMS_ITS | Encounter Summary ---
:1980 Author Organization [facility] Address [address] [place] [address] Care Team Providers Name Role Phone Fadia Merchant M.D. Primary Care Provider Encounter Details Date Type Department Care Team Description 08/05/2021 Clinical Communication Department of Kalyn Becker, Medicine, Kasandra Hurd [facility], in [address] [address] [place], [place] [phone] [address] (Work) [phone] Social History Tobacco Use Types Packs/Day Years Used Date Smoking Tobacco: Never Smokeless Tobacco: Never Sex Assigned at Date Recorded Not on file documented as of this encounter Miscellaneous Notes Telephone Encounter - Corie Bo - 08/06/2021 2:42 PM CDT Reason for Communication: Gerry from [facility] [employer] called regarding the appeal that patient made for the medication Wegovy. Gerry would like to know why provider is skipping the preferred product, Phentermine and if there is a clinical reason for not using this medication Current Can Nursing/Provider leave a detailed message?: No Did the patient refuse triage through Nurse line? (for symptom based concerns): Action Needed: Please call Gerry back Name of Medication (if relevant): Wegovy Please send all scheduling replies to scheduling pool. Telephone Encounter - Gay Pitt - 08/05/2021 2:50 PM CDT Reason for Communication: Pt calling in. She said the doctor prescribed med July 08 and it was deniedby insurance. She called insurance and was told that if she does not take a certain medicaton, she is not eligible to take this new medicaton. Pt said the medicaton that was denied is to help her lose weight. Pt said she made an insurance appeal. Current Can Nursing/Provider leave a detailed message?: Yes Did the patient refuse triage through Nurse line? (for symptom based concerns): Action Needed: Please call pt to advise Name of Medication (if relevant): Please send all scheduling replies to scheduling pool. documented in this encounter Plan of Treatment Upcoming Encounters Date Type Specialty Care Team Description 11/09/2021 Office Visit Family Medicine Fadia Merchant M.D. [address] [place] [address] (Wo rk) 11/10/2021 Office Visit Family Medicine Zacarias Sarabia M.B.B.S., M.D. [address] [place] [address] (Wo rk) 11/11/2021 Comprehensive Visit Orthopedic Surgery Ivan Deng M.D. [address] [place], [place] [phone] (Wo rk) documented as of this encounter Visit Diagnoses Not on filedocumented in this encounter Additional Health Concerns Assessment Noted Time PHQ-9 Depression Total Score: 17 07/29/2021 9:47 AM CD T documented as of this encounter Care Teams Jitney Driver Relationship Specialty Start Date End Date Fadia Merchant M.D. PCP - General Family Medicine 05/05/[address] [place] [address] documented as of this encounter
--- OUTSIDE RECORDS SUMMARY | 2021-11-07 19:44 | XMS_ITS | Encounter Summary ---
:1980 Author Organization [facility] Address [address] [place] [address] Care Team Providers Name Role Phone Shreya Dean M.D. Primary Care Provider Reason for Visit Reason Onset Date Comments Medical Information 03/30/2018 Encounter Details Date Type Department Care Team Description 03/30/2018 Clinical Communication Department of [facility] Family MedicineNikos M.D. [facility], [address] in [facility] [address] [address] [facility] [phone] [place], [place] (Work) [phone] Social History Tobacco Use Types Packs/Day Years Used Date Smoking Tobacco: Never Smokeless Tobacco: Never Sex Assigned at Date Recorded Not on file documented as of this encounter Miscellaneous Notes Telephone Encounter - Kassie Galarza L.PEliseoN. - 03/30/2018 11:09 AM SUSTAINABILITY ENGINEER Diagnostic report of sleep study faxed to [facility] at fax [phone]. AINABILITY ENGINEER Telephone Encounter - Geovanny Magallon - 03/30/2018 10:20 AM CST Reason for Communication: [facility] called and they got everything but they need the complete sleep study report. Please advise Current Phone Number: fax number [phone]/ phone [phone] Can Nursing/Provider leave a detailed message: Did the patient refuse triage through Nurse line? (for symptom based concerns) Action Needed: Name of Medication (if relevant): Fax [phone] AINABILITY ENGINEER documented in this encounter Plan of Treatment Upcoming Encounters Date Type Specialty Care Team Description 11/09/2021 Office Visit Family Medicine Fadia Merchant M.D. [address] [place] [address] (Wo rk) 11/10/2021 Office Visit Family Medicine Zacarias Saarbia M.B.B.S., M.D. [address] [place] [address] (Wo rk) 11/11/2021 Comprehensive Visit Orthopedic Surgery Ivan Deng M.D. [address] [phone] (Wo rk) documented as of this encounter Visit Diagnoses Not on filedocumented in this encounter Additional Health Concerns Assessment Noted Time PHQ-9 Depression Total Score: 9 12/26/2017 3:39 PM SUSTAINABILITY ENGINEER documented as of this encounter Care Teams Mud Mill Tender Relationship Specialty Start Date End Date Shreya Dean M.D. PCP - General Family Medicine 12/14/17 01/07/19 documented as of this encounter
--- OUTSIDE RECORDS SUMMARY | 2021-11-07 19:44 | XMS_ITS | Encounter Summary ---
:1980 Author Organization [facility] Address [address] [place] [address] Care Team Providers Name Role Phone Fadia Merchant M.D. 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 [facility] Vannessa Pena [address] [place] [address] Referral ID Status Reason Start Date Expiration Date Visits Requ ested Visits Authorized [id number] Closed 05/22/2021 05/22/2022 1 1 Reason for Visit Reason Comments Back Pain Fell the end of March - h as tailbone, lower back, and knee pain since Depression Appointment Request (Routine) - Closed Specialty Diagnoses / Procedures Referred By Contact Refer red To Contact Family Medicine Referral ID Status Reason Start Date Expiration Date Visits Requ ested Visits Authorized [id number] Closed 05/20/2021 05/20/2022 1 1 Encounter Details Date Type Department Care Team Description 05/22/2021 Office Visit Department of Family Zacarias Sarabia ession 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 Psychotic Features (HCC) (Primary Dx); Medicine, Becky Knox, Morbid Obesity Body Mass Index 50.0-59.9 Adult ([facility]); Clinic, in Vannessa Cobb Apnea Sleep Obstructive; [place] [address] [facility] Pain Low Back Chronic; [address] [place] PreDiabetes MARIBETH COBB [phone] Social History Tobacco Use Types Packs/Day Years Used Date Smoking Tobacco: Never Smokeless Tobacco: Never Sex Assigned at Date Recorded Not on file documented as of this encounter Last Filed Vital Signs Vital Sign Reading Time Taken Comments Blood Pressure 132/84 05/22/2021 2:08 PM CDT Pulse 101 05/22/2021 2:08 PM CDT Temperature 36 ??C (96.8 ??F) 05/22/2021 2:08 PM CDT Respiratory Rate 16 05/22/2021 2:08 PM CDT Oxygen Saturation - - Inhaled Oxygen Concentration - - Weight 170 kg (374 lb 12.5 oz) 05/22/2021 2:08 PM CDT Height 171 cm (5' 7.32) 05/22/2021 2:08 PM CDT Body Mass Index 58.14 05/22/2021 2:08 PM CDT documented in this encounter Progress Notes Zacarias Sarabia M.B.B.S., M.D. - 05/22/2021 2:30 PM CDT SUBJECTIVE CHIEF COMPLAINT / REASON FOR VISIT Narinder Lucas is a 40 y.o. female who presents for evaluation of Back Pain (Fell the end of March - has tailbone, lower back, and knee pain since/) and Depression. HISTORY OF PRESENT ILLNESS Narinder Lucas is a 40-year-old female with multiple comorbidities here for chronic low back pain. Patient reports a history of depression. She has been on multiple medications including Wellbutrin,Celexa, Pristiq and duloxetine. She is currently on trazodone. PHQ-9 score 21. She denies suicidal or homicidal ideations. She reports that her depression is debilitating. She reports apathy and limited energy. Patient's symptoms are exacerbated by had limited mobility. She has gained over 230 lb in the last 10 years. She reports chronic back pain which is worse with standing or trying to walk. She finds it hard to ambulate or carry out her day-to-day activities. Standing to do the dishes or vacuum is very difficult for her. Several weeks ago, she fell on ice and has had pain over her tailbone since. Patient has a history of sleep apnea but admits being inconsistent with a CPAP machine. The following portions of the patient's history were reviewed and updated as appropriate: allergies,current medications, family history, medical history, social history, surgical history and problem list. REVIEW OF SYSTEMS Pertinent items are noted in HPI. OBJECTIVE BP 132/84 (BP Location: Right arm, Patient Position: Sitting, Cuff Size: Large) Pulse 101 Temp 36 ??C (Temporal) Resp 16 Ht 171 cm Wt (!) 170 kg BMI 58.14 kg/m?? PHYSICAL EXAM General Appearance: alert, no distress, cooperative, crying. Skin: skin color, texture, turgor normal, no suspicious rashes or lesions. Head: normocephalic, no masses, lesions, tenderness or abnormalities. Eyes: Anicteric sclera. Pupils are equally round and reactive to light. Extraocular movements are intact. Musculoskeletal: Range of motion normal in hips, knees, shoulders, and spine. Neurologic: Reflexes normal and symmetric. Sensation grossly intact.. 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 Patient is morbidly obese with irregular cycles. Her chart reveals borderline elevated A1c in 2018. She likely has insulin resistance. Today, we discussed weight loss strategies and I believe weight loss surgery will be appropriate forher. Her pain is likely made worse by deconditioning. She has been unsuccessful with physical therapy in the past. Today will evaluate with a CMP and an A1c. I will also start her on fluoxetine 20 mg daily and ramp it up to 40 mg daily over 3 weeks. She has been on multiple antidepressants and fill therapy due to noncompliance and intolerable side effects. For now, will manage her pain with a combination of warm compresses, muscle relaxants, Tylenol and ibuprofen. We also discussed the need to be consistent with her CPAP. She will follow-up with me in 1 month. documented in this encounter Plan of Treatment Upcoming Encounters Date Type Specialty Care Team Description 11/09/2021 Office Visit Family Medicine Fadia Merchant M.D. [address] [place] [address] (Wo rk) 11/10/2021 Office Visit Family Medicine Zacarias Sarabia M.B.B.S., M.D. [address] [place] [address] (Wo rk) 11/11/2021 Comprehensive Visit Orthopedic Surgery Ivan Deng M.D. [address] [place], [place] [phone] (Wo rk) Scheduled Referrals Name Type Priority Associated Diagnoses Order [facility] Family Medicine Outpatient Referral Routine Depression Major E xpected: office visit Single Episode 06/21/2021 (clinic) Severe Without (Approximate) , Psychotic Features Expires: (HCC) 08/21/2022 Morbid Obesity Body Mass Index 50.0-59.9 Adult (HCC) Pain Low Back Chronic documented as of this encounter Results Comprehensive Metabolic Panel (05/22/2021 3:14 PM CDT) P athologist Signature Potassium, P 4.4 3.6 - 5.2 05/22/2021 [place] mmol/L 6:17 PM CDT Sodium, P 139 135 - 145 05/22/2021 [place] mmol/L 6:17 PM CDT Chloride, P 103 98 - 107 05/22/2021 [place] mmol/L 6:17 PM CDT Bicarbonate, P 25 22 - 29 05/22/2021 [place] mmol/L 6:17 PM CDT Anion Gap, P 11 7 - 15 05/22/2021 [place] 6:17 PM CDT BUN (Blood Urea 11 6 - 21 05/22/2021 [place] Nitrogen), P mg/dL 6:17 PM CDT Creatinine 0.60 0.59 - 05/22/2021 [place] 1.04 mg/dL 6:17 PM CDT eGFR-Black/Afric >90 >=60 05/22/2021 [place] an Moroccan mL/min/BSA 6:17 PM CDT Comment: ----ADDITIONAL INFORMATION---- Estimated GFR calculated using the 2009 CKD_EPI creatinine equation. eGFR Non-Black/ >90 >=60 mL/min/BSA 05/22/2021 6:17 PM CDT [place] Comment: ----ADDITIONAL INFORMATION---- Estimated GFR calculated using the 2009 CKD_EPI creatinine equation. Calcium, Total, P 9.0 8.6 - 10.0 mg/dL 05/22/2021 6:17 PM CDT [place] Glucose, P 112 70 - 140 mg/dL 05/22/2021 6:17 PM CDT O KATIE Protein, Total, P 7.2 6.3 - 7.9 g/dL 05/22/2021 6:17 P M CDT [place] Albumin, P 4.2 3.5 - 5.0 g/dL 05/22/2021 6:17 PM CDT O KATIE Aspartate Aminotransferase 26 8 - 43 U/L 05/22/2021 6 :17 PM CDT [place] (AST), P Alkaline Phosphatase, P 60 35 - 104 U/L 05/22/2021 6: 17 PM CDT [place] Alanine Aminotransferase (ALT), 35 7 - 45 U/L 022 6:17 PM CDT [place] P Bilirubin, Total, P 0.3 <=1.2 mg/dL 05/22/2021 6:17 PM CDT [place] Specimen Anatomical Collection Method Collection Time Receive d Time (Source) Location / / Volume Laterality Blood (Blood, 05/22/2021 3:14 PM 05/23/19 22 5:52 Venous) CDT PM CDT Zacarias Pena M.D. LAB BLOOD ADD-ON Performing Organization Address City/State/ZIP Code Phon e Number [facility]- [address] [place] [address] [facility] [place] [address] System in [place] [address] (ABNORMAL) Hemoglobin A1c (05/22/2021 3:14 PM CDT) P athologist Signature Hemoglobin A1c, 6.2 (H) 4.2 - 5.6 05/22/2021 [place] B % 6:19 PM CDT Comment: Hemoglobin A1c values of 5.7-6.4 percent indicate an increased risk for developing diabetes marjorie calloway. In diabetic patients, HbA1c goals should be discussed with healthcare provider. Specimen Anatomical Collection Method Collection Time Receive d Time (Source) Location / / Volume Laterality Blood (Blood, 05/22/2021 3:14 PM 05/23/19 5:52 Venous) CDT PM CDT Zacarias Pena M.D. LAB BLOOD ADD-ON Performing Organization Address City/State/ZIP Code Phon e Number [facility]- [address] [place] [address] [facility] [place] [address] System in [place] [address] documented in this encounter Visit Diagnoses Diagnosis Depression Major Single Episode Severe W ithout Psychotic Features (HCC) - Primary Morbid Obesity Body Mass Index 50.0-59.9 Adult (HCC) Apnea Sleep Obstructive Pain Low Back Chronic PreDiabetes Pain Knee Left - Primary documented in this encounter Additional Health Concerns Assessment Noted Time PHQ-9 Depression Total Score: 21 05/22/2021 2:05 PM CD T documented as of this encounter Care Teams Noise Tester Relationship Specialty Start Date End Date Fadia Merchant M.D. PCP - General Family Medicine 05/05/[address] [place] [address] MARIBETH Larkin [phone] documented as of this encounter
--- OUTSIDE RECORDS SUMMARY | 2021-11-07 19:44 | XMS_ITS | Encounter Summary ---
:1980 Author Organization [facility] Address [address] [place] [address] Care Team Providers Name Role Phone Zacarias Sarabia M.D. Primary Care Provider [phone] Encounter Details Date Type Department Care Team Description 01/01/2021 Orders Only [facility] PCP [facility] Zacarias Sarabia M.B.BDivya, [place] [address] [place], [place] [phone] (Andrew ramirez) Social History Tobacco Use Types Packs/Day Years Used Date Smoking Tobacco: Never Smokeless Tobacco: Never Sex Assigned at Date Recorded Not on file documented as of this encounter Plan of Treatment Upcoming Encounters Date Type Specialty Care Team Description 11/09/2021 Office Visit Family Medicine Fadia Merchant M.D. [address] [place] [address] (Andrew ramirze) 11/10/2021 Office Visit Family Medicine Zacarias Sarabia M.BEliseoBEliseoSVannessa Gomes [address] [place] [address] (Andrew ramirez) 11/11/2021 Comprehensive Visit Orthopedic Surgery Ivan Deng M.D. [address] [place], [place] [address] (Andrew ramirez) documented as of this encounter Visit Diagnoses Not on filedocumented in this encounter Additional Health Concerns Assessment Noted Time PHQ-9 Depression Total Score: 9 12/26/2017 3:39 PM SAVINGS TELLER documented as of this encounter Care Teams Manager Transit Relationship Specialty Start Date End Date Zacarias Sarabia M.B.B.S., M.D. PCP - General 01/08/19 04/05/[address] [place], [place] [address]MARIBETH Mohamud [phone] documented as of this encounter
--- OUTSIDE RECORDS SUMMARY | 2021-11-07 19:44 | XMS_ITS | Encounter Summary ---
:1980 Author Organization [facility] Address [address] [place] [address] Care Team Providers Name Role Phone Fadia Merchant M.D. Primary Care Provider Encounter Details Date Type Department Care Team Description 05/27/2021 Orders Only Pharmacy Prior Auth [place] Charlenetricia Yumiko M [phone] Social History Tobacco Use Types Packs/Day Years Used Date Smoking Tobacco: Never Smokeless Tobacco: Never Sex Assigned at Date Recorded Not on file documented as of this encounter Plan of Treatment Upcoming Encounters Date Type Specialty Care Team Description 11/09/2021 Office Visit Family Medicine Fadia Merchant M.D. [address] [place] [address] (Andrew ramirez) 11/10/2021 Office Visit Family Medicine Zacarias Sarabia M.B.B.S., M.D. [address] [place] [address] (Andrew ramirez) 11/11/2021 Comprehensive Visit Orthopedic Surgery Ivan Deng M.D. [address] [place], [place] [phone] (Andrew ramirez) documented as of this encounter Visit Diagnoses Not on filedocumented in this encounter Additional Health Concerns Assessment Noted Time PHQ-9 Depression Total Score: 21 05/22/2021 2:05 PM CD T documented as of this encounter Care Teams Food Service Agent Relationship Specialty Start Date End Date Ayuob, Mysoon M, M.D. PCP - General Family Medicine 05/05/[address] [place] [address] [place] [phone] documented as of this encounter
--- OUTSIDE RECORDS SUMMARY | 2021-11-07 19:44 | XMS_ITS | Encounter Summary ---
:1980 Author Organization [facility] Address [address] [place] [address] Care Team Providers Name Role Phone Fadia Merchant M.D. Primary Care Provider Encounter Details Date Type Department Care Team Description 05/22/2021 Hospital Encounter Department of Zacarias Sarabia; Laboratory Medicine I., M.B.B.S., Morbid Obesity Body Mass Index 50.0-59.9 Adult ([facility]) in [place] [address] [facility] [address] [place] [phone] Social History Tobacco Use Types Packs/Day Years [...] Units total) by mouth once a week. cholecalciferol, vitamin Take 25 mcg by 0 022 07/14/2021 D3, 25 mcg (1,000 Unit) mouth. tablet cyclobenzaprine Take 1 tablet (10 30 tablet 0 05/22/2021 (FLEXERIL) 10 mg mg total) by mouth tabletIndications: Pain at bedtime as Low Back Chronic needed for muscle spasms. FLUoxetine (PROzac) 10 mg Take 2 capsules 154 capsule 0 05/0805/29/2021 capsuleIndications: (20 mg total) by Depression Major Single mouth daily for 14 Episode Severe Without days, THEN 3 Psychotic Features (HCC) capsules (30 mg total) daily for 14 days, THEN 4 capsules (40 mg total) daily for 21 days. traZODone (DESYREL) 50 mg Take 1 tablet (50 30 tablet 0 06/202108/25/2021 tablet mg total) by mouth at bedtime as needed for sleep. documented as of this encounter Miscellaneous Notes Result Encounter Note - Zacarias Sarabia M.B.B.S., M.D. - 05/25/2021 8:05 AM CDT A1c is elevated but does not meet criteria for full-blown diabetes. It is important to maintain a regular exercise program and a diet low in carbohydrates and simple sugars. Regular exercise will reduce insulin resistance helping to lower A1c. documented in this encounter Plan of Treatment Upcoming Encounters Date Type Specialty Care Team Description 11/09/2021 Office Visit Family Medicine Fadia Merchant M.D. [address] [place] [address] (Wo james) 11/10/2021 Office Visit Family Medicine Zacarias Sarabia M.B.B.S., M.D. [address] [place] [address] (Wo rk) 11/11/2021 Comprehensive Visit Orthopedic Surgery Ivan Deng M.D. [address] [place], [place] [phone] (Wo rk) documented as of this encounter Procedures Procedure Name Priority Date/Time Associated Comments Diagnosis HEMOGLOBIN A1C, B Routine 05/22/2021 3:14 PM PreDiabetes Resu lts for this CDT procedure are i n the results section. COMPREHENSIVE Routine 05/22/2021 3:14 PM Morbid Obesity Body R esults for this METABOLIC PANEL, S/P CDT Mass Index procedu re are in 50.0-59.9 Adult the results (HCC) section. PreDiabetes documented in this encounter Results Comprehensive Metabolic Panel (05/22/2021 [...] CDT eGFR-Black/Afric >90 >=60 05/22/2021 [place] an Pakistani mL/min/BSA 6:17 PM CDT Comment: ----ADDITIONAL INFORMATION---- [...] M.D. LAB BLOOD ADD-ON Performing Organization Address City/[facility]/ZIP Code Phon e Number [facility]- [address] [place] [address] [place] [address] System in [place] [address] (ABNORMAL) Hemoglobin A1c (05/22/2021 3:14 PM CDT) P athologist Signature Hemoglobin A1c, 6.2 (H) 4.2 - 5.6 05/22/2021 [place] B % 6:19 PM CDT Comment: Hemoglobin A1c values of 5.7-6.4 percent indicate an increased risk for developing diabetes m anyaitus. In diabetic patients, HbA1c goals should be discussed with healthcare provider. Specimen Anatomical Collection Method Collection Time Receive d Time (Source) Location / / Volume Laterality Blood (Blood, 05/22/2021 3:14 PM 05/23/19 22 5:52 Venous) CDT PM CDT Zacarias Pena M.D. LAB BLOOD ADD-ON Performing Organization Address City/State/ZIP Code Phon e Number [facility]- [address] [place] [place] [address] [place] [address] System in [place] [address] [facility] documented in this encounter Visit Diagnoses Diagnosis PreDiabetes Morbid Obesity Body Mass Index 50.0-59.9 Adult (HCC) Pain Knee Left - Primary documented in this encounter Additional Health Concerns Assessment Noted Time PHQ-9 Depression Total Score: 05/22/2021 2:05 PM CD T documented as of this encounter Care Teams Epoxy Fabrication Supervisor Relationship Specialty Start Date End Date Fadia Merchant M.D. PCP - General Family Medicine 05/05/[address] [place] [phone] documented as of this encounter
--- OUTSIDE RECORDS SUMMARY | 2021-11-07 19:44 | XMS_ITS | Encounter Summary ---
:1980 Author Organization [facility] Address [address] [place] [address] Care Team Providers Name Role Phone Fadia Merchant M.D. Primary Care Provider Encounter Details Date Type Department Care Team Description 07/17/2021 Orders Only Pharmacy Prior Auth RO Janelle Orozco [phone] Social History Tobacco Use Types Packs/Day Years Used Date Smoking Tobacco: Never Smokeless Tobacco: Never Sex Assigned at Date Recorded Not on file documented as of this encounter Plan of Treatment Upcoming Encounters Date Type Specialty Care Team Description 11/09/2021 Office Visit Family Medicine Fadia Merchant M.D. [address] [place] [phone] (Andrew ramirez) 11/10/2021 Office Visit Family Medicine Zacarias Sarabia M.B.B.S., M.D. [address] [place] [address] (Andrew ramirez) 11/11/2021 Comprehensive Visit Orthopedic Surgery Ivan Deng M.D. [address] [place] [phone] (Andrew ramirez) documented as of this encounter Visit Diagnoses Not on filedocumented in this encounter Additional Health Concerns Assessment Noted Time PHQ-9 Depression Total Score: 15 07/14/2021 3:46 PM CD T documented as of this encounter Care Teams Animal Pathologist Relationship Specialty Start Date End Date Ayuob, Mysoon M, M.D. PCP - General Family Medicine 05/05/[address] [place] [address] [place] [phone] documented as of this encounter
--- OUTSIDE RECORDS SUMMARY | 2021-11-07 19:44 | XMS_ITS | Encounter Summary ---
:1980 Author Organization [facility] Address [address] [place] [address] Care Team Providers Name Role Phone Fadia Merchant M.D. Primary Care Provider Encounter Details Date Type Department Care Team Description 07/22/2021 Orders Only Pharmacy Prior Auth RO La Chandra [phone] Social History Tobacco Use Types Packs/Day Years Used Date Smoking Tobacco: Never Smokeless Tobacco: Never Sex Assigned at Date Recorded Not on file documented as of this encounter Plan of Treatment Upcoming Encounters Date Type Specialty Care Team Description 11/09/2021 Office Visit Family Medicine Fadia Merchant M.D. [address] [place] [phone] (Andrew ramirez) 11/10/2021 Office Visit Family Medicine Zacarias Sarabia M.B.B.S., M.D. [address] [place] [phone] (Andrew ramirez) 11/11/2021 Comprehensive Visit Orthopedic Surgery Ivan Deng M.D. [address] [place], [place] [phone] (Andrew ramirez) documented as of this encounter Visit Diagnoses Not on filedocumented in this encounter Additional Health Concerns Assessment Noted Time PHQ-9 Depression Total Score: 15 07/14/2021 3:46 PM CD T documented as of this encounter Care Teams Rn Acute Relationship Specialty Start Date End Date Fadia Merchant M.D. PCP - General Family Medicine 05/05/[address] [place] [address] [place] [phone] documented as of this encounter
--- OUTSIDE RECORDS SUMMARY | 2021-11-07 19:44 | XMS_ITS | Encounter Summary ---
:1980 Author Organization [facility] Address [address] [place] [address] Care Team Providers Name Role Phone Elsewhere, Pcp Primary Care Provider Unavailable Encounter Details Date Type Department Care Team Description 04/15/2021 Clinical Communication Department of Bryan Hoyos, Obstetrics and [facility] Gynecology in [address] [place] [phone] [place], [place] [phone] (Work) [phone] Social History Tobacco Use Types Packs/Day Years Used Date Smoking Tobacco: Never Smokeless Tobacco: Never Sex Assigned at Date Recorded Not on file documented as of this encounter Miscellaneous Notes Telephone Encounter - Barb Huynh R.N. - 04/17/2021 11:35 AM CST ASSESSMENT NOB scheduled 04/22/20.She had question about PNV-they were out of stock. She will check back today. She also states she has noticed a decreased appetite and only eating once/twice per day. Sensitivity to smell and has not been cooking- eating out. PLAN Encouraged to get vitamin and start this. Discussed small, frequent meals/snacks even when not hungry.Encourage frequent fluids. Encouraged healthy choices when eating out. Encouraged to call with concerns. Disposition/Recommendation: recommended continue engagement in self-management activities. Information/Education: patient/caller able to teach back. Caller agreeable to plan of care: yes. The following references were used: nursing clinical judgement. RVISOR FIREARMS Telephone Encounter - Lubna Chauhan - 04/15/2021 11:48 AM CST Reason for Communication: Patient has questions about what to do since she is not hungry or thirsty and does have some nausea. Please call patient and you can leave a voicemail answer. Current Can Nursing/Provider leave a detailed message?: yes Did the patient refuse triage through Nurse line? (for symptom based concerns): Action Needed: please call patient back Name of Medication (if relevant): Please send all scheduling replies to scheduling pool. RVISOR FIREARMS documented in this encounter Plan of Treatment Upcoming Encounters Date Type Specialty Care Team Description 11/09/2021 Office Visit Family Medicine Fadia Merchant M.D. [address] [place] [phone] (Wo james) 11/10/2021 Office Visit Family Medicine Zacarias Sarabia M.B.B.S., M.D. [address] [place] [phone] (Wo james) 11/11/2021 Comprehensive Visit Orthopedic Surgery Ivan Deng M.D. [address] [phone] (Andrew ramirez) documented as of this encounter Visit Diagnoses Not on filedocumented in this encounter Additional Health Concerns Assessment Noted Time PHQ-9 Depression Total Score: 9 12/26/2017 3:39 PM SUPERVISOR FIREARMS documented as of this encounter Care Teams Smelter Operator Relationship Specialty Start Date End Date Elsewhere, Pcp PCP - General Internal Medicine 04/06/21 05/04/21 documented as of this encounter
--- OUTSIDE RECORDS SUMMARY | 2021-11-07 19:44 | XMS_ITS | Encounter Summary ---
:1980 Author Organization [facility] Address [address] [place] [address] Care Team Providers Name Role Phone Fadia Merchant M.D. Primary Care Provider Encounter Details Date Type Department Care Team Description 07/17/2021 Orders Only Pharmacy Prior Auth [place] Catalina Rios [phone] Social History Tobacco Use Types Packs/Day Years Used Date Smoking Tobacco: Never Smokeless Tobacco: Never Sex Assigned at Date Recorded Not on file documented as of this encounter Plan of Treatment Upcoming Encounters Date Type Specialty Care Team Description 11/09/2021 Office Visit Family Medicine Fadia Merchant M.D. [address] [place] [phone] (Andrew ramirez) 11/10/2021 Office Visit Family Medicine Zacarias Sarabia M.B.B.S., M.D. [address] [place] [phone] (Andrew ramirez) 11/11/2021 Comprehensive Visit Orthopedic Surgery Ivan Deng M.D. [address] [place], [place] [phone] (Andrew ramirez) documented as of this encounter Visit Diagnoses Not on filedocumented in this encounter Additional Health Concerns Assessment Noted Time PHQ-9 Depression Total Score: 15 07/14/2021 3:46 PM CD T documented as of this encounter Care Teams Hospital Social Worker Relationship Specialty Start Date End Date Ayuob, Mysoon M, M.D. PCP - General Family Medicine 05/05/[address] [place] [address] [place] [phone] documented as of this encounter
--- OUTSIDE RECORDS SUMMARY | 2021-11-07 19:44 | XMS_ITS | Encounter Summary ---
:1980 Author Organization [facility] Address [address] [place] [address] Care Team Providers Name Role Phone Elsewhere, Pcp Primary Care Provider Unavailable Encounter Details Date Type Department Care Team Description 04/22/2021 Hospital Encounter Department of Karol Salas Laboratory Medicine in [place], [place] [address] [place] [phone] Social History Tobacco Use Types Packs/Day Years Used Date Smoking Tobacco: Never Smokeless Tobacco: Never Sex Assigned at Date Recorded Not on file documented as of this encounter Medications at Time of Discharge Medication Sig Dispensed Refills Start Date End Date acetaminophen (TYLENOL) 0 04/02/2021 500 mg tablet acetaminophen-codeine TAKE 1 TABLET BY 0 04/18/19 22 05/12/2021 (TYLENOL #3) 300-30 mg MOUTH EVERY 6 HOURS per tablet NEEDED FOR SEVERE PAIN buPROPion XL (WELLBUTRIN Take 150 mg by 0 022 05/12/2021 XL) 150 mg 24 hr tablet mouth. cephalexin (KEFLEX) 500 0 11/12/2020 0 05/12/2021 mg capsule CHOLECALCIFEROL 1,000 0 08/08/201706/2021 unit tablet cholecalciferol, vitamin Take 25 mcg by 0 022 07/14/2021 D3, 25 mcg (1,000 Unit) mouth. tablet citalopram (CeleXA) 20 mg Take 1 tablet (20 mg 30 tablet 0 12/26/2017 05/12/2021 tablet total) by mouth daily. cyclobenzaprine 0 04/02/2021 (FLEXERIL) 10 mg tablet desvenlafaxine (PRISTIQ) TAKE 1 TABLET BY 0 03/1605/12/2021 25 mg 24 hr tablet MOUTH EVERY DAY X7 DAYS THEN 2 TABLETS EVERY DAY WITH FOOD DISCONTINUE CYMBALTA DULoxetine (CYMBALTA) 20 Take 20 mg by mouth 0 05/12/[address] capsule daily. ergocalciferol (DRISDOL) Take 50,000 Units by 0 0 04/20/2021 05/12/2021 50,000 Unit capsule mouth once a week. ibuprofen (ADVIL,MOTRIN) Take 400 mg by 0 022 05/12/2021 200 mg tablet mouth. naproxen (NAPROSYN) 500 0 04/06/2021 0 05/12/2021 mg tablet omega-3 fatty acids-fish Take 2 g by mouth 0 05/12/2021 oil 300-1,000 mg capsule daily. ondansetron ODT Take 4 mg by mouth. 0 03/22/2020 05/12/2021 (ZOFRAN-ODT) 4 mg disintegrating tablet oxybutynin (DITROPAN-XL) 5 mg. 0 02/18/2017 05/12/2021 5 mg 24 hr tablet oxyCODONE (ROXICODONE) 5 Take 5 mg by mouth. 0 05/12/2021 mg immediate release tablet polyethylene glycol Take 17 g by mouth. 0 022 05/12/2021 (MIRALAX) 17 gram/dose oral powder Take 1 tablet by 90 tablet 3 04/15/2021 05/13/19 22 vit27,calcium/iron/FA mouth daily. (multivitamin/mineral-pre ginger) tablet Se--19 29 mg iron- 1 Take 1 tablet by 0 03/10/202105/12/2021 mg tablet mouth daily. sennosides-docusate Take 1 tablet by 0 04/06/2021 05/12/2021 sodium (SENOKOT-S) 8.6-50 mouth at bedtime. mg per tablet tiZANidine (ZANAFLEX) 2 TAKE 1/2 TO 1 TABLET 0 05/12/2021 mg tablet BY MOUTH TWICE DAILY NEEDED FOR MUSCLE PAIN OR TENSION topiramate (TOPAMAX) 25 Take 25 mg by mouth. 0 05/12/2021 mg tablet traZODone (DESYREL) 100 Take 50-200 mg by 0 01/1405/12/2021 mg tablet mouth. triamcinolone (KENALOG) APPLY TOPICALLY TO 0 10/0905/12/2021 0.1 % cream THE AFFECTED AREA TWICE DAILY FOR ATOPIC DERMATITIS documented as of this encounter Plan of Treatment Upcoming Encounters Date Type Specialty Care Team Description 11/09/2021 Office Visit Family Medicine Fadia Merchant M.D. [address] [place] [phone] (Wo rk) 11/10/2021 Office Visit Family Medicine Zacarias Sarabia M.B.B.S., M.D. [address] [place] [phone] (Wo rk) 11/11/2021 Comprehensive Visit Orthopedic Surgery Ivan Deng M.D. [address], [place] [phone] (Wo rk) documented as of this encounter Procedures Procedure Name Priority Date/Time Associated Comments Diagnosis HUMAN CHORIONIC Routine 04/22/2021 1:45 PM Test Resu lts for this GONADOTROPIN (HCG), CDT procedur e are in LUCINDA, the results section. documented in this encounter Results hCG (Human Chorionic Gonadotropin), Quantitative, (04/22/2021 1:45 PM CDT) P athologist Signature HCG, <0.5 <5 IU/L 04/22/2021 [place] Quantitative, 4:52 PM CDT , P Comment: Biotin has been identified by the lucy banegas as a potential interfering substance. ??Higher concentr ations of biotin may be found in multivitamins, hair/nail supple ments, and workout supplements. ??If the result does not ma tch clinical observations, repeat testing after patient refrains fr om the use of supplements for at least 12 hours. Specimen Anatomical Collection Method Collection Time Receive d Time (Source) Location / / Volume Laterality Blood (Blood, 04/22/2021 1:45 PM 04/23/19 3:40 Venous) CDT PM CDT Katy Salas M.D. LAB BLOOD ADD-ON Performing Organization Address City/State/ZIP Code Phon e Number [facility] [address] [place] [address] [place] [address] System in [place] [address] documented in this encounter Visit Diagnoses Diagnosis Test Pain Knee Left - Primary documented in this encounter Additional Health Concerns Assessment Noted Time PHQ-9 Depression Total Score: 9 12/26/2017 3:39 PM SPECIAL EVENTS ASSISTANT documented as of this encounter Care Teams General Operations Agent Relationship Specialty Start Date End Date Elsewhere, Pcp PCP - General Internal Medicine 04/06/21 05/04/21 documented as of this encounter
--- OUTSIDE RECORDS SUMMARY | 2021-11-07 19:44 | XMS_ITS | Encounter Summary ---
:1980 Author Organization [facility] Address [address] [place] [address] Care Team Providers Name Role Phone Elsewhere, Pcp Primary Care Provider Unavailable Encounter Details Date Type Department Care Team Description 04/14/2021 Clinical Communication Department of [facility] in [address] [place], [place] [address] [address] [place], [place] [phone] (Work) [phone] Social History Tobacco Use Types Packs/Day Years Used Date Smoking Tobacco: Never Smokeless Tobacco: Never Sex Assigned at Date Recorded Not on file documented as of this encounter Miscellaneous Notes Telephone Encounter - Barbra Decker RAndrew. - 04/23/2021 4:51 PM CDT Patient called to get her lab results. She was notified that her test was negative. She requested to make an appointment to follow up with this and to discuss her irregular light periods. Shewas sent to scheduling. Telephone Encounter - Barbra Decker R.N. - 04/21/2021 2:50 PM CDT Patient notified. She was sent to scheduling to make lab appt. Addendum Note - Katy Landaverde M.D. - 04/21/2021 2:41 PM CDT Addended by: KATY LANDAVERDE on: 04/21/2021 02:41 PM Modules accepted: Orders Telephone Encounter - Katy Landaverde M.D. - 04/21/2021 2:39 PM CDT Order for quant HCG signed. Please let her know. Addendum Note - Barbra Decker R.N. - 04/21/2021 2:07 PM CDT Addended by: BARBRA DECKER on: 04/21/2021 02:07 PM Modules accepted: Orders Telephone Encounter - Barbra Decker R.N. - 04/21/2021 1:59 PM CDT Patient called nurse triage line with concerns of taking a test this AM and results were negative. She stated she decided to take an other test as she was not feeling anymore and started to have some bleeding this morning, like her period. She is requesting a blood test in clinic to confirm . Addendum Note - Alberto Kolb R.N. - 04/15/2021 11:40 AM THERAPY ASSISTANT Addended by: ALBERTO KOLB on: 04/15/2021 11:40 AM Modules accepted: Orders APY ASSISTANT Telephone Encounter - Alberto Kolb R.N. - 04/15/2021 11:23 AM CST ASSESSMENT Reason for call: initiate care History: LMP: End of February(approx 03/03/21) Gestational Age: approx 6 wk LIDIA: end of November/early December 2021 : 2 Para: 1 Miscarriage: 0 Termination: 0 Stillbirth: 0 Delivery History: Have you had any of the following? Previous tubal ? no Diabetes or diabetes in ? [id number] High blood pressure or high blood pressure in ? no Previous blood clots? no Any kidney or liver disease? no Any heart problems? no Received treatment for cancer? no Chronic Illness (PCOS, Thyroid, Hyperlipidemia): depression Medications: Wellbutrin, Pristiq, PNV-per RN protocol Seasonal Flu Shot:yes COVID vaccine: with booster Tobacco Use: no Scent sensitivity, breast tenderness, Was seen in ED on 04/13/21 after having a fall and was told she had a positive test. This isunplanned. PLAN Bleeding/pain precautions discussed and to notify clinic during office hours and ED after hours. NOBinformation sent. Encouraged to call with questions or concerns. Transferred to DOS to schedule NOB appointments. Dr Beyer, can you please review current medication and advise? Thanks Disposition/Recommendation: recommended continue engagement in self-management activities. Information/Education: patient/caller able to teach back. Caller agreeable to plan of care: yes. The following references were used: nursing clinical judgement. APY ASSISTANT Telephone Encounter - Alberto Kolb R.N. - 04/15/2021 9:38 AM CST Left message to call back APY ASSISTANT Telephone Encounter - Elzbieta Turner - 04/14/2021 4:53 PM CST Reason for Communication: Patient was seen in ED and was told she had a positive test. LMP: Unknown sometime in February. Current Can Nursing/Provider leave a detailed message?: Yes Did the patient refuse triage through Nurse line? (for symptom based concerns): Action Needed: Please advise Name of Medication (if relevant): Please send all scheduling replies to scheduling pool. APY ASSISTANT documented in this encounter Plan of Treatment Upcoming Encounters Date Type Specialty Care Team Description 11/09/2021 Office Visit Family Medicine Fadia Merchant M.D. [address] [place] [address] (Wo rk) 11/10/2021 Office Visit Family Medicine Zacarias Sarabia M.B.B.S., M.D. [address] [place] [address] (Wo rk) 11/11/2021 Comprehensive Visit Orthopedic Surgery Ivan Deng M.D. [address] [phone] (Wo rk) documented as of this encounter Results hCG (Human Chorionic Gonadotropin), Quantitative, (04/22/2021 1:45 PM CDT) athologist Signature HCG, <0.5 <5 IU/L 04/22/2021 [place] Quantitative, 4:52 PM CDT , P Comment: Biotin has been identified by the lucy banegas as a potential interfering substance. ??Higher concentr ations of biotin may be found in multivitamins, hair/nail supple ments, and workout supplements. ??If the result does not [facility] clinical observations, repeat testing after patient refrains fr om the use of supplements for at least 12 hours. Specimen Anatomical Collection Method Collection Time Receive d Time (Source) Location / / Volume Laterality Blood (Blood, 04/22/2021 1:45 PM 04/23/19 22 3:40 Venous) CDT PM CDT Katy Landaverde M.D. LAB BLOOD ADD-ON Performing Organization Address City/State/ZIP Code Phon e Number [facility] [address] [place] [address] [place] [address] System in [place] [address] documented in this encounter Visit Diagnoses Diagnosis Encounter For Supervision Of Other Ct l Unspecified Trimester (HCC) - Primary Test Pain Knee Left - Primary documented in this encounter Additional Health Concerns Assessment Noted Time PHQ-9 Depression Total Score: 9 12/26/2017 3:39 PM THERAPY ASSISTANT documented as of this encounter Care Teams Directory Assistance Operator Relationship Specialty Start Date End Date Elsewhere, Pcp PCP - General Internal Medicine 04/06/21 05/04/21 documented as of this encounter
--- OUTSIDE RECORDS SUMMARY | 2021-11-07 19:44 | XMS_ITS | Encounter Summary ---
:1980 Author Organization [facility] Address [address] [place] [address] Care Team Providers Name Role Phone Zacarias Sarabia M.D. Primary Care Provider [phone] Encounter Details Date Type Department Care Team Description 10/14/2020 Orders Only [facility] PCP [facility] MNT Zacarias Sarabia I. , Screening Carley Mcelroy.BEliseoBDivya, [place] [address] [place] [address] (Andrew ramirez) Social History Tobacco Use Types Packs/Day Years Used Date Smoking Tobacco: Never Smokeless Tobacco: Never Sex Assigned at Date Recorded Not on file documented as of this encounter Plan of Treatment Upcoming Encounters Date Type Specialty Care Team Description 11/09/2021 Office Visit Family Medicine Fadia Merchant M.D. [address] [place] [address] (Andrew ramirez) 11/10/2021 Office Visit Family Medicine Zacarias Sarabia M.B.BEliseoSEliseo, [place] [address] [place] [address] (Andrew ramirez) 11/11/2021 Comprehensive Visit Orthopedic Surgery Ivan Deng M.D. 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 PCP - General 01/08/19 04/05/[address] [place] [address] [place] [address] documented as of this encounter
--- OUTSIDE RECORDS SUMMARY | 2021-11-07 19:44 | XMS_ITS | Encounter Summary ---
:1980 Author Organization [facility] Address [address] [place] [address] Care Team Providers Name Role Phone Fadia Merchant M.D. Primary Care Provider Encounter Details Date Type Department Care Team Description 07/17/2021 Orders Only Pharmacy Prior Auth RO [place] [phone] Social History Tobacco Use Types Packs/Day Years Used Date Smoking Tobacco: Never Smokeless Tobacco: Never Sex Assigned at Date Recorded Not on file documented as of this encounter Plan of Treatment Upcoming Encounters Date Type Specialty Care Team Description 11/09/2021 Office Visit Family Medicine Fadia Merchant M.D. [address] [place] [address] (Andrew ramirez) 11/10/2021 Office Visit Family Medicine Zacarias Sarabia M.B.B.S., M.D. [address] [place] [address] (Andrew ramirez) 11/11/2021 Comprehensive Visit Orthopedic Surgery Ivan Deng M.D. [address] [place], [place] [phone] (Andrew ramirez) documented as of this encounter Visit Diagnoses Not on filedocumented in this encounter Additional Health Concerns Assessment Noted Time PHQ-9 Depression Total Score: 15 07/14/2021 3:46 PM CD T documented as of this encounter Care Teams Cap And Stud Machine Operator Relationship Specialty Start Date End Date Fadia Merchant M.D. PCP - General Family Medicine 05/05/[address] [place] [address] [place] [address] documented as of this encounter
--- OUTSIDE RECORDS SUMMARY | 2021-11-07 19:44 | XMS_ITS | Encounter Summary ---
:1980 Author Organization [facility] Address [address] [place] [address] Care Team Providers Name Role Phone Shreya Dean M.D. Primary Care Provider Encounter Details Date Type Department Care Team Description 04/13/2018 Orders Only [facility] PCP TH MARIBETHT Chuyita Dean M.D. Screening Lipid [address] [place], [place] [address] (Andrew ramirez) Social History Tobacco Use Types Packs/Day Years Used Date Smoking Tobacco: Never Smokeless Tobacco: Never Sex Assigned at Date Recorded Not on file documented as of this encounter Plan of Treatment Upcoming Encounters Date Type Specialty Care Team Description 11/09/2021 Office Visit Family Medicine Fadia Merchant M.D. [address] [place] [address] (Wo rk) 11/10/2021 Office Visit Family Medicine Zacarais Sarabia M.B.B.S., M.D. [address] [place] [address] (Wo rk) 11/11/2021 Comprehensive Visit Orthopedic Surgery Ivan Deng M.D. 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 PCP - General Family Medicine 12/14/17 01/07/19 documented as of this encounter
--- OUTSIDE RECORDS SUMMARY | 2021-11-07 19:44 | XMS_ITS | Encounter Summary ---
:1980 Author Organization [facility] Address [address] [place] [address] Care Team Providers Name Role Phone Fadia Merchant M.D. Primary Care Provider Reason for Visit Reason Comments Depression COVID Nurse Line Encounter Details Date Type Department Care Team Description 05/05/2021 Nurse Triage Department of [facility] Lubna Syed Depr ession; COVID Nurse Medicine, Clements R.N. [facility], in [place] [address] [place], [place] [address] [address] [place], [place] [phone] (Work) [phone] Social History Tobacco Use Types Packs/Day Years Used Date Smoking Tobacco: Never Smokeless Tobacco: Never Sex Assigned at Date Recorded Not on file documented as of this encounter Miscellaneous Notes Telephone Encounter - Lubna Syed RNeha - 05/05/2021 1:02 PM CDT COVID-19 Nurse Line Screening ASSESSMENT Initial Screening Pathway Select appropriate pathway: : Adult In the last 48 hours, have you had a fever* OR symptoms that are unrelated to a preexisting illness?: No symptoms noted (Continue Screening) COVID Asymptomatic Screening Have you had close contact* with a person who has tested positive with COVID-19 in the past 14 days?: No (Continue Screening) Have you tested positive for COVID-19 in the last 90 days?: No (Continue Screening) Have you been advised to undergo testing or are you requesting testing?: No, testing for COVID-19 isnot indicated (End Screening) Testing Recommendation Endpoint Is testing recommended? : Not recommended to test Further Triage Needs Any further triage needs? : No further concerns noted. PLAN Endpoint recommendation: Testing not indicated at this time Standard Care Points -Get a COVID -19 vaccine as soon as you can if not fully vaccinated. -Wash hands frequently with soap and water, use hand set up mold technician if soap and water aren't available. -Wear a mask over your nose and mouth to help protect yourself and others if not fully vaccinated and having no symptoms -Stay 6 feet between yourself and others who don't live with you. -Avoid crowds and poorly ventilated indoor spaces. -Seek emergent care if any of the following occur Trouble breathing Bluish lips or face Persistent pain or pressure in the chest New confusion or inability to rouse. -Notify your regular care provider of any new or worsening symptoms. Asymptomatic without exposure Carepoints: Testing is not recommended at this time. If you become symptomatic, please call back for additional screening. Education: Patient/caregiver able to teach back Patient agreeable to plan of care: Yes The following references were used: [facility] novel coronavirus (COVID- 19) resources Nursing judgement Telephone Encounter - Lubna Syed R.N. - 05/05/2021 12:40 PM CDT Chief Complaint / Reason for Call Patient is a 40 y.o. female calling regarding Depression and COVID Nurse Line. Assessment Concern: Depression. Fatigue. Weight gain. Feels worthless. Feels it is a struggle to care for herself , to shower, and manage. She no longer works. She finds it harder to do house chores. She is fatigued. She says she is overweight and is now weighing 379 pounds. She says she is prediabetic. She saysshe has struggled with depression symptoms for a while, and was on medication a while ago, but did not take the medications . Her symptoms got worse. Present for: A long time Calling to request: Appointment The recommended disposition is See a health care provider within 24 hours. Reason for Disposition ??? [1] Depression AND [2] worsening (e.g.,sleeping poorly, less able to do activities of daily living) Protocols used: [id number] Care Advice Patient/Caregiver understands and will follow care advice?: Yes, able to teach back SEE PCP WITHIN 24 HOURS: REASSURANCE AND EDUCATION: * People with depression do get through this -- even people who feel as badly as you feel now. You can be helped. * Encourage the caller to talk about his/her problems and feelings. * Offer hope. CALL BACK IF: * You feel like harming yourself * You become worse. CARE ADVICE given per Depression (Adult) guideline. National suicide prevention Lifeline [phone] Patient was warm transferred to [facility] at the clinic for further assistance. documented in this encounter Plan of Treatment Upcoming Encounters Date Type Specialty Care Team Description 11/09/2021 Office Visit Family Medicine Fadia Merchant M.D. [address] [place] [phone] (Wo james) 11/10/2021 Office Visit Family Medicine Zacarias Sarabia M.B.B.S., M.D. [address] [place] [address] (Wo james) 11/11/2021 Comprehensive Visit Orthopedic Surgery Ivan Deng M.D. [address] [phone] (Andrew ramirez) documented as of this encounter Visit Diagnoses Not on filedocumented in this encounter Additional Health Concerns Assessment Noted Time PHQ-9 Depression Total Score: 05/05/2021 12:44 PM C DT documented as of this encounter Care Teams Filter Worker Relationship Specialty Start Date End Date Fadia Merchant M.D. PCP - General Family Medicine 05/05/21 [address] [facility] [place] [phone] documented as of this encounter
--- OUTSIDE RECORDS SUMMARY | 2021-11-07 19:44 | XMS_ITS | Encounter Summary ---
:1980 Author Organization [facility] Address [address] [place] [address] Care Team Providers Name Role Phone Fadia Merchant M.D. Primary Care Provider Reason for Referral Outpatient (Routine) - Closed Specialty Diagnoses / Procedures Referred By Contact Refer red To Contact Diagnoses Shortness Of Breath Fadia Merchant M.D. [facility] Procedures Echo Stress [address] [place] [address] Referral ID Status Reason Start Date Expiration Date Visits Requ ested Visits Authorized [id number] Closed 05/12/2021 05/12/2022 1 1 ehavioral Health (Routine) - Closed Specialty Diagnoses / Procedures Referred By Contact Refer red To Contact Psychiatry / Psychiatry Diagnoses Depression Fadia Merchant [facility] [address] [place] [address] Referral ID Status Reason Start Date Expiration Date Visits V isits Requested Authorized [id number] Closed Specialty 05/12/2021 05/12/2022 1 1 Services Required Reason for Visit Reason Comments Depression Fatigue, knee and back pain, SOB when walking short distances. Encounter Details Date Type Department Care Team Description 05/12/2021 Office Visit Department of Family Fadia Merchant, Dep ression (Primary Dx); Medicine, Kasandra Hurd Shortness Of Breath; Clinic, in [place] [address] Insomnia; [place], [place] Deficiency Vitamin D; [address] [address] Morbid Obesity Body Mass Index 50.0-59.9 Adult ([facility]); MARIBETH COBB [phone] PreDiabetes; [id number] (Work) Hyperlipidemia [phone] Social History Tobacco Use Types Packs/Day Years Used Date Smoking Tobacco: Never Smokeless Tobacco: Never Sex Assigned at Date Recorded Not on file documented as of this encounter Last Filed Vital Signs Vital Sign Reading Time Taken Comments Blood Pressure 124/80 05/12/2021 3:54 PM CDT Pulse 107 05/12/2021 3:54 PM CDT Temperature 35.8 ??C (96.5 ??F) 05/12/2021 3:54 PM CDT Respiratory Rate 20 05/12/2021 3:54 PM CDT Oxygen Saturation 99% 05/12/2021 3:54 PM CDT Inhaled Oxygen Concentration - - Weight 168 kg (371 lb 7.6 oz) 05/12/2021 3:54 PM CDT Height - - Body Mass Index 59 12/14/2017 2:34 PM [employer] documented in this encounter Progress Notes Fadia Merchant M.D. - 05/12/2021 3:45 PM CDT Progress Note Patient is 40 years old with past medical history significant for depression, urinary incontinence, morbid obesity, chronic back pain who presented today to the clinic for evaluation of depression. Patient stated that she has been having depression for a long time since 2011. Patient reported symptomsof low energy, low motivation, not able to leave her room, feeling tired most of the time, not focusing, her to do her daily activities. She stated that she was on multiple previous medication in the past and she had side effects, she stated that she was on Pristiq age which made her symptoms worse, she was on Wellbutrin did not help, she was on sertraline and she did not feel well when she was taking it. She denies suicidal or homicidal ideation, she stated that her motive is her 7 years old son. She also has been struggling with her weight. She admitted to have shortness of breath specially with activities. She denies smoking cigarette, drinking alcohol or using any recreational drugs. She denies history of asthma or COPD. She denies cough, palpitation, orthopnea, paroxysmal nocturnal dyspnea, headache, dizziness, abdominal pain, nausea, vomiting, diarrhea or constipation. No Known Allergies Current Outpatient Medications: ??? acetaminophen (TYLENOL) 500 mg tablet, , Disp: , Rfl: ??? cholecalciferol, vitamin D3, 25 mcg (1,000 Unit) tablet, Take 25 mcg by mouth., Disp: , Rfl: ??? cyclobenzaprine (FLEXERIL) 10 mg tablet, Take 1 tablet (10 mg total) by mouth at bedtime as needed for muscle spasms., Disp: 30 tablet, Rfl: 0 ??? ergocalciferol (DRISDOL) 50,000 Unit capsule, Take 1 capsule (50,000 Units total) by mouth once a week. (Patient not taking: Reported on 05/22/2021), Disp: 8 capsule, Rfl: 0 ??? FLUoxetine (PROzac) 20 mg capsule, Take 1 capsule (20 mg total) by mouth daily., Disp: 30 capsule, Rfl: 0 ??? traZODone (DESYREL) 50 mg tablet, Take 1 tablet (50 mg total) by mouth at bedtime as needed for sleep., Disp: 30 tablet, Rfl: 0 Past Medical History: Diagnosis Date ??? Constipation Slow Transit ??? Depression Major Recurrent (HCC) ??? Incontinence Urinary Stress Female ??? Menstrual Irregularity ??? Morbid Obesity Body Mass Index 40.0-44.9 Adult (HCC) ??? Pain Low Back Chronic Social History Tobacco Use ??? Smoking status: Never Smoker ??? Smokeless tobacco: Never Used REVIEW OF SYSTEMS Vitals: 05/12/21 1554 BP: 124/80 BP Location: Left arm Patient Position: Sitting Cuff Size: Large Pulse: 107 Resp: 20 Temp: (!) 35.8 ??C TempSrc: Temporal SpO2: 99% Weight: (!) 168 kg Constitutional Appearance: She is well-developed. HENT Head: Normocephalic and atraumatic. Right Ear: External ear normal. Left Ear: External ear normal. Nose: Nose normal. Eyes Conjunctiva/sclera: Conjunctivae normal. Pupils: Pupils are equal, round, and reactive to light. Cardiovascular Rate and Rhythm: Normal rate and regular rhythm. Heart sounds: Normal heart sounds. Pulmonary Effort: Pulmonary effort is normal. No respiratory distress. Breath sounds: Normal breath sounds. Abdominal General: Bowel sounds are normal. There is no distension. Palpations: Abdomen is soft. There is no mass. Tenderness: There is no abdominal tenderness. There is no guarding. Musculoskeletal General: Normal range of motion. Cervical back: Normal range of motion and neck supple. Skin General: Skin is warm and dry. Neurological Mental Status: She is alert and oriented to person, place, and time. Deep Tendon Reflexes: Reflexes are normal and symmetric. Psychiatric Behavior: Behavior normal. Narinder was seen today for depression. Diagnoses and all orders for this visit: Depression - Psychiatry and Psychology - General consult (clinic); Future We had lengthy discussion regarding symptoms of depression. Her PHQ today is 17. She contracted safety. Given that she tried multiple medication in the past and her attempt was unsuccessful, I would like to refer her to psych for further evaluation and treatment. She prefered to get service within thearea. Handout of psychiatrist and psychologist within the area given to the patient. We discussed regarding motivational values and books. We discussed initiation of daily routine as tolerated would bebeneficial. Shortness Of Breath - Echo Stress; Future We discussed this could be multifactorial especially with the weight. I suspected hypoventilation syndrome. I would like also to rule out cardiac causes, stress test ordered. Her last lipid numbers were slightly elevated. Insomnia We discussed this could be part of her depression. I will send her prescription for trazodone. We also encouraged CBT. Deficiency Vitamin D Reviewed her recent labs in March from [facility], her vitamin-D is 15. Prescription for vitamin-D supplement sent to the pharmacy. Morbid Obesity Body Mass Index 50.0-59.9 Adult (HCC) Lengthy discussion regarding weight management with the patient. We discussed healthy lifestyle. We discussed intermittent fasting as an option to help with insulin resistant. Hyperlipidemia Her last lipid panel slightly elevated. Strict lifestyle modification will help significantly. Prediabetes Her last A1c 6.2. We will repeat again in 6 months. Strict life style modification again stressed. Other orders - traZODone (DESYREL) 50 mg tablet; Take 1 tablet (50 mg total) by mouth at bedtime as needed for sleep. - ergocalciferol (DRISDOL) 50,000 Unit capsule; Take 1 capsule (50,000 Units total) by mouth once a week. (Patient not taking: Reported on 05/22/2021) documented in this encounter Plan of Treatment Upcoming Encounters Date Type Specialty Care Team Description 11/09/2021 Office Visit Family Medicine Fadia Merchant M.D. [address] [place] [address] (Wo rk) 11/10/2021 Office Visit Family Medicine Zacarias Sarabia M.B.B.S., M.D. [address] [place] [address] (Wo rk) 11/11/2021 Comprehensive Visit Orthopedic Surgery Ivan Deng M.D. [address] [place], [place] [address] (Wo rk) Scheduled Referrals Name Type Priority Associated Order Schedule Diagnoses Psychiatry and Outpatient Referral Routine Depression Expect ed: Psychology - General 022 consult (clinic) (Approximat e), Expires: 08/11/2022 documented as of this encounter Results ECHO STRESS 2D WITH COLOR, LIMITED DOPPLER AND CONTRAST (07/03/2021 2:59 PM CDT) [facility] gist Method Time Signature Ejection Fraction 59 MC CV EIMS Proximal Ascending 29 MC CV EIMS Aorta LV Mass Index 41 MC CV EIMS LV End-Diastolic 40 MC CV EIMS Diameter LV End-Systolic 27 MC CV EIMS Diameter MV E Velocity 0.70 MC CV EIMS MV e' Velocity 0.09 MC CV EIMS Medial MV E/e' Medial 7.80 MC CV EIMS LV Interventricular 9 MC CV EIMS Septal Wall Thickness LV Posterior Wall 9 MC CV EIMS Thickness LV Relative Wall 45 MC CV EIMS Thickness TR Vmax 2.63 MC CV EIMS WMSI At Rest 1 MC CV EIMS WMSI At Peak Stress 1 [facility] EIMS Anatomical Region Laterality Modality Echocardiography, Ot her Specimen (Source) Anatomical Collection Method Collection Time Re ceived Time Location / / Volume Laterality 07/03/2021 1:07 PM CDT Impressions 07/03/2021 3:58 PM CDT STRESS TEST:Dobutamine was infused from 5 mcg/kg/min to 30 mcg/kg/min. A peak heart rate of 153 BPM was achieved (84% age-predicted maximal HR). The test was terminated due to chest pain and intolerable symptoms. The patient developed chest p ain and tremor/shivering. She also developed guadalupe sea and a tingling scalp. The baseline ECG demonstrated sinus rhythm with Tachycardia and non-specific ST abnormality. With stress, there were no S-T changes. The stress ECG was negative for ischemia at heart rate achieved. Please see Nursing Notes for a dditional information. Challenging images due patient body habitus, ??supine examination, and patient inability to follow breathing instructions, despite the use of an ultrasound enhancing agent. Stress outreach echo interpretation. REST IMAGES:Attempts were made to optimi ze the echocardiographic images and two or more left ventricular segments were not visualized adequately to evaluate cardiac structure. The patient's current allergies and medications have been screened. Intravenous Definity ultrasound enhancem ent agent(s) administered to enhance endocardial border definition. Imaging enhancement agent administered per Echocardiography Contrast Administration Protocol Reference Document [id number]. Patient met an inclusion criterion and did not have con traindications in screening sections. LEFT VENTRICLE:Small left ventricular ch izabela size. Concentric remodeling (increased wall thickness to cavity ratio). Calculated 2-D linear left ventricular ejection fraction 59%. No regional wall motio n abnormalities. Normal left ventricular filling pressure. RIGHT VENTRICLE:Normal right ventricular chamber size by visual estimate. Normal right ventricular systolic function. Unable to detect peak tricuspid regurgitation velocity for pulmonary artery systolic pressure calculation. ATRIA:Normal left atrial size by visual estimate. Normal right atrial size by visual estimate. CARDIAC VALVES:Trileaflet aortic valve. Normal aortic valve. No aortic valve regurgitation. Normal mitral valve. Trivial mitral valve regurgitation. Pulmonary valve not well visualized. No hemodynamically significant pulmonary regurgitation. Normal tricuspid valve. Trivial tricuspid valve regurgitation. OTHER ECHO FINDINGS:Ascending aorta not well visualized. Normal proximal ascending aorta diameter of 29 mm. No intracardiac mass or thrombus, but the left atrial appendage cannot be visualized adequatel y with transthoracic echo to exclude thr ombus in this location. No ??pericardial effusion . For the complete report, see the Order-L evel Documents. Narrative 07/03/2021 3:58 PM CDT For the complete report, see the Order-Level Documents. Final Impressions 1. Dobutamine stress echocardiogram nega tive for myocardial ischemia. 2. Ejection fraction response from 59% a t rest to 70% at peak stress, left ventricular end-systolic volume decreased with stress. 3. A peak heart rate of 153 BPM was achi eved (84% age-predicted maximal HR). 4. The stress ECG was negative for ische feng. Procedure Note Denver Monroy M.D. - 07/03/2021F ormatting of this note might be different from the original. For the complete report, see the Order-L evel Documents. Final Impressions 1. Dobutamine stress echocardiogram nega tive for myocardial ischemia. 2. Ejection fraction response from 59% a t rest to 70% at peak stress, left ventricular end-systolic volume decreased with stress. 3. A peak heart rate of 153 BPM was achi eved (84% age-predicted maximal HR). 4. The stress ECG was negative for ische feng. Findings STRESS TEST:Dobutamine was infused from 5 mcg/kg/min to 30 mcg/kg/min. A peak heart rate of 153 BPM was achieved (84% age-predicted maximal HR). The test was terminated due to chest pain and intolerable symptoms. The patient developed chest pain and tremor/ shivering. She also developed nausea and a tingling scalp. The baseline ECG demonstrated sinus rhythm with Tachycardia and non-specific ST abnormality. With stress, there were no S-T changes. The stress ECG was negat aline for ischemia at heart rate achieved. Please see Nursing Notes for additional information. Challenging images due patient body habitus, supine examination, and patient inability to follow breathing instructio ns, despite the use of an ultrasound enhancing agent. Stress outreach echo interpretation. REST IMAGES:Attempts were made to optimi ze the echocardiographic images and two or more left ventricular segments were not visualized adequately to evaluate cardiac structure. The patient's current allergies and medications have been screened. Intraven ous Definity ultrasound enhancement agent(s) administered to enhance endocardial border definition. Imaging enhancement agent administered per Echocardiography Contrast Administration Protocol Referen ce Document [id number]. Patient met an inclusion criterion and did not have contraindications in screening sections. LEFT VENTRICLE:Small left ventricular ch izabela size. Concentric remodeling (increased wall thickness to cavity ratio). Calculated 2-D linear left ventricular ejection fraction 59%. No regional wall motion abnormalities. Normal left ventricular filling pressure . RIGHT VENTRICLE:Normal right ventricular chamber size by visual estimate. Normal right ventricular systolic function. Unable to detect peak tricuspid regurgitation velocity for pulmonary artery systolic pressure calculation. ATRIA:Normal left atrial size by visual estimate. Normal right atrial size by visual estimate. CARDIAC VALVES:Trileaflet aortic valve. Normal aortic valve. No aortic valve regurgitation. Normal mitral valve. Trivial mitral valve regurgitation. Pulmonary valve not well visualized. No hemodynamically significant pulmonary regurgitation. Nor mal tricuspid valve. Trivial tricuspid valve regurgitation. OTHER ECHO FINDINGS:Ascending aorta not well visualized. Normal proximal ascending aorta diameter of 29 mm. No intracardiac mass or thrombus, but the left atrial appendage cannot be visualized adequately with transthoracic echo to exclude thrombus i n this location. No pericardial effusion. For the complete report, see the Order-L evel Documents. Fadia Merchant M.D. CV ECHO PROCEDURES documented in this encounter Visit Diagnoses Diagnosis Depression - Primary Shortness Of Breath Insomnia Deficiency Vitamin D Morbid Obesity Body Mass Index 50.0-59.9 Adult (HCC) PreDiabetes Hyperlipidemia Shortness Of Breath Pain Knee Left - Primary documented in this encounter Additional Health Concerns Assessment Noted Time PHQ-9 Depression Total Score: 17 05/12/2021 3:51 PM CD T documented as of this encounter Care Teams Director Underwriter Sales Relationship Specialty Start Date End Date Fadia Merchant M.D. PCP - General Family Medicine 05/05/[address] [place] [phone] documented as of this encounter
--- OUTSIDE RECORDS SUMMARY | 2021-11-07 19:44 | XMS_ITS | Encounter Summary ---
:1980 Author Organization [facility] Address [address] [place] [address] Care Team Providers Name Role Phone Fadia Merchant M.D. Primary Care Provider Reason for Visit Reason Comments Prior Auth for needed Medication Encounter Details Date Type Department Care Team Description 07/16/2021 Clinical Communication Department of Fadia Merchant or Katie for Family MedicineLilibeth M.D. needed Medication [facility] [address] in [facility] [phone] [place] [address] [place], [place] (Work) [phone] Social History Tobacco Use Types Packs/Day Years Used Date Smoking Tobacco: Never Smokeless Tobacco: Never Sex Assigned at Date Recorded Not on file documented as of this encounter Miscellaneous Notes Telephone Encounter - Angelita Tomlinson, C.M.AEliseo - 08/11/2021 5:33 PM CDT Notified patient of new medication. Telephone Encounter - Corie Bo - 08/11/2021 5:05 PM CDT Patient returned nurse's call. Attempted to reach a nurse but not available. Please call patient back. Patient has requested that a detailed message be left when the nurse calls her as she is not wanting to call back and not be able to speak to the nurse. [phone] Telephone Encounter - Charmaine Pabon - 08/11/2021 1:54 PM CDT Left message for patient to return call to clinic. Does the patient need to speak to nursing? yes Action needed: patient needs to be informed of the following information per Dr. Cornell M.D. I have sent a prescription in for oral semaglutide. If tolerable and covered, I will increase the dose to 7 mg daily in 6 weeks. Telephone Encounter - Fidel Sarabia M.D. - 08/11/2021 10:54 AM CDT I have sent a prescription in for oral semaglutide. If tolerable and covered, I will increase the dose to 7 mg daily in 6 weeks. Addendum Note - Fidel Sarabia M.D. - 08/11/2021 10:54 AM CDT Addended by: FIDEL SARABIA I on: 08/11/2021 10:54 AM Modules accepted: Orders Telephone Encounter - Clara Hughes C.M.A. - 08/11/2021 10:40 AM CDT Left message for patient to return call to clinic. Does the patient need to speak to nursing? yes Action needed: Inform patient that the letter of denial for the wegovy stated that they prefer Phentermine but Dr. Sarabia wants to try getting approval for Ozempic prior to Phentermine. See Cornell's note below. Fidel Sarabia M.D. to [facility] Nurse ?? 10:34 AM Note Data suggests semaglutide is now much better medication for this patient. It is not addictive and gives better weight loss results. Phentermine will require an aggressive exercise program with suboptimal results at best. I would rather try another brand of semaglutide. Can we see if Ozempic will be acceptable?. If patient is fine with phentermine and its risks, I will prescribe it. Telephone Encounter - Fidel Sarabia M.D. - 08/11/2021 10:31 AM CDT Data suggests semaglutide is now much better medication for this patient. It is not addictive and gives better weight loss results. Phentermine will require an aggressive exercise program with suboptimal results at best. I would rather try another brand of semaglutide. Can we see if Ozempic will be acceptable?. If patient is fine with phentermine and its risks, I will prescribe it. Telephone Encounter - Catalina Rios - 08/11/2021 9:00 AM CDT Good morning, Based on the notes I found in the patient's chart, the plan prefers phentermine. Thank you! Telephone Encounter - Clara Hughes CEliseoMSaritha - 08/07/2021 5:18 PM CDT SUBJECTIVE CHIEF COMPLAINT / REASON FOR CALL Prior Auth for needed Medication Information Discussed Patient informed of Dr. Sarabia's note as listed below. Patient states that she called the insurance company herself and that the reason it was denied was because she did not try a previous medicationfor a time period before being prescribed the Wegovy. Patient wants to know the list of medications that need to be tried prior to the Wegovy. This is on the denial letter. Recharger did not see the denial letter in the patient's chart. A message will be sent to the PA team to see if they have the denial letter and the other medications that need to be tried prior. Patient also wanted to reassure with Dr. Sarabia that there are no other weight loss medications that she can try besides Wegovy. PLAN Disposition/Recommendation: notified provider and awaiting recommendations Information/Education: not applicable Caller agreeable to plan of care: yes The following references were used: provider cornell Telephone Encounter - Fidel Sarabia M.D. - 08/07/2021 5:08 PM CDT There are no other options. Telephone Encounter - Clara Hughes C.M.A. - 08/05/2021 2:16 PM CDT SUBJECTIVE CHIEF COMPLAINT / REASON FOR CALL Prior Auth for needed Medication Information Discussed Patient informed of the denial of the Adam and Dr. Sarabia prescribing metformin as an alternative. Patient stated that in [facility] she was prescribed metformin and it made her sick. PLAN Disposition/Recommendation: notified provider and awaiting recommendations Information/Education: not applicable Caller agreeable to plan of care: yes The following references were used: provider Cornell Patient is not able to tolerate metformin - please find another alternative. Telephone Encounter - Fidel Sarabia M.B.B.S., M.D. - 08/05/2021 8:04 AM CDT I have sent a prescription for metformin. If tolerated, I will increase this to twice a day. Addendum Note - Fidel Sarabia M.B.B.S., M.D. - 08/05/2021 8:03 AM CDT Addended by: FIDEL SARABIA I on: 08/05/2021 08:03 AM Modules accepted: Orders Telephone Encounter - Mable Granados - 08/04/2021 4:54 PM CDT Patient called to request call back with status update on this Rx. Please call patient back as soon as possible. Telephone Encounter - Ivonne English L.P.NEliseo - 08/03/2021 9:33 AM CDT Spoke with Cielo and mau was denied. PA was completed and denied. Would you like to order alternate? Telephone Encounter - Mable Granados - 07/31/2021 5:01 PM CDT Reason for Communication: Patient called to request the Prior Auth be resent to [facility] in [place]. She aid they received the Rx, but never got the PA letter. Please send PA or call patient back with further questions. Current Can Nursing/Provider leave a detailed message?: yes Did the patient refuse triage through Nurse line? (for symptom based concerns): n/a Action Needed: Please send Prior Auth letter or call patient back. Name of Medication (if relevant): semaglutide (WEGOVY) 0.25 mg/0.5 mL pen injector injection Please send all scheduling replies to scheduling pool. Telephone Encounter - Charmaine Pabon - 07/17/2021 5:31 PM CDT SUBJECTIVE CHIEF COMPLAINT / REASON FOR CALL Prior Auth for needed Medication Information Discussed Called and informed patient that the prescription has been sent to [facility]. PLAN Disposition/Recommendation: self-care . appropriate at this time, patient encouraged to call back with questions Information/Education: not applicable Caller agreeable to plan of care: yes The following references were used: provider Dr. Mayur M.D. Telephone Encounter - Samreen Rascon - 07/17/2021 4:43 PM CDT Reason for Communication: Pt called and Kelsey doesn't have her medication on hand. Please send Rx to [facility] in [place]. Call Pt once this is send. Current Can Nursing/Provider leave a detailed message?: yes Did the patient refuse triage through Nurse line? (for symptom based concerns): Action Needed: Please send Rx to [facility] Name of Medication (if relevant): semaglutide (WEGOVY) 0.25 mg/0.5 mL pen injector injection Please send all scheduling replies to scheduling pool. Telephone Encounter - Catalina Rios - 07/17/2021 11:14 AM CDT Good morning, Thank you for your message. Prior Authorization for Wegovy is now in our work queue, and we will complete this as soon as possible. Thank you! Catalina PAREKH Telephone Encounter - Corie Bo - 07/16/2021 4:54 PM CDT Reason for Communication: Patient called and stated that the Rx for medication Wegovy was denied by insurance as it is needing a prior authorization. Patient wants a call back by Dr. Sarabia's nurse to discuss any recommendations. Current Can Nursing/Provider leave a detailed message?: No Did the patient refuse triage through Nurse line? (for symptom based concerns): Action Needed: Please call patient back Name of Medication (if relevant): Please send all scheduling replies to scheduling pool. documented in this encounter Plan of Treatment Upcoming Encounters Date Type Specialty Care Team Description 11/09/2021 Office Visit Family Medicine Fadia Merchant M.D. [address] [facility] [place] [phone] (Wo rk) 11/10/2021 Office Visit Family Medicine Fidel Sarabia M.B.B.S., M.D. [address] [place] [phone] (Wo rk) 11/11/2021 Comprehensive Visit Orthopedic Surgery Ivan Deng M.D. [address] [phone] (Wo rk) documented as of this encounter Visit Diagnoses Diagnosis Morbid Obesity Body Mass Index 50.0-59.9 Adult (HCC) PreDiabetes Pain Knee Left - Primary documented in this encounter Additional Health Concerns Assessment Noted Time PHQ-9 Depression Total Score: 15 07/14/2021 3:46 PM CD T documented as of this encounter Care Teams Mechanical Engineering Draftsperson Relationship Specialty Start Date End Date Fadia Merchant M.D. PCP - General Family Medicine 05/05/21 [address] [facility] [place] [phone] documented as of this encounter
--- OUTSIDE RECORDS SUMMARY | 2021-11-07 19:44 | XMS_ITS | Encounter Summary ---
:1980 Author Organization [facility] Address [address] [place] [address] Care Team Providers Name Role Phone Shreya Dean M.D. Primary Care Provider Encounter Details Date Type Department Care Team Description 04/14/2018 Clinical Communication Department of Kassie Galarza Neurology in [place]it Knott [place], [place] [address] [place] [place] [phone] Social History Tobacco Use Types Packs/Day Years Used Date Smoking Tobacco: Never Smokeless Tobacco: Never Sex Assigned at Date Recorded Not on file documented as of this encounter Miscellaneous Notes Telephone Encounter - Kassie Galarza L.P.N. - 04/19/2018 3:36 PM CDT Patient did not show for appointment with . Telephone Encounter - Kassie Galarza L.P.N. - 04/14/2018 11:50 AM CORRUGATED BOX MACHINE OPERATOR Attempted to contact patient. Has upcoming appointment with 04/19/18. Checking if she has 30 days of information on download from CPAP. If not will need to reschedule appointment. UGATED BOX MACHINE OPERATOR documented in this encounter Plan of Treatment Upcoming Encounters Date Type Specialty Care Team Description 11/09/2021 Office Visit Family Medicine Ayuob, Mysoon M, M.D. [address] [place] [address] (Wo rk) 11/10/2021 Office Visit Family Medicine Zacarias Sarabia M.B.B.S., M.D. [address] [place] [address] (Wo rk) 11/11/2021 Comprehensive Visit Orthopedic Surgery Ivan Deng M.D. [address], [place] [phone] (Wo rk) documented as of this encounter Visit Diagnoses Not on filedocumented in this encounter Additional Health Concerns Assessment Noted Time PHQ-9 Depression Total Score: 9 12/26/2017 3:39 PM CORRUGATED BOX MACHINE OPERATOR documented as of this encounter Care Teams Sand Mixer Machine Relationship Specialty Start Date End Date Shreya Dean M.D. PCP - General Family Medicine 12/14/17 01/07/19 documented as of this encounter
--- OUTSIDE RECORDS SUMMARY | 2021-11-07 19:44 | XMS_ITS | Encounter Summary ---
:1980 Author Organization [facility] Address [address] [place] [address] Care Team Providers Name Role Phone Zacarias Sarabia M.D. Primary Care Provider [phone] Encounter Details Date Type Department Care Team Description 05/30/2020 Orders Only [facility] PCP [facility] Sa shant Uribe M.D. [address] [place], [place] [phone] (Andrew ramirez) Social History Tobacco Use Types Packs/Day Years Used Date Smoking Tobacco: Never Smokeless Tobacco: Never Sex Assigned at Date Recorded Not on file documented as of this encounter Plan of Treatment Upcoming Encounters Date Type Specialty Care Team Description 11/09/2021 Office Visit Family Medicine Fadia Merchant M.D. [address] [place] [phone] (Wo rk) 11/10/2021 Office Visit Family Medicine Zacarias Sarabia M.B.B.S., M.D. [address] [place] [address] (Wo rk) 11/11/2021 Comprehensive Visit Orthopedic Surgery Ivan Deng M.D. [address], [place] [phone] (Wo rk) documented as of this encounter Visit Diagnoses Not on filedocumented in this encounter Additional Health Concerns Assessment Noted Time PHQ-9 Depression Total Score: 9 12/26/2017 3:39 PM [employer] documented as of this encounter Care Teams Geriatric Psychiatrist Relationship Specialty Start Date End Date Zacarias Sarabia M.B.B.S., M.D. PCP - General 01/08/19 04/05/[address] [place] [address] [place] [phone] documented as of this encounter
--- OUTSIDE RECORDS SUMMARY | 2021-11-07 19:44 | XMS_ITS | Encounter Summary ---
:1980 Author Organization [facility] Address [address] [place] [address] Care Team Providers Name Role Phone Zacarisa Sarabia M.D. Primary Care Provider [phone] Encounter Details Date Type Department Care Team Description 06/12/2019 Orders Only [facility] PCP [facility] Zacarias Sarabia M.BEliseo B.SEliseo, Screening Lipid M.D. [address] [place], [place] [phone] (Andrew ramirez) Social History Tobacco Use Types Packs/Day Years Used Date Smoking Tobacco: Never Smokeless Tobacco: Never Sex Assigned at Date Recorded Not on file documented as of this encounter Plan of Treatment Upcoming Encounters Date Type Specialty Care Team Description 11/09/2021 Office Visit Family Medicine Fadia Merchant M.D. [address] [place] [phone] (Andrew ramirez) 11/10/2021 Office Visit Family Medicine Zacarias Sarabia M.B.B.SEliseo, M.DEliseo [address] [place] [address] (Andrew rk) 11/11/2021 Comprehensive Visit Orthopedic Surgery Ivan Deng M.D. [address] [place], [place] [phone] (Andrew ramirez) documented as of this encounter Visit Diagnoses Diagnosis Screening Lipid Pain Knee Left - Primary documented in this encounter Additional Health Concerns Assessment Noted Time PHQ-9 Depression Total Score: 9 12/26/2017 3:39 PM HOME SCHOOL LIAISON OFFICER documented as of this encounter Care Teams Occupational Therapy Professor Relationship Specialty Start Date End Date Zacarias Sarabia M.B.B.S., M.D. PCP - General 01/08/19 04/05/[address] [place] [address] [place] [phone] documented as of this encounter
--- OUTSIDE RECORDS SUMMARY | 2021-11-07 19:44 | XMS_ITS | Encounter Summary ---
:1980 Author Organization [facility] Address [address] [place] [address] Care Team Providers Name Role Phone Fadia Merchant M.D. Primary Care Provider Encounter Details Date Type Department Care Team Description 05/25/2021 Clinical Communication Department of Kalyn Becker, Medicine, [facility], in [address] [address] [place], [place] [phone] (Work) [phone] Social History Tobacco Use Types Packs/Day Years Used Date Smoking Tobacco: Never Smokeless Tobacco: Never Sex Assigned at Date Recorded Not on file documented as of this encounter Miscellaneous Notes Telephone Encounter - Elaine Barbour - 06/04/2021 10:30 AM CDT Reason for Communication: Patient returned called your call, was informed a letter was sent out to her Current Telephone Encounter - Ivonne English L.P.N. - 06/04/2021 9:20 AM CDT Unable to contact Narinder. Mailbox full. Letter was created and sent. Telephone Encounter - Ct Palacios L.P.N. - 06/02/2021 8:35 AM CDT Mailbox remains full Telephone Encounter - Zacarias Sarabia M.B.B.S., M.D. - 06/01/2021 10:17 AM CDT If she has both prescriptions, she should start on 10 mg daily for 2 weeks and then go to 20 mg daily. Telephone Encounter - Julieta López L.P.N. - 06/01/2021 9:08 AM CDT SUBJECTIVE CHIEF COMPLAINT / REASON FOR CALL No chief complaint on file. PLAN The following information was provided: Called [facility] pharmacy to confirm they received the script for Prozac 20 mg. blood bank laboratory technician statedthey received it and the patient picked up both prescriptions for Prozac. I see the prescription on 05/22/21 was discontinued and a new script sent 05/29/21. Please confirm which dosage you would like patient to continue taking and nursing can notify patient. Pharmacy asked once provider confirms which script patient should be taking if nursing can contact patient. Information/Education: not applicable The following references were used: nursing clinical judgement Telephone Encounter - Charmaine Pabon - 05/29/2021 4:26 PM CDT Left message for patient to return call to clinic. Does the patient need to speak to nursing? yes Action needed: patient needs to be informed of the following information per Dr. Cornell M.D. This is not a serious request. ??Do they really think anyone has the time to do that? ??I will send in 1 prescription for 20 mg daily for a month. Telephone Encounter - Blair Ballard C.MSaritha - 05/28/2021 10:13 AM CDT SUBJECTIVE CHIEF COMPLAINT / REASON FOR CALL No chief complaint on file. Information Discussed Contacted the patient's pharmacy to identify the issue with the prescription. I was informed that the medication needs to be sent in separate scripts due to insurance restrictions. One prescription of two 10 mg capsules for 14 days. Then two prescriptions, for one a 10 mg capsule and one for 20 mg capsules both daily together for 14 days. Finally, a prescription for two 20 mg capsules daily for 14 days. PLAN Disposition/Recommendation: notified provider and awaiting recommendations Information/Education: patient/caller able to teach back Caller agreeable to plan of care: yes The following references were used: none Telephone Encounter - Charmaine Pabon - 05/27/2021 3:25 PM CDT [employer] ID #[id number] Telephone Encounter - Corie Bo - 05/26/2021 4:45 PM CDT Patient returned nurse's call. Attempted to reach a nurse nut was not able to reach anyone. Patient also mentioned that she lost her ring at the time of the appointment. Patient stated that she did notreceive a call from anyone this morning. Please call patient back [phone]. Telephone Encounter - Mable Granados - 05/25/2021 3:56 PM CDT Reason for Communication: Patient called in with several questions about lab results and one medication she was prescribed, but has not received. She has not received the Prozac Rx. Please call patientback and send x to [employer]. Current Can Nursing/Provider leave a detailed message?: yes Did the patient refuse triage through Nurse line? (for symptom based concerns): n/a Action Needed: Please send Rx and call patient back. Name of Medication (if relevant): FLUoxetine (PROzac) 10 mg capsule Please send all scheduling replies to scheduling pool. documented in this encounter Plan of Treatment Upcoming Encounters Date Type Specialty Care Team Description 11/09/2021 Office Visit Family Medicine Fadia Merchant M.D. [address] [place] [address] (Wo rk) 11/10/2021 Office Visit Family Medicine Zacarias Sarabia M.B.B.S., M.D. [address] [place] [phone] (Wo rk) 11/11/2021 Comprehensive Visit Orthopedic Surgery Ivan Deng M.D. 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 PCP - General Family Medicine 05/05/21 [address] [facility] [place] [phone] documented as of this encounter
--- OUTSIDE RECORDS SUMMARY | 2021-11-07 19:44 | XMS_ITS | Encounter Summary ---
:1980 Author Organization [facility] Address [address] [place] [address] Care Team Providers Name Role Phone Fadia Merchant M.D. Primary Care Provider Reason for Referral Outpatient (Routine) - Closed Specialty Diagnoses / Procedures Referred By Contact Refer red To Contact Diagnoses Shortness Of Breath Fadia Merchant M.D. [facility] [place] Region Procedures Echo Stress [address] [place] [address] Referral ID Status Reason Start Date Expiration Date Visits Requ ested Visits Authorized [id number] Closed 05/12/2021 05/12/2022 1 1 Reason for Visit Outpatient (Routine) - Closed Specialty Diagnoses / Procedures Referred By Contact Refer red To Contact Diagnoses Shortness Of Breath [facility].D. [facility] [place] [facility] Procedures Echo Stress [address] [place] [address] Referral ID Status Reason Start Date Expiration Date Visits Requ ested Visits Authorized [id number] Closed 05/12/2021 05/12/2022 1 1 Encounter Details Date Type Department Care Team Description 07/03/2021 Hospital Encounter Department of Fadia Merchant ss Of Breath Cardiovascular Diseases Vannessa Mcelroy in [place], Elise ta [address] [place], [place] MARIBETH PETERSON [address] [facility] [address] Social History Tobacco Use Types Packs/Day Years Used Date Smoking Tobacco: Never Smokeless Tobacco: Never Sex Assigned at Date Recorded Not on file documented as of this encounter Last Filed Vital Signs Vital Sign Reading Time Taken Comments Blood Pressure 150/110 07/03/2021 1:22 PM CDT Pulse - - Temperature - - Respiratory Rate - - Oxygen Saturation 99% 07/03/2021 1:28 PM CDT Inhaled Oxygen Concentration - - Weight - - Height 171 cm (5' 7.32) 07/03/2021 1:22 PM CDT Body Mass Index - - documented in this encounter Medications at Time of Discharge Medication Sig Dispensed Refills Start Date End Date acetaminophen (TYLENOL) 0 04/02/2021 500 mg tablet ergocalciferol (DRISDOL) Take 1 capsule 8 capsule 0 50,000 Unit capsule (50,000 Units total) by mouth once a week. cholecalciferol, vitamin Take 25 mcg by 0 022 07/14/2021 D3, 25 mcg (1,000 Unit) mouth. tablet cyclobenzaprine (FLEXERIL) Take 1 tablet (10 30 tablet 0 07/14/2021 10 mg tabletIndications: mg total) by mouth Pain Low Back Chronic at bedtime as needed for muscle spasms. 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 documented as of this encounter Plan of Treatment Upcoming Encounters Date Type Specialty Care Team Description 11/09/2021 Office Visit Family Medicine Fadia Merchant M.D. [address] [place] [phone] (Wo rk) 11/10/2021 Office Visit Family Medicine Zacarias Sarabia M.B.B.S., M.D. [address] [facility] [address] (Wo rk) 11/11/2021 Comprehensive Visit Orthopedic Surgery Ivan Deng M.D. [address] [place], [place] [address] (Wo rk) documented as of this encounter Procedures Procedure Name Priority Date/Time Associated Diagnosis Comme nts ECHO STRESS 2D WITH Routine 07/03/2021 2:59 PM Shortness Of Br eath Results for this COLOR, LIMITED CDT procedure are in DOPPLER AND the results CONTRAST section. documented in this encounter Results ECHO STRESS 2D WITH COLOR, LIMITED DOPPLER AND CONTRAST (07/03/2021 2:59 PM CDT) [facility] gist Method Time Signature Ejection Fraction [...] CV EIMS WMSI At Peak Stress 1 MC CV EIMS Anatomical Region Laterality Modality Echocardiography, Ot [...] per Echocardiography Contrast Administration Protocol Reference Document [id number]. Patient met an inclusion criterion and did [...] Echocardiography Contrast Administration Protocol Referen ce Document [id number]. Patient met an inclusion criterion and did [...] documented in this encounter Visit Diagnoses Diagnosis Shortness Of Breath Pain Knee Left - Primary documented in this encounter Administered Medications Inactive Administered Medications - up to 3 most recent administrations Medication Order MAR Action Action Date Dose Rate Site DOBUTamine 1,000 mcg/mL in New Bag 07/03/2021 2:29 PM CDT 24.9 mg 306 mL/hr D5W 250 mL infusion 1-100 mg (DOBUTREX) 1-100 mg, intravenous, Once, On Tue07/03/21 at 1345, For 1 dose, Infusion rate: 5-40 mcg/kg/min - see protocol. 250 mg in 250 mL NaCl 0.9 % bolus 250 mL New Bag 07/03/2021 2:30 PM CDT 150 mL 1500 mL/hr 250 mL, intravenous, at 1,500 mL/hr, Administer over 10 Minutes, As needed, See protocol, Starting on Tue07/03/21 at 1339 perflutren lipid microspheres injection Given 07/03/2021 2:40 PM CDT 4.5 mL (DEFINITY) intravenous, Once in imaging, contrast, Starting on Tue07/03/21 at 1339, For 1 dose, Standard concentration - perflutren lipid microsphere (DEFINITY) injection: To be administered for inclusion criteria that does not include an indication of myocardial perfusion. 1. Activate perflutren lipid microsphere by shaking the vial for 45 seconds using a Vialmix. 2. Draw up contents of vial into 10 mL syringe with 8.5 mL of 0.9% sodium chloride for a total of 10 mL. 3. Administer 0.5 mL IV push of the diluted solution. 4. Immediately flush with 0.9% sodium chloride over 10 seconds. 5. May repeat steps 3 and 4 until images are optimal or for a total of 10 mL of diluted solution being administered. See protocol. sodium chloride 0.9 % injection 10 mL Given 07/03/2021 1:30 PM CDT 10 mL 10 mL, intravenous, As needed, line care, Starting on Tue07/03/21 at 1339, Peripheral Intravenous Catheter and Rapid Infusion Catheter, prior to blood sampling, post blood transfusion or post blood sampling documented in this encounter Additional Health Concerns Assessment Noted Time PHQ-9 Depression Total Score: 21 05/22/2021 2:05 PM CD T documented as of this encounter Care Teams Lost Charge Card Clerk Relationship Specialty Start Date End Date Fadia Merchant M.D. PCP - General Family Medicine 05/05/[address] [place] [address] [place] [address] documented as of this encounter
--- OUTSIDE RECORDS SUMMARY | 2021-11-07 19:44 | XMS_ITS | Encounter Summary ---
:1980 Author Organization [facility] Address [address] [place] [address] Care Team Providers Name Role Phone Fadia Merchant M.D. Primary Care Provider Reason for Visit Reason Comments Blood Pressure Check Encounter Details Date Type Department Care Team Description 05/29/2021 Nurse Only Department of Family Juliana Schmidt Blo od Pressure Check Medicine, [facility], in [facility] [address] [place], [place] [address] [facility] [address] [address] [place] [address] Social History Tobacco Use Types Packs/Day Years Used Date Smoking Tobacco: Never Smokeless Tobacco: Never Sex Assigned at Date Recorded Not on file documented as of this encounter Last Filed Vital Signs Vital Sign Reading Time Taken Comments Blood Pressure 128/88 05/29/2021 4:43 PM CDT Pulse 105 05/29/2021 4:43 PM CDT Temperature - - Respiratory Rate - - Oxygen Saturation - - Inhaled Oxygen Concentration - - Weight - - Height - - Body Mass Index - - documented in this encounter Progress Notes Juliana Schmidt R.N. - 05/29/2021 3:45 PM CDT The patient is seen today for a blood pressure measurement and heart rate check. The patient is not taking a medication to alter their blood pressure. The patient brought no home readings with them today The patient states they are currently having the following symptoms:increased heart rate. This is not a new symptom, patient notes that her heart rate always increases with minimal exertion. Spoke withDr. Sarabia as patient has no other symptoms, no SOB, no chest pain, no dizziness, he is ok with letting her go. Based on today's readings: The care team RN evaluated the patient and discussed with PCP. Patient had questions about increased heart rate and sedentary lifestyle and weight. Discussed walking and increasing activity documented in this encounter Plan of Treatment Upcoming Encounters Date Type Specialty Care Team Description 11/09/2021 Office Visit Family Medicine Fadia Merchant M.D. 300 [place] [address] (Wo rk) 11/10/2021 Office Visit Family Medicine Zacarias Sarabia M.B.B.S., M.D. [address] [place] [phone] (Wo rk) 11/11/2021 Comprehensive Visit Orthopedic Surgery Ivan Deng M.D. [address], [place] [phone] (Wo rk) documented as of this encounter Visit Diagnoses Diagnosis Health Instruction Exam - Primary Pain Knee Left - Primary documented in this encounter Additional Health Concerns Assessment Noted Time PHQ-9 Depression Total Score: 21 05/22/2021 2:05 PM CD T documented as of this encounter Care Teams Photographer Model Relationship Specialty Start Date End Date Fadia Merchant M.D. PCP - General Family Medicine 05/05/21 [address] [place] [phone] documented as of this encounter
--- OUTSIDE RECORDS SUMMARY | 2021-11-07 19:44 | XMS_ITS | Encounter Summary ---
:1980 Author Organization [facility] Address [address] [place] [address] Care Team Providers Name Role Phone Fadia Merchant M.D. Primary Care Provider Encounter Details Date Type Department Care Team Description 05/25/2021 Orders Only Pharmacy Prior Auth [facility] [phone] Social History Tobacco Use Types Packs/Day Years Used Date Smoking Tobacco: Never Smokeless Tobacco: Never Sex Assigned at Date Recorded Not on file documented as of this encounter Plan of Treatment Upcoming Encounters Date Type Specialty Care Team Description 11/09/2021 Office Visit Family Medicine Fadia Merchant M.D. [address] [place] [address] (Andrew ramirez) 11/10/2021 Office Visit Family Medicine Zacarias Sarabia M.B.B.S., M.D. [address] [place] [address] (Andrew ramirez) 11/11/2021 Comprehensive Visit Orthopedic Surgery Ivan Deng M.D. [address] [place], [place] [phone] (Andrew ramirez) documented as of this encounter Visit Diagnoses Not on filedocumented in this encounter Additional Health Concerns Assessment Noted Time PHQ-9 Depression Total Score: 21 05/22/2021 2:05 PM CD T documented as of this encounter Care Teams Spinner Fixer Relationship Specialty Start Date End Date Fadia Merchant M.D. PCP - General Family Medicine 05/05/[address] [place] [address] [place] [address] documented as of this encounter
--- OUTSIDE RECORDS SUMMARY | 2021-11-07 19:44 | XMS_ITS | Encounter Summary ---
:1980 Author Organization [facility] Address [address] [place] [address] Care Team Providers Name Role Phone Fadia Merchant M.D. 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 [facility] Lyle Pena M.D. [address] [place] [address] Referral ID Status Reason Start Date Expiration Date Visits Requ ested Visits Authorized [id number] Closed 07/14/2021 07/14/2022 1 1 Reason for Visit Reason Comments follow up Depression and back pain. 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 [facility] Lyle Pena M.D. [address] [place] [address] Referral ID Status Reason Start Date Expiration Date Visits Requ ested Visits Authorized [id number] Closed 05/22/2021 05/22/2022 1 1 Encounter Details Date Type Department Care Team Description 07/14/2021 Office Visit Department of Family Cornell Zacarias Morb id Obesity Body Mass Index 50.0-59.9 Adult (HCC) (Primary Dx); Medicine, Becky Knox, Depress ion 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 Psychotic Features (HCC); Clinic, in [place] Pain Low Back Chronic; [place] [address] [facility] [address] PreDiabetes [address] [place] [phone] Social History Tobacco Use Types Packs/Day Years Used Date Smoking Tobacco: Never Smokeless Tobacco: Never Sex Assigned at Date Recorded Not on file documented as of this encounter Last Filed Vital Signs Vital Sign Reading Time Taken Comments Blood Pressure 134/88 07/14/2021 3:17 PM CDT average Pulse 114 07/14/2021 3:17 PM CDT Temperature 36.2 ??C (97.2 ??F) 07/14/2021 3:17 PM CDT Respiratory Rate 16 07/14/2021 3:17 PM CDT Oxygen Saturation 96% 07/14/2021 3:17 PM CDT Inhaled Oxygen Concentration - - Weight 169 kg (373 lb 5.6 oz) 07/14/2021 3:17 PM CDT Height 170 cm (5' 6.93) 07/14/2021 3:17 PM CDT Body Mass Index 58.6 07/14/2021 3:17 PM CDT documented in this encounter Progress Notes Zacarias Sarabia M.B.BEliseoSVannessa Gomes - 07/14/2021 3:00 PM CDT SUBJECTIVE CHIEF COMPLAINT / REASON FOR VISIT Narinder Lucas is a 40 y.o. female who presents for evaluation of follow up (Depression and back pain. Back pain will come and go). HISTORY OF PRESENT ILLNESS Narinder Lucas is a morbidly obese 40-year-old female with a history of depression here for follow-up. At her last visit, she was started on fluoxetine 20 mg daily and trazodone 50 mg at night. She reports inconsistency with her medications. She sometimes forgets to take her fluoxetine. She uses trazodone as needed. Patient is morbidly obese and interested in weight loss. She admits limited physical activity. She reports shortness of breath and fatigue with minimal exertion. She had a stress test recently which was negative. Her last A1c was 6.2 which indicates high risk for diabetes. She denies episodes of hypoglycemia. She denies urinary frequency, polyuria or polydipsia. She denies chest pain, palpitations, PND orthopnea. PHQ-9 score 15. Patient denies suicidal or homicidal ideations. The following portions of the patient's history were reviewed and updated as appropriate: allergies,current medications, family history, medical history, social history, surgical history and problem list. REVIEW OF SYSTEMS Pertinent items are noted in HPI. OBJECTIVE BP 134/88 (BP Location: Right arm, Patient Position: Sitting, Cuff Size: Large) Comment: average Pulse (!) 114 Temp 36.2 ??C (Temporal) Resp 16 Ht 170 cm Wt (!) 169 kg SpO2 96% BMI 58.60 kg/m?? PHYSICAL EXAM General Appearance: healthy, alert, no distress, cooperative. Skin: skin color, texture, turgor normal, no [...] cooperative. Appearance: Well groomed Behaviors: pleasant, interactive, not tearful Memory: intact Cooperation: reliable, forthcoming Affect: [...] 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 Psychotic Features ([facility]) #2 Morbid Obesity Body Mass Index 50.0-59.9 Adult ([facility]) #3 Pain Low Back Chronic #4 PreDiabetes 40-year-old female here for follow-up. Patient is on for fluoxetine 20 mg daily. Although she has not been consistent with this medication,I will still increase it to 40 mg daily. She will follow-up with me in 1 month. She has an appointment with Psychiatry in [place] in 2 weeks which she intends to keep. Over the next month, we discussed the importance of regular exercise both as adjunctive therapy for depression and necessary for weight loss. I will also start her on semaglutide 0.25 mg daily. Will increase this to 0.5 mg in 1 month. She will follow-up with me in 1 month. documented in this encounter Plan of Treatment Upcoming Encounters Date Type Specialty Care Team Description 11/09/2021 Office Visit Family Medicine Fadia Merchant M.D. [address] [place] [address] (Andrew ramirez) 11/10/2021 Office Visit Family Medicine Zacarias Sarabia M.B.B.S., M.D. [address] [place] [address] (Andrew ramirez) 11/11/2021 Comprehensive Visit Orthopedic Surgery Ivan Deng M.D. [address], [place] [phone] (Andrew ramirez) Scheduled Referrals Name Type Priority Associated Diagnoses Order S [facility] Family Medicine Outpatient Referral Routine Depression Major E xpected: office visit Single Episode 08/13/2021 (clinic) Severe Without (Approximate) , Psychotic Features Expires: ([facility]) 10/14/2022 Morbid Obesity Body Mass Index 50.0-59.9 Adult (HCC) Pain Low Back Chronic PreDiabetes documented as of this encounter Visit Diagnoses Diagnosis Morbid Obesity Body Mass Index 50.0-59.9 Adult (HCC) - Primary Depression Major Single Episode Severe W ithout Psychotic Features (HCC) Pain Low Back Chronic PreDiabetes Pain Knee Left - Primary documented in this encounter Additional Health Concerns Assessment Noted Time PHQ-9 Depression Total Score: 15 07/14/2021 3:46 PM CD T documented as of this encounter Care Teams Card Placer Relationship Specialty Start Date End Date Fadia Merchant M.D. PCP - General Family Medicine 05/05/[address] [place] [phone] documented as of this encounter
--- OUTSIDE RECORDS SUMMARY | 2021-11-07 19:44 | XMS_ITS | Encounter Summary ---
:1980 Author Organization [facility] Address [address] [place] [address] Care Team Providers Name Role Phone Fadia Merchant M.D. Primary Care Provider Encounter Details Date Type Department Care Team Description 06/30/2021 Clinical Communication Department of Kalyn Becker, Medicine, [place] [facility], in [address] [address] [place], [place] [phone] [address] (Work) [phone] Social History Tobacco Use Types Packs/Day Years Used Date Smoking Tobacco: Never Smokeless Tobacco: Never Sex Assigned at Date Recorded Not on file documented as of this encounter Miscellaneous Notes Telephone Encounter - Esha Hoover L.P.N. - 07/02/2021 10:13 AM CDT SUBJECTIVE CHIEF COMPLAINT / REASON FOR CALL No chief complaint on file. Information Discussed Patient was reached, she would like to be seen in [place] as her first choice, if she is not able to be seen sooner, she would like to go to [facility]. I attempted to transfer to [facility], was on hold for over 6 min. Patient disconnected. I did ask her to call back if we got disconnected. PLAN Disposition/Recommendation: N/A Information/Education: N/A Caller agreeable to plan of care: N/A The following references were used: none Telephone Encounter - Ivonne English L.PEliseoNEliseo - 07/01/2021 9:32 AM CDT Attempted to contact Narinder to find out where she would like referral to dermatology sent. Telephone Encounter - Barb Peterson - 06/30/2021 4:03 PM CDT ORDER/LAB/REFERRAL REQUEST: Name of test/referral/order requested: Dermatology referral Reason for request: Patient states her face is very dry Date needed: soon Routing: -Order and Lab requests go to [facility] PCP PANEL MANAGERS -Referral Requests go to PCPs PSYCHOLOGY PROFESSOR pool ??? Please pend orders prior to routing to PCP/Provider ??? DOS/PASS are encouraged to pend orders prior to forwarding message documented in this encounter Plan of Treatment Upcoming Encounters Date Type Specialty Care Team Description 11/09/2021 Office Visit Family Medicine Fadia Merchant M.D. [address] [place] [address] (Andrew ramirez) 11/10/2021 Office Visit Family Medicine Zacarias Sarabia M.B.B.S., M.D. [address] [place] [address] (Andrew ramirez) 11/11/2021 Comprehensive Visit Orthopedic Surgery Ivan Deng M.D. [address] [place], [place] [phone] (Andrew ramirez) documented as of this encounter Visit Diagnoses Not on filedocumented in this encounter Additional Health Concerns Assessment Noted Time PHQ-9 Depression Total Score: 21 05/22/2021 2:05 PM CD T documented as of this encounter Care Teams Sr. Manager Relationship Specialty Start Date End Date Fadia Merchant M.D. PCP - General Family Medicine 05/05/[address] [place] [address] [place] [phone] documented as of this encounter
--- OUTSIDE RECORDS SUMMARY | 2021-11-07 19:44 | XMS_ITS | Encounter Summary ---
:1980 Author Organization [facility] Address [address] [place] [address] Care Team Providers Name Role Phone Shreya Dean M.D. Primary Care Provider Encounter Details Date Type Department Care Team Description 03/17/2018 Clinical Communication Department of [facility]assie Gal[facility] [place] [place] [address] [place] [id number] Social History Tobacco Use Types Packs/Day Years Used Date Smoking Tobacco: Never Smokeless Tobacco: Never Sex Assigned at Date Recorded Not on file documented as of this encounter Miscellaneous Notes Telephone Encounter - Kassie Galarza L.PAndrew. - 03/30/2018 7:54 AM REGIONAL BRANCH MANAGER Patient returned call and requested that script for CPAP supplies be faxed to [facility] at fax number [phone]. Script , sleep study results, Dr. Michaud's dictation from 02/16/18 and 11/04/17 along with 's dictation from 09/23/17 [facility]. ONAL BRANCH MANAGER Telephone Encounter - Kassie Galarza L.P.N. - 03/29/2018 9:03 AM REGIONAL BRANCH MANAGER Contacted [employer]. Patient stated she is checking with other suppliers. Will call back when she has that information. ONAL BRANCH MANAGER Telephone Encounter - Kassie Galarza L.P.N. - 03/28/2018 3:39 PM REGIONAL BRANCH MANAGER Contacted [facility] in regards to message. Was informed that patient just needs to have a credit or debit card on file. Machine is rent to own. Need to put a sarah on the card to confirm that card is valid. Was given dates that patient can schedule to flower picker supplies: at 10 a.m. Or 2 p.m. Appointments last for 45 minutes. Left message for patient to return my call. ONAL BRANCH MANAGER Telephone Encounter - Carolina David - 03/28/2018 11:03 AM CST Reason for Communication: Patient calling in and states that she has some questions regarding her C-Pap machine. Patient states that the [facility] [employer] is stating that she owes $200 for her machineand states that she talked with her insurance company and they cover it 100%. She wants to know if she has the right prescription. Would like a call back. Please advise. Current Can Nursing/Provider leave a detailed message: Did the patient refuse triage through Nurse line? (for symptom based concerns) Action Needed: Call back Name of Medication (if relevant): ONAL BRANCH MANAGER Telephone Encounter - Kassie Galarza L.P.N. - 03/17/2018 4:28 PM REGIONAL BRANCH MANAGER Patient returned call. Instructed patient that I would contact [facility] to see if we could straighten out the issue for her not getting her CPAP machine. Contacted [facility] . Reviewed last sleep study and script. Patient can call and schedule time to flower picker supplies. Contacted patient and instructed to call [facility] at [phone]. ONAL BRANCH MANAGER Telephone Encounter - Kassie Galarza L.P.N. - 03/17/2018 3:51 PM REGIONAL BRANCH MANAGER Received call from call center that patient has not received her CPAP. Patient disconnected during transfer. Attempted to return call. Left message to return my call. ONAL BRANCH MANAGER documented in this encounter Plan of Treatment Upcoming Encounters Date Type Specialty Care Team Description 11/09/2021 Office Visit Family Medicine Fadia Merchant M.D. [address] [place] [phone] (Wo rk) 11/10/2021 Office Visit Family Medicine Zacarias Sarabia M.B.B.S., M.D. [address] [place] [phone] (Wo rk) 11/11/2021 Comprehensive Visit Orthopedic Surgery Ivan Deng M.D. [address] [phone] (Wo rk) documented as of this encounter Visit Diagnoses Not on filedocumented in this encounter Additional Health Concerns Assessment Noted Time PHQ-9 Depression Total Score: 9 12/26/2017 3:39 PM REGIONAL BRANCH MANAGER documented as of this encounter Care Teams Senior Windows Administrator Relationship Specialty Start Date End Date Shreya Dean M.D. PCP - General Family Medicine 12/14/17 01/07/19 documented as of this encounter
--- OUTSIDE RECORDS SUMMARY | 2021-11-07 19:44 | XMS_ITS | Encounter Summary ---
:1980 Author Organization [facility] Address [address] [place] [address] Care Team Providers Name Role Phone Fadia Merchant M.D. Primary Care Provider Reason for Visit Appointment Request (Routine) - Closed Specialty Diagnoses / Procedures Referred By Contact Refer red To Contact Family Medicine Referral ID Status Reason Start Date Expiration Date Visits Requ ested Visits Authorized [id number] Closed 05/20/2021 05/20/2022 1 1 Encounter Details Date Type Department Care Team Description 05/22/2021 Office Visit Department of Family DillardLani APRN, [facility], [facility], C.N.P. in [facility] [address] [place] [address] Social History Tobacco Use Types Packs/Day Years Used Date Smoking Tobacco: Never Smokeless Tobacco: Never Sex Assigned at Date Recorded Not on file documented as of this encounter Plan of Treatment Upcoming Encounters Date Type Specialty Care Team Description 11/09/2021 Office Visit Family Medicine Fadia Merchant M.D. [address] [place] [phone] (Wo rk) 11/10/2021 Office Visit Family Medicine Zacarias Sarabia M.B.BEliseoSEliseo, MPamela [address] [place] [address] (Wo rk) 11/11/2021 Comprehensive Visit Orthopedic Surgery Ivan Deng M.D. [address] [place], [place] [phone] (Wo rk) documented as of this encounter Visit Diagnoses Not on filedocumented in this encounter Additional Health Concerns Assessment Noted Time PHQ-9 Depression Total Score: 21 05/22/2021 2:05 PM CD T documented as of this encounter Care Teams It Security Analyst Relationship Specialty Start Date End Date Fadia Merchant M.D. PCP - General Family Medicine 05/05/[address] [place] [address] [place] [phone] documented as of this encounter
--- OUTSIDE RECORDS SUMMARY | 2021-11-07 19:45 | XMS_ITS | Encounter Summary ---
:1980 Author Organization [facility] Address [address] [place] [address] Care Team Providers Name Role Phone Shreya Dean M.D. Primary Care Provider Reason for Visit Reason Comments Medication Visit Encounter Details Date Type Department Care Team Description 12/26/2017 Office Visit Department of Family Shreya Dean Mor bid Obesity Body Mass Index Greater Than Or Equal To 40 Adult (HCC) (Primary Dx); Medicine, Kasandra Hurd Obstructive Sleep Apnea Adult; Clinic, in [place] [address] Depression Major Recurrent (HCC) [place], [place] [address] [address] [place], [place] [phone] (Work) [phone] Social History Tobacco Use Types Packs/Day Years Used Date Smoking Tobacco: Never Smokeless Tobacco: Never Sex Assigned at Date Recorded Not on file documented as of this encounter Last Filed Vital Signs Vital Sign Reading Time Taken Comments Blood Pressure 112/64 12/26/2017 2:59 PM TRANSPORTATION DEPARTMENT SUPERVISOR Pulse 80 12/26/2017 2:59 PM TRANSPORTATION DEPARTMENT SUPERVISOR Temperature 36.1 ??C (97 ??F) 12/26/2017 2:59 PM TRANSPORTATION DEPARTMENT SUPERVISOR Respiratory Rate 16 12/26/2017 2:59 PM TRANSPORTATION DEPARTMENT SUPERVISOR Oxygen Saturation - - Inhaled Oxygen Concentration - - Weight 150 kg (329 lb 12.9 oz) 12/26/2017 2:59 PM TRANSPORTATION DEPARTMENT SUPERVISOR Height - - Body Mass Index 52.38 12/14/2017 2:34 PM TRANSPORTATION DEPARTMENT SUPERVISOR documented in this encounter Progress Notes Shreya Dean M.D. - 12/26/2017 3:15 PM CST CHIEF COMPLAINT/REASON FOR VISIT Multiple issues HISTORY OF PRESENT ILLNESS This 37-year old female presents to clinic secondary to multiple issues. She recently had a sleep study. She is noted to have sleep apnea. She is planning to follow up with Dr. Michaud for review of her sleep study in February 2018 as this is the earliest appointment available. She was advised to utilizea CPAP unit a couple of years ago when she was at the [facility] but she did not fruit or nut picker the CPAPunit. She trial the CPAP unit the night of the sleep study and had the most restful night she has had in a long time. She continues to feel depressed. She has an autistic child. She has a limited support system. She wonders if she should see a therapist. She trialed sertraline but developed GI distress and is not interested in that product but wonders if she could trial something else. She would be interested in immunization updates. She has lost a couple kilos since her last visit. She is short of breath with any type of vigorous activities and therefore she does not pursue that type of venture. She has no palpitations. Her bowel or bladder changes have remained stable. EMR reviewed. MEDICATION RECONCILIATION Current Outpatient Prescriptions: ??? CHOLECALCIFEROL 1,000 unit tablet, , Disp: , Rfl: ??? oxybutynin (DITROPAN-XL) 5 mg 24 hr tablet, 5 mg., Disp: , Rfl: ??? citalopram (CeleXA) 20 mg tablet, Take 1 tablet (20 mg total) by mouth daily., Disp: 30 tablet, Rfl: 0 ??? omega-3 fatty acids-fish oil 300-1,000 mg capsule, Take 2 g by mouth daily., Disp: , Rfl: No Known Allergies REVIEW OF SYSTEMS Negative review of major organ systems apart from that noted in the HPI and past medical surgical history. Past Medical History: Diagnosis Date ??? Constipation Slow Transit ??? Depression Major Recurrent (HCC) ??? Incontinence Urinary Stress Female ??? Menstrual Irregularity ??? Morbid Obesity Body Mass Index 40.0-44.9 Adult (HCC) ??? Pain Low Back Chronic Past Surgical History: Procedure Laterality Date ??? SECTION N/A 07/30/2013 section PREVENTIVE SERVICES Tobacco use: None. Mammogram: Non applicable secondary to stated age. Pap smear: 01/08/2013 future. Chlamydia: Not applicable secondary to patient's health history. Colon screening: Non applicable secondary to stated age. Depression: Yes, PHQ -9 score 9 Asthma: ??No Lipids: Have been advised. Tdap booster: 07/05/2013 Pneumovax: ??Non applicable secondary to stated age. Influenza: 12/26/2017 DEXA scan: Non applicable secondary to stated age. ?? SOCIAL HISTORY No alcohol Occasional tea with episodic soda Family History Problem Relation Age of Onset ??? Hypertension Father ??? TB - Pulmonary tuberculosis Mother ??? Hyperlipidemia Mother ??? No Known Problems Maternal Grandmother ??? No Known Problems Maternal Grandfather ??? No Known Problems Paternal Grandmother ??? No Known Problems Paternal Grandfather Vitals: 12/26/17 1459 BP: 112/64 BP Location: Left arm Patient Position: Sitting Cuff Size: Large Pulse: 80 Resp: 16 Temp: 36.1 ??C TempSrc: Temporal Weight: (!) 149.6 kg PHYSICAL EXAM General: Neatly dressed well groomed. HEENT: PERRL. EOMs are full. Ears: TMs are sanchez, good visualization of landmarks. Nose: Mucosal membranes pink and moist. Oral: No exudates. Teeth in good condition. No pharyngeal erythema. Mallampati score 4. Neck: Range of motion consistent with patient's stated age body habitus. Trachea midline. Lymph nodes: No cervical adenopathy. Thyroid: No thyroid masses, tenderness or enlargement. Heart: Regular rate and rhythm. No clicks, rubs or murmurs. Lungs: Clear to auscultation. No palpable chest wall masses. MENTAL:?? Speech is of normal rate and volume, articulate, coherent, spontaneous with no notation ofabnormalities.?? Thought processes reveal intact abstract reasoning and computation.?? No loose tangential circumstantial thoughts.?? No hallucinations.?? No delusions.?? No preoccupation with violence.?? No homicidal or suicidal ideations.?? Marked psychosocial somatic ruminations.?? Excellent insight into situation and illness process.?? Oriented to person, place and time.?? Recent and remote memory are intact.?? Attention span and concentration are at baseline.?? Language and fund of knowledge suggest average intellect.?? Mood and affect reflect some evidence of depression, some anxiety, no agitation, no hypomania with some emotional lability.?? LABS AND PROCEDURES [place] score 9 ASSESSMENT/PLAN 1. Sleep apnea-with treatment and evaluation in process 2. Morbid obesity with very limited weight loss 3. Major recurrent depression aggravated by above 1. and 2. Supportive measures discussed in detail. Would recommend following up with neurologist for assessment of a CPAP unit as planned. Follow through with release of information clerk as planned. Patient has considered bariatric surgery but does not have any significant help for care of her children at this time. Card is given for [facility] to arrange a therapy appointment. Will discontinue the sertraline and give trial to citalopram. Risks and benefits of medications discussed. All questions answered. Signs and symptoms to lead to emergent evaluation are reviewed. See the medication reconciliation and preventive services. Recheck plan for about 1 month. She is comfortable with the plan. Spent 20 of the 35 minute visit in discussion. SPORTATION DEPARTMENT SUPERVISOR documented in this encounter Plan of Treatment Upcoming Encounters Date Type Specialty Care Team Description 11/09/2021 Office Visit Family Medicine Fadia Merchant M.D. [address] [place] [address] (Andrew ramirez) 11/10/2021 Office Visit Family Medicine Zacarias Sarabia M.B.B.S., M.D. [address] [place] [address] (Andrew ramirez) 11/11/2021 Comprehensive Visit Orthopedic Surgery Ivan Deng M.D. [address] [place] [phone] (Anrdew ramirez) documented as of this encounter Visit Diagnoses Diagnosis Morbid Obesity Body Mass Index Greater T frias Or Equal To 40 Adult (HCC) - Primary Obstructive Sleep Apnea Adult Depression Major Recurrent (HCC) Pain Knee Left - Primary documented in this encounter Additional Health Concerns Assessment Noted Time PHQ-9 Depression Total Score: 9 12/26/2017 3:39 PM TRANSPORTATION DEPARTMENT SUPERVISOR documented as of this encounter Care Teams Carriage Rider Relationship Specialty Start Date End Date Shreya Dean M.D. PCP - General Family Medicine 12/14/17 01/07/19 documented as of this encounter
--- OUTSIDE RECORDS SUMMARY | 2021-11-07 19:45 | XMS_ITS | Encounter Summary ---
:1980 Author Organization [facility] Address [address] [place] [address] Care Team Providers Name Role Phone Unavailable Primary Care Provider Unavailable Encounter Details Date Type Department Care Team Description 03/15/2016 Hospital Encounter HX [facility] Kristy Singh APRN, R.N. [address] [place] [address] (Wo rk) Social History Tobacco Use Types Packs/Day Years Used Date Smoking Tobacco: Never Sex Assigned at Date Recorded Not on file documented as of this encounter Last Filed Vital Signs Vital Sign Reading Time Taken Comments Blood Pressure 116/69 03/15/2016 11:21 AM RESIDENTIAL SOLAR CONSULTANT Pulse 93 03/15/2016 11:21 AM RESIDENTIAL SOLAR CONSULTANT Temperature - - Respiratory Rate - - Oxygen Saturation - - Inhaled Oxygen Concentration - - Weight - - Height 172 cm (5' 7.72) 03/15/2016 11:21 AM RESIDENTIAL SOLAR CONSULTANT Body Mass Index - - documented in this encounter Progress Notes Rajani Singh APRN, R.N. - 03/15/2016 11:17 AM CST UROL-LE CHIEF COMPLAINT/REASON FOR VISIT Urinary leakage and nocturnal enuresis. HISTORY OF PRESENT ILLNESS Narinder is a pleasant 35-year-old female here today for a consultation regarding nocturnal enuresis and polydipsia. She has had issues with leakage since she was a girl. She states that she was 17 years old when she started having urinary leakage. She states that she leaks with bending and coughing. At this time she is also overweight. She is planning on working toward weight loss surgery. She was previously on desmopressin for her nocturnal enuresis with no improvement. She has also been on Detrol LAand she has not found help with this. She is not at this time but is hoping to get in the future and have more children. She is seeing Dr. Salas for her OB needs. She is otherwise quite healthy and is hoping that she can get some assistance with this. MEDICATIONS vitamins. ALLERGIES No known drug allergies. PAST MEDICAL/SURGICAL HISTORY Constipation, obstructive sleep apnea, GERD, dysthymia, incontinence, irregular menses, pelvic pain. VITAL SIGNS Temperature 36.4, heart rate 93, blood pressure 116/69. Height 172 cm, actual weight 140.4 kg, BMI is 47. Not a tobacco user. PHYSICAL EXAMINATION GENERAL: Well-developed, well-nourished, well-groomed 35-year-old female, in no acute distress. She is alert, cooperative and oriented x3. HEAD: Normal appearance. No abnormalities. NECK: Symmetrical and supple. CARDIAC: Regular rate, regular rhythm. RESPIRATORY: Respirations unlabored. Normal respiratory rate. Normal respiratory movement. ABDOMEN: Soft, nontender, nondistended. EXTREMITIES: Warm without edema or ulcerations. GENITOURINARY: Skin turgor and color are appropriate for region. No evidence of leak with cough or with Valsalva. IMPRESSION/REPORT/PLAN 1. Stress and urge incontinence. 2. Urinary frequency. 3. Nocturia. At this time we discussed the possibility of medications for her urinary urge incontinence as well as her nocturia. She would like to try a medication that she has not tried yet as she has not had any luck with desmopressin or with Detrol. At this time we will place her on oxybutynin 10 mg oral extended-release tablet, 1 tablet daily. We also discussed that for stress incontinence there is not a pillthat will fix that and this is the leaking that she has when she coughs, when lifts things, or is doing any sort of exercise. We discussed that a mid-urethral sling is the surgical option for this but we would rather wait to do this until after she is done bearing children. We did discuss the possibility of pelvic floor physical therapy. This is something that she is interested in and would like to give this a try. Orders will be sent to [facility] and we will see her back in clinic in approximately 6 to 8 weeks to see how she is doing. If she has any questions or needs anything prior to that, she will contact us. Otherwise, we will see her again in 6 to 8 weeks. Rajani Singh N.P./scott Electronically Signed By: RAJANI SINGH APRN, RN On: 03/29/2016 04:30 PM Source: [facility] MHSDOLBEYNONJANNETTESYS Document Id: [id number] DENTIAL SOLAR CONSULTANT documented in this encounter Nursing Notes Rajani Singh APRN, R.N. - 03/15/2016 11:53 AM CST Ambulatory Patient Education The following Patient Education Materials have been given to the patient: Patient Education Materials: Urology Overactive Bladder Syndrome (OAB) Urology Overactive Bladder Syndrome (OAB) Your health care provider has told you that you have overactive bladder syndrome (OAB). Why OAB occurs is not known. But treatments are available to help control the bladder muscle and manage OAB. Readon to learn more. What Is Overactive Bladder Syndrome? Normally, urine stays in the bladder until a person decides to release it. With OAB, the bladder muscles contract involuntarily, causing a sudden urge to urinate and even urine leakage. OAB causes the bladder muscle to contract (squeeze involuntarily). This causes an intense urge to urinate, known as urgency. Urgency can occur many times during the day and night. In some cases, accidental urine leakage occurs with the urgency. This is called urge incontinence, which is the inability to control the urinary bladder function. There are many types of incontinence, urge incontinence being one of then. A disease that affects the bladder nerves, such as multiple sclerosis, can lead to OAB. Other conditions, such as urinary tract infection (UTI) or prostate problems in men, can lead to OAB. But the exact cause of OAB is often not known. How Is Overactive Bladder Syndrome Diagnosed? Your health care provider examines you and asks about your symptoms and health history. You may alsohave one or more of the following: ?? Urine test to take samples of urine and have them checked for problems. ?? Urinary diary to record how much fluid you take in and urinate out in a three day period. ?? Bladder ultrasound to study the bladder as it empties. Ultrasound uses sound waves to create detailed images of the inside of the body. ?? Cystoscopy to allow the health care provider to look for problems in the urinary tract. The test uses a thin, flexible scope called a cystoscope with a light and camera on the end. The scope is inserted into the urethra (the tube that carries urine out of the body). ?? Urodynamic studies, a battery of tests designed to measure and record many aspects of urinary bladder function, including pressures, volume, and urine flow. How Is Overactive Bladder Syndrome Treated? Treatment depends on the cause and severity of your OAB. Treatments may include the following: ?? Changing urination habits may be suggested. For instance, your health care provider may suggest that you urinate as soon as you feel the urge. You may also need to limit how much fluid you have during the day. ?? Exercising your pelvic muscles can help strengthen muscles used during urination. These exercisesare called Kegels. They involve racquel as if you were stopping your urine stream and tighteningyour rectum as if trying not to pass gas. Your health care provider can help you learn how to do Kegels. ?? Biofeedback to help you learn to control the movement of your bladder muscles. Sensors are placedon your abdomen. They turn signals given off by your muscles into lines on a computer screen. ?? Medication may be given to relax the bladder muscle. Medication can also help ease bladder contractions, which reduces the urge to urinate. ?? Neuromodulation may be done if medication and behavioral changes dont work. Electrical pulses aresent to the sacral nerves (nerves that affect the pelvic area). These pulses help relieve OAB and urge incontinence. ?? Surgery to make the bladder larger may be done in severe cases. What Are the Long-Term Concerns? With treatment, OAB can be managed. A condition, such as UTI, that has caused you to have OAB will be treated. Treatment may involve taking medications for months or years. You may also need to make changes in your daily routine. This may include going to the bathroom more often than you think you need to. Or, you may need to cut back on caffeine and alcohol because these can make OAB symptoms worse.Your health care provider can tell you more. Call the health care provider right away if you have any of the following: Fever of 100.4??F or higher No improvement with treatment Trouble urinating because of pain Back or abdominal pain ?? [phone] [facility], [address] [place] [address], [place] [address]. All rights reserved. This information is not intended as a substitute for professional medical care. Always follow your healthcare professional's instructions. This document has images extracted. Please consider using [employer] for all your patient education needs. Source: [facility] Document Id: [id number] DENTIAL SOLAR CONSULTANT Kath Kemp L.P.N. - 03/15/2016 11:27 AM CST Urology Intake Urology Intake Entered On: 03/15/2016 11:29 RESIDENTIAL SOLAR CONSULTANT Performed On: 03/15/2016 11:27 RESIDENTIAL SOLAR CONSULTANT by KATH KEMP LPN Urology Intake Symptoms with Urination : Burning, Frequency Incontinent of Urine : No KATH KEMP LPN - 03/15/2016 11:27 RESIDENTIAL SOLAR CONSULTANT Urology Intake Grid Does coughing cause you to lose urine? : Sometimes Does coughing hard cause you to lose urine? : Sometimes Does sneezing cause you to lose urine? : Often Does lifting things cause you to lose urine? : Never Does bending cause you to lose urine? : Often Does laughing cause you to lose urine? : Often Does walking briskly or jogging cause you to lose urine? : Never Does straining if you are constipated cause you to lose urine? : Sometimes Does getting up from a sitting to standing position cause you to lose urine? : Never KATH KEMP LPN - 03/15/2016 11:27 RESIDENTIAL SOLAR CONSULTANT Have or Had the Following : Abnormal menstrual periods, Diagnosed with Frequent UTIs : No More than Two UTI's in 12 Months : No KATH KEMP LPN - 03/15/2016 11:27 RESIDENTIAL SOLAR CONSULTANT Source: [facility] Document Id: [id number] RESIDENTIAL SOLAR CONSULTANT!17 DENTIAL SOLAR CONSULTANT documented in this encounter Miscellaneous Notes Miscellaneous - Rajani Singh APRN, R.N. - 03/15/2016 11:53 AM RESIDENTIAL SOLAR CONSULTANT Ambulatory Patient Summary [address] [id number] Visit Information Name: NARINDER LUCAS [facility] Number: [id number] Current Date: 03/15/2016 11:53:54 Physicians Attending Provider: RAJANI SINGH APRN sales communications manager Provider: PCP, SLADE NARINDER LUCAS has been given the following list of follow-up instructions, medication list, and patient education materials: Follow-up Instructions Your Medications Here is a list of your medications. It is important to take your medications as directed. Use a pillbox or chart to help remind you to take your medications. Please let your doctor or nurse know if you have problems taking your medications. Medication/Strength How to Take Indications/Special Instructions/Comments/Notes for Patient Medication Changes/Routing multivitamin, ( Multivitamins oral tablet) 1 Tablet(s), Oral, once a day oxybutynin (oxybutynin 10 mg/24 hr oral tablet, extended release) 1 Tablet(s), Oral, once a day New Routed to [address] [id number] Stop Taking the Following Medications: Medication list as of 03-15-16 11:53 Attention: If you have any medications at home that are not on this list, DO NOT take them until youcontact your provider for clarification. Give a copy of your medication list to your primary care provider. Update your medication list any time medications or doses are changed and carry your medication list at all times in case of emergency. Electronically Signed By: RAJANI SINGH APRN RN Signed On:15-MAR-2016 11:53:35 Your Allergies & Intolerances Substance Reaction Symptoms Category Comments No Known Allergies Drug Your Problem List Problem Status Onset Comments Acne Vulgaris Active 02/28/2008 Xerosis Active 02/28/2008 Constipation NOS Active 12/05/2008 Dysthymic Disorder (300.4) Active Incontinence Active Irregular menses Active Obesity NOS Active Vitamin D deficiency, unspecified Active 12/13/2011 Low back pain Active 01/04/2012 Disease Gastroesophageal Reflux (GERD DARLIN) Active Tb Latent Active Pain Pelvic Female Active Body mass index (BMI) 45.0-49.9, adult Active 03/02/16 Rule activated problem due to BMI 45-49 posted on 03/02 at 10:28 RESIDENTIAL SOLAR CONSULTANT. Apnea Sleep Obstructive (CAMRYN) Active Your Upcoming Appointments Date Time Location Provider 05/04/2016 11:30 [facility] [employer] Katy Salas MD Attention: Contact your local Clinic if further appointment detail needed. Overactive Bladder Syndrome (OAB) Your health care provider has told you that you have overactive bladder syndrome (OAB). Why OAB occurs is not known. But treatments are available to help control the bladder muscle and manage OAB. Readon to learn more. What Is Overactive Bladder Syndrome? Normally, urine stays in the bladder until a person decides to release it. With OAB, the bladder muscles contract involuntarily, causing a sudden urge to urinate and even urine leakage. OAB causes the bladder muscle to contract (squeeze involuntarily). This causes an intense urge to urinate, known as urgency. Urgency can occur many times during the day and night. In some cases, accidental urine leakage occurs with the urgency. This is called urge incontinence, which is the inability to control the urinary bladder function. There are many types of incontinence, urge incontinence being one of then. A disease that affects the bladder nerves, such as multiple sclerosis, can lead to OAB. Other conditions, such as urinary tract infection (UTI) or prostate problems in men, can lead to OAB. But the exact cause of OAB is often not known. How Is Overactive Bladder Syndrome Diagnosed? Your health care provider examines you and asks about your symptoms and health history. You may alsohave one or more of the following: ?? Urine test to take samples of urine and have them checked for problems. ?? Urinary diary to record how much fluid you take in and urinate out in a three day period. ?? Bladder ultrasound to study the bladder as it empties. Ultrasound uses sound waves to create detailed images of the inside of the body. ?? Cystoscopy to allow the health care provider to look for problems in the urinary tract. The test uses a thin, flexible scope called a cystoscope with a light and camera on the end. The scope is inserted into the urethra (the tube that carries urine out of the body). ?? Urodynamic studies, a battery of tests designed to measure and record many aspects of urinary bladder function, including pressures, volume, and urine flow. How Is Overactive Bladder Syndrome Treated? Treatment depends on the cause and severity of your OAB. Treatments may include the following: ?? Changing urination habits may be suggested. For instance, your health care provider may suggest that you urinate as soon as you feel the urge. You may also need to limit how much fluid you have during the day. ?? Exercising your pelvic muscles can help strengthen muscles used during urination. These exercisesare called Kegels. They involve racquel as if you were stopping your urine stream and tighteningyour rectum as if trying not to pass gas. Your health care provider can help you learn how to do Kegels. ?? Biofeedback to help you learn to control the movement of your bladder muscles. Sensors are placedon your abdomen. They turn signals given off by your muscles into lines on a computer screen. ?? Medication may be given to relax the bladder muscle. Medication can also help ease bladder contractions, which reduces the urge to urinate. ?? Neuromodulation may be done if medication and behavioral changes dont work. Electrical pulses aresent to the sacral nerves (nerves that affect the pelvic area). These pulses help relieve OAB and urge incontinence. ?? Surgery to make the bladder larger may be done in severe cases. What Are the Long-Term Concerns? With treatment, OAB can be managed. A condition, such as UTI, that has caused you to have OAB will be treated. Treatment may involve taking medications for months or years. You may also need to make changes in your daily routine. This may include going to the bathroom more often than you think you need to. Or, you may need to cut back on caffeine and alcohol because these can make OAB symptoms worse.Your health care provider can tell you more. Call the health care provider right away if you have any of the following: Fever of 100.4?F or higher No improvement with treatment Trouble urinating because of pain Back or abdominal pain ?? [phone] [facility], [address] [place] [address], [place] [address]. All rights reserved. This information is not intended as a substitute for professional medical care. Always follow your healthcare professional's instructions. Consider Using [employer] Patient [employer] is a secure online and Mobile application that lets you: ?? View lab and test results ?? View portions of your medical record including clinical notes, immunizations and discharge summaries ?? Request an appointment or medication refill ?? Review your appointment schedule ?? Send secure messages to your care team Its easy to create an account if you dont have one. Go to [email or web address] and click on Create Your Account. Then, follow the directions to complete the online form. Youll be asked for your [facility] number which you can find at the top of this document. Your Goals/Additional instructions: This document has images extracted. Please consider using [employer] for all your patient education needs. Source: [facility] POWERCHART Document Id: [id number] DENTIAL SOLAR CONSULTANT Miscellaneous - Rajani Singh APRN, R.N. - 03/15/2016 11:53 AM RESIDENTIAL SOLAR CONSULTANT Ambulatory Discharge Medication List [address] [id number] Visit Information Name: NARINDER LUCAS [facility] Number: [id number] Current Date: 03/15/2016 11:53:53 Attending Provider: RAJANI SINGH APRN, sales communications manager Provider: PCP, NARINDER LOUIE has been given the following list of medications: Your Medications It is important to take your medications as directed. Use a pill box or chart to help remind you to take your medications. Please let your doctor or nurse know if you have problems taking your medications. Medication/Strength How to Take Indications/Special Instructions/Comments/Notes for Patient Medication Changes/Routing multivitamin, ( Multivitamins oral tablet) 1 Tablet(s), Oral, once a day oxybutynin (oxybutynin 10 mg/24 hr oral tablet, extended release) 1 Tablet(s), Oral, once a day New Routed to [place] [address] [place], [place] [phone] Stop Taking the Following Medications: Medication list as of 03-15-16 11:53 Attention: If you have any medications at home that are not on this list, DO NOT take them until youcontact your provider for clarification. Give a copy of your medication list to your primary care provider. Update your medication list any time medications or doses are changed and carry your medication list at all times in case of emergency. Electronically Signed By: RAJANI SINGH APRN, RN Signed On:15-MAR-2016 11:53:35 Additional Information: Source: [facility] POWERCHART Document Id: [id number] DENTIAL SOLAR CONSULTANT Miscellaneous - Kath Kemp L.P.N. - 03/15/2016 11:21 AM CST Adult School Transportation Director Intake/History Adult School Transportation Director Intake/History Entered On: 03/15/2016 11:25 RESIDENTIAL SOLAR CONSULTANT Performed On: 03/15/2016 11:21 RESIDENTIAL SOLAR CONSULTANT by KATH KEMP LPN Intake Temperature Core : 36.4 DegC(Converted to: 97.5 DegF) (LOW) Peripheral Pulse Rate : 93 /min Systolic Blood Pressure : 116 mmHg Diastolic Blood Pressure : 69 mmHg NIBP Mean : 85 mmHg Chief Complaint : Consult polyuria and nocturnal enuresis- burning sensation, sudden urge, frequency, leakage with KATH KEMP LPN - 03/15/2016 11:25 RESIDENTIAL SOLAR CONSULTANT Onset of Symptoms : 15+ years and worsening BP Location : Right upper extremity Blood Pressure Cuff Size : Large Height : 172 cm(Converted to: 5 ft 8 inch(es), 68 inch(es)) KATH KEMP LPN - 03/15/2016 11:21 RESIDENTIAL SOLAR CONSULTANT General Info Status : Patient denies Are you ? : No KATH KEMP LPN - 03/15/2016 11:25 RESIDENTIAL SOLAR CONSULTANT Information Given By : Patient Preferred Communication Mode : Verbal Languages : Maltese Is Patient Female and 13-50 no hysterectomy : Yes KATH KEMP [facility] - 03/15/2016 11:21 RESIDENTIAL SOLAR CONSULTANT Subjective Pain Symptoms : Yes KATH KEMP [facility] - 03/15/2016 11:25 RESIDENTIAL SOLAR CONSULTANT Pain Scale Pain Scale Verbal 0-10 : Open KATH KEMP [facility] - 03/15/2016 11:25 RESIDENTIAL SOLAR CONSULTANT Pain Pain Assessment Grid Pain 1 Location : Vagina Quality : Burning KATH KEMP [facility] 03/15/2016 11:25 RESIDENTIAL SOLAR CONSULTANT Dependent Habits Exposure to Tobacco Smoke : Other: never Smoking Status : Never smoker Tobacco 2A : No Tobacco Use/Currently Using : No Tobacco Use/Last 30 Days : No Tobacco Use/Last 12 months : No Alcohol Use : No KATH KEMP [facility] 03/15/2016 11:21 RESIDENTIAL SOLAR CONSULTANT Caffeine Use Grid Caffeine Use : Current Type : Coffee Frequency : Occasionally Amount : occ. 1-2x/week 1 c. coffee KATH KEMP [place] [facility] 03/15/2016 11:21 RESIDENTIAL SOLAR CONSULTANT Source: [facility] [employer] Document Id: [id number] RESIDENTIAL SOLAR CONSULTANT!42 DENTIAL SOLAR CONSULTANT documented in this encounter Plan of Treatment Upcoming Encounters Date Type Specialty Care Team Description 11/09/2021 Office Visit Family Medicine Fadia Merchant M.D. [address] [place] [address] (Andrew ramirez) 11/10/2021 Office Visit Family Medicine Zacarias Sarabia M.B.B.S., M.D. [address] [place] [address] (Andrew ramirez) 11/11/2021 Comprehensive Visit Orthopedic Surgery Ivan Deng M.D. [address] [place], [place] [address] (Andrew ramirez) documented as of this encounter Visit Diagnoses Not on filedocumented in this encounter Additional Health Concerns Assessment Noted Time PHQ-9 Depression Total Score: 3 11/10/2015 2:04 PM CDT documented as of this encounter
--- OUTSIDE RECORDS SUMMARY | 2021-11-07 19:45 | XMS_ITS | Encounter Summary ---
:1980 Author Organization [facility] Address [address] [place] [address] Care Team Providers Name Role Phone Unassigned, Pcp Primary Care Provider Unavailable Encounter Details Date Type Department Care Team Description 10/07/2017 Orders Only Department of Family Shilpi Dean M.D. Medicine, [facility], [address] [place] [id number] [address] [place] [address] [phone] Social History Tobacco Use Types Packs/Day Years Used Date Smoking Tobacco: Never Smokeless Tobacco: Never Sex Assigned at Date Recorded Not on file documented as of this encounter Plan of Treatment Upcoming Encounters Date Type Specialty Care Team Description 11/09/2021 Office Visit Family Medicine Fadia Merchant M.D. [address] [place] [address] (Wo rk) 11/10/2021 Office Visit Family Medicine Zacarias Sarabia M.B.B.S., M.D. [address] [place] [address] (Wo rk) 11/11/2021 Comprehensive Visit Orthopedic Surgery Ivan Deng M.D. [address] [place], [place] [phone] (Wo rk) documented as of this encounter Visit Diagnoses Not on filedocumented in this encounter Additional Health Concerns Assessment Noted Time PHQ-9 Depression Total Score: 7 09/25/2017 6:49 AM CDT documented as of this encounter Care Teams Manager Corporate Strategy Relationship Specialty Start Date End Date Unassigned, Pcp PCP - General Family Medicine 09/23/17 12/13/17 documented as of this encounter
--- OUTSIDE RECORDS SUMMARY | 2021-11-07 19:45 | XMS_ITS | Encounter Summary ---
:1980 Author Organization [facility] Address [address] [place] [address] Care Team Providers Name Role Phone Unavailable Primary Care Provider Unavailable Encounter Details Date Type Department Care Team Description 08/06/2016 Hospital Encounter HX NO MAPPING Vera Preston A PRN, R.N. [address] [place], [place] [phone] (Wo rk) Social History Tobacco Use Types Packs/Day Years Used Date Smoking Tobacco: Never Sex Assigned at Date Recorded Not on file documented as of this encounter Miscellaneous Notes Miscellaneous - Conversion, Historical Provider Ser - 08/06/2016 11:59 PM CDT Coding Summary-Paper Based CODING DATE: 08/17/2016 FINAL [facility] STATUS: * Discharged to Home or Self Care PAYOR: Medicaid ADMIT DX: REASON FOR VISIT DX: FINAL DX: PRINCIPAL: R35.0 Frequency of micturition SECONDARY: PROCEDURES DOCTOR NAME DATE NOTE: The code number assigned matches the documented diagnosis and / or procedure in the patient's chart. However, the narrative phrase printed from the coding software may appear abbreviated, or result in slightly different terminology. Coded By: SUZI HARRISON Date Saved: 08/17/2016 01:51 pm [facility] Document Id: [id number] documented in this encounter Plan of Treatment Upcoming Encounters Date Type Specialty Care Team Description 11/09/2021 Office Visit Family Medicine Fadia Merchant M.D. [address] [place] [phone] (Wo rk) 11/10/2021 Office Visit Family Medicine Zacarias Sarabia M.B.B.S., M.D. [address] [place] [address], [place] [phone] (Wo rk) 11/11/2021 Comprehensive Visit Orthopedic Surgery Ivan Deng M.D. [address], [place] [phone] (Wo rk) documented as of this encounter Visit Diagnoses Not on filedocumented in this encounter Additional Health Concerns Assessment Noted Time PHQ-9 Depression Total Score: 3 11/10/2015 2:04 PM CDT documented as of this encounter
--- OUTSIDE RECORDS SUMMARY | 2021-11-07 19:45 | XMS_ITS | Encounter Summary ---
:1980 Author Organization [facility] Address [address] [place] [address] Care Team Providers Name Role Phone Unavailable Primary Care Provider Unavailable Encounter Details Date Type Department Care Team Description 03/14/2015 Hospital Encounter HX [facility] Margarito Soto M .D. Social History Tobacco Use Types Packs/Day Years Used Date Smoking Tobacco: Never Assessed Sex Assigned at Date Recorded Not on file documented as of this encounter Last Filed Vital Signs Vital Sign Reading Time Taken Comments Blood Pressure 116/64 03/14/2015 3:03 PM [facility]OO[facility] Pulse - - Temperature - - Respiratory Rate - - Oxygen Saturation - - Inhaled Oxygen Concentration - - Weight 125 kg (275 lb 12.7 oz) 03/14/2015 3:03 PM [facility] Height 172 cm (5' 7.72) 03/14/2015 3:03 PM [facility] Body Mass Index 42.29 03/14/2015 3:03 PM [facility] documented in this encounter Consult Notes Margarito Soto M.D. - 03/14/2015 2:59 PM CST [id number] CHIEF COMPLAINT/REASON FOR VISIT Pelvic pain. 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 Monique at [facility] in [place]. She is a 34-year-old, G1, P1-0-0-1 female with LMP of 03/05/2015. The patient presents for evaluation and management of some pelvic pain. The patient had a section in 2013 and she reports that since the surgeryshe has had some episodic lower pelvic pain that is random and irregular. It is not associated with activity. She reports that when she gets the pelvic pain it is in the lower pelvis in the midline. She describes this as a sharp stabbing type pain. It is not associated with any activities. It is unrelieved with rest or Tylenol. She reports that given some time the pain symptoms will resolve. The patient reports she has never had these symptoms prior to having the section. The patient deniesany nausea, vomiting, or diarrhea. No change in bowel habits. She denies any constipation. She denies any pain with defecation. The patient denies any difficulty urinating. No dysuria, hematuria or flank pain. She does have urinary incontinence and she does have nocturnal enuresis which is ongoing. The patient reports that her menses occur every 30 to 40 days and last anywhere from 5 to 7 days. She denies menorrhagia or intermenstrual bleeding. She has minimal dysmenorrhea. She reports that her dysmenorrhea symptoms are separate from this sharp pelvic pain. The patient's second concern is for weight gain. She reports that she has gained almost 30 pounds since the of her child in 2013. She is concerned about her weight gain and thinks this may make it difficult for her to get . She and her have been having unprotected intercourse buthave not been actively trying. The patient would like to get in the near future. ALLERGIES No known drug allergies. PAST MEDICAL/SURGICAL HISTORY PAST MEDICAL HISTORY: 1. Morbid obesity. 2. Constipation. 3. Depression. 4. Latent tuberculosis. 5. Vitamin D deficiency. 6. Urinary incontinence. 7. Nocturnal enuresis. PAST SURGICAL HISTORY: section 07/30/2013. PAST OBSTETRICAL HISTORY: section, 07/30/2013, 41 and 2/7 weeks. intolerance of labor. 4167 g, male . SOCIAL HISTORY The patient is . She denies tobacco, alcohol or drug use. No history of STD or PID. VITAL SIGNS Weight 125.1 kg, height 172 cm, blood pressure 116/64, pulse 74, BMI 42. PHYSICAL EXAMINATION GENERAL: Well-developed, well-nourished, obese female, in no apparent distress. Alert and oriented x3. LUNGS: Clear to auscultation bilaterally with good inspiratory effort. HEART: Regular rate and rhythm without murmur. ABDOMEN: Morbidly obese, soft, nontender. Positive bowel sounds. Well-healed Pfannenstiel skin incision. No masses, no tenderness, no rebound, no guarding. PELVIC: Declined by patient. EXTREMITIES: No clubbing, cyanosis, or edema. Nontender bilaterally. SPINE: No CVA tenderness bilaterally. IMPRESSION/REPORT/PLAN 1. Pelvic pain, episodic in nature, unknown etiology. 2. Weight gain after delivery of infant 2013. 3. Multiple medical problems including chronic constipation, depression, latent tuberculosis, vitamin D deficiency, urinary incontinence and enuresis. PLAN: 1. I recommend that we do a pelvic exam so I can assess her uterus and ovaries to see if I can determine the extent of her pelvic pain symptoms. The patient declines pelvic examination. She had a benign abdominal examination today. 2. I therefore recommend that we check a pelvic ultrasound. This is ordered. The patient will go to Radiology to get this scheduled. I will contact the patient with the results of the pelvic ultrasound. 3. I discussed with patient that these random pain symptoms may be secondary to some pelvic adhesions and that they may be associated with her gastrointestinal tract and may not be gynecological in nature. She reports there is no association with her menstrual cycle. 4. I did discuss with the patient her concerns about weight gain. She reports that she has gained approximately 30 pounds since the of her child in 2013. I discussed with the patient that her body mass index is 42 and elevated body mass index such as this are commonly associated with irregular menstruation and anovulation. I reviewed with the patient that irregular menstruation and anovulation is associated with infertility and will make it difficult for her to become . I strongly encouraged the patient to see her primary provider to discuss weight loss management options and dietary recommendations, as well as exercise recommendations for weight loss. I reviewed with the patient that if she is able to lose weight and get her body mass index below 40 there is a very good chance thather menses will become more regular and she will have regular ovulation. 5. I strongly encouraged the patient to start using vitamins prior to actively attempting . 6. I did discuss with patient the possibility of doing some infertility testing. I reviewed with thepatient that [facility] do not cover infertility evaluation and the patient is more than welcome to discuss testing with our business office. With her BMI being over 40, I recommend thatit will be better for her to work on losing weight and get her body mass index is down before doing infertility evaluation as this may be all that she needs to do to resolve her issues. She verbalizes understanding. 7. I will contact patient with results of pelvic ultrasound. 8. I would like the patient to follow up with her primary provider, Dr. Mera Monique for adult preventive services as well as for discussion and assistance with weight loss as mentioned above. 9. I would be happy to see the patient on an as needed basis. Margarito Soto M.D./scott cc: [facility] Mera Monique, [address] [phone] Electronically Signed By: MARGARITO SOTO MD On: 03/19/2015 08:57 AM Source: [facility] MHSDOLBEYNONRADSYS Document Id: [id number] [facility] documented in this encounter Miscellaneous Notes Telephone Encounter - Conversion, Historical Provider Ser - 07/23/2015 4:45 PM CDT *Phone Message/Charles Document Contains Addenda Addendum by FRANCINE CARTY LPN on July 24, 2015 14:28:30 CDT Spoke with patient. She was given test results, and was instructed to take Rx- Provera. She was also instructed to call us back when she starts to bleed. All questions answered. Addendum by FRANCINE CARTY LPN on July 24, 2015 09:56:58 CDT Left message for patient to return call. From: RONY LYNCH To: Obstetrics/Gynecology Nurse; Sent: 07/23/2015 16:45:00 CDT Subject: *Phone Message/Charles Caller is: ( x ) Patient ( ) Mother ( ) Father ( ) Spouse ( ) Daughter ( ) Son ( ) Pharmacy ( ) Other: Physician: Patient MRN #: Reason for Call: Message: Looking for lab results from Tuesday Please call [phone] Advice/Action: Source used: ( ) Verbalizes understanding of instructions ( ) Instructed to call back if symptoms worsen or do not resolve ( ) Refused to see provider ( ) Appointment Scheduled ( ) OK to leave message on voice mail ( ) Patient told to expect return call: ( ) today ( ) tomorrow ( ) next work day ( ) Patient's email ( ) Patient told physician out of office, will call upon return call on ( ) ( ) Patient told physician out of office, routed to other physician ( ) Other ( ) Call back telephone number ( ) Call back cell phone number ( ) Source: [facility] [employer] Document Id: [id number] Margarito Anguiano M.D. - 03/24/2015 10:59 AM CST Normal Results Letter 24 March 2015 NARINDER LUCAS [address] [facility] [address] Dear NARINDER LUCAS, I am pleased to report that your results from the following diagnostic test(s) are back. Your uterus has a fibroid that is 3 cm in size and is otherwise a nomral appearing uterus. Both of your ovaries appear normal. The fibroid may be contributing to your random pelvic pains but it is usually not associated with infertility. Please follow up with us as we discussed during your visit or sooner if you have any concerns. If you have questions or concerns, please do not hesitate to call our office. Result Name Current Result Ultrasound Scanned 03/20/2015 Sincerely, MARGARITO SOTO [address] [facility] [address] [place] [address] Electronic Signature Electronically Signed By: MARGARITO SOTO MD On: 24 March 2015 This document has images extracted. Source: [facility] [employer] Document Id: [id number] Electronically signed by [facility], [facility] Candy Maker [id number] at 07/03/2016 9:57 AM Margarito Anguiano M.D. - 03/14/2015 3:31 PM CST Ambulatory Patient Summary [facility] [address] [place], [place] [id number] Visit Information Name: NARINDER LUCAS [facility] Number: [id number] Current Date: 03/14/2015 15:31:43 Physicians Attending Provider: MARGARITO SOTO MD Primary Care Provider: PCP, NARINDER LOUIE has been given [...] tablet) 1 Tablet(s), Oral, once a day Stop Taking the Following Medications: sertraline (Zoloft 50 mg oral tablet) Medication list as of 03-14-15 15:31 Attention: If you have any medications at home that are not on this list, DO NOT take them until youcontact your provider for clarification. Give a copy of your medication list to your primary care provider. Update your medication list any time medications or doses are changed and carry your medication list at all times in case of emergency. Electronically Signed By: MARGARITO SOTO MD Signed On:14-MAR-2015 15:31:37 Your Allergies & Intolerances Substance Reaction Symptoms [...] Tb Latent Active Pain Pelvic Female Active Your Upcoming Appointments Date Time Location Provider No Appointments found Attention: Contact your local Clinic if further appointment detail needed. Consider Using Patient Online Services Patient Online [...] if you dont have one. Go to [email or web address] and click on Create Your Account. Then, follow the directions to complete the online form. Youll be asked for your [facility] number which you can find at the top of this document. Your Goals/Additional instructions: Source: [facility] POWERCHART Document Id: [id number] [facility] Miscellaneous - Margarito Soto M.D. - 03/14/2015 3:31 PM CST Ambulatory Discharge Medication List [address] [id number] Visit Information Name: NARINDER LUCAS [facility] Number: [id number] Visit Date: 03/14/2015 15:31:42 Attending Provider: MARGARITO SOTO MD Primary Care Provider: PCP, SLADE ZAMORAULLE NARINDER [place] has been given the following list of [...] tablet) 1 Tablet(s), Oral, once a day Stop Taking the Following Medications: sertraline (Zoloft 50 mg oral tablet) Medication list as of 03-14-15 15:31 Attention: If you have any medications at home that are not on this list, DO NOT take them until youcontact your provider for clarification. Give a copy of your medication list to your primary care provider. Update your medication list any time medications or doses are changed and carry your medication list at all times in case of emergency. Electronically Signed By: MARGARITO SOTO MD Signed On:14-MAR-2015 15:31:37 Additional Information: Source: [facility] POWERCHART Document Id: [id number] [facility] Miscellaneous - Kirsten Wilhelm, L.P.N. 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 Entered On: 03/14/2015 15:05 [facility] Performed On: 03/14/2015 15:03 [facility]PRESS by KIRSTEN WILHELM LPN Intake Chief Complaint : Pelvic pain, secondary infertility Systolic Blood Pressure : 116 mmHg Diastolic Blood Pressure : 64 mmHg NIBP Mean : 81 mmHg BP Location : Left upper extremity Blood Pressure Cuff Size : Large Height : 172 cm(Converted to: 5 ft 8 inch(es), 68 inch(es)) Actual Weight : 125.1 kg(Converted to: 275 lb 13 oz) Weight Source : Standing scale Dosing Weight Clinic : 125.1 kg Clinic BSA : 2.44 Body Mass Index : 42.29 kg/m2 KIRSTEN WILHELM LPN - 03/14/2015 15:03 [facility]OO[facility] General Info Information Given By : Patient Languages : Wallisian Is Patient Female and 13-50 no hysterectomy : Yes Status : Patient denies Are you ? : No KIRSTEN WILHELM LPN - 03/14/2015 15:03 [facility] Subjective Pain Symptoms : No KIRSTEN WILHELM LPN - 03/14/2015 15:03 [facility]OO[facility]PRESS Dependent Habits Exposure to Tobacco Smoke : Other: never Smoking Status : Never smoker Tobacco 2A : No Tobacco Use/Currently Using : No Tobacco Use/Last 30 Days : No Tobacco Use/Last 12 months : No KIRSTEN WILHELM LPN - 03/14/2015 15:03 [facility]OO[facility]PRESS Caffeine Use Grid Caffeine Use : Current Type : Chocolate, Coffee, Soft drinks, Tea Frequency : Daily KIRSTEN WILHELM LPN - 03/14/2015 15:03 PROOFER [facility]PRESS Source: [facility] POWERCHART Document Id: [id number] PROOFER PREPRESS!34 FER PREPRESS documented in this encounter Plan of Treatment Upcoming Encounters Date Type Specialty Care Team Description 11/09/2021 Office Visit Family Medicine Fadia Merchant M.D. [address] [place] [phone] (Wo james) 11/10/2021 Office Visit Family Medicine Zacarias Sarabia M.B.B.S., M.D. [address] [place] [phone] (Wo james) 11/11/2021 Comprehensive Visit Orthopedic Surgery Ivan Deng M.D. [address] [place], [place] [phone] (Wo rk) documented as of this encounter Visit Diagnoses Not on filedocumented in this encounter Additional Health Concerns Assessment Noted Time PHQ-9 Depression Total Score: 11 09/11/2013 1:22 PM CD T documented as of this encounter
--- OUTSIDE RECORDS SUMMARY | 2021-11-07 19:45 | XMS_ITS | Encounter Summary ---
:1980 Author Organization [facility] Address [address] [place] [address] Care Team Providers Name Role Phone Unassigned, Pcp Primary Care Provider Unavailable Reason for Referral Outpatient (Routine) - Closed Specialty Diagnoses / Procedures Referred By Contact Refer red To Contact Nutrition Diagnoses Sleep Apnea Morbid Obesity Body Mass Index 50.0-59.9 Adult (HCC) Ignacia Michaud M.D., [facility] M.P.H. [address] [place] [phone] Referral ID Status Reason Start Date Expiration Date Visits Requ ested Visits Authorized [id number] Closed 11/04/2017 11/04/2018 1 1 Outpatient (Routine) - Closed Specialty Diagnoses / Procedures Referred By Contact Refer red To Contact Neurology Ignacia Michaud M.D ., M[facility]P.H. [facility] Region [address] [phone] Referral ID Status Reason Start Date Expiration Date Visits Requ ested Visits Authorized [id number] Closed 11/04/2017 11/04/2018 1 1 Outpatient (Routine) - Closed Specialty Diagnoses / Procedures Referred By Contact Refer red To Contact Diagnoses Sleep Apnea Ignacia Michaud M.D., [facility] Procedures Polysomnography (PSG): Split Night (STANDARD) M.P.H. [address] [place] [phone] Referral ID Status Reason Start Date Expiration Date Visits Requ ested Visits Authorized [id number] Closed 11/04/2017 11/04/2018 1 1 Reason for Visit Reason Comments Consult Ref. - sleep apnea . Sleep study done 09/11/15. Did not use CPAP so it had to be returned. Outpatient (Routine) - Closed Specialty Diagnoses / Procedures Referred By Contact Refer red To Contact Neurology Diagnoses Sleep Apnea Shreya Dean M.D. [facility] Region [address] [place] [address] Referral ID Status Reason Start Date Expiration Date Visits V isits Requested Authorized [id number] Closed Specialty 09/23/2017 09/23/2018 1 1 Services Required Encounter Details Date Type Department Care Team Description 11/04/2017 Comprehensive Visit Department of Ignacia Michaud Morbid Obesity Body Mass Index 50.0-59.9 Adult (HCC) (Primary Dx); Neurology in [place]japati, Sleep Apnea; [place], [place] M.P.H. Morbid Obesity Body Mass Index Greater T frias Or Equal To 40 Adult (HCC) [address] [facility] [address] [facility] [phone] [place], [place] [phone] Social History Tobacco Use Types Packs/Day Years Used Date Smoking Tobacco: Never Smokeless Tobacco: Never Sex Assigned at Date Recorded Not on file documented as of this encounter Last Filed Vital Signs Vital Sign Reading Time Taken Comments Blood Pressure 121/66 11/04/2017 1:23 PM CDT Pulse 81 11/04/2017 1:23 PM CDT Temperature - - Respiratory Rate - - Oxygen Saturation - - Inhaled Oxygen Concentration - - Weight 150 kg (331 lb 2.1 oz) 11/04/2017 1:23 PM CDT Height - - Body Mass Index 52.59 09/23/2017 4:43 PM CDT documented in this encounter Consult Notes Ignacia Michaud M.D., M.P.H. - 11/04/2017 12:45 PM CDT Sleep Clinic HISTORY OF PRESENT ILLNESS: This very pleasant 36-year-old woman has unfortunately gained a substantial amount of weight since [facility] at age 21. She has had a gradual weight gain and she is a 4-year-old child whois autistic. She says she feels depressed and she does not have any friends and she said sometimes food is her friend. She binge eats and she know she should and. And because she so heavy she can't shehas her child and she feels like he does not have any energy. He says now she has back pain and fatigue. Her tells her that she snores and stops breathing. She had a sleep study performed at [address] on 09/08/[address] Zacarias Ro. In that study she had an apnea-hypopnea index of 5 an apnea-hypopnea index of 6.8 while supine an apnea- hypopnea index of 30.6 while supineand in REM. Her respiratory distress index was 6. She had a CPAP machine but then stopped using it because she had trouble getting used to the mask that she believes was a full face mask. She is now int erested in trying to get a CPAP machine again. I explained to her that she will have to undergo another overnight polysomnogram. She is agreeable to that. She has no history of any parasomnias. She also believes she is going to have more success with a CPAP machine because her sleep is now more standardized. She goes to bed between 10:00 p.m. and midnight where she used to go to bed early in the morning and then get up and then take naps during the day.She takes melatonin about 2 hr before she goes to bed and she gets up at 6:30 a.m. so now she goes to bed between 10 PM and mid night. Perry Sleepiness Score: 5 Past Medical History: Diagnosis Date ??? Constipation Slow Transit ??? Depression Major Recurrent (HCC) ??? Incontinence Urinary Stress Female ??? Menstrual Irregularity ??? Morbid Obesity Body Mass Index 40.0-44.9 Adult (HCC) ??? Pain Low Back Chronic Past Surgical History: Procedure Laterality Date ??? SECTION N/A 07/30/2013 section MEDICATIONS: Current Outpatient Prescriptions: ??? CHOLECALCIFEROL 1,000 unit tablet, , Disp: , Rfl: ??? omega-3 fatty acids-fish oil 300-1,000 mg capsule, Take 2 g by mouth daily., Disp: , Rfl: ??? oxybutynin (DITROPAN-XL) 5 mg 24 hr tablet, 5 mg., Disp: , Rfl: ??? sertraline (ZOLOFT) 100 mg tablet, Take 1 tablet (100 mg total) by mouth daily., Disp: 90 tablet, Rfl: 0 ALLERGY: No Known Allergies Family History Problem Relation Age of Onset ??? Hypertension Father ??? TB - Pulmonary tuberculosis Mother ??? Hyperlipidemia Mother ??? No Known Problems Maternal Grandmother ??? No Known Problems Maternal Grandfather ??? No Known Problems Paternal Grandmother ??? No Known Problems Paternal Grandfather Social History Social History ??? Marital status: Spouse name: N/A ??? Number of children: N/A ??? Years of education: N/A Occupational History ??? Not on file. Social History Main Topics ??? Smoking status: Never Smoker ??? Smokeless tobacco: Never Used ??? Alcohol use Not on file ??? Drug use: Unknown ??? Sexual activity: Not on file Other Topics Concern ??? Not on file Social History Narrative ??? No narrative on file PHYSICAL EXAM: Vitals: 11/04/17 1323 BP: 121/66 Pulse: 81 HEENT: Mallampati score: 2 Macroglossia: + Over jet: - Retrognathia: - Lungs: CTA NEUROLOGICAL EXAM: MSE: Awake, alert, oriented x 3, language intact, attention and concentration normal CN: VFFC, EOMI, no nystagmus, V1-V3 intact, no facial weakness, normal hearing to communication, good elevation of soft palate, tongue midline with good strength, no dysarthria Motor: No pronator drift, rapid finger movements are symmetrical Normal tone and bulk Power: Right Left Deltoids 5/5 5/5 Biceps 5/5 5/5 Wrist Ext 5/5 5/5 Finger Ext 5/5 5/5 Hip Flexors / 5/5 Knee Extensors / 5/5 Ankle DF / 5/5 Ankle PF / 5/5 Coordination: intact finger to nose and heel to shannon Reflexes: B T Br K A Plantars R 2+ 2+ 2+ 2+ 2+ down L 2+ 2+ 2+ 2+ 2+ down Sensory: intact to light touch Gait: normal ASSESSMENT AND PLAN: Encounter Diagnoses Name Primary? Morbid Obesity Body Mass Index 50.0-59.9 Adult (HCC) Yes ??? Sleep Apnea ??? Morbid Obesity Body Mass Index Greater Than Or Equal To 40 Adult (HCC) The patient is interested in a dietary consult and I have placed this. She understands that gastric bypass surgery is also and play. She is disinclined to take that avenue at this point. I have ordered another polysomnogram, split night in order to determine appropriate therapy for thispatient. I am hopeful that we will be able to determine appropriate pressure support for her with a mask that she can tolerate. Think now that her sleep-wake cycle is regulated perhaps due to the orderand post on her for taking care of her child and perhaps melatonin she takes as before bedtime that she will be able to tolerate the CPAP. I have recommended that she take the melatonin no more than anhour before she goes to bed and tried do that at 9:00 p.m. and go to bed at 10:00 p.m.. She is goingto do that I have recommended that her melatonin does be between 3 and 5 mg. Total time with patient was 45 min 30 in counseling care coordination. documented in this encounter Plan of Treatment Upcoming Encounters Date Type Specialty Care Team Description 11/09/2021 Office Visit Family Medicine Fadai Merchant M.D. [address] [phone] (Wo rk) 11/10/2021 Office Visit Family Medicine Zacarias Sarabia M.B.B.S., M.D. [address] [phone] (Wo rk) 11/11/2021 Comprehensive Visit Orthopedic Surgery Ivan Deng M.D. 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 This included 6 channels of EEG, 2 chann els of EOG, chin EMG, bilateral anterior tibialis EMG, nasal/oral thermi ster, PTAF (nasal pressure transducer), chest and abdominal wall mo vements, EKG rhythm strip, and pulse oximetry. The study was scored based upon recomme nded [place] [employer] Medicine scoring guidelines in accordanc e with Medicare guidelines. ??All of the raw data was reviewed. ??The stud y started at 10:50 p.m. the night of 12/12/2017 and ended at 6:00 a.m. of the following morning. Please see technical data from same date for more d etails. SLEEP ARCHITECTURE The diagnostic portion of the study show ed a sleep efficiency of 83.1 %. ?? The total recording time was 145 minutes with a total sleep time of 120.5 minutes. ?? Initial sleep onset latency was 6.5 minutes with an initial sleep onset REM latency of 58 minutes. ? ?Wake after sleep onset was 5.5 minutes in total. Distribution of sleep stages was as follows: Stage N1 9.5 %, stage N2 58.1 %, Stage N3 22.4 ?? % and REM Sleep 10 %. ??Arousal index was 15.9. Sleep architecture revea led increase stage 2 sleep is decreased stage 1 and REM. RESPIRATORY PATTERN Grade 1-2 snoring was recorded. Apnea/hy popnea index was ??8.5, respiratory disturbance index was 15.4, average oxyg en saturation was 96.1 with minimal oxygen saturation of 85. ELECTROCARDIOGRAM Rhythm strip EKG showed normal sinus rhy thm. BODY MOVEMENTS Periodic limb movement index was 6 with periodic limb movement arousal index of 0.5. TITRATION CPAP therapy was initiated at 1:15 a.m. after criteria was met for initiation. Initial CPAP pressure was 5 cm water pressure with a medium Quattro fullface mask and heated humidit y. ??Patient was titrated up to 15 cm of water pressure. ?? CLINICAL INTERPRETATION Patient has mild sleep disordered breath ing. ??She did not sleep on her back but states she does not at home eit her. ??She is appropriately treated with pressure support described above. The patient? s body mass index is elevated, weight loss is recommended. she should avoid activities that require a h igh level of alertness like driving, if she feels drowsy. The patien t will follow up with Dr. Michaud to discuss results of sleep study. Ignacia Michaud M.D., M.P.[facility] ORDERABLES Performing Organization Address City/State/ZIP Code Phon e Number MMODAL MMODAL NA documented in this encounter Visit Diagnoses Diagnosis Morbid Obesity Body Mass Index 50.0-59.9 Adult (HCC) - Primary Sleep Apnea Morbid Obesity Body Mass Index Greater T frias Or Equal To 40 Adult (HCC) Sleep Apnea Pain Knee Left - Primary documented in this encounter Additional Health Concerns Assessment Noted Time PHQ-9 Depression Total Score: 7 09/25/2017 6:49 AM CDT documented as of this encounter Care Teams Crown Attacher Relationship Specialty Start Date End Date Unassigned, Pcp PCP - General Family Medicine 09/23/17 12/13/17 documented as of this encounter
--- OUTSIDE RECORDS SUMMARY | 2021-11-07 19:45 | XMS_ITS | Encounter Summary ---
:1980 Author Organization [facility] Address [address] [place] [address] Care Team Providers Name Role Phone Unavailable Primary Care Provider Unavailable Encounter Details Date Type Department Care Team Description 08/07/2013 Hospital Encounter HX [facility] Tony Landaverde M.D. [address] [place], [place] [phone] (Wo rk) Social History Tobacco Use Types Packs/Day Years Used Date Smoking Tobacco: Never Assessed Sex Assigned at Date Recorded Not on file documented as of this encounter Last Filed Vital Signs Vital Sign Reading Time Taken Comments Blood Pressure 134/82 08/07/2013 3:19 PM CDT Pulse 76 08/07/2013 3:19 PM CDT Temperature - - Respiratory Rate 16 08/07/2013 3:19 PM CDT Oxygen Saturation - - Inhaled Oxygen Concentration - - Weight 113 kg (248 lb 10.9 oz) 08/07/2013 3:19 PM CDT Height 172 cm (5' 7.72) 08/07/2013 3:19 PM CDT Body Mass Index 38.13 08/07/2013 3:19 PM CDT documented in this encounter Progress Notes Katy Landaverde M.D. - 08/07/2013 2:43 PM CDT OBGYN-JEFRY CHIEF COMPLAINT/REASON FOR VISIT Concerns about incisional infection. HISTORY OF PRESENT ILLNESS Narinder is a 32-year-old, para 1-0-0-1 female 8 days postop status post primary low transverse section who presents with concerns about incisional infection. Narinder reports that her mother and her Croatian relatives told her that if she gets breast milk on her incision it will get infected. She reports that she has had breast milk on her incision a couple of times and she is concerned that her incision might be getting infected because of that. She reports a small amount of yellow drainage from her incision as well as pain at her incision particularly with movement. She also continues to have swelling in her ankles. She reports decreased appetite but she is tolerating a regular diet and denies nausea or vomiting. She is voiding without difficulty, but she is having some issues with constipation. She is taking 2 stool softeners once per day. She has minimal vaginal bleeding. She denies any fevers or chills. MEDICATIONS See EMR. ALLERGIES See EMR. SYSTEMS REVIEW GENERAL: No fevers, chills, fatigue, unintentional weight loss or weight gain. HEENT: No changes in vision or hearing, no sore throat or nasal congestion. CARDIOVASCULAR: No chest pain, irregular heartbeat or racing heart. RESPIRATORY: No shortness of breath, cough or wheeze. GASTROINTESTINAL: Positive for abdominal pain with movement and positive for constipation. No nausea, vomiting, diarrhea. GENITOURINARY: No pain or burning with urination, no irregular vaginal bleeding, heavy periods, painful periods, abnormal vaginal discharge, leaking urine, leaking stool or gas. SKIN: No rashes or skin lesions. BREASTS: No masses or lumps, no discharge from the nipples. NEUROLOGIC: No difficulty with memory, numbness, tingling, falls. PSYCHIATRIC: No anxiety, depression, or difficulty sleeping. ENDOCRINE:No heat intolerance, cold intolerance, excessive thirst or hair loss. VITAL SIGNS See EMR. PHYSICAL EXAMINATION GENERAL: Well-nourished female, in no acute distress. HEAD: Normocephalic, atraumatic. EENT: Vision and hearing grossly intact. ABDOMEN: Soft, nondistended, mild incisional tenderness to palpation that is appropriate, fundus firm at umbilicus, the Pfannenstiel skin incision is clean, dry, and intact, without evidence of infection, there is no surrounding erythema or increased warmth. LOWER EXTREMITIES: Nontender, 2+ pitting edema bilateral lower extremities. IMPRESSION/REPORT/PLAN A 32-year-old para 1-0-0-1 female, postoperative day #8 status post primary low transverse section who presents with concerns about incisional infection. 1. progress: The patient is making appropriate progress. She is voiding, ambulating and tolerating a regular diet without difficulty. She is having some constipation. 2. Concerns about incisional infection: The patient was reassured that breast milk in contact with the incision will not cause an infection. There is no evidence of infection on examination today. 3. Postoperative progress: The patient does have somewhat decreased appetite and some incisional pain particularly with movement. She was counseled that these are normal and that she had a major surgery. If she has onset of nausea or vomiting or fevers or chills or worsening pain that is not controlled with medication she should let me know. 4. Constipation: The patient was encouraged to increase her senna S to 1 tablet in the morning and 2tablets in the evening. If she is still having issues with constipation she should increase it to 2 tabs twice a day. 5. Lower extremity edema: I will give the patient a prescription for Lasix 20 mg x1. She does have 2+ pitting edema bilaterally in her lower extremities. This should help decrease the edema. 6. Followup: One week. ADMINISTRATIVE BILLING Greater than 50% of this 30-minute visit was spent in counseling and reassuring the patient. Katy Landaverde M.D./scott Electronically Signed By: KATY LANDAVERDE MD On: 08/21/2013 02:08 PM Source: [facility] MHSDOLBEYNONRADSYS Document Id: [id number] documented in this encounter Miscellaneous Notes Miscellaneous - Katy Landaverde M.D. - 08/18/2013 6:40 PM CDT Ambulatory Patient Summary [address] [id number] Visit Information Name: NARINDER LUCAS [facility] Number: [id number] Visit Date: 08/18/2013 18:40:54 Attending Provider: KATY LANDAVERDE MD Primary Care Provider: PCP, UNASSIGNED - FB TRAVIS, NARINDER ALI has been given the following list of medications: Your Medications It is important to take your medications as directed. Use a pill box or chart to help remind you to take your medications. Please let your doctor or nurse know if you have problems taking your medications. Medication/Strength Dose Route Frequency Indications/Special Instructions/Comments/Notes furosemide (Lasix 20 mg oral tablet) 20 mg Oral once a day oxyCODONE (oxyCODONE) Oral *ibuprofen (ibuprofen 600 mg oral tablet) 600 mg Oral four times a day multivitamin (multivitamin) Oral once a day * You have let us know that you are not taking this medication as listed. Please talk with your primary care provider or the health care provider who prescribed the medication as soon as possible. Attention: If you have any medications at home that are not on this list, DO NOT take them until youcontact your provider for clarification. Give a copy of your medication list to your primary care provider. Update your medication list any time medications or doses are changed and carry your medication list at all times in case of emergency. Electronically Signed By: KATY LANDAVERDE MD Signed On:18-AUG-2013 18:40:50 Additional Information: Source: [facility] POWERCHART Document Id: [id number] Miscellaneous - Katy Landaverde M.D. - 08/18/2013 6:40 PM CDT Ambulatory Discharge Medication List [address] [id number] Visit Information Name: TRAVIS, NARINDERNIVIA [place] [facility] Number: [id number] Visit Date: 08/18/2013 18:40:54 Attending Provider: KATY LANDAVERDE MD Primary Care Provider: PCPJOSE ALFREDO NASIM ALI has been given the following list of medications: Your Medications It is important to take your medications as directed. Use a pill box or chart to help remind you to take your medications. Please let your doctor or nurse know if you have problems taking your medications. Medication/Strength Dose Route Frequency Indications/Special Instructions/Comments/Notes furosemide (Lasix 20 mg oral tablet) 20 mg Oral once a day oxyCODONE (oxyCODONE) Oral *ibuprofen (ibuprofen 600 mg oral tablet) 600 mg Oral four times a day multivitamin (multivitamin) Oral once a day * You have let us know that you are not taking this medication as listed. Please talk with your primary care provider or the health care provider who prescribed the medication as soon as possible. Attention: If you have any medications at home that are not on this list, DO NOT take them until youcontact your provider for clarification. Give a copy of your medication list to your primary care provider. Update your medication list any time medications or doses are changed and carry your medication list at all times in case of emergency. Electronically Signed By: KATY LANDAVERDE MD Signed On:18-AUG-2013 18:40:50 Additional Information: Source: [facility] POWERCHART Document Id: [id number] Miscellaneous - Francine Calvert L.P.N. 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 Estate Transaction Manager Intake/History Entered On: 08/07/2013 15:21 CDT Performed On: 08/07/2013 15:19 CDT by FRANCINE CALVERT Intake Chief Complaint : c/o painful incision, yellow drainage Temperature Core : 36.5 DegC(Converted to: 97.7 DegF) Peripheral Pulse Rate : 76 /min Respiratory Rate : 16 /min Heart Rhythm : Regular Systolic Blood Pressure : 134 mmHg Diastolic Blood Pressure : 82 mmHg NIBP Mean : 99 mmHg BP Location : Left upper extremity Blood Pressure Cuff Size : Regular Height : 172 cm(Converted to: 5 ft 8 inch(es), 68 inch(es)) Actual Weight : 112.8 kg(Converted to: 248 lb 11 oz) Weight Source : Standing scale Dosing Weight Clinic : 112.8 kg Clinic BSA : 2.32 Body Mass Index : 38.13 kg/m2 FRANCINE CALVERT - 08/07/2013 15:19 CDT General Info Languages : Moldovan FRANCINE CALVERT - 08/07/2013 15:19 CDT Subjective Pain Symptoms : No FRANCINE CALVERT - 08/07/2013 15:19 CDT Dependent Habits Tobacco Use/Currently Using : No Exposure to Tobacco Smoke : Other: never Smoking Status : Never smoker FRANCINE CALVERT - 08/07/2013 15:19 CDT Caffeine Use Grid Caffeine Use : Current Type : Chocolate, Coffee, Soft drinks, Tea Frequency : Daily FRANCINE CALVERT - 08/07/2013 15:19 CDT [facility] Document Id: [id number] CDT!31 documented in this encounter Plan of Treatment Upcoming Encounters Date Type Specialty Care Team Description 11/09/2021 Office Visit Family Medicine Fadia Merchant M.D. [address] [place] [phone] (Wo rk) 11/10/2021 Office Visit Family Medicine Zacarias Sarabia M.B.B.S., M.D. [address] [place] [phone] (Wo rk) 11/11/2021 Comprehensive Visit Orthopedic Surgery Ivan Deng M.D. [address] [phone] (Wo rk) documented as of this encounter Visit Diagnoses Not on filedocumented in this encounter Additional Health Concerns Assessment Noted Time PHQ-9 Depression Total Score: 7 04/12/2013 5:31 PM STEMMER MACHINE documented as of this encounter
--- OUTSIDE RECORDS SUMMARY | 2021-11-07 19:45 | XMS_ITS | Encounter Summary ---
:1980 Author Organization [facility] Address [address] [place] [address] Care Team Providers Name Role Phone Unavailable Primary Care Provider Unavailable Encounter Details Date Type Department Care Team Description 08/06/2016 Hospital Encounter HX [facility]Y Kristy Singh APRN, R.N. [address] [place] [address] (Wo rk) Social History Tobacco Use Types Packs/Day Years Used Date Smoking Tobacco: Never Sex Assigned at Date Recorded Not on file documented as of this encounter Last Filed Vital Signs Vital Sign Reading Time Taken Comments Blood Pressure 112/78 08/06/2016 9:30 AM CDT Pulse 88 08/06/2016 9:30 AM CDT Temperature - - Respiratory Rate - - Oxygen Saturation - - Inhaled Oxygen Concentration - - Weight - - Height 172 cm (5' 7.72) 08/06/2016 9:30 AM CDT Body Mass Index - - documented in this encounter Progress Notes Rajani Singh APRN, R.N. - 08/06/2016 7:45 PM CDT URO-LE CHIEF COMPLAINT/REASON FOR VISIT patient states incontinence got worse and feels pressure HISTORY OF PRESENT ILLNESS Narinder is a pleasant 35-year-old female here today for a recheck of her urinary issues. She has had some difficulty with pelvic pain, nocturnal enuresis, and urinary urgency and frequency. She had beenattending pelvic floor physical therapy and was doing quite well. Her incontinence had decreased as had her nocturnal enuresis. During the month of ada her urinary urgency and frequency increased. She reports pain, burning, and urgency of urination. She has had multiple episodes of incontinence during the day and at night. She also would like an order for protective undergarments to be sent to [facility]. MEDICATIONS Multivitamins oral tablet, 1 tab(s), PO, Daily, * * indicates non-compliance ALLERGIES NKA PAST MEDICAL HISTORY Chronic Acne Vulgaris Apnea Sleep Obstructive (CAMRYN) Body mass index (BMI) 45.0-49.9, adult Constipation NOS Disease Gastroesophageal Reflux (GERD DARLIN) Dysthymic Disorder (300.4) Incontinence Irregular menses Low back pain Obesity NOS Pain Pelvic Female Tb Latent Vitamin D deficiency, unspecified Historical Care Insufficient Enuresis Nocturnal Sleep Normal First 1st Preg Other Unspecified Back Disorders Urinary Frequency Urinary Urgency PROCEDURES/SURGICAL HISTORY section (07/30/2013). SOCIAL HISTORY Date Time: 08/06/2016 09:30 Tobacco: Smoking Status: Never smoker Exposure: Other: never Alcohol: Use: No Results Found Recreational Drugs: Use: No Results Found Type: No Results Found FAMILY HISTORY Father:Positive: Hypertension SYSTEMS REVIEW Negative except as stated above VITAL SIGNS T: 35.1 ??C (Core) HR: 88 BP: 112 / 78 HT: 172 cm PHYSICAL EXAMINATION General: Well developed, well nourished, well groomed female in no acute distress. Neurological: Alert, cooperative, oriented x3. Appropriate mood and affect. Head: Normal appearance, no abnormalities, normocephalic. Neck: Symmetrical and supple, trachea is midline. Cardiac: regular rate, regular rhythm Respiratory: Respirations are unlabored with normal respiratory rate and normal respiratory movements. Normal chest wall expansion without use of accessory muscles. Abdomen: Soft, non-tender, non-distended Extremities: Warm, without edema or ulcerations. LAB RESULTS UA Color Yellow.. 08/06/2016 09:40 CDT UA Clarity Clear... 08/06/2016 09:40 CDT UA Spec Grav 1.025 08/06/2016 09:40 CDT UA pH 5.5 08/06/2016 09:40 CDT UA Protein Negative 08/06/2016 09:40 CDT UA Glucose Negative 08/06/2016 09:40 CDT UA Ketones Negative 08/06/2016 09:40 CDT UA Bili Negative 08/06/2016 09:40 CDT UA Urobilinogen 0.2 08/06/2016 09:40 CDT UA Blood Negative 08/06/2016 09:40 CDT UA Nitrite Negative 08/06/2016 09:40 CDT UA Leuk Est Negative 08/06/2016 09:40 CDT UR WBC None Seen. 08/06/2016 09:40 CDT UR RBC None Seen. 08/06/2016 09:40 CDT UR Hyaline Cast 1-3 08/06/2016 09:40 CDT (Abnormal) UR Squamous Epi Cells Occ-3. 08/06/2016 09:40 CDT (Abnormal) UR Bacteria Present. 08/06/2016 09:40 CDT (Abnormal) DIAGNOSTIC RESULTS Urine culture is pending IMPRESSION/REPORT/PLAN Enuresis Nocturnal Sleep Frequency Urinary At this time, it is possible that she has a urinary tract infection. If her culture is positive, wewill treat with antibiotics. In the meantime, she is given a prescription for tolterodine 4 mg oral capsule, 1 capsule daily. She can take this for her urinary urgency and frequency. She is also given a prescription for 3 XL briefs. This is faxed to [facility] for her. If she has any difficultyobtaining these briefs, she will contact us so that we can assist her. She is also given a prescription for continued pelvic floor physical therapy. All of her questions have been answered today, she is in agreement with the plan that we have made. We will contact her with the results of her urine culture. Electronically Signed By: RAJANI SINGH APRN, RN On: 08/17/2016 07:49 PM Source: [facility] POWERCHART Document Id: [id number] documented in this encounter Miscellaneous Notes Miscellaneous - Adriana Chase L.PEliseoN. - 10/26/2016 1:14 PM CDT *General Message Document Contains Addenda Addendum by RAJANI SINGH APRN, RN on October 27, 2016 17:32:42 CDT Noted. Addendum by ADRIANA CHASE LPN on October 27, 2016 09:48:06 CDT From: ADRIANA CHASE LPN ( Urology Nurse) To: RAJANI SINGH APRN, RN; Sent: 10/27/2016 09:48:06 CDT Subject: FW: *General Message Addendum by ADRIANA CHASE LPN on October 27, 2016 09:47:02 CDT Patient will drop off her urine sample tomorrow. Patient stated that she would like to continue with physical therapy. Patient was informed we will call when results are completed. Addendum by SUHA COSME LPN on October 26, 2016 13:36:42 CDT Left message to call back. Orders placed for lab at [facility] lab. Addendum by RAJANI SINGH APRN, RN on October 26, 2016 13:27:22 CDT From: RAJANI SINGH APRN, RN To: Urology Nurse; Sent: 10/26/2016 13:27:22 CDT Subject: RE: *General Message The last time she had leaking it was a UTI, so please get a UA/UC. From: ADRIANA CHASE LPN ( Urology Nurse) To: RAJANI SINGH APRN, RN; Sent: 10/26/2016 13:14:37 CDT Subject: *General Message Marsha Merissa from physical therapy left a message on our voicemail stating that patient was doingtherapy then entered [place] and took a break, she also had surgery, she is wondering if the patientshould still be continuing therapy. Patient is leaking and she thinks that a UA/UC is needed. Pleaseadvise. Source: [facility] POWERCHART Document Id: [id number] Miscellaneous - Rajani Singh APRN, R.N. - 08/06/2016 10:05 AM CDT Ambulatory Patient Summary [facility] [address] [place], [place] [id number] Visit Information Name: NARINDER LUCAS [facility] Number: [id number] Current Date: 08/06/2016 10:05:58 Physicians Attending Provider: RAJANI SINGH APRN, alumina plant supervisor Provider: PCP, SLADE NARINDER LUCAS has been [...] Take Indications/Special Instructions/Comments/Notes for Patient Medication Changes/Routing Misc Prescription (3XL brief) See Instructions N39.44. change brief 4 times daily. #120 New Routed to Printer *multivitamin, ( Multivitamins oral tablet) 1 Tablet(s), Oral, once a day tolterodine (tolterodine 4 mg oral capsule, extended release) 1 cap, Oral, once a day Routed to [address] [phone] * You have let us know that you are not taking this medication as listed. Please talk with your primary care provider or the health care provider who prescribed the medication as soon as possible. 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 Apnea Sleep Obstructive (CAMRYN) Active Your Upcoming Appointments Date Time Location Provider 08/16/2016 14:15 [facility] Rajani Snigh CNP Attention: Contact your local Clinic if further [...] if you dont have one. Go to [email or web address] and click on Create Your Account. Then, follow the directions to complete the online form. Youll be asked for your [facility] number which you can find at the top of this document. Your Goals/Additional instructions: Source: [facility] POWERCHART Document Id: [id number] Miscellaneous - Rajani Singh APRN, R.N. - 08/06/2016 10:05 AM CDT Ambulatory Discharge Medication List [facility] [address] [place] [id number] Visit Information Name: NARINDER LUCAS [facility] Number: [id number] Current Date: 08/06/2016 10:05:57 Attending Provider: RAJANI SINGH APRN, alumina plant supervisor Provider: PCP, ELSEWHERE NARINDER LUCAS has been given the following list of medications: Your Medications It is important to take your medications as directed. Use a pill box or chart to help remind you to take your medications. Please let your doctor or nurse know if you have problems taking your medications. Medication/Strength How to Take Indications/Special Instructions/Comments/Notes for Patient Medication Changes/Routing [facility] Prescription (3XL brief) See Instructions N39.44. change brief 4 times daily. #120 New Routed to Printer *multivitamin, ( Multivitamins oral tablet) 1 Tablet(s), Oral, once a day tolterodine (tolterodine 4 mg oral capsule, extended release) 1 cap, Oral, once a day Routed to [place] [address] [place], [place] [phone] * You have let us know that you are not taking this medication as listed. Please talk with your primary care provider or the health care provider who prescribed the medication as soon as possible. Stop Taking the Following Medications: Medication list as of 08-06-16 10:05 Attention: If you have any medications at [...] Signed By: RAJANI SINGH APRN, RN Signed On:06-AUG-2016 10:05:26 Additional Information: Source: [facility] POWERCHART Document Id: [id number] Miscellaneous - Adrinaa Chase, L.P.N. - 08/06/2016 9:30 AM CDT Adult Records Clerk Intake/History Adult Records Clerk Intake/History Entered On: 08/06/2016 9:35 CDT Performed On: 08/06/2016 9:30 CDT by ADRIANA CHASE LPN Intake Chief Complaint : patient states incontinence got worse and feels pressure Temperature Core : 35.1 DegC(Converted to: 95.2 DegF) (LOW) Peripheral Pulse Rate : 88 /min Systolic Blood Pressure : 112 mmHg Diastolic Blood Pressure : 78 mmHg NIBP Mean : 89 mmHg BP Location : Left upper extremity Blood Pressure Cuff Size : Large Height : 172 cm(Converted to: 5 ft 8 inch(es), 68 inch(es)) ADRIANA CHASE [facility] 08/06/2016 9:30 CDT General Info Information Given By : Patient Preferred Communication Mode : Verbal Languages : Frisian Is Patient Female and 13-50 no hysterectomy : Yes Status : Patient denies Are you ? : No ADRIANA CHASE [facility] 08/06/2016 9:30 CDT Subjective Pain Symptoms : Yes ADRIANA CHASE [facility] 08/06/2016 9:30 CDT Pain Scale Pain Scale Verbal 0-10 : Open ADRIANA CHSAE [facility] 08/06/2016 9:30 CDT Pain Pain Assessment Grid Pain 1 Location : Abdomen Laterality : Other: lower Intensity : 7 ADRIANA CHASE [facility] 08/06/2016 9:30 CDT Dependent Habits Exposure to Tobacco Smoke : Other: never Smoking Status : Never smoker Tobacco 2A : No Tobacco Use/Currently Using : No Tobacco Use/Last 30 Days : No Tobacco Use/Last 12 months : No ADRIANA CHASE [facility] 08/06/2016 9:30 CDT Caffeine Use Grid Caffeine Use : Current Type : Coffee Frequency : Occasionally Amount : occ. 1-2x/week 1 c. coffee ADRIANA CHASE [facility] 08/06/2016 9:30 CDT Source: [facility] GoodyTag Document Id: [id number]!41 documented in this encounter Plan of Treatment Upcoming Encounters Date Type Specialty Care Team Description 11/09/2021 Office Visit Family Medicine Fadia Merchant M.D. [address] [place] [address] (Andrew ramirez) 11/10/2021 Office Visit Family Medicine Zacarias Sarabia M.B.B.S., M.D. [address] [place] [address] (Andrew ramirez) 11/11/2021 Comprehensive Visit Orthopedic Surgery Ivan Deng M.D. [address] [place] [phone] (Andrew rk) documented as of this encounter Procedures Procedure Name Priority Date/Time Associated Comments Diagnosis URINALYSIS WITH Routine 08/06/2016 9:40 AM Result s for this MICROSCOPIC CDT procedure are i n the results section. BACTERIAL CULTURE, Routine 08/06/2016 9:40 AM Res ults for this AEROBIC, URINE CDT procedure are in the results section. documented in this encounter Results (ABNORMAL) Urinalysis, Complete, Includes Microscopic (08/06/2016 9:40 AM CDT) [facility] Method Time Signature HXUR WBC. None Seen None Seen POWERCHART HPF HXUR RBC. None Seen None Seen POWERCHART HPF Casts, Hyaline 1-3 (A) None Seen POWERCHART LPF Squamous Occ-3 (A) None Seen POWERCHART Epithelial HPF HXUR Bacteria, Present (A) None Seen POWERCHART HXUr Color Yellow Yellow POWERCHART Clarity Clear Clear POWERCHART Glucose Negative Negative POWERCHART HXBILIRUBIN Negative Negative POWERCHART Ketones, QL(U) Negative Negative POWERCHART Specific 1.025 1.001 - POWERCHART [place], POCT, 1.035 U Comment: Reference Range Specific [place]: 1.000-1.035 pH, POCT, Urine 5.5 POWERCHART Comment: UA pH Reference Range pH: 5.0-8.0 Protein, Ur, Dip Negative Negative POWERCHART Urobilinogen 0.2 0.2 MGDL POWERCHART Comment: Reference Range Urobilinogen: 0.2-1.0 mg/dL HXNITRITE Negative Negative POWERCHART HXBLOOD Negative Negative POWERCHART Leukocyte Esterase Negative Negative POWERCHART Specimen (Source) Anatomical Collection Method Collection Time Re ceived Time Location / / Volume Laterality Urine, First 08/06/2016 9:40 AM Voided CDT Rajani Singh APRN, R.N. LAB URINE ORDERABLES Performing Organization Address City/State/ZIP Code Phon e Number POWERCHART (ABNORMAL) Bacterial Culture, Aerobic, Urine (08/06/2016 9:40 AM CDT) Analysis Performed At Patho logist Time Signature Bacterial EC >=32 POWERCHART Culture, (POSITIVE) Aerobic, Urine HXPre EC POWERCHART Comment: 50,000 - 100,000 cfu/mL Escheri babak coli HXFinal EC POWERCHART Comment: 50,000 - 100,000 cfu/mL Escherichia coli Including Mixed brigitte (multiple species present) Specimen (Source) Anatomical Collection Method Collection Time Re ceived Time Location / / Volume Laterality Urine, First 08/06/2016 9:40 AM Voided CDT Organism Antibiotic Method Susceptibility Escherichia coli Ampicillin SUSCEPTIBILITY, AQUILES >=32: Resis tant (MCG/ML) Escherichia coli Ampicillin + Sulbactam SUSCEPTIBILITY, AQUILES >=32 : Resistant (MCG/ML) Escherichia coli Aztreonam SUSCEPTIBILITY, AQUILES <=1: Suscep tible (MCG/ML) Escherichia coli Cefazolin SUSCEPTIBILITY, AQUILES <=4: Suscep tible (MCG/ML) Escherichia coli Cefepime SUSCEPTIBILITY, AQUILES <=1: Suscep tible (MCG/ML) Escherichia coli Ceftazidime SUSCEPTIBILITY, AQUILES <=1: Suscep tible (MCG/ML) Escherichia coli Ceftriaxone SUSCEPTIBILITY, AQUILES <=1: Suscep tible (MCG/ML) Escherichia coli ESBL Confirmation Test SUSCEPTIBILITY, AQUILES Neg: Negative (MCG/ML) Escherichia coli Ertapenem SUSCEPTIBILITY, AQUILES <=0.5: Susc eptible (MCG/ML) Escherichia coli Gentamicin SUSCEPTIBILITY, AQUILES <=1: Suscep tible (MCG/ML) Escherichia coli Levofloxacin SUSCEPTIBILITY, AQUILES >=8: Resist ant (MCG/ML) Escherichia coli Meropenem SUSCEPTIBILITY, AQUILES <=0.25: Arelis ceptible (MCG/ML) Escherichia coli Nitrofurantoin SUSCEPTIBILITY, AQUILES <=16: Susce ptible (MCG/ML) Escherichia coli Piperacillin + Tazobactam SUSCEPTIBILITY, AQUILES 8 : Susceptible (MCG/ML) Escherichia coli Trimethoprim + SUSCEPTIBILITY, AQUILES <=20: Susce ptible Sulfamethoxazole (MCG/ML) Escherichia coli Tobramycin SUSCEPTIBILITY, AQUILES >=16: Resis tant (MCG/ML) Rajani Singh APRN RNeha LAB MICROBIOLOGY - GENERA L ORDERABLES Performing Organization Address City/State/ZIP Code Phon e Number POWERCHART documented in this encounter Visit Diagnoses Not on filedocumented in this encounter Additional Health Concerns Assessment Noted Time PHQ-9 Depression Total Score: 3 11/10/2015 2:04 PM CDT documented as of this encounter
--- OUTSIDE RECORDS SUMMARY | 2021-11-07 19:45 | XMS_ITS | Encounter Summary ---
:1980 Author Organization [facility] Address [address] [place] [address] Care Team Providers Name Role Phone Unavailable Primary Care Provider Unavailable Encounter Details Date Type Department Care Team Description 07/11/2015 Hospital Encounter HX [facility] Kristi Landaverde M.D. [address] [place], [place] [phone] (Wo rk) Social History [...] - - Height 172 cm (5' 7.72) 07/11/2015 2:08 PM CDT Body Mass Index - - documented in this encounter Miscellaneous Notes Miscellaneous - Kristi Landaverde M.D. - 07/14/2015 9:36 AM CDT Results Notification Document Contains Addenda Addendum by FRANCINE CARTY LPN on July 21, 2015 14:45:58 CDT Patient notified. Addendum by FRANCINE CARTY LPN on July 17, 2015 15:09:38 CDT Left message for patient to return call. Addendum by FRANCINE CARTY LPN on July 15, 2015 09:44:31 CDT Left message for patient to return call. From: KRISTI LANDAVERDE MD To: FRANCINE CARTY LPN; Sent: 07/14/2015 09:36:17 CDT ! Show up: 07/14/2015 09:36:17 CDT Subject: Results Notification Actions: Note to Nurse Reminder Comments: Please let patient know that her progesterone level is not ovulatory. I would like her to return in 1 week to recheck her progesterone level. The lab test is ordered. Results: Date Result Name Value 07/11/2015 14:20 Progesterone Lvl 0.64 ng/mL Source: [facility] POWERCHART Document Id: [id number] Electronically signed by Conversion, [facility] Prop Sawyer [id number] at 07/03/2016 9:27 PM CDT documented in this encounter Plan of Treatment Upcoming Encounters Date Type Specialty Care Team Description 11/09/2021 Office Visit Family Medicine Fadia Merchant M.D. [address] [place] [phone] (Wo rk) 11/10/2021 Office Visit Family Medicine Zacarias Sarabia M.B.B.S., M.D. [address] [place] [phone] (Wo rk) 11/11/2021 Comprehensive Visit Orthopedic Surgery Ivan Deng M.D. [address] [phone] (Wo rk) documented as of this encounter Procedures Procedure Name Priority Date/Time Associated Diagnosis Comme nts PROGESTERONE, S Routine 07/11/2015 2:20 PM Result s for this CDT procedure are i n the results section. documented in this encounter Results Progesterone Level (07/11/2015 2:20 PM CDT) P athologist Signature Progesterone, S 0.64 NGML POWERCHART Specimen (Source) Anatomical Collection Method Collection Time Re ceived Time Location / / Volume Laterality Blood 07/11/2015 2:20 PM CDT Kristi Landaverde M.D. LAB BLOOD ADD-ON Performing Organization Address City/State/ZIP Code Phon e Number POWERCHART documented in this encounter Visit Diagnoses Not on filedocumented in this encounter Additional Health Concerns Assessment Noted Time PHQ-9 Depression Total Score: 11 09/11/2013 1:22 PM CD T documented as of this encounter
--- OUTSIDE RECORDS SUMMARY | 2021-11-07 19:45 | XMS_ITS | Encounter Summary ---
:1980 Author Organization [facility] Address [address] [place] [address] Care Team Providers Name Role Phone Unassigned, Pcp Primary Care Provider Unavailable Reason for Visit Reason Onset Date Comments labs and questions on med 10/05/2017 Encounter Details Date Type Department Care Team Description 10/05/2017 Clinical Communication Department of Shreya Dean lab s and questions Family MedicineNikos M.D. on [facility], in [address] [place] [address] e [place], [place] [address] [address] [place], [place] [phone] (Work) [phone] Social History Tobacco Use Types Packs/Day Years Used Date Smoking Tobacco: Never Smokeless Tobacco: Never Sex Assigned at Date Recorded Not on file documented as of this encounter Miscellaneous Notes Telephone Encounter - Leticia Gorman LEliseoP.N. - 10/05/2017 5:23 PM CDT Call returned. Notified that result letter was sent. All other questions answered. Telephone Encounter - Leticia Weaver - 10/05/2017 4:50 PM CDT Pt called and would like to discuss lab results and is confused about her anti- depressant meds she was told to take 2 tablets daily but she should take 2 tablets at the same time or should take 1 tab in the am and 1 tab in the pm. Please call pt and advise documented in this encounter Plan of Treatment Upcoming Encounters Date Type Specialty Care Team Description 11/09/2021 Office Visit Family Medicine Fadia Merchant M.D. [address] [place] [phone] (Wo rk) 11/10/2021 Office Visit Family Medicine Zacarias Sarabia M.B.B.S., M.D. [address] [place] [phone] (Wo rk) 11/11/2021 Comprehensive Visit Orthopedic Surgery Ivan Deng M.D. [address] [place], [place] [phone] (Wo rk) documented as of this encounter Visit Diagnoses Not on filedocumented in this encounter Additional Health Concerns Assessment Noted Time PHQ-9 Depression Total Score: 7 09/25/2017 6:49 AM CDT documented as of this encounter Care Teams Lighting Engineering Technician Relationship Specialty Start Date End Date Unassigned, Pcp PCP - General Family Medicine 09/23/17 12/13/17 documented as of this encounter
--- OUTSIDE RECORDS SUMMARY | 2021-11-07 19:45 | XMS_ITS | Encounter Summary ---
:1980 Author Organization [facility] Address [address] [place] [address] Care Team Providers Name Role Phone Shreya Dean M.D. Primary Care Provider Encounter Details Date Type Department Care Team Description 12/19/2017 Clinical Communication Department of Kimberly N[facility]ez, [facility], in [address] [phone] (Work) [phone] Social History Tobacco Use Types Packs/Day Years Used Date Smoking Tobacco: Never Smokeless Tobacco: Never Sex Assigned at Date Recorded Not on file documented as of this encounter Miscellaneous Notes Telephone Encounter - Kasise Galarza L.PEliseoN. - 12/23/2017 9:21 AM ROTARY DRILL OPERATOR Patient returned call. Unable to make appt. This morning. Will keep on waiting list. Patient requested that a detailed message can be left on her phone. RY DRILL OPERATOR Telephone Encounter - Kassie Galarza L.P.N. - 12/23/2017 9:06 AM ROTARY DRILL OPERATOR Attempted to contact patient. Message left to return my call. Had cancellation this morning. Arrivaltime would be 9:45 a.m. RY DRILL OPERATOR Telephone Encounter - Kassie Galarza L.P.N. - 12/22/2017 8:09 AM ROTARY DRILL OPERATOR Attempted to contact patient.Message left to return my call. RY DRILL OPERATOR Telephone Encounter - Kassie Galarza L.P.N. - 12/20/2017 10:58 AM ROTARY DRILL OPERATOR Attempted to contact patient. Message left to return my call. RY DRILL OPERATOR Telephone Encounter - Chantale Will - 12/19/2017 12:59 PM CST Patient has follow up sleep study 02/16/2018. Wondering if can get prescription for cpap machine before that. Please call. RY DRILL OPERATOR documented in this encounter Plan of Treatment Upcoming Encounters Date Type Specialty Care Team Description 11/09/2021 Office Visit Family Medicine Fadia Merchant M.D. [address] [place] [phone] (Andrew ramirez) 11/10/2021 Office Visit Family Medicine Zacarias Sarabia M.B.B.S., M.D. [address] [place] [phone] (Andrew ramirez) 11/11/2021 Comprehensive Visit Orthopedic Surgery Ivan Deng M.D. [address] [place] [phone] (Andrew ramirez) documented as of this encounter Visit Diagnoses Not on filedocumented in this encounter Additional Health Concerns Assessment Noted Time PHQ-9 Depression Total Score: 7 09/25/2017 6:49 AM CDT documented as of this encounter Care Teams Supervisor Electric Relationship Specialty Start Date End Date Shreya Dean M.D. PCP - General Family Medicine 12/14/17 01/07/19 documented as of this encounter
--- OUTSIDE RECORDS SUMMARY | 2021-11-07 19:45 | XMS_ITS | Encounter Summary ---
:1980 Author Organization [facility] Address [address] [place] [address] Care Team Providers Name Role Phone Unavailable Primary Care Provider Unavailable Encounter Details Date Type Department Care Team Description 08/02/2013 Hospital Encounter HX NO MAPPING Babak Soto M.D. Social History Tobacco Use Types Packs/Day Years Used Date Smoking Tobacco: Never Assessed Sex Assigned at Date Recorded Not on file documented as of this encounter Plan of Treatment Upcoming Encounters Date Type Specialty Care Team Description 11/09/2021 Office Visit Family Medicine Fadia Merchant M.D. [address] [place] [address] (Wo rk) 11/10/2021 Office Visit Family Medicine Zacarias Sarabia M.B.B.S., M.D. [address] [place] [address] (Wo rk) 11/11/2021 Comprehensive Visit Orthopedic Surgery Ivan Deng M.D. 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
--- OUTSIDE RECORDS SUMMARY | 2021-11-07 19:45 | XMS_ITS | Encounter Summary ---
:1980 Author Organization [facility] Address [address] [place] [address] Care Team Providers Name Role Phone Unavailable Primary Care Provider Unavailable Encounter Details Date Type Department Care Team Description 09/10/2016 Hospital Encounter HX [facility] Yash Gandhi M.D. [address] [place] [address] (Wo rk) Social History Tobacco Use Types Packs/Day Years Used Date Smoking Tobacco: Never Sex Assigned at Date Recorded Not on file documented as of this encounter Plan of Treatment Upcoming Encounters Date Type Specialty Care Team Description 11/09/2021 Office Visit Family Medicine Fadia Merchant M.D. [address] [place] [address] (Wo rk) 11/10/2021 Office Visit Family Medicine Zacarias Sarabia M.B.B.S., M.D. [address] [place] [address] (Wo rk) 11/11/2021 Comprehensive Visit Orthopedic Surgery Ivan Deng M.D. [address] [place], [place] [phone] (Wo rk) documented as of this encounter Visit Diagnoses Not on filedocumented in this encounter Additional Health Concerns Assessment Noted Time PHQ-9 Depression Total Score: 3 11/10/2015 2:04 PM CDT documented as of this encounter
--- OUTSIDE RECORDS SUMMARY | 2021-11-07 19:45 | XMS_ITS | Encounter Summary ---
:1980 Author Organization [facility] Address [address] [place] [address] Care Team Providers Name Role Phone Unassigned, Pcp Primary Care Provider Unavailable Encounter Details Date Type Department Care Team Description 11/14/2017 Clinical Communication Department of Sleep Unassigned, Pcp Medicine in [place], [place] [address] [place] [address] Social History Tobacco Use Types Packs/Day Years Used Date Smoking Tobacco: Never Smokeless Tobacco: Never Sex Assigned at Date Recorded Not on file documented as of this encounter Miscellaneous Notes Telephone Encounter - Lubna Chauhan - 11/15/2017 9:18 AM CDT Called patient 11/15 and left message to call back Telephone Encounter - Mary Duong - 11/14/2017 4:46 PM CDT Patient calling to schedule sleep study documented in this encounter Plan of Treatment Upcoming Encounters Date Type Specialty Care Team Description 11/09/2021 Office Visit Family Medicine Fadia Merchant M.D. [address] [place] [address] (Andrew ramirez) 11/10/2021 Office Visit Family Medicine Zacarias Sarabia M.B.B.S., M.D. [address] [place] [address] (Wo rk) 11/11/2021 Comprehensive Visit Orthopedic Surgery Ivan Deng M.D. [address] [place] [phone] (Wo rk) documented as of this encounter Visit Diagnoses Not on filedocumented in this encounter Additional Health Concerns Assessment Noted Time PHQ-9 Depression Total Score: 7 09/25/2017 6:49 AM CDT documented as of this encounter Care Teams Round Kiln Drawer Relationship Specialty Start Date End Date Unassigned, Pcp PCP - General Family Medicine 09/23/17 12/13/17 documented as of this encounter
--- OUTSIDE RECORDS SUMMARY | 2021-11-07 19:45 | XMS_ITS | Encounter Summary ---
:1980 Author Organization [facility] Address [address] [place] [address] Care Team Providers Name Role Phone Unavailable Primary Care Provider Unavailable Encounter Details Date Type Department Care Team Description 08/14/2013 Hospital Encounter HX [facility] OBTony Carrillo M.D. [address] [place], [place] [phone] (Wo rk) Social History Tobacco Use Types Packs/Day Years Used Date Smoking Tobacco: Never Assessed Sex Assigned at Date Recorded Not on file documented as of this encounter Last Filed Vital Signs Vital Sign Reading Time Taken Comments Blood Pressure 110/80 08/14/2013 4:36 PM CDT Pulse 78 08/14/2013 4:36 PM CDT Temperature - - Respiratory Rate - - Oxygen Saturation - - Inhaled Oxygen Concentration - - Weight 106 kg (233 lb 7.5 oz) 08/14/2013 4:36 PM CDT Height 172 cm (5' 7.72) 08/14/2013 4:24 PM CDT Body Mass Index 35.8 08/14/2013 4:24 PM CDT documented in this encounter Progress Notes Krisit Landaverde M.D. - 08/14/2013 4:23 PM CDT OBGYN-JEFRY CHIEF COMPLAINT/REASON FOR VISIT Incision check. HISTORY OF PRESENT ILLNESS Narinder is a 32-year-old, para 1-0-0-1 female who is 15 days postop status post primary low transversecesarean section who presents for an incision check today. I saw Narinder 1 week ago, and she had concerns at that time about incisional infection due to contact with the breast milk. She has had no further concerns about this. She does report some anxiety and depression symptoms due to lack of sleep, since she cares for her on her own. She reports not knowing what is normal with her baby. She worries a lot. She denies any suicidal or homicidal ideation. She is able to care for herself and the baby. She also describes a cough in which she has some episodes of coughing about 2 to 3 times per day. She has noticed this since coming home from the hospital. She also continues to have incisional pain with movement but it is improving. Otherwise she is voiding, ambulating and tolerating a regular diet without difficulty and her constipation has improved. MEDICATIONS See EMR. ALLERGIES See EMR. SYSTEMS REVIEW GENERAL: No fevers, chills, fatigue, unintentional weight loss or weight gain. HEENT: No changes in vision or hearing, no sore throat or nasal congestion. CARDIOVASCULAR: No chest pain, irregular heartbeat or racing heart. RESPIRATORY: No shortness of breath, cough or wheeze. GASTROINTESTINAL: No nausea, vomiting, diarrhea, constipation or abdominal pain. GENITOURINARY: No pain or burning with urination, no irregular vaginal bleeding, heavy periods, painful periods, abnormal vaginal discharge, leaking urine, leaking stool or gas. SKIN: No rashes or skin lesions. BREASTS: No masses or lumps, no discharge from the nipples. NEUROLOGIC: No difficulty with memory, numbness, tingling, falls. PSYCHIATRIC: Positive for anxiety, depression, and difficulty sleeping. ENDOCRINE: No heat intolerance, cold intolerance, excessive thirst or hair loss. VITAL SIGNS See EMR. PHYSICAL EXAMINATION GENERAL: Well-nourished female, in no acute distress. ABDOMEN: Soft, nondistended, nontender, normoactive bowel sounds, Pfannenstiel skin incision is clean, dry, and intact and without evidence of increased warmth or erythema. There is no evidence of drainage. EXTREMITIES: Lower extremities nontender, 1+ edema bilateral lower extremities. IMPRESSION/REPORT/PLAN A 32-year-old para 1-0-0-1 female who is 2 weeks 1 day postop status post primary low transverse section who presents for an incision check today. 1. Postoperative progress: The patient is making excellent postoperative progress. Her constipation has improved. 2. Cough. I have advised the patient to continue monitoring this and if it does not continue to improve she should let me know. 3. Anxiety and depression symptoms: The patient explains that she has concerns about what is normal with her baby. She has been in contact with the Public Health nurse who is somewhat helpful. She reports that she is able to care for herself and her baby and that her mood is not interfering with this.She does overall seem to have a lack of support. She was encouraged to attend [facility] and given the time and location since this should help her with baby care issues. She was also encouraged to utilize the resource of the Public Health nurse. If she feels that her mood symptoms are worsening or hasany suicidal or homicidal ideation she was informed that she needs to contact me immediately. 4. Constipation: Improved. 5. Followup: Four weeks for visit. ADMINISTRATIVE BILLING Greater than 50% of this 30-minute visit was spent in counseling the patient. Kristi Landaverde M.D./scott Electronically Signed By: KRISTI LANDAVERDE MD On: 08/21/2013 02:08 PM Source: [facility] MHSDOLBEYNONRADSYS Document Id: [id number] documented in this encounter Miscellaneous Notes Miscellaneous - Kristi Landaverde M.D. - 08/18/2013 6:48 PM CDT Ambulatory Discharge Medication List [address] [id number] Visit Information Name: TRAVISNARINDER [facility] Number: [id number] Visit Date: 08/18/2013 18:48:14 Attending Provider: KRISTI LANDAVERDE MD Primary Care Provider: PCP, UNASSIGNED - NARINDER LUCAS has been given the following [...] in case of emergency. Electronically Signed By: KRISTI LANDAVERDE MD Signed On:18-AUG-2013 18:48:13 Additional Information: Source: [facility] POWERCHART Document Id: [id number] Miscellaneous - Kristi Landaverde M.D. - 08/18/2013 6:48 PM CDT Ambulatory Patient Summary [facility] [address] [place] [id number] Visit Information Name: NARINDER LUCAS [facility] Number: [id number] Visit Date: 08/18/2013 18:48:15 Attending Provider: KRISTI LANDAVERDE MD Primary Care Provider: PCP, UNASSIGNED - FB NARINDER LUCAS has been given the following [...] in case of emergency. Electronically Signed By: KRISTI LANDAVERDE MD Signed On:18-AUG-2013 18:48:13 Additional Information: Source: [facility] POWERCHART Document Id: [id number] Miscellaneous - Salma Orta L.P.N. 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 Intake/History Entered On: 08/14/2013 16:41 CDT Performed On: 08/14/2013 16:36 CDT by SALMA ORTA LPN Intake Chief Complaint : incision check, post op c/s 07/30 Temperature Core : 36.9 DegC(Converted to: 98.4 DegF) Peripheral Pulse Rate : 78 /min Systolic Blood Pressure : 110 mmHg Diastolic Blood Pressure : 80 mmHg NIBP Mean : 90 mmHg BP Location : Right upper extremity Blood Pressure Cuff Size : Large Actual Weight : 105.9 kg(Converted to: 233 lb 8 oz) Weight Source : Standing scale Dosing Weight Clinic : 105.9 kg SALMA ORTA LPN - 08/14/2013 16:36 CDT General Info Information Given By : Patient Preferred Communication Mode : Verbal Languages : British SALMA ORTA LPN - 08/14/2013 16:36 CDT Subjective Pain Symptoms : Yes SALMA ORTA LPN - 08/14/2013 16:36 CDT Pain Pain Assessment Grid Pain 1 Location : Abdomen (Comment: incision site and right side [SALMA ORTA LPN - 08/14/2013 16:36 CDT] ) SALMA ORTA LPN - 08/14/2013 16:36 CDT Dependent Habits Tobacco Use/Currently Using : No Exposure to Tobacco Smoke : Other: never Smoking Status : Never smoker SALMA ORTA LPN - 08/14/2013 16:36 CDT Caffeine Use Grid Caffeine Use : Current Type : Chocolate, Coffee, Soft drinks, Tea Frequency : Daily SALMA ORTA LPN - 08/14/2013 16:36 CDT [facility] Document Id: [id number] CDT!32 documented in this encounter Plan of Treatment Upcoming Encounters Date Type Specialty Care Team Description 11/09/2021 Office Visit Family Medicine Fadia Merchant M.D. [address] [place] [address] (Wo rk) 11/10/2021 Office Visit Family Medicine Zacarias Sarabia M.B.B.S., M.D. [address] [place] [address] (Wo rk) 11/11/2021 Comprehensive Visit Orthopedic Surgery Ivan Deng M.D. 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
--- OUTSIDE RECORDS SUMMARY | 2021-11-07 19:45 | XMS_ITS | Encounter Summary ---
:1980 Author Organization [facility] Address [address] [place] [address] Care Team Providers Name Role Phone Unavailable Primary Care Provider Unavailable Encounter Details Date Type Department Care Team Description 04/12/2016 Hospital Encounter HX [facility] UROLOGY Kristy Singh APRN, R.N. [address] [place] [address] (Wo rk) Social History Tobacco Use Types Packs/Day Years Used Date Smoking Tobacco: Never Sex Assigned at Date Recorded Not on file documented as of this encounter Last Filed Vital Signs Vital Sign Reading Time Taken Comments Blood Pressure 134/66 04/12/2016 3:09 PM CHURCH ORGANIST Pulse 84 04/12/2016 3:09 PM CHURCH ORGANIST Temperature - - Respiratory Rate - - Oxygen Saturation - - Inhaled Oxygen Concentration - - Weight - - Height 172 cm (5' 7.72) 04/12/2016 3:09 PM CHURCH ORGANIST Body Mass Index - - documented in this encounter Progress Notes Rajani Singh APRN, R.N. - 04/12/2016 2:55 PM CST [id number] CHIEF COMPLAINT/REASON FOR VISIT Nocturia and urinary urgency and frequency. HISTORY OF PRESENT ILLNESS Narinder is a pleasant 35-year-old female here today for a recheck of her nocturia. She has a long history of nocturnal enuresis and still has nights where she is dreaming about using the bathroom and wakes up and she has already wet the bed. She does stay up quite late at night, sometimes until 1 or 2 in the morning. An hour before she goes to bed she takes her melatonin and oxybutynin. She does continue to drink fluids throughout the day right up until she goes to bed. We did discuss that she should try cutting down her fluid intake before bedtime. MEDICATIONS Reviewed per EMR. ALLERGIES No known allergies. PAST MEDICAL/SURGICAL HISTORY Reviewed per EMR. VITAL SIGNS Temperature 36.4, heart rate 84, blood pressure 134/66. Not a tobacco user. PHYSICAL EXAMINATION GENERAL: Well-developed, well-nourished, well-groomed 35-year-old female in no acute distress. She is alert, cooperative, oriented x3. HEAD: Normal appearance. No abnormalities. NECK: Symmetrical and supple. CARDIAC: Regular rate regular rhythm. RESPIRATORY: Respirations are unlabored. Normal respiratory rate. Normal respiratory movement. ABDOMEN: Soft, nontender, nondistended. EXTREMITIES: Warm without edema or ulcerations. DIAGNOSTICS Postvoid residuals 52 mL. IMPRESSION/REPORT/PLAN Urinary urgency and frequency and nocturia. We discussed that she should really cut back on her fluid intake for 3 to 4 hours before she goes to bed. This will likely help with urinating so much in thenight. She has sleep apnea for which she is compliant with her CPAP. She also is morbidly obese and will be seeing her and will be meeting with the surgeon that will be doing her gastric bypass on April 30 so she is hoping that will help things. She also starts pelvic floor physical therapy next week. After discussion we decided that we will also increase her oxybutynin to 15 mg 24-hour extended release tablet 1 tablet daily. She will take this in 1 to 2 hours before bedtime and she will cut back on fluids prior to bedtime as well. All of her questions are answered today. She is in agreement withthe plans that we have made. We will see her back in approximately 2 months. She also would like an order for larger Depends. She is unable to find the Depends that will fit her at [facility]. This is sent to her pharmacy as well. Rajani Singh N.P./scott Electronically Signed By: RAJANI SINGH APRN, RN On: 04/16/2016 09:07 AM Source: [facility] MHSDOLBEYNONRADSYS Document Id: [id number] CH ORGANIST documented in this encounter Miscellaneous Notes Miscellaneous - Rajani Singh APRN, R.N. - 04/12/2016 3:28 PM CHURCH ORGANIST Ambulatory Patient Summary [address] [id number] Visit Information Name: NARINDER LUCAS [facility] Number: [id number] Current Date: 04/12/2016 15:28:44 Physicians Attending Provider: RAJANI SINGH APRN, RN Primary Care Provider: PCP, [place] NARINDER LUCAS has been [...] Tablet(s), Oral, once a day oxybutynin (oxybutynin 15 mg/24 hr oral tablet, extended release) 1 Tablet(s), Oral, once a day Thisis a CHANGE Routed to [address] [id number] Stop Taking the Following Medications: Medication list as of 04-12-16 15:28 Attention: If you have any medications at [...] Signed By: RAJANI SINGH APRN RN Signed On:12-APR-2016 15:28:38 Your Allergies & Intolerances Substance Reaction Symptoms [...] BMI 45-49 posted on 03/02 at 10:28 CHURCH ORGANIST. Apnea Sleep Obstructive (CAMRYN) Active Your Upcoming Appointments Date Time Location Provider 05/04/2016 11:30 [facility] REGENERATION OPERATOR Katy Salas MD Attention: Contact your local [...] if you dont have one. Go to [email or web address] and click on Create Your Account. Then, follow the directions to complete the online form. Youll be asked for your [facility] number which you can find at the top of this document. Your Goals/Additional instructions: Source: [facility] POWERCHART Document Id: [id number] CH ORGANIST Miscellaneous - Rajani Singh APRN, R.N. - 04/12/2016 3:28 PM CHURCH ORGANIST Ambulatory Discharge Medication List [address] [id number] Visit Information Name: NARINDER LUCAS [facility] Number: [id number] Current Date: 04/12/2016 15:28:42 Attending Provider: RAJANI SINGH APRN, machine printer Provider: PCP, ELSEWHERE NARINDER LUCAS has been [...] Tablet(s), Oral, once a day oxybutynin (oxybutynin 15 mg/24 hr oral tablet, extended release) 1 Tablet(s), Oral, once a day Thisis a CHANGE Routed to [address] [id number] Stop Taking the Following Medications: Medication list as of 04-12-16 15:28 Attention: If you have any medications at [...] Signed By: RAJANI SINGH APRN, RN Signed On:12-APR-2016 15:28:38 Additional Information: Source: [facility] POWERCHART Document Id: [id number] CH ORGANIST Miscellaneous - Suha Beauchamp L.P.N. 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 Intake/History Adult Bleacher [employer]p Intake/History Entered On: 04/12/2016 15:13 CHURCH ORGANIST Performed On: 04/12/2016 15:09 CHURCH ORGANIST by SUHA BEAUCHAMP LPN Intake Chief Complaint : F/u Oxybutynin , helps in the day not much at night Temperature Core : 36.4 DegC(Converted to: 97.5 DegF) (LOW) Peripheral Pulse Rate : 84 /min Systolic Blood Pressure : 134 mmHg Diastolic Blood Pressure : 66 mmHg NIBP Mean : 89 mmHg Height : 172 cm(Converted to: 5 ft 8 inch(es), 68 inch(es)) SUHA BEAUCHAMP LPN - 04/12/2016 15:09 CHURCH ORGANIST General Info Information Given By : Patient Preferred Communication Mode : Verbal Languages : Malagasy Is Patient Female and 13-50 no hysterectomy : Yes Status : Patient denies Are you ? : No SUHA BEAUCHAMP COPIER OPERATOR - 04/12/2016 15:09 CHURCH ORGANIST Subjective Pain Symptoms : No SUHA BEAUCHAMP COPIER OPERATOR - 04/12/2016 15:09 CHURCH ORGANIST Dependent Habits Exposure to Tobacco Smoke : Other: never Smoking Status : Never smoker Tobacco 2A : No Tobacco Use/Currently Using : No Tobacco Use/Last 30 Days : No Tobacco Use/Last 12 months : No SUHA BEAUCHAMP COPIER OPERATOR - 04/12/2016 15:09 CHURCH ORGANIST Caffeine Use Grid Caffeine Use : Current Type : Coffee Frequency : Occasionally Amount : occ. 1-2x/week 1 c. coffee SUHA BEAUCHAMP [facility] - 04/12/2016 15:09 CHURCH ORGANIST [facility] Document Id: [id number] CHURCH ORGANIST!31 CH ORGANIST documented in this encounter Plan of Treatment Upcoming Encounters Date Type Specialty Care Team Description 11/09/2021 Office Visit Family Medicine Fadia Merchant M.D. [address] [place] [address] ( james) 11/10/2021 Office Visit Family Medicine Zacarias Sarabia M.B.B.S., M.D. [address] [place] [address] ( james) 11/11/2021 Comprehensive Visit Orthopedic Surgery Ivan Deng M.D. [address] [place] [phone] (Andrew ramirez) documented as of this encounter Visit Diagnoses Not on filedocumented in this encounter Additional Health Concerns Assessment Noted Time PHQ-9 Depression Total Score: 3 11/10/2015 2:04 PM CDT documented as of this encounter
--- OUTSIDE RECORDS SUMMARY | 2021-11-07 19:45 | XMS_ITS | Encounter Summary ---
:1980 Author Organization [facility] Address [address] [place] [address] Care Team Providers Name Role Phone Unavailable Primary Care Provider Unavailable Encounter Details Date Type Department Care Team Description 08/12/2015 Hospital Encounter HX [facility] INTERNMED Bindu Parr P.A.-C. [address] [place] [address] (Wo rk) Social History Tobacco [...] - Inhaled Oxygen Concentration - - Weight 133 kg (293 lb 10.4 oz) 08/12/2015 12:58 PM CDT Height 172 cm (5' 7.72) 08/12/2015 12:58 PM CDT Body Mass Index 45.02 08/12/2015 12:58 PM CDT documented in this encounter Nursing Notes Dayna Parr - 08/12/2015 12:00 AM CDT [id number] CHIEF COMPLAINT/REASON FOR VISIT Referral was completed by Katy Salas out of [facility] [place] for [place] 34-year-old female for weight management. Patient is accompanied by her 2-year-old son. HISTORY OF PRESENT ILLNESS DIET RECALL: Breakfast is cereal or a boiled egg or leftover spaghetti, bread, pasta, rice. Occasionally, she skips breakfast. Midmorning, she will tend to have a 2nd meal. She tends to eat 4 meals a day per her statement. Always has a banana with mealtimes. She is often eating up to 4 bananas a day. Lunch is usually rice, spaghetti, bread with some kind of a meat sauce, potatoes in the sauce, other tomato and vegetables in the sauce. Supper is a similar-type meal. No tea. No juice. She drinks 3 to 4 eight-ounce glasses of water daily. Milk none. Before bed, typically no snack. DIETARY SUPPLEMENTS: Per EMR. PHYSICAL ACTIVITY: Some stretching. Goes to physical therapy once a week. LIMITATIONS: Lower back pain. COMORBIDITIES: Per EMR. MEDICATIONS Reviewed EMR dated 08/12/2015. No changes. 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 WORK SCHEDULE: Part-time. MARITAL STATUS: . TOBACCO USE: None. ALCOHOL USE: None. VITAL SIGNS Height 172 cm, current body weight 133.2 kg, BMI 45.02. IMPRESSION/REPORT/PLAN DIAGNOSTICS: Hemoglobin A1c drawn on 07/01/2015 is 5.6%. IMPRESSION: A 34-year-old [place] female here for dietary education regarding weight management. Patient is morbidly obese related to excess calorie consumption, limited physical activity pattern. She does complain today of decreased energy, increased lower back pain making it harder to exercise. Did en courage her to follow through on her exercises with the physical therapist as well as gradually justtrying to move more in general as well as looking at macronutrient balance of carbohydrates to proteins to fats. She does express verbal understanding of all items. READINESS TO LEARN: Accepting. BARRIERS TO LEARNING: None. LEARNING METHOD PREFERRED: Reading, listening, seeing, doing. TEACHING METHOD USED: Printed materials, verbal discussion, demonstration, return demonstration. STAGE OF BEHAVIOR CHANGE: Preparation. EDUCATION OUTCOME: Verbalizes understanding, demonstrates correctly. Education topics covered today include: 1. Benefits of exercise, weight loss, and stress management. 2. Triggers for overeating / normalized eating. 3. Paying attention to satiety. 4. Fundamentals for healthy eating. 5. Weight loss barriers. 6. Suggestions for increasing (non-starchy vegetables, water). Estimated basal calorie needs: 1700 per day. Protein needs 64 g a day. Recommended meal plan 210 g of carbohydrate per day total, advised 30 to 60 g per meal, 0 to 30 per snack, 8 ounces meat or meat substitute per day and approximately 4 added fats. Other recommendations: 1. Healthy eating. The above meal plan, low-fat, low-cholesterol choices, no regular beverages, no stockpiling carbohydrates. Advised breakfast within 90 minutes of waking and a snack every 4 hours, 64ounces of water per day. 2. Gradually trying to move more. PLAN/FOLLOWUP: Plan to see patient back in approximately 1 month. Provided written material: My Food Plan from the [facility]. ADMINISTRATIVE BILLING Counseling Time: 30 minutes. Dayna Parr R.D., Alex/scott Electronically Signed By: DAYNA PARR On: 08/14/2015 04:24 PM Source: [facility] MHSDOLBEYNONRADSYS Document Id: [id number] documented in this encounter Miscellaneous Notes Miscellaneous - Dayna Parr - 08/12/2015 12:58 PM CDT Ambulatory Discharge Medication List [address] [id number] Visit Information Name: NARINDER LUCAS [facility] Number: [id number] Visit Date: 08/12/2015 12:58:11 Attending Provider: DAYNA PARR Primary Care Provider: PCP, NARINDER LOUIE has been given the following list of medications: Your Medications It is important to take your medications as directed. Use a pill box or chart to help remind you to take your medications. Please let your doctor or nurse know if you have problems taking your medications. Medication/Strength How to Take Indications/Special Instructions/Comments/Notes for Patient Medication Changes/Routing medroxyPROGESTERone (Provera 10 mg oral tablet) 1 Tablet(s), Oral, once a day multivitamin, ( Multivitamins oral tablet) 1 Tablet(s), Oral, once a day Stop Taking the Following Medications: Medication list as of 08-12-15 12:58 Attention: If you have any medications at home that are not on this list, DO NOT take them until youcontact your provider for clarification. Give a copy of your medication list to your primary care provider. Update your medication list any time medications or doses are changed and carry your medication list at all times in case of emergency. Electronically Signed By: DAYNA PARR Signed On:12-AUG-2015 12:58:06 Additional Information: Source: [facility] POWERCHART Document Id: [id number] Miscellaneous - Dayna Parr - 08/12/2015 12:58 PM CDT Ambulatory Patient Summary [facility] [address] [place] [id number] Visit Information Name: NARINDER LUCAS [facility] Number: [id number] Current Date: 08/12/2015 12:58:11 Physicians Attending Provider: DAYNA PARR Primary Care Provider: PCP, NARINDER LOUIE has [...] Take Indications/Special Instructions/Comments/Notes for Patient Medication Changes/Routing medroxyPROGESTERone (Provera 10 mg oral tablet) 1 Tablet(s), Oral, once a day multivitamin, ( Multivitamins oral tablet) 1 Tablet(s), Oral, once a day Stop Taking the Following Medications: Medication list as of 08-12-15 12:58 Attention: If you have any medications at home that are not on this list, DO NOT take them until youcontact your provider for clarification. Give a copy of your medication list to your primary care provider. Update your medication list any time medications or doses are changed and carry your medication list at all times in case of emergency. Electronically Signed By: DAYNA PARR Signed On:12-AUG-2015 12:58:06 Your Allergies & Intolerances Substance Reaction Symptoms [...] if you dont have one. Go to [email or web address] and click on Create Your Account. Then, follow the directions to complete the online form. Youll be asked for your [facility] number which you can find at the top of this document. 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 : No DAYNA PARR RD - 08/12/2015 12:58 CDT Subjective Pain Symptoms : Yes DAYNA PARR [facility] - 08/12/2015 12:58 CDT Pain Scale Pain Scale Verbal 0-10 : Open DAYNA PARR [facility] - 08/12/2015 12:58 CDT Pain Pain Assessment Grid Pain 1 Location : Other: lower back and bilateral leg pain DAYNA PARR [facility] - 08/12/2015 12:58 CDT Dependent Habits Exposure to Tobacco Smoke : Other: never Smoking Status : Never smoker Tobacco 2A : No Tobacco Use/Currently Using : No Tobacco Use/Last 30 Days : No Tobacco Use/Last 12 months : No Alcohol Use : No DAYNA PARR RD - 08/12/2015 12:58 CDT Caffeine Use Grid Caffeine Use : Current Type : Coffee Frequency : Occasionally Amount : occ. 1-2x/week 1 c. coffee DAYNA PARR [facility] - 08/12/2015 12:58 CDT [facility] Document Id: [id number] CDT!35 documented in this encounter Plan of Treatment Upcoming Encounters Date Type Specialty Care Team Description 11/09/2021 Office Visit Family Medicine Fadia Merchant M.D. [address] [place] [address] (Andrew ramirez) 11/10/2021 Office Visit Family Medicine Zacarias Sarabia M.B.B.S., M.D. [address] [place] [address] (Andrew ramirez) 11/11/2021 Comprehensive Visit Orthopedic Surgery Ivan Deng M.D. [address] [place], [place] [phone] (Andrew ramirez) documented as of this encounter Visit Diagnoses Not on filedocumented in this encounter Additional Health Concerns Assessment Noted Time PHQ-9 Depression Total Score: 11 09/11/2013 1:22 PM CD T documented as of this encounter
--- OUTSIDE RECORDS SUMMARY | 2021-11-07 19:45 | XMS_ITS | Encounter Summary ---
:1980 Author Organization [facility] Address [address] [place] [address] Care Team Providers Name Role Phone Unavailable Primary Care Provider Unavailable Encounter Details Date Type Department Care Team Description 07/21/2015 Hospital Encounter [facility]X [facility] Katy Salas M.D. [address] [place], [place] [phone] (Wo james) Social History Tobacco Use Types Packs/Day Years [...] - - Height 172 cm (5' 7.72) 07/21/2015 3:05 PM CDT Body Mass Index - - documented in this encounter Plan of Treatment Upcoming Encounters Date Type Specialty Care Team Description 11/09/2021 Office Visit Family Medicine Fadia Merchant M.D. [address] [place] [address] (Wo rk) 11/10/2021 Office Visit Family Medicine Zacarias Sarabia M.B.[facility], [place] [address] [place] [address] (Wo rk) 11/11/2021 Comprehensive Visit Orthopedic Surgery Ivan Deng M.D. [address] [place], [place] [phone] (Wo rk) documented as of this encounter Procedures Procedure Name Priority Date/Time Associated Diagnosis Comme nts PROGESTERONE, S Routine 07/21/2015 3:26 PM Result s for this CDT procedure are i n the results section. documented in this encounter Results Progesterone Level (07/21/2015 3:26 PM CDT) P athologist Signature Progesterone, S 0.52 [facility] POWERCHART Specimen (Source) Anatomical Collection Method Collection Time Re ceived Time Location / / Volume Laterality Blood 07/21/2015 3:26 PM CDT Katy Salas M.D. LAB BLOOD ADD-ON Performing Organization Address City/State/ZIP Code Phon e Number POWERCHART documented in this encounter Visit Diagnoses Not on filedocumented in this encounter Additional Health Concerns Assessment Noted Time PHQ-9 Depression Total Score: 11 09/11/2013 1:22 PM CD T documented as of this encounter
--- OUTSIDE RECORDS SUMMARY | 2021-11-07 19:45 | XMS_ITS | Encounter Summary ---
:1980 Author Organization [facility] Address [address] [place] [address] Care Team Providers Name Role Phone Unavailable Primary Care Provider Unavailable Encounter Details Date Type Department Care Team Description 07/01/2015 Hospital Encounter HX [facility] OBGYTony Campoverde M.D. [address] [place], [place] [phone] (Wo rk) Social History Tobacco Use Types Packs/Day Years Used Date Smoking Tobacco: Never Assessed Sex Assigned at Date Recorded Not on file documented as of this encounter Last Filed Vital Signs Vital Sign Reading Time Taken Comments Blood Pressure 116/60 07/01/2015 3:20 PM CDT Pulse 80 07/01/2015 3:20 PM CDT Temperature - - Respiratory Rate 16 07/01/2015 3:20 PM CDT Oxygen Saturation - - Inhaled Oxygen Concentration - - Weight 130 kg (287 lb 7.7 oz) 07/01/2015 3:20 PM CDT Height 172 cm (5' 7.72) 07/01/2015 3:20 PM CDT Body Mass Index 44.08 07/01/2015 3:20 PM CDT documented in this encounter Progress Notes Katy Carpio M.D. - 07/01/2015 3:09 PM CDT [id number] CHIEF COMPLAINT/REASON FOR VISIT Urinary symptoms, lower abdominal pain, lower back pain, irregular menses and infertility. HISTORY OF PRESENT ILLNESS Narinder is a 34-year-old para 1-0-0-1 female who presents for evaluation of urinary symptoms along with lower abdominal and low back pain, irregular menses, and concerns about infertility. She reports that over the last 2 weeks she has had a burning sensation with urination. She reports that it is like she is having alcohol on her bottom when she urinates. It is burning. She has had increased nocturia and gets up about 5 times overnight to urinate. She denies urinary frequency during the day. She alsonotices that sometimes she has incontinence of urine over night. She denies any blood in her urine. She has had no fevers or chills. She does notice low back pain that makes it difficult for her to do the dishes at the sink. This seems to be worse in the morning and gets better as the day progresses. She reports that her periods have not been regular since the of her child nearly 2 years ago atthe end of July 2013. Her cycles can be 50 to 54 days in length. Her most recent period from June 19 through the was very light, really just spotting. She has been trying to conceive since August 2014, when her came here, and has not been successful in conceiving. When she tried last time to get she got in less than 2 months. She reports significant weight gain. Today she weighs 130.4 kg which is up 25 kg since August 2013. She reports trying ntaj-sql-kpkzqto weight loss remedies without success. Finally, she has had a lot of swelling in both of her ankles and wonders ifthere is anything I can do for that. MEDICATIONS See medication list updated in the EMR today. ALLERGIES See allergy list updated in the EMR today. SYSTEMS REVIEW GENERAL: Positive for fatigue and weight gain - see HPI. No fevers or chills. HEENT: No changes in vision or hearing, no sore throat or nasal congestion. CARDIOVASCULAR: No chest pain, irregular heartbeat or racing heart. RESPIRATORY: No shortness of breath, cough or wheeze. GASTROINTESTINAL: Positivefor abdominal pain - see HPI. No nausea, vomiting, diarrhea, constipation. GENITOURINARY: Positive for burning with urination and leaking urine. No irregular vaginal bleeding, heavy periods, painful periods, abnormal vaginal discharge, leaking stool or gas. SKIN: No rashes or skin lesions. BREASTS: Nomasses or lumps, no discharge from the nipples. NEUROLOGIC: No difficulty with memory, numbness, tingling, falls. PSYCHIATRIC: Positive for difficulty sleeping. No anxiety or depression. ENDOCRINE: No heat intolerance, cold intolerance, excessive thirst or hair loss. PAST MEDICAL/SURGICAL HISTORY PAST MEDICAL HISTORY: See problem list updated in the EMR today. PAST SURGICAL HISTORY: See procedure list in the EMR updated today. 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 She has no history of STDs or abnormal Pap smears. SOCIAL HISTORY No tobacco, alcohol, or drug use. FAMILY HISTORY Sister with mental retardation. Otherwise negative for breast, ovarian, colon or uterine cancer, hyperlipidemia, hypertension or diabetes. VITAL SIGNS See results review section in the EMR. PHYSICAL EXAMINATION GENERAL: Well-nourished female, in no acute distress. HEAD: Normocephalic, atraumatic. EENT: Vision and hearing grossly intact. THYROID: No thyromegaly or nodularity. HEART: Regular rate and rhythm. No murmurs, rubs, or gallops. CHEST: Clear auscultation bilaterally. No wheezes or rales. ABDOMEN: Soft, nondistended, obese. Normoactive bowel sounds. Positive for diffuse tenderness to deep palpation, most prominent in the right upper quadrant, just lateral and superior to the umbilicus, and also in the left lower quadrant. No masses palpable. No rebound or guarding. GENITOURINARY: External genitalia with normal pubic hair distribution. No lesions or abnormalities external genitalia noted. Type 2 female circumcision present. Urethral meatus normal in location and appearance without masses. Vaginal mucosa: Wind[place]st and moist with a small amount of thin, clear discharge present in the posterior vaginal fornix. Vaginal pH is basic. The cervix appears nulliparous and is without gross lesions or abnormalities. On bimanual examination the uterus is small and difficult to palpate but nontender. No adnexal masses or tenderness noted. LOWER EXTREMITIES: Nontender, no edema. SKIN: The patient has a large erythematous patch beneath the left breast in the fold. It is somewhatdifficult to evaluate the appearance of this due to white cream that she has placed on it. She also has some hyperpigmented plaques in the right pannicular fold extending into the right inguinal fold and she also has a significant area in this right inguinal fold covered with a white cream as well. There is hyperpigmentation in the inguinal and pannicular folds consistent with acanthosis nigricans. There is also hyperpigmentation beneath the breast folds consistent with acanthosis nigricans. IMPRESSION/REPORT/PLAN A 34-year-old para 1-0-0-1 female who presents today with multiple complaints. 1. Burning with urination and low abdominal pain: Urinalysis today is completely normal. The patientseems to have burning more externally. Her vaginal pH is somewhat basic today. Wet prep was performed to evaluate for vulvovaginitis which could be contributing to this burning. We will be in touch with the patient once we have results. 2. Low back pain: This seems musculoskeletal in nature. The patient has been referred to physical therapy in the past but did not attend. A referral today was again sent. We will see how her back pain responds to this. Weight loss would also probably be helpful for this as well. 3. Weight gain with obesity: The patient has gained 25 kg over the last 2 years. I believe this is likely contributing to her menstrual issues, to the skin problems, and the back pain as well as the leg swelling. She has been trying negq-vsl-jatptqn remedies for weight loss but at this point I think she needs to see a scrap iron cutter to work on dietary modification. She also needs to increase her exercise. If this does not work then I will have her consider surgical intervention in the form of bariatric surgery. I think even a modest amount of weight loss would help her other symptoms significantly. 4. Lower extremity edema: I advised the patient that I think weight loss would be of significant benefit for this symptom. At this point, I do not want to give her Lasix on a regular basis. 5. Oligomenorrhea: The patient reports that her cycles are frequently 50 to 54 days. This last period from June 19 through the does not seem ovulatory as she had only spotting with it. This oligo-ovulation increases her risk of unopposed estrogen exposure and problems that come with that. At this point, I am going to order TSH and prolactin to evaluate this. However, I think it is most likely related to her weight gain. She denies acne or abnormal hair growth. She will return on July 10, day 21 of her cycle, to evaluate for ovulation. I would also like her to return on day 3 of her cycle forDay 3 FSH and estradiol. If we find that this is anovulation/oligo-ovulation then I will recommend that she continue her weight loss. We could regulate menses with oral contraceptive pills or consider metformin to help induce ovulation. She would like to get so I doubt she will want to be on oral contraceptive pills. However, we will need to encourage weight loss going forward. I am also concerned that her weight gain has increased her risk for diabetes. Therefore I have ordered a hemoglobin A1c today. She does have fairly diffuse acanthosis nigricans in the skin folds. She also has diffuse yeast below the breast folds and in the inguinal folds which can also be a sign of diabetes. 6. Yeast infections: The patient has yeast below the breasts and in the groin folds. I have given her nystatin cream to apply to this. If her symptoms below the breasts get worse, or are not significantly improved over the next 4 days, she should let me know as it was difficult to assess the area due to the cream that has been applied. I would like to make sure, if this is the case, that she does nothave a cellulitis or something else as the cause of the erythema. 7. Followup: The patient will return for labs on Day 21 and Day 3. I would like to see her back after that to see how she is doing with all of these issues. h ADMINISTRATIVE BILLING Twenty minutes of this 25-minute visit were spent in counseling the patient. Katy Carpio M.D./scott Electronically Signed By: KATY CARPIO MD On: 07/03/2015 12:42 PM Source: [facility] MHSDOLBEYNONRADSYS Document Id: [id number] documented in this encounter Procedure Notes Francine Carty, L.P.N. - 07/01/2015 4:39 PM CDT Urine Dipstick Urine Dipstick Entered On: 07/01/2015 16:40 CDT Performed On: 07/01/2015 16:39 CDT by FRANCINE CARTY FURNITURE MOVER DRIVER Urine Dipstick UA Color POC : Yellow UA Appear POC : Clear UA Leuk POC : Negative UA Nitrite POC : Negative UA Urobilinogen POC : 0.2 mg/dl UA Protein POC : Negative UA pH POC : 6.0 UA Blood POC : Negativ UA Spec Grav POC : 1.025 UA Ketones POC : Negative UA Bili POC : Negative UA Glucose POC : Negative FRANCINE CARTY LPN - 07/01/2015 16:39 CDT Source: [facility] POWERCHART Document Id: [id number] CDT!14 documented in this encounter Miscellaneous Notes Telephone Encounter - Conversion, Historical Provider Ser - 08/13/2015 2:32 PM CDT *Phone Message/Dr. Carpio Document Contains Addenda Addendum by PARUL WILHELM LPN on August 15, 2015 16:22:35 CDT Left message notifying patient. Addendum by KATY CARPIO MD on August 15, 2015 16:16:12 CDT From: KATY CARPIO MD To: Obstetrics/Gynecology Nurse; Sent: 08/15/2015 16:16:12 CDT Subject: RE: *Phone Message/Dr. Carpio She needs to come in to lab today for blood work before 5 pm. Otherwise, she will have to wait untilher next cycle for this. I would like to see her back in 1 week to discuss the results if she comes in today. If not, she will need to call with onset of her next period or if she has not had a period by day #35. Addendum by PARUL WILHELM LPN on August 15, 2015 15:51:29 CDT From: PARUL WILHELM LPN ( Obstetrics/Gynecology Nurse) To: KATY CARPIO MD; Sent: 08/15/2015 15:51:29 CDT Subject: FW: *Phone Message/Dr. Carpio Patient called and states that her bleeding got heavier later tuesday night and was heavy yesterday. States the bleeding is time recorder today and she has only gone thru 1 pad today. Please advise. Patient states it is ok to leave VM if she doesn't answer. Addendum by KATY CARPIO MD on August 14, 2015 12:28:01 CDT From: KATY ACRPIO MD To: Obstetrics/Gynecology Nurse; Sent: 08/14/2015 12:28:01 CDT Subject: RE: *Phone Message/Dr. Carpio I agree with plan. Addendum by JERMAN GANT RN on August 13, 2015 14:44:04 CDT From: JERMAN GANT RN ( Obstetrics/Gynecology Nurse) To: KATY CARPIO MD; Sent: 08/13/2015 14:44:04 CDT Subject: FW: *Phone Message/Dr. Carpio Started today. Spotting at this time. Instructed to call her when bleeding increases. If you would like anything further before she calls back please let me know. From: PRIYANK BERNAL ([facility]) To: Obstetrics/Gynecology Nurse; Sent: 08/13/2015 14:32:38 CDT Subject: *Phone Message/Dr. Carpio Caller is: (x ) Patient ( ) Mother ( ) Father ( ) Spouse ( ) Daughter ( ) Son ( ) Pharmacy ( ) Other: Physician: Dr. Carpio Patient MRN #: Reason for Call: Message: Patient was calling to speak with the nurse. She states that she got her period today and was supposed to call in when she got it. Please call her back at [phone] to advise. Advice/Action: Source used: ( ) Verbalizes understanding [...] back cell phone number ( ) Source: [facility] POWERCHART Document Id: [id number] Telephone Encounter - Conversion, Historical Provider Ser - 08/04/2015 1:16 PM CDT *Phone Message/dr carpio Document Contains Addenda Addendum by JERMAN GANT RN on August 12, 2015 09:11:36 CDT Called pt. No answer. Will call back later Addendum by KATY CARPIO MD on August 09, 2015 11:13:30 CDT From: KATY CARPIO MD To: Obstetrics/Gynecology Nurse; Sent: 08/09/2015 11:13:30 CDT Subject: RE: *Phone Message/dr carpio She should wait another week and let us know if she still has not had her period. Addendum by FRANCINE CARTY LPN on August 08, 2015 16:53:14 CDT From: FRANCINE CARTY LPN ( Obstetrics/Gynecology Nurse) To: KATY CARPIO MD; Sent: 08/08/2015 16:53:14 CDT Subject: FW: *Phone Message/dr carpio Patient called back at stated that she has not gotten her period since taking Rx Provera. She statedthat she missed 1 tablet while taking it. She would like to know what to do next. aRy dubose, sheis ok with a call back on Tuesday. Addendum by FRANCINE CARTY LPN on August 04, 2015 15:08:38 CDT Spoke with patient. She stated that she stopped the Rx- Provera on 07/30 and she has not had a period yet. I advised her that it may take 1 week after stopping the medication to get a period. She was instructed to let me know by the end of the week. All questions answered. Addendum by FRANCINE CARTY LPN on August 04, 2015 14:41:22 CDT Left message for patient to return call. From: ANIBAL MORALES ( [address] [place]) To: Obstetrics/Gynecology Nurse; Sent: 08/04/2015 13:16:35 CDT Subject: *Phone Message/dr carpio Caller is: ( x ) Patient ( ) Mother ( ) Father ( ) Spouse ( ) Daughter ( ) Son ( ) Pharmacy ( ) Other: Physician: Patient MRN #: Reason for Call: would like a return call, has some information. please call [phone]. Message: Advice/Action: Source used: ( ) Verbalizes understanding [...] back cell phone number ( ) Source: [facility] POWERCHART Document Id: [id number] Telephone Encounter - Conversion, Historical Provider Ser - 07/03/2015 2:48 PM CDT *Phone Message/[facility] Carpio Document Contains Addenda Addendum by FRANCINE CARTY LPN on July 03, 2015 14:56:58 CDT Spoke with patient. PT phone number was given to schedule an appt. All questions answered. From: TAY EASTMAN To: Obstetrics/Gynecology Nurse; Sent: 07/03/2015 14:48:02 CDT Subject: *Phone Message/[facility] Carpio Caller is: ( x ) Patient ( ) Mother ( ) Father ( ) Spouse ( ) Daughter ( ) Son ( ) Pharmacy ( ) Other: Physician: Patient MRN #: Reason for Call: Patient called needing clarification regarding if someone will be calling her or ifshe needs to call someone to schedule physical therapy. She did schedule her lab appointment for 07/11/15 and appointment with Paper Coating Supervisor. Please call her at [phone]. Message: Advice/Action: Source used: ( ) Verbalizes understanding [...] back cell phone number ( ) Source: [facility] POWERCHART Document Id: [id number] Miscellaneous - Katy Carpio M.D. - 07/01/2015 6:45 PM CDT Normal Results Letter July 01, 2015 NARINDER LUCAS [address] [facility] [address] Dear NARINDER LUCAS, I am pleased to report that your results from the following diagnostic test(s) are normal. Please follow up with us as we discussed during your visit or sooner if you have any concerns. If you have questions or concerns, please do not hesitate to call our office. Result Name Current Result Normal Range Hgb A1c (% A1C) 5.6 07/01/2015 - <=5.6 TSH (mIU/L) 1.30 07/01/2015 0.27 - 4.20 Prolactin (ng/mL) 9.9 07/01/2015 3.0 - 27.0 Sincerely, KATY CARPIO [address] [place] [address] [address] [place] [address] Electronic Signature Electronically Signed By: KATY CARPIO MD On: July 01, 2015 This document has images extracted. Source: [facility] [employer] Studio Document Id: [id number] Miscellaneous - Francine Carty LEliseoP.N. - 07/01/2015 4:32 PM CDT Edger Tailer Documentation Edger Tailer Documentation Entered On: 07/01/2015 16:32 CDT Performed On: 07/01/2015 16:32 CDT by FRANCINE CARTY LPN Edger Tailer Documentation Exam/Procedure Performed : Pelvic exam CD Edger Tailer Present : Yes CD Edger Tailer Name : Barbra Carty LPN Present in Room During Exam/Procedure : Alone FRANCINE CARTY LPN - 07/01/2015 16:32 CDT Source: [facility] [employer] Document Id: [id number] CDT!6 Miscellaneous - Katy Carpio M.D. - 07/01/2015 4:31 PM CDT Ambulatory Discharge Medication List [address] [id number] Visit Information Name: NARINDER LUCAS [facility] Number: [id number] Visit Date: 07/01/2015 16:31:17 Attending Provider: KATY CARPIO MD Primary Care Provider: PCP, NARINDER LOUIE [...] tablet) 1 Tablet(s), Oral, once a day nystatin topical (nystatin 100,000 units/g topical cream) 1 bolivar, Topical, three times a day x 14 day(s) New Routed to [address] [id number] Stop Taking the Following Medications: Medication list as of 07-01-15 16:31 Attention: If you have any medications at home that are not on this list, DO NOT take them until youcontact your provider for clarification. Give a copy of your medication list to your primary care provider. Update your medication list any time medications or doses are changed and carry your medication list at all times in case of emergency. Electronically Signed By: KATY CARPIO MD Signed On:01-JUL-2015 16:31:16 Additional Information: Source: [facility] POWERCHART Document Id: [id number] Miscellaneous - Katy Carpio M.D. - 07/01/2015 4:31 PM CDT Ambulatory Patient Summary [address] [id number] Visit Information Name: NARINDER LUCAS [facility] Number: [id number] Current Date: 07/01/2015 16:31:18 Physicians Attending Provider: KATY CARPIO MD Primary Care Provider: PCP, NARINDER LOUIE [...] tablet) 1 Tablet(s), Oral, once a day nystatin topical (nystatin 100,000 units/g topical cream) 1 bolivar, Topical, three times a day x 14 day(s) New Routed to [place] [address] [place], [place] [phone] Stop Taking the Following Medications: Medication list as of 07-01-15 16:31 Attention: If you have any medications at home that are not on this list, DO NOT take them until youcontact your provider for clarification. Give a copy of your medication list to your primary care provider. Update your medication list any time medications or doses are changed and carry your medication list at all times in case of emergency. Electronically Signed By: KATY CARPIO MD Signed On:01-JUL-2015 16:31:16 Your Allergies & Intolerances Substance Reaction Symptoms [...] if you dont have one. Go to [email or web address] and click on Create Your Account. Then, follow the directions to complete the online form. Youll be asked for your [facility] number which you can find at the top of this document. Your Goals/Additional instructions: Source: [facility] POWERCHART Document Id: [id number] Miscellaneous - WakeFrancine L.P.N. - 07/01/2015 3:20 PM CDT Adult Analysis Evaluator Intake/History Document Has Been Updated Adult Analysis Evaluator Intake/History Entered On: 07/01/2015 15:23 CDT Performed On: 07/01/2015 15:20 CDT by FRANCINE CARTY LPN Intake Chief Complaint : Cramping, lower abd. pain, burning with urination Onset of Symptoms : 2 weeks LMP Date : 06/20/2015 Peripheral Pulse Rate : 80 /min Respiratory Rate : 16 /min Heart Rhythm : Regular Systolic Blood Pressure : 116 mmHg Diastolic Blood Pressure : 60 mmHg NIBP Mean : 79 mmHg BP Location : Right upper extremity Blood Pressure Cuff Size : Large Height : 172 cm(Converted to: 5 ft 8 inch(es), 68 inch(es)) Actual Weight : 130.4 kg(Converted to: 287 lb 8 oz) Weight Source : Standing scale Dosing Weight Clinic : 130.4 kg Clinic BSA : 2.5 Body Mass Index : 44.08 kg/m2 FRANCINE CARTY LPN - 07/01/2015 15:20 CDT General Info Languages : [place]guill[place] Is Patient Female and 13-50 no hysterectomy : Yes Status : Patient denies Are you ? : No FRANCINE CARTY LPN - 07/01/2015 15:20 CDT Subjective Pain Symptoms : No FRANCINE CARTY LPN - 07/01/2015 15:20 CDT Dependent Habits Exposure to Tobacco Smoke : Other: never Smoking Status : Never smoker Tobacco 2A : No Tobacco Use/Currently Using : No Tobacco Use/Last 30 Days : No Tobacco Use/Last 12 months : No FRANCINE CARTY LPN - 07/01/2015 15:20 CDT Caffeine Use Grid Caffeine Use : Current Type : Chocolate, Coffee, Soft drinks, Tea Frequency : Daily FRANCINE CARTY LPN - 07/01/2015 15:20 CDT Allergy (As Of: 07/01/2015 15:23:21 CDT) Allergies (Active) NKA Estimated Onset Date: Unspecified ; Created By: ODALIS BORRERO; Reaction Status: Active ; Category: Drug ; Substance: NKA ; Type: Allergy ; Updated By: ODALIS BORRERO; Reviewed Date: 07/01/2015 15:17 CDT [facility] POWER[facility] Document Id: [id number] CDT!38 documented in this encounter Plan of Treatment Upcoming Encounters Date Type Specialty Care Team Description 11/09/2021 Office Visit Family Medicine Fadia Merchant M.D. [address] [place] [address] (Wo rk) 11/10/2021 Office Visit Family Medicine Zacarias Sarabia M.B.B.S., M.D. [address] [place] [address] (Wo rk) 11/11/2021 Comprehensive Visit Orthopedic Surgery Ivan Deng M.D. [address], [place] [phone] (Wo rk) documented as of this encounter Procedures Procedure Name Priority Date/Time Associated Comments Diagnosis VAGINITIS BATTERY, Routine 07/01/2015 5:37 PM Res ults for this DNA (GENITAL) CDT procedure are in the results section. DIPSTICK, POCT, U Routine 07/01/2015 4:39 PM Resu lts for this (NURSING) INTERFACED CDT procedu re are in the results section. TESTOSTERONE, TOT, Routine 07/01/2015 4:35 PM Res ults for this BIOAVAILABLE, AND CDT procedure are in FREE, S the results section. SEX HORMONE-BINDING Routine 07/01/2015 4:35 PM Re sults for this GLOBULIN (SHBG), S CDT procedure are in the results section. PROLACTIN, S Routine 07/01/2015 4:35 PM Results f or this CDT procedure are i n the results section. THYROID-STIMULATING Routine 07/01/2015 4:35 PM Re sults for this HORMONE-SENSITIVE CDT procedure are in (S-TSH) the results section. HEMOGLOBIN A1C, B Routine 07/01/2015 4:35 PM Resu lts for this CDT procedure are i n the results section. documented in this encounter Results VAGINITIS BATTERY, DNA (GENITAL) (07/01/2015 5:37 PM CDT) Component Value Ref Test Analysis Performed At [facility] Range Method Time Signature HXVaginitis POWERCHART Battery, DNA (Genital) HXFinal Trichomonas POWERCHART vaginalis DNA negative HXFinal Gardnerella POWERCHART vaginalis DNA negative HXFinal Kenna species POWERCHART DNA negative HXFinal Reference: POWERCHART Negative Specimen (Source) Anatomical Collection Method Collection Time Re ceived Time Location / / Volume Laterality Vagina 07/01/2015 5:37 PM CDT Authorizing Provider Result Kristan Carpio M.D. LAB HISTORICAL ORDERS Performing Organization Address [facility]/ZIP Code Phon e Number POWERCHART Dipstick, POCT, Urine (nursing) (07/01/2015 4:39 PM CDT) [facility] Method Time Signature Color Yellow POWERCHART Appearance Clear POWERCHART Leukocytes, Negative POWERCHART POCT, U Nitrites, POCT, Negative POWERCHART U Urobilinogen, 0.2 mg/dl POWERCHART POCT, Urine Protein, POCT, Negative POWERCHART U pH, POCT, Urine 6.0 5.0 - 9.0 POWERCHART Blood, POCT, U Negativ POWERCHART Specific 1.025 1.000 - POWERCHART [place], POCT, 1.030 U Ketone, POCT, U Negative POWERCHART Bilirubin, Negative POWERCHART POCT, U Glucose, POCT, Negative POWERCHART U Specimen (Source) Anatomical Collection Method Collection Time Re ceived Time Location / / Volume Laterality 07/01/2015 4:39 PM CDT Authorizing Provider Result Kristan Carpio M.D. LAB POCT ORDERABLES - DEVICE Performing Organization Address City/[facility]/ZIP Code Phon e Number POWERCHART Hemoglobin A1c (07/01/2015 4:35 PM CDT) athologist Signature Hemoglobin A1c, 5.6 <=5.6 A1C POWERCHART B Specimen (Source) Anatomical Collection Method Collection Time Re ceived Time Location / / Volume Laterality Blood 07/01/2015 4:35 PM CDT Authorizing Provider Result Kristan Carpio M.D. LAB BLOOD ADD-ON Performing Organization Address City/[facility]/ZIP Code Phon e Number POWERCHART Sex Hormone-Binding Globulin (SHBG) (07/01/2015 4:35 PM CDT) athologist Signature Sex Hormone 32 NMOLL POWERCHART Binding Globulin, S Comment: REFERENCE VALUE------ [id number] (non-) Test Performed by: [place] [address] [place] Man: Brad Reyes II, M.D., Ph.D. Specimen (Source) Anatomical Collection Method Collection Time Re ceived Time Location / / Volume Laterality Blood 07/01/2015 4:35 PM CDT Katy Carpio M.D. LAB BLOOD ADD-ON Performing Organization Address City/State/ZIP Code Phon e Number POWERCHART Testosterone, Total, Bioavailable, and Free (07/01/2015 4:35 PM CDT) athologist Signature Testosterone, 34 8 - 60 NGDL POWERCHART Total Comment: ADDITIONAL INFORMATIO N Testing performed by Liquid Chromatograp hy-Tandem Mass Spectrometry (LC-MS/MS). % Free Testosterone 0.78 0.06 - 1.03 NGDL POW ERCHART Comment: ADDITIONAL INFORMATIO N Testing performed by Equilibrium Dialysi s. Testosterone, Bioavailable, S 7.8 NGDL POWERCHART Comment: REFERENCE VALUE------ Females (non-oophorectomized): 0.8-4.0 (On oral estrogen) 0.8-10 (Not on oral estrogen) ADDITIONAL INFORMATIO N Testing performed by Differential Precip itation. Test Performed by: [place] [address] [place] Man: Brad Reyes II, M.D., Ph.D. Specimen (Source) Anatomical Collection Method Collection Time Re ceived Time Location / / Volume Laterality Blood 07/01/2015 4:35 PM CDT Katy Carpio M.D. LAB BLOOD NON ADD-ON Performing Organization Address City/State/ZIP Code Phon e Number POWERCHART Prolactin Level (07/01/2015 4:35 PM CDT) P athologist Signature Prolactin Total 9.9 3.0 - 27.0 POWERCHART NGML Specimen (Source) Anatomical Collection Method Collection Time Re ceived Time Location / / Volume Laterality Blood 07/01/2015 4:35 PM CDT Katy Carpio M.D. LAB BLOOD ADD-ON Performing Organization Address City/State/ZIP Code Phon e Number POWERCHART Thyroid-Stimulating Hormone-Sensitive (s-TSH) (07/01/2015 4:35 PM CDT) P athologist Signature TSH 1.30 0.27 - 4.20 POWERCHART (Thyrotropin) MIUL Specimen (Source) Anatomical Collection Method Collection Time Re ceived Time Location / / Volume Laterality Blood 07/01/2015 4:35 PM CDT Katy Carpio M.D. LAB BLOOD ADD-ON Performing Organization Address City/[facility]/ZIP Code Phon e Number POWERCHART documented in this encounter Visit Diagnoses Not on filedocumented in this encounter Additional Health Concerns Assessment Noted Time PHQ-9 Depression Total Score: 11 09/11/2013 1:22 PM CD T documented as of this encounter
--- OUTSIDE RECORDS SUMMARY | 2021-11-07 19:45 | XMS_ITS | Encounter Summary ---
:1980 Author Organization [facility] Address [address] [place] [address] Care Team Providers Name Role Phone Unavailable Primary Care Provider Unavailable Encounter Details Date Type Department Care Team Description 03/02/2016 Hospital Encounter HX [facility] OBGYTony Campoverde M.D. [address] [place], [place] [phone] (Wo rk) Social History Tobacco Use Types Packs/Day Years Used Date Smoking Tobacco: Never Sex Assigned at Date Recorded Not on file documented as of this encounter Last Filed Vital Signs Vital Sign Reading Time Taken Comments Blood Pressure 82/58 03/02/2016 10:28 AM MEAT APPRENTICE Pulse 60 03/02/2016 10:28 AM MEAT APPRENTICE Temperature - - Respiratory Rate 14 03/02/2016 10:28 AM MEAT APPRENTICE Oxygen Saturation - - Inhaled Oxygen Concentration - - Weight 140 kg (309 lb 8.4 oz) 03/02/2016 10:28 AM MEAT APPRENTICE Height 172 cm (5' 7.72) 03/02/2016 10:28 AM MEAT APPRENTICE Body Mass Index 47.46 03/02/2016 10:28 AM MEAT APPRENTICE documented in this encounter Progress Notes Kristi Landaverde M.D. - 03/02/2016 10:02 AM CST [id number] CHIEF COMPLAINT/REASON FOR VISIT Followup of multiple symptoms. HISTORY OF PRESENT ILLNESS Narinder is a 35-year-old para 1-0-0-1 female who presents today for followup of several concerns. I last saw her on October 14, 2015, when she presented for followup of urinary symptoms, low abdominal and low back pain, irregular menses, and concerns about infertility. These symptoms dated back to June 2015 when she initially brought them to my attention. When I saw her last she reported increasing nocturia, getting up about 5 times overnight to urinate and sometimes having incontinence at that time. She denied urinary frequency during the day. Urinalysis was performed back in June and returned completely normal other than a slightly elevated specific gravity. When I saw her in October she reported being started on desmopressin by a urologist at [facility]. She reported no improvement in her nocturnalenuresis with that. I started her on Detrol LA at the time of the last visit and she also reports noimprovement in her symptoms with that so she stopped taking it. At the time of the last visit she also described irregular menses with long cycles ranging from 50 to 54 days. She had significant weightgain since her baby was born in July 2013. I had sent her to a doping supervisor in the past and that didnot help a whole lot but, when I saw her last, she was doing SlimGenics and has actually lost about 11 or 12 pounds with that. She desires to lose more weight and is pursuing bariatric surgery. In the meantime she has been seeing a psychologist at [facility] to assist her in completing the program required before bariatric surgery. She reports that has not helped her a whole lot with weight loss. In fact, since I saw her last in October, her weighted is up 11 kg. She reports that she is no longer able to do SlimGenics because it is difficult for her to afford. She is interested in other options to help her lose weight. She reports that since I saw her last she did have a spontaneous period in January but that was after skipping periods in November and December. The plan in the past was that, if she goes for more than 35 days without a period, she will call for a course of Provera. The period in January lasted 3 days. She has not called me when her cycles have been longer than 35 days. FSH and estradiol in the past returned normal. She has no evidence of hyperandrogenism, either symptomatically or biochemical evidence of this. Prolactin assessed in the past was normal as well. Today she also complains of fatigue and difficulty sleeping. She reports taking melatonin 9 mg each night to help with this. She reports that she was told to do that by the psychologist at [facility]. She is noticing that she wakes up during the night and still cannot function. She is also noticing extreme daytime fatigue and overall just not feeling well. MEDICATIONS See medication list updated in the EMR today. ALLERGIES See allergy list updated in the EMR today. SYSTEMS REVIEW GENERAL: Positive for fatigue and weight gain. No fevers, chills, unintentional weight loss. HEENT: No changes in vision or hearing, [...] falls. PSYCHIATRIC: Positive for difficulty sleeping. No anxiety, depression, or difficulty sleeping. ENDOCRINE: No heat intolerance, cold intolerance, excessive thirst or hair loss. VITAL SIGNS See results review section updated in the EMR today. PHYSICAL EXAMINATION General: Well-nourished female in no acute distress. IMPRESSION/REPORT/PLAN A 34-year-old para 1-0-0-1 female who presents for followup of multiple complaints today. 1. Weight gain with obesity: The patient lost weight with SlimGenics but has not been able to continue that. Since stopping she has gained 11 kg over the last 4 months. I have given her the number to call [facility] for a nutrition consult or even to enroll in their program. I have given her the cost of this. She has seen a doping supervisor in the past but that was not overly helpful for her. Hopefully the hands-on experience at [facility] will be more helpful. Also she intends to pursue bariatric surgery and is going to be going back to [place] for this. She has completed her psychological program that was required prior to weight loss surgery. 2. Oligomenorrhea: She had a spontaneous period in January but skipped November and December. I reinforced the plan that she will call if her cycle goes for more than 35 days and I will give her a course of Provera. As noted above she has no symptoms or biochemical evidence of hyperandrogenism so she does not meet criteria for PCOS. Ovulatory evaluation returned normal as well. Hopefully weight loss will help with this issue. Prior to proceeding with infertility treatment we would need to obtain an AMH and semen analysis. Also her BMI will need to be less than 40 and it is currently in the 40s. 3. Yeast infections: The patient has no complaints of this today. 4. Nocturnal enuresis and nocturia: The patient stopped the desmopressin since that was not helping.She also stopped the Detrol LA since that was not helping. I have ordered a referral to Urology at this time for further evaluation and management of this. 5. Fatigue and difficulty with sleep: The patient does have obstructive sleep apnea which, again, should be improved with weight loss. However she is waking up and unable to fall back asleep. She is currently taking melatonin 9 mg daily. We have discussed that this is a supratherapeutic dose. The recommended dose for sleep is 0.1 to 0.3 mg and, as noted above, currently she is on 9 mg. Elevated higher doses can cause supraphysiologic concentrations of melatonin and contribute to daytime sleepiness, impaired mental and physical performance, hypothermia and hyperprolactinemia. I believe that many of her symptoms that she complains of today may be due to this dose of melatonin that is much too high. 6. Followup: Two months. Kristi Landaverde M.D./scott Electronically Signed By: KRISTI LANDAVERDE MD On: 03/09/2016 08:38 PM Source: [facility] [email or web address] Document Id: [id number] APPRENTICE documented in this encounter Miscellaneous Notes Miscellaneous - Beronica Calvert, L.P.N. - 03/02/2016 10:28 AM CST Adult Home Organizer Intake/History Document Has Been Updated Adult Home Organizer Intake/History Entered On: 03/02/2016 10:29 MEAT APPRENTICE Performed On: 03/02/2016 10:28 MEAT APPRENTICE by MACHELLE, BERONICA L [employer] APPRAISER Intake Chief Complaint : Follow up LMP Date : 01/24/2016 Peripheral Pulse Rate : 60 /min Respiratory Rate : 14 /min Heart Rhythm : Regular Systolic Blood Pressure : 82 mmHg (<LLOW) Diastolic Blood Pressure : 58 mmHg NIBP Mean : 66 mmHg BP Location : Right upper extremity Blood Pressure Cuff Size : Large Height : 172 cm(Converted to: 5 ft 8 inch(es), 68 inch(es)) Actual Weight : 140.4 kg(Converted to: 309 lb 8 oz) Weight Source : Standing scale Dosing Weight Clinic : 140.4 kg Clinic BSA : 2.59 Body Mass Index : 47.46 kg/m2 BERONICA CALVERT LPN - 03/02/2016 10:28 MEAT APPRENTICE General Info Languages : Lao Is Patient Female and 13-50 no hysterectomy : Yes Status : Patient denies Are you ? : No BERONICA CALVERT LPN - 03/02/2016 10:28 MEAT APPRENTICE Subjective Pain Symptoms : No BERONICA CALVERT LPN - 03/02/2016 10:28 MEAT APPRENTICE Dependent Habits Exposure to Tobacco Smoke : Other: never Smoking Status : Never smoker Tobacco 2A : No Tobacco Use/Currently Using : No Tobacco Use/Last 30 Days : No Tobacco Use/Last 12 months : No BERONICA CALVERT LPN - 03/02/2016 10:28 MEAT APPRENTICE Caffeine Use Grid Caffeine Use : Current Type : Coffee Frequency : Occasionally Amount : occ. 1-2x/week 1 c. coffee BERONICA CALVERT LPN - 03/02/2016 10:28 MEAT APPRENTICE Allergy (As Of: 03/02/2016 10:29:55 MEAT APPRENTICE) Allergies (Active) NKA Estimated Onset Date: Unspecified ; Created By: ODALIS BORRERO; Reaction Status: Active ; Category: Drug ; Substance: NKA ; Type: Allergy ; Updated By: ODALIS BORRERO; Reviewed Date: 03/02/2016 10:27 MEAT APPRENTICE Source: [facility] POWERCHART Document Id: [id number] APPRENTICE!38 APPRENTICE documented in this encounter Plan of Treatment Upcoming Encounters Date Type Specialty Care Team Description 11/09/2021 Office Visit Family Medicine Fadia Merchant M.D. [address] [place] [address] (Wo rk) 11/10/2021 Office Visit Family Medicine Zacarias Sarabia M.B.B.S., M.D. [address] [place] [phone] (Wo rk) 11/11/2021 Comprehensive Visit Orthopedic Surgery Ivan Deng M.D. [address], [place] [phone] (Wo rk) documented as of this encounter Visit Diagnoses Not on filedocumented in this encounter Additional Health Concerns Assessment Noted Time PHQ-9 Depression Total Score: 3 11/10/2015 2:04 PM CDT documented as of this encounter
--- OUTSIDE RECORDS SUMMARY | 2021-11-07 19:45 | XMS_ITS | Encounter Summary ---
:1980 Author Organization [facility] Address [address] [place] [address] Care Team Providers Name Role Phone Shreya Dean M.D. Primary Care Provider Reason for Visit Reason Comments Sleep study results Last visit 11/04/17. Outpatient (Routine) - Closed Specialty Diagnoses / Procedures Referred By Contact Refer red To Contact Neurology Ignacia Michaud M.D ., M.P.H. [facility] [address] [address] Referral ID Status Reason Start Date Expiration Date Visits Requ ested Visits Authorized [id number] Closed 11/04/2017 11/04/2018 1 1 Encounter Details Date Type Department Care Team Description 02/16/2018 Office Visit Department of Ignacia Michaud, Apnea Slee p Obstructive Neurology in [place], M.P.H. (Primary Dx) [place], [place] [address] [phone] Social History Tobacco Use Types Packs/Day Years Used Date Smoking Tobacco: Never Smokeless Tobacco: Never Sex Assigned at Date Recorded Not on file documented as of this encounter Last Filed Vital Signs Vital Sign Reading Time Taken Comments Blood Pressure 125/70 02/16/2018 10:48 AM SUPERINTENDENT CONSTRUCTION Pulse 96 02/16/2018 10:48 AM SUPERINTENDENT CONSTRUCTION Temperature - - Respiratory Rate - - Oxygen Saturation - - Inhaled Oxygen Concentration - - Weight 146 kg (322 lb 15.6 oz) 02/16/2018 10:48 AM SUPERINTENDENT CONSTRUCTION Height - - Body Mass Index 51.29 12/14/2017 2:34 PM SUPERINTENDENT CONSTRUCTION documented in this encounter Progress Notes Ignacia Michaud M.D., M.P.H. - 02/16/2018 10:45 AM CST SUBJECTIVE CHIEF COMPLAINT / REASON FOR VISIT Narinder Lucas is a 37 y.o. female who presents for evaluation of Sleep study results (Last visit11/04/17.). HISTORY OF PRESENT ILLNESS Patient has a longstanding history of loud snoring and feeling sleepy. She previously had seen Dr. Zacarias Ro diagnosed her with mild obstructive sleep apnea and she had a CPAP machine. She did not usethat. Enough and had to return. This saw her back and ordered other split night study. Her apnea-hypopnea index was 8.5 and her total respiratory disturbance index was 15.4. She said she slept better than night that she had the CPAP machine in the lab that she slept for quite some time and felt less tired. Patient appears very motivated to get another CPAP machine. We talked about the fact that she needs to use the device for 4 hr but does not have before continuous hours. She was titrated with a medium Quattro fullface mask and I have ordered that for her. We also talked about sleep deprivation resulting in weight gain which has been a problem for her. Reviewed her sleep study in detail with her and answered all her questions Past Medical History: Diagnosis Date ??? Constipation Slow Transit ??? Depression Major Recurrent (HCC) ??? Incontinence Urinary Stress Female ??? Menstrual Irregularity ??? Morbid Obesity Body Mass Index 40.0-44.9 Adult (HCC) ??? Pain Low Back Chronic Past Surgical History: Procedure Laterality Date ??? SECTION N/A 07/30/2013 section MEDICATIONS: Current Outpatient Prescriptions: ??? CHOLECALCIFEROL 1,000 unit tablet, , Disp: , Rfl: ??? citalopram (CeleXA) 20 mg tablet, Take 1 tablet (20 mg total) by mouth daily., Disp: 30 tablet, Rfl: 0 ??? oxybutynin (DITROPAN-XL) 5 mg 24 hr tablet, 5 mg., Disp: , Rfl: ??? omega-3 fatty acids-fish oil 300-1,000 mg capsule, Take 2 g by mouth daily., Disp: , Rfl: ALLERGY: No Known Allergies Family History Problem [...] History Narrative ??? No narrative on file OBJECTIVE Vitals: 02/16/18 1048 BP: 125/70 Pulse: 96 PHYSICAL EXAM Patient is alert and in no acute distress I did not do detailed examination at today's visit as I reviewed her download and ordered her CPAP machine. I will plan to see her back in 2 months. Total time with the patient today was 20 min that was all counseling. Ignacia Michaud M.D., M.P.H. Answers for HPI/ROS submitted by the patient on 12/26/2017 Fatigue: Yes Weight gain of more than 10 pounds: Yes RINTENDENT CONSTRUCTION documented in this encounter Plan of Treatment Upcoming Encounters Date Type Specialty Care Team Description 11/09/2021 Office Visit Family Medicine Fadia Merchant M.D. [address] [place] [phone] (Andrew ramirez) 11/10/2021 Office Visit Family Medicine Zacarias Sarabia M.B.B.S., M.D. [address] [place] [phone] (Andrew ramirez) 11/11/2021 Comprehensive Visit Orthopedic Surgery Ivan Deng M.D. [address] [phone] (Wo rk) documented as of this encounter Visit Diagnoses Diagnosis Apnea Sleep Obstructive - Primary Pain Knee Left - Primary documented in this encounter Additional Health Concerns Assessment Noted Time PHQ-9 Depression Total Score: 9 12/26/2017 3:39 PM SUPERINTENDENT CONSTRUCTION documented as of this encounter Care Teams Roll Icer Relationship Specialty Start Date End Date Shreya Dean M.D. PCP - General Family Medicine 12/14/17 01/07/19 documented as of this encounter
--- OUTSIDE RECORDS SUMMARY | 2021-11-07 19:45 | XMS_ITS | Encounter Summary ---
:1980 Author Organization [facility] Address [address] [place] [address] Care Team Providers Name Role Phone Unavailable Primary Care Provider Unavailable Encounter Details Date Type Department Care Team Description 09/26/2015 Hospital Encounter [facility] Kristi Landaverde M.D. [address] [place], [place] [phone] (Wo rk) Social History [...] - - Height 172 cm (5' 7.72) 09/26/2015 2:13 PM CDT Body Mass Index - - documented in this encounter Miscellaneous Notes Telephone Encounter - Conversion, Historical Provider Ser - 10/07/2015 4:15 PM CDT *Phone Message/Dr. Canada Document Contains Addenda Addendum by FRANCINE CARTY LPN on October 07, 2015 16:51:22 CDT Spoke with patient, all questions answered. She will wait for appt. next week with Dr. Landaverde. From: PRIYANK BERNAL ( [facility] [employer]) To: Obstetrics/Gynecology Nurse; Sent: 10/07/2015 16:15:43 CDT Subject: *Phone Message/Dr. Canada Caller is: ( x) Patient ( ) Mother ( ) Father ( ) Spouse ( ) Daughter ( ) Son ( ) Pharmacy ( ) Other: Physician: Dr. Landaverde Patient MRN #: Reason for Call: Message: Patient is worried about her lab tests and would like to speak with the nurse. Please call her back at [phone]. Advice/Action: Source used: ( ) Verbalizes understanding [...] back cell phone number ( ) Source: [facility] Vicino Document Id: [id number] Telephone Encounter - Parul Wilhelm, L.P.N. - 10/01/2015 3:46 PM CDT *Phone Message Document Contains Addenda Addendum by PRIYANK BERNAL on October 07, 2015 14:49:26 CDT From: PRIYANK BERNAL ( [employer] [employer]) To: Obstetrics/Gynecology Nurse; Sent: 10/07/2015 14:49:26 CDT Subject: FW: *Phone Message There was an opening on October 13 at 8:30, so I called the patient and rescheduled her appointment. Addendum by PARUL WILHELM LPN on October 07, 2015 08:09:42 CDT From: PARUL WILHELM LPN ( Obstetrics/Gynecology Nurse) To: KRISTI LANDAVERDE MD; Sent: 10/07/2015 08:09:42 CDT Subject: FW: *Phone Message Noted. Addendum by PRIYANK BERNAL on October 06, 2015 16:56:55 CDT From: PRIYANK BERNAL ( [employer]) To: Obstetrics/Gynecology Nurse; Sent: 10/06/2015 16:56:55 CDT Subject: FW: *Phone Message I got a hold of the patient to make sure that she knows that I scheduled her for October 27 at 1:15. She was thinking that the appointment was tomorrow at 1:15. She would really like to be seen sooner if possible than the 27 of October. She would like to be on a cancellation list if anything opens up sooner. Addendum by PRIYNAK BERNAL on October 06, 2015 11:20:41 CDT From: PRIYANK BERNAL ([facility] [employer]) To: PARUL WILHELM LPN; Sent: 10/06/2015 11:20:41 CDT Subject: RE: *Phone Message Scheduled patient for 1:15 on October 27 and left message on her phone. Addendum by PARUL WILHELM LPN on October 06, 2015 09:05:53 CDT From: PARUL WILHELM LPN To: [facility] [employer]; Sent: 10/06/2015 09:05:53 CDT Subject: FW: *Phone Message Please call patient to get her scheduled for an appointment in clinic to discuss test results with Dr. Landaverde for next available. Patient does not require an paper steamer. Addendum by KRISTI LANDAVERDE MD on October 02, 2015 08:27:36 CDT From: KRISTI LANDAVERDE MD To: PARUL WILHELM LPN; Sent: 10/02/2015 08:27:36 CDT Subject: RE: *Phone Message She needs to schedule an appointmet to discuss the results of all of her testing and to determine a plan. It is too much information to discuss briefly in a phone call. From: PARUL WILHELM LPN To: KRISTI LANDAVERDE MD; Sent: 10/01/2015 15:46:26 CDT Subject: *Phone Message Caller is: ( x ) Patient ( ) Mother ( ) Father ( ) Spouse ( ) Daughter ( ) Son ( ) Pharmacy ( ) Other: Physician: Patient MRN #: Reason for Call: Patient stopped in to the clinic and was wanting the results of her blood work from09/25. Notified that the results are back but that I am unsure how to interpret these. Advised that someone from the clinic will call her tomorrow with the results. Message: Advice/Action: Source used: ( ) Verbalizes [...] back cell phone number ( ) Source: [facility] POWERCHART Document Id: [id number] documented in this encounter Plan of Treatment Upcoming Encounters Date Type Specialty Care Team Description 11/09/2021 Office Visit Family Medicine Fadia Merchant M.D. [address] [place] [address] (Andrew ramirez) 11/10/2021 Office Visit Family Medicine Zacarias Sarabia M.B.B.S., M.D. [address] [place] [address] (Andrew ramirez) 11/11/2021 Comprehensive Visit Orthopedic Surgery Ivan Deng M.D. [address] [place], [place] [phone] (Wo rk) documented as of this encounter Procedures Procedure Name Priority Date/Time Associated Diagnosis Comme nts ESTRADIOL, S Routine 09/26/2015 2:19 PM Results f or this CDT procedure are i n the results section. FOLLICLE-STIM Routine 09/26/2015 2:19 PM Results for this HORMONE (FSH), S CDT procedure a re in the results section. documented in this encounter Results Estradiol Level (09/26/2015 2:19 PM CDT) athologist Signature Estradiol, Mass 38 PGML POWERCHART Spectrometry, S Comment: REFERENCE VALUE------ Premenopausal: 15-350 (E2 levels vary wi quinten through the menstrual cycle.) Postmenopausal: <10 Test Performed by: [place] [address] Dual Rate Supervisor: Brad Reyes II, M.D., Ph.D. Specimen (Source) Anatomical Collection Method Collection Time Re ceived Time Location / / Volume Laterality Blood 09/26/2015 2:19 PM CDT Kristi Landaverde M.D. LAB BLOOD NON ADD-ON Performing Organization Address City/State/[facility] Code Phon e Number POWERCHART FSH (Follicle-Stimulationg Hormone) (09/26/2015 2:19 PM CDT) athologist Signature Follicle-Stim 7.8 1.8 - 113.6 POWERCHART Hormone (FSH), MIUML S Comment: Biotin has been identified by the lucy banegas as a potential interfering substance. Higher concentrations of biotin may be found in multivitamins, hair/nail supplements, and workout supplements. If the result does not match clinical observat ions, repeat testing after patient refrains from the use of supplements for at least 12 hours. Specimen (Source) Anatomical Collection Method Collection Time Re ceived Time Location / / Volume Laterality Blood 09/26/2015 2:19 PM CDT Kristi Landaverde M.D. LAB BLOOD ADD-ON Performing Organization Address City/State/ZIP Code Phon e Number POWERCHART documented in this encounter Visit Diagnoses Not on filedocumented in this encounter Additional Health Concerns Assessment Noted Time PHQ-9 Depression Total Score: 11 09/11/2013 1:22 PM CD T documented as of this encounter
--- OUTSIDE RECORDS SUMMARY | 2021-11-07 19:45 | XMS_ITS | Encounter Summary ---
:1980 Author Organization [facility] Address [address] [place] [address] Care Team Providers Name Role Phone Unassigned, Pcp Primary Care Provider Unavailable Reason for Referral Outpatient (Routine) - Closed Specialty Diagnoses / Procedures Referred By Contact Refer red To Contact Neurology Diagnoses Sleep Apnea Shreya Dean M.D. [facility] Region [address] [place] [address] Referral ID Status Reason Start Date Expiration Date Visits V isits Requested Authorized [id number] Closed Specialty 09/23/2017 09/23/2018 1 1 Services Required Reason for Visit Reason Comments Sleep Apnea Encounter Details Date Type Department Care Team Description 09/23/2017 Office Visit [facility] of [facility] Shreya Dean Mor bid Obesity Body Mass Index Greater Than Or Equal To 40 Adult (HCC) (Primary Dx); Kasandra Lopez M.D. Sleep Enuresis; Clinic, in [address] Sleep Apnea; [place], [place] Incontinence Urinary Stress Female; [address] [address] Depression Major Recurrent (HCC); [place], [place] [phone] Deficiency Vit [place] D [id number] (Work) [phone] Social History Tobacco Use Types Packs/Day Years Used Date Smoking Tobacco: Never Smokeless Tobacco: Never Sex Assigned at Date Recorded Not on file documented as of this encounter Last Filed Vital Signs Vital Sign Reading Time Taken Comments Blood Pressure 120/70 09/23/2017 4:43 PM CDT Pulse 80 09/23/2017 4:43 PM CDT Temperature 36 ??C (96.8 ??F) 09/23/2017 4:43 PM CDT Respiratory Rate 16 09/23/2017 4:43 PM CDT Oxygen Saturation 99% 09/23/2017 4:43 PM CDT Inhaled Oxygen Concentration - - Weight 150 kg (331 lb 0.3 oz) 09/23/2017 4:43 PM CDT Height 169 cm (5' 6.54) 09/23/2017 4:43 PM CDT Body Mass Index 52.57 09/23/2017 4:43 PM CDT documented in this encounter Progress Notes Shreya Dean M.D. - 09/23/2017 4:45 PM CDT CHIEF COMPLAINT/REASON FOR VISIT Multiple issues HISTORY OF PRESENT ILLNESS This 36-year old female presents to clinic secondary to multiple issues. She has been sleeping poorly and this is been a longstanding problem. She was given a CPAP unit which she did not use on a regular basis as she was having a difficult time getting used to the unit and it was removed by her insurance company. She would be interested in retrialing this product if it would help her sleep. She did have a gastric bypass consult [facility] May 2016. While she realizes she does need to lose weight she is somewhat fearful about the procedure itself. She took some type of plqv-lcc-lpigjyj medication and lost 15 lb. When she restarted eating in a normal matter she gained all the weight back and then some. She has had problems longstanding with stress incontinence and had therapy at the [facility] Physical therapy Department and she would like to return for additional treatments. She does take medication i.e. oxybutynin for this issue and it is somewhat helpful. She is not truly short of breath. She is having no palpitations. With all of the above symptoms she feels her mood has decompensated to adegree. She is still doing all of her activities of daily living including caring for her autistic son. EMR reviewed. MEDICATION RECONCILIATION Current Outpatient Prescriptions: [...] mouth daily., Disp: 90 tablet, Rfl: 0 No Known Allergies REVIEW OF SYSTEMS Negative [...] stated age. Depression: Yes, PHQ -9 score 7 Asthma: No Lipids: Have been advised. Tdap booster: 07/05/2013 Pneumovax: Non applicable secondary to stated age. Influenza: Non applicable secondary to time of year. DEXA scan: Non applicable secondary to stated age. ?? SOCIAL HISTORY No alcohol Occasional tea with episodic soda Family History Problem Relation Age of Onset ??? Hypertension Father ??? TB - Pulmonary tuberculosis Mother ??? Hyperlipidemia Mother ??? No Known Problems Maternal Grandmother ??? No Known Problems Maternal Grandfather ??? No Known Problems Paternal Grandmother ??? No Known Problems Paternal Grandfather Vitals: 09/23/17 1643 BP: 120/70 Patient Position: Sitting Pulse: 80 Temp: 36 ??C Resp: 16 Height: 169 cm Weight: (!) 150.1 kg SpO2: 99% TempSrc: Temporal PHYSICAL EXAM General: Neatly dressed well groomed. HEENT: PERRL. EOMs are full. Ears: TMs are sanchez, good visualization of landmarks. Nose: Mucosal membranes pink and moist. Oral: No exudates. Teeth in good condition. No pharyngeal erythema. Neck: Rangeof motion consistent with patient's stated age body habitus. Trachea midline. Lymph nodes: No cervical adenopathy. Thyroid: No thyroid masses, tenderness or enlargement. Heart: Regular rate and rhythm. No clicks, rubs or murmurs. Lungs: Clear to auscultation. No palpable chest wall masses. Abdomen: Soft, nontender, bowel sounds present, no organomegaly but exam is limited secondary to body habitus. MENTAL:?? Speech is of normal rate and volume, articulate, coherent, spontaneous with no notation ofabnormalities.?? Thought processes reveal intact abstract reasoning and computation.?? No loose tangential circumstantial thoughts.?? No hallucinations.?? No delusions.?? No preoccupation with violence.?? No homicidal or suicidal ideations.?? Some somatic and psychosocial ruminations.?? Gaining insight into situation and illness process.?? Oriented to person, place and time.?? Recent and remote memory are intact.?? Attention span and concentration are at baseline.?? Language and fund of knowledge suggest average intellect.?? Mood and affect reflect no evidence of depression, anxiety, agitation, hypomania or emotional lability.?? ASSESSMENT/PLAN 1. Sleep apnea-progressive 2. Sleep enuresis with stress incontinence-progressive 4. Morbid obesity-progressive 5. Major recurrent depression with recent flare 6. History of vitamin-D deficiency with evaluation in process Supportive measures discussed in detail. Patient would benefit from a CPAP unit. We will arrange appointment with Neurology to see if she would be able to reobtain this unit. She may need to have another sleep study or home titration study for reassessment. Will recommend physical therapy for additional treatments of her stress incontinence which has been helpful in the past. Documentation is completed for the [facility] Physical therapy Department. Will increase her sertraline. She will bring in her xzhc-iud-bataopi weight loss medications for MD review at her upcoming visit in 1 month. Will check labs today with a CBC, basic metabolic profile, AST, TSH and vitamin-D level following up accordingly Risks and benefits of medications discussed. All questions answered. Signs and symptoms to lead to emergent evaluation are reviewed. See the medication reconciliation and preventive services. She will consider her options. Spent 20 of the 35 minute visit in discussion. documented in this encounter Plan of Treatment Upcoming Encounters Date Type Specialty Care Team Description 11/09/2021 Office Visit Family Medicine Fadia Merchant M.D. [address] [place] [address] (Wo rk) 11/10/2021 Office Visit Family Medicine Zacarias aSrabia M.B.B.S., M.D. [address] [place] [address] (Wo rk) 11/11/2021 Comprehensive Visit Orthopedic Surgery Ivan Deng M.D. [address] [place], [place] [phone] (Andrew rk) Scheduled Referrals Name Type Priority Associated Diagnoses Order S chedule Neurology - General Outpatient Referral Routine Sleep Apnea E xpected: consult (clinic) 09/23/2017 (Approximate), Expires: 09/23/2020 documented as of this encounter Procedures Procedure Name Priority Date/Time Associated Comments Diagnosis 25-HYDROXYVITAMIN D2 AND Routine 09/23/2017 5:31 Deficiency Vi tamin Results for this D3, S PM CDT D procedure are i n the results section. CBC WITH DIFFERENTIAL, B Routine 09/23/2017 5:31 Morbid Obesit y Results for this PM CDT Body Mass Index procedure ar e in Greater Than Or the results Equal To 40 Adult section. (HCC) Sleep Apnea Depression Major Recurrent (HCC) ASPARTATE Routine 09/23/2017 5:31 Morbid Obesity Results fo r this AMINOTRANSFERASE (AST), PM CDT Body Mass Index p rocedure are in S/P Greater Than Or the results Equal To 40 Adult section. (HCC) Sleep Apnea THYROID-STIMULATING Routine 09/23/2017 5:31 Morbid Obesity Res ults for this HORMONE-SENSITIVE PM CDT Body Mass Index procedu re are in (S-TSH) Greater Than Or the results Equal To 40 Adult section. (HCC) Sleep Apnea Depression Major Recurrent (HCC) BASIC METABOLIC PANEL, Routine 09/23/2017 5:31 Morbid Obesity Results for this S/P PM CDT Body Mass Index procedure ar e in Greater Than Or the results Equal To 40 Adult section. (HCC) Sleep Enuresis Sleep Apnea Incontinence Urinary Stress Female Depression Major Recurrent (HCC) documented in this encounter Results 25-Hydroxyvitamin D2 and D3 (09/23/2017 5:31 PM CDT) P athologist Signature 25-Hydroxy D2 12 ng/mL 09/27/2017 [facility] 7:26 AM CDT [facility] 25-Hydroxy D3 9.2 ng/mL 09/27/2017 [facility] 7:26 AM CDT [facility] 25-Hydroxy D 21 ng/mL 09/27/2017 [facility] Total 7:26 AM CDT [facility] Comment: ----REFERENCE VALUE---- 25-HYDROXY D TOTAL (D2+D3) Optimum level s in the healthy population are 20-50, patients with bone disease may benefit from higher levels within this r luther. ----ADDITIONAL INFORMATION---- This test was developed and its performa nce characteristics determined by [facility] in a manner consistent with CLIA requirements. This test has not been cleared or approved by the [place] and Drug Administration. Specimen Anatomical Collection Method Collection Time Receive d Time (Source) Location / / Volume Laterality Blood (Blood, 09/23/2017 5:31 PM 09/27/19 18 7:52 Venous) CDT AM CDT Shreya Dean M.D. LAB BLOOD ADD-ON Performing Organization Address City/State/ZIP Code Phon e Number [facility] [address] [place], [place] [address] [facility] AST (Aspartate Aminotransferase) (09/23/2017 5:31 PM CDT) Patholo gist Method Time Signature Aspartate 25 8 - 43 09/23/2017 [facility] Aminotransferase U/L 7:18 PM CDT [facility] LAB Specimen Anatomical Collection Method Collection Time Receive d Time (Source) Location / / Volume Laterality Blood (Blood, 09/23/2017 5:31 PM 09/24/19 18 6:14 Venous) CDT PM CDT Shreya Dean M.D. LAB BLOOD ADD-ON Performing Organization Address City/State/ZIP Code Phon e Number [facility] [address] [place] [address] LAB S-TSH (Thyroid-Stimulating Hormone - Sensitive) (09/23/2017 5:31 PM CDT) athologist Signature TSH, Sensitive 1.9 0.3 - 4.2 09/23/2017 [facility] mIU/L 7:[address] [facility] Comment: Biotin has been identified by the lucy banegas as a potential interfering substance. ??Higher concentr ations of biotin may be found in multivitamins, hair/nail supple ments, and workout supplements. ??If the result does not [facility] clinical observations, repeat testing after patient refrains fr om the use of supplements for at least 12 hours. Specimen Anatomical Collection Method Collection Time Receive d Time (Source) Location / / Volume Laterality Blood (Blood, 09/23/2017 5:31 PM 09/24/19 18 6:14 Venous) CDT PM CDT Shreya Dean M.D. LAB BLOOD ADD-ON Performing Organization Address City/State/ZIP Code Phon e Number [facility] [address] [place] [id number] LAB (ABNORMAL) BMP (Basic Metabolic Panel) (09/23/2017 5:31 PM CDT) athologist Signature Potassium, S 4.5 3.6 - 5.2 09/23/2017 [facility] mmol/L 7:[address] [facility] Sodium, S 141 135 - 145 09/23/2017 [facility] mmol/L 7:18 PM CDT [facility] Chloride, S 103 98 - 107 09/23/2017 [facility] mmol/L 7:[address] [facility] Bicarbonate, S 25 22 - 29 09/23/2017 [facility] mmol/L 7:[address] [facility] Anion Gap 13 7 - 15 09/23/2017 [facility] 7:[address] [facility] BUN (Blood Urea 12 6 - 21 09/23/2017 [facility] Nitrogen), S mg/dL 7:18 PM CDT [facility] Creatinine 0.74 0.59 - 09/23/2017 [facility] 1.04 mg/dL 7:[address] [facility] eGFR-Non >90 >=60 09/23/2017 [facility] Black/ mL/min/BSA 7:18 PM CDT [facility] [place] [facility] Comment: ----ADDITIONAL INFORMATION---- Estimated GFR calculated using the 2009 CKD_EPI creatinine equation. eGFR-Black/ >90 >=60 mL/min/BSA 2017 7:18 PM [facility]- [facility] LAB Comment: ----ADDITIONAL INFORMATION---- Estimated GFR calculated using the 2009 CKD_EPI creatinine equation. Calcium, Total, S 9.1 8.6 - 10.0 mg/dL 09/23/2017 7:[address] [facility] Glucose, S 141 (H) 70 - 140 mg/dL 09/23/2017 7:[address] [facility] Specimen Anatomical Collection Method Collection Time Receive d Time (Source) Location / / Volume Laterality Blood (Blood, 09/23/2017 5:31 PM 09/24/19 18 6:14 Venous) CDT PM CDT Shreya Dean M.D. LAB BLOOD ADD-ON Performing Organization Address City/State/ZIP Code Phon e Number [facility] [address] [place] [id number] LAB CBC with Differential, Blood (09/23/2017 5:31 PM CDT) P athologist Signature Hemoglobin 13.0 11.6 - 09/23/2017 [facility] 15.0 g/dL 5:35 PM CDT [facility] Hematocrit 39.4 35.5 - 09/23/2017 [facility] 44.9 % 5:35 PM CDT [facility] Erythrocytes 4.30 3.92 - 09/23/2017 [facility] 5.13 5:35 PM CDT [facility] x10(12)/L [facility] MCV 91.6 78.2 - 09/23/2017 [facility] 97.9 fL 5:35 PM CDT [facility] RBC Distrib Width 13.5 12.2 - 09/23/2017 [facility] 16.1 % 5:35 PM CDT [facility] [place] [facility] Platelet Count 290 157 - 371 09/23/2017 [facility] x10(9)/L 5:35 PM CDT [facility] Leukocytes 6.9 3.4 - 9.6 09/23/2017 [facility] x10(9)/L 5:35 PM CDT [facility] Neutrophils 3.98 1.56 - 09/23/2017 [facility] 6.45 5:35 PM CDT HEALTH x10(9)/L SYSTEM- [place] [facility] Lymphocytes 2.18 0.95 - 09/23/2017 [facility] 3.07 5:35 PM CDT [facility]ALTH x10(9)/L SYSTEM- [place] [facility] Monocytes 0.58 0.26 - 09/23/2017 [facility] 0.81 5:35 PM CDT [facility]ALTH x10(9)/L SYSTEM- [place] [facility] Eosinophils 0.12 0.03 - 09/23/2017 [facility] 0.48 5:35 PM CDT HEALTH x10(9)/L SYSTEM- [place] [facility] Basophils 0.02 0.01 - 09/23/2017 [facility] 0.08 5:35 PM CDT [facility] x10(9)/L SYSTEM- [place] [facility] Specimen Anatomical Collection Method Collection Time Receive d Time (Source) Location / / Volume Laterality Blood (Blood, 09/23/2017 5:31 PM 09/24/19 18 5:33 Venous) CDT PM CDT Shreya Dean M.D. LAB BLOOD ADD-ON Performing Organization Address City/State/ZIP Code Phon e Number [facility]- [address] [place] [address] [facility] [address] [place] [address] [place] [address] [place] [facility] documented in this encounter Visit Diagnoses Diagnosis Morbid Obesity Body Mass Index Greater T frias Or Equal To 40 Adult (HCC) - Primary Sleep Enuresis Sleep Apnea Incontinence Urinary Stress Female Depression Major Recurrent (HCC) Deficiency Vitamin D Pain Knee Left - Primary documented in this encounter Additional Health Concerns Assessment Noted Time PHQ-9 Depression Total Score: 7 09/25/2017 6:49 AM CDT documented as of this encounter Care Teams Senior Bookkeeper Relationship Specialty Start Date End Date Unassigned, Pcp PCP - General Family Medicine 09/23/17 12/13/17 documented as of this encounter
--- OUTSIDE RECORDS SUMMARY | 2021-11-07 19:45 | XMS_ITS | Encounter Summary ---
:1980 Author Organization [facility] Address [address] [place] [address] Care Team Providers Name Role Phone Unavailable Primary Care Provider Unavailable Encounter Details Date Type Department Care Team Description 09/11/2013 Hospital Encounter HX [facility] OBTony Carrillo M.D. [address] [place], [place] [phone] (Wo rk) Social History Tobacco Use Types Packs/Day Years Used Date Smoking Tobacco: Never Assessed Sex Assigned at Date Recorded Not on file documented as of this encounter Last Filed Vital Signs Vital Sign Reading Time Taken Comments Blood Pressure 116/64 09/11/2013 11:33 AM CDT Pulse 66 09/11/2013 11:33 AM CDT Temperature - - Respiratory Rate - - Oxygen Saturation - - Inhaled Oxygen Concentration - - Weight 108 kg (238 lb 1.6 oz) 09/11/2013 11:33 AM CDT Height 172 cm (5' 7.72) 09/11/2013 11:33 AM CDT Body Mass Index 36.51 09/11/2013 11:33 AM CDT documented in this encounter H&P Notes Kristi Landaverde M.D. - 09/11/2013 11:14 AM CDT [id number] CHIEF COMPLAINT/REASON FOR VISIT visit. HISTORY OF PRESENT ILLNESS Narinder is a 32-year-old para 1-0-0-1 female who is 6 weeks 1 day status post primary low transverse section who presents for visit today. Overall Narinder is doing well. She is voiding, ambulating, and tolerating a regular diet without difficulty. She has had some increased c onstipation recently. She also began having vaginal bleeding yesterday associated with crampy low abdominal pain. The father of the baby is not here and so she does not have a need for contraception atthis point. However, she does complain of feeling very tired and having a depressed mood. This does not seem to be improving. She has expressed some concerns about this since the baby was born. MEDICATIONS See EMR. ALLERGIES See EMR. SYSTEMS REVIEW GENERAL: No fevers, chills, fatigue, unintentional weight loss or weight gain. HEENT: No changes in vision or hearing, no sore throat or nasal congestion. CARDIOVASCULAR: No chest pain, irregular heartbeat or racing heart. RESPIRATORY: No shortness of breath, cough or wheeze. GASTROINTESTINAL: No nausea, vomiting, diarrhea, constipation or abdominal pain. GENITOURINARY: Positive for occasional leaking urine. No pain or burning with urination, no irregular vaginal bleeding, heavy periods, painful periods, abnormal vaginal discharge, leaking stool or gas. SKIN: No rashes or skin lesions. BREASTS: No masses or lumps, no discharge from the nipples. NEUROLOGIC: No difficulty with memory, numbness, tingling, falls. PSYCHIATRIC: No anxiety, depression, or difficulty sleeping. Positive for anxiety and depression - see HPI. ENDOCRINE: No heat intolerance, cold intolerance, excessive thirst or hair loss. PAST MEDICAL/SURGICAL HISTORY PAST MEDICAL HISTORY: 1. Latent tuberculosis. 2. Depression. 3. GERD. 4. Urinary incontinence and nocturnal enuresis. PAST SURGICAL HISTORY: section x1. OBSTETRIC/GYNECOLOGIC HISTORY Para 1-0-0-1 female, status post section x1. No history of sexually transmitted diseases orabnormal Pap smears. SOCIAL HISTORY No tobacco, alcohol, or drug use. The patient's is not currently in the area. FAMILY HISTORY No breast, ovarian, colon, or uterine cancer. No family history of diabetes. Sister with mental retardation. VITAL SIGNS See EMR. PHYSICAL EXAMINATION GENERAL: Well-nourished female, in no acute distress. HEAD: Normocephalic, atraumatic. EENT: Vision and hearing grossly intact. CARDIOVASCULAR: Regular rate and rhythm, no murmurs, rubs, or gallops. CHEST: Clear to auscultation bilaterally, no wheezes or rales. LYMPH NODES: No supraclavicular, infraclavicular, or axillary lymphadenopathy. BREASTS: Symmetric bilaterally, no lesions or dimpling of the skin noted, no dominant masses palpable, nipples without inversion or drainage. ABDOMEN: Soft, nondistended, nontender, normoactive bowel sounds, no masses palpable. Pfannenstiel skin incision is clean, dry, and intact and healing well. PELVIC: External genitalia without lesions or abnormalities. Normal pubic hair distribution. 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 The vaginal mucosa is pink and moist with a small amount of thin, clear discharge present in the posterior vaginal fornix, cervix appears nulliparous and is without lesions or abnormalities. On bimanual examination, the uterus is small, anteverted, nontender, no adnexal masses or tenderness noted. LOWER EXTREMITIES: Nontender, no edema. SKIN: No rashes or lesions. Pfannenstiel skin incision is healing well as noted above. IMPRESSION/REPORT/PLAN 1. A 32-year-old, para 1-0-0-1 female who is 6 weeks 1 day status post primary low transverse section who presents for visit today. 2. progress. Overall the patient is making excellent progress. She is voiding,ambulating and tolerating a regular diet without difficulty. She is having some constipation and haslikely resumed menses. 3. Constipation. She was encouraged to use the Senna S up to 2 tablets 2 times a day as needed. She was counseled that this can take some time to improve. She also has MiraLAX and can use that if she prefers it. If these are not working for her she needs to let me know. She has been straining and thiscould be causing her to have some pain around her incision. 4. History of depression with likely depression. The patient's PHQ-9 score is 11 today. We discussed the option of psychotherapy or pharmacotherapy. She would like to start on medication. I will start her on Zoloft 50 mg daily. She was counseled regarding the risks, benefits and side effects of this medication as well as the issue of increased motivation prior to increased mood and how that can contribute to suicidal ideation. If she has any of those thoughts she was counseled to call me immediately or call the on-call doctor. 5. Vaginal bleeding. The patient has likely resumed menses. She was counseled regarding this today. 6. Latent tuberculosis. When I see the patient next I will refer her back to Primary Care for treatment for latent tuberculosis. 7. Urinary incontinence and nocturnal enuresis. I will assess whether the patient is still having issues with this when she returns. 8. Difficult social situation. The patient has had a lack of support but is involved with [facility] and has also been going to [employer]. She seems to be doing much better with this and have adequate resources. 9. Followup in 3 weeks. Kristi Landaverde M.D./scott Electronically Signed By: KRISTI LANDAVERDE MD On: 09/24/2013 05:49 PM Modified by and Electronically Signed by: KRISTI LANDAVERDE MD On: 09/24/2013 05:49 PM Source: [facility] MHSDOLBEYNONRADSYS Document Id: [id number] documented in this encounter Miscellaneous Notes Miscellaneous - Kristi Landaverde M.D. - 09/19/2013 2:31 PM CDT Ambulatory Patient Summary [facility] [address] [place] [id number] Visit Information Name: NARINDER LUCAS [facility] Number: [id number] Visit Date: 09/19/2013 14:31:34 Attending Provider: KRISTI LANDAVERDE MD; KRISTI LANDAVERDE MD Primary Care Provider: PCP, [...] medications. Medication/Strength Dose Route Frequency Indications/Special Instructions/Comments/Notes sertraline (Zoloft 50 mg oral tablet) 50 mg Oral once a day Attention: If you have any medications at [...] Electronically Signed By: KRISTI LANDAVERDE MD Signed On:19-SEP-2013 14:31:31 Additional Information: Source: [facility] [employer] SpineCHART Document Id: [id number] Miscellaneous - Kristi Landaverde M.D. - 09/19/2013 2:31 PM CDT Ambulatory Discharge Medication List [address] [id number] Visit Information Name: NARINDER LUCAS [facility] Number: [id number] Visit Date: 09/19/2013 14:31:33 Attending Provider: KRISTI LANDAVERDE MD; KRISTI LANDAVERDE MD Primary Care Provider: PCP, [...] medications. Medication/Strength Dose Route Frequency Indications/Special Instructions/Comments/Notes sertraline (Zoloft 50 mg oral tablet) 50 mg Oral once a day Attention: If you have any medications at [...] Electronically Signed By: KRISTI LANDAVERDE MD Signed On:19-SEP-2013 14:31:31 Additional Information: Source: [facility] Document Id: [id number] Cierra - Viktoria Barahona, RAndrew. - 09/11/2013 1:22 PM CDT PHQ-9 PHQ-9 Entered On: 09/11/2013 13:23 CDT Performed On: 09/11/2013 13:22 CDT by VIKTORIA BECKWITH PHQ-9 Little interest or pleasure in doing things : More than half the days Feeling down, depressed, or hopeless : More than half the days Trouble falling or staying asleep, or sleeping too much : More than half the days Feeling tired or having little energy : Nearly every day Poor appetite or overeating : More than half the days Feeling bad about yourself or that you are a failure : Not at all Trouble concentrating on things : Not at all Moving or speaking slowly; restless or fidgety : Not at all Thoughts that you would be better off /hurting self : Not at all PHQ-9 Calculated Score : 11 Problems make work, home, or dealing with others : Very difficult VIKTORIA BECKWITH - 09/11/2013 13:22 CDT Source: [employer] Document Id: [id number] CDT!13 Cierra - Kristi Landaverde M.D. - 09/11/2013 12:11 PM CDT Work Excuse 11 September 2013 NARINDER LUCAS [address] [place] [id number] Dear NARINDER LUCAS, You were examined in my office on: 09/11/2013 Reason for work excuse: Medical Illness ( _ ) Yes ( _ ) No Injury ( _ ) Yes ( _ ) No Is excused from all work: ( _ ) Yes ( X ) No Has work limitations: ( _ ) Yes ( X ) No As follows: _ Limitations apply until: _ Follow-Up Appointment : ( _ ) Return to Work date: 09/26/2013 Notes: _ Sincerely, KRISTI LANDAVERDE [address] [place] [id number] Electronic Signature Electronically Signed By: KRISTI LANDAVERDE MD On: 11 September 2013 This document has images extracted. 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 Entered On: 09/11/2013 11:33 CDT Performed On: 09/11/2013 11:33 CDT by VIKTORIA BECKWITH Intake Chief Complaint : post c/s 07/30 Peripheral Pulse Rate : 66 /min Systolic Blood Pressure : 116 mmHg Diastolic Blood Pressure : 64 mmHg NIBP Mean : 81 mmHg BP Location : Left upper extremity Blood Pressure Cuff Size : Large Height : 172 cm(Converted to: 5 ft 8 inch(es), 68 inch(es)) Actual Weight : 108.0 kg(Converted to: 238 lb 2 oz) Dosing Weight Clinic : 108 kg Clinic BSA : 2.27 Body Mass Index : 36.51 kg/m2 VIKTORIA BECKWITH - 09/11/2013 11:33 CDT General Info Languages : Kazakh Is Patient Female and 13-50 no hysterectomy : Yes Status : Patient denies Are you ? : No VIKTORIA BECKWITH - 09/11/2013 11:33 CDT Subjective Pain Symptoms : No VIKTORIA BECKWITH - 09/11/2013 11:33 CDT Dependent Habits Tobacco Use/Currently Using : No Exposure to Tobacco Smoke : Other: never Smoking Status : Never smoker VIKTORIA BECKWITH - 09/11/2013 11:33 CDT Caffeine Use Grid Caffeine Use : Current Type : Chocolate, Coffee, Soft drinks, Tea Frequency : Daily VIKTORIA BECKWITH - 09/11/2013 11:33 CDT Source: [facility] POWERCHART Document Id: [id number] CDT!30 documented in this encounter Plan of Treatment Upcoming Encounters Date Type Specialty Care Team Description 11/09/2021 Office Visit Family Medicine Fadia Merchant M.D. [address] [place] [address] (Wo rk) 11/10/2021 Office Visit Family Medicine Zacarias Sarabia M.B.B.S., M.D. [address] [place] [address] (Wo rk) 11/11/2021 Comprehensive Visit Orthopedic Surgery Ivan Deng M.D. [address] [phone] (Wo rk) documented as of this encounter Visit Diagnoses Not on filedocumented in this encounter Additional Health Concerns Assessment Noted Time PHQ-9 Depression Total Score: 11 09/11/2013 1:22 PM CD T documented as of this encounter
--- OUTSIDE RECORDS SUMMARY | 2021-11-07 19:45 | XMS_ITS | Encounter Summary ---
:1980 Author Organization [facility] Address [address] [place] [address] Care Team Providers Name Role Phone Unassigned, Pcp Primary Care Provider Unavailable Reason for Visit Reason Onset Date Comments change in med 10/07/2017 Encounter Details Date Type Department Care Team Description 10/07/2017 Clinical Communication Department of Family Unassigned , Pcp change in med Medicine, [facility], in [place], [place] [address], [place] [address] Social History Tobacco Use Types Packs/Day Years Used Date Smoking Tobacco: Never Smokeless Tobacco: Never Sex Assigned at Date Recorded Not on file documented as of this encounter Miscellaneous Notes Telephone Encounter - Juliana Schmidt R.N. - 10/07/2017 2:23 PM CDT Per patient request, left message with recommendations. Telephone Encounter - Shreya Dean M.D. - 10/07/2017 2:08 PM CDT Not likely to be related to the medication would recommend continuing on the product and follow-up if the symptoms continues. If she would like to change medication they will need a follow-up appointment. Telephone Encounter - Juliana Schmidt R.N. - 10/07/2017 1:35 PM CDT Patient reports that she took 2 tabs yesterday (100mg) and yesterday she developed symptoms about half hour after taking, and she remains nauseous and has had 4 episodes of diarrhea. She notes that shehas no appetite and feels like she wants to vomiting. She notes that she did not take the medicationtoday. Patient is thinking these symptoms may be related to the increased dose. She would like to know if you think this is due to the increase and what you would recommend. She notes that if Rx is to be changed she requests it be sent to [facility]. She also requests a detailed message be left on her phone if she does not answer when we call back. Telephone Encounter - Leticia Weaver - 10/07/2017 1:02 PM CDT Pt called and is feeling sick, has diarrhea, is nauseated, and doesn't t want to eat, she feels it is from the higher dose of Zoloft. She was on 50 mg and was bumped up to 100 mg. Please call pt and advise documented in this encounter Plan of Treatment Upcoming Encounters Date Type Specialty Care Team Description 11/09/2021 Office Visit Family Medicine Fadia Merchant M.D. [address] [place] [address] (Andrew ramirez) 11/10/2021 Office Visit Family Medicine Zacarias Sarabia M.B.B.S., M.D. [address] [place] [address] (Andrew ramirez) 11/11/2021 Comprehensive Visit Orthopedic Surgery Ivan Deng M.D. [address] [place] [phone] (Andrew ramirez) documented as of this encounter Visit Diagnoses Not on filedocumented in this encounter Additional Health Concerns Assessment Noted Time PHQ-9 Depression Total Score: 7 09/25/2017 6:49 AM CDT documented as of this encounter Care Teams Explosive Operator Bomb Relationship Specialty Start Date End Date Unassigned, Pcp PCP - General Family Medicine 09/23/17 12/13/17 documented as of this encounter
--- OUTSIDE RECORDS SUMMARY | 2021-11-07 19:45 | XMS_ITS | Encounter Summary ---
:1980 Author Organization [facility] Address [address] [place] [address] Care Team Providers Name Role Phone Unavailable Primary Care Provider Unavailable Encounter Details Date Type Department Care Team Description 06/28/2016 Hospital Encounter HX [facility] UROLOGY Kristy Singh APRN, R.N. [address], [place] [address] (Wo rk) Social History Tobacco Use Types Packs/Day Years Used Date Smoking Tobacco: Never Sex Assigned at Date Recorded Not on file documented as of this encounter Last Filed Vital Signs Vital Sign Reading Time Taken Comments Blood Pressure 114/66 06/28/2016 3:06 PM CDT Pulse 98 06/28/2016 3:06 PM CDT Temperature - - Respiratory Rate - - Oxygen Saturation - - Inhaled Oxygen Concentration - - Weight - - Height 172 cm (5' 7.72) 06/28/2016 3:06 PM CDT Body Mass Index - - documented in this encounter Progress Notes Rajani Singh APRN, R.N. - 06/28/2016 3:35 PM CDT Clinic Full Note CHIEF COMPLAINT/REASON FOR VISIT Nocturnal enuresis, urinary urgency and frequency, and follow-up after pelvic floor physical therapy HISTORY OF PRESENT ILLNESS Narinder is a pleasant 35-year-old female here today for a recheck of her nocturnal enuresis, urinary urgency and frequency, and pelvic floor physical therapy. She has been seeing Dileep at we were Physical therapy for pelvic floor physical therapy. She has been doing very well with this and has had exc ellent results. She has been dry most nights and usually only has nocturnal enuresis once a week at most. She has not been taking her oxybutynin for approximately 1 month as it gave her an extremely dry mouth. She is extremely happy with how things are going right now and wishes to continue with pelvic floor physical therapy. MEDICATIONS oxybutynin 15 mg/24 hr oral tablet, extended release, 15 mg, 1 tab(s), PO, Daily, 1 refills, * Multivitamins oral tablet, 1 tab(s), PO, Daily * indicates non-compliance ALLERGIES NKA PAST MEDICAL [...] HISTORY section (07/30/2013). SOCIAL HISTORY Date Time: 06/28/2016 15:06 Tobacco: Smoking Status: Never smoker Exposure: Other: never Alcohol: Use: No Recreational Drugs: Use: No Results Found Type: No Results Found FAMILY HISTORY Father:Positive: Hypertension SYSTEMS REVIEW Negative except for stated above VITAL SIGNS T: 36.1 ??C (Core) HR: 98 BP: 114 / 66 HT: 172 cm PHYSICAL EXAMINATION General: Well [...] non-distended Extremities: Warm, without edema or ulcerations. IMPRESSION/REPORT/PLAN Enuresis Nocturnal Sleep Ordered: OV Est Pt Level 3 - [address]63 - 15 min Incontinence Pain Pelvic Female Urinary Urgency At this time common is seen is doing quite well. She went from having nightly nocturnal enuresis tohaving dry nights almost every night. She has not been on medications for over a month and has been doing her pelvic floor physical therapy exercises regularly. At this time she is extremely comfortable with not having any medication for this. If her symptoms worsen or if she needs anything further she will contact me, otherwise I will see her again in the Urology Clinic on an as-needed basis. The patient is in agreement this plan. Electronically Signed By: RAJANI SINGH APRN, RN On: 06/28/2016 03:54 PM Source: [facility] POWERCHART Document Id: [id number] documented in this encounter Miscellaneous Notes Miscellaneous - Rajani Singh APRN, REliseoN. - 06/28/2016 3:35 PM CDT Ambulatory Patient Summary [address] [id number] Visit Information Name: NARINDER LUCAS [facility] Number: [id number] Current Date: 06/28/2016 15:35:52 Physicians Attending Provider: RAJANI SINGH APRN, RN Primary Care Provider: PCP, NARINDER LOUIE has [...] a day Stop Taking the Following Medications: oxybutynin (oxybutynin 15 mg/24 hr oral tablet, extended release) Medication list as of 06-28-16 15:35 Attention: If you have any medications at [...] Signed By: RAJANI SINGH APRN, RN Signed On:28-JUN-2016 15:35:49 Your Allergies & Intolerances Substance Reaction Symptoms [...] BMI 45-49 posted on 03/02 at 10:28 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 Apnea Sleep Obstructive (CAMRYN) Active Your Upcoming [...] if you dont have one. Go to [email or web address] and click on Create Your Account. Then, follow the directions to complete the online form. Youll be asked for your [facility] number which you can find at the top of this document. Your Goals/Additional instructions: Source: [facility] POWERCHART Document Id: [id number] Miscellaneous - Rajani Singh APRN, R.N. - 06/28/2016 3:35 PM CDT Ambulatory Discharge Medication List [address] [id number] Visit Information Name: TRAVISNARINDER [facility] Number: [id number] Current Date: 06/28/2016 15:35:51 Attending Provider: RAJANI SINGH APRN, rehab assistant Provider: PCP, NARINDER LOUIE has been given [...] a day Stop Taking the Following Medications: oxybutynin (oxybutynin 15 mg/24 hr oral tablet, extended release) Medication list as of 06-28-16 15:35 Attention: If you have any medications at [...] Signed By: RAJANI SINGH APRN, RN Signed On:28-JUN-2016 15:35:49 Additional Information: Source: [facility] POWERCHART Document Id: [id number] Miscellaneous - Adriana Chase L.P.N. 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 Entered On: 06/28/2016 15:09 CDT Performed On: 06/28/2016 15:06 CDT by ADRIANA CHASE LPN Intake Chief Complaint : recheck oxybutynin-patient states the medication didn't do anything and gave her dry mouth haven't taken medication in over a month Temperature Core : 36.1 DegC(Converted to: 97.0 DegF) (LOW) Peripheral Pulse Rate : 98 /min Systolic Blood Pressure : 114 mmHg Diastolic Blood Pressure : 66 mmHg NIBP Mean : 82 mmHg BP Location : Right upper extremity Blood Pressure Cuff Size : Large Height : 172 cm(Converted to: 5 ft 8 inch(es), 68 inch(es)) ADRIANA CHASE [facility] - 06/28/2016 15:06 CDT General Info Information Given By : Patient Preferred Communication Mode : Verbal Languages : Fijian Is Patient Female and 13-50 no hysterectomy : Yes Status : Patient denies Are you ? : No ADRIANA CHASE [facility] - 06/28/2016 15:06 CDT Subjective Pain Symptoms : No ADRIANA CHASE [facility] - 06/28/2016 15:06 CDT Dependent Habits Exposure to Tobacco Smoke : Other: never Smoking Status : Never smoker Tobacco 2A : No Tobacco Use/Currently Using : No Tobacco Use/Last 30 Days : No Tobacco Use/Last 12 months : No Alcohol Use : No ADRIANA CHASE [facility] - 06/28/2016 15:06 CDT Caffeine Use Grid Caffeine Use : Current Type : Coffee Frequency : Occasionally Amount : occ. 1-2x/week 1 c. coffee ADRIANA CHASE [facility] - 06/28/2016 15:06 CDT Source: [employer] Document Id: [id number] CDT!34 documented in this encounter Plan of Treatment Upcoming Encounters Date Type Specialty Care Team Description 11/09/2021 Office Visit Family Medicine Fadia Merchant M.D. [address] [place] [address] (Wo rk) 11/10/2021 Office Visit Family Medicine Zacarias Sarabia M.B.B.S., M.D. [address] [place] [address] (Wo rk) 11/11/2021 Comprehensive Visit Orthopedic Surgery Ivan Deng M.D. [address] [place], [place] [phone] (Wo rk) documented as of this encounter Visit Diagnoses Not on filedocumented in this encounter Additional Health Concerns Assessment Noted Time PHQ-9 Depression Total Score: 3 11/10/2015 2:04 PM CDT documented as of this encounter
--- OUTSIDE RECORDS SUMMARY | 2021-11-07 19:45 | XMS_ITS | Encounter Summary ---
:1980 Author Organization [facility] Address [address] [place] [address] Care Team Providers Name Role Phone Unassigned, Pcp Primary Care Provider Unavailable Encounter Details Date Type Department Care Team Description 12/06/2017 Clinical Support Department of Nutrition Ignacia Michaud M.D., M.P.H. [address] [address] No Show in [facility] Sharita Sánchez RDN, [place] [address] [place] [address] [address] [phone] Social History Tobacco Use Types Packs/Day Years Used Date Smoking Tobacco: Never Smokeless Tobacco: Never Sex Assigned at Date Recorded Not on file documented as of this encounter Progress Notes Sharita Sánchez RDN, LD - 12/06/2017 8:00 AM CDT Patient did not show up for dietitian appointment. Will follow up per patient preference. cc: Victorina Michaud MD documented in this encounter Plan of Treatment Upcoming Encounters Date Type Specialty Care Team Description 11/09/2021 Office Visit Family Medicine Fadia Merchant M.D. [address] [place] [phone] (Wo rk) 11/10/2021 Office Visit Family Medicine Zacarias Sarabia M.B.B.S., M.D. [address] [place] [phone] (Wo rk) 11/11/2021 Comprehensive Visit Orthopedic Surgery Ivan Deng M.D. [address] [place] [address] [phone] (Andrew rk) documented as of this encounter Visit Diagnoses Not on filedocumented in this encounter Additional Health Concerns Assessment Noted Time PHQ-9 Depression Total Score: 7 09/25/2017 6:49 AM CDT documented as of this encounter Care Teams Clinical Services Assistant Relationship Specialty Start Date End Date Unassigned, Pcp PCP - General Family Medicine 09/23/17 12/13/17 documented as of this encounter
--- OUTSIDE RECORDS SUMMARY | 2021-11-07 19:45 | XMS_ITS | Encounter Summary ---
:1980 Author Organization [facility] Address [address] [place] [address] Care Team Providers Name Role Phone Unassigned, Pcp Primary Care Provider Unavailable Reason for Visit Outpatient (Routine) - Closed Specialty Diagnoses / Procedures Referred By Contact Refer red To Contact Diagnoses Sleep Apnea Ignacia Michaud M.D., [facility] Procedures Polysomnography (PSG): Split Night (STANDARD) M.P.H. [address] [place] [phone] Referral ID Status Reason Start Date Expiration Date Visits Requ ested Visits Authorized [id number] Closed 11/04/2017 11/04/2018 1 1 Encounter Details Date Type Department Care Team Description 12/12/2017 Diagnostic Department of Sleep Medicine Ignacia Michaud M.D., Sleep Apnea in [facility] M.P.[facility]. [address] [place] [address] [place], [place] [phone] (Andrew ramirez) Social History Tobacco Use Types Packs/Day Years Used Date Smoking Tobacco: Never Smokeless Tobacco: Never Sex Assigned at Date Recorded Not on file documented as of this encounter Plan of Treatment Upcoming Encounters Date Type Specialty Care Team Description 11/09/2021 Office Visit Family Medicine Fadia Merchant M.D. [address] [place] [phone] (Andrew ramirez) 11/10/2021 Office Visit Family Medicine Zacarias Sarabia M.B.B.S., M.D. [address] [facility] MARIBETH Slaughter [phone] (Wo rk) 11/11/2021 Comprehensive Visit Orthopedic Surgery Ivan Deng M.D. [address] [facility] [place] [phone] (Wo rk) documented as of this encounter Procedures Procedure Name Priority Date/Time Associated Diagnosis Comme nts POLYSOMNOGRAPHY Routine 12/13/2017 7:18 AM Sleep Apnea Result s for this LATEX SPOOLER procedure are i n the results section. documented in this encounter Results Polysomnography (PSG): Split Night (STANDARD) (12/13/2017 7:18 AM LATEX SPOOLER) Specimen (Source) Anatomical Location Collection Method / Collectio n Time Received Time / Laterality Volume Narrative MMODAL - 12/22/2017 6:55 AM LATEX SPOOLER SLEEP STUDY REPORT This routine split night polysomnogram w as performed ??using the standard diagnostic protocol outlined by the [facility] Academy of Sleep Medicine . This included 6 channels of EEG, 2 chann els of EOG, chin EMG, bilateral anterior tibialis EMG, nasal/oral thermi ster, PTAF (nasal pressure transducer), chest and abdominal wall mo vements, EKG rhythm strip, and pulse oximetry. The study was scored based upon recomme nded [place] [employer] scoring guidelines in [...] documented in this encounter Visit Diagnoses Diagnosis Sleep Apnea Pain Knee Left - Primary documented in this encounter Additional Health Concerns Assessment Noted Time PHQ-9 Depression Total Score: 7 09/25/2017 6:49 AM CDT documented as of this encounter Care Teams Certified Endoscopy Technician Relationship Specialty Start Date End Date Unassigned, Pcp PCP - General Family Medicine 09/23/17 12/13/17 documented as of this encounter
--- OUTSIDE RECORDS SUMMARY | 2021-11-07 19:45 | XMS_ITS | Encounter Summary ---
:1980 Author Organization [facility] Address [address] [place] [address] Care Team Providers Name Role Phone Shreya Dean M.D. Primary Care Provider Encounter Details Date Type Department Care Team Description 12/23/2017 Clinical Communication Department of Kimberly Núñez MedicineLashanda M.D. [facility], in [address] [address] [place], [place] [phone] (Work) [phone] Social History Tobacco Use Types Packs/Day Years Used Date Smoking Tobacco: Never Smokeless Tobacco: Never Sex Assigned at Date Recorded Not on file documented as of this encounter Plan of Treatment Upcoming Encounters Date Type Specialty Care Team Description 11/09/2021 Office Visit Family Medicine Fadia Merchant M.D. [address] [place] [phone] (Wo rk) 11/10/2021 Office Visit Family Medicine Zacarias Sarabia M.B.B.S., M.D. [address] [place] [phone] (Wo rk) 11/11/2021 Comprehensive Visit Orthopedic Surgery Ivan Deng M.D. [address] [place] [phone] (Wo rk) documented as of this encounter Visit Diagnoses Not on filedocumented in this encounter Additional Health Concerns Assessment Noted Time PHQ-9 Depression Total Score: 7 09/25/2017 6:49 AM CDT documented as of this encounter Care Teams Hazardous Materials Waste Technician Relationship Specialty Start Date End Date Shreya Dean M.D. PCP - General Family Medicine 12/14/17 01/07/19 documented as of this encounter
--- OUTSIDE RECORDS SUMMARY | 2021-11-07 19:45 | XMS_ITS | Encounter Summary ---
:1980 Author Organization [facility] Address [address] [place] [address] Care Team Providers Name Role Phone Unassigned, Pcp Primary Care Provider Unavailable Reason for Visit Outpatient (Routine) - Closed Specialty Diagnoses / Procedures Referred By Contact Refer red To Contact Nutrition Diagnoses Sleep Apnea Morbid Obesity Body Mass Index 50.0-59.9 Adult (HCC) Ignacia Michaud M.D., [facility] M[facility]P.[facility] [address] [place] [phone] Referral ID Status Reason Start Date Expiration Date Visits Requ ested Visits Authorized [id number] Closed 11/04/2017 11/04/2018 1 1 Encounter Details Date Type Department Care Team Description 12/13/2017 Clinical Support Department of Ignacia Michaud M.D., M.P.H. [address] [phone] Sleep Apnea; Nutrition in Sharita Sánchez, RDN, LD [address] [place] [phone] Morbid Obesity Body Mass Index 50.0-59.9 Adult ([facility]) [place], [place] [address] [phone] Social History Tobacco Use Types [...] Weight 150 kg (331 lb 2.1 oz) 12/14/2017 2:34 PM EMBLEM DRAWER IN Height 169 cm (5' 6.54) 12/14/2017 2:34 PM EMBLEM DRAWER IN Body Mass Index 52.59 12/14/2017 2:34 PM EMBLEM DRAWER IN documented in this encounter Patient Instructions Patient InstructionsSharita Sánchez RDN, LD - 12/13/2017 11:00 AM EMBLEM DRAWER IN 1.) Will try soymilk as milk alternative 2.) EM DRAWER IN documented in this encounter Progress Notes Sharita Sánchez RDN, LD - 12/13/2017 11:00 AM CST REASON FOR VISIT: Medical nutrition therapy initial visit for obesity. Referred by: Ignacia Michaud M.D., M.P.H. PRESENT FOR VISIT: Patient was seen today for nutrition education related to obesity and desire to lose weight. NUTRITION ASSESSMENT: Patient reports she wants to lose weight however she reports regardless of what she does she can't lose weight. She reports she is exhausted all the time and has no energy to cook or make meals. She reports she wakes up fatigued. She reports she typically skips breakfast due to lack of energy. 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 She reports she has severe insomnia and frequently eats a second dinner meal around 12:30 am-2 a.m.. Typical meal pattern/daily food intake: per patient report Breakfast: often skips, will eat leftovers if too tired to cook or toast AM Snack: water Lunch: rice or pasta with sauce and meat or if no energy eats fast-food PM Snack: apple or banana but avoids due to too high in sugar Supper: leftovers from lunch or on occasion cooks which is pasta, rice with meat Bedtime Snack: eats 12:30 am, whatever is available, chips, crackers, leftovers from supper, etc Supplements: none Beverages: water, 1-2 cups of coffee per week but must have sugar added to taste sweet or tea with milk and sugar added along with spices. Does drink pop 1-2 per week for caffeine purposes. Alcohol use: none Restaurant dining: frequently due to lack of energy Additional information pertinent to visit: she reports she may eat fruit once a day a few days per week. She adds vegetables to the foods she makes/prepares but states her family members don't like them and often won't eat them if she cooks them by themselves. She states her depression is difficult inmanaging her sleep and eating behavior also. She frequently reports she will sit down to watch TV orplay on her phone and then realize she ate an entire container of crackers or chips or cookies or a large container of leftovers. She reports she often notices she is eating and she isn't hungry or doesn't feel full after eating excessive amounts and states she often doesn't even taste the foods she eats when it's done mindlessly. Physical Activity: ADL's and housework only when she has energy. ANTHROPOMETRICS Height: 169 cm Weight: (!) 150.2 kg BMI (Calculated): 52.6 kg/m?? PERTINENT LABS: none SOCIAL HISTORY: Living arrangement: Lives with family. Learning barriers: none NUTRITION DIAGNOSIS: Excessive Energy Intake related to irregular eating pattern/schedule, eating for non-hunger related reasons, large portions as evidenced by patient reported intake and current BMI: 52.59 kg/m2 NUTRITION INTERVENTION: Interventions: Nutrition counseling, Nutrition education RD noted the value of mindful eating techniques and the importance of listening/honoring hunger and satiety cues. RD explored the patient's cues for hunger and satiety, and their mealtime practices. RDsuggested slowing the pace of meals, and savoring the appearance, smell, taste, texture and flavors of food to promote mindful eating. Lastly, RD helped identify reasons for overeating and provided strategies/alternatives for ways to use food as nourishment rather than a way to pacify emotions. Discussed the biggest obstacle which is her lack of energy due to poor sleep and chronic fatigue which is affecting her life in many ways. Discussed the importance of following up with her recent over-night sleep study and need for CPAP machine. Discussed role sleep plays in weight management. Also discussedeffect skipping meals has on weight and metabolism and importance of regular meals. Also discussed concerns regarding her binge eating behavior in the evening is likely a result of her irregular eatingpattern earlier in the day. Reviewed strategies to keep her mind engaged which are not food related.Also talked about need for better hydration status and needing to drink more water, ideally at least90 oz per day. Education materials provided: Eat well using My [employer] NUTRITION PLAN: educated patient on weight management and importance of mindful eating to address binge eating behaviors. MONITORING AND EVALUATION: Nutrition Indicator Indicator/Desired Outcome: Establish regular meal pattern Indicator 2/Desired Outcome: 7-10% weight loss Patient Goal(s): 1. Try soymilk versus cow milk due to concern for lactose intolerance 2. Try alternative coping mechanism/distraction when up at 12:30 a.m. Including reading books, doingcrossword puzzle, walking around house, listening to music (non food related), drink 8 oz water and if going to eat choose fruit and/or vegetable 3. Follow-up with over-night sleep study results 4. Walk 10 minutes daily 5. Switch sugar to stevia/splenda versus regular sugar in tea, coffee, cooking, etc FOLLOW UP PLAN: 1. Patient is provided with contact information and encouraged to call with questions or concerns. 2. Encouraged patient to follow up in 1 month. Time spent with patient (minutes): 60 Minutes EM DRAWER IN documented in this encounter Plan of Treatment Upcoming Encounters Date Type Specialty Care Team Description 11/09/2021 Office Visit Family Medicine Fadia Merchant M.D. [address] [place] [phone] (Andrew ramirez) 11/10/2021 Office Visit Family Medicine Zacarias Sarabia M.B.B.S., M.D. [address] [place] [phone] (Andrew ramirez) 11/11/2021 Comprehensive Visit Orthopedic Surgery Ivan Deng M.D. [address] [place] [phone] (Wo rk) documented as of this encounter Visit Diagnoses Diagnosis Sleep Apnea Morbid Obesity Body Mass Index 50.0-59.9 Adult (HCC) Pain Knee Left - Primary documented in this encounter Additional Health Concerns Assessment Noted Time PHQ-9 Depression Total Score: 7 09/25/2017 6:49 AM CDT documented as of this encounter Care Teams Assembler Dc Field Yoke Relationship Specialty Start Date End Date Unassigned, Pcp PCP - General Family Medicine 09/23/17 12/13/17 documented as of this encounter
--- OUTSIDE RECORDS SUMMARY | 2021-11-07 19:45 | XMS_ITS | Encounter Summary ---
:1980 Author Organization [facility] Address [address] [place] [address] Care Team Providers Name Role Phone Unavailable Primary Care Provider Unavailable Encounter Details Date Type Department Care Team Description 10/14/2015 Hospital Encounter HX [facility] OBTony Carrillo M.D. [address] [place], [place] [phone] (Wo rk) Social History Tobacco Use Types Packs/Day Years Used Date Smoking Tobacco: Never Assessed Sex Assigned at Date Recorded Not on file documented as of this encounter Last Filed Vital Signs Vital Sign Reading Time Taken Comments Blood Pressure 102/68 10/14/2015 8:56 AM CDT Pulse - - Temperature - - Respiratory Rate - - Oxygen Saturation - - Inhaled Oxygen Concentration - - Weight 129 kg (284 lb 15.1 oz) 10/14/2015 8:56 AM CDT Height 172 cm (5' 7.72) 10/14/2015 8:56 AM CDT Body Mass Index 43.69 10/14/2015 8:56 AM CDT documented in this encounter Progress Notes Katy Landaverde M.D. - 10/14/2015 8:35 AM CDT [id number] CHIEF COMPLAINT/REASON FOR VISIT Followup of urinary symptoms, low abdominal pain, low back pain and irregular menses with infertility. HISTORY OF PRESENT ILLNESS Narinder is a 34-year-old para 1-0-0-1 female who presented for evaluation of urinary symptoms along with low abdominal and low back pain, irregular menses, and concerns about infertility back in June of 2015. She reported burning with urination back at that time. She has also reported increasing nocturiagetting up about 5 times overnight to urinate and sometimes on having incontinence at that time. Shedenied urinary frequency during the day. Urinalysis was performed back at that time and returned completely normal other than a bit of an elevated specific gravity. She reports that since then she was started on desmopressin by Dr. Iniguez. She reports no improvement in her nocturnal enuresis with this.She also had complained of low back pain at that time that I felt was musculoskeletal in nature. Shabbir seen physical therapy and reports that this has improved significantly to the point where it is essentially resolved. She is done with physical therapy now. She had also had some yeast infections below the breasts and in the groin folds and this has resolved with the antifungal cream that I gave her. Finally, at that time she had described irregular menses with long cycles ranging from 50 to 54 days. She had reported significant weight gain since her baby was born in July of 2013. I sent her to a pharmacy manager and she reports that did not help a whole lot. But she has been doing [employer] and has lost about 11 or 12 pounds with that. She does want to lose more weight and would like something that would help her to lose weight more quickly. In order to evaluate her irregular menses I had ordered a TSH and prolactin which returned normal. Her testosterone studies and sex hormone binding globulin all returned normal as well. We had tried to check a Day 21 progesterone level and that was not ovulatory so she was given a course of Provera. She reports not bleeding until 17 to 20 days after the Provera and when she bled she only bled for 3 days. We did check a Day 3 FSH and estradiol which returned normal. Also hemoglobin A1c had been checked back in June and that returned normal as well. MEDICATIONS See medication list updated in EMR today. ALLERGIES See allergy list updated in EMR today please insert. SYSTEMS REVIEW GENERAL: Positive for weight gain. No fevers, chills, fatigue, unintentional weight loss. HEENT: No changes in vision or hearing, no sore throat or nasal congestion. CARDIOVASCULAR: No chest pain, irregular heartbeat or racing heart. RESPIRATORY: No shortness of breath, cough or wheeze. GASTROINTESTINAL: No nausea, vomiting, diarrhea, constipation or abdominal pain. GENITOURINARY: Positive for leaking urine. No pain or burning with urination, no irregular vaginal bleeding, heavy periods, painful periods, abnormal vaginal discharge, leaking stool or gas. SKIN: No rashes or skin lesions. BREASTS: No masses or lumps, no discharge from the nipples. NEUROLOGIC: No difficulty with memory, numbness, tingling, falls. PSYCHIATRIC: Positive for difficulty sleeping. No anxiety, depression. ENDOCRINE: Positive for hair loss. No heat intolerance, cold intolerance, excessive thirst. VITAL SIGNS See results review section in the EMR. PHYSICAL EXAMINATION General: Well-nourished female in no acute distress. IMPRESSION/REPORT/PLAN A 34-year-old female who presents today for followup of multiple complaints. 1. Low back pain: This has resolved with physical therapy. 2. Weight gain with obesity: The patient has lost weight with [employer]. However, she would like tolose more weight more quickly. She is interested in possibly pursuing bariatric surgery. A referral was sent to [facility] in [place] for this. 3. Oligomenorrhea: Her cycles are 50 to 54 days in length. TSH and prolactin are normal. She has no evidence of hyperandrogenism either symptomatically or biochemical evidence of this. Therefore she does not really meet criteria for PCOS but she does have oligo-ovulation as Day 21 and Day 28 progesterone levels were not ovulatory. Day 3 labs were normal. At this point, she would like to conceive so we are going to treat her with cyclic progesterone. If she goes for more than 35 days without a periodshe will call and we will give her another course of Provera. She did bleed after the last course ofProvera. I have encouraged her to continue to try to lose weight and hopefully this will help with her irregular menses. We did discuss that if she would like to try to pursue fertility she needs to have a BMI of less than 40 and currently her BMI continues to be in the 40s. Prior to proceeding with infertility treatment we would also need to obtain an AMH and a semen analysis. 4. Yeast infections: These have resolved with the topical antifungal. 5. Nocturnal enuresis and urinary frequency and urgency: I have advised the patient to stop the desmopressin since she is not getting any relief with that. I am going to treat her for incontinence since urinalysis has been negative in the past. I am going to treat her with Detrol LA. She is advised onside effects of this including dry mouth and constipation. 6. Followup: Three months. Twenty minutes of this 25-minute visit were spent in counseling the patient.. Katy Landaverde M.D./scott Electronically Signed By: KATY LANDAVERDE MD On: 10/16/2015 05:32 PM Source: [facility] MHSDOLBEYNONRADSYS Document Id: [id number] documented in this encounter Miscellaneous Notes Telephone Encounter - Conversion, Historical Provider Ser - 11/18/2015 12:58 PM CDT *Phone Message/balaji Document Contains Addenda Addendum by FRANCINE CARTY LPN on November 20, 2015 11:13:31 CDT From: FRANCINE CARTY LPN ( Obstetrics/Gynecology Nurse) To: FRANCINE CARTY LPN; Sent: 11/20/2015 11:13:31 CDT Subject: FW: *Phone Message/balaji Addendum by KATY LANDAVERDE MD on November 18, 2015 19:17:55 CDT From: KATY LANDAVERDE MD To: Obstetrics/Gynecology Nurse; Sent: 11/18/2015 19:17:55 CDT Subject: RE: *Phone Message/balaji Please contact the bariatric surgery clinic in [place] to find out what the name of the 12 week weight loss therapy program is that they require prior to bariatric surgery. Then, please call the therapists on my list and see if you can identify any of them that offer this program. If we find anyone,we need to let Narinder know. Addendum by PARUL WILHELM LPN on November 18, 2015 16:56:45 CDT From: PARUL WILHELM LPN ( Obstetrics/Gynecology Nurse) To: KATY LANDAVERDE MD; Sent: 11/18/2015 16:56:45 CDT Subject: FW: *Phone Message/balaji From: LVI DAN To: Obstetrics/Gynecology Nurse; Sent: 11/18/2015 12:58:04 CDT Subject: *Phone Message/balaji Caller is: ( x) Patient ( ) Mother ( ) Father ( ) Spouse ( ) Daughter ( ) Son ( ) Pharmacy ( ) Other: Physician: Patient MRN #: Reason for Call: Message: Patient called in saying she was referred by Dr. Landaverde to [place] for weight loss surgery. When there and was referred to see a weight therapist. Patient is wanting to talk to you aboutthis and where she might be able to go locally. Please call her back at [phone]. Thanks! Advice/Action: Source used: ( ) Verbalizes understanding [...] back cell phone number ( ) Source: [facility] POWERCHART Document Id: [id number] Miscellaneous - Katy Landaverde M.D. - 10/14/2015 6:04 PM CDT Ambulatory Discharge Medication List [address] [id number] Visit Information Name: TRAVIS NARINDERNIVIA [place] [facility] Number: [id number] Visit Date: 10/14/2015 18:04:49 Attending Provider: KATY LANDAVERDE MD Primary Care Provider: PCP, ELSEWHERE NARINDER LUCAS has been [...] 1 Tablet(s), Oral, once a day tolterodine (Detrol LA 4 mg oral capsule, extended release) 1 cap, Oral, once a day New Routed to [address] [id number] Stop Taking the Following Medications: medroxyPROGESTERone (Provera 10 mg oral tablet) Medication list as of 10-14-15 18:04 Attention: If you have any medications at [...] Electronically Signed By: KATY LANDAVERDE MD Signed On:14-OCT-2015 18:04:48 Additional Information: Source: [facility] POWERCHART Document Id: [id number] Miscellaneous - Katy Landaverde M.D. - 10/14/2015 6:04 PM CDT Ambulatory Patient Summary [address] [id number] Visit Information Name: NARINDER LUCAS [facility] Number: [id number] Current Date: 10/14/2015 18:04:50 Physicians Attending Provider: KATY LANDAVERDE MD Primary Care Provider: PCP, ELSEWHERE NARINDER LUCAS has been [...] 1 Tablet(s), Oral, once a day tolterodine (Detrol LA 4 mg oral capsule, extended release) 1 cap, Oral, once a day New Routed to [place] [address] [place], [place] [phone] Stop Taking the Following Medications: medroxyPROGESTERone (Provera 10 mg oral tablet) Medication list as of 10-14-15 18:04 Attention: If you have any medications at [...] Electronically Signed By: KATY LANDAVERDE MD Signed On:14-OCT-2015 18:04:48 Your Allergies & Intolerances Substance Reaction Symptoms [...] Your Upcoming Appointments Date Time Location Provider 01/13/2016 15:30 [facility] PHYSICIAN CODING SPECIALIST Katy Landaverde MD Attention: Contact your local Clinic if [...] you dont have one. Go to [email or web address] and click on Create Your Account. Then, follow the directions to complete the online form. Youll be asked for your [facility] number which you can find at the top of this document. Your Goals/Additional instructions: Source: [facility] POWERCHART Document Id: [id number] Miscellaneous - Socorro Lopez L.P.N. - 10/14/2015 8:56 AM CDT Adult Engineer/Conductor Intake/History Adult Engineer/Conductor Intake/History Entered On: 10/14/2015 9:01 CDT Performed On: 10/14/2015 8:56 CDT by SOCORRO LOPEZ LPN Intake Chief Complaint : follow up on results LMP Date : 09-23-2015 Systolic Blood Pressure : 102 mmHg Diastolic Blood Pressure : 68 mmHg NIBP Mean : 79 mmHg Height : 172 cm(Converted to: 5 ft 8 inch(es), 68 inch(es)) Actual Weight : 129.25 kg(Converted to: 284 lb 15 oz) Dosing Weight Clinic : 129.25 kg Clinic BSA : 2.49 Body Mass Index : 43.69 kg/m2 SOCORRO LOPEZ LPN - 10/14/2015 8:56 CDT General Info Information Given By : Patient Languages : Palestinian Is Patient Female and 13-50 no hysterectomy : Yes Status : Patient denies Are you ? : No SOCORRO LOPEZ LPN - 10/14/2015 8:56 CDT Subjective Pain Symptoms : No SOCORRO LOPEZ LPN - 10/14/2015 8:56 CDT Dependent Habits Exposure to Tobacco Smoke : Other: never Smoking Status : Never smoker Tobacco 2A : No Tobacco Use/Currently Using : No Tobacco Use/Last 30 Days : No Tobacco Use/Last 12 months : No SOCORRO LOPEZ LPN - 10/14/2015 8:56 CDT Caffeine Use Grid Caffeine Use : Current Type : Coffee Frequency : Occasionally Amount : occ. 1-2x/week 1 c. coffee SOCORRO LOPEZ LPN - 10/14/2015 8:56 CDT Source: [facility] POWERCHART Document Id: [id number] CDT!33 documented in this encounter Plan of Treatment Upcoming Encounters Date Type Specialty Care Team Description 11/09/2021 Office Visit Family Medicine Fadia Merchant M.D. [address] [place] [address] (Wo rk) 11/10/2021 Office Visit Family Medicine Zacarias Sarabia M.B.B.S., M.D. [address] [place] [address] (Wo rk) 11/11/2021 Comprehensive Visit Orthopedic Surgery Ivan Deng M.D. [address], [place] [phone] (Wo rk) documented as of this encounter Visit Diagnoses Not on filedocumented in this encounter Additional Health Concerns Assessment Noted Time PHQ-9 Depression Total Score: 11 09/11/2013 1:22 PM CD T documented as of this encounter
--- OUTSIDE RECORDS SUMMARY | 2021-11-07 19:45 | XMS_ITS | Encounter Summary ---
:1980 Author Organization [facility] Address [address] [place] [address] Care Team Providers Name Role Phone Unavailable Primary Care Provider Unavailable Encounter Details Date Type Department Care Team Description 10/29/2016 Hospital Encounter HX [facility] Rajani Singh APRN, R.N. [address] [place], [place] [phone] (Wo rk) Social History [...] - - Height 172 cm (5' 7.72) 10/29/2016 11:08 AM CDT Body Mass Index - - documented in this encounter Miscellaneous Notes Miscellaneous - Rajani Singh APRN, R.N. - 11/01/2016 8:17 AM CDT Results Notification Document Contains Addenda Addendum by ISAC CHASE LPN on November 01, 2016 09:44:47 CDT Patient aware to waste picker her antibiotics. From: RAJANI SINGH APRN, RN To: Urology Nurse; Sent: 11/01/2016 08:17:11 CDT ! Show up: 11/01/2016 08:17:11 CDT Subject: Results Notification Actions: Notify patient of results Reminder Comments: uc positive, antibiotics ordered Results: Date Result Type Ind Result Name MBO POS Culture Urine Source: [facility] POWERCHART Document Id: [id number] documented in this encounter Plan of Treatment Upcoming Encounters Date Type Specialty Care Team Description 11/09/2021 Office Visit Family Medicine Fadia Merchant M.D. [address] [place] [address] (Wo rk) 11/10/2021 Office Visit Family Medicine Zacarias Sarabia M.B.B.S., M.D. [address] [place] [address] (Wo rk) 11/11/2021 Comprehensive Visit Orthopedic Surgery Ivan Deng M.D. [address] [place], [place] [phone] (Wo rk) documented as of this encounter Procedures Procedure Name Priority Date/Time Associated Comments Diagnosis URINALYSIS WITH Routine 10/29/2016 11:16 Results for this MICROSCOPIC AM CDT procedure are i n the results section. BACTERIAL CULTURE, Routine 10/29/2016 11:16 Resul ts for this AEROBIC, URINE AM CDT procedure are in the results section. documented in this encounter Results (ABNORMAL) Bacterial Culture, Aerobic, Urine (10/29/2016 11:16 AM CDT) Analysis Performed At Patho logist Time Signature Bacterial EC >=32 POWERCHART Culture, (POSITIVE) Aerobic, Urine HXPre EC POWERCHART Comment: >100,000 cfu/mL Escherichia coli with Mi xed brigitte (multiple species present) Susceptibility to follow. HXFinal EC POWERCHART Comment: >100,000 cfu/mL Escherichia coli with Mixed brigitte (multiple species prese nt) Specimen (Source) Anatomical Collection Method Collection Time Re ceived Time Location / / Volume Laterality Urine, First 10/29/2016 11:16 Voided AM CDT Organism Antibiotic Method Susceptibility Escherichia coli [...] Sulfamethoxazole (MCG/ML) Escherichia coli Tobramycin SUSCEPTIBILITY, AQUILES 8: Intermed iate (MCG/ML) Rajani Singh APRN RNeha LAB MICROBIOLOGY - GENERA L ORDERABLES Performing Organization Address City/State/ZIP Code Phon e Number POWERCHART POWERCHART NA (ABNORMAL) Urinalysis, Complete, Includes Microscopic (10/29/2016 11:16 AM CDT) P athologist Signature Clarity Clear Clear POWERCHART HXUr Color Yellow Colorless POWERCHART Specific 1.020 POWERCHART [place], POCT, U Comment: Reference Range Specific [place]: 1.000-1.035 pH, POCT, Urine 6.5 <5.0 POWERCHART Comment: Reference Range pH: 5.0-8.0 Protein, Ur, Dip Negative Negative MGDL POWERCHAR T Glucose Negative Negative MGDL POWERCHART Ketones, QL(U) Negative Negative MGDL POWERCHART HXBILIRUBIN Negative Negative POWERCHART HXBLOOD Negative Negative POWERCHART Leukocyte Esterase Negative Negative POWERCHART HXNITRITE Negative Negative POWERCHART Urobilinogen 0.2 0.2 MGDL POWERCHART Comment: Reference Range Urobilinogen: 0.2-1.0 mg/dL HXUR WBC. Occ-3 None Seen HPF POWERCHART HXUR RBC. Occ-2 None Seen HPF POWERCHART Squamous Epithelial 11-20 (A) None Seen HPF POWERC [place] HXUR Bacteria, None Seen None Seen POWERCHART Specimen (Source) Anatomical Collection Method Collection Time Re ceived Time Location / / Volume Laterality Urine, First 10/29/2016 11:16 Voided AM CDT Rajani Singh APRN, REliseoNEliseo LAB URINE ORDERABLES Performing Organization Address City/State/ZIP Code Phon e Number POWERCHART POWERCHART NA documented in this encounter Visit Diagnoses Not on filedocumented in this encounter Additional Health Concerns Assessment Noted Time PHQ-9 Depression Total Score: 3 11/10/2015 2:04 PM CDT documented as of this encounter
--- OUTSIDE RECORDS SUMMARY | 2021-11-07 19:46 | XMS_ITS | Encounter Summary ---
:1980 Author Organization [facility] Address [address] [place] [address] Care Team Providers Name Role Phone Unavailable Primary Care Provider Unavailable Encounter Details Date Type Department Care Team Description 04/30/2013 Hospital Encounter HX NO MAPPING Babak Soto M.D. Social History Tobacco Use Types Packs/Day Years Used Date Smoking Tobacco: Never Assessed Sex Assigned at Date Recorded Not on file documented as of this encounter Plan of Treatment Upcoming Encounters Date Type Specialty Care Team Description 11/09/2021 Office Visit Family Medicine Fadia Merchant M.D. [address] [place] [address] (Wo rk) 11/10/2021 Office Visit Family Medicine Zacarias Sarabia M.B.B.S., M.D. [address] [place] [address] (Wo rk) 11/11/2021 Comprehensive Visit Orthopedic Surgery Ivan Deng M.D. 

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
--- OUTSIDE RECORDS SUMMARY | 2021-11-07 19:46 | XMS_ITS | Encounter Summary ---
:1980 Author Organization [facility] Address [address] [place] [address] Care Team Providers Name Role Phone Unavailable Primary Care Provider Unavailable Encounter Details Date Type Department Care Team Description 07/05/2013 Hospital Encounter HX [facility] Tony Landaverde M.D. [address] [place], [place] [phone] (Wo rk) Social History Tobacco Use Types Packs/Day Years Used Date Smoking Tobacco: Never Assessed Sex Assigned at Date Recorded Not on file documented as of this encounter Last Filed Vital Signs Vital Sign Reading Time Taken Comments Blood Pressure 118/70 07/05/2013 5:07 PM CDT Pulse - - Temperature - - Respiratory Rate - - Oxygen Saturation - - Inhaled Oxygen Concentration - - Weight 117 kg (257 lb 11.5 oz) 07/05/2013 5:07 PM CDT Height - - Body Mass Index 39.74 06/26/2013 2:20 PM CDT documented in this encounter Progress Notes Kristi Landaverde M.D. - 07/05/2013 4:58 PM CDT [id number] CHIEF COMPLAINT/REASON FOR VISIT OB followup. HISTORY OF PRESENT ILLNESS Narinder is a 32-year-old, 1, para 0, female at 37+5 weeks by 8+0 week ultrasound, who presentsfor OB followup today. Narinder reports that she was treated for an ear infection that began last weekend. She also has had a productive cough associated with that, making it difficult for her to sleep at night. She reports that she has heartburn that contributes to nausea and the cough, and she often ends up vomiting due to this. Positive movement. No contractions, vaginal bleeding, or leakage offluid. She continues to have low abdominal discomfort associated with . MEDICATIONS See EMR. ALLERGIES See EMR. SYSTEMS REVIEW GENERAL: No fevers, chills, fatigue, unintentional weight loss or weight gain. HEENT: No changes in vision or hearing, no sore throat or nasal congestion. CARDIOVASCULAR: No chest pain, irregular heartbeat or racing heart. RESPIRATORY: Positive for cough that is productive - see HPI. No shortness of breath or wheeze. GASTROINTESTINAL: Positive for nausea and vomiting - see HPI. No diarrhea, constipation or abdominal pain. GENITOURINARY: No pain or burning with urination, no irregular vaginal bleeding, heavy periods, painful periods, abnormal vaginal discharge, leaking urine, leaking stool or gas. SKIN: No rashes or skin lesions. BREASTS: No masses or lumps, no discharge from the nipples. NEURO: Nodifficulty with memory, numbness, tingling, falls. PSYCHIATRIC: No anxiety, depression, or difficulty sleeping. ENDOCRINE: No heat intolerance, cold intolerance, excessive thirst or hair loss. COMPLICATIONS OF 1. Scant care. 2. Latent tuberculosis, not treated. VITAL SIGNS See EMR. PHYSICAL EXAMINATION GENERAL: Well-nourished female, in no acute distress. ABDOMEN: Gravid, fundal height 37 cm, heart tones 130s, fetus vertex by Bobby. LOWER EXTREMITIES: Nontender, 1+ edema, bilateral lower extremities. IMPRESSION/REPORT/PLAN A 32-year-old, 1, para 0, female at 37+5 weeks by 8+0 week ultrasound, who presents for OB followup today. 1. care. No specific issues were addressed today. 2. History of urinary frequency, incontinence, dysuria and nocturnal enuresis. Evaluated on multipleoccasions and urinalysis always normal. Cultures were also normal. The patient has no complaints about this today. The patient can follow up with Urology after delivery if she continues to have issues. 3. Gastroesophageal reflux disease. The patient has not been taking the omeprazole regularly. She has been having increased heartburn with nausea and coughing associated with this. I have encouraged her to take this on a scheduled basis and this should help decrease her symptoms. 4. Difficult social situation. The patient is currently working at her new job at night. She is scheduled to work through the 12 of July. She only has a couple of nights left, and she has this cough that makes it difficult for her to sleep. She is not feeling well at all. She was given an excuse to be off of work through the 13 of July for her night shifts so that she can get some rest and get better prior to delivery. Also, the [facility] nurse did contact her, and the patient was encouraged to be in touch with them so that they can help her prepare for the baby since she has minimal resources. 5. Latent tuberculosis. This has not been treated and the patient has not been able to tolerate therapy. I will refer her to Primary Care for treatment once she has delivered. 6. Productive cough. This is likely viral. The patient was given Robitussin AC to use at bedtime to help her sleep. 7. Cerumen impaction. Patient was seen by Sylvia Steel CNP, for this and the cerumen cleared from her ears. 8. Followup. The patient will return in 1 week for OB followup. If she has any questions or concernsprior to that time, she will call the clinic. Kristi Landaverde M.D./scott Electronically Signed By: KRISTI LANDAVERDE MD On: 08/07/2013 01:24 PM Source: [facility] MHSDOLBEYNONRADSYS Document Id: [id number] documented in this encounter Procedure Notes Viktoria Barahona REliseoNEliseo - 07/05/2013 5:44 PM CDT Urine Dipstick Urine Dipstick Entered On: 07/05/2013 17:44 CDT Performed On: 07/05/2013 17:44 CDT by VIKTORIA BECKWITH Urine Dipstick UA Color POC : Yellow UA Appear POC : Clear UA Protein POC : Trace UA Glucose POC : Negative VIKTORIA BECKWITH - 07/05/2013 17:44 CDT Source: [facility] POWERCHART Document Id: [id number] CDT!6 documented in this encounter Miscellaneous Notes Miscellaneous - Kristi Landaverde M.D. - 07/08/2013 1:12 PM CDT Ambulatory Patient Summary [address] [id number] Visit Information Name: NARINDER LUCAS [facility] Number: [id number] Visit Date: 07/08/2013 13:12:29 Attending Provider: KRISTI LANDAVERDE MD Primary Care [...] Take Indications/Special Instructions/Comments/Notes for Patient Medication Changes/Routing codeine-guaiFENesin (Robitussin-AC 10 mg-100 mg/5 mL oral syrup) 10 Milliliter, Oral, once a day (atbedtime) New Routed to Printer multivitamin (multivitamin) Oral, once a day omeprazole (omeprazole 20 mg oral delayed release tablet) 1 Tablet(s), Oral, once a day Stop Taking the Following Medications: Medication list as of 07-08-13 13:12 Attention: If you have any medications at [...] Electronically Signed By: KRISTI LANDAVERDE MD Signed On:08-JUL-2013 13:12:19 Additional Information: Source: [facility] POWERCHART Document Id: [id number] Miscellaneous - Kristi Landaverde M.D. - 07/08/2013 1:12 PM CDT Ambulatory Discharge Medication List [address] [id number] Visit Information Name: NARINDER LUCAS [facility] Number: [id number] Visit Date: 07/08/2013 13:12:27 Attending Provider: KRISTI LANDAVERDE MD Primary Care [...] Take Indications/Special Instructions/Comments/Notes for Patient Medication Changes/Routing codeine-guaiFENesin (Robitussin-AC 10 mg-100 mg/5 mL oral syrup) 10 Milliliter, Oral, once a day (atbedtime) New Routed to Printer multivitamin (multivitamin) Oral, once a day omeprazole (omeprazole 20 mg oral delayed release tablet) 1 Tablet(s), Oral, once a day Stop Taking the Following Medications: Medication list as of 07-08-13 13:12 Attention: If you have any medications at [...] Electronically Signed By: KRISTI LANDAVERDE MD Signed On:08-JUL-2013 13:12:19 Additional Information: Source: [facility] POWERCHART Document Id: [id number] Miscellaneous - Kristi Landaverde M.D. - 07/05/2013 5:28 PM CDT Work Excuse 05 Jul 2013 NARINDER LUCAS [address] [place] [id number] Dear NARINDER LUCAS, You were examined in my office on: 07/05/13 Reason for work excuse: Medical Illness ( _ ) Yes ( X ) No Injury ( _ ) Yes ( X ) No Is excused from all work: ( X ) Yes ( _ ) No Has work limitations: ( _ ) Yes ( X ) No As follows: _ Limitations apply until: 07/13/2013 Follow-Up Appointment : ( 1 week ) Return to Work date: _ Notes: _ Sincerely, KRISTI LANDAVERDE [address] [place] [id number] Electronic Signature Electronically Signed By: KRISTI LANDAVERDE MD On: 05 Jul 2013 This document has images extracted. Source: [facility] POWERCHART Document Id: [id number] Electronically signed by Conversion, [facility] Institutional Cook [id number] at 07/05/2016 8:25 PM CDT Miscellaneous - Beronica Calvert, L.P.N. - 07/05/2013 5:07 PM CDT Adult Oracle Ebs Architect Intake/History Adult Oracle Ebs Architect Intake/History Entered On: 07/05/2013 17:09 CDT Performed On: 07/05/2013 17:07 CDT by BERONICA CALVERT Intake Chief Complaint : OBFU 37 + 5 weeks LMP Date : 09/23/2012 Systolic Blood Pressure : 118 mmHg Diastolic Blood Pressure : 70 mmHg NIBP Mean : 86 mmHg BP Location : Right upper extremity Blood Pressure Cuff Size : Regular Actual Weight : 116.9 kg(Converted to: 257 lb 12 oz) Weight Source : Standing scale Dosing Weight Clinic : 116.9 kg BERONICA CALVERT - 07/05/2013 17:07 CDT General Info Languages : Frisian BERONICA CALVERT - 07/05/2013 17:07 CDT Subjective Pain Symptoms : No BERONICA CALVERT - 07/05/2013 17:07 CDT Dependent Habits Tobacco Use/Currently Using : No Exposure to Tobacco Smoke : Other: never Smoking Status : Never smoker BERONICA CALVERT - 07/05/2013 17:07 CDT Caffeine Use Grid Caffeine Use : Current Type : Chocolate, Coffee, Soft drinks, Tea Frequency : Daily BERONICA CALVERT - 07/05/2013 17:07 CDT Source: [facility] POWERCHART Document Id: [id number] CDT!25 documented in this encounter Plan of Treatment Upcoming Encounters Date Type Specialty Care Team Description 11/09/2021 Office Visit Family Medicine Fadia Merchant M.D. [address] [place] [phone] (Wo rk) 11/10/2021 Office Visit Family Medicine Zacarias Sarabia M.B.B.S., M.D. [address] [place] [phone] (Wo rk) 11/11/2021 Comprehensive Visit Orthopedic Surgery Ivan Deng M.D. [address] [place], [place] [phone] (Wo rk) documented as of this encounter Procedures Procedure Name Priority Date/Time Associated Diagnosis Comme nts POCT KETONE, URINE Routine 07/05/2013 5:44 PM Res ults for this CDT procedure are i n the results section. documented in this encounter Results Ketone, Urine, POCT (07/05/2013 5:44 PM CDT) [facility] Time Signature Color Yellow POWERCHART Appearance Clear POWERCHART Protein, POCT, Trace POWERCHART U Glucose, POCT, Negative POWERCHART U Specimen (Source) Anatomical Collection Method Collection Time Re ceived Time Location / / Volume Laterality 07/05/2013 5:44 PM CDT Kristi Landaverde M.D. LAB POCT ORDERABLES-MANUAL Performing Organization Address City/State/ZIP Code Phon e Number POWERCHART documented in this encounter Visit Diagnoses Not on filedocumented in this encounter Additional Health Concerns Assessment Noted Time PHQ-9 Depression Total Score: 7 04/12/2013 5:31 PM AUDIT INTERN documented as of this encounter
--- OUTSIDE RECORDS SUMMARY | 2021-11-07 19:46 | XMS_ITS | Encounter Summary ---
:1980 Author Organization [facility] Address [address] [place] [address] Care Team Providers Name Role Phone Unavailable Primary Care Provider Unavailable Encounter Details Date Type Department Care Team Description 06/26/2013 Hospital Encounter HX [facility] Patsy Steel APRN, C.N.P. [address] [place] [address] (Wo rk) Social History Tobacco Use Types Packs/Day Years Used Date Smoking Tobacco: Never Assessed Sex Assigned at Date Recorded Not on file documented as of this encounter Last Filed Vital Signs Vital Sign Reading Time Taken Comments Blood Pressure 106/70 06/26/2013 2:20 PM CDT Pulse 60 06/26/2013 2:20 PM CDT Temperature - - Respiratory Rate 16 06/26/2013 2:20 PM CDT Oxygen Saturation - - Inhaled Oxygen Concentration - - Weight 117 kg (257 lb 4.4 oz) 06/26/2013 2:20 PM CDT Height 171.5 cm (5' 7.52) 06/26/2013 2:20 PM CDT Body Mass Index 39.68 06/26/2013 2:20 PM CDT documented in this encounter Progress Notes Olga Steel APRN, C.N.P. - 06/26/2013 2:11 PM CDT [id number] CHIEF COMPLAINT/REASON FOR VISIT Left ear pain. HISTORY OF PRESENT ILLNESS Narinder states she has pain in her left ear. She was told by her OB doctor she had wax in her ear. Shetried to remove it with a Q-tip and now it hurts more. Her hearing is decreased. Right ear feels okay. MEDICATIONS See depart summary from today. ALLERGIES None. SYSTEMS REVIEW Positive for that mentioned in the history of present illness and noted in the past medical history in the EMR. All other systems were reviewed and were negative. PREVENTIVE: Due for fasting lipids and Pap smear. VITAL SIGNS See EMR. PHYSICAL EXAMINATION GENERAL: Well-developed, female in no acute distress. SKIN: Warm and dry. HEENT: Right TM is clear. Left ear canal is impacted with cerumen. Throat clear. NECK: Supple. LUNGS: Clear to auscultation. HEART: Regular rate and rhythm. IMPRESSION/REPORT/PLAN Left ear cerumen impaction. Ear was irrigated with warm water. Moderate amount of cerumen was removed. Tympanic membrane is clear. Recheck if any further problems. Olga Steel CNP/scott Electronically Signed By: OLGA STEEL CNP On: 06/27/2013 04:45 PM Source: [facility] MHSDOLBEYNONRADSYS Document Id: [id number] documented in this encounter Procedure Notes Ivonne Ayala L.PEliseoN. - 06/26/2013 2:50 PM CDT Ear Irrigation Ear Irrigation Entered On: 06/26/2013 14:51 CDT Performed On: 06/26/2013 14:50 CDT by IVONNE AYALA LPN Ear Irrigation Ear Irrigation Location : Left Ear Irrigation Technique Used : Syringe Ear Irrigation Solution Used : Hydrogen peroxide and water Ear Irrigation Results : Large amount of wax removed. Post irrigation ear canal evaluation : Patent Post Irrigation Tympanic Membrane Eval : Intact IVONNE AYALA LPN - 06/26/2013 14:50 CDT Source: [facility] POWERCHART Document Id: [id number] CDT!8 documented in this encounter Miscellaneous Notes Miscellaneous - Olga Steel APRN, C.N.P. - 06/26/2013 2:32 PM CDT Ambulatory Patient Summary [id number] [facility] [place], [place] [id number] Visit Information Name: NARINDER LUCAS [facility] Number: [id number] Current Date: 06/26/2013 14:32:38 Physicians Attending Provider: OLGA STEEL CNP Primary Care Provider: PCP, UNASSIGNED - FB [...] Take Indications/Special Instructions/Comments/Notes for Patient Medication Changes/Routing multivitamin (multivitamin) Oral, once a day omeprazole (omeprazole 20 mg oral delayed release tablet) 1 Tablet(s), Oral, once a day Stop Taking the Following Medications: Medication list as of 06-26-13 14:32 Attention: If you have any medications at home that are not on this list, DO NOT take them until youcontact your provider for clarification. Give a copy of your medication list to your primary care provider. Update your medication list any time medications or doses are changed and carry your medication list at all times in case of emergency. Electronically Signed By: OLGA STEEL CNP Signed On:26-JUN-2013 14:32:14 Your Allergies & Intolerances Substance Reaction Symptoms Category Comments No Known Allergies Drug Your Problem List Problem Status Onset Comments Acne Vulgaris Active 02/28/2008 Xerosis Active 02/28/2008 Constipation NOS Active 12/05/2008 Dysthymic Disorder (300.4) Active Incontinence Active Irregular menses Active Obesity NOS Active Vitamin D deficiency, unspecified Active 12/13/2011 Low back pain Active 01/04/2012 Normal First 1st Preg Active Disease Gastroesophageal Reflux (GERD DARLIN) Active Tb Latent Active Care Insufficient Active Your Upcoming Appointments Date Time Location Reason Provider 06/29/2013 14:15 [facility] UTILIZATION MANAGEMENT RN OBFU Rauenhorst MD, Katy Attention: Contact your local Clinic if further appointment detail needed. [id number] EARWAX (Treated) Everyone produces earwax from the lining of the ear canal. It serves to lubricate and protect the ear. The wax that forms in the canal slowly moves toward the outside of the ear and falls out. Sometimes there will be a build-up of wax in the ear canal causing a blockage and loss of hearing. An ear wax buildup was removed from your ear today. HOME CARE Preventing Future Problems If you have a tendency to build up wax in the ear canal, you should clear the wax at home on a regular basis (about once every six months ) before it causes discomfort. ?? Unless a prescription medicine was given, you may use an njpg-lhw-zshqvwu product made for clearing earwax (such as Debrox or Murine Earwax Drops). These contain carbamide peroxide and are uzvspnitpxjak-ipa-yxalamb in a kit with a small bulb syringe. ?? To use: lie down with the blocked ear facing upward. Apply one dropper full of medicine and wait a few minutes. Wiggle the outer ear to get the solution to enter the canal. ?? Lean over a sink or basin with the blocked ear turned downward. Use a rubber bulb syringe filled with LUKEWARM water to rinse the ear several times. Use gentle pressure only. You may need to repeat the irrigation several times before the wax flows out. ?? If you are having trouble draining all of the water out of your ear canal after this procedure, you may put a few drops of rubbing alcohol into the ear canal. This will help evaporate the remaining water. DO NOT ?? DO NOT use cold water to rinse the ear since this will make you dizzy. ?? DO NOT perform this procedure if you have an ear infection (ear pain, fever, or fluid draining from the ear). ?? DO NOT perform this procedure if you have a punctured eardrum. ?? DO NOT use cotton applicators (Q-tips), matches, toothpicks, oniel pins, keys or other objects toclean the ear canal. This can cause infection of the ear canal or rupture of the eardrum. Because oftheir size and shape, it is common for cotton applicators to push the ear wax deeper into the ear canal instead of removing it. This can make matters worse. FOLLOW UP with your doctor or this facility as directed by our staff. GET PROMPT MEDICAL ATTENTION if any of the following occur: ?? Worsening ear pain ?? Fever of 100.4??F (38??C) or higher, or as directed by your healthcare provider ?? Hearing does not return to normal after three days of treatment ?? Fluid drainage or bleeding from the ear canal ?? Swelling, redness or tenderness of the outer ear Headache, neck pain or stiff neck ?? [id number] [facility], [address] [place] [address]. All rights reserved. This information is not intended as a substitute for professional medical care. Always follow your healthcare professional's instructions. Your Goals/Additional instructions: This document has images extracted. Please consider using [employer] for all your patient education needs. Source: [facility] POWERCHART Document Id: [id number] Miscellaneous - Olga Steel APRN, C.N.P. - 06/26/2013 2:32 PM CDT Ambulatory Discharge Medication List [address] [id number] Visit Information Name: GRIFFIN LUCASNIVIA [place] [facility] Number: [id number] Visit Date: 06/26/2013 14:32:37 Attending Provider: OLGA STEEL CLOTH HAND Primary Care Provider: PCP, UNASSIGNED - FB TRAVISNARINDER YOON has been given the following list of medications: Your Medications It is important to take your medications as directed. Use a pill box or chart to help remind you to take your medications. Please let your doctor or nurse know if you have problems taking your medications. Medication/Strength How to Take Indications/Special Instructions/Comments/Notes for Patient Medication Changes/Routing multivitamin (multivitamin) Oral, once a day omeprazole (omeprazole 20 mg oral delayed release tablet) 1 Tablet(s), Oral, once a day Stop Taking the Following Medications: Medication list as of 06-26-13 14:32 Attention: If you have any medications at home that are not on this list, DO NOT take them until youcontact your provider for clarification. Give a copy of your medication list to your primary care provider. Update your medication list any time medications or doses are changed and carry your medication list at all times in case of emergency. Electronically Signed By: OLGA STEEL CLOTH HAND Signed On:26-JUN-2013 14:32:14 Additional Information: Source: [facility] POWERCHART Document Id: [id number] Miscellaneous - Ivonne Ayala L.P.N. - 06/26/2013 2:20 PM CDT Adult Talent Development Manager Intake/History Adult Talent Development Manager Intake/History Entered On: 06/26/2013 14:21 CDT Performed On: 06/26/2013 14:20 CDT by IVONNE AYALA LPN Intake Chief Complaint : Left ear pain and wax. Temperature Core : 36.6 DegC(Converted to: 97.9 DegF) Peripheral Pulse Rate : 60 /min Respiratory Rate : 16 /min Heart Rhythm : Regular Systolic Blood Pressure : 106 mmHg Diastolic Blood Pressure : 70 mmHg NIBP Mean : 82 mmHg BP Location : Right upper extremity Blood Pressure Cuff Size : Large Height : 171.5 cm(Converted to: 5 ft 8 inch(es), 68 inch(es)) Actual Weight : 116.7 kg(Converted to: 257 lb 4 oz) Weight Source : Standing scale Dosing Weight Clinic : 116.7 kg Clinic BSA : 2.36 Body Mass Index : 39.68 kg/m2 IVONNE AYALA LPN - 06/26/2013 14:20 CDT General Info Information Given By : Patient Languages : Maltese IVONNE AYALA LPN - 06/26/2013 14:20 CDT Subjective Pain Symptoms : Yes IVONNE AYALA LPN - 06/26/2013 14:20 CDT Pain Pain Assessment Grid Pain 1 Location : Ear Laterality : Left IVONNE AYALA LPN - 06/26/2013 14:20 CDT Dependent Habits Tobacco Use/Currently Using : No Exposure to Tobacco Smoke : Other: never Smoking Status : Never smoker IVONNE AYALA HOMER - 06/26/2013 14:20 CDT Caffeine Use Grid Caffeine Use : Current Type : Chocolate, Coffee, Soft drinks, Tea Frequency : Daily IVONNE AYALA HOMER - 06/26/2013 14:20 CDT Source: [employer] Document Id: [id number] CDT!37 Miscellaneous - Ivonne Ayala L.P.N. - 06/26/2013 2:19 PM CDT Health Assessment Health Assessment Entered On: 06/26/2013 14:19 CDT Performed On: 06/26/2013 14:19 CDT by IVONNE AYALA LPN Health Assessment Complete Health Assessment Complete or Modified : Annual Health Assessment Annual Health Assessment Completed : Yes MARSHALLIVONNE Galicia DAVID CORONEL - 06/26/2013 14:19 CDT Nutrition Nutrition Risk Factors by History Adult : None IVONNE AYALA PEOPLESOFT PROGRAMMER - 06/26/2013 14:19 CDT Functional Current Daily Living Assistance : None IVONNE AYALA HOMER - 06/26/2013 14:19 CDT Dependent Habits Tobacco Use/Currently Using : No Exposure to Tobacco Smoke : Other: never Smoking Status : Never smoker IVONNE AYALA HOMER - 06/26/2013 14:19 CDT Caffeine Use Grid Caffeine Use : Current Type : Chocolate, Coffee, Soft drinks, Tea Frequency : Daily IVONNE AYALA HOMER - 06/26/2013 14:19 CDT Psychosocial Domestic Abuse Concerns : None IVONNE AYALA HOMER - 06/26/2013 14:19 CDT Advance Directive Advanced Directives : No IVONNE AYALA HOMER - 06/26/2013 14:19 CDT Educ Needs Learning Style Preference Adult Grid Patient : Printed materials, Verbal explanation Family : Verbal explanation, Printed materials IVONNE AYALA HOMER - 06/26/2013 14:19 CDT Source: [employer] Document Id: [id number] CDT!25 documented in this encounter Plan of Treatment Upcoming Encounters Date Type Specialty Care Team Description 11/09/2021 Office Visit Family Medicine Fadia Merchant M.D. [address] [place] [address] (Wo rk) 11/10/2021 Office Visit Family Medicine Zacarias Sarabia M.B.B.S., M.D. [address] [place] [address] (Wo james) 11/11/2021 Comprehensive Visit Orthopedic Surgery Ivan Deng M.D. [address] [place], [place] [phone] (Wo rk) documented as of this encounter Visit Diagnoses Not on filedocumented in this encounter Additional Health Concerns Assessment Noted Time PHQ-9 Depression Total Score: 7 04/12/2013 5:31 PM CHAIR CANER documented as of this encounter
--- OUTSIDE RECORDS SUMMARY | 2021-11-07 19:46 | XMS_ITS | Encounter Summary ---
:1980 Author Organization [facility] Address [address] [place] [address] Care Team Providers Name Role Phone Unavailable Primary Care Provider Unavailable Encounter Details Date Type Department Care Team Description 07/12/2013 Hospital Encounter HX [facility] Tony Landaverde M.D. [address] [place], [place] [phone] (Wo rk) Social History Tobacco Use Types Packs/Day Years Used Date Smoking Tobacco: Never Assessed Sex Assigned at Date Recorded Not on file documented as of this encounter Last Filed Vital Signs Vital Sign Reading Time Taken Comments Blood Pressure 110/70 07/12/2013 10:50 AM CDT Pulse - - Temperature - - Respiratory Rate - - Oxygen Saturation - - Inhaled Oxygen Concentration - - Weight 116 kg (256 lb 9.9 oz) 07/12/2013 10:50 AM CDT Height - - Body Mass Index 39.58 06/26/2013 2:20 PM CDT documented in this encounter Progress Notes Katy Landaverde M.D. - 07/12/2013 10:46 AM CDT [id number] CHIEF COMPLAINT/REASON FOR VISIT OB followup. HISTORY OF PRESENT ILLNESS Narinder is a 32-year-old, 1, para 0, female at 38 plus 5 weeks by 8 plus 0 week ultrasound whopresents for OB followup today. Narinder is uncomfortable related to her , but overall is doing well. She continues to have lower extremity edema. She also has heartburn. However, she is not taking her omeprazole daily. Positive movement. Occasional contractions. No vaginal bleeding or leakage of fluid. MEDICATIONS See EMR. ALLERGIES See EMR. SYSTEMS REVIEW GENERAL: Positive for weight gain related to . HEENT: No changes in vision or hearing, no sore throat or nasal congestion. CARDIOVASCULAR: No chest pain, irregular heartbeat or racing heart. RESPIRATORY: No shortness of breath, cough or wheeze. GASTROINTESTINAL: No nausea, vomiting, diarrhea,constipation or abdominal pain. GENITOURINARY: No pain or burning with urination, no irregular vaginal bleeding, heavy periods, painful periods, abnormal vaginal discharge, leaking urine, leaking stoolor gas. SKIN: No rashes or skin lesions. BREASTS: No masses or lumps, no discharge from the nipples.NEURO: No difficulty with memory, numbness, tingling, falls. PSYCHIATRIC: No anxiety, depression, ordifficulty sleeping. ENDOCRINE: No heat intolerance, cold intolerance, excessive thirst or hair loss. COMPLICATIONS OF 1. Scant care. 2. Latent tuberculosis, not treated. VITAL SIGNS See EMR. PHYSICAL EXAMINATION GENERAL: Well-nourished female in no acute distress. ABDOMEN: Gravid, fundal height 38 cm, heart tones 140s, fetus vertex by Bobby's. LOWER EXTREMITIES: Nontender, 1+ edema bilateral lower extremities. PELVIC: Cervix closed/long/high. IMPRESSION/REPORT/PLAN A 32-year-old 1, para 0 female at 38 plus 5 weeks by 8 plus 0 week ultrasound who presents for OB followup today. 1. care. issues addressed today include anesthesia plans and labor and at this point she is undecided, but believes she will likely get an epidural early on. movement monitoringwas discussed. Circumcision was discussed and she plans to have the male infant circumcised and domestic violence screening was performed and she has no concerns about this. 2. History of urinary frequency, incontinence, dysuria and nocturnal enuresis. Evaluated on multipleoccasions and urinalysis has always been normal. Cultures were also normal. The patient does not complain about this today. Plan Urology followup after delivery if she continues to have issues. 3. Gastroesophageal reflux disease. The patient has not been taking her omeprazole regularly. I encouraged her to take this scheduled at the time of the last visit and again today. This should help to decrease her symptoms. 4. Difficult social situation. It sounds like the patient has been in touch with one of the crisis centers and also with her insurance and has been able to get a car seat and a pack and play.She has not yet connected with the [facility] nurse as she has significant educational issues and will need resources. She is encouraged to get in touch with them as soon as possible. 5. Latent tuberculosis. Per her report she did not tolerate therapy in the past. [facility] delivered. 6. Productive cough. Resolved. 7. Cerumen impaction. Cleared by Sylvia Steel. 8. Followup. One week. Katy Landaverde M.D./scott Electronically Signed By: KATY LANDAVERDE MD On: 08/21/2013 01:44 PM Source: [facility] MHSDOLBEYNONRADSYS Document Id: [id number] documented in this encounter Procedure Notes Traci Higgins L.P.NEliseo - 07/12/2013 12:11 PM CDT Urine Dipstick Urine Dipstick Entered On: 07/12/2013 12:11 CDT Performed On: 07/12/2013 12:11 CDT by TRACI HIGGINS Urine Dipstick UA Color POC : Yellow UA Appear POC : Clear UA Protein POC : Trace UA Glucose POC : Negative TRACI HIGGINS - 07/12/2013 12:11 CDT Source: [facility] POWERCHART Document Id: [id number] CDT!6 documented in this encounter Miscellaneous Notes Miscellaneous - Traci Higgins L.P.N. - 07/12/2013 10:50 AM CDT Adult Healthcare Science Specialist Intake/History Adult Healthcare Science Specialist Intake/History Entered On: 07/12/2013 10:53 CDT Performed On: 07/12/2013 10:50 CDT by TRACI HIGGINS Intake Chief Complaint : ob visit 38 06/13. having contractions almost daily when active LMP Date : 09/23/12 Systolic Blood Pressure : 110 mmHg Diastolic Blood Pressure : 70 mmHg NIBP Mean : 83 mmHg BP Location : Right upper extremity Actual Weight : 116.4 kg(Converted to: 256 lb 10 oz) Dosing Weight Clinic : 116.4 kg TRACI HIGGINS - 07/12/2013 10:50 CDT General Info Information Given By : Patient Preferred Communication Mode : Verbal Languages : Upper Sorbian GISELATRACI ISAC - 07/12/2013 10:50 CDT Subjective Pain Symptoms : Yes TRACI HIGGINS - 07/12/2013 10:50 CDT Pain Pain Assessment Grid Pain 1 Location : Pelvic (Comment: contractions [AMANUELZack TRACI CHAU - 07/12/2013 10:50 CDT] ) TRACI HIGGINS - 07/12/2013 10:50 CDT Dependent Habits Tobacco Use/Currently Using : No Exposure to Tobacco Smoke : Other: never Smoking Status : Never smoker TRACI HIGGINS - 07/12/2013 10:50 CDT Caffeine Use Grid Caffeine Use : Current Type : Chocolate, Coffee, Soft drinks, Tea Frequency : Daily TRACI HIGGINS - 07/12/2013 10:50 CDT Source: [employer] Document Id: [id number] CDT!29 documented in this encounter Plan of Treatment Upcoming Encounters Date Type Specialty Care Team Description 11/09/2021 Office Visit Family Medicine Fadia Merchant M.D. [address] [place] [address] (Andrew ramirez) 11/10/2021 Office Visit Family Medicine Zacarias Sarabia M.B.B.S., M.D. [address] [place] [phone] (Andrew ramirez) 11/11/2021 Comprehensive Visit Orthopedic Surgery Ivan Deng M.D. [address] [place] [phone] (Wo rk) documented as of this encounter Procedures Procedure Name Priority Date/Time Associated Diagnosis Comme nts POCT KETONE, URINE Routine 07/12/2013 12:11 PM Re sults for this CDT procedure are i n the results section. documented in this encounter Results Ketone, Urine, POCT (07/12/2013 12:11 PM CDT) [facility] Signature Color Yellow POWERCHART Appearance Clear POWERCHART Protein, POCT, Trace POWERCHART U Glucose, POCT, Negative POWERCHART U Specimen (Source) Anatomical Collection Method Collection Time Re ceived Time Location / / Volume Laterality 07/12/2013 12:11 PM CDT Katy Landaverde M.D. LAB POCT ORDERABLES-MANUAL Performing Organization Address City/State/ZIP Code Phon e Number POWERCHART documented in this encounter Visit Diagnoses Not on filedocumented in this encounter Additional Health Concerns Assessment Noted Time PHQ-9 Depression Total Score: 7 04/12/2013 5:31 PM CAREER DEVELOPMENT DIRECTOR documented as of this encounter
--- OUTSIDE RECORDS SUMMARY | 2021-11-07 19:46 | XMS_ITS | Encounter Summary ---
:1980 Author Organization [facility] Address [address] [place] [address] Care Team Providers Name Role Phone Unavailable Primary Care Provider Unavailable Encounter Details Date Type Department Care Team Description 05/21/2013 Hospital Encounter HX [facility] Tony Landaverde M.D. [address] [place], [place] [phone] (Wo rk) Social History Tobacco Use Types Packs/Day Years Used Date Smoking Tobacco: Never Assessed Sex Assigned at Date Recorded Not on file documented as of this encounter Last Filed Vital Signs Vital Sign Reading Time Taken Comments Blood Pressure 126/62 05/21/2013 1:59 PM CDT Pulse - - Temperature - - Respiratory Rate - - Oxygen Saturation - - Inhaled Oxygen Concentration - - Weight 116 kg (255 lb 15.3 oz) 05/21/2013 1:59 PM CDT Height - - Body Mass Index 39.02 04/12/2013 4:29 PM FOOD SERVICE KITCHEN SUPERVISOR documented in this encounter Progress Notes Kristi Landaverde M.D. - 05/21/2013 1:44 PM CDT OBGYN-SV CHIEF COMPLAINT/REASON FOR VISIT OB followup. HISTORY OF PRESENT ILLNESS Narinder is a 32-year-old, 1, para 0 female at 31+ 3 weeks by last menstrual period who presents for OB followup today. Narinder is doing well at this time. Positive movement. No contractions, vaginal bleeding, or leakage of fluid. She continues to have concerns about urinary frequency as wellas nocturnal enuresis. Narinder has had some increased heartburn recently and wonders what she can do for this. MEDICATIONS See EMR. ALLERGIES See EMR. SYSTEMS [...] with memory, numbness, tingling, falls. PSYCHIATRIC: No a nxiety, depression, or difficulty sleeping. ENDOCRINE: No heat intolerance, cold intolerance, excessive thirst or hair loss. COMPLICATIONS OF : Scant care. VITAL SIGNS See EMR. PHYSICAL EXAMINATION GENERAL: Well-nourished female, in no acute distress. ABDOMEN: Gravid, fundal height 31 cm, heart tones 130, fetus vertex by Bobby. LOWER EXTREMITIES: Trace edema bilateral lower extremities, nontender. IMPRESSION/REPORT/PLAN A 32-year-old, 1, para 0, female at 31+ 3 weeks by last menstrual period who presents for OBfollowup today. 1. care: I still do not have the patient's new OB labs. We will need to obtain these from [facility] and she has signed a release of information for these today. I am also uncertainas to whether she has had a new OB examination and we will perform this as if it has not been performed. I will know more once we get the [facility] records. I also do not have the patient's dating information. We will attempt to get the dating ultrasound from [facility]. No other specific issues were addressed today. 2. Urinary frequency and nocturnal enuresis: The patient was counseled to empty her bladder before she goes to bed and also to wake herself up at least once over night to urinate to hopefully prevent this. Dr. Soto performed a urinalysis just over 2 weeks ago and that was normal. I do not think that i nfection is the cause of this. Following delivery, she could be evaluated by Urology if she continues to have issues. 3. Gastroesophageal reflux disease: I will give the patient a prescription for Zantac 150 mg by mouth twice a day for management of her heartburn. 4. Followup: The patient will return in 2 weeks for OB followup. If she has any questions or concerns prior to that time, she should call the clinic. Kristi Landaverde M.D./scott Electronically Signed By: KRISTI LANDAVERDE MD On: 06/01/2013 12:36 PM Source: [facility] MHSDOLBEYNONRADSYS Document Id: [id number] documented in this encounter Procedure Notes Beronica Calvert L.P.N. - 05/21/2013 2:41 PM CDT Urine Dipstick Urine Dipstick Entered On: 05/21/2013 14:42 CDT Performed On: 05/21/2013 14:41 CDT by BERONICA CALVERT Urine Dipstick UA Color POC : Yellow UA Appear POC : Clear UA Leuk POC : Negative UA Nitrite POC : Negative UA Urobilinogen POC : 0.2 mg/dl UA Protein POC : 1+ (30 mg/dl) UA pH POC : 7.0 UA Blood POC : Negativ UA Spec Grav POC : 1.025 UA Ketones POC : Negative UA Bili POC : Negative UA Glucose POC : Negative BERONICA CALVERT - 05/21/2013 14:41 CDT Source: [facility] POWERCHART Document Id: [id number] CDT!14 documented in this encounter Miscellaneous Notes Miscellaneous - Kristi Landaverde M.D. - 05/30/2013 3:55 PM CDT Ambulatory Patient Summary [address] [id number] Visit Information Name: NARINDER LUCAS [facility] Number: [id number] Current Date: 05/30/2013 15:55:55 Physicians Attending Provider: KRISTI LANDAVERDE MD; KRISTI LANDAVERDE [...] medications. Medication/Strength Dose Route Frequency Indications/Special Instructions/Comments/Notes ranitidine (Zantac 150 oral tablet) 150 mg Oral two times a day calcium carbonate (Tums) 500 mg three times a day as needed for Heartburn multivitamin (multivitamin) Oral once a day Attention: If you [...] Electronically Signed By: KRISTI LANDAVERDE MD Signed On:30-MAY-2013 15:55:45 Your Allergies & Intolerances Substance Reaction Symptoms Category Comments No Known Allergies Drug Your Problem List Problem Status Onset Comments Acne Vulgaris Active 02/28/2008 Xerosis Active 02/28/2008 Constipation NOS Active 12/05/2008 Dysthymic Disorder (300.4) Active Incontinence Active Irregular menses Active Obesity NOS Active Vitamin D deficiency, unspecified Active 12/13/2011 Low back pain Active 01/04/2012 Normal First 1st Preg Active Your Upcoming Appointments Date Time Location Reason Provider 06/04/2013 09:30 [facility] 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 Your Goals/Additional instructions: Source: [facility] POWERCHART Document Id: [id number] Miscellaneous - Kristi Landaverde M.D. - 05/30/2013 3:55 PM CDT Ambulatory Discharge Medication List [address] [id number] Visit Information Name: NARINDER LUCAS [facility] Number: [id number] Visit Date: 05/30/2013 15:55:54 Attending Provider: KRISTI LANDAVERDE MD; KRISTI LANDAVERDE [...] medications. Medication/Strength Dose Route Frequency Indications/Special Instructions/Comments/Notes ranitidine (Zantac 150 oral tablet) 150 mg Oral two times a day calcium carbonate (Tums) 500 mg three times a day as needed for Heartburn multivitamin (multivitamin) Oral once a day Attention: If you [...] Electronically Signed By: KRISTI LANDAVERDE MD Signed On:30-MAY-2013 15:55:45 Additional Information: Source: [facility] POWERCHART Document Id: [id number] Miscellaneous - Beronica Calvert, L.P.N. - 05/21/2013 1:59 PM CDT Adult Management Architect Intake/History Adult Management Architect Intake/History Entered On: 05/21/2013 14:00 CDT Performed On: 05/21/2013 13:59 CDT by BERONICA CALVERT Intake Chief Complaint : OBFU 31 3/7 weeks Systolic Blood Pressure : 126 mmHg Diastolic Blood Pressure : 62 mmHg NIBP Mean : 83 mmHg BP Location : Left upper extremity Blood Pressure Cuff Size : Regular Actual Weight : 116.1 kg(Converted to: 255 lb 15 oz) Weight Source : Standing scale Dosing Weight Clinic : 116.1 kg BERONICA CALVERT - 05/21/2013 13:59 CDT General Info Languages : Divehi BERONICA CALVERT 05/21/2013 13:59 CDT Subjective Pain Symptoms : No BERONICA CALVERT 05/21/2013 13:59 CDT Dependent Habits Tobacco Use/Currently Using : Yes Exposure to Tobacco Smoke : Other: never Smoking Status : Never smoker BERONICA CALVERT 05/21/2013 13:59 CDT Caffeine Use Grid Caffeine Use : Current Type : Chocolate, Coffee, Soft drinks, Tea Frequency : Daily BERONICA CALVERT 05/21/2013 13:59 CDT Source: [facility] [employer] Document Id: [id number] CDT!24 documented in this encounter Plan of Treatment Upcoming Encounters Date Type Specialty Care Team Description 11/09/2021 Office Visit Family Medicine Fadia Merchant M.D. [address] [place] [address] (Wo rk) 11/10/2021 Office Visit Family Medicine Zacarias Sarabia M.B.B.S., M.D. [address] [place] [address] (Wo rk) 11/11/2021 Comprehensive Visit Orthopedic Surgery Ivan Deng M.D. [address] [place], [place] [phone] (Wo rk) documented as of this encounter Procedures Procedure Name Priority Date/Time Associated Comments Diagnosis DIPSTICK, POCT, U Routine 05/21/2013 2:41 PM Resu lts for this (NURSING) INTERFACED CDT procedu re are in the results section. documented in this encounter Results Dipstick, POCT, Urine (nursing) (05/21/2013 2:41 PM CDT) [facility] Method Time Signature Color Yellow POWERCHART Appearance Clear POWERCHART Leukocytes, Negative POWERCHART POCT, U Nitrites, Negative POWERCHART POCT, U Urobilinogen, 0.2 mg/dl POWERCHART POCT, Urine Protein, POCT, 1+ (30 POWERCHART U mg/dl) pH, POCT, 7.0 5.0 - 9.0 POWERCHART Urine Blood, POCT, U Negativ POWERCHART Specific 1.025 1.000 - POWERCHART [place], POCT, 1.030 U Ketone, POCT, Negative POWERCHART U Bilirubin, Negative POWERCHART POCT, U Glucose, POCT, Negative POWERCHART U Specimen (Source) Anatomical Collection Method Collection Time Re ceived Time Location / / Volume Laterality 05/21/2013 2:41 PM CDT Kristi Landaverde M.D. LAB POCT ORDERABLES - DEVICE Performing Organization Address City/State/ZIP Code Phon e Number POWERCHART documented in this encounter Visit Diagnoses Not on filedocumented in this encounter Additional Health Concerns Assessment Noted Time PHQ-9 Depression Total Score: 7 04/12/2013 5:31 PM FOOD SERVICE KITCHEN SUPERVISOR documented as of this encounter
--- OUTSIDE RECORDS SUMMARY | 2021-11-07 19:46 | XMS_ITS | Encounter Summary ---
:1980 Author Organization [facility] Address [address] [place] [address] Care Team Providers Name Role Phone Unavailable Primary Care Provider Unavailable Encounter Details Date Type Department Care Team Description 06/14/2013 Hospital Encounter HX NO MAPPING Nickolas Salas M.D. [address], [place] [phone] (Wo rk) Social History Tobacco Use Types Packs/Day Years Used Date Smoking Tobacco: Never Assessed Sex Assigned at Date Recorded Not on file documented as of this encounter Plan of Treatment Upcoming Encounters Date Type Specialty Care Team Description 11/09/2021 Office Visit Family Medicine Fadia Merchant M.D. [address] [place] [address] (Wo rk) 11/10/2021 Office Visit Family Medicine Zacarias Sarabia M.B.B.S., M.D. [address] [place] [address] (Wo rk) 11/11/2021 Comprehensive Visit Orthopedic Surgery Ivan Deng M.D. [address], [place] [phone] (Wo rk) documented as of this encounter Visit Diagnoses Not on filedocumented in this encounter Additional Health Concerns Assessment Noted Time PHQ-9 Depression Total Score: 7 04/12/2013 5:31 PM TIER OVER documented as of this encounter
--- OUTSIDE RECORDS SUMMARY | 2021-11-07 19:46 | XMS_ITS | Encounter Summary ---
:1980 Author Organization [facility] Address [address] [place] [address] Care Team Providers Name Role Phone Unavailable Primary Care Provider Unavailable Encounter Details Date Type Department Care Team Description 01/04/2012 Hospital Encounter HX [facility] FAMILY[facility] Patsy Tang APRN, C.N.P. [address] [place] [address] (Wo rk) Social History Tobacco Use Types Packs/Day Years Used Date Smoking Tobacco: Never Assessed Sex Assigned at Date Recorded Not on file documented as of this encounter Last Filed Vital Signs Vital Sign Reading Time Taken Comments Blood Pressure 110/72 01/04/2012 2:55 PM CHECKING DEPARTMENT SUPERVISOR Pulse 80 01/04/2012 2:55 PM CHECKING DEPARTMENT SUPERVISOR Temperature - - Respiratory Rate 18 01/04/2012 2:55 PM CHECKING DEPARTMENT SUPERVISOR Oxygen Saturation - - Inhaled Oxygen Concentration - - Weight 112 kg (245 lb 13 oz) 01/04/2012 2:55 PM CHECKING DEPARTMENT SUPERVISOR Height - - Body Mass Index 38.58 12/13/2011 10:25 AM CHECKING DEPARTMENT SUPERVISOR documented in this encounter Progress Notes Olga Tang APRN, C.N.P. - 01/04/2012 2:48 PM CST [id number] CHIEF COMPLAINT/REASON FOR VISIT Low back pain HISTORY OF PRESENT ILLNESS Dinorah is here with complaints of low back pain. She is obese with a BMI of 38.06. She has recently been treated for vitamin D deficiency. She states that she moved in with her brother and [id number] and her [id number] cooks a lot of good food and she has been eating more than she should. She alsoadmits to going to [employer] a lot. 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 She was shocked today when I told her that she weighed over 245 pounds CURRENT MEDICATIONS See depart summary from today. ALLERGIES None. SYSTEMS REVIEW Positive for that mentioned in history present illness and noted in the past medical history in the EMR all other systems reviewed and were negative PREVENTIVE: Up-to-date VITAL SIGNS See EMR PHYSICAL EXAMINATION GENERAL: Well developed obese female in no acute distress. SKIN: Warm and dry. ENT: TMs clear. Throat clear. NECK: Supple. No lymphadenopathy or thyromegaly. HEART: Regular rate and rhythm S1-S2 no murmur. LUNGS: Clear to auscultation. ABDOMEN: Soft, nontender, hepatosplenomegaly. SPINE: Normal range of motion of the cervical thoracic and lumbar spine. Tenderness to palpation over the lumbosacral paraspinal musculature. EXTREMITIES: Deep tendon reflexes 2+ and symmetrical. Straight leg raising is negative bilaterally. Hip range of motion within normal limits. Heel toe walking is normal. 1+ edema in the lower extremities. IMPRESSION/REPORT/PLAN Low back pain with significant weight gain, BMI 38 and vitamin D deficiency. We had a long talk today about being healthy. She needs to start eating a healthy diet including 3 small meals per day with a regular exercise program. I did give her referral to [facility] will have them teacher her some exercises for her low back. She needs to get those muscles strong again and continue with her vitamin D. She is supposed to return for another vitamin D level with Dr. Anton in 3 weeks Total time spent with the patient 25 minutes 15 minutes of it counseling and coordinating care Olga Tang CNP/adrian Electronically Signed By: OLGA TANG CNP On: 01/09/2012 12:13 PM Source: [facility] MHSDDWIGHT Document Id: [id number] KING DEPARTMENT SUPERVISOR documented in this encounter Miscellaneous Notes Miscellaneous - Olga Tang APRN, C.N.P. - 01/04/2012 3:14 PM CST Ambulatory Patient Summary [address] [place] [address] Visit Information Name: DINORAH [place] [facility] Number: [id number] Current Date: 01/04/2012 15:14:10 Physicians Attending Provider: OLGA TANG CNP Primary Care Provider: PCP, UNASSIGNED Your Medications Here is a list of your medications. It is important to take your medications as directed. Use a pillbox or chart to help remind you to take your medications. Please let your doctor or nurse know if you have problems taking your medications. Medication/Strength Dose Route Frequency Indications/Special Instructions/Comments multivitamin (multivitamin) Oral once a day ergocalciferol (Vitamin D2 50,000 intl units oral capsule) 50,000 IntU Oral every week Attention: If you have any medications at home that are not on this list, DO NOT take them until youcontact your provider for clarification. Your Allergies & Intolerances Substance Reaction Symptoms Category Comments No Known Allergies Drug Your Problem List Problem Status Onset Comments Urinary Urgency Active 02/28/2008 Acne Vulgaris Active 02/28/2008 Xerosis Active 02/28/2008 Urinary Frequency Active 12/05/2008 Constipation NOS Active 12/05/2008 Dysthymic Disorder (300.4) Active Incontinence Active Irregular menses Active Obesity NOS Active Other Unspecified Back Disorders Active Vitamin D deficiency, unspecified Active 12/13/2011 Low back pain Active 01/04/2012 Your Upcoming Appointments Date Time Location Reason Provider No Appointments found Your Goals/Additional instructions: Source: [facility] POWERCHART Document Id: [id number] KING DEPARTMENT SUPERVISOR Miscellaneous - Olga Tang APRN, C.N.P. - 01/04/2012 3:14 PM CST Ambulatory Depart Summary [address] [place] [address] Visit Information Name: DINORAH [place] [facility] Number: [id number] Visit Date: 01/04/2012 15:14:09 Attending Provider: OLGA TANG CNP Primary Care Provider: PCP, UNASSIGNED DINORAH [place] has been given the following list of medications: Your Medications It is important to take your medications as directed. Use a pill box or chart to help remind you to take your medications. Please let your doctor or nurse know if you have problems taking your medications. Medication/Strength Dose Route Frequency Indications/Special Instructions/Comments multivitamin (multivitamin) Oral once a day ergocalciferol (Vitamin D2 50,000 intl units oral capsule) 50,000 IntU Oral every week Attention: If you have any medications at home that are not on this list, DO NOT take them until youcontact your provider for clarification. Additional Information: Source: [facility] POWERCHART Document Id: [id number] KING DEPARTMENT SUPERVISOR Miscellaneous - Lamar Miranda L.P.N. - 01/04/2012 2:55 PM CST Adult Hosiery Repairer Intake/History Adult Hosiery Repairer Intake/History Entered On: 01/04/2012 14:57 CHECKING DEPARTMENT SUPERVISOR Performed On: 01/04/2012 14:55 CHECKING DEPARTMENT SUPERVISOR by LAMAR MIRANDA Intake Chief Complaint : low back pain and also legs get swollen Temperature Core : 36.5C(Converted to: 97.7DegF) Peripheral Pulse Rate : 80/min Respiratory Rate : 18/min Systolic Blood Pressure : 110mmHg Diastolic Blood Pressure : 72mmHg NIBP Mean : 85mmHg Actual Weight : 111.5kg(Converted to: 245lb 13oz) Dosing Weight Clinic : 111.50kg LAMAR MIRANDA - 01/04/2012 14:55 CHECKING DEPARTMENT SUPERVISOR Subjective Pain Symptoms : Yes LAMAR MIRANDA - 01/04/2012 14:55 CHECKING DEPARTMENT SUPERVISOR Pain Pain Assessment Grid Pain 1 Location : Lower back Laterality : Bilateral LAMAR MIRANDA - 01/04/2012 14:55 CHECKING DEPARTMENT SUPERVISOR Dependent Habits Tobacco Use/Currently Using : No Exposure to Tobacco Smoke : Other: never Smoking Status : Never smoker LAMAR MIRANDA - 01/04/2012 14:55 CHECKING DEPARTMENT SUPERVISOR Caffeine Use Grid Caffeine Use : Current Type : Chocolate, Coffee, Soft drinks, Tea Frequency : Daily LAMAR MIRANDA - 01/04/2012 14:55 CHECKING DEPARTMENT SUPERVISOR Allergy Allergies (Active) NKA Estimated Onset Date: Unspecified ; Created By: ODALIS BORRERO; Reaction Status: Active ; Category: Drug ; Substance: NKA ; Type: Allergy ; Updated By: ODALIS BORRERO; Reviewed Date: 12/13/2011 10:24 CHECKING DEPARTMENT SUPERVISOR Source: [facility] POWERCHART Document Id: [id number] KING DEPARTMENT SUPERVISOR documented in this encounter Plan of Treatment Upcoming Encounters Date Type Specialty Care Team Description 11/09/2021 Office Visit Family Medicine Fadia Merchant M.D. [address] [place] [address] (Wo rk) 11/10/2021 Office Visit Family Medicine Zacarias Sarabia M.B.B.S., M.D. [address] [place] [address] (Wo rk) 11/11/2021 Comprehensive Visit Orthopedic Surgery Ivan Deng M.D. [address] [place], [place] [phone] (Wo rk) documented as of this encounter Visit Diagnoses Not on filedocumented in this encounter Additional Health Concerns Assessment Noted Time PHQ-9 Depression Total Score: 12 12/13/2011 10:[address] documented as of this encounter
--- OUTSIDE RECORDS SUMMARY | 2021-11-07 19:46 | XMS_ITS | Encounter Summary ---
:1980 Author Organization [facility] Address [address] [place] [address] Care Team Providers Name Role Phone Unavailable Primary Care Provider Unavailable Encounter Details Date Type Department Care Team Description 05/28/2013 Hospital Encounter HX [facility] Suraj Uriostegui M.D. [address] [address] (Andrew ramirez) Social History Tobacco Use Types Packs/Day Years Used Date Smoking Tobacco: Never Assessed Sex Assigned at Date Recorded Not on file documented as of this encounter Plan of Treatment Upcoming Encounters Date Type Specialty Care Team Description 11/09/2021 Office Visit Family Medicine Fadia Merchant M.D. [address] [place] [address] (Wo rk) 11/10/2021 Office Visit Family Medicine Zacarias Sarabia M.B.B.S., M.D. [address] [place] [address] (Wo rk) 11/11/2021 Comprehensive Visit Orthopedic Surgery Ivan Deng M.D. [address] [place], [place] [phone] (Wo rk) documented as of this encounter Procedures Procedure Name Priority Date/Time Associated Diagnosis Comme nts DX CHEST 1 VIEW Routine 05/28/2013 2:19 PM Result s for this CDT procedure are i n the results section. documented in this encounter Results DX Chest 1 View (05/28/2013 2:19 PM CDT) Anatomical Region Laterality Modality Chest N/A Radiographic Imaging Specimen (Source) Anatomical Collection Method Collection Time Re ceived Time Location / / Volume Laterality 05/28/2013 2:19 PM CDT Addenda Addendum by Provider, Vannessa Rose 05/28/2013 2:19 PM CDT RAD^^^OW XR Chest 1 view 05/28/2013 14:19:26 Impressions 05/28/2013 2:37 PM CDT ??Please see above dictation. Narrative 05/28/2013 2:37 PM CDT EXAM: ??XR Chest 1 view AGE: ??32 years old. GENDER: ??Female. 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 COMPARISON: ??None. FINDINGS: ??Shallow inspiration. No focal areas of consolidation. No pneu mothorax. No appreciable radiographic findings for TB. Procedure Note Abdullahi Camilo M.D. / Provider, Bryan matt M.D. - 06/18/2016 EXAM: XR Chest 1 view AGE: [age] years old. GENDER: Female. INDICATION: positive mantoux- pre-emloym ent [facility] COMPARISON: None. FINDINGS: Shallow inspiration. No focal areas of consolidation. No pneu mothorax. No appreciable radiographic findings for TB. IMPRESSION: Please see above dictation. Anna Juárez([place]) [facility]ul DIAGNOSTIC IMAGING PROC EDURES documented in this encounter Visit Diagnoses Not on filedocumented in this encounter Additional Health Concerns Assessment Noted Time PHQ-9 Depression Total Score: 7 04/12/2013 5:31 PM RECORDS COORDINATOR documented as of this encounter
--- OUTSIDE RECORDS SUMMARY | 2021-11-07 19:46 | XMS_ITS | Encounter Summary ---
:1980 Author Organization [facility] Address [address] [place] [id number] Care Team Providers Name Role Phone Unavailable Primary Care Provider Unavailable Encounter Details Date Type Department Care Team Description 07/01/[address] [facility] Carol Dean M.D. [address] [place], [place] [address] (Wo rk) Social History Tobacco Use Types Packs/Day Years Used Date Smoking Tobacco: Never Assessed Sex Assigned at Date Recorded Not on file documented as of this encounter Last Filed Vital Signs Vital Sign Reading Time Taken Comments Blood Pressure 102/64 07/01/2011 10:49 AM CDT Pulse 84 07/01/2011 10:49 AM CDT Temperature - - Respiratory Rate 16 07/01/2011 10:49 AM CDT Oxygen Saturation - - Inhaled Oxygen Concentration - - Weight 106 kg (232 lb 12.9 oz) 07/01/2011 10:49 AM CDT Height - - Body Mass Index 36.97 05/13/2011 2:24 PM CDT documented in this encounter Progress Notes Shreya Dean M.D. - 07/01/2011 12:00 AM CDT [id number] CHIEF COMPLAINT/REASON FOR VISIT Multiple issues. HISTORY OF PRESENT ILLNESS This 30-year-old female presents to the clinic secondary to multiple concerns. Has been having chronic back pain for many years. Has not had any injury although her appointment with Dr. Atnon may have had an accident sometime in the past and she has had pain since that time. Has had episodic swelling in her bilateral lower extremities and has had incontinence life long in nature. Will wake up in a wet bed. Does go to the bathroom on a regular basis, but if she does not get there she is unable to control her urine. She also has very irregular menstrual cycles, frequently going 40 days or skipping a month and then it will last only a few days. She has been arranged to be . She has talked to her new partner who lives in [place] and he will apparently be moving to this country sometime in the next year and she would like to have the above issues stabilized. She has never been sexually active. EMR is reviewed. Please see the records. CURRENT MEDICATIONS None. ALLERGIES No known drug allergies SYSTEMS REVIEW Constitutional: No fevers, chills, night sweats. Slow weight gain over the years. Eyes: No difficulties with blurred vision. Last ophthalmic exam 2011. Wears glasses. ENT: No hearing loss or oral problems. Last dental exam 2009. CV: No chest pain, palpitations, edema or true claudication. Respiratory: No cough, wheeze, hemoptysis or shortness of breath. GI: No hematemesis, melena, dysphagia or change in every other day bowel regimen. Does occasionally have some bleeding from hemorrhoids, happens a few times a year. Long standing in nature. Has pain frequently on the left lower quadrant. It may be related to her bowel movements. : No hematuria. No true dysuria. Does have a bit of tenderness when the urine passes by the skin in her dagoberto area and this has been longstanding in nature. Also notes that the skin is getting darker in between her thighs. Musculoskeletal: No joint pain, swelling, stiffness or obvious deformities apart from that described above. Integumentary: No rashes or pruritus. See above. Neuro: No seizures or syncopal events. Psychiatric: Feels she may have anxiety or depression and she relates this to not knowing anybody in this country. Having minimal friends as well as to her above health issues and her upcoming marriage which is stressful. Endocrine: No history of diabetes or thyroid problems. See above. Hematologic/lymphatic: No history of anemia or bleeding. Allergic/immunologic: Please see the chart. PAST MEDICAL/SURGICAL HISTORY Surgeries None. Other hospitalizations Superficial ear trauma leading to repair in the emergency room at [facility] sometime in the last few years. Other health issues 1. Dysthymic disorder 2. Incontinence 3. Irregular menstrual cycle. 4. Morbid obesity. 5. Chronic back pain. 6. Relative constipation. PREVENTIVE SERVICES Tobacco use: None. Mammogram: Non applicable secondary to stated age. Pap smear: Deferred secondary to extensive work up planned for the near future. Chlamydia: Not applicable secondary to patient's health history. Colon screening: Non applicable secondary to stated age. Depression: Perhaps, PHQ-9 score today 6. Asthma: No Lipids: Have been advised. Tdap booster: 02-16-2005 Pneumovax: Non applicable secondary to stated age. Influenza: Non applicable secondary to time of year. DEXA scan: Non applicable secondary to stated age. SOCIAL HISTORY Tobacco: None. Alcohol: None. Occasional tea. A couple of cans of soda each day which she is planning to discontinue. FAMILY HISTORY Limited. Mother has hyperlipidemia and a history of TB. Father hypertension. Grandparents health history unknown. Siblings health history is not clear. No children. Has never been sexually active. VITAL SIGNS WEIGHT: 105.6 kg TEMPERATURE: 36.4 RESPIRATORY RATE: 16 PULSE: 84 SYSTOLIC: 102 DIASTOLIC: 64 PHYSICAL EXAM GENERAL: Slightly disheveled female smelling of urine. SKIN: Warm and dry with some increased pigmentation in the thighs. HEAD: No evidence of trauma, tenderness or masses. EYES: PERRLA. Full EOM. Funduscopic exam grossly normal. ENT: Ears: Tympanic membranes are sanchez. Subjectively intact hearing. Nose: Mucosal membranes pink and moist. Septum is midline. Oral: No exudates. Teeth in good condition. No pharyngeal erythema. Neck: Supple. Trachea midline. LYMPH NODES: No cervical or femoral adenopathy. THYROID: No thyroid masses, tenderness or enlargement. HEART: Regular rate and rhythm. No clicks, rubs or murmurs. LUNGS: Clear to auscultation. No palpable chest wall masses. ABDOMEN: Soft, nontender, bowel sounds present. Organomegaly is difficult to assess secondary to body habitus. EXTREMITIES: Trace to 1+ ankle edema into the feet as well. GAIT: Smooth and easy. MENTAL: Speech is of normal rate and volume, articulate, coherent, spontaneous with no notation of abnormalities. Thought processes reveal intact abstract reasoning and computation. No loose tangential circumstantial thoughts. No hallucinations. No delusions. No preoccupation with violence. No homicidal or suicidal ideations. Marked psychosocial somatic. ruminations. Gaining insight into situation and illness process. Oriented to person, place and time. Recent and remote memory are intact. Attention span and concentration are at baseline. Language and fund of knowledge suggest average intellect. Mood and affect reflect no evidence of depression, anxiety, agitation, hypomania or emotional lability. NEURO: Reflexes 2+ triceps, biceps, knees and ankles. IMPRESSION/REPORT/PLAN 1. Incontinence. 2. Irregular menses. 3. Obesity 4. Chronic back pain. 5. Possible dysthymic disorder. PLAN Patient's dysthymic symptoms could indeed be related to her chronic health issues and upcoming planned wedding, but will continue to follow closely. Given the nature of her symptoms as well as her cultural issues would like to avoid his redundant pelvic evaluations as much as possible. Would likely benefit from urogynecology evaluation. This will hopefully be arranged at [facility]. Initial laboratory evaluation has been obtained and it is stable. Symptoms could indeed reflect some type of poorly defined neurogenic problems. Signs and symptoms to lead to a more urgent evaluation are reviewed. May need to consider medicines in the near future in regards to her mood issues should they not stabilized with the above evaluation, but will defer at this time. She is comfortable with the above plan and will follow up as noted. [facility]/eryn Signed Shreya Dean M.D. Family Medicine Electronically Signed By: SHREYA DEAN MD On: 07/07/2011 08:09 AM Source: [facility] MHSDOLBEYNONRADSYS Document Id: [id number] documented in this encounter Miscellaneous Notes Miscellaneous - Shreya Dean M.D. - 07/01/2011 12:19 PM CDT Ambulatory Depart Summary [address] [address] Visit Information Name: [place] Visit Date: 07/01/2011 12:19:46 Attending Provider: SHREYA DAEN MD Primary Care Provider: PCP, UNASSIGNED [place] has been given the following list of medications: Your Medications It is important to take your medications as directed. Use a pill box or chart to help remind you to take your medications. Please let your doctor or nurse know if you have problems taking your medications. Medication/Strength Dose Route Frequency Indications/Special Instructions/Comments No Medications found Attention: If you have any medications at home that are not on this list, DO NOT take them until youcontact your provider for clarification. Additional Information: Source: [facility] POWERCHART Document Id: [id number] Miscellaneous - Shreya Dean M.D. - 07/01/2011 12:19 PM CDT Ambulatory Patient Summary [address] [address] Visit Information Name: [place] Current Date: 07/01/2011 12:19:46 Physicians Attending Provider: SHREYA DEAN MD Primary Care Provider: PCP, UNASSIGNED Your Medications Here is a list of your medications. It is important to take your medications as directed. Use a pillbox or chart to help remind you to take your medications. Please let your doctor or nurse know if you have problems taking your medications. Medication/Strength Dose Route Frequency Indications/Special Instructions/Comments No Medications found Attention: If you have any medications at home that are not on this list, DO NOT take them until youcontact your provider for clarification. Your Allergies & Intolerances Substance Reaction Symptoms Category Comments No Known Allergies Drug Your Problem List Problem Status Onset Comments Urinary Urgency Active 02/28/2008 Enuresis Nocturnal Sleep Active 02/28/2008 Acne Vulgaris Active 02/28/2008 Xerosis Active 02/28/2008 Urinary Frequency Active 12/05/2008 Constipation NOS Active 12/05/2008 Dysthymic Disorder (300.4) Active Incontinence Active Irregular menses Active Obesity NOS Active Other Unspecified Back Disorders Active Your Upcoming Appointments Date Time Location Reason Provider 08/19/2011 15:30 [facility] Urology pain on kidney Fernando Martel MD Your Goals/Additional instructions: Source: [facility] POWERCHART Document Id: [id number] Shefalicellaneous - Shreya Dean M.D. - 07/01/2011 12:14 PM CDT PHQ-9 PHQ-9 Entered On: 07/01/2011 12:14 CDT Performed On: 07/01/2011 12:14 CDT by SHREYA DEAN MD PHQ-9 Little interest or pleasure in doing things : Not at all Feeling down, depressed, or hopeless : Several days Trouble falling or staying asleep, or sleeping too much : Not at all Feeling tired or having little energy : Several days Poor appetite or overeating : Nearly every day Feeling bad about yourself or that you are a failure : Several days Trouble concentrating on things : Not at all Moving or speaking slowly; restless or fidgety : Not at all Thoughts that you would be better off /hurting self : Not at all PHQ-9 Calculated Score : 6 Problems make work, home, or dealing with others : Somewhat difficult SHREYA DEAN MD - 07/01/2011 12:14 CDT Source: [facility] Document Id: [id number] CDT!13 Miscellaneous - Leticia Gorman L.P.N. - 07/01/2011 10:49 AM CDT Adult Fitter Type Bar And Segment Intake/History Adult Fitter Type Bar And Segment Intake/History Entered On: 07/01/2011 10:52 CDT Performed On: 07/01/2011 10:49 CDT by LETICIA GORMAN LPN Intake Chief Complaint : low back pain feet swollen Temperature Core : 36.4C(Converted to: 97.5DegF) (LOW) Peripheral Pulse Rate : 84/min Respiratory Rate : 16/min Systolic Blood Pressure : 102mmHg Diastolic Blood Pressure : 64mmHg NIBP Mean : 77mmHg BP Location : Left upper extremity Blood Pressure Cuff Size : Large Actual Weight : 105.6kg(Converted to: 232lb 13oz) Dosing Weight Clinic : 105.60kg LETICIA GORMAN LPN - 07/01/2011 10:49 CDT Subjective Pain Symptoms : Yes LETICIA GORMANZack CORONEL - 07/01/2011 10:49 CDT Pain Pain Assessment Grid Pain 1 Location : Lower back LETICIA GORMAN HOMER - 07/01/2011 10:49 CDT Dependent Habits Tobacco Use/Currently Using : No Exposure to Tobacco Smoke : Other: never Smoking Status : Never smoker LETICIA GORMANZack CORONEL - 07/01/2011 10:49 CDT Allergy Allergies (Active) NKA Estimated Onset Date: Unspecified ; Created By: ODALIS BORRERO; Reaction Status: Active ; Category: Drug ; Substance: NKA ; Type: Allergy ; Updated By: ODALIS BORRERO; Reviewed Date: 07/01/2011 10:48 CDT Source: [facility] Document Id: [id number] CDT!23 documented in this encounter Plan of Treatment Upcoming Encounters Date Type Specialty Care Team Description 11/09/2021 Office Visit Family Medicine Fadia Merchant M.D. [address] [place] [phone] ( james) 11/10/2021 Office Visit Family Medicine Zacarias Sarabia M.B.B.S., M.D. [address] [place] [phone] ( james) 11/11/2021 Comprehensive Visit Orthopedic Surgery Ivan Deng M.D. [address] [place] [phone] ( james) documented as of this encounter Visit Diagnoses Not on filedocumented in this encounter Additional Health Concerns Assessment Noted Time PHQ-9 Depression Total Score: 6 07/01/2011 12:14 PM CD T documented as of this encounter
--- OUTSIDE RECORDS SUMMARY | 2021-11-07 19:46 | XMS_ITS | Encounter Summary ---
:1980 Author Organization [facility] Address [address] [place] [address] Care Team Providers Name Role Phone Unavailable Primary Care Provider Unavailable Encounter Details Date Type Department Care Team Description 05/03/2013 Hospital Encounter HX [facility] Katy Salas M.D. [address] [place], [place] [phone] (Wo james) Social History Tobacco Use Types Packs/Day Years Used Date Smoking Tobacco: Never Assessed Sex Assigned at Date Recorded Not on file documented as of this encounter Plan of Treatment Upcoming Encounters Date Type Specialty Care Team Description 11/09/2021 Office Visit Family Medicine Fadia Merchant M.D. [address] [place] [phone] (Wo rk) 11/10/2021 Office Visit Family Medicine Zacarias Sarabia M.B.B.S., M.D. [address] [place] [phone] (Wo rk) 11/11/2021 Comprehensive Visit Orthopedic Surgery Ivan Deng M.D. [address] [place], [place] [phone] (Wo rk) documented as of this encounter Visit Diagnoses Not on filedocumented in this encounter Additional Health Concerns Assessment Noted Time PHQ-9 Depression Total Score: 7 04/12/2013 5:31 PM [employer] documented as of this encounter
--- OUTSIDE RECORDS SUMMARY | 2021-11-07 19:46 | XMS_ITS | Encounter Summary ---
:1980 Author Organization [facility] Address [address] [place] [address] Care Team Providers Name Role Phone Unavailable Primary Care Provider Unavailable Encounter Details Date Type Department Care Team Description 06/15/2013 Hospital Encounter HX [facility] Tony Landaverde M.D. 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 - 06/15/2013 10:13 AM CDT [id number] CHIEF COMPLAINT/REASON FOR VISIT OB followup. Complete OB examination. HISTORY OF PRESENT ILLNESS Narinder is a 32-year-old, 1, para 0, female at 35+4 weeks by 8+0 week ultrasound, who presentsfor OB followup and complete OB examination today. Narinder was recently seen on Women's Health with concerns about a urinary tract infection. She describes pain with urination. She has had urinary symptoms throughout the and has been evaluated multiple times with urinalysis and urine culture which have returned negative. Urinalysis was negative at the time of her Women's Health Unit visit as well. Otherwise she is doing fairly well today. Positive movement. No contractions, vaginal bleeding, or leakage of fluid. She continues to have occasional nausea and leaking urine. She states that she is scheduled to start a new job at about 2 p.m. today. However, she wonders how she is going todo this as she is far along in her . MEDICATIONS See EMR. ALLERGIES See EMR. SYSTEMS REVIEW GENERAL: No fevers, chills, fatigue, unintentional weight loss or weight gain. HEENT: No changes in vision or hearing, no sore throat or nasal congestion. CARDIOVASCULAR: No chest pain, irregular heartbeat or racing heart. RESPIRATORY: No shortness of breath, cough or wheeze. GASTROINTESTINAL: Positive for occasional nausea. No vomiting, diarrhea, constipation or abdominal pain. GENITOURINARY: Positive for leaking urine. No pain or burning with urination, no irregular vaginal bleeding, heavy periods, painful periods, abnormal vaginal discharge, leaking stool or gas. SKIN: No rashes or skin lesions.BREASTS: No masses or lumps, no discharge from the nipples. NEURO: No difficulty with memory, numbness, tingling, falls. PSYCHIATRIC: Positive for difficulty sleeping. No anxiety or depression. ENDOCRINE: Positive for heat intolerance related to . No cold intolerance, excessive thirst or hairloss. COMPLICATIONS OF 1. Scant care. 2. Latent tuberculosis - not treated. VITAL SIGNS See EMR. PHYSICAL EXAMINATION GENERAL: Well nourished female in no acute distress. SKIN: No rashes or lesions. HEAD: Normocephalic, atraumatic. EYES: Sclerae without injection or icterus. ENT: Tympanic membranes pearly white bilaterally, with positive light reflex. Nasal turbinates nonerythematous or edematous. Posterior oropharynx without erythema or exudates. Good dentition. LYMPH NODES: Neck supple. No cervical, supraclavicular or axillary lymphadenopathy. THYROID: No thyromegaly. BREASTS: Symmetric bilaterally. No lesions or dimpling of the skin noted. No dominant masses palpable. Nipples without inversion or drainage. HEART: Regular rate and rhythm. No murmurs, rubs or gallops. LUNGS: Breathing nonlabored. Chest clear to auscultation bilaterally. No wheezes or rales. ABDOMEN: Gravid, fundal height 36 cm, nontender, normoactive bowel sounds, heart tones 130s, fetus vertex by Bobby's. RECTUM: No external hemorrhoids noted. GENITALIA: External genitalia with evidence of a type 1 female circumcision. Normal pubic hair distribution. No other lesions or abnormalities of the external genitalia noted. Urethral meatus normal inlocation and appearance, without masses. Vaginal mucosa pink and moist, with a small amount of thin,clear discharge present in the posterior vaginal fornix. Cervix appears nulliparous and is visually closed. On bimanual examination, the cervix is closed, long, high, posterior. The uterus is 36 weeks'size and nontender. SPINE: No spinal, paraspinal or CVA tenderness. EXTREMITIES: Lower extremities nontender. Trace edema, bilateral lower extremities. GAIT: Normal. MENTAL: Alert and oriented times three. Affect pleasant. Mood happy. NEURO: Cranial nerves II through XII grossly intact. Reflexes 2+ at patellas. IMPRESSION/REPORT/PLAN A 32-year-old, 1, para 0, female at 35+4 weeks by 8+0 week ultrasound, who presents for OB followup and complete obstetric examination today. 1. care. The patient's complete OB examination was performed today since it has not been performed yet in this . Examination was within normal limits. Other issues addressed today include selecting a care provider, and the patient is not yet sure who she would like to care for the baby when it is born. Also she plans to both breast and bottle feed. 2. History of urinary frequency, incontinence, dysuria and nocturnal enuresis. As noted above, urinalysis and urine culture have been performed several times in this and have always been normal. The patient can follow up with Urology after delivery if she continues to have urinary issues. 3. Gastroesophageal reflux disease. I gave the patient a prescription for omeprazole at the time of the last visit, and she is doing better with this. 4. Difficult social situation. The patient was fired from her job and has been charged with assault.She reported at the time of the last visit that she needs to appear in court for this. She is starting a new job today but wonders how she is going to do this given her stage of . She wonders how she can work 2 jobs. These are both part-time jobs. She was counseled that is not an illness and that it is safe for her to continue working until delivery. She will need to take some timeoff of work at the time of delivery. 5. Latent tuberculosis. The patient reported at the time of the last visit that she was not able to tolerate therapy. She was counseled on the need for 9 months of therapy. Since she is so close to delivery at this time, I will refer her to Primary Care once she has delivered to discuss treatment for this latent tuberculosis. 6. Followup. The patient will return in 1 week for OB followup. If she has any questions or concernsprior to that time, she should call the clinic. Administrative billing: Greater than 50% of this 50-minute visit was spent in counseling the patient. Katy Landaverde M.D./scott Electronically Signed By: KATY LANDAVERDE MD On: 07/19/2013 01:09 PM Source: [facility] MHSDOLBEYNONRADSYS Document Id: [id number] documented in this encounter Miscellaneous Notes Miscellaneous - Katy Landaverde M.D. - 06/17/2013 7:05 PM CDT Results Notification Document Contains Addenda Addendum by FRANCINE CARTY on 19 Jun 2013 13:09:04 CDT Added to chart. From: KATY LANDAVERDE MD Sent: 06/17/2013 19:05:50 CDT ! Show up: 06/17/2013 19:05:50 CDT Subject: Results Notification Actions: Note to Nurse Reminder Comments: Please add results to chart. Results: Date Result Type Ind Result Name MBO Review Strep B by PCR Source: [facility] POWERCHART Document Id: [id number] Electronically signed by Obdulio [facility] [employer] Systems Administrator [id number] at 07/06/2016 5:49 AM CDT Katy Blackwood M.D. - 06/17/2013 7:05 PM CDT Results Notification Document Contains Addenda Addendum by FRANCINE CARTY on 19 Jun 2013 13:10:21 CDT Added to chart. From: KATY LANDAVERDE MD Sent: 06/17/2013 19:05:29 CDT ! Show up: 06/17/2013 19:05:29 CDT Subject: Results Notification Actions: Note to Nurse Reminder Comments: Please add results to chart. Results: Date Result Name Value Ref Range 06/15/2013 10:45 C trach Amp Src-Boyle ENDOCERVICAL 06/15/2013 10:45 C trach Amp RNA-Boyle Negative (Negative - ) 06/15/2013 10:45 N gonor Amp DNA-Boyle Negative (Negative - ) 06/15/2013 10:45 N gonvincenzo Amp Src-Boyle ENDOCERVICAL Source: [facility] POWERCHART Document Id: [id number] Electronically signed by Conversion, [facility] [employer] Systems Administrator [id number] at 07/06/2016 5:49 AM CDT Katy Blackwood M.D. - 06/15/2013 10:43 AM CDT Ambulatory Patient Summary [facility] [address] [place] [id number] Visit Information Name: NARINDER LUCAS [facility] Number: [id number] Visit Date: 06/15/2013 10:43:55 Attending Provider: KATY LANDAVERDE MD Primary Care [...] the Following Medications: Medication list as of 06-15-13 10:43 Attention: If you have any medications at [...] Electronically Signed By: KATY LANDAVERDE MD Signed On:15-JUN-2013 10:43:35 Additional Information: Source: [facility] POWERCHART Document Id: [id number] Miscellaneous - Katy Landaverde M.D. - 06/15/2013 10:43 AM CDT Ambulatory Discharge Medication List [address] [id number] Visit Information Name: TRAVIS NARINDERNIVIA [place] [facility] Number: [id number] Visit Date: 06/15/2013 10:43:53 Attending Provider: KATY LANDAVERDE MD Primary Care [...] the Following Medications: Medication list as of 06-15-13 10:43 Attention: If you have any medications at [...] Electronically Signed By: KATY LANDAVERDE MD Signed On:15-JUN-2013 10:43:35 Additional Information: Source: [facility] BMP [employer] Document Id: [id number] Miscellaneous - Mackenzie Barahona RNeha - 06/15/2013 10:17 AM CDT 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/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 Entered On: 06/15/2013 10:17 CDT Performed On: 06/15/2013 10:17 CDT by MACKENZIE BECKWITH Intake Chief Complaint : OB visit 35 4/7 weeks Systolic Blood Pressure : 122 mmHg Diastolic Blood Pressure : 72 mmHg NIBP Mean : 89 mmHg BP Location : Left upper extremity Blood Pressure Cuff Size : Regular Actual Weight : 116.5 kg(Converted to: 256 lb 13 oz) Dosing Weight Clinic : 116.5 kg MACKENZIE BECKWITH - 06/15/2013 10:17 CDT General Info Languages : Egyptian MACKENZIE BECKWITH - 06/15/2013 10:17 CDT Subjective Pain Symptoms : No MACKENZIE BECKWITH - 06/15/2013 10:17 CDT Dependent Habits Tobacco Use/Currently Using : No Exposure to Tobacco Smoke : Other: never Smoking Status : Never smoker MACKENZIE BECKWITH - 06/15/2013 10:17 CDT Caffeine Use Grid Caffeine Use : Current Type : Chocolate, Coffee, Soft drinks, Tea Frequency : Daily MACKENZIE BECKWITH - 06/15/2013 10:17 CDT Source: [facility] BMP [employer] Document Id: [id number] CDT!23 documented in this encounter Plan of Treatment Upcoming Encounters Date Type Specialty Care Team Description 11/09/2021 Office Visit Family Medicine Fadia Merchant M.D. [address] [place] [phone] (Wo rk) 11/10/2021 Office Visit Family Medicine Zacarias Sarabia M.B.B.S., M.D. [address] [place] [phone] (Wo rk) 11/11/2021 Comprehensive Visit Orthopedic Surgery Ivan Deng M.D. [address] [place], [place] [phone] (Wo rk) documented as of this encounter Procedures Procedure Name Priority Date/Time Associated Diagnosis Comme nts N GONOR AMP SRC Routine 06/15/2013 10:45 AM Resul ts for this CDT procedure are i n the results section. N GONOR AMP DNA Routine 06/15/2013 10:45 AM Resul ts for this CDT procedure are i n the results section. C TRACH AMP SRC Routine 06/15/2013 10:45 AM Resul ts for this CDT procedure are i n the results section. C TRACH AMP RNA Routine 06/15/2013 10:45 AM Resul ts for this CDT procedure are i n the results section. HXSTREP GROUP B BY Routine 06/15/2013 10:45 AM Re sults for this PCR CDT procedure are i n the results section. documented in this encounter Results HX-N gonor Amp DNA (06/15/2013 10:45 AM CDT) P athologist Signature HXN gonor Amp Negative POWERCHART DNA-Boyle Specimen (Source) Anatomical Collection Method Collection Time Re ceived Time Location / / Volume Laterality 06/15/2013 10:45 AM CDT Narrative POWERCHART - 06/16/2013 9:30 PM CDT Test Performed by: [address] [id number] Endoscopy Technician: Drew choi III, M.D. Katy Landaverde M.D. LAB HISTORICAL ORDERS Performing Organization Address City/State/[facility] Code Phon e Number POWERCHART HX-N gonor Amp Src (06/15/2013 10:45 AM CDT) [facility] gist Method Time Signature HXN gonor Amp ENDOCERVICAL POWERCHART [facility] Specimen (Source) Anatomical Collection Method Collection Time Re ceived Time Location / / Volume Laterality 06/15/2013 10:45 AM CDT Katy Landaverde M.D. LAB HISTORICAL ORDERS Performing Organization Address City/State/ZIP Code Phon e Number POWERCHART HX-C trach Amp RNA (06/15/2013 10:45 AM CDT) [facility] gist Method Time Signature Chlamydia Negative POWERCHART trachomatis amplified RNA Specimen (Source) Anatomical Collection Method Collection Time Re ceived Time Location / / Volume Laterality 06/15/2013 10:45 AM CDT Katy Landaverde M.D. LAB HISTORICAL ORDERS Performing Organization Address City/State/ZIP Code Phon e Number POWERCHART HX-C trach Amp Src (06/15/2013 10:45 AM CDT) [facility] Method Time Signature HXC trach Amp ENDOCERVICAL POWERCHART [facility] Specimen (Source) Anatomical Collection Method Collection Time Re ceived Time Location / / Volume Laterality 06/15/2013 10:45 AM CDT Katy Landaverde M.D. LAB HISTORICAL ORDERS Performing Organization Address City/State/ZIP Code Phon e Number POWERCHART HXSTREP GROUP B BY PCR (06/15/2013 10:45 AM CDT) [facility] Method Time Signature HXStrep Group POWERCHART B by PCR HXFinal Negative for POWERCHART Group B Strep by PCR. Specimen (Source) Anatomical Collection Method Collection Time Re ceived Time Location / / Volume Laterality Vaginal/Rectum 06/15/2013 10:45 AM CDT Katy Landaverde M.D. LAB HISTORICAL ORDERS Performing Organization Address City/State/ZIP Code Phon e Number POWERCHART documented in this encounter Visit Diagnoses Not on filedocumented in this encounter Additional Health Concerns Assessment Noted Time PHQ-9 Depression Total Score: 7 04/12/2013 5:31 PM TECHNICAL SUPPORT REPRESENTATIVE documented as of this encounter
--- OUTSIDE RECORDS SUMMARY | 2021-11-07 19:46 | XMS_ITS | Encounter Summary ---
:1980 Author Organization [facility] Address [address] [place] [address] Care Team Providers Name Role Phone Unavailable Primary Care Provider Unavailable Encounter Details Date Type Department Care Team Description 05/22/2013 Hospital Encounter HX [facility] Gerry Hernandez M.D. [address] [place] [phone] (Andrew ramirez) Social History Tobacco Use Types Packs/Day Years Used Date Smoking Tobacco: Never Assessed Sex Assigned at Date Recorded Not on file documented as of this encounter Plan of Treatment Upcoming Encounters Date Type Specialty Care Team Description 11/09/2021 Office Visit Family Medicine Fadia Merhcant M.D. [address] [place] [phone] (Wo rk) 11/10/2021 Office Visit Family Medicine Zacarias Sarabia M.B.B.S., M.D. [address] [place] [phone] (Wo rk) 11/11/2021 Comprehensive Visit Orthopedic Surgery Ivan Deng M.D. [address], [place] [phone] (Wo rk) documented as of this encounter Procedures Procedure Name Priority Date/Time Associated Diagnosis Comme nts HXDRUG COLLECTION, Routine 05/22/2013 3:27 PM Res ults for this URINE CDT procedure are i n the results section. documented in this encounter Results HXDRUG COLLECTION, URINE (05/22/2013 3:27 PM CDT) [facility] gist Method Time Signature HXU Drug See Report POWERCHART Screen Specimen (Source) Anatomical Collection Method Collection Time Re ceived Time Location / / Volume Laterality Urine 05/22/2013 3:27 PM CDT Gerry Hernandez M.D. 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
--- OUTSIDE RECORDS SUMMARY | 2021-11-07 19:46 | XMS_ITS | Encounter Summary ---
:1980 Author Organization [facility] Address [address] [place] [address] Care Team Providers Name Role Phone Unavailable Primary Care Provider Unavailable Encounter Details Date Type Department Care Team Description 06/15/2013 Hospital Encounter HX NO MAPPING Nickolas Salas M.D. [address], [place] [phone] (Wo rk) Social History Tobacco Use Types Packs/Day Years Used Date Smoking Tobacco: Never Assessed Sex Assigned at Date Recorded Not on file documented as of this encounter Plan of Treatment Upcoming Encounters Date Type Specialty Care Team Description 11/09/2021 Office Visit Family Medicine Fadia Merchant M.D. [address] [place] [phone] (Wo rk) 11/10/2021 Office Visit Family Medicine Zacarias Sarabia M.B.B.S., M.D. [address] [place] [phone] (Wo rk) 11/11/2021 Comprehensive Visit Orthopedic Surgery Ivan Deng M.D. 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
--- OUTSIDE RECORDS SUMMARY | 2021-11-07 19:46 | XMS_ITS | Encounter Summary ---
:1980 Author Organization [facility] Address [address] [place] [address] Care Team Providers Name Role Phone Unavailable Primary Care Provider Unavailable Encounter Details Date Type Department Care Team Description 05/02/2013 Hospital Encounter HX [facility] Margarito Soto M .D. 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 - 05/02/2013 3:33 PM CDT [id number] CHIEF COMPLAINT/REASON FOR VISIT Acute OB visit. HISTORY OF PRESENT ILLNESS This patient is a 32-year-old G1, P0 female with LMP of 09/23/2012 and EDC of 07/17/2013 at 29-1/7 week. Patient presents for acute OB visit. The patient presents for followup from Labor and Delivery. She was seen at [facility] Labor and Delivery on 04/30/2013 with some pelvic pain symptoms. She was found to have a reactive nonstress test with good variability and no contractions. She declined a cervical check. Her urinalysis was negative and it was thought that she had round ligament strain. The patient was discharged home undelivered with routine recommendations. The patient went home.She stated her symptoms continued so she went to [facility] and was seen in Labor and Delivery on 05/01/2013 with lower abdominal pain complaints as well as some urinary frequency. These records are not available for my review. She reports that [facility] told her that she might have an early bladder infection and that she had some blood in her urine and that she should be evaluated by her primary provider. Patient reports she was having no contractions and she reports that they did not check her cervix. The patient now presents to clinic today for an acute visit for followup from [facility] requesting evaluation of her abdominal pain and hematuria. The patient is not sure she is feeling the baby move. She is not sure if she has ever felt the baby move. She feels something but is not sure if that is her baby or not. She denies leaking of fluid. She denies vaginal bleeding. She denies menstrual type cramping. She denies sharp pelvic pain. She denies difficulty urinating. No dysuria. No hematuria. No flank pain. No change in bowel habits. The patient does report urinary frequency that has gotten worse over the last month but denies any dysuria symptoms. She denies burning with urination. The patient does complain of lower abdominal painthat radiates down to her groin into her bilateral upper thighs that is worse with activity and standing. These symptoms improve when she is off her feet and rests. This has been ongoing for several weeks. No fevers or chills. Allergies are no known drug allergies. MEDICATIONS vitamins. PAST MEDICAL/SURGICAL HISTORY 1. Vitamin D deficiency. 2. Dysthymic disorder. 3. Urinary incontinence. 4. Obesity. 5. GERD. PAST OBSTETRICAL HISTORY None. VITAL SIGNS Weight 116.7 kg. Blood pressure 117/72. Pulse 70. Temperature 36.8. Height not performed. PHYSICAL EXAMINATION GENERAL: Well-developed, well-nourished, obese gravid female in no apparent distress. Alert and oriented times 3. Normal affect. ABDOMEN: Obese, gravid, soft and nontender. Fundal height is 28 cm. Positive heart tones at 154. Vertex presentation by Jamesds. SPINE: No CVA tenderness bilaterally. EXTREMITIES: No edema or tenderness. GENITAL EXAM: Declined by patient. LAB: 05/02/2013 Urinalysis negative. Urine culture pending. IMPRESSION/REPORT/PLAN 1. Intrauterine at 29-1/7 weeks. Positive cardiac activity. 2. Estimated date of confinement of 07/17/2013 by patient. 3. Obesity. 4. Suspect round ligament strain of . 5. Urinary frequency suspect normal urinary frequency in . PLAN: 1. Reassurance was given to the patient. 2. I discussed round ligament strain with the patient. We discussed symptomatic relief measures withthe patient. I encouraged fluids and hydration. I encouraged Tylenol. I discussed the use of heat and heating pads. I discussed warm bath. I discussed massage. 3. I discussed support belt. 4. I offered to check the patient's cervix to make sure she was not having any contractions. At [facility] on 04/30/2013 she had no contractions on nonstress test. She reports no contractions at [facility] yesterday and she reports that she had no cervical check. These records are not available for my review. The patient declines cervical check today. 5. I reviewed with the patient that she has a long history of urinary incontinence and difficulty with her bladder. I reviewed with the patient that her urinary frequency is expected and normal at thispart of the as her uterus is growing and pushing down on her bladder. The patient's urinalysis appears normal. I will send out for urine culture to make sure there is no bacteria. 6. I would like the patient to keep her scheduled appointment with Dr. Katy Salas next weekfor OB visit and diabetic screen. The patient no-showed her visit last week with her primary provider, Dr. Salas. 7. I discussed diabetic screen and Glucola with the patient. The patient has already been given instructions by Dr. Salas. 8. Routine OB precautions, recommendations, and instructions are reviewed with the patient includingfetal movement and kick counts. 9. labor precautions are reviewed with the patient. 10. I spent 30 minutes face to face time with the patient with over 50% of that time spent in counseling. Margarito Soto M.D./ray Electronically Signed By: MARGARITO SOTO MD On: 05/02/2013 05:08 PM Source: [facility] MHSDOLBEYNONRADSYS Document Id: [id number] documented in this encounter Procedure Notes Beronica Calvert L.P.N. - 05/02/2013 3:55 PM CDT Urine Dipstick Urine Dipstick Entered On: 05/02/2013 15:55 CDT Performed On: 05/02/2013 15:55 CDT by BERONICA CALVERT Urine Dipstick UA Color POC : Yellow UA Appear POC : Clear UA Leuk POC : Negative UA Nitrite POC : Negative UA Urobilinogen POC : 0.2 mg/dl UA Protein POC : Trace UA pH POC : 6.0 UA Blood POC : Negativ UA Spec Grav POC : 1.030 UA Ketones POC : Negative UA Bili POC : Negative UA Glucose POC : Negative BERONICA CALVERT - 05/02/2013 15:55 CDT Source: [employer] Document Id: [id number] CDT!14 documented in this encounter Miscellaneous Notes Miscellaneous - Margarito Soto M.D. - 05/02/2013 4:16 PM CDT Ambulatory Patient Summary [address] [id number] Visit Information Name: NARINDER LUCAS [facility] Number: [id number] Current Date: 05/02/2013 16:16:28 Physicians Attending Provider: MARGARITO SOTO MD Primary Care Provider: PCP, UNASSIGNED - [...] Heartburn multivitamin (multivitamin) Oral, once a day Stop Taking the Following Medications: Medication list as of 05-02-13 16:16 Attention: If you have any medications at home that are not on this list, DO NOT take them until youcontact your provider for clarification. Give a copy of your medication list to your primary care provider. Update your medication list any time medications or doses are changed and carry your medication list at all times in case of emergency. Your Allergies & Intolerances Substance Reaction Symptoms [...] Upcoming Appointments Date Time Location Reason Provider 05/03/2013 08:45 [facility] 05/11/2013 09:40 [facility] PHYSICAL GEOGRAPHER ob Katy Salas MD Attention: Contact your local Clinic if further appointment detail needed. Your Goals/Additional instructions: Source: [facility] POWERCHART Document Id: [id number] Miscellaneous - Margarito Soto M.D. - 05/02/2013 4:16 PM CDT Ambulatory Discharge Medication List [address] [id number] Visit Information Name: TRAVISNARINDER [facility] Number: [id number] Visit Date: 05/02/2013 16:16:27 Attending Provider: MARGARITO SOTO MD Primary Care Provider: PCP, UNASSIGNED - [...] Heartburn multivitamin (multivitamin) Oral, once a day Stop Taking the Following Medications: Medication list as of 05-02-13 16:16 Attention: If you have any medications at home that are not on this list, DO NOT take them until youcontact your provider for clarification. Give a copy of your medication list to your primary care provider. Update your medication list any time medications or doses are changed and carry your medication list at all times in case of emergency. Additional Information: Source: [facility] [employer] Document Id: [id number] Miscellaneous - Beronica Calvert L.P.N. - 05/02/2013 3:39 PM CDT Adult Disability Services Coordinator Intake/History Adult Disability Services Coordinator Intake/History Entered On: 05/02/2013 15:40 CDT Performed On: 05/02/2013 15:39 CDT by BERONICA CALVERT Intake Chief Complaint : OB visit 29 + 1 weeks Systolic Blood Pressure : 117 mmHg Diastolic Blood Pressure : 72 mmHg NIBP Mean : 87 mmHg BP Location : Right upper extremity Blood Pressure Cuff Size : Regular Actual Weight : 116.7 kg(Converted to: 257 lb 4 oz) Weight Source : Standing scale Dosing Weight Clinic : 116.7 kg BERONICA CALVERT - 05/02/2013 15:39 CDT General Info Languages : Hebrew BERONICA CALVERT - 05/02/2013 15:39 CDT Subjective Pain Symptoms : No BERONICA CALVERT - 05/02/2013 15:39 CDT Dependent Habits Tobacco Use/Currently Using : No Exposure to Tobacco Smoke : Other: never Smoking Status : Never smoker BERONICA CALVERT - 05/02/2013 15:39 CDT Caffeine Use Grid Caffeine Use : Current Type : Chocolate, Coffee, Soft drinks, Tea Frequency : Daily BERONICA CALVERT - 05/02/2013 15:39 CDT Source: [facility] [employer] Document Id: [id number] CDT!24 documented in this encounter Plan of Treatment Upcoming Encounters Date Type Specialty Care Team Description 11/09/2021 Office Visit Family Medicine Fadia Merchant M.D. [address] [place] [phone] (Wo rk) 11/10/2021 Office Visit Family Medicine Zacarias Sarabia M.B.B.S., M.D. [address] [place] [phone] (Wo rk) 11/11/2021 Comprehensive Visit Orthopedic Surgery Ivan Deng M.D. [address] [facility], [place] [phone] (Wo rk) documented as of this encounter Procedures Procedure Name Priority Date/Time Associated Comments Diagnosis DIPSTICK, POCT, U Routine 05/02/2013 3:55 PM Resu lts for this (NURSING) INTERFACED CDT procedu re are in the results section. BACTERIAL CULTURE, Routine 05/02/2013 3:48 PM Res ults for this AEROBIC, URINE CDT procedure are in the results section. documented in this encounter Results Dipstick, POCT, Urine (nursing) (05/02/2013 3:55 PM CDT) [facility] Method Time Signature Color Yellow POWERCHART Appearance Clear POWERCHART Leukocytes, Negative POWERCHART POCT, U Nitrites, POCT, Negative POWERCHART U Urobilinogen, 0.2 mg/dl POWERCHART POCT, Urine Protein, POCT, Trace POWERCHART U pH, POCT, Urine 6.0 5.0 - 9.0 POWERCHART Blood, POCT, U Negativ POWERCHART Specific 1.030 1.000 - POWERCHART [place], POCT, 1.030 U Ketone, POCT, U Negative POWERCHART Bilirubin, Negative POWERCHART POCT, U Glucose, POCT, Negative POWERCHART U Specimen (Source) Anatomical Collection Method Collection Time Re ceived Time Location / / Volume Laterality 05/02/2013 3:55 PM CDT Margarito Soto M.D. LAB POCT ORDERABLES - DEVICE Performing Organization Address City/State/ZIP Code Phon e Number POWERCHART Bacterial Culture, Aerobic, Urine (05/02/2013 3:48 PM CDT) [facility] gist Method Time Signature Bacterial POWERCHART Culture, Aerobic, Urine HXFinal See POWERCHART scanned/paper report. Test performed at [facility]. Specimen (Source) Anatomical Collection Method Collection Time Re ceived Time Location / / Volume Laterality Urine, Clean 05/02/2013 3:48 PM Catch CDT Margarito Soto M.D. 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
--- OUTSIDE RECORDS SUMMARY | 2021-11-07 19:46 | XMS_ITS | Encounter Summary ---
:1980 Author Organization [facility] Address [address] [place] [address] Care Team Providers Name Role Phone Unavailable Primary Care Provider Unavailable Encounter Details Date Type Department Care Team Description 07/26/2013 Hospital Encounter HX [facility] Tony Landaverde M.D. [address] [place], [place] [phone] (Wo rk) Social History Tobacco Use Types Packs/Day Years Used Date Smoking Tobacco: Never Assessed Sex Assigned at Date Recorded Not on file documented as of this encounter Last Filed Vital Signs Vital Sign Reading Time Taken Comments Blood Pressure 106/62 07/26/2013 2:32 PM CDT Pulse - - Temperature - - Respiratory Rate - - Oxygen Saturation - - Inhaled Oxygen Concentration - - Weight 120 kg (264 lb 1.8 oz) 07/26/2013 2:32 PM CDT Height 172 cm (5' 7.72) 07/26/2013 2:32 PM CDT Body Mass Index 40.49 07/26/2013 2:32 PM CDT documented in this encounter Progress Notes Katy Landaverde M.D. - 07/26/2013 2:16 PM CDT [id number] CHIEF COMPLAINT/REASON FOR VISIT OB followup. HISTORY OF PRESENT ILLNESS Narinder is a 32-year-old 1, para 0 female at 40+5 weeks by 8+0 week ultrasound, who presents for OB followup today. Overall, she is doing well at this time. She continues to have significant lower extremity edema. She reports decreased movement today, though she is still feeling the baby move. Positive for contractions, but none that are regular or painful. No vaginal bleeding or leakage of fluid. [...] Scant care. 2. Latent tuberculosis, not treated. PHYSICAL EXAMINATION VITAL SIGNS: See EMR. GENERAL: Well-nourished female, in no acute distress. ABDOMEN: Gravid, fundal height 40 cm, heart tones 140s, fetus vertex by Bobby. LOWER EXTREMITIES: Nontender, 2+ edema bilateral lower extremities. PELVIC: Cervix closed/long/high. IMPRESSION/REPORT/PLAN A 32-year-old 1, para 0 female at 40+5 weeks by 8+0 week ultrasound, who presents for OB followup today. 1. care. issues addressed today include post-term counseling. Reasons to present to Women's Health were also discussed with the patient. 2. History of urinary frequency, incontinence, dysuria and nocturnal enuresis: This has been evaluated on multiple occasions with urinalysis and urine culture, which have always been normal. The patient does not complain of this today. We will plan follow up with Urology in the period if she continues to have issues. 3. Gastroesophageal reflux disease: Well managed with omeprazole. 4. Difficult social situation: The patient has been attached with one of the [facility], and she has received many items for the baby through the Center and much support. She has also been in touch with [facility]. She has been hopeful for education purposes as well. She will continue to stay in touch with these contacts. 5. Latent tuberculosis: The patient will need to be treated in the period. 6. Decreased movements: Nonstress test was performed today and was reactive. 7. Followup: The patient will return in 3 days for cervical ripening and induction of labor. aKty Landaverde M.D./scott Electronically Signed By: KATY LANDAVERDE MD On: 08/27/2013 08:27 AM Source: [facility] MHSDOLBEYNONRADSYS Document Id: [id number] documented in this encounter Procedure Notes Francine Calvert L.PEliseoNEliseo - 07/26/2013 2:46 PM CDT Urine Dipstick Urine Dipstick Entered On: 07/26/2013 14:46 CDT Performed On: 07/26/2013 14:46 CDT by FRANCINE CALVERT Urine Dipstick UA Color POC : Yellow UA Appear POC : Clear UA Protein POC : 1+ (30 mg/dl) UA Glucose POC : Negative FRANCINE CALVERT - 07/26/2013 14:46 CDT Source: [facility] POWERCHART Document Id: [id number] CDT!6 Katy Landaverde M.D. - 07/26/2013 12:00 AM CDT 2RPT NST PROCEDURE NOTE INDICATIONS A 32-year-old, 1, para 0, female at 40 + 5 weeks by 8 + 0 week ultrasound, who presented forOB followup today and had complaints of decreased movement. Therefore, NST was recommended. PROCEDURE heart tones: Baseline 145, moderate variability, reactive, with acoustic stim, no decelerations. Tocometer: Occasional irregular contractions every 3 to 8 minutes. IMPRESSION Reactive nonstress test. Katy Landaverde M.D./scott Electronically Signed By: KATY LANDAVERDE MD On: 08/27/2013 08:30 AM Source: [facility] MHSDOLBEYNONRADSYS Document Id: [id number] documented in this encounter Miscellaneous Notes Miscellaneous - Katy Landaverde M.D. - 07/28/2013 1:06 PM CDT Ambulatory Patient Summary [address] [id number] Visit Information Name: TRAVIS NARINDERNIVIA [place] [facility] Number: [id number] Visit Date: 07/28/2013 13:06:50 Attending Provider: KATY LANDAVERDE MD Primary Care Provider: PCP, UNASSIGNED - NARINDER DIXON has been given the following list of [...] the Following Medications: Medication list as of 07-28-13 13:06 Attention: If you have any medications at [...] Electronically Signed By: KATY LANDAVERDE MD Signed On:28-JUL-2013 13:06:45 Additional Information: Source: [facility] POWERCHART Document Id: [id number] [place] - Katy Landaverde M.D. - 07/28/2013 1:06 PM CDT Ambulatory Discharge Medication List [address] [id number] Visit Information Name: NARINDER LUCAS [facility] Number: [id number] Visit Date: 07/28/2013 13:06:49 Attending Provider: KATY LANDAVERDE MD Primary Care [...] the Following Medications: Medication list as of 07-28-13 13:06 Attention: If you have any medications at [...] Electronically Signed By: KATY LANDAVERDE MD Signed On:28-JUL-2013 13:06:45 Additional Information: Source: [facility] POWERCHART Document Id: [id number] [place] - Francine Calvert L.P.N. - 07/26/2013 2:32 PM CDT Adult Medical Massage Therapist Intake/History Document Has Been Updated Adult Medical Massage Therapist Intake/History Entered On: 07/26/2013 14:33 CDT Performed On: 07/26/2013 14:32 CDT by FRANCINE CALVERT Intake Chief Complaint : OBFU 40 + 5 weeks LMP Date : 09/23/2012 Systolic Blood Pressure : 106 mmHg Diastolic Blood Pressure : 62 mmHg NIBP Mean : 77 mmHg BP Location : Right upper extremity Blood Pressure Cuff Size : Large Height : 172 cm(Converted to: 5 ft 8 inch(es), 68 inch(es)) Actual Weight : 119.8 kg(Converted to: 264 lb 2 oz) Weight Source : Standing scale Dosing Weight Clinic : 119.8 kg Clinic BSA : 2.39 Body Mass Index : 40.49 kg/m2 MACHELLEVAISHALIFRANCINE L - 07/26/2013 14:32 CDT General Info Languages : Kazakh MACHELLE FRANCINE Thakur - 07/26/2013 14:32 CDT Subjective Pain Symptoms : No FRANCINE CALVERT - 07/26/2013 14:32 CDT Dependent Habits Tobacco Use/Currently Using : No Exposure to Tobacco Smoke : Other: never Smoking Status : Never smoker FRANCINE CALVERT - 07/26/2013 14:32 CDT Caffeine Use Grid Caffeine Use : Current Type : Chocolate, Coffee, Soft drinks, Tea Frequency : Daily FRANCINE CALVERT - 07/26/2013 14:32 CDT Allergy (As Of: 07/26/2013 14:33:56 CDT) Allergies (Active) NKA Estimated Onset Date: Unspecified ; Created By: ODALIS BORRERO; Reaction Status: Active ; Category: Drug ; Substance: NKA ; Type: Allergy ; Updated By: ODALIS BORRERO; Reviewed Date: 07/26/2013 14:32 CDT Source: [facility] POWERCHART Document Id: [id number] CDT!28 documented in this encounter Plan of Treatment Upcoming Encounters Date Type Specialty Care Team Description 11/09/2021 Office Visit Family Medicine Fadia Merchant M.D. [address] [place] [phone] (Wo rk) 11/10/2021 Office Visit Family Medicine Zacarias Sarabia M.B.B.S., M.D. [address] [place] [address] MARIBETH Slaughter [phone] (Wo rk) 11/11/2021 Comprehensive Visit Orthopedic Surgery Ivan Deng M.D. [address] [facility], [place] [phone] (Wo rk) documented as of this encounter Procedures Procedure Name Priority Date/Time Associated Comments Diagnosis DIPSTICK, POCT, U Routine 07/26/2013 2:46 PM Resu lts for this (NURSING) INTERFACED CDT procedu re are in the results section. documented in this encounter Results Dipstick, POCT, Urine (nursing) (07/26/2013 2:46 PM CDT) [facility] gist Method Time Signature Color Yellow POWERCHART Appearance Clear POWERCHART Protein, POCT, 1+ (30 POWERCHART U mg/dl) Glucose, POCT, Negative POWERCHART U Specimen (Source) Anatomical Collection Method Collection Time Re ceived Time Location / / Volume Laterality 07/26/2013 2:46 PM CDT Katy Landaverde M.D. 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
--- OUTSIDE RECORDS SUMMARY | 2021-11-07 19:46 | XMS_ITS | Encounter Summary ---
:1980 Author Organization [facility] Address [address] [place] [address] Care Team Providers Name Role Phone Unavailable Primary Care Provider Unavailable Encounter Details Date Type Department Care Team Description 07/19/2013 Hospital Encounter HX [facility] Tony Landaverde M.D. [address] [place], [place] [phone] (Wo rk) Social History Tobacco Use Types Packs/Day Years Used Date Smoking Tobacco: Never Assessed Sex Assigned at Date Recorded Not on file documented as of this encounter Last Filed Vital Signs Vital Sign Reading Time Taken Comments Blood Pressure 126/82 07/19/2013 11:18 AM CDT Pulse - - Temperature - - Respiratory Rate - - Oxygen Saturation - - Inhaled Oxygen Concentration - - Weight 118 kg (260 lb 9.3 oz) 07/19/2013 11:18 AM CDT Height - - Body Mass Index 40.19 06/26/2013 2:20 PM CDT documented in this encounter Progress Notes Kristi Landaverde M.D. - 07/19/2013 11:09 AM CDT [id number] CHIEF COMPLAINT/REASON FOR VISIT OB followup. HISTORY OF PRESENT ILLNESS Narinder is a 32-year-old 1, para 0 female at 39+5 weeks by 8+0 week ultrasound who presents for OB followup today. Narinder is doing well at this time. She does complain of some left leg pain and continued lower extremity edema. Positive movement. Her contractions have decreased over the lastweek. She denies any vaginal bleeding or leakage of fluid. MEDICATIONS [...] Gravid, fundal height 40 cm, heart tones 150s, fetus vertex by Bobby's. LOWER EXTREMITIES: Nontender, 2+ edema bilateral lower extremities. PELVIC: Cervix closed/long/high. IMPRESSION/REPORT/PLAN A 32-year-old 1, parous 0 female at 39+5 weeks by 8+0 week ultrasound who presents for OB followup today. 1. care: No specific issues were addressed today. 2. History of urinary frequency, incontinence, dysuria, and nocturnal enuresis: This has been evaluated on multiple occasions with urinalysis and urine culture which have always been normal. The patient does not complain of this today. Plan Urology followup after delivery if she continues to have issues. 3. Gastroesophageal reflux disease: Well managed with omeprazole. 4. Difficult social situation: The patient has been in touch with 1 of the Crisis Centers and has received many items for the baby through this center. She has also been in touch with [facility] and they have been discussing some educational issues with her as well. She was encouraged to continue these contacts. 5. Latent tuberculosis: This will need to be treated in the period. 6. Left leg pain: The patient has bilateral lower extremity edema, but the legs appear symmetric, there is no increased warmth or calf tenderness. I think the left leg pain is likely musculoskeletal and related to . 7. Followup: One week. Kristi Landaverde M.D./scott Electronically Signed By: KRISTI LANDAVERDE MD On: 08/21/2013 01:33 PM Source: [facility] MHSDOLBEYNONRADSYS Document Id: [id number] documented in this encounter Procedure Notes Beronica Calvert LEliseoP.NEliseo - 07/19/2013 11:42 AM CDT Urine Dipstick Urine Dipstick Entered On: 07/19/2013 11:43 CDT Performed On: 07/19/2013 11:42 CDT by BERONICA CALVERT Urine Dipstick UA Color POC : Yellow UA Appear POC : Clear UA Protein POC : Trace UA Glucose POC : Negative BERONICA CALVERT - 07/19/2013 11:42 CDT Source: [facility] POWERCHART Document Id: [id number] CDT!6 documented in this encounter Miscellaneous Notes Miscellaneous - Kristi Landaverde M.D. - 07/22/2013 7:07 PM CDT Ambulatory Patient Summary [facility] [address] [place] [id number] Visit Information Name: NARINDER LUCAS [facility] Number: [id number] Visit Date: 07/22/2013 19:07:56 Attending Provider: KRISTI LANDAVERDE MD Primary Care [...] the Following Medications: Medication list as of 07-22-13 19:07 Attention: If you have any medications at [...] Electronically Signed By: KRISTI LANDAVERDE MD Signed On:22-JUL-2013 19:07:51 Additional Information: Source: [facility] POWERCHART Document Id: [id number] Miscellaneous - Kristi Landaverde M.D. - 07/22/2013 7:07 PM CDT Ambulatory Discharge Medication List [address] [id number] Visit Information Name: NARINDER LUCAS [facility] Number: [id number] Visit Date: 07/22/2013 19:07:55 Attending Provider: KRISTI LANDAVERDE MD Primary Care [...] the Following Medications: Medication list as of 07-22-13 19:07 Attention: If you have any medications at [...] Electronically Signed By: KRISTI LANDAVERDE MD Signed On:22-JUL-2013 19:07:51 Additional Information: Source: [facility] [employer] FoodCHART Document Id: [id number] Miscellaneous - Beronica Calvert, L.P.N. 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 Entered On: 07/19/2013 11:20 CDT Performed On: 07/19/2013 11:18 CDT by BERONICA CALVERT Intake Chief Complaint : OBFU 39 + 5 weeks LMP Date : 09/23/2012 Systolic Blood Pressure : 126 mmHg Diastolic Blood Pressure : 82 mmHg NIBP Mean : 97 mmHg BP Location : Right upper extremity Blood Pressure Cuff Size : Regular Actual Weight : 118.2 kg(Converted to: 260 lb 9 oz) Weight Source : Standing scale Dosing Weight Clinic : 118.2 kg BERONICA CALVERT - 07/19/2013 11:18 CDT General Info Languages : Bulgarian BERONICA CALVERT - 07/19/2013 11:18 CDT Subjective Pain Symptoms : No BERONICA CALVERT - 07/19/2013 11:18 CDT Dependent Habits Tobacco Use/Currently Using : No Exposure to Tobacco Smoke : Other: never Smoking Status : Never smoker BERONICA CALVERT - 07/19/2013 11:18 CDT Caffeine Use Grid Caffeine Use : Current Type : Chocolate, Coffee, Soft drinks, Tea Frequency : Daily BERONICA CALVERT - 07/19/2013 11:18 CDT Source: [facility] [employer]CHART Document Id: [id number] CDT!25 documented in this encounter Plan of Treatment Upcoming Encounters Date Type Specialty Care Team Description 11/09/2021 Office Visit Family Medicine Fadia Merchant M.D. [address] [place] [phone] (Wo rk) 11/10/2021 Office Visit Family Medicine Zacarias Sarabia M.B.B.S., M.D. [address] [place] [address] (Wo rk) 11/11/2021 Comprehensive Visit Orthopedic Surgery Ivan Deng M.D. [address] [place], [place] [phone] (Wo rk) documented as of this encounter Procedures Procedure Name Priority Date/Time Associated Comments Diagnosis DIPSTICK, POCT, U Routine 07/19/2013 11:42 AM Res ults for this (NURSING) INTERFACED CDT procedu re are in the results section. documented in this encounter Results Dipstick, POCT, Urine (nursing) (07/19/2013 11:42 AM CDT) Analysis Performed At Patho logist Time Signature Color Yellow POWERCHART Appearance Clear POWERCHART Protein, POCT, Trace POWERCHART U Glucose, POCT, Negative POWERCHART U Specimen (Source) Anatomical Collection Method Collection Time Re ceived Time Location / / Volume Laterality 07/19/2013 11:42 AM CDT Kristi Landaverde M.D. 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
--- OUTSIDE RECORDS SUMMARY | 2021-11-07 19:46 | XMS_ITS | Encounter Summary ---
:1980 Author Organization [facility] Address [address] [place] [address] Care Team Providers Name Role Phone Unavailable Primary Care Provider Unavailable Encounter Details Date Type Department Care Team Description 07/30/2013 Hospital Encounter HX NO MAPPING Nickolas Salas M.D. [address], [place] [phone] (Wo rk) Social History Tobacco Use Types Packs/Day Years Used Date Smoking Tobacco: Never Assessed Sex Assigned at Date Recorded Not on file documented as of this encounter Plan of Treatment Upcoming Encounters Date Type Specialty Care Team Description 11/09/2021 Office Visit Family Medicine Fadia Merchant M.D. [address] [place] [phone] (Wo rk) 11/10/2021 Office Visit Family Medicine Zacarias Sarabia M.B.B.S., M.D. [address] [place] [address] (Wo rk) 11/11/2021 Comprehensive Visit Orthopedic Surgery Ivan Deng M.D. 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
--- OUTSIDE RECORDS SUMMARY | 2021-11-07 19:46 | XMS_ITS | Encounter Summary ---
:1980 Author Organization [facility] Address [address] [place] [address] Care Team Providers Name Role Phone Unavailable Primary Care Provider Unavailable Encounter Details Date Type Department Care Team Description 01/24/2007 [facility] [place] Gerry Hernandez M.D. [address] [place] [phone] (Wo james) Social History Tobacco Use Types Packs/Day Years Used Date Smoking Tobacco: Never Assessed Sex Assigned at Date Recorded Not on file documented as of this encounter Plan of Treatment Upcoming Encounters Date Type Specialty Care Team Description 11/09/2021 Office Visit Family Medicine Fadia Merchant M.D. [address] [place] [phone] (Wo rk) 11/10/2021 Office Visit Family Medicine Zacarias Sarabia M.B.B.S., M.D. [address] [place] [phone] (Wo rk) 11/11/2021 Comprehensive Visit Orthopedic Surgery Ivan Deng M.D. [address], [place] [phone] (Wo rk) documented as of this encounter Visit Diagnoses Not on filedocumented in this encounter
--- OUTSIDE RECORDS SUMMARY | 2021-11-07 19:46 | XMS_ITS | Encounter Summary ---
:[address] [facility] Address [address] [place] [address] Care Team Providers Name Role Phone Unavailable Primary Care Provider Unavailable Encounter Details Date Type Department Care Team Description 04/12/2013 Hospital Encounter HX [facility] Tony Landaverde M.D. [address], [place] [phone] (Wo rk) Social History Tobacco Use Types Packs/Day Years Used Date Smoking Tobacco: Never Assessed Sex Assigned at Date Recorded Not on file documented as of this encounter Last Filed Vital Signs Vital Sign Reading Time Taken Comments Blood Pressure 104/72 04/12/2013 4:29 PM HAMMER SETTER Pulse 60 04/12/2013 4:29 PM HAMMER SETTER Temperature - - Respiratory Rate - - Oxygen Saturation - - Inhaled Oxygen Concentration - - Weight 115 kg (253 lb 1.4 oz) 04/12/2013 4:29 PM HAMMER SETTER Height 172.5 cm (5' 7.91) 04/12/2013 4:29 PM HAMMER SETTER Body Mass Index 38.58 04/12/2013 4:29 PM HAMMER SETTER documented in this encounter H&P Notes Katy Landaverde M.D. - 04/12/2013 4:09 PM CST [id number] CHIEF COMPLAINT/REASON FOR VISIT Transfer of care for OB care. HISTORY OF PRESENT ILLNESS Narinder is a 32-year-old gravida1, para 0 female at 26+2 weeks by her stated LIDIA of 07/17/2013, who presents today in transfer of care for OB care. The most acute issue she complains of today is pain in her upper back right teeth. This pain started a couple of hours ago. She has a history of fillings inthese teeth. She called to schedule a dentist appointment but was told that she needs to see an resident care spec first and have permission to be treated. She also states that she was seen in the ED at [facility] 2 days ago for abdominal pain and diarrhea. She states that she was given Maalox. She is afraid that she was having contractions but was found to have no contractions. She has a history of depression and has not been on medication for this since she had unwanted side effects with medications. Finally, she complains of leakage of urine, particularly at night. She states that she often wakesup completely wet from urine. She is wondering what can be done about this. She is wondering what can be done about this. She is wondering if there is a medication to take that is safe in . She has not yet felt the baby move. She denies contractions, vaginal bleeding, or leakage of fluid. Shestates that she was seen in [place] until now because she was told by friends that we perform toomany C-sections in [place] and if she delivered here she would end up with a . However, [place] was far for her to travel. She states that she does not have family in the area for supportand she is unsure who she is going to have for support people when she delivers the baby. The f[place] the baby [place] in another country. MEDICATIONS vitamin, 1 tablet by mouth daily. ALLERGIES No known drug allergies. SYSTEMS REVIEW GENERAL: No fevers, chills, fatigue, unintentional weight loss or weight gain. HEENT: Positive for tooth pain, see HPI. No changes in vision or hearing, no sore throat or nasal congestion. CARDIOVASCULAR: No chest pain, irregular heartbeat or racing heart. RESPIRATORY: No shortness of breath, cough orwheeze. GASTROINTESTINAL: No nausea, vomiting, constipation or abdominal pain. Positive for diarrheaand acid reflux. GENITOURINARY: Positive for leaking urine, see HPI. No irregular vaginal bleeding, heavy periods, painful periods, abnormal vaginal discharge, leaking urine, leaking stool or gas. SKIN: No rashes or skin lesions. BREASTS: No masses or lumps, no discharge from the nipples. NEURO: No difficulty with memory, numbness, tingling, falls. PSYCHE: Positive for depression and difficulty sleeping. See HPI. ENDOCRINE: Positive for heat intolerance and hair loss, likely related to . PAST MEDICAL/SURGICAL HISTORY 1. Vitamin D deficiency. 2. Dysthymic disorder. 3. Incontinence. 4. Obesity. 5. Gastroesophageal reflux disease (GERD). VITAL SIGNS: Height 172.5 cm. Weight 114.8 kg. BMI 38.58 kg/m2. Temp 36.7 Celsius. Pulse 60. Blood pressure 104/72. GENERAL: Well-nourished female in no acute distress. HEAD: Normocephalic, atraumatic. EENT: Vision and hearing grossly intact. No swelling or increased trauma noted at the right upper jaw. RESPIRATORY: Breathing nonlabored. ABDOMEN: Gravid, fundal height 20 cm, heart tones 160s. LOWER EXTREMITIES: Nontender, no edema. SKIN: No rashes or lesions. NEURO: Alert and oriented x3. PSYCH: Mood happy, affect pleasant. IMPRESSION/REPORT/PLAN 32-year-old 1, para 0 female at 26+2 weeks by the patient's stated LIDIA of 07/17/2013, who presents for transfer of care for OB care. 1. Care: I do not have any of the patient's outside records. She has signed a Release of Information for me to obtain these. We will review her labs and her history of prior to performing any further evaluation. 2. Tooth pain: The patient was given a note to take to the dentist that she can be treated and localanesthesia can be used. X-rays should be avoided unless this is necessary for treatment, and if so it should be performed with abdominal shielding. She is encouraged to see the dentist in the near future. 3. Leaking urine: The patient states that this is particularly bad at night when she leaks without even knowing it. Urinalysis and urine culture will be sent today to rule out infection as the cause ofthis. Also we will obtain a fingerstick glucose to rule out diabetes. We will discuss this further once we have the results of this testing. 4. Gastroesophageal reflux disease: I will assess at the next visit what the patient is using for this and whether we need to improve her regimen. 5. History of depression: The patient is not currently on medications. I will have her fill out a PHQ-9 questionnaire at the time of the next visit and will need to monitor her symptoms closely. 6. Followup: The patient will return in 2 weeks for OB followup CBC and GCT. If she has any questions or concerns prior to this time she should call the clinic. Katy Landaverde M.D./janie Electronically Signed By: KATY LANDAVERDE MD On: 04/28/2013 04:45 PM Source: [facility] MHSDOLBEYNONRADSYS Document Id: [id number] documented in this encounter Procedure Notes Traci Higgins L.PEliseoNEliseo - 04/12/2013 5:00 PM CST Urine Test Urine Test Entered On: 04/12/2013 17:00 HAMMER SETTER Performed On: 04/12/2013 17:00 HAMMER SETTER by TRACI HIGGISN Urine HCG U beta hCG Ql POC : Positive Internal Positive QC : Pass Internal Negative QC : Pass TRACI HIGGINS - 04/12/2013 17:00 HAMMER SETTER Source: [facility] POWERCHART Document Id: [id number] HAMMER SETTER!5 ER SETTER Traci Higgins L.P.NEliseo - 04/12/2013 5:00 PM CST Urine Dipstick Document Has Been Updated Urine Dipstick Entered On: 04/12/2013 17:00 HAMMER SETTER Performed On: 04/12/2013 17:00 HAMMER SETTER by TRACI HIGGINS Urine Dipstick UA Leuk POC : Negative UA Nitrite POC : Negative UA Urobilinogen POC : 0.2 mg/dl UA pH POC : 6.0 UA Blood POC : Negativ UA Spec Grav POC : 1.025 UA Ketones POC : Negative UA Bili POC : Negative TRACI HIGGINS - 04/12/2013 17:27 HAMMER SETTER UA Color POC : Yellow UA Appear POC : Clear TRACI HIGGINS - 04/12/2013 17:00 HAMMER SETTER UA Protein POC : 1+ (30 mg/dl) TRACI HIGGINS - 04/12/2013 17:27 HAMMER SETTER UA Glucose POC : Negative TRACI HIGGINS - 04/12/2013 17:00 HAMMER SETTER Source: [facility] 4vets Document Id: [id number] HAMMER SETTER!11 ER SETTER documented in this encounter Miscellaneous Notes Miscellaneous - Katy Landaverde M.D. - 04/18/2013 1:22 PM CDT Results Notification Document Contains Addenda Addendum by MACKENZIE BECKWITH on 19 April 2013 14:50:47 CDT From: MACKENZIE BECKWITH To: KATY LANDAVERDE MD; Sent: 04/19/2013 14:50:47 CDT Show up: 04/19/2013 14:49:00 CDT Subject: RE: Results Notification It just means that the culture showed alpha strep. The lab said that is what it will look like from now on when there is an abnormal result. It will say see table below and then right below that willshow what the culture grew. From: KATY LANDAVERDE MD Sent: 04/18/2013 13:22:52 CDT ! Show up: 04/18/2013 13:22:52 CDT Subject: Results Notification Actions: Note to Nurse Reminder Comments: This report states that there is a table that is supposed to go with the result. However, there is no table attached to the report. Please call [facility] lab to see if we can get the full report. Results: Date Result Type Result Name 04/18/2013 8:54 Document - mdoc Laboratory-Scanned Source[facility] Document Id: [id number] Electronically signed by [facility]io [facility] Chief Hydroelectric Station Operator [id number] at 07/06/2016 4:48 AM CDT Katy Blackwood M.D. - 04/14/2013 2:20 PM CST Ambulatory Discharge Medication List [address] [id number] Visit Information Name: NARINDER LUCAS [facility] Number: [id number] Visit Date: 04/14/2013 14:20:11 Attending Provider: KATY LANDAVERDE MD Primary Care [...] Changes/Routing multivitamin (multivitamin) Oral, once a day Stop Taking the Following Medications: Medication list as of 04-14-13 14:20 Attention: If you have any medications at home that are not on this list, DO NOT take them until youcontact your provider for clarification. Give a copy of your medication list to your primary care provider. Update your medication list any time medications or doses are changed and carry your medication list at all times in case of emergency. Additional Information: Source: [facility] POWERCHART Document Id: [id number] ER SETTER Katy Blackwood M.D. - 04/14/2013 2:20 PM CST Ambulatory Patient Summary [address] [id number] Visit Information Name: NARINDER LUCAS [facility] Number: [id number] Visit Date: 04/14/2013 14:20:11 Attending Provider: KATY LANDAVERDE MD Primary Care Provider: PCP, NARINDER OTT has been given the following list of medications: Your Medications It is important to take your medications as directed. Use a pill box or chart to help remind you to take your medications. Please let your doctor or nurse know if you have problems taking your medications. Medication/Strength How to Take Indications/Special Instructions/Comments/Notes for Patient Medication Changes/Routing multivitamin (multivitamin) Oral, once a day Stop Taking the Following Medications: Medication list as of 04-14-13 14:20 Attention: If you have any medications at home that are not on this list, DO NOT take them until youcontact your provider for clarification. Give a copy of your medication list to your primary care provider. Update your medication list any time medications or doses are changed and carry your medication list at all times in case of emergency. Additional Information: Source: [facility] 4vets Document Id: [id number] ER SETTER Miscellmerissa - Traci Higgins, LEliseoPEliseoNEliseo - 04/12/2013 5:31 PM CST PHQ-9 PHQ-9 Entered On: 04/12/2013 17:31 HAMMER SETTER Performed On: 04/12/2013 17:31 HAMMER SETTER by TRACI HIGGINS PHQ-9 Little interest or pleasure in doing things : Not at all Feeling down, depressed, or hopeless : Not at all Trouble falling or staying asleep, or sleeping too much : Nearly every day Feeling tired or having little energy : More than half the days Poor appetite or overeating : More than half the days Feeling bad about yourself or that you are a failure : Not at all Trouble concentrating on things : Not at all Moving or speaking slowly; restless or fidgety : Not at all Thoughts that you would be better off /hurting self : Not at all PHQ-9 Calculated Score : 7 TRACI HIGGINS - 04/12/2013 17:31 HAMMER SETTER Source: [facility] 4vets Document Id: [id number] HAMMER SETTER!12 ER SETTER Cierra - Katy Landaverde M.D. - 04/12/2013 5:01 PM CST Work Excuse 12 April 2013 NARINDER LUCAS [address] [place] [id number] Dear NARINDER LUCAS, You were examined in my office on: 04/12/13 You are 26 weeks 2 days and having dental issues. It is fine to use local anesthesia for treatment of these issues. I recommend avoiding x-rays unless needed to treat the condition. If x-ray is needed to treat this condition, it should be performed, but shielding the abdomen. Sincerely, KATY LANDAVERDE [address] [place] [address] Electronic Signature Electronically Signed By: KATY LANDAVERDE MD On: 12 April 2013 This document has images extracted. Source: [facility] POWERCHART Document Id: [id number] Electronically signed by Obdulio, [facility] Chief Hydroelectric Station Operator [id number] at 07/06/2016 4:48 AM CDT Cierra - Traci Higgins L.P.N. - 04/12/2013 4:29 PM CST Adult Water Treatment Plant Operator Intake/History Adult Water Treatment Plant Operator Intake/History Entered On: 04/12/2013 16:33 HAMMER SETTER Performed On: 04/12/2013 16:29 HAMMER SETTER by TRACI HIGGINS Intake Chief Complaint : pregnacy confrimation LMP Date : 09/23/12 Temperature Core : 36.7 DegC(Converted to: 98.1 DegF) Peripheral Pulse Rate : 60 /min Systolic Blood Pressure : 104 mmHg Diastolic Blood Pressure : 72 mmHg NIBP Mean : 83 mmHg Height : 172.5 cm(Converted to: 5 ft 8 inch(es), 68 inch(es)) Actual Weight : 114.8 kg(Converted to: 253 lb 1 oz) Dosing Weight Clinic : 114.8 kg Clinic BSA : 2.35 Body Mass Index : 38.58 kg/m2 TRACI HIGGINS - 04/12/2013 16:29 HAMMER SETTER General Info Information Given By : Patient Preferred Communication Mode : Verbal Languages : Bur[place]ian TRACI HIGGINS - 04/12/2013 16:29 HAMMER SETTER Subjective Pain Symptoms : Yes TRACI HIGGINS - 04/12/2013 16:29 HAMMER SETTER Pain Pain Assessment Grid Pain 1 Location : Tooth TRACI HIGGINS - 04/12/2013 16:29 HAMMER SETTER Dependent Habits Tobacco Use/Currently Using : No Exposure to Tobacco Smoke : Other: never Smoking Status : Never smoker TRACI HIGGINS - 04/12/2013 16:29 HAMMER SETTER Caffeine Use Grid Caffeine Use : Current Type : Chocolate, Coffee, Soft drinks, Tea Frequency : Daily TRACI HIGGINS - 04/12/2013 16:29 HAMMER SETTER [facility] Document Id: [id number] HAMMER SETTER!33 ER SETTER documented in this encounter Plan of Treatment Upcoming Encounters Date Type Specialty Care Team Description 11/09/2021 Office Visit Family Medicine Fadia Merchant M.D. [address] [place] [phone] (Wo rk) 11/10/2021 Office Visit Family Medicine Zacarias Sarabia M.B.B.S., M.D. [address] [place] [address] (Wo rk) 11/11/2021 Comprehensive Visit Orthopedic Surgery Ivan Deng M.D. [address] [phone] (Wo rk) documented as of this encounter Procedures Procedure Name Priority Date/Time Associated Diagnosis Comme nts POCT KETONE, URINE Routine 04/12/2013 5:27 PM Res ults for this HAMMER SETTER procedure are i n the results section. TEST, Routine 04/12/2013 5:00 PM Result s for this POCT, U (MANUAL) HAMMER SETTER procedure a re in the results section. BACTERIAL CULTURE, Routine 04/12/2013 5:00 PM Res ults for this AEROBIC, URINE HAMMER SETTER procedure are in the results section. documented in this encounter Results Ketone, Urine, POCT (04/12/2013 5:27 PM HAMMER SETTER) [facility] Method Time Signature Color Yellow POWERCHART Appearance Clear POWERCHART Protein, POCT, 1+ (30 POWERCHART U mg/dl) Glucose, POCT, Negative POWERCHART U Leukocytes, Negative POWERCHART POCT, U Nitrites, Negative POWERCHART POCT, U Urobilinogen, 0.2 mg/dl POWERCHART POCT, Urine pH, POCT, 6.0 5.0 - 9.0 POWERCHART Urine Blood, POCT, U Negativ POWERCHART Specific 1.025 1.000 - POWERCHART [place], POCT, 1.030 U Ketone, POCT, Negative POWERCHART U Bilirubin, Negative POWERCHART POCT, U Specimen (Source) Anatomical Collection Method Collection Time Re ceived Time Location / / Volume Laterality 04/12/2013 5:27 PM HAMMER SETTER Katy Landaverde M.D. LAB POCT ORDERABLES-MANUAL Performing Organization Address [place] [facility] [place] POWERCHART Test, POCT, Urine (nursing) (04/12/2013 5:00 PM HAMMER SETTER) P athologist Signature HX Beta hCG Positive POWERCHART Qual Urine-Lab Only Specimen (Source) Anatomical Collection Method Collection Time Re ceived Time Location / / Volume Laterality 04/12/2013 5:00 PM HAMMER SETTER Katy Landaverde M.D. LAB POCT ORDERABLES-MANUAL Performing Organization Address City/State/ZIP Code Phon e Number POWERCHART Bacterial Culture, Aerobic, Urine (04/12/2013 5:00 PM HAMMER SETTER) [facility] Method Time Signature Bacterial POWERCHART Culture, Aerobic, Urine HXFinal See POWERCHART scanned/paper report. Test performed at [facility]. Specimen (Source) Anatomical Collection Method Collection Time Re ceived Time Location / / Volume Laterality Urine, Clean 04/12/2013 5:00 PM Catch HAMMER SETTER Authorizing Provider Result Kristan Landaverde M.D. LAB MICROBIOLOGY - GENERAL O RDERABLES Performing Organization Address City/State/ZIP Code Phon e Number POWERCHART documented in this encounter Visit Diagnoses Not on filedocumented in this encounter Additional Health Concerns Assessment Noted Time PHQ-9 Depression Total Score: 7 04/12/2013 5:31 PM HAMMER SETTER documented as of this encounter
--- OUTSIDE RECORDS SUMMARY | 2021-11-07 19:46 | XMS_ITS | Encounter Summary ---
:1980 Author Organization [facility] Address [address] [place] [address] Care Team Providers Name Role Phone Unavailable Primary Care Provider Unavailable Encounter Details Date Type Department Care Team Description 12/13/2011 Hospital Encounter HX [facility] Catarina Bishop M.D. Social History Tobacco Use Types Packs/Day Years Used Date Smoking Tobacco: Never Assessed Sex Assigned at Date Recorded Not on file documented as of this encounter Last Filed Vital Signs Vital Sign Reading Time Taken Comments Blood Pressure 94/64 12/13/2011 10:25 AM [employer] Pulse 68 12/13/2011 10:25 AM [employer] Temperature - - Respiratory Rate 16 12/13/2011 10:25 AM [employer] Oxygen Saturation - - Inhaled Oxygen Concentration - - Weight 110 kg (242 lb 8.1 oz) 12/13/2011 10:25 AM [employer] Height 170 cm (5' 6.93) 12/13/2011 10:25 AM [employer] Body Mass Index 38.06 12/13/2011 10:25 AM [employer] documented in this encounter Progress Notes Oniel Bishop M.D. - 12/13/2011 10:19 AM CST [id number] CHIEF COMPLAINT/REASON FOR VISIT Recheck vitamin D deficiency. HISTORY OF PRESENT ILLNESS This 31-year-old female patient who is a poor eater went to [place] and was found have vitaminD deficiency. She was told take 50,000 units of vitamin D weekly for 8 weeks and then come back for recheck. She took three of pills and lost them and would like to finish them. She has been off them for a few weeks. Gave her 5 pills and she will return the week of the last pill for another vitamin D level which she did not wish to do at this time but she was told it was very low. She also was placedon citalopram 10 mg daily for 4 days and then 1 whole tablet daily. The pills made her nauseated anddid not feel like eating so she stopped them. At this point will see how she does after she has adequate vitamin D levels could be related to her back pain or leg discomfort. Her leg swelling may be related to the fact that she is heavy and she does not exercise or walk she just works night and day and sleeps and eats poorly except when she eats at [employer]. EMR record reviewed and updated. SYSTEMS REVIEW RESPIRATORY: No cough or shortness of breath. CARDIOVASCULAR: No palpitation of the heart, no chest pain. GI: No nausea, vomiting, diarrhea, constipation or recent change in weight. : No dysuria, no hematuria. All other systems reviewed and negative, except as mentioned above. PHYSICAL EXAMINATION SKIN: Clear. EYES: Pupils equal, round, react to light and accommodation; EOMs full; fundi no papilledema, hemorrhage or exudate; lids normal. ENT: Ears: TMs clear; external auditory canals clear. Throat clear. Tongue normal. Teeth normal. LYMPH NODES: Neck: no lymphadenopathy. THYROID: Normal size, symmetric. HEART: No murmur, gallop or rub; normal size; PMI arteries normal. LUNGS: Clear to percussion and auscultation, normal to inspection, no retractions, no dyspnea. ABDOMEN: No masses, no organomegaly, nontender; normal to inspection, percussion and palpation; no distention. EXTREMITIES: Minimal edema of the lower legs. IMPRESSION/REPORT/PLAN Vitamin D deficiency. Recommend vitamin D 5000 units weekly. Recheck in 6 weeks for follow up with vitamin D level also take a woman's health vitamin with her evening meal and stop the citalopram no further antidepressants at this time. Oniel Bishop M.D./adrian Electronically Signed By: ONIEL BISHOP MD On: 12/14/2011 08:45 AM Source: [facility] MHSDOLBEYNONRADSYS Document Id: [id number] [employer] documented in this encounter Miscellaneous Notes Miscellaneous - Luciano Ayala L.P.N. - 12/14/2011 9:30 AM CST PHQ-9 From: LUCIANO AYALA LPN To: ODALIS BORRERO; Sent: 12/14/2011 09:30:05 [employer] Show up: 04/13/2012 09:30:00 [employer] Subject: PHQ-9 Due Date/Time: 05/12/2012 09:29:00 CDT Please Remember to: PHQ-9 due within 30 days of 05/12/12. Can be done by phone (If patient scores 9 orgreater advise a follow up with provider.) or office visit. Please call and advise. 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 - 12/13/2011 11:05 AM CST Ambulatory Patient Summary [address] [address] Visit Information Name: [place] Current Date: 12/13/2011 11:05:33 Physicians Attending Provider: ONIEL BISHOP MD Primary Care Provider: PCP, UNASSIGNED Your [...] No Appointments found Your Goals/Additional instructions: Source: [facility] POWERCHART Document Id: [id number] [employer] Miscellaneous - Oniel Bishop M.D. - 12/13/2011 11:05 AM CST Ambulatory Depart Summary [address] [address] Visit Information Name: [place] Visit Date: 12/13/2011 11:05:32 Attending Provider: ONIEL BISHOP MD Primary Care Provider: PCP, UNASSIGNED [facility] [...] your provider for clarification. Additional Information: Source: [facility] POWERCHART Document Id: [id number] [employer] Miscellaneous - Conversion, Historical Provider Ser - 12/13/2011 10:31 AM [employer] PHQ-9 PHQ-9 Entered On: 12/13/2011 10:34 [employer] Performed On: 12/13/2011 10:31 [employer] by DALE VILLALOBOS PHQ-9 Little interest or pleasure in doing things : Not at all Feeling down, depressed, or hopeless : More than half the days Trouble falling or staying asleep, or sleeping too much : Nearly every day Feeling tired or having little energy : Nearly every day Poor appetite or overeating : Nearly every day Feeling bad about yourself or that you are a failure : Not at all Trouble concentrating on things : Not at all Moving or speaking slowly; restless or fidgety : Several days Thoughts that you would be better off /hurting self : Not at all PHQ-9 Calculated Score : 12 Problems make work, home, or dealing with others : Not difficult at all DALE VILLALOBOS - 12/13/2011 10:31 [employer] Source: [facility] [employer] Document Id: [id number] Miscellaneous - Conversion, Historical Provider Ser - 12/13/2011 10:30 AM [employer] Health Assessment Health Assessment Entered On: 12/13/2011 10:31 [employer] Performed On: 12/13/2011 10:30 [employer] by DALE VILLALOBOS Health Assessment Complete Health Assessment Complete or Modified : Annual Health Assessment Annual Health Assessment Completed : Yes DALE VILLALOBOS - 12/13/2011 10:30 [employer] Nutrition Nutrition Risk Factors by History Adult : None Feeding Ability : Complete independence DALE VILLALOBOS - 12/13/2011 10:30 [employer] Functional Current Daily Living Assistance : None Mobility Assistance Prior to Admission : Independent DALE VILLALOBOS - 12/13/2011 10:30 [employer] Dependent Habits Tobacco Use/Currently Using : No Exposure to Tobacco Smoke : Other: never Smoking Status : Never smoker Alcohol Use : No DALE VILLALOBOS - 12/13/2011 10:30 [employer] Caffeine Use Grid Caffeine Use : Current Type : Chocolate, Coffee, Soft drinks, Tea Frequency : Daily DALE VILLALOBOS - 12/13/2011 10:30 [employer] Psychosocial Domestic Abuse Concerns : None Marital Status : Single DALE VILLALOBOS - 12/13/2011 10:30 [employer] Advance Directive Advanced Directives : No DALE VILLALOBOS - 12/13/2011 10:30 [employer] Educ Needs Learning Style Preference Adult Grid Patient : Printed materials, Verbal explanation Family : None DALE VILLALOBOS - 12/13/2011 10:30 [employer] Source: [facility] POWERCHART Document Id: [id number] Miscellaneous - Conversion, Historical Provider Ser - 12/13/2011 10:25 AM [employer] 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 Entered On: 12/13/2011 10:29 [employer] Performed On: 12/13/2011 10:25 [employer] by DALE VILLALOBOS Intake Chief Complaint : 1) check legs 2) low back pain 3) depression Temperature Core : 37C(Converted to: 98.6DegF) Peripheral Pulse Rate : 68/min Respiratory Rate : 16/min Systolic Blood Pressure : 94mmHg Diastolic Blood Pressure : 64mmHg NIBP Mean : 74mmHg BP Location : Right upper extremity Blood Pressure Cuff Size : Regular Height : 170cm(Converted to: 5ft 7inch(es), 66.93inch(es)) Actual Weight : 110kg(Converted to: 242lb 8oz) Dosing Weight Clinic : 110.00kg Clinic BSA : 2.28 Body Mass Index : 38.06kg/m2 DALE VILLALOBOS - 12/13/2011 10:25 [employer] Subjective Pain Symptoms : Yes DALE VILLALOBOS 12/13/2011 10:25 [employer] Pain Pain Assessment Grid Pain 1 Location : Lower leg Laterality : Bilateral DALE VILLALOBOS 12/13/2011 10:25 [employer] Dependent Habits Tobacco Use/Currently Using : No Exposure to Tobacco Smoke : Other: never Smoking Status : Never smoker DALE VILLALOBOS 12/13/2011 10:25 [employer] Caffeine Use Grid Caffeine Use : Current Type : Chocolate, Coffee, Soft drinks, Tea Frequency : Daily DALE VILLALOBOS 12/13/2011 10:25 [employer] Allergy Allergies (Active) NKA Estimated Onset Date: Unspecified ; Created By: ODALIS BORRERO Reaction Status: Active ; Category: Drug ; Substance: NKA ; Type: Allergy ; Updated By: ODALIS BORRERO; Reviewed Date: 12/13/2011 10:24 [employer] Source: [facility] POWERCHART Document Id: [id number] documented in this encounter Plan of Treatment Upcoming Encounters Date Type Specialty Care Team Description 11/09/2021 Office Visit Family Medicine Fadia Merchant M.D. [address] [place] [phone] (Wo rk) 11/10/2021 Office Visit Family Medicine Zacarias Sarabia M.B.B.S., M.D. [address] [place] [address] (Wo rk) 11/11/2021 Comprehensive Visit Orthopedic Surgery Ivan Deng M.D. [address] [place], [place] [phone] (Wo rk) documented as of this encounter Visit Diagnoses Not on filedocumented in this encounter Additional Health Concerns Assessment Noted Time PHQ-9 Depression Total Score: 12 12/13/2011 10:[address] documented as of this encounter
--- OUTSIDE RECORDS SUMMARY | 2021-11-07 19:46 | XMS_ITS | Encounter Summary ---
:1980 Author Organization [facility] Address [address] [place] [address] Care Team Providers Name Role Phone Unavailable Primary Care Provider Unavailable Encounter Details Date Type Department Care Team Description 05/11/2013 Hospital Encounter HX [facility] Kristi Landaverde M.D. [address] [place], [place] [phone] (Wo rk) Social History Tobacco Use Types Packs/Day Years Used Date Smoking Tobacco: Never Assessed Sex Assigned at Date Recorded Not on file documented as of this encounter Miscellaneous Notes Miscellaneous - Kristi Landaverde M.D. - 05/11/2013 9:40 AM CDT Results Notification Document Contains Addenda Addendum by MACKENZIE BECKWITH on 11 May 2013 09:59:47 CDT Results added to chart. From: KRISTI LANDAVERDE MD Sent: 05/11/2013 09:40:57 CDT ! Show up: 05/11/2013 09:40:57 CDT Subject: Results Notification Actions: Note to Nurse Reminder Comments: Please add results to chart. Results: Date Result Name Value Ref Range 05/11/2013 08:59 Glucose 1 Hr OB 114 mg/dL (70 - 139) Source: [facility] POWERCHART Document Id: [id number] documented in this encounter Plan of Treatment Upcoming Encounters Date Type Specialty Care Team Description 11/09/2021 Office Visit Family Medicine Ayuob, Mysoon M, M.D. [address] [place] [address] (Wo rk) 11/10/2021 Office Visit Family Medicine Zacarias Sarabia M.B.B.S., M.D. [address] [place] [address] (Wo rk) 11/11/2021 Comprehensive Visit Orthopedic Surgery Ivan Deng M.D. [address] [place], [place] [phone] (Wo rk) documented as of this encounter Procedures Procedure Name Priority Date/Time Associated Comments Diagnosis GLUCOSE, GESTATIONAL Routine 05/11/2013 8:59 AM R esults for this 1HR, S CDT procedure are i n the results section. documented in this encounter Results Glucose, Gestational 1HR (05/11/2013 8:59 AM CDT) P athologist Signature HXGlucose 1 Hr 114 70 - 139 POWERCHART OB MGDL Comment: A glucose threshold value >= 14 0mg/dL identifies approximately 80% of women with GDM, and the yield is further incre ased to 90% by using a cutoff of >=130mg/dL. Specimen (Source) Anatomical Collection Method Collection Time Re ceived Time Location / / Volume Laterality Blood 05/11/2013 8:59 AM CDT Kristi Landaverde M.D. 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
--- OUTSIDE RECORDS SUMMARY | 2021-11-07 19:46 | XMS_ITS | Encounter Summary ---
:1980 Author Organization [facility] Address [address] [place] [address] Care Team Providers Name Role Phone Unavailable Primary Care Provider Unavailable Encounter Details Date Type Department Care Team Description 05/24/2013 Hospital Encounter HX [facility] Suraj Uriostegui M.D. [address] [address] (Wo rk) Social History Tobacco Use Types Packs/Day Years Used Date Smoking Tobacco: Never Assessed Sex Assigned at Date Recorded Not on file documented as of this encounter Plan of Treatment Upcoming Encounters Date Type Specialty Care Team Description 11/09/2021 Office Visit Family Medicine Fadia Merchant M.D. [address] [place] [address] (Wo rk) 11/10/2021 Office Visit Family Medicine Zacarias Sarabia M.B.B.S., M.D. [address] [place] [address] (Wo rk) 11/11/2021 Comprehensive Visit Orthopedic Surgery Ivan Deng M.D. 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
--- OUTSIDE RECORDS SUMMARY | 2021-11-07 19:46 | XMS_ITS | Encounter Summary ---
:1980 Author Organization [facility] Address [address] [place] [address] Care Team Providers Name Role Phone Unavailable Primary Care Provider Unavailable Encounter Details Date Type Department Care Team Description 05/13/2011 Hospital Encounter HX [facility] FAMILYPRA Catarina Bishop M.D. Social History Tobacco Use Types Packs/Day Years Used Date Smoking Tobacco: Never Assessed Sex Assigned at Date Recorded Not on file documented as of this encounter Last Filed Vital Signs Vital Sign Reading Time Taken Comments Blood Pressure 110/70 05/13/2011 2:24 PM CDT Pulse 60 05/13/2011 2:24 PM CDT Temperature - - Respiratory Rate 16 05/13/2011 2:24 PM CDT Oxygen Saturation - - Inhaled Oxygen Concentration - - Weight 101 kg (223 lb 12.3 oz) 05/13/2011 2:24 PM CDT Height 169 cm (5' 6.54) 05/13/2011 2:24 PM CDT Body Mass Index 35.54 05/13/2011 2:24 PM CDT documented in this encounter Progress Notes Oniel Bishop M.D. - 05/13/2011 12:00 AM CDT [id number] CHIEF COMPLAINT/ REASON FOR VISIT Low back pain, leg swelling hurt to touch. HISTORY OF PRESENT ILLNESS This 30-year-old female patient is in for few problems. One is that she is having low back pain has had it for years. She was in an accident in the past but did have problems before that but somewhat worse afterwards. She also has swelling in both legs and they are tender to touch. She is incontinent of urine had it since childhood cannot stay over at friends because she is afraid she might wet her self. She does it sometime during the night. She also feels depressed does not want to eat cannot sleep. 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 Mother was Shayna Zelaya. Seen here for the first time. EMR record reviewed and updated. PAST MEDICAL/SURGICAL HISTORY Patient has had previous problems with acne, constipation, enuresis, urinary frequency and urinary urgency and xerosis. She has had no surgery. FAMILY HISTORY Father hypertension. SOCIAL HISTORY Does not smoke does not drink alcohol home. Has been putting on weight. For depression will fill out the PHQ-9 MIKEY-7 and mood testing form. CURRENT MEDICATIONS None. ALLERGIES None. SYSTEMS REVIEW ALLERGIC/IMMUNOLOGIC: The patient is having no itching, no signs of allergies. No signs of immune deficiency. CONSTITUTIONAL SYMPTOMS: The patient has had no fevers, no weight loss or gain, no night sweats, no tiredness. PSYCHIATRIC: No emotional problems, no loss of feeling, no problem thinking. EYES: No redness, no mattering, no change in vision. ENT: No hearing loss, no cold, no runny nose, no sores in the mouth, no sore throat. CARDIOVASCULAR: No palpitation of the heart, no chest pain, no orthopnea, no PND. RESPIRATORY: No cough, no shortness of breath, no difficulty breathing, no pain with inspiration. HEMATOLOGICAL/LYMPHATIC: No swollen glands, no paleness, no easy bruising, no petechiae. GI: No nausea, vomiting, diarrhea or constipation. : No dysuria, no hematuria, no change in frequency of urination, no nocturia. MUSCULOSKELETAL: Low back pain diffusely tender to palpation. Leg edema with swollen lower legs tender to palpation. INTEGUMENTARY: Skin: No change in color, no lesions. Breasts: No masses noted, no change in nipples. NEUROLOGICAL: No loss of feeling, no loss of function. ENDOCRINE: No weakness, no tiredness, no symptoms of thyroid disease or diabetes; no thirst, weight loss or polyuria. All other systems reviewed and negative, except as mentioned above. VITAL SIGNS HEIGHT 169 WEIGHT 101.5 BODY MASS INDEX 35.5 TEMPERATURE 36.4 RESPIRATIONS 16 PULSE 60 BLOOD PRESSURE 110/70 PHYSICAL EXAM AREA EXAM TEXT GENERAL Appearance, development, nutrition, and body habitus appear normal; no deformities. Normal grooming. SKIN Inspection of the skin and subcutaneous tissue clear, no rashes, lesions or ulcers. Palpation of the skin and subcutaneous tissue revealed no induration, subcutaneous nodules or tightening of the skin. EYES Pupils equal, round, react to light and accommodation; EOMs full; fundi no papilledema, hemorrhage or exudate; optic discs normal; lids and conjunctiva normal, no redness, no papules. ENT Tympanic membranes clear; external auditory canals and ears normal; hearing grossly normal; nasal mucosa, septum and turbinates appear normal; lips, teeth and gums normal; oropharynx, oral mucosa, salivary glands, hard and soft palate, tongue, and posterior pharynx appear normal. LYMPH NODES No lymphadenopathy, thyroid normal size without masses or tenderness; no masses, symmetrical. Lymphatic: No nodules palpated in the neck, axilla, groin or any other area. HEART Palpation of the heart normal location and size, no thrills. Auscultation reveals no murmur, gallop or rub. Carotid arteries: Normal pulse amplitude, no bruits. Abdominal aorta normal size, no bruits. Femoral arteries pulse normal, no bruits. Pedal pulses normal amplitude. LUNGS Respiratory effort normal, no difficulty breathing, retractions or abnormal movements. Percussion: No dullness, flatness or hyperresonance. Palpation of the chest negative, auscultation of the lungs reveals normal breath sounds, no rales, rhonchi or wheezing. ABDOMEN Abdomen has no masses, no tenderness; liver and spleen are not palpable; no evidence for hernia. EXTREMITIES Swelling in the lower legs. Tender to palpation. No pitting edema. MENTAL Psychiatric: Patient appears oriented to time, place and person with good recent and remote memory. Mood and affect appear normal without evidence for depression, anxiety or agitation. NEURO Cranial nerves grossly intact. Deep tendon reflexes symmetrical +2. Normal sensation. IMPRESSION/REPORT/PLAN 1. Enuresis urinary frequency. Get CMP, CBC urinalysis urine culture urology consultation 2. For her low back pain she also has some pain in the left anterior upper pelvis. Will get low back x-rays and pelvic x-rays of left hip. She denies any shortness of breath or chest pain do not feel we need EKG or chest x-ray at this time 3. For her edema and leg pain do same test as mentioned for urinary problems plus adding a sed rate and CK 4. Tiredness other problems listed add TSH. Patient will be rechecked after initial studies and will interview her more regarding diet which she states she eats poorly hardly cooks for her self and consider checking for vitamin deficiencies or starting multivitamin. Patient will wear seat belt when riding or driving a car, eat low sodium high calcium high potassium less than 20 gram saturated fat diet with calories to maintain ideal body weight, walk equivalent to half hour a day for exercise, see dentist once or twice a year, use ear protection for loud noises, eye examination as needed, continue to have annual medical examinations. Recheck in 1 week return sooner p.r.n. SFO/clf Signed Oniel Bishop M.D. Family Medicine Electronically Signed By: ONIEL BISHOP MD On: 05/14/2011 08:14 AM Source: [facility] [email or web address] Document Id: [id number] documented in this encounter Miscellaneous Notes Miscellaneous - Oniel Bishop M.D. - 05/16/2011 12:12 PM CDT Results Notification Document Contains Addenda Addendum by ONIEL BISHOP MD on 16 May 2011 12:19:05 CDT ok From: ONIEL BISHOP MD To: ONIEL BISHOP MD Sent: 05/16/2011 12:12:49 CDT ! Show up: 05/16/2011 17:12:49 [facility] Subject: Results Notification Actions: Notify patient of results Source: [facility] POWERCHART Document Id: [id number] Miscellaneous - Maddy Lainez L.PEliseoNEliseo - 05/14/2011 8:31 AM CDT PHQ-9 Due From: MADDY LAINEZ LPN To: ODALIS BORRERO; Sent: 05/14/2011 08:31:55 CDT Show up: 10/13/2011 08:31:00 CDT Subject: PHQ-9 Due Due Date/Time: 11/12/2011 08:31:00 CDT Please Remember to: Patient is due for a six month PHQ-9. This needs to be done within 30 days of 11/12/2011. This can be done over the phone or through an office visit. Please call and advise patient. PATIENT: ( x ) Call Patient ( ) Ask Patient to ( ) ( ) Call Relative ( ) Schedule Patient ( ) ( ) Call for Platform Inspector ( ) Follow up on Results ( ) Other: PROVIDER: ( ) Call Physician ( ) Call Pharmacist ( ) Call Lab ( ) Other: Special Instructions: Comments: Source: [facility] Document Id: [id number] Electronically signed by [facility] Ux Information Architect [id number] at 07/11/2016 6:38 AM CDT Miscellaneous - Oniel Bishop M.D. - 05/13/2011 3:48 PM CDT Results Notification From: ONIEL BISHOP MD To: ONIEL BISHOP MD Sent: 05/13/2011 15:48:48 CDT ! Show up: 05/13/2011 20:48:48 [facility] Subject: Results Notification Actions: Notify patient of results Source: [facility] [email or web address] Document Id: [id number] Electronically signed by Conversion, [facility] Ux Information Architect [id number] at 07/11/2016 6:38 AM CDT Shefalicellmerissa - Oniel Bishop M.D. - 05/13/2011 3:11 PM CDT Results Notification From: ONIEL BISHOP MD To: ONIEL BISHOP MD Sent: 05/13/2011 15:11:22 CDT ! Show up: 05/13/2011 20:11:22 [facility] Subject: Results Notification Actions: Notify patient of results Source: [facility] [email or web address] Document Id: [id number] Electronically signed by Conversion, [facility] Ux Information Architect [id number] at 07/11/2016 6:38 AM CDT Shefalicellmerissa - Oniel Bishop M.D. - 05/13/2011 2:55 PM CDT [place] [address] Visit Information Name: [place] Current Date: 05/13/2011 14:55:12 Physicians Attending Provider: ONIEL BISHOP MD Primary [...] Your Problem List Problem Status Onset Comments Urgency of Urination Active 02/28/2008 Nocturnal Enuresis Active 02/28/2008 Other Acne Active 02/28/2008 Other Specified Diseases of Sebaceous Glands Active 02/28/2008 Urinary Frequency Active 12/05/2008 Constipation, Unspecified Active 12/05/2008 Your Upcoming Appointments Date Time Location Reason Provider No Appointments found Your Goals/Additional instructions: Source: [facility] Informed TradesCHART Document Id: [id number] Miscellaneous - Oniel Bishop M.D. - 05/13/2011 2:55 PM CDT Ambulatory Depart Summary [address] [address] Visit Information Name: [place] [place] Visit Date: 05/13/2011 14:55:11 Attending Provider: ONIEL BISHOP MD Primary Care [...] your provider for clarification. 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 Intake/History Entered On: 05/13/2011 14:31 CDT Performed On: 05/13/2011 14:24 CDT by ODALIS BORRERO Intake Chief Complaint : both legs swelling, low back pain Temperature Core : 36.4C(Converted to: 97.5DegF) (LOW) Peripheral Pulse Rate : 60/min Respiratory Rate : 16/min Heart Rhythm : Regular Systolic Blood Pressure : 110mmHg Diastolic Blood Pressure : 70mmHg NIBP Mean : 83mmHg BP Location : Right upper extremity Height : 169cm(Converted to: 5ft 7inch(es), 66.54inch(es)) Actual Weight : 101.5kg(Converted to: 223lb 12oz) Dosing Weight Clinic : 101.50kg Clinic BSA : 2.18 Body Mass Index : 35.54kg/m2 ODALIS BORRERO - 05/13/2011 14:24 CDT Subjective Pain Symptoms : No ODALIS BORRERO - 05/13/2011 14:24 CDT Dependent Habits Tobacco Use/Currently Using : No Smoking Status : Never smoker ODALIS BORRERO - 05/13/2011 14:24 CDT Allergy Allergies (Active) NKA Estimated Onset Date: Unspecified ; Created By: ODALIS BORRERO; Reaction Status: Active ; Category: Drug ; Substance: NKA ; Type: Allergy ; Updated By: ODALIS BORRERO; Reviewed Date: 05/13/2011 14:24 CDT Source: [facility] Document Id: [id number] CDT!21 Miscellaneous - Conversion, Historical Provider Ser - 05/13/2011 2:15 PM CDT PHQ-9 PHQ-9 Entered On: 05/13/2011 16:36 CDT Performed On: 05/13/2011 14:15 CDT by ODALIS BORRERO PHQ-9 Little interest or pleasure in doing things : Nearly every day Feeling down, depressed, or hopeless : Not at all Trouble falling or staying asleep, or sleeping too much : Nearly every day Feeling tired or having little energy : Nearly every day Poor appetite or overeating : Nearly every day Feeling bad about yourself or that you are a failure : More than half the days Trouble concentrating on things : More than half the days Moving or speaking slowly; restless or fidgety : Not at all Thoughts that you would be better off /hurting self : Not at all PHQ-9 Calculated Score : 16 Problems make work, home, or dealing with others : Very difficult ODALIS BORRERO - 05/13/2011 16:35 CDT Source: [facility] POWERCHART Document Id: [id number] CDT!13 documented in this encounter Plan of Treatment Upcoming Encounters Date Type Specialty Care Team Description 11/09/2021 Office Visit Family Medicine Fadia Merchant M.D. [address] [place] [address] (Wo rk) 11/10/2021 Office Visit Family Medicine Zacarias Sarabia M.B.B.S., M.D. [address] [place] [address] (Wo rk) 11/11/2021 Comprehensive Visit Orthopedic Surgery Ivan Deng M.D. [address] [place], [place] [phone] (Wo rk) documented as of this encounter Procedures Procedure Name Priority Date/Time Associated Comments Diagnosis DX HIP AND PELVIS LEFT Routine 05/13/2011 3:19 PM Results for this 1 VIEW CDT procedure are i n the results section. DX LUMBAR SPINE 2-3 Routine 05/13/2011 3:19 PM Re sults for this VIEWS CDT procedure are i n the results section. DIPSTICK, U Routine 05/13/2011 3:02 PM Results f or this CDT procedure are i n the results section. BACTERIAL CULTURE, Routine 05/13/2011 3:02 PM Res ults for this AEROBIC, URINE CDT procedure are in the results section. AUTOMATED Routine 05/13/2011 3:01 PM Results f or this DIFFERENTIAL, B CDT procedure ar e in the results section. SEDIMENTATION RATE, B Routine 05/13/2011 3:01 PM Results for this CDT procedure are i n the results section. CBC WITH DIFFERENTIAL, Routine 05/13/2011 3:01 PM Results for this B CDT procedure are i n the results section. THYROID-STIMULATING Routine 05/13/2011 3:01 PM Re sults for this HORMONE-SENSITIVE CDT procedure are in (S-TSH) the results section. CREATINE KINASE (CK), Routine 05/13/2011 3:01 PM Results for this S CDT procedure are i n the results section. COMPREHENSIVE Routine 05/13/2011 3:01 PM Results for this METABOLIC PANEL, S/P CDT procedu re are in the results section. documented in this encounter Results DX Lumbar Spine 2-3 Views (05/13/2011 3:19 PM CDT) Anatomical Region Laterality Modality Lumbar Spine N/A Radiographic Imaging Specimen (Source) Anatomical Collection Method Collection Time Re ceived Time Location / / Volume Laterality 05/13/2011 3:19 PM CDT Addenda Addendum by Provider, Vannessa Rose o n 05/13/2011 3:19 PM CDT RAD^^^OW XR Lumbar Spine 2 or 3 views 05/13/2011 15:19:00 Narrative 05/13/2011 3:42 PM CDT Exam: ?? XR Lumbar Spine 2 or 3 views Clinical history: left hip and low back pain for years Comparison: None Findings: The lumbar spine vertebral bod y height and alignment are preserved. There is no cortical lucency to suggest fracture. There is no significant disc space narrowing. The visualized bones of the pelvis are intact. Impression: No significant degenerative change or acute injury noted. Procedure Note Vipin Mills M.D. / Provider, Bolivar turner M.D. - 06/29/2016 Exam: XR Lumbar Spine 2 or 3 views Clinical history: left hip and low back pain for years Comparison: None Findings: The lumbar spine vertebral bod y height and alignment are preserved. There is no cortical lucency to suggest fracture. There is no significant disc space narrowing. The visualized bones of the pelvis are intact. Impression: No significant degenerative change or acute injury noted. Aithai See R.T.(R) IMG DIAGNOSTIC IMAGING PROCE DURES DX Hips And Pelvis Left 1 View (05/13/2011 3:19 PM CDT) Anatomical Region Laterality Modality Lower Extremity, Pelvis, Hip Left Radiographi c Imaging Specimen (Source) Anatomical Collection Method Collection Time Re ceived Time Location / / Volume Laterality 05/13/2011 3:19 PM CDT Addenda Addendum by ProviderMilton M.D. o n 05/13/2011 3:19 PM CDT RAD^^^OW XR Pelvis Hip Left 1 view 05/13/2011 15:19:00 Narrative 05/13/2011 3:40 PM CDT Exam: ?? XR Pelvis Hip Left 1 view Clinical history: left hip and low back pain for years Comparison: None Findings: The bilateral sacroiliac joint s are within normal limits. The bilateral hips are unremarkable. The re is no cortical lucency to suggest fracture. There is no joint spac e narrowing. Impression: No evidence for fracture. No focal pathology identified to explain patient's pain. Procedure Note Vipin Mills M.D. / Provider, Bolivar turner M.D. - 06/29/2016 Exam: XR Pelvis Hip Left 1 view Clinical history: left hip and low back pain for years Comparison: None Findings: The bilateral sacroiliac joint s are within normal limits. The bilateral hips are unremarkable. The re is no cortical lucency to suggest fracture. There is no joint spac e narrowing. Impression: No evidence for fracture. No focal pathology identified to explain patient's pain. Aithai See R.T.(R) IMG DIAGNOSTIC IMAGING PROCE DURES (ABNORMAL) Dipstick, Urine (05/13/2011 3:02 PM CDT) [facility] Method Time Signature Source Clean Void POWERCHART Urine HXUr Color Yellow POWERCHART Appearance Clear POWERCHART Glucose Negative Negative POWERCHART HXBILIRUBIN Negative Negative POWERCHART Ketones, QL(U) Trace (A) Negative POWERCHART Specific >=1.030 1.016 - POWERCHART [place], POCT, U 1.022 HXBLOOD Negative Negative POWERCHART pH, POCT, Urine 5.5 5.0 - 8.0 POWERCHART Protein, Ur, Dip Negative Negative POWERCHART Urobilinogen 0.2 0.2 - 1.0 POWERCHART HXNITRITE Negative Negative POWERCHART Leukocyte Negative Negative POWERCHART Esterase Specimen (Source) Anatomical Collection Method Collection Time Re ceived Time Location / / Volume Laterality Urine 05/13/2011 3:02 PM CDT Oniel Bishop M.D. LAB URINE ORDERABLES Performing Organization Address City/State/ZIP Code Phon e Number POWERCHART Bacterial Culture, Aerobic, Urine (05/13/2011 3:02 PM CDT) Patholo gist Method Time Signature Bacterial POWERCHART Culture, Aerobic, Urine HXFinal See POWERCHART scanned/paper report. Test performed at [facility]. Specimen (Source) Anatomical Collection Method Collection Time Re ceived Time Location / / Volume Laterality Urine, Clean 05/13/2011 3:02 PM Catch CDT Oniel Bishop M.D. LAB MICROBIOLOGY - GENERAL O RDERABLES Performing Organization Address City/[facility]/ZIP Code Phon e Number POWERCHART Automated Differential (05/13/2011 3:01 PM CDT) P athologist Signature Neutro % 54.9 34.0 - 71.1 POWERCHART Lymphocytes % 33.5 19.3 - 51.7 POWERCHART HX Alfalfa % 9.6 4.7 - 12.5 POWERCHART HX Eos % 1.8 0.7 - 5.8 POWERCHART HX Baso % 0.2 0.1 - 1.2 POWERCHART Specimen Anatomical Collection Method Collection Time Receive d Time (Source) Location / / Volume Laterality Blood 05/13/2011 3:01 PM 2 3:01 CDT PM CDT Oniel Bishop M.D. LAB BLOOD ADD-ON Performing Organization Address City/[facility] Code Phon e Number POWERCHART Sedimentation Rate (05/13/2011 3:01 PM CDT) Analysis Performed At [facility] logist Time Signature Sedimentation 16 0 - 29 POWERCHART Rate, B MMHR Specimen (Source) Anatomical Collection Method Collection Time Re ceived Time Location / / Volume Laterality Blood 05/13/2011 3:01 PM CDT Oniel Bishop M.D. LAB BLOOD ADD-ON Performing Organization Address City/[facility] Phon e Number POWERCHART CBC with Differential (05/13/2011 3:01 PM CDT) P athologist Signature Leukocytes 8.3 3.5 - 10.5 POWERCHART UNITL Erythrocytes 4.17 3.90 - POWERCHART 5.03 UNITL Hemoglobin 12.2 12.0 - POWERCHART 15.5 GDL Hematocrit 36.6 34.9 - POWERCHART 44.5 MCV 87.8 81.6 - POWERCHART 98.3 FL Platelet Count 317 150 - 450 POWERCHART UNITL HX RDW 13.9 11.9 - POWERCHART 15.5 HXDifferential? Auto POWERCHART Specimen (Source) Anatomical Collection Method Collection Time Re ceived Time Location / / Volume Laterality Blood 05/13/2011 3:01 PM CDT Oniel Bishop M.D. LAB BLOOD ADD-ON Performing Organization Address City/[facility]/ZIP Code Phon e Number POWERCHART CK (Creatine Kinase) (05/13/2011 3:01 PM CDT) athologist Signature Creatine Kinase 63 38 - 176 POWERCHART (CK), S UNITL Specimen (Source) Anatomical Collection Method Collection Time Re ceived Time Location / / Volume Laterality Blood 05/13/2011 3:01 PM CDT Oniel Bishop M.D. LAB BLOOD ADD-ON Performing Organization Address City/[facility]/ZIP Code Phon e Number POWERCHART Thyroid-Stimulating Hormone-Sensitive (s-TSH) (05/13/2011 3:01 PM CDT) athologist Signature TSH, Sensitive 3.7 0.3 - 5.0 POWERCHART MIUL Comment: Test Performed by: [facility] Dpt of Lab Med and Pathology [address] [place] [address] Dye Operator: Drew choi III, M.D. Specimen (Source) Anatomical Collection Method Collection Time Re ceived Time Location / / Volume Laterality Blood 05/13/2011 3:01 PM CDT Oniel Bishop M.D. LAB BLOOD ADD-ON Performing Organization Address City/[facility]/ZIP Code Phon e Number POWERCHART (ABNORMAL) CMP (Comprehensive Metabolic Panel) (05/13/2011 3:01 PM CDT) Patholo gist Method Time Signature BUN (Blood Urea 11 6 - 20 POWERCHART Nitrogen), S MGDL Creatinine 0.6 (L) 0.7 - 1.2 POWERCHART MGDL Potassium, S 4.5 3.5 - 4.8 POWERCHART MMOLL Sodium, S 141 135 - 145 POWERCHART MMOLL Chloride, S 103 100 - 108 POWERCHART MMOLL CO2 Total 28 22 - 29 POWERCHART MMOLL Calcium, Total, S 10.0 8.5 - POWERCHART 10.5 MGDL Albumin, S 4.0 3.5 - 5.0 POWERCHART GMDL Alkaline 86 50 - 130 POWERCHART Phosphatase, S UNITL Aspartate 24 8 - 43 POWERCHART Aminotransferase UNITL (AST), S Alanine 36 9 - 52 POWERCHART Amniotransferase, LD UNITL Bilirubin, Total, S 0.5 0.1 - 1.0 POWERCHART MGDL Total Protein, S 7.2 6.3 - 8.2 POWERCHART MGDL BUN/Creatinine Ratio 18 POWERCHAR T eGFR Black/ >60 MLMIN POWERCHART Ethiopian Glucose, Fasting, S 93 70 - 99 POWERCHART MGDL HXeGFR (MDRD) >60 MLMIN POWERCHART Specimen (Source) Anatomical Collection Method Collection Time Re ceived Time Location / / Volume Laterality Blood 05/13/2011 3:01 PM CDT Oniel Bishop M.D. LAB BLOOD ADD-ON Performing Organization Address City/State/ZIP Code Phon e Number POWERCHART documented in this encounter Visit Diagnoses Not on filedocumented in this encounter Additional Health Concerns Assessment Noted Time PHQ-9 Depression Total Score: 16 05/13/2011 2:15 PM CD T documented as of this encounter
--- OUTSIDE RECORDS SUMMARY | 2021-11-07 19:46 | XMS_ITS | Encounter Summary ---
:1980 Author Organization [facility] Address [address] [place] [address] Care Team Providers Name Role Phone Unavailable Primary Care Provider Unavailable Encounter Details Date Type Department Care Team Description 06/25/2013 Hospital Encounter HX [facility] Tony Landaverde M.D. 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 - 06/25/2013 10:46 AM CDT [id number] CHIEF COMPLAINT/REASON FOR VISIT OB followup. HISTORY OF PRESENT ILLNESS Narinder is a 32-year-old, 1, para 0, female at 36+2 weeks by 8+0 week ultrasound, who presentsfor OB followup today. Narinder has several complaints today. The first is that she has left ear pain. She states that she was attempting to clean her ear out yesterday and since that time she has had pain. She is wondering what to do about the pain. 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 She is wondering if this is safe in . She also has pelvic discomfort making it difficult for her to roll over or move in bed very easily. This also causes her some discomfort when she is working. Also when she is up and about she has tightening of her lower abdomen and pelvic pressure likely consistent with contractions. This stops with rest. No vaginal bleeding or leakage of fluid. Positive movement. Howeverthe patient states that the baby does not move very much, approximately 1 time per day. MEDICATIONS See EMR. ALLERGIES See EMR. SYSTEMS REVIEW GENERAL: No fevers, chills, fatigue, unintentional weight loss or weight gain. HEENT: No changes in vision or hearing, no sore throat or nasal congestion. Positive left ear pain, see HPI. CARDIOVASCULAR: No chest pain, irregular heartbeat or [...] OF : 1. Scant care. 2. Latent tuberculosis, not treated. VITAL SIGNS See EMR. PHYSICAL EXAMINATION GENERAL: Well-nourished female, in no acute distress. HEENT: Left tympanic membrane not visible due to cerumen impaction, the outer ear canal has no signsof erythema or infection. The right tympanic membrane is pearly white with positive light reflex. ABDOMEN: Gravid, fundal height 37 cm, heart tones 130s, fetus vertex by Bobby's. LOWER EXTREMITIES: Nontender, trace edema bilateral lower extremities. IMPRESSION/REPORT/PLAN A 32-year-old, 1, para 0, female at 36+2 weeks by 8+0 week ultrasound, who presents for OB followup today. 1. care: issues addressed today include care provider, and the patient is unsure of who she would like to care for the baby. She plans to bottle feed. [place] education was performed and the patient was not aware that she is not to put items in the crib with the baby, not to allow the baby to sleep with her, and to lay the baby flat on its back. She also has many questions regarding supplies she will need when the baby is born. I will have my nurse contact [facility] to see if they can visit her prior to the delivery. 2. History of urinary frequency, incontinence, dysuria, nocturnal enuresis: This has been evaluated on multiple occasions and urinalysis has always been normal. Urine cultures have been normal as well.She does not complain of this today but she may follow up with Urology after delivery if she continues to have issues. 3. Gastroesophageal reflux disease: Well managed with omeprazole. 4. Difficult social situation: The patient is currently working at her new job. She was given a notethat states she cannot lift more than 20 pounds until 6 weeks . She was counseled that aches and pains are normal in and this will resolve after delivery. Also we will check into having [facility] Nurse see her. 5. Latent tuberculosis: This has not been treated and the patient was not able to tolerate therapy. I will refer her to primary care once she has delivered to discuss treatment of latent tuberculosis. 6. Cerumen impaction: I will refer the patient to primary care for this. 7. Decreased movement. Nonstress test was performed today and was reactive. The patient was counseled in movement monitoring, and needs to come in if she does not feel 10 movements in 2 hours. She was counseled on the need for hydration and to lie down and actually take time to feel the baby move. 8. Followup: The patient return in 1 week for OB followup. She will return to see family practice sooner for evaluation and management of her cerumen impaction. If she has any questions or concerns prior to that time she will call the clinic. Katy Landaverde M.D./scott Electronically Signed By: KATY LANDAVERDE MD On: 08/21/2013 01:52 PM Source: [facility] Document Id: [id number] documented in this encounter Procedure Notes Socorro Lopez L.P.N. - 06/25/2013 11:17 AM CDT Urine Dipstick Urine Dipstick Entered On: 06/25/2013 11:17 CDT Performed On: 06/25/2013 11:17 CDT by SOCORRO LOPEZ Urine Dipstick UA Protein POC : Trace UA Glucose POC : Negative SOCORRO LOPEZ - 06/25/2013 11:17 CDT Source: [facility] POWERCHART Document Id: [id number] CDT!4 Katy Landaverde M.D. - 06/25/2013 12:00 AM CDT 2RPT DIAGNOSIS NST procedure note INDICATION FOR TEST A 32-year-old, 1, para 0, female at 36+2 weeks by 8+0 week ultrasound, who presents for OB followup today but had complains of decreased movement. Once she was hooked up to the NST machine, she was feeling increased movement. PROCEDURE heart tones: Baseline 145, moderate variability, reactive, no decelerations. Tocometer: Possibly 1 contraction in 12 minutes on the monitor. IMPRESSION Reactive NST. Katy Landaverde M.D./scott Electronically Signed By: KATY LANDAVERDE MD On: 08/21/2013 01:53 PM Source: [facility] IVETT Document Id: [id number] documented in this encounter Miscellaneous Notes Miscellaneous - RaKaty power M.D. - 06/25/2013 12:22 PM CDT General Message Document Contains Addenda Addendum by FRANCINE CARTY on 26 Jun 2013 15:24:05 CDT Spoke with Nidhi at [facility]. Referral submitted. She will keep us posted when she comes into contact withpatient. Addendum by SOCORRO LOPEZ on 26 Jun 2013 14:32:29 CDT From: SOCORRO LOPEZ To: FB Obstetrics/Gynecology Nurse; Sent: 06/26/2013 14:32:29 CDT Subject: FW: General Message From: KATY LANDAVERDE MD To: SOCORRO LOPEZ; Sent: 06/25/2013 12:22:31 CDT Subject: General Message Please get in touch with one of the [facility] nurses to see if they could arrange tovisit this patient prior to delivery to assess her knowledge and situation. She is 36 weeks with her first baby and really has no idea about what she is going to need to care for the baby. Pippa has nothing for the baby, no carseat, crib, diapers, or anything. She needs significant education about how to care for the baby when it is born. Source: [facility] POWERCHART Document Id: [id number] Miscellaneous - Katy Landaverde M.D. - 06/25/2013 12:18 PM CDT Ambulatory Patient Summary [facility] [address] [place] [id number] Visit Information Name: NARINDER LUCAS [facility] Number: [id number] Visit Date: 06/25/2013 12:18:32 Attending Provider: KATY LANDAVERDE MD Primary Care [...] the Following Medications: Medication list as of 06-25-13 12:18 Attention: If you have any medications at [...] Electronically Signed By: KATY LANDAVERDE MD Signed On:25-JUN-2013 12:18:25 Additional Information: Source: [facility] POWERCHART Document Id: [id number] Miscellaneous - Katy Landaverde M.D. - 06/25/2013 12:18 PM CDT Ambulatory Discharge Medication List [address] [id number] Visit Information Name: NARINDER LUCAS [facility] Number: [id number] Visit Date: 06/25/2013 12:18:31 Attending Provider: KATY LANDAVERDE MD Primary Care Provider: PCP, UNASSIGNED - [facility] NARINDER LUCAS has been given the following [...] the Following Medications: Medication list as of 06-25-13 12:18 Attention: If you have any medications at [...] Electronically Signed By: KATY LANDAVERDE MD Signed On:25-JUN-2013 12:18:25 Additional Information: Source: [facility] YouFolioCHART Document Id: [id number] Cierra - Katy Landaverde M.D. - 06/25/2013 11:25 AM CDT Work Excuse 25 Jun 2013 NARINDER LUCAS [address] [place] [address] Dear NARINDER LUCAS, You were examined in my office on: 06/25/2013 Reason for work excuse: Medical Illness ( _ ) Yes ( X ) No Injury ( _ ) Yes ( X ) No Is excused from all work: ( _ ) Yes ( X ) No Has work limitations: ( X ) Yes ( _ ) No As follows: No lifting >20 lbs until after delivery. Limitations apply until: Until 6 weeks after delivery. Follow-Up Appointment : ( 1 week ) Return to Work date: NA Notes: NA Sincerely, KATY LANDAVERDE [address] [place], [place] [id number] Electronic Signature Electronically Signed By: KATY LANDAVERDE MD On: 25 Jun 2013 This document has images extracted. Source: [facility] POWERCHART Document Id: [id number] Electronically signed by Conversion, [facility] Core Drill Operator Helper [id number] at 07/05/2016 8:25 PM CDT Cierra - Socorro Lopez L.P.N. - 06/25/2013 11:04 AM CDT Adult Celery Tier Intake/History Adult Celery Tier Intake/History Entered On: 06/25/2013 11:07 CDT Performed On: 06/25/2013 11:04 CDT by SOCORRO LOPEZ Intake Chief Complaint : ob check 36 / LMP Date : 09-23-2012 Systolic Blood Pressure : 98 mmHg Diastolic Blood Pressure : 62 mmHg NIBP Mean : 74 mmHg Actual Weight : 118.5 kg(Converted to: 261 lb 4 oz) Dosing Weight Clinic : 118.5 kg SOCORRO LOPEZ - 06/25/2013 11:04 CDT General Info Information Given By : Patient Languages : French SOCORRO LOPEZ - 06/25/2013 11:04 CDT Subjective Pain Symptoms : Yes SOCORRO LPOEZ - 06/25/2013 11:04 CDT Pain Pain Assessment Grid Pain 1 Location : Other: alot of pelvic pressure also c/o of L ear hurting SOCORRO LOPEZ - 06/25/2013 11:04 CDT Dependent Habits Tobacco Use/Currently Using : No Exposure to Tobacco Smoke : Other: never Smoking Status : Never smoker SOCORRO LOPEZ - 06/25/2013 11:04 CDT Caffeine Use Grid Caffeine Use : Current Type : Chocolate, Coffee, Soft drinks, Tea Frequency : Daily SOCORRO LOPEZ - 06/25/2013 11:04 CDT Source: [facility] POWERCHART Document Id: [id number] CDT!27 documented in this encounter Plan of Treatment Upcoming Encounters Date Type Specialty Care Team Description 11/09/2021 Office Visit Family Medicine Fadia Merchant M.D. [address] [phone] (Wo rk) 11/10/2021 Office Visit Family Medicine Zacarias Sarabia M.B.B.S., M.D. [address] [facility] [place] [place] [phone] (Wo rk) 11/11/2021 Comprehensive Visit Orthopedic Surgery Ivan Deng M.D. [address] [facility] [place] [place] [phone] (Wo rk) documented as of this encounter Procedures Procedure Name Priority Date/Time Associated Comments Diagnosis DIPSTICK, POCT, U Routine 06/25/2013 11:17 AM Res ults for this (NURSING) INTERFACED CDT procedu re are in the results section. documented in this encounter Results Dipstick, POCT, Urine (nursing) (06/25/2013 11:17 AM CDT) P athologist Signature Protein, POCT, Trace POWERCHART U Glucose, POCT, Negative POWERCHART U Specimen (Source) Anatomical Collection Method Collection Time Re ceived Time Location / / Volume Laterality 06/25/2013 11:17 AM CDT Katy Landaverde M.D. 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
--- OUTSIDE RECORDS SUMMARY | 2021-11-07 19:47 | XMS_ITS | Encounter Summary ---
:1980 Author Organization [facility] Address [facility] [place] [address] Care Team Providers Name Role Phone No Ref-Primary, Physician Primary Care Provider Trinity Aguilar Unavailable Unavailable Zacarias Coleman MD Unavailable Encounter Details Date Type Department Care Team Description 03/19/2021 Orders Only [facility] Zacarias Coleman, Mild re current major Clinic [place] depression (H) [id number] [place] [phone] [id number] Social History Tobacco Use Types Packs/Day Years Used Date Never Smoker Smokeless Tobacco: Never Used Alcohol Use Standard Drinks/Week Comments No 0 (1 standard drink = 0.6 oz pure alcoho l) Sex Assigned at Date Recorded Female 04/28/2021 11:49 AM CDT COVID-19 Exposure Response Date Recorded In the last month, have you been in contact with No / Unsure 03/16/2021 4:30 PM WAREHOUSE PERSON someone who was confirmed or suspected to have Coronavirus / COVID-19? documented as of this encounter Plan of Treatment Not on filedocumented as of this encounter Visit Diagnoses Diagnosis Mild recurrent major depression (H) Major depressive disorder, recurrent epi sode, mild documented in this encounter Additional Health Concerns Assessment Noted Time PHQ-9 Depression Total Score: 21 03/12/2021 11:[address] documented as of this encounter Care Teams Swatch Checker Relationship Specialty Start Date End Date No Ref-Primary, PCP - General 03/09/21 04/12/21 Physician Trinity Aguilar Personal Advocate & Liaison Family Medicine 2 ([facility]) Zacarias Coleman MD Assigned PCP 02/12/21 04/11/21 [address] [place] [address] documented as of this encounter
--- OUTSIDE RECORDS SUMMARY | 2021-11-07 19:47 | XMS_ITS | Encounter Summary ---
:1980 Author Organization [facility] Address [address] [place] [address] Care Team Providers Name Role Phone No Ref-Primary, Physician Primary Care Provider [phone] Trinity Aguilar Unavailable Unavailable Zacarias Coleman MD Unavailable Encounter Details Date Type Department Care Team Description 04/02/2021 Travel Social History Tobacco Use Types Packs/Day Years Used Date Never Smoker Smokeless Tobacco: Never Used Alcohol Use Standard Drinks/Week Comments No 0 (1 standard drink = 0.6 oz pure alcoho l) Sex Assigned at Date Recorded Female 04/28/2021 11:49 AM CDT COVID-19 Exposure Response Date Recorded In the last month, have you been in contact with No / Unsure 04/02/2021 3:27 PM HEAD CUSTODIAN someone who was confirmed or suspected to have Coronavirus / COVID-19? documented as of this encounter Plan of Treatment Not on filedocumented as of this encounter Visit Diagnoses Not on filedocumented in this encounter Additional Health Concerns Assessment Noted Time PHQ-9 Depression Total Score: 21 03/12/2021 11:[address] documented as of this encounter Care Teams Server Engineer Relationship Specialty Start Date End Date No Ref-Primary, PCP - General 03/09/21 04/12/21 Physician Trinity Aguilar Personal Advocate & Liaison Family Medicine 2 (PAL) Zacarias Coleman MD Assigned PCP 02/12/21 04/11/21 [address] [place] [address] documented as of this encounter
--- OUTSIDE RECORDS SUMMARY | 2021-11-07 19:47 | XMS_ITS | Clinical Summary ---
:1980 Author Organization [facility] Address [address] [place] [address] Care Team Providers Name Role Phone Trinity Aguilar Unavailable Unavailable Rose Morrow FLOUR TESTER Primary Care Provider Zaid Weston-C Unavailable [phone] Humera Rodriguez APRN CONFIGURATION MANAGEMENT ADVISOR Unavailable Allergies No known active allergies Medications Medication Sig Dispensed Refills Start Date End Date Status Vit Take 1 tablet by 0 Active w/Qc-Pbuhojwxo-WX (PNV mouth daily PO) traZODone (DESYREL) Take 50-200 mg 0 01/14/2021 12/0 09/2021 Active 100 MG tablet by mouth desvenlafaxine Take 1 tablet 90 tablet 1 03/12/2021 Active succinate (PRISTIQ) (100 mg) by 100 MG 24 hr mouth daily tabletIndications: profile Mild recurrent major depression (H) mirabegron (MYRBETRIQ) Take 50 mg by 0 Active 50 MG 24 hr tablet mouth DULoxetine (CYMBALTA) Take 20 mg by 0 11/25/2020 Active 20 MG capsule mouth daily topiramate (TOPAMAX) Take 25 mg by 0 12/19/2020 Active 25 MG tablet mouth 2 times daily Vitamin D3 Take 1 tablet 100 tablet 3 03/19/2021 Act aline (CHOLECALCIFEROL) 25 (25 mcg) by mcg (1000 units) mouth daily tabletIndications: Vitamin D deficiency buPROPion (WELLBUTRIN Take 1 tablet 90 tablet 0 03/25/2021 Active XL) 150 MG 24 hr (150 mg) by tabletIndications: mouth every Mild recurrent major morning depression (H) cyclobenzaprine Take 1 tablet 18 tablet 0 04/02/2021 Active (FLEXERIL) 10 MG (10 mg) by mouth tablet 3 times daily as needed for muscle spasms Do not use within 4 hours of trazodone ibuprofen Take 2 tablets 60 tablet 0 04/02/2021 Acti ve (ADVIL/MOTRIN) 200 MG (400 mg) by tablet mouth every 8 hours as needed naproxen (NAPROSYN) Take 1 tablet 60 tablet 0 04/06/2021 Active 500 MG (500 mg) by tabletIndications: mouth 2 times Acute midline low back daily (with pain without sciatica meals) polyethylene glycol Take 17 g by 510 g 0 04/06/2021 Active (MIRALAX) 17 GM/Dose mouth daily powderIndications: Fall, subsequent encounter, Acute midline low back pain without sciatica SENNA-docusate sodium Take 1 tablet by 30 tablet 0 04/06/2021 Active (SENNA S) 8.6-50 MG mouth At Bedtime tabletIndications: Fall, subsequent encounter, Acute midline low back pain without sciatica cephALEXin (KEFLEX) 0 11/12/2020 Active 500 MG capsule DULoxetine (CYMBALTA) Take 30 mg by 0 05/09/2020 Active 30 MG capsule mouth daily ergocalciferol TAKE 1 CAPSULE 0 11/18/2020 Active (ERGOCALCIFEROL) 1.25 BY MOUTH 1 TIME MG (17317 UT) capsule A WEEK ondansetron Take 4 mg by 0 03/22/2020 Acti ve (ZOFRAN-ODT) 4 MG ODT mouth tab oxyCODONE (ROXICODONE) Take 5 mg by 0 04/03/2021 Active 5 MG tablet mouth Vit-DSS-Fe 0 04/15/2021 Active Fum-FA (SE-SUKHI 19) 29-1 MG TABS sulfamethoxazole-trime TAKE 1 TABLET BY 0 11/06/2020 Active thoprim (BACTRIM DS) MOUTH TWICE 800-160 MG tablet DAILY FOR 10 DAYS tiZANidine (ZANAFLEX) TAKE 1/2 TO 1 0 05/13/2020 Active 2 MG tablet TABLET BY MOUTH TWICE DAILY NEEDED FOR MUSCLE PAIN OR TENSION triamcinolone APPLY TOPICALLY 0 10/30/2020 Active (KENALOG) 0.1 % TO THE AFFECTED external cream AREA TWICE DAILY FOR ATOPIC DERMATITIS Active Problems Problem Noted Date Prediabetes 03/12/2021 Last Assessment & Plan: Formatting of th is note might be different from the original. She reports this is present. Morbid obesity 03/12/2021 Last Assessment & Plan: Formatting of th is note might be different from the original. Body mass index is 58.58 kg/m??. She rep orts previous clinic would not consider surgery due to depression. Sh has been involved in medical weight loss CAMRYN (obstructive sleep apnea) 03/12/2021 Last Assessment & Plan: Formatting of th is note might be different from the original. Study last fall, currently untreated. I recommend she use her CPAP. Her mental status concerns c/w untreated sleep apnea Mild recurrent major depression 03/12/2021 Last Assessment & Plan: Formatting of th is note is different from the original. recently had pristiq added to hi dose bu propion. PHQ-9 score: PHQ 03/12/2021 PHQ-9 Total Score 21 Q9: Thoughts of better off /self-veronica m past 2 weeks Not at all Reduce bupropion, increase pristiq Encounter for immunization 03/12/2021 Last Assessment & Plan: Formatting of th is note might be different from the original. offered Hyperlipidemia LDL goal <160 03/12/2021 Last Assessment & Plan: Formatting of th is note might be different from the original. She reports this is present Midline low back pain without sciatica 03/12/2021 Last Assessment & Plan: Formatting of th is note might be different from the original. Imaged May 2020, mild DJD. Cannot kip d as above Pain in both knees 03/12/2021 Last Assessment & Plan: Formatting of th is note might be different from the original. Must sit on a stool to do dishes. Cannot stand long enough to wash hands Vitamin D deficiency 03/12/2021 Last Assessment & Plan: Formatting of th is note might be different from the original. On hi dose repletion Insomnia due to medical condition 03/12/2021 Last Assessment & Plan: Formatting of th is note might be different from the original. Trazodone therapy OCD (obsessive compulsive disorder) 01/14/2021 Hyperinsulinemia 11/19/2020 Overactive bladder 08/19/2020 Mixed stress and urge urinary incontinence 09/13/2019 Overview: Formatting of this note might be differe nt from the original. Formatting of this note might be differe nt from the original. Added automatically from request for geoffrey dontae [id number] Formatting of this note might be differe nt from the original. Added automatically from request for geoffrey dontae [id number] Urinary frequency 09/13/2019 Overview: Formatting of this note might be differe nt from the original. Formatting of this note might be differe nt from the original. Added automatically from request for geoffrey dontae [id number] Formatting of this note might be differe nt from the original. Added automatically from request for geoffrey dontae [id number] Binge eating disorder 07/28/2017 Right lower quadrant abdominal pain 09/11/2016 Persistent depressive disorder 04/30/2016 Edema 01/04/2011 Major depression, recurrent 02/19/2010 Resolved Problems Problem Noted Date Resolved Date Indication for care in labor or delivery 04/09/2013 03/12/2021 Immunizations Name Administration Dates Next Due COVID-19,PF,Moderna Booster 03/12/2021 FLU 6-35 months 03/01/2012 Flu, Unspecified 05/02/2013 HepB-Adult 01/12/2005, 08/14/2004, 07/10/2004 Influenza (IIV3) PF 11/03/2011, 12/15/2006 Influenza Vaccine IM > 6 months 03/12/2021, 10/27/2019, 03/10, Valent IIV4 (Alfuria,Fluzone) 12/26/2017, 11/28/2013 MMR 08/14/2004, 07/10/2004 Mantoux Tuberculin Skin Test 08/18/2004 Poliovirus, inactivated (IPV) 10/03/2012 Td (Adult), Adsorbed 02/16/2005, 08/14/2004, 07/10/2004 Tdap (Adacel,Boostrix) 07/05/2013, 06/30/2013, 11/03/2011 Typhoid IM 10/03/2012 Varicella 08/14/2004, 07/10/2004 Yellow Fever 10/03/2012 Social History Tobacco Use Types Packs/Day Years Used Date Never Smoker Smokeless Tobacco: Never Used Alcohol Use Standard Drinks/Week Comments No 0 (1 standard drink = 0.6 oz pure alcoho l) Sex Assigned at Date Recorded Female 04/28/2021 11:49 AM CDT Last Filed Vital Signs Vital Sign Reading Time Taken Comments Blood Pressure 138/82 04/28/2021 2:42 PM CDT Pulse 90 04/13/2021 6:38 PM WHITTLING ROOM OPERATOR Temperature 36.4 ??C (97.5 ??F) 04/13/2021 3:43 PM WHITTLING ROOM OPERATOR Respiratory Rate 18 04/13/2021 6:38 PM WHITTLING ROOM OPERATOR Oxygen Saturation 99% 04/13/2021 6:38 PM WHITTLING ROOM OPERATOR Inhaled Oxygen Concentration - - Weight 168 kg (370 lb 6.4 oz) 04/28/2021 2:42 PM CDT Height 170.2 cm (5' 7) 04/28/2021 2:42 PM CDT Body Mass Index 58.01 04/28/2021 2:42 PM CDT Plan of Treatment Health Maintenance Due Date Last Done Comments ADVANCE CARE PLANNING 1980 DEPRESSION ACTION PLAN 1982 PREVENTIVE CARE VISIT 1980 PAP 11/08/2003 COVID-19 Vaccine (4 - 05/07/2021 03/12/2021, 06/12/2020, Booster for Moderna 05/14/2020 series) PHQ-9 09/09/2021 03/12/2021 INFLUENZA VACCINE (#1) 2021 03/12/2021, 10/27/2019, 03/21/2019, Additional history exists ANNUAL REVIEW OF HM ORDERS 03/12/2022 03/12/2021 DTAP/TDAP/TD IMMUNIZATION 07/06/2023 07/05/2013, 06/30/2013 , (7 - Td or Tdap) 11/03/2011, Additional history exists HEPATITIS C SCREENING Addressed 08/18/2004 Overridden with the intention of not completing the t opic HEPATITIS B IMMUNIZATION Aged Out 01/12/2005, 08/14/2004, No longer eligible based 07/10/2004 on patient's age to complete this to [facility] HIV SCREENING Addressed 08/18/2012 Overridden with the intention of not completing the t opic IPV IMMUNIZATION Aged Out 10/03/2012 No longer eligi ble based on patient's age to complete this to pic MENINGITIS IMMUNIZATION Aged Out No longe r eligible based on patient's age to complete this to pic Pneumococcal Vaccine: Aged Out No longer eligible based Pediatrics (0 to 5 Years) on pat ient's age to and At-Risk Patients (6 to compl ete this topic 64 Years) Insurance Payer Benefit Plan / Subscriber ID Effective Dates Phone Addre ss Type Group [facility] [id number] 2021-Present [phone] [address] [place] [address] Care Teams Flying Instructor Relationship Specialty Start Date End Date Rose Morrow, FLOUR TESTER PCP - General 04/13/21 [employer] [id number] [place] [id number] Trinity Aguilar Personal Advocate & Family Medicine 03/13/21 Liaison (PAL) Zaid Weston, Assigned Surgical Provider [address] [place] [id number] Humera Rodriguez APRN Assigned PCP 04/12/21 CONFIGURATION MANAGEMENT ADVISOR [id number] [facility] [place]REDON[place] [id number]
--- OUTSIDE RECORDS SUMMARY | 2021-11-07 19:47 | XMS_ITS | Encounter Summary ---
:1980 Author Organization [facility] Address [address] [place] [address] Care Team Providers Name Role Phone No Ref-Primary, Physician Primary Care Provider [phone] Trinity Aguilar Unavailable Unavailable Fidel Coleman MD Unavailable Reason for Visit Reason Onset Date Comments Medication Question 03/18/2021 Encounter Details Date Type Department Care Team Description 03/18/[address] [facility] Fidel Coleman MD Medication Question [address] [id number] [phone] Social History Tobacco Use Types Packs/Day Years Used Date Never Smoker Smokeless Tobacco: Never Used Alcohol Use Standard Drinks/Week Comments No 0 (1 standard drink = 0.6 oz pure alcoho l) Sex Assigned at Date Recorded Female 04/28/2021 11:49 AM CDT COVID-19 Exposure Response Date Recorded In the last month, have you been in contact with No / Unsure 03/16/2021 4:30 PM PRESSROOM FOREMAN someone who was confirmed or suspected to have Coronavirus / COVID-19? documented as of this encounter Miscellaneous Notes Telephone Encounter - Minerva Marlow S - 03/19/2021 3:35 PM CST Pt was contacted/advised Vitamin D was sent to pharmacy. Minerva Marlow/EMT-B [facility] / [place] SROOM FOREMAN Telephone Encounter - Fidel Coleman MD - 03/19/2021 3:19 PM CST Sent Fidel Coleman MD SROOM FOREMAN Telephone Encounter - Madiha Johnson RN - 03/19/2021 12:20 PM CST SHANNAN RN spoke w/pt r recent change in medication as followed: desvenlafaxine was 25, increased to 100 mg Reconciliation feature also notes pt prescribed duloxetine 60, topamax 25 Bupropion was to be 300, then 150: ins won't fill that way, so I sent 150 mg only ?? Please review taking/not taking duloxetine and topamax ?? Fidel Coleman MD Pt continued to question the changes in pt.'s desvenlafaxine dose from 25 mg (1 tablet) daily to 100(4 tablets) mg daily as pt was comparing the current prescribed dose to a dose prescribed to pt in January 2021 by pt.'s psychiatrist. SHANNAN RN reviewed all of pt's medication dosages w/pt w/a verbal read-back from pt and verbalized understanding. Pt then asked if Dr.Brian Virginia MD wished to see he back for a follow-up after pt.'s 03/12/[address]Brian Virginia MD's note stated approximately around 04/23/2021. Appointment schedule for pt fora F/U on 04/23/2021 @ 10:10 AM for a medication check. Pt then asked for her lab results from her 03/12/[address]Brian Virginia MD had reviewed pt.'s labs and made the following notation: Still prediabetes. Check cholesterol again when you are 42. Weight loss will help both. FIDEL CAMPBELL RN and pt reviewed diet change options and exercise suggestions for pt to assist in weight loss.Pt states she is eager to loose some weight and lower pt.'t A1C and cholesterol levels. Pt would like to know if Dr.Brian Virginia MD would consider ordering an rx for Vitamin D for pt as pt's level was: Vitamin D, Total (25-Hydroxy) 15??Low?? . Please advise. Madiha Johnson, Registered Nurse, SHANNAN (Patient Advocate Liaison) [facility] SROOM FOREMAN Telephone Encounter - Fidel Coleman MD - 03/19/2021 11:48 AM CST desvenlafaxine was 25, increased to 100 Reconciliation feature also notes pt prescribed duloxetine 60, topamax 25 Bupropion was to be 300, then 150: ins won't fill that way, so I sent 150 only Please review taking/not taking duloxetine and topamax Fidel Coleman MD SROOM FOREMAN Telephone Encounter - Madiha Johnson RN - 03/18/2021 5:23 PM CST SHANNAN RN called pt re: call below to address pt.'s questions re: desvenlafaxine succinate (PRISTIQ) 100 MG 24 hr tablet that is a new dose for pt after seeing Dr.Brian Virginia MD on 03/12/2021. Pt states she came from the pharmacy today after picking up her rx and pt had questions as pt was told by Pharmacy that a prior authorization was now needed for pt's rx. PAL RN let pt know that when dosages or monthly quantity of drug increases, insurance companies will often want a PA, and pt verbalized understanding. Pt was still confused and PAL RN explained to pt how pt's dose changed. Pt then asked PAL RN to confer w/Dr.Brian Virginia MD about perhaps lowering pt's dose, so I'm not taking so many tablets. I don'tthink I'll remember to take four (4) tablets everyday. You will ask him for me, right? This SHANNAN RN believes pt would benefit from an MTM visit for education. Pt uses : [place], [place] - [address] [facility], . Please advise. Madiha Johnson, Registered Nurse, SHANNAN (Patient Advocate Liaison) [facility] SROOM FOREMAN Telephone Encounter - Kassie Wilson - 03/18/2021 4:45 PM CST Patient Lance Barcenas calling. She said Dr. Fidel Coleman prescribed a new dose of her medication Desvenlafaxine but when she went to the pharmacy, it sounds like all that was there was a refill from [facility] With same dosage. I asked her if there was new medication from Dr. Fidel Coleman at the pharmacy for her and she does not know. Is there a new prescription from Dr. Fidel Coleman to take 4 a day? Patient said that is what he changed it too. Please call patient back at [phone] GRISEL. Thank you! She has voicemail and you can leave a detailed message. SROOM FOREMAN documented in this encounter Plan of Treatment Not on filedocumented as of this encounter Visit Diagnoses Diagnosis Vitamin D deficiency - Primary Unspecified vitamin D deficiency documented in this encounter Additional Health Concerns Assessment Noted Time PHQ-9 Depression Total Score: 21 03/12/2021 11:[address] documented as of this encounter Care Teams Corner Trimmer Operator Relationship Specialty Start Date End Date No Ref-Primary, PCP - General 03/09/21 04/12/21 Physician Trinity Aguilar Personal Advocate & Liaison Family Medicine 2 (PAL) Fidel Coleman MD Assigned PCP 02/12/21 04/11/21 [id number] [place] [address] documented as of this encounter
--- OUTSIDE RECORDS SUMMARY | 2021-11-07 19:47 | XMS_ITS | Encounter Summary ---
:1980 Author Organization [facility] Address [address] [place] [address] Care Team Providers Name Role Phone Aluren, Trinity Unavailable Unavailable Rose Morrow FLOW NURSE Primary Care Provider Humera Rodriguez HORIZONTAL DRILL OPERATOR IN SCHOOL SUSPENSION COORDINATOR Unavailable Reason for Visit Reason Onset Date Comments Erroneous encounter-disregard Erroneous encounter-disregard 04/13/2021 Encounter Details Date Type Department Care Team Description 04/13/2021 Virtual Visit [facility] Kasandra Pendleton, ERRO NEOUS [facility] Rui COLVIN ENCOUNTER--DISREGARD [id number] [address] [id number] [place] (Prim nolvia Dx) vd [facility] [place] [id number] [place] [id number] Social History Tobacco Use Types Packs/Day Years Used Date Never Smoker Smokeless Tobacco: Never Used Alcohol Use Standard Drinks/Week Comments No 0 (1 standard drink = 0.6 oz pure alcoho l) Sex Assigned at Date Recorded Female 04/28/2021 11:49 AM CDT COVID-19 Exposure Response Date Recorded In the last month, have you been in contact with No / Unsure 04/06/2021 11:09 AM COMBATANT DIVER QUALIFIED someone who was confirmed or suspected to have Coronavirus / COVID-19? documented as of this encounter Progress Notes Madonna Esquivel, SATHISH - 04/13/2021 12:00 PM CST Left message to schedule in person for his back at his regular clinic. This patient is located in [facility], we are in [facility]. Madonna Esquivel CMA This encounter was opened in error. Please disregard. ATANT DIVER QUALIFIED documented in this encounter Plan of Treatment Not on filedocumented as of this encounter Visit Diagnoses Diagnosis ERRONEOUS ENCOUNTER--DISREGARD - Primary documented in this encounter Additional Health Concerns Assessment Noted Time PHQ-9 Depression Total Score: 03/12/2021 11:[address] documented as of this encounter Care Teams Senior Data Warehouse Developer Relationship Specialty Start Date End Date Rose Morrow, FLOW NURSE PCP - General 04/13/21 [facility] [address] [address] [place] [address] Trinity Aguilar Personal Advocate & Family Medicine 03/13/21 Liaison (PAL) Humera Rodriguez APRN Assigned PCP 04/12/21 IN SCHOOL SUSPENSION COORDINATOR [id number] [facility] [place] [id number] documented as of this encounter
--- OUTSIDE RECORDS SUMMARY | 2021-11-07 19:47 | XMS_ITS | Encounter Summary ---
:1980 Author Organization [facility] Address [address] [place] [id number] Care Team Providers Name Role Phone Unavailable Primary Care Provider Unavailable Reason for Visit Reason Comments Abdominal Pain Encounter Details Date Type Department Care Team Description 05/01/2013 Hospital Encounter [facility] Bettina Gonzalez, Indication for care [facility] Birthplace in labor or delivery [address] [place] (Primary Dx) [facility] [id number] [place] [phone] [place] [address] Social History Tobacco Use Types Packs/Day Years Used Date Never Smoker Alcohol Use Standard Drinks/Week Comments No 0 (1 standard drink = 0.6 oz pure alcoho l) Sex Assigned at Date Recorded Female 04/28/2021 11:49 AM CDT documented as of this encounter Last Filed Vital Signs Vital Sign Reading Time Taken Comments Blood Pressure 119/73 05/01/2013 9:00 PM CDT Pulse 99 05/01/2013 9:00 PM CDT Temperature 37.1 ??C (98.8 ??F) 05/01/2013 9:00 PM CDT Respiratory Rate - - Oxygen Saturation - - Inhaled Oxygen Concentration - - Weight - - Height - - Body Mass Index - - documented in this encounter Discharge Instructions Discharge InstructionsRebeca Iniguez - 05/01/2013 10:48 PM CDT Discharge Instruction for Undelivered Patients You were seen for:evaluation of abdominal/back pain and vaginal discharge We Consulted: Dr. gonzalez You had (Test or Medicine): a urine test done, and tylenol for pain Diet: regular Activity: as tolerated. Call your provider if you notice: Swelling in your face or increased swelling in your hands or legs. Headaches that are not relieved by Tylenol (acetaminophen). Changes in your vision (blurring: seeing spots or stars.) Nausea (sick to your stomach) and vomiting (throwing up). Weight gain of 5 pounds or more per week. Heartburn that doesn't go away. Signs of bladder infection: pain when you urinate (use the toilet), need to go more often and more urgently. The bag of garcia (rupture of membranes) breaks, or you notice leaking in your underwear. Bright red blood in your underwear. Abdominal (lower belly) or stomach pain. For first baby: Contractions (tightening) less than 5 minutes apart for one hour or more. Increase or change in vaginal discharge (note the color and amount) Other: Other: Call your clinic tommorow to be seen this week to follow up in the clinic regarding your urine results documented in this encounter Medications at Time of Discharge Medication Sig Dispensed Refills Start Date End Date Vit Take 1 tablet by 0 w/Gr-Lqzpkcbxo-FO (PNV PO) mouth daily documented as of this encounter Miscellaneous Notes Plan of Care - Rebeca Iniguez - 05/01/2013 10:57 PM CDT Discharge instructions given and reviewed with pt. Informed pt there is blood in her urine and to follow up in her clinic this week by her physician. Pt states she will call tommorow to be seen this week. Instructed pt to notify her physician if she has any bright red vaginal bleeding, her water breaks, decreased movement, or PIH symptoms or if she experiences any sharp flank pain in her back. Described to pt what flank pain is and the possible cx of this and this is why there could possibly be blood in her urine when we did the UA test. Re also symptoms of a bladder infection. Encouraged patient to be drinking plenty of water and eating regularly. Pt verbalized understanding and dischaged home per Dr. Gonzalez. Denied any pain at discharge Provider Notification - Rebeca Iniguez - 05/01/2013 10:38 PM CDT 05/01/137 Provider Notification Notification Reason Lab/Diagnostic Study Dr. gonzalez called and reviewed lab UA results with her. 48 RBC noted in urine. Pt denying any flankpain. Orders to dc home and have pt follow up tommorow in her clinic. Provider Notification - Rebeca Iniguez - 05/01/2013 9:29 PM CDT 05/01/138 Provider Notification Notification Reason Patient Arrived;Uterine Activity;Pain;Status Update Dr. gonzalez called and updated. Re primip here 29wks for eval of lower abdominal and leg pain and evaluation of discharge she noticed tonight after working today which consisted of heavy lifting of boxes, moving heavy equipment and carrying heavy items to and fro. No contractions on monitor noted. Abdomen palpates soft, denies cramping, tightnings, contractions, Re FHR baseline, accels. No leaking, bleeding noted. Orders to send UA. May offer tylenol 650 and may dc pt home if UA negative. No orders to check cervix Plan of Care - Rebeca Iniguez - 05/01/2013 8:47 PM CDT primip here for eval of lower abdominal pain and evaluation of vaginal discharge. Pt states she started a new job today which requires lifting 50 pounds of boxes and states she felt lower abdominal pain after doing this today. States she also noticed some white mucousy dischage also. Complains of back/leg pain and her feet feel numb after performing these heavy lifting tasks at her job today. Pt states she did not tell employee she was .pt states she did not have any pain prior to performingthese tasks today. She said it involved picking up heavy objects , pushing heavy equipment and walking with heavy items to and fro. No leaking or bleeding noted, abdomen nontender, palpates soft. Placed on EFMx2. No contractions noted on monitor. Pt has been seen the doctor in [facility] and plans to deliver there also. Pt was coming from her job in [place] and stopped here because she could not get ahold of her physician. Will evaluate and call the MD call or contact centre operator documented in this encounter Plan of Treatment Not on filedocumented as of this encounter Procedures Procedure Name Priority Date/Time Associated Comments Diagnosis UA MACROSCOPIC WITH STAT 05/01/2013 9:00 PM Re sults for this REFLEX TO MICRO AND CDT procedur e are in CULTURE the results section. documented in this encounter Results (ABNORMAL) UA reflex to Microscopic and Culture (05/01/2013 9:00 PM CDT) [facility] Method Time Signature Color Urine Yellow [facility] Appearance Urine Slightly [place] Cloudy [facility] Glucose Urine Negative NEG mg/dL [facility] Bilirubin Urine Negative NEG [facility] Ketones Urine 5 (A) NEG mg/dL [facility] Specific [place] 1.020 1.003 - [place] Urine 1.035 [facility] Blood Urine Negative NEG [facility] pH Urine 5.5 5.0 - 7.0 [place] pH [facility] Protein Albumin 10 (A) NEG mg/dL [facility] Urobilinogen Normal 0.0 - 2.0 [place] mg/dL mg/dL [facility] Nitrite Urine Negative NEG [facility] Leukocyte Negative NEG [place] Esterase Urine [facility] Source Midstream [facility] RBC Urine 48 (H) 0 - 2 [place] /HPF [facility] WBC Urine 1 0 - 2 [place] /HPF [facility] Squamous 5 (H) 0 - 1 [place] Epithelial /HPF /HPF [facility] Mucous Urine Present (A) NEG /LPF [facility] Specimen Anatomical Collection Method Collection Time Receive d Time (Source) Location / / Volume Laterality Urine specimen MID-STREAM URINE 05/01/2013 9:00 PM 9:52 (specimen) SPECIMEN / Unknown CDT PM CDT Bettina Gonzalez MD LAB - URINE ORDERABLES Performing Organization Address City/State/ZIP Code Phon e Number M [facility] [address] [place], [place] [address] [facility] documented in this encounter Visit Diagnoses Diagnosis Indication for care in labor or delivery - Primary Unspecified indication for care or inter vention related to labor and delivery, unspecified as to episode of care documented in this encounter Administered Medications Inactive Administered Medications - up to 3 most recent administrations Medication Order MAR Action Action Date Dose Rate Site acetaminophen (TYLENOL) tablet 650 Given 05/01/2013 9:52 PM CDT 650 mg mg 650 mg, Oral, ONCE, On Tue05/01/13 at 2145, For 1 dose, MAX Acetaminophen dose is 4 gm/24 hr. Maximum acetaminophen dose from all sources = 75 mg/kg/day not to exceed 4 grams/day. documented in this encounter Active and Recently Administered Medications Times are shown in CDT. Scheduled Medication Order 04/29/2013 04/30/2013 05/01/2013 acetaminophen (TYLENOL) tablet 650 mg (COMPLETED) 2151 (Given - Provider: Rebeca Iniguez) 650 mg, Oral, ONCE, Tue05/01/13 at 2145, For 1 dose, MAX Acetaminophen dose is 4 gm/24 hr. Maximum acetaminophen dose from all sources = 75 mg/kg/day not to exceed 4 grams/day. documented in this encounter
--- OUTSIDE RECORDS SUMMARY | 2021-11-07 19:47 | XMS_ITS | Encounter Summary ---
:1980 Author Organization [place] Address [facility] [place] [address] Care Team Providers Name Role Phone No Ref-Primary, Physician Primary Care Provider [phone] Trinity Aguilar Unavailable Unavailable Zacarias Coleman MD Unavailable Reason for Visit Reason Comments Fall Encounter Details Date Type Department Care Team Description [facility], [facility] SEEDLING PULLER MANAGER COST Acute midline low back pain without scia portia; [address] [facility] Drug- induced constipation; [facility] Morbid obesity (H) [address] [place] [address] [place] [address] Social History Tobacco Use Types Packs/Day Years Used Date Never Smoker Smokeless Tobacco: Never Used Alcohol Use Standard Drinks/Week Comments No 0 (1 standard drink = 0.6 oz pure alcoho l) Sex Assigned at Date Recorded Female 04/28/2021 11:49 AM CDT COVID-19 Exposure Response Date Recorded In the last month, have you been in contact with No / Unsure 04/06/2021 11:09 AM CARDIOPULMONARY TECHNICIAN someone who was confirmed or suspected to have Coronavirus / COVID-19? documented as of this encounter Last Filed Vital Signs Vital Sign Reading Time Taken Comments Blood Pressure 132/70 04/06/2021 11:30 AM CARDIOPULMONARY TECHNICIAN Pulse 115 04/06/2021 11:30 AM CARDIOPULMONARY TECHNICIAN Temperature 37.1 ??C (98.8 ??F) 04/06/2021 11:30 AM CARDIOPULMONARY TECHNICIAN Respiratory Rate - - Oxygen Saturation 98% 04/06/2021 11:30 AM CARDIOPULMONARY TECHNICIAN Inhaled Oxygen Concentration - - Weight 172 kg (379 lb 4.8 oz) 04/06/2021 11:30 AM CARDIOPULMONARY TECHNICIAN Height - - Body Mass Index 59.41 04/02/2021 3:28 PM CARDIOPULMONARY TECHNICIAN documented in this encounter Patient Instructions Patient InstructionsHumera Rodriguez APRN MANAGER COST - 04/06/2021 11:30 AM CARDIOPULMONARY TECHNICIAN Images from the original note were not included. Plan: - Start Naproxen 500 mg twice daily. - Can continue tylenol up to 3,000 mg daily. - Try some heat - Start mirilax powder, 1 capful each morning. - Start senna - 1 tablet at bedtime. Patient Education When You Have Low Back Pain Caring for Your Back You are not alone. Low back pain is very common. Nearly half of all adults have low back pain in any given year. The good news is that back pain is rarely a danger to your health. Most people can manage their backpain on their own and about half of them start feeling better within 2 weeks. In 9 out of 10 cases, low back pain goes away or no longer limits daily activity within 6 weeks. Your outlook is good! Your symptoms tell us that your low back pain is most likely not a danger to you. Most of the time we do not know the exact cause of low back pain, even if you see a doctor or have an MRI. However, treatment can still work without knowing the cause of the pain. Less than 1 in 100 people need surgery for their back pain. What can I do about my low back pain? There are three things you can do to ease low back pain and help it go away. ?? Use heat or cold packs. ?? Take medicine as directed. ?? Use positions, movements and exercises. Using heat or cold packs Try cold packs or gentle heat to ease your pain. Use whichever gives you the most relief. Apply the cold pack or heat for 15 minutes at a time, as often as needed. Taking medicine ?? If your doctor has prescribed medicine, be sure to follow the directions. ?? If you take gngx-bsa-iblzpxx medicine, read and follow the directions. ?? Talk to your doctor if you have any questions. Using positions, movements and exercises Research tells us that moving your joints and muscles can help you recover from back pain. Such activity should be simple and gentle. Use the positions in the photos as well as walking to help relieve your pain. Try taking a short walk every 3 to 4 hours during the day. Walk for a few minutes inside your home or take longer walks outside, on a treadmill or at a mall. Slowly increase the amount of time you walk. Expect discomfort when you begin, but it should lessen as your back starts to heal. When your back feels better, walk daily to keep your back and body healthy. Finding a comfortable position When your back pain is new, certain positions will ease your pain. Gently try each of the positions below until you find one that is helpful. Once you find a position of comfort, use it as often as youlike when you are resting. You will recover faster if you combine rest with activity. When should I call my doctor? Your back pain should improve over the first couple of weeks. As it improves, you should be able to return to your normal activities. But call your doctor if: ?? You have a sudden change in your ability to control?your bladder or bowels. ?? You feel tingling in your groin or legs. ?? The pain spreads down your leg and into your foot. ?? Your toes, feet or leg muscles feel weak. ?? You feel generally unwell or sick. ?? Your pain does not get better or gets worse. For informational purposes only. Not to replace the advice of your health care provider. Copyright ?? 2013 [employer]. All rights reserved. LoSo [id number] - REV 04/22. Patient Education General Neck and Back Pain Both neck and back pain are usually caused by injury to the muscles or ligaments of the spine. Sometimes the disks that separate each bone of the spine may cause pain by pressing on a nearby nerve. Back and neck pain may appear after a sudden twisting or bending force (such as in a car accident), or sometimes after a simple awkward movement. In either case, muscle spasm is often present and adds to the pain. Acute neck and back pain usually gets better in 1 to 2 weeks. Pain related to disk disease, arthritis in the spinal joints, or narrowing of the spinal canal (spinal stenosis) can become chronic and last for months or years. Back and neck pain are common problems. Most people feel better in 1 or 2 weeks, and most of the rest in 1 to 2 months. Most people can remain active. People have and??describe pain differently. ?? Pain can be sharp, stabbing, shooting, aching, cramping, or burning ?? Movement, standing, bending, lifting, sitting, or walking may worsen the pain ?? Pain can be limited to one spot or area, or it can be more generalized ?? Pain can spread upward, downward, to the front, or go down your arms or legs ?? Muscle spasm may occur. Most of the time mechanical problems with the muscles or spine cause the pain. It's usually caused by an injury, whether known or not, to the muscles or ligaments. Pain without an injury is not common.But it can sometimes be caused by a health problem such as kidney stones or an infection. Pain is usually related to physical activity such as sports, exercise, work, or normal activity. Sometimes it can occur without an identifiable cause. This can happen simply by stretching or moving wrong, withoutnoting pain at the time. Other causes include: ?? Overexertion, lifting, pushing, pulling incorrectly or too aggressively. ?? Sudden twisting, bending or stretching from an accident (car or fall), or accidental movement. ?? Poor posture ?? Poor conditioning, lack of regular exercise ?? Spinal disc disease or arthritis ?? Stress ?? , or illness like appendicitis, bladder or kidney infection, pelvic infections ??Home care ?? For??neck pain:??Use a comfortable pillow that supports the head and keeps the spine in a neutralposition. The position of the head should not be tilted forward or backward. ?? When in bed, try to find a position of comfort. A firm mattress is best. Try lying flat on your back with pillows under your knees. You can also try lying on your side with your knees bent up towards your chest and a pillow between your knees. ?? At first, don't try to stretch out the sore spots. If there is a strain, it's not like the good soreness you get after exercising without an injury. In this case, stretching may make it worse. ?? Don't sit for long periods, as in??long car rides or??other travel. This puts more stress on the lower back than standing or walking. ?? During the first 24 to 72 hours after an injury, apply an ice pack to the painful area for 20 minutes and then remove it for 20 minutes over a period of 60 to 90 minutes or several times a day.? You can alternate ice and heat therapies. Talk with your healthcare provider about the best treatment for your back or neck pain. As a safety precaution, don't use a heating pad at bedtime. Sleepingwith a heating pad can lead to skin begum or tissue damage. ?? Therapeutic massage can help relax the back and neck muscles without stretching them. ?? Be aware of safe lifting methods and don't lift anything over 15 pounds until all the pain is gone. Medicines Talk to your healthcare provider before using medicine, especially if you have other medical problems or are taking other medicines. ?? You may use ymdk-kfc-mfnwpaf medicine to control pain, unless another pain medicine was prescribed. Talk with your doctor first if you have chronic conditions like diabetes, liver or kidney disease,stomach ulcers, gastrointestinal bleeding, or are taking blood thinner medicines. ?? Be careful if you are given pain medicines, narcotics, or medicine for muscle spasm. They can cause drowsiness, and can affect your coordination, reflexes, and judgment. Don't drive or operate heavySalus [employer], [employer]y. Follow-up care Follow up with your healthcare provider, or as advised. You may need physical therapy or further tests. If X-rays were taken, you will be told of any new findings that may affect your care. Call 911 Call 911 if any of the following occur: ?? Trouble breathing ?? Confusion ?? Very drowsy or trouble awakening ?? Fainting or loss of consciousness ?? Rapid or very slow heart rate ?? Loss of bowel or bladder control When to seek medical advice Call your healthcare provider right away if any of these occur: ?? Pain becomes worse or spreads into your arms or legs ?? Weakness, numbness or pain in one or both arms or legs ?? Numbness in the groin area ?? Trouble walking ?? Fever of 100.4??F (38??C) or higher, or as directed by your healthcare provider [employer] last reviewed this educational content on 2018 ?? 0639-4139 [employer]. All rights reserved. This information is not intended as a substitute for professional medical care. Always follow your healthcare professional's instructions. IOPULMONARY TECHNICIAN documented in this encounter Progress Notes Humera Rodriguez APRN CNP - 04/06/2021 11:30 AM CST Assessment & Plan Fall, subsequent encounter Acute midline low back pain without sciatica Persisting pain, no new or red flag symptoms identified. Discussed NSAID dosing, will start naproxenBID with meals. Reviewed max daily dose of tylenol. Advised to stop oxycodone since it is evident this is not helpful and is likely contributing to constipation. Stop muscle relaxants as these are not helpful. Advised to try warm compresses. Discussed expected course of pain over the next 1-2 weeks and when to present to ED. - naproxen (NAPROSYN) 500 MG tablet; Take 1 tablet (500 mg) by mouth 2 times daily (with meals) - polyethylene glycol (MIRALAX) 17 GM/Dose powder; Take 17 g by mouth daily - SENNA-docusate sodium (SENNA S) 8.6-50 MG tablet; Take 1 tablet by mouth At Bedtime Drug-induced constipation Advised to stop oxycodone since it is evident this is not helpful and is likely contributing to constipation. Start mirilax each morning and senna-docusate each evening. Increase water intake to minimum 80 ounces daily. Morbid obesity (H) Body mass index is 59.41 kg/m??. 28 minutes spent on the date of the encounter doing chart review, review of test results, patient visit and documentation MEDICATIONS: - Start taking Naproxen, senna, mirilax - Continue other medications without change Follow-up: Return to clinic if symptoms fail to improve, worsen, or new symptoms develop with the above treatment plan. Humera Rodriguez APRN CNP [facility] Barcenas is a 40 year old who presents for the following health issues: [facility] ED/UC Followup: Facility: [facility] Date of visit: 04/02/21 Reason for visit: fall Current Status: worse Returned home from the ED on 04/02, the following day she was experiencing the worst pain she has ever had sp presented to [facility] ED, was given two IM injections of a medication she does not recall. These helped a little. Also given rx for oxycodone that does not work. She has two tablets remaining. Pain was initially to left side of low back, now more midline low back. Denies saddle anesthesia. Does not radiate down her legs. Baseline urinary incontinence, no changes. Denies loss of bowel. Muscle relaxants not helpful. Denies lower extremity weakness. Worse with standing up straight or sitting. Can't sleep, unable to find comfortable position. Left knee also hurts. Patient is constipated, possibly from the pain medication. Pain History: When did you first notice your pain? - Less than 1 week Have you seen anyone else for your pain? No Where in your body do you have pain? Back Pain Onset/Duration: fell Description: Location of pain: middle of back bilateral, tailbone, and L knee Character of pain: sharp, dull ache, stabbing, burning and constant Pain radiation: none New numbness or weakness in legs, not attributed to pain: no Intensity: Currently 10/10 Progression of Symptoms: worsening History: Specific cause: fall Pain interferes with job: YES History of back problems: no prior back problems Any previous MRI or X-rays: Yes- at [place]. Date 04/02/21 Sees a specialist for back pain: No Alleviating factors: Improved by: nothing Precipitating factors: Worsened by: Lifting, Bending, Standing and Sitting Therapies tried and outcome: acetaminophen (Tylenol), cold and rest Accompanying Signs & Symptoms: Risk of Fracture: Recent history of trauma or blunt force Risk of Cauda Equina: None Risk of Infection: None Risk of Cancer: None Risk of Ankylosing Spondylitis: Onset at age <35, male, AND morning back stiffness no Patient Active Problem List Diagnosis ??? Prediabetes ??? Morbid obesity (H) ??? CAMRYN (obstructive sleep apnea) ??? Mild recurrent major depression (H) ??? Encounter for immunization ? ? Hyperlipidemia LDL goal <160 ??? Midline low back pain without sciatica ??? Pain in both knees ??? Vitamin D deficiency ??? Insomnia due to medical condition Current Outpatient Medications Medication ??? naproxen (NAPROSYN) 500 MG tablet ??? polyethylene glycol (MIRALAX) 17 GM/Dose powder ??? SENNA-docusate sodium (SENNA S) 8.6-50 MG tablet ??? acetaminophen (TYLENOL) 500 MG tablet ??? buPROPion (WELLBUTRIN XL) 150 MG 24 hr tablet ??? cyclobenzaprine (FLEXERIL) 10 MG tablet ??? desvenlafaxine succinate (PRISTIQ) 100 MG 24 hr tablet ??? DULoxetine (CYMBALTA) 20 MG capsule ??? ibuprofen (ADVIL/MOTRIN) 200 MG tablet ??? lidocaine (LIDODERM) 5 % patch ??? mirabegron (MYRBETRIQ) 50 MG 24 hr tablet ??? Vit w/Cm-Jbhnkshsc-HV (PNV PO) ??? topiramate (TOPAMAX) 25 MG tablet ??? traZODone (DESYREL) 100 MG tablet ??? Vitamin D3 (CHOLECALCIFEROL) 25 mcg (1000 units) tablet No current facility-administered medications for this visit. No Known Allergies Review of Systems ROS: 10 point ROS neg other than the symptoms noted above in the HPI. Objective BP 132/70 (BP Location: Right arm, Patient Position: Sitting, Cuff Size: Adult Large) Pulse 115 Temp 98.8 ??F (37.1 ??C) (Tympanic) Wt (!) 172 kg (379 lb 4.8 oz) SpO2 98% BMI 59.41 kg/m?? Body mass index is 59.41 kg/m??. Physical Exam Constitutional: General: She is not in acute distress. Appearance: Normal appearance. She is obese. She is not ill-appearing or toxic-appearing. Musculoskeletal: Lumbar back: No deformity, spasms, tenderness or bony tenderness. Decreased range of motion. Comments: Patient is obviously uncomfortable, leaning forward in the chair to avoid direct pressureon coccyx. Slow to get up from chair to standing position due to pain. Able to walk independently. No obvious weakness. No tenderness on palpation of lumbar spinous processes. Neurological: General: No focal deficit present. Mental Status: She is alert and oriented to person, place, and time. Psychiatric: Mood and Affect: Mood normal. Behavior: Behavior normal. IOPULMONARY TECHNICIAN documented in this encounter Plan of Treatment Not on filedocumented as of this encounter Visit Diagnoses Diagnosis Fall, subsequent encounter - Primary Acute midline low back pain without scia portia Drug-induced constipation Other constipation Morbid obesity (H) Morbid obesity documented in this encounter Additional Health Concerns Assessment Noted Time PHQ-9 Depression Total Score: 21 03/12/2021 11:[address] documented as of this encounter Care Teams Tunnel Worker Relationship Specialty Start Date End Date No Ref-Primary, PCP - General 03/09/21 04/12/21 Physician Trinity Aguilar Personal Advocate & Liaison Family Medicine 2 (PAL) Zacarias Coleman MD Assigned PCP 02/12/21 04/11/21 [address] [place] [address] documented as of this encounter
--- OUTSIDE RECORDS SUMMARY | 2021-11-07 19:47 | XMS_ITS | Encounter Summary ---
:1980 Author Organization [place] Address [address] [place] [address]. [place] [address] Care Team Providers Name Role Phone Lauren Trinity Unavailable Unavailable Rose Morrow CRUISE COORDINATOR Primary Care Provider Humera Rodriguez APRN NUTRITION TEACHER Unavailable Reason for Visit Reason Onset Date Comments No Show 04/23/2021 Encounter Details Date Type Department Care Team Description 04/23/2021 Office Visit [facility] Zacarias Coleman, No-show for [facility] [place] appointment (Primary [id number] [place] [address]) [place] [address] [phone] Social History Tobacco Use Types Packs/Day Years Used Date Never Smoker Smokeless Tobacco: Never Used Alcohol Use Standard Drinks/Week Comments No 0 (1 standard drink = 0.6 oz pure alcoho l) Sex Assigned at Date Recorded Female 04/28/2021 11:49 AM CDT COVID-19 Exposure Response Date Recorded In the last month, have you been in contact with No / Unsure 04/13/2021 1:45 PM TIRE CHANGER AIRCRAFT someone who was confirmed or suspected to have Coronavirus / COVID-19? documented as of this encounter Progress Notes Zacarias Coleman MD - 04/23/2021 10:30 AM CDT This patient was a no show for this scheduled appointment. documented in this encounter Plan of Treatment Not on filedocumented as of this encounter Visit Diagnoses Diagnosis No-show for appointment - Primary documented in this encounter Additional Health Concerns Assessment Noted Time PHQ-9 Depression Total Score: 21 03/12/2021 11:[address] documented as of this encounter Care Teams Horticulture Professor Relationship Specialty Start Date End Date Rose Morrow, CRUISE COORDINATOR PCP - General 04/13/21 [facility] [address] [place] [address] Trinity Aguilar Personal Advocate & Family Medicine 03/13/21 Liaison (PAL) Humera Rodriguez APRN Assigned PCP 04/12/21 [facility] [address] [facility] [place] [address] documented as of this encounter
--- OUTSIDE RECORDS SUMMARY | 2021-11-07 19:47 | XMS_ITS | Encounter Summary ---
:1980 Author Organization [place] Address [address] [place] [address] Care Team Providers Name Role Phone Unavailable Primary Care Provider Unavailable Encounter Details Date Type Department Care Team Description 01/27/2021 Travel Social History Tobacco Use Types Packs/Day Years Used Date Never Smoker Alcohol Use Standard Drinks/Week Comments No 0 (1 standard drink = 0.6 oz pure alcoho l) Sex Assigned at Date Recorded Female 04/28/2021 11:49 AM CDT COVID-19 Exposure Response Date Recorded In the last month, have you been in contact with No / Unsure 01/27/2021 4:09 PM COTTON INSPECTOR someone who was confirmed or suspected to have Coronavirus / COVID-19? documented as of this encounter Plan of Treatment Not on filedocumented as of this encounter Visit Diagnoses Not on filedocumented in this encounter
--- OUTSIDE RECORDS SUMMARY | 2021-11-07 19:47 | XMS_ITS | Encounter Summary ---
:1980 Author Organization [place] Address [address] [place] [address] Care Team Providers Name Role Phone Trinity Aguilar Unavailable Unavailable Rose Morrow PRODUCT MANAGER MEDICAL DEVICE Primary Care Provider Humera Rodriguez APRN STAFF SOFTWARE ENGINEER Unavailable Encounter Details Date Type Department Care Team Description 04/28/2021 Office Visit [facility] Surgical [address], [address] Diet, RD [facility] [place] [address] [facility] [address] [place] [address] Social History Tobacco Use Types Packs/Day Years Used Date Never Smoker Smokeless Tobacco: Never Used Alcohol Use Standard Drinks/Week Comments No 0 (1 standard drink = 0.6 oz pure alcoho l) Sex Assigned at Date Recorded Female 04/28/2021 11:49 AM CDT COVID-19 Exposure Response Date Recorded In the last month, have you been in contact with No / Unsure 04/28/2021 12:00 PM CDT someone who was confirmed or suspected to have Coronavirus / COVID-19? documented as of this encounter Progress Notes Shanice Haywood - 04/28/2021 3:00 PM CDT No visit/no charge documented in this encounter Plan of Treatment Not on filedocumented as of this encounter Visit Diagnoses Not on filedocumented in this encounter Additional Health Concerns Assessment Noted Time PHQ-9 Depression Total Score: 21 03/12/2021 11:[address] documented as of this encounter Care Teams Worm Sorter Relationship Specialty Start Date End Date Rose Morrow, PRODUCT MANAGER MEDICAL DEVICE PCP - General 04/13/21 [facility] [address] [place] [address] Trinity Aguilar Personal Advocate & Family Medicine 03/13/21 Liaison (PAL) Humera Rodriguez APRN Assigned PCP 04/12/21 [facility] [address] [facility] [place] [id number] documented as of this encounter
--- OUTSIDE RECORDS SUMMARY | 2021-11-07 19:47 | XMS_ITS | Encounter Summary ---
:1980 Author Organization [place] Address [address] [place] [address] Care Team Providers Name Role Phone Trinity Aguilar Unavailable Unavailable Rose Morrow CHEESE SPECIALIST Primary Care Provider Humera Rodriguez PROGRAMMER OR ANALYST TUMBLER PLATER Unavailable Encounter Details Date Type Department Care Team Description 04/28/2021 Travel Social History Tobacco Use Types Packs/Day [...] documented as of this encounter Care Teams Pediatrics Physician Relationship Specialty Start Date End Date Rose Morrow, CHEESE SPECIALIST PCP - General 04/13/21 [facility] [address] [place] [address] Trinity Aguilar Personal Advocate & Family Medicine 2/4/22 Liaison (PAL) Humera Rodriguez APRN Assigned PCP 04/12/21 TUMBLER PLATER [address] [facility] [address] [place], [place] [id number] documented as of this encounter
--- OUTSIDE RECORDS SUMMARY | 2021-11-07 19:47 | XMS_ITS | Encounter Summary ---
:1980 Author Organization [facility] Address [address] [place] [address] Care Team Providers Name Role Phone Trinity Aguilar Unavailable Unavailable Rose Morrow MANAGER DIGITAL Primary Care Provider Humera Rodriguez CUSTOMER CARE MANAGER OIL WELL SHOOTER Unavailable Encounter Details Date Type Department Care Team Description 04/13/2021 Travel Social History Tobacco Use Types Packs/Day Years Used Date Never Smoker Smokeless Tobacco: Never Used Alcohol Use Standard Drinks/Week Comments No 0 (1 standard drink = 0.6 oz pure alcoho l) Sex Assigned at Date Recorded Female 04/28/2021 11:49 AM CDT COVID-19 Exposure Response Date Recorded In the last month, have you been in contact with No / Unsure 04/13/2021 1:45 PM AIRCRAFT PILOT someone who was confirmed or suspected to have Coronavirus / COVID-19? documented as of this encounter Plan of Treatment Not on filedocumented as of this encounter Visit Diagnoses Not on filedocumented in this encounter Additional Health Concerns Assessment Noted Time PHQ-9 Depression Total Score: 21 03/12/2021 11:[address] documented as of this encounter Care Teams Network Systems Consultant Relationship Specialty Start Date End Date Rose Morrow, MANAGER DIGITAL PCP - General 04/13/21 THANIA RUIZ [address] [place] [address] Trinity Aguilar Personal Advocate & Family Medicine 03/13/21 Liaison (PAL) Humera Rodriguez APRN Assigned PCP 04/12/21 OIL WELL SHOOTER [address] [place], [place] [id number] documented as of this encounter
--- OUTSIDE RECORDS SUMMARY | 2021-11-07 19:52 | XMS_ITS | Encounter Summary ---
:1980 Author Organization [facility] Address [address] [place] [address] Care Team Providers Name Role Phone Unavailable Primary Care Provider Unavailable Reason for Visit Reason Comments Procedure Encounter Details Date Type Department Care Team Description 07/04/[address] [facility] - Procedure Urology [address] [facility] [place] [address] Social History Tobacco Use Types Packs/Day Years [...] documented as of this encounter Progress Notes Myranda Baird PA-C - 07/04/2019 1:00 PM CDT PREPROCEDURE DIAGNOSES: 1. Mixed stress and urge urinary incontinence. 2. Nocturnal enuresis. 3. Urinary urgency. 4. Urinary frequency. 5. Morbid obesity. 6. Obstructive sleep apnea (CAMRYN). POSTPROCEDURE DIAGNOSES: 1. Normal bladder capacity; 400 mL. 2. Excellent bladder compliance; baseline filling Pdet was essentially zero. 3. No clear detrusor instability observed during today's study. 4. No stress leak at Pabd 115 cm H2O at a volume of 351 mL. 5. 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 PROCEDURE: 1. Uroflowmetry. 2. Sterile urethral catheterization for measurement of postvoid residual urine volume. 3. Complex filling cystometrogram with measurement of bladder and rectal pressures. 4. Complex voiding cystometrogram with measurement of bladder and rectal pressures. 5. Electromyography of the pelvic floor during urodynamics. 6. Interpretation of urodynamics. INDICATIONS FOR PROCEDURE: Ms. Narinder Lucas is a pleasant 38 y.o. female with c/o mixed stress and urge urinary incontinence and nocturnal enuresis. Failed oxybutynin and trospium. Failed PFPT. Myrbetriq has been helpful but further improvement is desired. Urodynamic assessment is planned to better characterize the patient's voiding dysfunction prior to further management planning. DESCRIPTION OF PROCEDURE: Risks, benefits, and alternatives to urodynamics were discussed with the patient and she wished to proceed. Urodynamics are planned to better assess the primary etiology for Ms. Lucas's urologic dysfunction. The patient last took Myrbetriq over a week ago. After verbal consent was obtained, the patient was taken to the procedure room where uroflowmetry was attempted. UROFLOWMETRY: The patient was only able to void a few mL for pre-test uroflowmetry and the uroflowmeter did not trigger. Bladder volume as measured via catheter was 10 mL. Urinalysis showed small bili and was otherwise unremarkable. Next a 7F double-lumen urodynamics catheter was inserted into the bladder. A 7F abdominal manometry catheter was placed in the vagina. EMG pads were placed on either side of the anal verge. The bladderwas filled with NS at 50 mL/minute and serial pressures were recorded. With coughing there was an appropriate rise in vesical and abdominal pressures with no change in detrusor pressure, confirming good study catheter placement. DURING THE FILLING PHASE: This was a bit of a challenging study. Our initial vesical catheter appeared to have an air leak andwas thus replaced. Then we encountered difficulty with the installation pump; the computer indicatedthere was nearly 400 mL in the bladder but the bag was still full. Tubing was adjusted and was then found to be working appropriately. The study tracing notes when Pves was replaced and when the tubingwas adjusted. All numbers below have been reduced by ~400 mL given the installation pump issue. First Sensation: 26 mL reported as coolness. First Desire: 351 mL. Strong Desire: 370 mL. Maximum Capacity: 400 mL. Uninhibited detrusor contractions: No clear spasms demonstrated on today's study. Compliance: Excellent, baseline filling Pdet was essentially zero. Continence: No stress leak at Pabd 115 cm H2O at a volume of 351 mL. EMG: Grossly concordant. DURING THE VOIDING PHASE: Detrusor Contraction: 30 cm H2O during voiding. Voided volume: 323 mL. Maximum flow rate: 35.6 mL/sec. Average flow rate: 14.9 mL/sec. Postvoid Residual: 75 mL. Detrusor sphincter dyssynergia: No. ICS nomogram: Unobstructed, borderline equivocal. ASSESSMENT/PLAN: Ms. Narinder Lucas is a pleasant 38 y.o. female with c/o mixed stress and urge incontinence and nocturnal enuresis who demonstrated the following findings today on urodynamic evaluation: 1. Normal bladder capacity; 400 mL. 2. Excellent bladder compliance; baseline filling Pdet was essentially zero. 3. No clear detrusor instability observed during today's study. 4. No stress leak at Pabd 115 cm H2O at a volume of 351 mL. 5. 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 - A single nitrofurantoin 100 mg capsule was provided for UTI prophylaxis. - Additional Myrbetriq 25 mg samples provided today (we are out of the 50 mg). - Patient is interested in bladder Botox therapy and her history sounds like this may very well be an excellent therapy for her. Note that the patient is interested in bariatric surgery so if interested in InterStim she'd likely need to wait until she is finished with her weight loss to avoid needing to reposition the IPG. - F/U with Dr. Patel in the near future as planned to discuss bladder Botox. Handout provided. Sincerely, Pamela Baird PA-C Department of Urologic Surgery documented in this encounter Plan of Treatment Not on filedocumented as of this encounter Procedures Procedure Name Priority Date/Time Associated Diagnosis Comme nts URO COMPLEX Routine 07/04/2019 2:53 Urinary urgency CYSTOMETROGRAM VOIDING PM CDT Urinary f requency PRESSURE STUDY Urge incontinenc e Stress incontinence in female Nocturnal enures is OAB (overactive bladder) Morbid obesity ( HRC) Mixed stress and urge urinary incontinence URO VOIDING PRESS Routine 07/04/2019 2:53 Urinary urgenc y STUDY INTRA-ABDOMINAL PM CDT Urinary fr equency Urge incontinenc e Stress incontinence in female Nocturnal enures is OAB (overactive bladder) Morbid obesity ( HRC) Mixed stress and urge urinary incontinence URO UROFLOW CLINIC Routine 07/04/2019 2:53 Urinary urgen cy PM CDT Urinary frequenc y Urge incontinenc e Stress incontinence in female Nocturnal enures is OAB (overactive bladder) Morbid obesity ( HRC) Mixed stress and urge urinary incontinence URO PATCH EMG Routine 07/04/2019 2:53 Urinary urgency PM CDT Urinary frequenc y Urge incontinenc e Stress incontinence in female Nocturnal enures is OAB (overactive bladder) Morbid obesity ( HRC) Mixed stress and urge urinary incontinence URO COMPLEX Routine 07/04/2019 2:53 Urinary urgency CYSTOMETROGRAM PM CDT Urinary frequenc y Urge incontinenc e Stress incontinence in female Nocturnal enures is OAB (overactive bladder) Morbid obesity ( HRC) Mixed stress and urge urinary incontinence AUTOMATED URINALYSIS Routine 07/04/2019 1:45 Resu lts for this DIPSTICK POCT PM CDT procedure are in the results section. documented in this encounter Results (ABNORMAL) Urinalysis Dipstick (07/04/2019 1:45 PM CDT) [facility] Method Time Signature Glucose Urine Negative Negative 07/04/2019 [facility] Qual (mg/dL) 1:51 PM CDT [address] [facility] Bilirubin Small (A) Negative 07/04/2019 [facility] Urine 1:51 PM CDT [facility] [facility] Ketones, Negative Negative 07/04/2019 [facility] Urine (mg/dL) 1:51 PM CDT [facility] Specific >=1.030 (A) 1.005 - 07/04/2019 [facility] [place], 1.030 1:51 PM CDT [facility] Blood, Urine Negative Neg/Trace 07/04/2019 [facility] 1:51 PM CDT [address] [facility] PH Urine 5.5 5.0 - 8.0 07/04/2019 [facility] 1:51 PM CDT [facility] Protein, Negative Neg/Trace 07/04/2019 [facility] Urine Qual 1:51 PM CDT 3850 (mg/dL) LABORATORY Urobilinogen, 0.2 <2.0 07/04/2019 [facility] Urine (EU/dL) 1:51 PM CDT [address] [facility] Nitrite Urine Negative Negative 07/04/2019 [facility] 1:51 PM CDT [address] [facility] Leukocyte Negative Negative 07/04/2019 [facility] Est. 1:51 PM CDT [address] [facility] Urine Color Yellow Straw-Yellow 07/04/2019 [facility] 1:51 PM CDT [address] [facility] Urine Clarity Clear Clear 07/04/2019 [facility] 1:51 PM CDT [address] [facility] Specimen Anatomical Collection Method Collection Time Receive d Time (Source) Location / / Volume Laterality Urine 07/04/2019 1:45 PM 0 1:51 CDT PM CDT Interface Provider LAB_1 Performing Organization Address City/State/ZIP Code Phon e Number [facility] [address] [place], [place] [address] [address] documented in this encounter Visit Diagnoses Diagnosis Mixed stress and urge urinary incontinen ce - Primary Mixed incontinence urge and stress (male )(female) Urinary urgency Urgency of urination Urinary frequency Urge incontinence Stress incontinence in female Nocturnal enuresis OAB (overactive bladder) Hypertonicity of bladder Morbid obesity (HRC) Morbid obesity documented in this encounter
== END 2021-11-07 19:48 | disposition home or self-care (01) ==
PROVIDERS: Emergency Provider Emergency Medicine
DX: J06.9 Acute upper respiratory infection, unspecified (principal)
CPT/HCPCS: 99282; 99283

== ENCOUNTER 2024-07-18 17:54 | Emergency (ER) | payer MEDICAID, SELFPAY ==
--- OUTSIDE RECORDS SUMMARY | 2024-07-18 17:57 | XMS_ITS | Encounter Summary ---
Author Organization [facility] Address [address] [place] [address] Care Team Providers Care Collar Feller Name Role Phone No Ref-Primary, Physician Primary Care Provider Trinity Aguilar Unavailable Unavailable Rose Morrow HOOK LOADER Primary Care Provider [phone] Zaid Weston-C Unavailable [phone] Humera Rodriguez APRN REAL ESTATE APPRAISER Unavailable [phone] Encounter Details Date Type Department Care Team (Late st Contact Info) Description 04/12/2021 MyC Medical Advice [facility] [address] [place] [phone] [place] [address] [place], [place] [id number] Social History Tobacco Use Types Packs/Day Years Used Date Smoking Tobacco: Never Smokeless Tobacco: Never Alcohol Use Standard Drinks/Week Comments No 0 (1 standard drink = 0.6 oz pur e alcohol) PHQ-2 Answer Date Recorded PHQ-2 Score 6 03/12/2021 Comments No Sex and Gender Information Value Date Recorded Sex Assigned at Female 04/28/2021 11:49 AM CDT Legal Sex Female 8:05 PM POLICY WRITER Gender Identity Female 04/28/2021 11:49 AM CDT Sexual Orientation Not on file COVID-19 Exposure Response Date Recorded In the last month, have you been in contact with someone who was confirmed or suspected to have Coronavirus / COVID-19? No / Unsure 04/13/2021 1:45 PM POLICY WRITER documented as of this encounter Plan of Treatment Not on file documented as of this encounter Visit Diagnoses Not on filedocumented in this encounter Additional Health Concerns Assessment Noted Time PHQ-9 Depression Total Score: 21 022 11:26 AM POLICY WRITER documented as of this encounter Care Teams Collar Feller Relationship Specialty Start Date End Date No Ref-Primary, Physician PCP - General 03/09/21 04/12/21 Rose Morrow, HOOK LOADER [address] [place] [address] PCP - General 04/13/21 Trinity Aguilar Personal Advocate & Liaison (PAL) Family Medicine 03/13/21 Zaid Weston PA-C [address] [address] Assigned Surgical Provider 05/03/21 Humera Rodriguez APRN REAL ESTATE APPRAISER [address] [facility] [place] [address] Assigned PCP 04/12/21 04/28/24 documented as of this encounter
--- OUTSIDE RECORDS SUMMARY | 2024-07-18 17:57 | XMS_ITS | Clinical Summary ---
Author Organization [facility] Address [address] [place] [address] Care Team Providers Care Mortgage Loan Originator Name Role Phone Rose Morrow APRN, CNP Primary Care Provid er Source Comments You are receiving this document as you are listed as the primary care provider,follow-up provider, or the patient has been referred to you for consultation.This is in compliance with the Medicare and[facility] EHR Incentive Program,which states Providers who transition their patient to another setting of careor provider of care or refers their patient to another provider of care shouldprovide summary care record for each transition of care or referral. [facility] Allergies No known active allergies Medications * This document contains information received from the source organization and may not represent a complete record from that organization. Ibuprofen 200 MG capsule Take 600 mg by mouth every 6 hours as needed for Pain. Active tiZANidine (ZANAFLEX) 2 MG tablet Take 0.5-1 Tablets by mouth two times daily as needed (Muscle pain and tension). 30 Tablet 1 05/14/19 21 Active ondansetron (ZOFRAN-ODT) 4 MG disintegrating tablet Take 1 Tablet by mouth as needed for Nausea. 20 Tablet 06/07/19 21 Active buPROPion (WELLBUTRIN XL) 150 MG 24 hour release tablet Take 3 Tablets by mouth daily. 270 Tablet 1 08/20/19 21 Active triamcinolone acetonide (KENALOG) 0.1 % creamIndications:A topic Dermatitis Apply topically two times a day. Indications: Atopic Dermatitis 15 g 1 09/23/20 21 Active Vitamin D, Ergocalciferol, 1.25 MG (63977 UT) CAPS TAKE 1 CAPSULE BY MOUTH 1 TIME A WEEK 12 Capsule 3 11/19/19 Active topiramate (TOPAMAX) 25 MG tabletIndications: Morbid obesity with BMI of 50.0-59.9, adult (HRC) Take 1 Tablet by mouth two times a day for 30 days. 60 Tablet 2 11/20/19 Active traZODone (DESYREL) 100 MG tablet Take 0.5-2 Tablets by mouth daily at bedtime. 60 Tablet 2 01/15/20 Active desvenlafaxine (PRISTIQ) 25 MG 24 hour release tablet 25 mg daily x 7 days then 50 daily with food- discontinue Cymbalta 60 Tablet 3 01/15/20 21 Active Active Problems Problem Noted Date Diagnosed Date OCD (obsessive compulsive disorder) 01/14/2021 Mixed hyperlipidemia 11/19/2020 Hyperinsulinemia 11/19/2020 Prediabetes 11/19/2020 Chronic low back pain 05/09/2020 Urinary frequency 09/13/2019 Overview (09/13/2019): Added automatically from request for surgery [id number] Urinary urgency 09/13/2019 Overview (09/13/2019): Added automatically from request for surgery [id number] Mixed stress and urge urinary incontinence 09/12 Overview (09/13/2019): Added automatically from request for surgery [id number] Morbid obesity with BMI of 50.0-59.9, adult 06/2019 Binge eating disorder 07/28/2017 MIKEY (generalized anxiety disorder) 07/08/2016 CAMRYN (obstructive sleep apnea) 01/13/2016 Assessment & Plan (12/04/2020 2:48 PM CDT): PSG 2016 [facility] AHI 6 RDI 7 Major depression, recurrent 02/19/2010 Vitamin D deficiency Overactive bladder Resolved Problems Problem Noted Date Diagnosed Date Resolved Date Depression (emotion) 020 Immunizations Immunization Administration Dates Next Due Flu Vac (3+ yrs) 11/03/2011,12/15/2006 Flu Vac Preserv Free (3+yrs) 03/01/2012 HepB Adult (Engerix-B, 20+ y rs, 3 dose series) 01/12/2005,08/14/2004,07/10/2004 IPV (Polio) 10/03/2012 Influenza IIV4 (Quadrivalent ) 0.5mL (60546) 10/27/2019,03/21/2019,03/14/2019(Deferr ed: Patient Refused),12/26/2017,11/28/2013 Influenza, Unspecified Formulation 05/02/2013 MMR 08/14/2004,07/10/2004 Moderna Monovalent 12+ 06/12/2020,05/14/2020 TB Skin Test - Inpt (PPD) 08/18/2004 Td 02/16/2005,08/14/2004,07/10/2004 Tdap 06/30/2013,11/03/2011 Typhoid (Typhim Vi, IM) 10/03/2012 Varicella 08/14/2004,07/10/2004 YF (Yellow Fever) 10/03/2012 Family History Medical [...] drink = 0.6 oz pur e alcohol) AUDIT-C Answer Date Recorded Q1: How often do you have a drink containing alc ohol? 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 Not on file Not on file Not on file Last Filed Vital Signs Vital Sign Reading Time Taken Comments Blood Pressure 119/90 08/19/2020 1:00 PM CDT Pulse 115 08/19/2020 1:00 PM CDT Temperature 36.7 C (98 F) 01/08/2020 9:46 AM CLIENT CARE MANAGER Respiratory Rate 20 10/29/2019 5:51 PM CDT Oxygen Saturation 98% 10/29/2019 5:51 PM CDT Inhaled Oxygen Concentration - - Weight 167.4 kg (369 lb) 11/19/2020 11:08 AM CDT pt reported Height 170.2 cm (5' 7) 11/19/2020 11:08 AM CDT pt reported Body Mass Index 57.79 11/19/2020 11:08 AM CDT Plan of Treatment Health Maintenance Due Date Last Done Comments Hep C Screening (Preventive Services) 1980 Tuberculosis Screening 1980 Mammogram 1980 Adult Preventive Visit 03/14/2021 03/14/2019, 2018 Cervical Cancer Screening 05/22/2021 05/22/2018, Prediabetes: HGBA1C 08/19/2021 08/19/2020, 03/14/2019, 05/22/2018 DTaP/Tdap/Td Vaccine (3 - Tdap) 07/01/2023 06/30/2013, 11/03/2011, 02/16/2005, Additional history exists COVID-19 Vaccine ( season) 2023 06/12/2020, 05/14/2020 Influenza Vaccine (Season Ended) 2024 10/27/2019, 03/21/2019, 12/26/2017, Additional history exists Zoster/Shingles Vaccine (1 of 2) 2032 HepB Vaccine Completed 01/12/2005, 070 09/2004, 07/10/2004 IPV (Polio) Vaccine Aged Out 10/03/2012 No longe r eligible based on patient's age to complete this topic HIV Screening (Preventive Services) Completed 03/14/2019 HPV Vaccine Aged Out No longer eligi ble based on patient's age to complete this topic HepA Vaccine Aged Out No longer eligi ble based on patient's age to complete this topic Hib Vaccine Aged Out No longer eligi ble based on patient's age to complete this topic MCV4 Vaccine Aged Out No longer eligi ble based on patient's age to complete this topic Meningococcal B Vaccine Aged Out No l onger eligible based on patient's age to complete this topic Pneumococcal Vaccine Aged Out No long er eligible based on patient's age to complete this topic Procedures Procedure Name Priority Date/Time Associated Diagnosis Comments HGB A1C Routine 08/19/2020 2:15 PM CDT Morbid obesity with BMI of 50.0-59.9, adult (HRC) HIV 1/2 AG/AB 4TH GEN Routine 03/14/2019 2:55 PM CLIENT CARE MANAGER Screening for HIV (human immunodeficiency virus) HPV WITH 16 18 GENOTYPING, CERVICAL/ENDOCERV ICAL Routine 05/22/2018 11:02 AM CDT Cervical cancer screening from Last 3 Months or Most Recently Relevant to Health Maintenance Results * (ABNORMAL) Hgb A1c (08/19/2020 2:15 PM CDT) Hemoglobin A1C (Rapid) 5.7(H) <=5.6 % 08/19/2020 3:45 PM CDT [facility] Blood Venipuncture / Unknown 08/19/2020 2:15 PM CDT 08/19/2020 2:21 PM CDT Narrative [facility] - 08/19/2020 3:45 PM CDT For patients not previously diagnosed with diabetes: 5.7-6.4%: Increased risk for diabetes 6.5% and greater: Diagnostic for diabetes For patients diagnosed with diabetes: <8.0%: Goal of therapy for ages 18-75 Clinicians may recommend a higher or lower goal for specific individuals. This Hemoglobin A1c assay has significant interference with elevated Hemoglobin (HbF) and other Hemoglobin variants. In patients with results that do not correlate clinically, contact the laboratory for further direction. us Carrie Gabriel [facility] LAB_1 Final Resu lt [facility] [address] [place] [address], [facility] [phone] * HIV 1/2 Ag/Ab 4th Generation (03/14/2019 2:55 PM CLIENT CARE MANAGER) HIV 1/2 Antigen/Antib jessica (4th generation) Negative (Non Reactive) Negative (Non Reactive) 03/14/2019 7:14 PM CLIENT CARE MANAGER [facility] Comment:HIV-1 p24 Antigen an d HIV-1/HIV-2 Antibody not detected Blood Venipuncture / Unknown 03/14/2019 2:55 PM CLIENT CARE MANAGER 03/14/2019 2:55 PM CLIENT CARE MANAGER Charley Garcia MD LAB_1 Final Res ult [facility] [address] * HPV with 16 18 Genotyping (05/22/2018 11:02 AM CDT) HPV High Risk Type 16 PCR Not Detected Not detected 05/29/2018 2:16 PM CDT [facility] Comment:F;NONE HPV High Risk Type 18 PCR Not Detected Not Detected 05/29/2018 2:16 PM CDT [facility] Comment:F;NONE HPV High Risk Other Than 16/18 Not Detected Not detected 05/29/2018 2:16 PM CDT [facility] Comment:F;NONE Cervical Broom ENTIRE ENDOCERVIX / Unknown Non-blood Collection / Unknown 05/22/2018 11:02 AM CDT 05/22/2018 11:02 AM CDT Narrative [facility] - 05/29/2018 2:16 PM CDT The Wanda HPV test is a qualitative in vitro test for the detection of Human Papillomavirus in [facility] patient specimens. The test utilizes amplification of target DNA by Polymerase Chain Reaction (PCR) and nucleic acid hybridization for the detection of 14 high-risk (HR) HPV types. The assay tests for high risk types (16, 18, 31, 33, 35, 39, 45, 51, 52, 56, 58, 59, 66, and 68). NOTE: This test was developed and its performance characteristics determined by [facility]. It has not been cleared or approved by the FDA. The laboratory is required under CLIA as qualified to perform high-complexity testing. This test is used for clinical purposes. It should not be regarded as investigational or for research. The Wanda HPV test is a qualitative in vitro test for the detection of Human Papillomavirus in [facility] patient specimens. The test utilizes amplification of target DNA by Polymerase Chain Reaction (PCR) and nucleic acid hybridization for the detection of 14 high-risk (HR) HPV types. The assay tests for high risk types (16, 18, 31, 33, 35, 39, 45, 51, 52, 56, 58, 59, 66, and 68). Thais Soto PA-C LAB_1 Final Resu lt [facility] [address] [place] [address], [facility] from Last 3 Months or Most Recently Relevant to Health Maintenance Insurance [id number] [id number] [facility] Member Subscriber Plan / Payer (Ef fective 2024-Present) Name:Narinder Lucas Relation to Subscriber:Self Name:Narinder Lucas Payer ID:Not on file Type:Medicaid Address: [id number] [place] [id number] Care Teams Mortgage Loan Originator Relationship Specialty Start Date End Date Rose Morrow, UMBRELLA TIPPER MACHINE, SEWING MACHINE REPAIRER [id number] [place] [address] PCP - General Nurse Practitioner 10/30/20
--- OUTSIDE RECORDS SUMMARY | 2024-07-18 17:57 | XMS_ITS | Encounter Summary ---
Author Organization [facility] Address [address] [place] [id number] Care Team Providers Care Track Fitter Name Role Phone Jai Aguilaryn Unavailable Unavailable Rose Morrow [employer] MELTING SUPERVISOR Primary Care Provider [phone] Zaid WestonC Unavailable [phone] Humera Rodriguez APRN HAND DEICER ELEMENT WINDER Unavailable [phone] Encounter Details Date Type Department Care Team (Late st Contact Info) Description 04/24/2021 MyC Medical Advice [facility] [id number] [place] [id number] Juliana Gonzalez MA Social History Tobacco Use Types Packs/Day Years Used Date Smoking Tobacco: Never Smokeless Tobacco: Never Alcohol Use Standard Drinks/Week Comments No 0 (1 standard drink = 0.6 oz pur e alcohol) PHQ-2 Answer Date Recorded PHQ-2 Score 6 03/12/2021 Comments No Sex and Gender Information Value Date Recorded Sex Assigned at Female 04/28/2021 11:49 AM CDT Legal Sex Female 8:05 PM INSTRUMENT WORKER Gender Identity Female 04/28/2021 11:49 AM CDT Sexual Orientation Not on file COVID-19 Exposure Response Date Recorded In the last month, have you been in contact with someone who was confirmed or suspected to have Coronavirus / COVID-19? No / Unsure 04/13/2021 1:45 PM INSTRUMENT WORKER documented as of this encounter Plan of Treatment Not on file documented as of this encounter Visit Diagnoses Not on filedocumented in this encounter Additional Health Concerns Assessment Noted Time PHQ-9 Depression Total Score: 21 022 11:26 AM INSTRUMENT WORKER documented as of this encounter Care Teams Track Fitter Relationship Specialty Start Date End Date Rose Morrow, RUDOLPH [address] [facility] [address] [place] [address] PCP - General 04/13/21 Trinity Aguilar Personal Advocate & Liaison (PAL) Family Medicine 03/13/21 Zaid Weston PA-C [address] [id number] Assigned Surgical Provider 05/03/21 Humera Rodriguez APRN HAND DEICER ELEMENT WINDER [address] [facility] [place] [address] Assigned PCP 04/12/21 04/28/24 documented as of this encounter
--- OUTSIDE RECORDS SUMMARY | 2024-07-18 17:57 | XMS_ITS | Clinical Summary ---
Author Organization [employer] [facility] Address [address] [place] [id number] Care Team Providers Care Helmet Hat Sweatband Puncher Name Role Phone [facility] [place] Unavailable [facility] [place] Unavailable Clara Neil DO Primary Care Provide r Allergies No known active allergies Medications durable medical equipment (DME)Indications:N oncompliance Med-Q Automatic Pill Dispenser that beeps to alert pt to take med 1 Each 10/05/19 23 Active acetaminophen (TYLENOL EXTRA STRGTH) 500 mg tabletIndications: Chronic pain of both knees Take 2 Tablets (1,000 mg) by mouth every 6 hours if needed for Pain. Max acetaminophen dose: 4000mg in 24 hrs. 90 Tablet 1 10/23/19 23 Active Diaper,Brief, Adult,DisposableIn dications:Other urinary incontinence For home use. Please give size XXXXL 120 Each 3 09/01/19 24 Active polyethylene glycoL (MIRALAX) 17 gram/scoop powderIndications: Constipation, acute Mix 1 scoop (17 g) in liquid then take by mouth 2 times daily if needed for Constipation. 510 g 09/06/19 24 Active durable medical equipment (DME)Indications:B ilateral primary osteoarthritis of knee,Morbid obesity with BMI of 50.0-59.9, adult (HC) DME order for cane at [facility]. Please call patient. 11/09/19 24 Active hydrocortisone 2.5 % creamIndications:S eborrheic dermatitis,Eczema, unspecified type Apply topically to affected area(s) two times daily. 453.6 g 1 02/20/19 25 Active ketoconazole 2 % creamIndications:S eborrheic dermatitis Apply topically to affected area(s) once daily. 60 g 5 02/20/19 25 Active zolpidem (AMBIEN) 5 mg tablet Take 5 mg by mouth at bedtime if needed. 02/12/19 25 Active Diaper,Brief, Adult,DisposableIn dications:Other urinary incontinence For home use. XXXXL needed 05/05/19 25 Active cholecalciferol (Vitamin D-3) 2,000 unit capsuleIndications :Vitamin D deficiency Take 1 Capsule (2,000 units) by mouth once daily. 90 Capsule 3 05/17/19 25 Active pantoprazole 40 mg delayed-release tabletIndications: Gastric reflux Take 1 Tablet (40 mg) by mouth once daily. 90 Tablet 3 05/17/19 25 Active Active Problems Problem Noted Date Diagnosed Date NAFLD (nonalcoholic fatty liver disease) 025 Overview (05/22/2024): 05/2024: ALT elevated. US consistent with fatty liver Obsessive-compulsive disorder 01/11/2024 Major depressive disorder, r ecurrent severe without psychotic features 11/30/2023 Pap smear for cervical cancer screening 11/02/19 23 Overview (11/01/2022): 10/2022 NIL/ HPV negative Plan: Pap/ HPV due 10/2027 Keratitis sicca 09/01/2022 Morbid obesity with BMI of 50.0-59.9, adult 07/09 Abnormal uterine bleeding 11/13/2021 Overview (10/04/2022): We spent time discussing my concerns surrounding her abnormal bleeding common going 6 months without getting a period. She would like to discuss this in greater detail. I recommend endometrial biopsy and pelvic ultrasound, and consideration of hormonal IUD insertion for prevention of hyperplasia and uterine cancer. She indicates that she may want in the future, but wants to be healthy both physically and emotionally before she would try to become . She will return in the future so we can discuss these things in greater detail. Pain in both knees 03/12/2021 Overview (10/04/2022): Must sit on a stool to do dishes. Cannot stand long enough to wash hands Prediabetes 11/19/2020 Mixed hyperlipidemia 11/19/2020 Hyperinsulinemia 11/19/2020 Overactive bladder 08/19/2020 Mixed stress and urge urinary incontinence 09/12 MIKEY (generalized anxiety disorder) 07/08/2016 CAMRYN 09/08/2015 AHI-5, REM it is 15 or more 016 Vitamin D deficiency 12/28/2013 Chronic low back pain 01/04/2011 Edema 01/04/2011 Resolved Problems Problem Noted Date Diagnosed Date Resolved Date Major depressive disorder, r ecurrent episode, moderate 08/03/2022 01/11/2024 COVID 11/04/2021 10/04/2022 Insomnia due to medical condition 03/12/2021 08/30/2023 Overview (10/04/2022): . Trazodone therapy OCD (obsessive compulsive disorder) 01/14/2021 08/30/2023 Binge eating disorder 07/28/20172022 CAMRYN (obstructive sleep apnea) 07/28/2017 01/11/2024 Right lower quadrant abdominal pain 09/11/2016 10/04/2022 MDD (major depressive disord er), recurrent episode, moderate 08/19/2016 09/11/2016 Depression, major, single episode, mild 07/08/2016 09/11/2016 Persistent depressive disorder 04/30/2016 09/30/2022 Indication for care in labor or delivery 04/09/2013 10/04/2022 Normal , first 12/13/2012 0806/2016 Anemia, unspecified 11/03/2011 09/12/19 17 Vitamin D deficiency 11/03/2011 017 Obesity, unspecified 01/04/2011 024 Major depression, recurrent 02/19/2010 08/03/2022 Nocturnal enuresis 02/14/2006 7 Encounters Date Type Department Care Team Description 07/06/[address] [facility] [address] [place] [address] Clara Neil, Leg Swelling 07/04/2024 1:45 PM CDT - 07/04/2024 11:59 PM CDT Hospital Encounter [facility] [address], [place] [address] Luis Escalante, Livier Kaufman, PT 07/04/2024 Travel 06/27/[address] [facility] [address] [place] [address] Unknown, Doctor Patient Complaint 06/18/2024 10:15 AM CDT - 06/18/2024 11:59 PM CDT Hospital Encounter [facility] [address] [place] [address] Luis Escalante, Livier Kaufman, PT Bilateral primary osteoarthritis of knee; Morbid obesity with BMI of 50.0-59.9, adult (HC) 06/18/2024 Travel 05/18/[address] [place] [address] Staff, Renay Bariatric Weight 05/17/2024 7:30 AM CDT - 05/17/2024 11:59 PM CDT Hospital Encounter [facility] [address] [facility] [place] [address] Clara Neil, Biliary colic symptom; Abdominal pain, RUQ (right upper quadrant); Elevated LFTs 05/16/2024 1:00 PM CDT Office Visit [facility] [address] [facility] [place] [address] Clara Neil, Abdominal Pain (Abdominal pain, dizzy, shaky); Bowel Problem (Yesterday her BM was sumit colored and oily); Fatigue (No sleeping well) 05/16/2024 Travel 05/07/[address] [facility] [address] [place] [address] Clara Neil, DME Supply (Diapers, brief adult disposable) 05/03/[address] [facility] [address] [place] [address] Clara Neil, DME Supply (adult diapers) 05/03/[address] [facility] [address] [place] [address] Clara Neil DO Outside Order (physical therapy ) 05/01/2024 1:49 PM CDT - 05/01/2024 6:53 PM CDT Emergency [facility] [address] [place] [address] Dot Cabral PA Chest pain, unspecified type (Primary Dx); Pelvic pain Discharge Disposition: Home Self Care 05/01/2024 1:10 PM CDT Office Visit [facility] [address] [place] [address] Louisa Jacobo NP Chest Pain (left sided chest pain, feels like a stabbing pain in the breast and mid chest, has been constant for 3 days) 05/01/2024 Travel 04/18/2024 1:46 PM CDT - 04/18/2024 6:24 PM CDT Emergency [facility] [address] [place] [address] Bon Varghese MD Mayeux, Gary Paul, MD Chest pain, unspecified type (Primary Dx); Paresthesia; Gastroesophageal reflux disease with esophagitis, unspecified whether hemorrhage Discharge Disposition: Home Self Care 04/18/2024 Travel 04/18/[address] [facility] [address] [place] [address] Clara Neil DO Palpitations from Last 3 Months Immunizations Immunization Administration Dates Next Due Hepatitis A (Adult) 11/11/2022 Hepatitis B (Adult) 01/12/2005,08/14/2004,2004 INFLUENZA, IIV3 PF (AGE >= 6 MO) 11/30/2023,02/08 Inactivated Polio Vaccine 10/03/2012 Influenza Virus, Unspecified 03/01/2012 Influenza, IIV3 (Age >=3 years) 03/12/19,10/27/2019,03/21/2019,12/26/2017 ,11/03/2011,12/15/2006 Influenza, IIV4 11/11/2022,12/31/2021,11/28/2013 MMR 08/14/2004,07/10/2004 Td (Age >=7 Years) 02/16/2005,08/14/2004, 005 Tdap 07/05/2013,11/03/2011 Tuberculin (PPD) 08/18/2004 Typhoid (injectable) 11/11/2022,10/03/2012 Varicella Vaccine 08/14/2004,07/10/2004 Yellow Fever 10/03/2012 Family History Medical History Relation Name Comments Other Mother TB Unknown Paternal Grandfather Other Sister 2 Mental retardat ion Relation Name Status Comments Brother 1 Alive Brother 2 Alive Brother 3 Alive Brother 4 Alive Father Alive Maternal Grandfather Maternal Grandmother Mother Alive Paternal Grandfather Paternal Grandmother Alive Sister 1 Alive Sister 2 Social History Tobacco Use Types Packs/Day Years Used Date Smoking Tobacco: Never Smokeless Tobacco: Never Tobacco Cessation:Counseling Given: Yes Alcohol Use Standard Drinks/Week Comments No 0 (1 standard drink = 0.6 oz pur e alcohol) PHQ-2 Answer Date Recorded PHQ-2 TOTAL SCORE 1 08/31/2023 Social Connections Answer Date Recorded Do you often feel lonely or isolated from those around you? 4 08/29/2023 Alcohol Use Answer Date Recorded How often do you have a drink containing alcohol ? 0 07/30/2022 How many drinks containing a lcohol do you have on a typical day when you are drinking? 0 07/30/2022 How often do you have five or more drinks on one occasion? 0 07/30/2022 Financial Resource Strain Answer Date R ecorded Difficulty of Paying Living Expenses 3 08/29/2023 Difficulty of Paying Living Expenses Not on file 08/29/2023 Food Insecurity Answer Date Recorded Do you worry your food will run out before you are able to buy more? 1 08/29/2023 Transportation Needs Answer Date Record ed Does lack of transportation keep you from medica l appointments? 1 08/29/2023 Does lack of transportation keep you from work, meetings or getting things that you need? 1 08/29/2023 Housing Stability Answer Date Recorded What is your housing situation today? 1 08/29/2023 Interpersonal Safety Answer Date Record ed Are you being hit, kicked, p ushed or yelled at (see row info)? No 05/01/2024 Interpersonal Safety Abuse 12 - 18 Not on file 05/01/2024 Interpersonal Safety Ambulatory Vulnerability No t on file 05/01/2024 Utilities Answer Date Recorded Do you have trouble paying f or utilities (for example, heat, electricity, water, phone)? 1 08/29/2023 Comments No Sex and Gender Information Value Date Recorded Sex Assigned at Female 05/01/2024 1:52 PM CDT Legal Sex Female 3:49 PM [employer] Gender Identity Female 05/01/2024 1:52 PM CDT Sexual Orientation Straight 05/01/2024 1: 52 PM CDT Occupation Industry Job Start Date Job End Date Not on file Not on file Not on file Not on file Obstetrics History Para Term AB IAB SAB Ectopic Multiple Livin g Live Births 1 1 1 1 1 Date Outcome GA Total Labor Labor/2nd/3rd Weight Sex Type Anes PTL Mgehann A1 A5 Name Clin 014 Term 41w 2d 4.17 kg (9 lb 3 oz) M CS-Un spec N Living 7 9 STEFFI SATYA (NASI ) Delivery Location:[facility] Last Filed Vital Signs Vital Sign Reading Time Taken Comments Blood Pressure 104/60 05/16/2024 1:15 PM CDT Pulse 114 05/16/2024 1:15 PM CDT Temperature 36.2 C (97.1 F) 05/01/2024 1:43 PM CDT Respiratory Rate 16 05/16/2024 1:15 PM CDT Oxygen Saturation 98% 05/16/2024 1:15 PM CDT Inhaled Oxygen Concentration - - Weight 182.3 kg (401 lb 12.8 oz) 05/16/2024 1:15 PM CDT Height 170.2 cm (5' 7) 05/01/2024 1:43 PM CDT Body Mass Index 62.93 05/01/2024 1:43 PM CDT Plan of Treatment Upcoming Encounters Date Type Department Care Team (Late st Contact Info) Description 07/20/2024 12:15 PM CDT Appointment [facility] [address] [place] [address] Livier Gorman, PT [address] [place] [address] 07/24/2024 1:45 PM CDT Appointment [facility] [address] [place] [address] Livier Gorman, PT [address] [place] [address] 07/27/2024 12:15 PM CDT Appointment [facility] [address] [place] [address] Livier Gorman, PT [address] [place] [address] 08/01/2024 1:00 PM CDT Appointment [facility] [address] [place] [address] Livier Gorman, PT [address] [place] [address] 08/21/2024 1:50 PM CDT Office Visit [facility] [id number] [place] [address] [place] [address] [place], [place] [id number] Health Maintenance Due Date Last Done Comments Tetanus booster 07/06/2023 07/05/2013, 10/09, 02/16/2005, Additional history exists COVID-19 vaccine series () 10/09/2023 03/12/2021, 06/12/2020, 05/14/2020 Depression screening for age 12+ 09/01/2024 09/02/2023, 09/01/2023, 09/01/2023, Additional history exists BMI (ht and wt on same day) for age 18+ 03/26/2025 03/26/2024, 01/11/2024, 11/30/2023, Additional history exists Pap test for age 21-65 10/22/2027 , 10/21/2022, 05/22/2018 (Verified in Care Everywhere or Patient Record), Additional history exists Hepatitis C screening for age 18-79 Completed 08/18/2004 Hepatitis B series for 19+ Completed 01/12, 08/14/2004, 07/10/2004 HIV for age 15-65 Completed 01/08/2013 Tdap Completed 07/05/2013, 11/03/2011 Influenza Vaccine Completed 11/30/2023, , 12/31/2021, Additional history exists Pneumococcal series for age 6-49 Aged Out No longer eligible based on patient's age to complete this topic Procedures Procedure Name Priority Date/Time Associated Diagnosis Comments US ABDOMEN LIMITED RUQ GRISEL 05/17/2024 8:00 AM CDT Biliary colic symptom Abdominal pain, RUQ (right upper quadrant) Elevated LFTs HEPATIC FUNCTION PANEL Routine 05/16/2024 1:59 PM CDT Biliary colic symptom Elevated LFTs LIPASE Routine 05/16/2024 1:59 PM CDT Abdominal pain, RUQ (right upper quadrant) HEMOGLOBIN A1C Routine 05/16/2024 1:59 PM CDT Prediabetes TROPONIN T (HS) ONE TIME Timed 05/01/2024 5:23 PM CDT US PELVIS COMPLETE TA AND TV STAT 05/01/2024 5:15 PM CDT XR CHEST 2 VIEWS PA AND LATERAL STAT 05/01/2024 3:44 PM CDT RED CELL MORPHOLOGY STAT 05/01/2024 3 :27 PM CDT PLATELET ESTIMATE STAT 05/01/2024 3:2 7 PM CDT MANUAL DIFFERENTIAL STAT 05/01/2024 3 :27 PM CDT CBC WITH AUTO DIFFERENTIAL STAT 05/01/2024 3:27 PM CDT TROPONIN T (HS) ACUTE W/2HR REFLEX STAT 05/01/2024 3:27 PM CDT LIPASE STAT 05/01/2024 3:27 PM CDT COMP METABOLIC PANEL STAT 05/01/2024 3:27 PM CDT CBC WITH AUTO DIFFERENTIAL STAT 05/01/2024 3:27 PM CDT URINE STAT 05/01/2024 2:32 PM CDT UA W/ SEDIMENT EXAM REFLEXED PER CRITERIA STAT 05/01/2024 2:32 PM CDT EKG 12 LEAD STAT 05/01/2024 1:58 PM CDT UA W/ SEDIMENT EXAM REFLEXED PER CRITERIA STAT 04/18/2024 5:05 PM CDT TROPONIN T (HS) ONE TIME Timed 04/18/2024 4:54 PM CDT SCAN-CARDIAC STRIP 04/18/2024 3: 34 PM CDT CTA CHEST ABDOMEN PELVIS AORTIC DISSECTION W STAT 04/18/2024 3:11 PM CDT D-DIMER,QUANTITATIVE STAT 04/18/2024 2:48 PM CDT TROPONIN T (HS) ACUTE W/2HR REFLEX STAT 04/18/2024 2:48 PM CDT CBC W PLT NO DIFF STAT 04/18/2024 2:4 8 PM CDT BASIC METABOLIC PANEL STAT 04/18/2024 2:48 PM CDT EKG 12 LEAD STAT 04/18/2024 1:57 PM CDT HPV HIGH RISK Routine 10/21/2022 2:20 PM CDT Encounter for screening for cervical cancer ANTI HIV 1/2 Routine 01/08/2013 5:39 PM [employer] Supervision of normal first (HC) ANTI HCV Routine 08/18/2004 1:00 PM CDT from Last 3 Months or Most Recently Relevant to Health Maintenance Results * US ABDOMEN LIMITED RUQ (05/17/2024 8:00 AM CDT) Anatomical Region Laterality Modality Abdomen, LIVER Ultrasound 05/17/2024 8:35 AM CDT Impressions 05/17/2024 8:35 AM CDT Hepatic steatosis and hepatomegaly. Dictated by Clara Soto MD @ 05/17/2024 8:35:19 AM (Electronically Signed) Narrative 05/17/2024 8:35 AM CDT For Patients: As a result of the Cures Act, medical imaging exams and procedure reports are released immediately into your electronic medical record. You may view this report before your referring provider. If you have questions, please contact your health care provider. INDICATION: Biliary colic, right upper quadrant pain, elevated LFTs COMPARISON: 04/18/2024 CT chest abdomen and pelvis TECHNIQUE: Dietrich-scale and color Doppler ultrasound of the right upper quadrant. FINDINGS: Pancreas: Largely obscured by bowel gas but normal where seen. Liver: Diffusely increased hepatic echogenicity and mildly coarsened echotexture. Limited through transmission. No discrete mass seen but would be difficult to tell. The liver is mildly enlarged and measures about 18 centimeters in length. Patent portal vein with normal directional flow. Gallbladder and bile ducts: The gallbladder is normal. No stones or sludge. Normal wall thickness. Negative sonographic Jorge`s sign. No pericholecystic fluid. No intrahepatic or extrahepatic biliary ductal dilatation. The common bile duct measures 2 mm. RIGHT Kidney: Renal length: 11.5 cm Parenchyma: Normal thickness and normal echogenicity. Cyst: None Mass: None Calculi: None Urinary tract: Not dilated. Abdominal aorta: Normal. No aneurysm. Ascites: None. Procedure Note Clara Soto MD - 05/17/2024 For Patients: As a result of the Century Cures Act, medical imagingexams and procedure reports are released immediately into your electronicmedical record. You may view this report before your referring provider.If you have questions, please contact your health care provider. INDICATION: Biliary colic, right upper quadrant pain, elevated LFTs COMPARISON: 04/18/2024 CT chest abdomen and pelvis TECHNIQUE: Deitrich-scale and color Doppler ultrasound of the right upper quadrant. FINDINGS: Pancreas: Largely obscured by bowel gas but normal where seen. Liver: Diffusely increased hepatic echogenicity and mildly coarsenedechotexture. Limited through transmission. No discrete mass seen but wouldbe difficult to tell. The liver is mildly enlarged and measures about 18centimeters in length. Patent portal vein with normal directional flow. Gallbladder and bile ducts: The gallbladder is normal. No stones orsludge. Normal wall thickness. Negative sonographic Jorge`s sign. Nopericholecystic fluid. No intrahepatic or extrahepatic biliary ductaldilatation. The common bile duct measures 2 mm. RIGHT Kidney: Renal length: 11.5 cm Parenchyma: Normal thickness and normal echogenicity. Cyst: None Mass: None Calculi: None Urinary tract: Not dilated. Abdominal aorta: Normal. No aneurysm. Ascites: None. IMPRESSION: Hepatic steatosis and hepatomegaly. Dictated by Clara Soto MD @ 05/17/2024 8:35:19 AM (Electronically Signed) Clara Neil DO US Final Result * (ABNORMAL) HEMOGLOBIN A1C (05/16/2024 1:59 PM CDT) HEMOGLOBIN A1C 6.3(H) <5.7 % of total Hgb [facility] Comment: For someone without known diabetes, a hemoglobin A1c value between 5.7% and 6.4% is consistent with prediabetes and should be confirmed with a follow-up test. For someone with known diabetes, a value <7% indicates that their diabetes is well controlled. A1c targets should be individualized based on duration of diabetes, age, comorbid conditions, and other considerations. This assay result is consistent with an increased risk of diabetes. Currently, no consensus exists regarding use of hemoglobin A1c for diagnosis of diabetes for children. Blood BLOOD SPECIMEN / Unknown 05/16/2024 1:59 PM CDT 05/16/2024 2:00 PM CDT Clara Neil DO CHEMISTRY Final Result Performing Organization Address City/[facility]/ZIP Co de Phone Number [address] [address], [facility] [address] * LIPASE (05/16/2024 1:59 PM CDT) Only the most recent of2 resultswithin the time period is included. LIPASE 8 7 - 60 U/L [facility] Blood BLOOD SPECIMEN / Unknown 05/16/2024 1:59 PM CDT 05/16/2024 2:00 PM CDT Clara Neil DO CHEMISTRY Final Result [facility] [address] [address], [facility] [address] [place] [address] * (ABNORMAL) LIVER PANEL (HEPATIC FUNCTION PANEL) (05/16/2024 1:59 PM CDT) Pathologist [facility] PROTEIN, TOTAL 7.2 6.1 - 8.1 g/dL [facility] ALBUMIN 4.0 3.6 - 5.1 g/dL [facility] GLOBULIN 3.2 1.9 - 3.7 g/dL (calc) [facility] ALBUMIN/GLOBULIN RATIO 1.3 1.0 - 2.5 (calc) [facility] BILIRUBIN, TOTAL 0.3 0.2 - 1.2 mg/dL [facility] BILIRUBIN, DIRECT 0.0 < OR = 0.2 mg/dL [facility] BILIRUBIN, INDIRECT 0.3 0.2 - 1.2 mg/dL (calc) [facility] ALKALINE PHOSPHATASE 59 31 - 125 U/L [facility] AST 28 10 - 30 U/L [facility] ALT 41(H) 6 - 29 U/L [facility] Blood BLOOD SPECIMEN / Unknown 05/16/2024 1:59 PM CDT 05/16/2024 2:00 PM CDT Clara Neil DO CHEMISTRY Final Result [facility] [address] [place] [address], [facility] [address] [place] [address] * TROPONIN T (HS) ONE TIME (05/01/2024 5:23 PM CDT) Only the most recent of2 resultswithin the time period is included. Pathologist [facility] TROPONIN T HS <6 6-10 ng/L ng/L 05/01/2024 6:12 PM CDT [facility] Blood BLOOD SPECIMEN / Unknown Butterfly / Unknown 05/01/2024 5:23 PM CDT 05/01/2024 5:58 PM CDT us Dot CANALES CHEMISTRY Final R esult [facility] [address] [place] [address] * US PELVIS COMPLETE TA AND TV (05/01/2024 5:15 PM CDT) Anatomical Region Laterality Modality Pelvis Ultrasound 05/01/2024 6:30 PM CDT Impressions 05/01/2024 6:30 PM CDT Left ovary was not seen. Otherwise, no acute intrapelvic abnormality identified sonographically. Dictated by Jovon Oropeza MD @ 05/01/2024 6:30:21 PM (Electronically Signed) Narrative 05/01/2024 6:30 PM CDT For Patients: As a result of the Cures Act, medical imaging exams and procedure reports are released immediately into your electronic medical record. You may view this report before your referring provider. If you have questions, please contact your health care provider. INDICATION: Pain/tenderness. TECHNIQUE: Ultrasound pelvis transabdominal and transvaginal. Real-time sonographic images with spectral and color Doppler imaging of the ovaries were obtained. COMPARISON: CTA chest/abdomen/pelvis dated 04/18/2024. FINDINGS: Uterus: 6.4 x 4.0 x 4.2 cm. Nabothian cysts are noted. Endometrium: Within normal limits. The endometrial thickness measures 0.5 cm. Mass: No uterine fibroids identified. Free fluid: No significant pelvic free fluid identified. Right ovary: 2.3 x 2.7 x 2.0 cm. Dominant follicle in the right ovary measuring up to 1.6 cm. Normal arterial and venous blood flow. Left ovary: Not seen sonographically. Procedure Note Jovon Oropeza MD - 05/01/2024 For Patients: As a result of the Cures Act, medical imagingexams and procedure reports are released immediately into your electronicmedical record. You may view this report before your referring provider.If you have questions, please contact your health care provider. INDICATION: Pain/tenderness. TECHNIQUE: Ultrasound pelvis transabdominal and transvaginal. Real-time sonographicimages with spectral and color Doppler imaging of the ovaries wereobtained. COMPARISON: CTA chest/abdomen/pelvis dated 04/18/2024. FINDINGS: Uterus: 6.4 x 4.0 x 4.2 cm. Nabothian cysts are noted. Endometrium: Within normal limits. The endometrial thickness measures 0.5cm. Mass: No uterine fibroids identified. Free fluid: No significant pelvic free fluid identified. Right ovary: 2.3 x 2.7 x 2.0 cm. Dominant follicle in the right ovarymeasuring up to 1.6 cm. Normal arterial and venous blood flow. Left ovary: Not seen sonographically. IMPRESSION: Left ovary was not seen. Otherwise, no acute intrapelvic abnormalityidentified sonographically. Dictated by Jovon Oropeza MD @ 05/01/2024 6:30:21 PM (Electronically Signed) us Dot Cabral PA US Final R esult * XR CHEST 2 VIEWS PA AND LATERAL (05/01/2024 3:44 PM CDT) Anatomical Region Laterality Modality CHEST, THORAX, Lung, HEART Digit al Radiography 05/01/2024 3:52 PM CDT Impressions 05/01/2024 3:52 PM CDT No acute findings and no significant change from the prior exam. Dictated by Margarita Morales MD @ 05/01/2024 3:52:41 PM (Electronically Signed) Narrative 05/01/2024 3:52 PM CDT For Patients: As a result of the Cures Act, medical imaging exams and procedure reports are released immediately into your electronic medical record. You may view this report before your referring provider. If you have questions, please contact your health care provider. INDICATION: Chest pain. TECHNIQUE: Chest 2 views. COMPARISON: September 02, 2023. FINDINGS: Cardiovascular and mediastinum: Cardiomediastinal silhouette is within normal limits. Lungs and pleural spaces: Lungs are clear. No sign of pleural effusion. No pneumothorax. Bones and soft tissues: No significant findings. Procedure Note Margarita Morales MD - 05/01/2024 For Patients: As a result of the Cures Act, medical imagingexams and procedure reports are released immediately into your electronicmedical record. You may view this report before your referring provider.If you have questions, please contact your health care provider. INDICATION: Chest pain. TECHNIQUE: Chest 2 views. COMPARISON: September 02, 2023. FINDINGS: Cardiovascular and mediastinum: Cardiomediastinal silhouette is withinnormal limits. Lungs and pleural spaces: Lungs are clear. No sign of pleural effusion.No pneumothorax. Bones and soft tissues: No significant findings. IMPRESSION: No acute findings and no significant change from the prior exam. Dictated by Margarita Morales MD @ 05/01/2024 3:52:41 PM (Electronically Signed) us Dot [facility] GENERAL IMAGING Final R esult * TROPONIN T (HS) ACUTE W/2HR REFLEX (05/01/2024 3:27 PM CDT) Only the most recent of2 resultswithin the time period is included. TROPONIN T HS <6 6-10 ng/L ng/L 05/01/2024 3:54 PM CDT [facility] Blood BLOOD SPECIMEN / Unknown Capillary / Unknown 05/01/2024 3:27 PM CDT 05/01/2024 3:[address] [facility] - 05/01/2024 3:54 PM CDT hs-cTnT (Elecsys Troponin T Gen 5) concentration (s) above the sex-specific 99th percentile (16 ng/L or greater for males or 11 ng/L or greater for females) are indicative of myocardial injury. If initial hs-cTnT <=100 ng/L at presentation, a 0h/2h ABSOLUTE (ng/L) delta change (rising or falling) of >=10 ng/L suggests a significant change, whereas a 0h/2h delta change <=3 ng/L suggests no significant change. If initial hs-cTnT >100 ng/L at presentation, a 0h/2h/ RELATIVE (percent, %) delta change of 20% is suggested to distinguish patients with acute vs. chronic myocardial injury. There are multiple etiologies that can cause hs-cTnT increases above the 99th percentile (myocardial injury) other than acute myocardial infarction. Clinical context and careful clinical evaluation are critical for diagnosis and risk-stratification. The diagnosis of acute myocardial infarction requires a rising and/or falling pattern in hs-cTnT concentrations with at least one value above the sex-specific 99th percentile PLUS at least one of the following clinical criteria: ischemic symptoms, new or presumed new significant ST-T wave changes or new LBBB, development of pathological Q waves, imaging evidence of new loss of viable myocardium or new regional wall motion abnormality, or identification of intracoronary atherothrombosis or an acute angiographic culprit on coronary angiography. In appropriate low-risk patients with a non-ischemic electrocardiogram without active chest pain with a symptom onset >3-hours without recurrence, a single initial hs-cTnT<6 ng/L identifies patient with a very low risk in emergency department patient population. us Dot [facility] CHEMISTRY Final R esult [facility] [address] [place] [address] * CBC WITH AUTO DIFFERENTIAL (05/01/2024 3:27 PM CDT) WHITE BLOOD COUNT 8.8 4.5 - 11.0 thou/cu mm 05/01/2024 4:08 PM [facility] RED BLOOD COUNT 4.30 4.00 - 5.20 mil/cu mm 05/01/2024 4:08 PM T [facility] HEMOGLOBIN 12.5 12.0 - 16.0 g/dL 05/01/2024 4:08 PM [facility] HEMATOCRIT 38.2 33.0 - 51.0 % 05/01/2024 4:08 PM [facility] MCV 89 80 - 100 fL 05/01/2024 4:08 PM [facility] MCH 29.1 26.0 - 34.0 pg 05/01/2024 4:08 PM CDT [facility] MCHC 32.7 32.0 - 36.0 g/dL 05/01/2024 4:08 PM CDT [facility] RDW 14.1 11.5 - 15.5 % 05/01/2024 4:08 PM CDT [facility] PLATELET COUNT 294 140 - 440 thou/cu mm 05/01/2024 4:08 PM CDT [facility] MPV 10.9 6.5 - 11.0 fL 05/01/2024 4:08 PM CDT [facility] Blood BLOOD SPECIMEN / Unknown Capillary / Unknown 05/01/2024 3:27 PM CDT 05/01/2024 3:31 PM CDT [facility]EMATOLOGY [facility] Performing Organization Address City/[facility]/ZIP Co de Phone Number [facility] [address] [place] [address] * RED CELL MORPHOLOGY (05/01/2024 3:27 PM CDT) RBC COMMENT RBC morphology appears normal RBC morphology appears normal, RBC morphology within normal limits for newborns. 05/01/2024 4:08 PM CDT [facility] Blood BLOOD SPECIMEN / Unknown Capillary / Unknown 05/01/2024 3:27 PM CDT 05/01/2024 3:31 PM CDT [facility]EMATOLOGY [facility] [address] [place] [address] * PLATELET ESTIMATE (05/01/2024 3:27 PM CDT) PLATELET ESTIMATE Adequate Adequate, No estimate 05/01/2024 4:08 PM CDT [facility] Blood BLOOD SPECIMEN / Unknown Capillary / Unknown 05/01/2024 3:27 PM CDT 05/01/2024 3:31 PM CDT [facility] HEMATOLOGY Final R esult [facility] [address] [place] [address] * (ABNORMAL) MANUAL DIFFERENTIAL (05/01/2024 3:27 PM CDT) % NEUTROPHILS 47.0 % 05/01/2024 4:08 PM T [facility] % LYMPHOCYTES 46.0 % 05/01/2024 4:08 PM T [facility] % MONOCYTES 7.0 % 05/01/2024 4:08 PM T [facility] % EOSINOPHILS 0.0 % 05/01/2024 4:08 PM T [facility] % BASOPHILS 0.0 % 05/01/2024 4:08 PM [facility] NEUTROPHILS ABSOLUTE 4.1 1.7 - 7.0 thou/cu mm 05/01/2024 4:08 PM T [facility] LYMPHOCYTES ABSOLUTE 4.0(H) 0.9 - 2.9 thou/cu mm 05/01/2024 4:08 PM T [facility] MONOCYTES ABSOLUTE 0.6 <0.9 thou/cu mm 05/01/2024 4:08 PM [facility] EOSINOPHILS ABSOLUTE 0.0 <0.5 thou/cu mm 05/01/2024 4:08 PM T [facility] BASOPHILS ABSOLUTE 0.0 <0.3 thou/cu mm 05/01/2024 4:08 PM T [facility] Blood BLOOD SPECIMEN / Unknown Capillary / Unknown 05/01/2024 3:27 PM CDT 05/01/2024 3:31 PM CDT [facility] HEMATOLOGY Final R esult [facility] [address] [place] [address] * (ABNORMAL) COMP METABOLIC PANEL (05/01/2024 3:27 PM [facility]) SODIUM 141 136 - 145 mmol/L 05/01/2024 3:54 PM [facility] POTASSIUM 4.4 3.5 - 5.1 mmol/L 05/01/2024 3:54 PM [facility] CHLORIDE 104 98 - 107 mmol/L 05/01/2024 3:54 PM [facility] CO2,TOTAL 24 22 - 29 mmol/L 05/01/2024 3:54 PM [facility] ANION GAP 13 5 - 18 05/01/2024 3:54 PM [facility] GLUCOSE 115(H) 70 - 99 mg/dL 05/01/2024 3:54 PM [facility] CALCIUM 9.4 8.8 - 10.4 mg/dL 05/01/2024 3:54 PM [facility] Comment: Reference ranges for this test were updated on 12/13/2023 to reflect our healthy population more accurately. Reference range changes are not retroactively applied to results, but previous results using the same methodology can be interpreted in the context of the new reference range. BUN 13 6 - 20 mg/dL 05/01/2024 3:54 PM [facility] CREATININE 0.54 0.50 - 0.90 mg/dL 05/01/2024 3:54 PM [facility] BUN/CREAT RATIO 24(H) 10 - 20 3:54 PM [facility] eGFR >90 >90 mL/min/1. 73m2 05/01/2024 3:54 PM [facility] Comment:As of 2021, eG FR is calculated by the CKD-EPI creatinine equation without race adjustment. eGFR can be influenced by muscle mass, exercise, and diet. The reported eGFR is an estimation only and is only applicable if the renal function is stable. ALBUMIN 3.9(L) 4.0 - 4.9 g/dL 05/01/2024 3:54 PM [facility] PROTEIN,TOTAL 7.3 6.0 - 8.0 g/dL 05/01/2024 3:54 PM T [facility] BILIRUBIN,TOTAL 0.2 0.0 - 1.2 mg/dL 05/01/2024 3:54 PM [facility] ALK PHOSPHATASE 55 35 - 104 IU/L 05/01/2024 3:54 PM [facility] ALT (SGPT) 35 10 - 35 IU/L 05/01/2024 3:54 PM T [facility] AST (SGOT) 36(H) 10 - 35 IU/L 05/01/2024 3:54 PM T [facility] Blood BLOOD SPECIMEN / Unknown Capillary / Unknown 05/01/2024 3:27 PM CDT 05/01/2024 3:31 PM CDT us [facility] CHEMISTRY Final R esult [facility] [address] [place] [id number] * (ABNORMAL) UA W/ SEDIMENT EXAM REFLEXED PER CRITERIA (05/01/2024 2:32 PM CDT) Only the most recent of2 resultswithin the time period is included. COLOR Yellow Yellow Color 05/01/2024 2:39 PM [facility] CLARITY Clear Clear Clarity 05/01/2024 2:39 PM [facility] SPECIFIC GRAVITY,URINE >=1.030(A) 1.010, 1.015, 1.020, 1.025 05/01/2024 2:39 PM [facility] PH,URINE 5.5 6.0, 7.0, 8.0, 5.5, 6.5, 7.5, 8.5 05/01/2024 2:39 PM [facility] UROBILINOGEN, QUALITATIVE Normal Normal EU/dl 05/01/2024 2:39 PM [facility] PROTEIN, URINE Negative Negative mg/dL 05/01/2024 2:39 PM [facility] GLUCOSE, URINE Negative Negative mg/dL 05/01/2024 2:39 PM CDT [facility] KETONES,URINE Negative Negative mg/dL 05/01/2024 2:39 PM CDT [facility] BILIRUBIN,URI NE Negative Negative 05/01/2024 2:39 PM CDT [facility] OCCULT BLOOD,URINE Negative Negative 05/01/2024 2:39 PM CDT [facility] NITRITE Negative Negative 05/01/2024 2:39 PM CDT [facility] LEUKOCYTE ESTERASE Negative Negative 05/01/2024 2:39 PM CDT [facility] Urine URINE SPECIMEN / Unknown Non-Blood / Unknown 05/01/2024 2:32 PM CDT 05/01/2024 2:35 PM CDT Dot [place] URINE Final R esult Performing Organization Address City/[facility]/ZIP Co de Phone Number [facility] [address] [place] [address] * URINE (05/01/2024 2:32 PM CDT) [facility] ,URIN E Negative Negative 05/01/2024 2:40 PM CDT [facility] Urine URINE SPECIMEN / Unknown Non-Blood / Unknown 05/01/2024 2:32 PM CDT 05/01/2024 2:35 PM CDT Dot [place] URINE Final R esult Performing Organization Address City/[facility]/ZIP Co de Phone Number [facility] [address] [place] [address] * EKG 12 LEAD (05/01/2024 1:58 PM CDT) Only the most recent of2 resultswithin the time period is included. Pathologist [facility] Interpretation Normal sinus rhythm Normal ECG When compared with ECG of 18-Apr-2024 13:57, No significant change was found BEYOND NOW Ventricular Rate 90 BPM BEYOND NOW Atrial Rate 90 BPM BEYOND NOW P-R Interval 148 ms BEYOND NOW QRS Duration 76 ms BEYOND NOW QT 346 ms BEYOND NOW QTc 423 ms BEYOND NOW P [place] 51 degrees BEYOND NOW R [place] 35 degrees BEYOND NOW T [place] 43 degrees BEYOND NOW 05/01/2024 1:58 PM CDT 05/01/2024 5:01 PM CDT us Dot [facility] EKG ORD Final R esult BEYOND NOW [place], [place] * SCAN-CARDIAC STRIP (04/18/2024 3:34 PM CDT) us Scanner OTHER Final Result * CTA CHEST ABDOMEN PELVIS AORTIC DISSECTION W (04/18/2024 3:11 PM CDT) Anatomical Region Laterality Modality CHEST, Abdomen, Pelvis, AORTA, THORAX, HEART Computed Tomography 04/18/2024 3:42 PM CDT Impressions 04/18/2024 3:42 PM CDT 1. No evidence of thoracoabdominal aortic aneurysm, intramural hematoma, penetrating atherosclerotic ulcer, or dissection. 2. No other findings to explain the history of sudden onset chest pain and bilateral lower extremity numbness. 3. Incidental findings described in the body of the report. Please note that all CT scans at this facility use dose modulation, iterative reconstruction, and/or weight-based dosing when appropriate to reduce radiation dose to as low as reasonably achievable. Dictated by Bart Reddy MD @ 04/18/2024 3:42:13 PM (Electronically Signed) Narrative 04/18/2024 3:42 PM CDT For Patients: As a result of the Century Cures Act, medical imaging exams and procedure reports are released immediately into your electronic medical record. You may view this report before your referring provider. If you have questions, please contact your health care provider. INDICATION: Sudden onset chest pain. Bilateral lower extremity numbness, not otherwise described. Suspected acute aortic syndrome. COMPARISON: Abdominopelvic CT dated 08/25/2023. TECHNIQUE: CT of the chest prior to and following IV contrast administration, with post contrast imaging of the abdomen and pelvis following administration of 150 cc of Omnipaque 350 intravenous contrast. Please note that all CT scans at this facility use dose modulation, iterative reconstruction, and/or weight-based dosing when appropriate to reduce radiation dose to as low as reasonably achievable. FINDINGS: THORAX Thoracic Aorta: No evidence of thoracic aortic aneurysm, intramural hematoma, penetrating atherosclerotic ulcer, or dissection. Incidental findings described in the body of the report. Pulmonary Arterial Vasculature: Opacification of the pulmonary arterial tree is adequate for assessment of pulmonary embolism. No intraluminal pulmonary arterial filling defect is identified to indicate a pulmonary embolism. Visualized Lower Neck: No lower cervical adenopathy. Lungs: Medial segment right middle lobe subpleural ground-glass opacity and minor reticulation consistent with nonspecific fibrosis. Thin uniform curvilinear opacity contacting the costal pleural surface in the lingula consistent with subsegmental atelectasis or nonspecific minor fibrosis. Posterior segment right lower lobe paraspinal subpleural coarse curvilinear opacity also consistent with subsegmental atelectasis or nonspecific minor fibrosis. Otherwise, bilateral lower lobe dependent patchy ground-glass opacities are most consistent with hypoventilatory changes. Pleura: No pleural effusion. No pneumothorax. Mediastinum: Thoracic aorta and pulmonary trunk are normal in caliber. Heart and pericardium are without significant findings. Trachea and esophagus are normal in appearance. No mediastinal lymphadenopathy. ABDOMEN NB: Timing of imaging relative to contrast bolus administration limits assessment of the abdominopelvic viscera and venous vasculature on this arterial phase CT angiogram. Abdominal Aorta: No aneurysm, intramural hematoma, penetrating atherosclerotic ulcer, or dissection. Abdominal aorta and its major proximal branches including the celiac, superior mesenteric, inferior mesenteric, renal, and bilateral common iliac arteries are patent. Liver: Normal contour and attenuation. No significant focal lesion. No intrahepatic biliary ductal dilatation. Portal and hepatic veins are not enhanced on this arterial phase CT angiogram. Gallbladder: Normal size. No pericholecystic inflammatory changes. Normal common duct caliber. Pancreas: Normal contour and attenuation. No peripancreatic inflammatory changes. No significant focal lesion. Normal main duct caliber. Spleen: Not enlarged. No significant focal lesion. The splenic vein is not enhanced on this arterial phase CT angiogram. Adrenal Glands: Symmetrical adrenal glands. No significant focal lesion. Kidneys: Malrotated right kidney. Normal bilateral renal attenuation. No significant focal lesion. No nephrolith. No dilatation of the intrarenal collecting systems. No ureteral stone. Nondilated ureters. Retroaortic left renal vein. Gastrointestinal tract: Normal caliber, attenuation and wall thickness of the gastrointestinal tract. No inflammatory changes. Normal small bowel mesentery. Appendectomy. Vascular: Inferior vena cava, portal and superior mesenteric veins are not opacified on this arterial phase CT angiogram and therefore their patency and caliber cannot be determined. Peritoneal Cavity/Retroperitoneum: No ascites. No adenopathy. PELVIS No bladder lesion is identified. No significant incidental findings related to the uterus or uterine adnexa. No ascites. No adenopathy. SKELETON AND BODY WALL Chronic appearing T11 mild superior endplate compression deformity and central superior vertebral body Schmorl`s node. Procedure Note Bart Reddy MD - 04/18/2024 For Patients: As a result of the Cures Act, medical imagingexams and procedure reports are released immediately into your electronicmedical record. You may view this report before your referring provider.If you have questions, please contact your health care provider. INDICATION: Sudden onset chest pain. Bilateral lower extremity numbness, not otherwisedescribed. Suspected acute aortic syndrome. COMPARISON: Abdominopelvic CT dated 08/25/2023. TECHNIQUE: CT of the chest prior to and following IV contrast administration, withpost contrast imaging of the abdomen and pelvis following administrationof 150 cc of Omnipaque 350 intravenous contrast. Please note that all CTscans at this facility use dose modulation, iterative reconstruction,and/or weight-based dosing when appropriate to reduce radiation dose to aslow as reasonably achievable. FINDINGS: THORAX Thoracic Aorta: No evidence of thoracic aortic aneurysm, intramuralhematoma, penetrating atherosclerotic ulcer, or dissection. Incidentalfindings described in the body of the report. Pulmonary Arterial Vasculature: Opacification of the pulmonary arterialtree is adequate for assessment of pulmonary embolism. No intraluminalpulmonary arterial filling defect is identified to indicate a pulmonaryembolism. Visualized Lower Neck: No lower cervical adenopathy. Lungs: Medial segment right middle lobe subpleural ground-glass opacity and minorreticulation consistent with nonspecific fibrosis. Thin uniformcurvilinear opacity contacting the costal pleural surface in the lingulaconsistent with subsegmental atelectasis or nonspecific minor fibrosis.Posterior segment right lower lobe paraspinal subpleural coarsecurvilinear opacity also consistent with subsegmental atelectasis ornonspecific minor fibrosis. Otherwise, bilateral lower lobe dependentpatchy ground-glass opacities are most consistent with hypoventilatorychanges. Pleura: No pleural effusion. No pneumothorax. Mediastinum: Thoracic aorta and pulmonary trunk are normal in caliber. Heart andpericardium are without significant findings. Trachea and esophagus arenormal in appearance. No mediastinal lymphadenopathy. ABDOMEN NB: Timing of imaging relative to contrast bolus administration limitsassessment of the abdominopelvic viscera and venous vasculature on thisarterial phase CT angiogram. Abdominal Aorta: No aneurysm, intramural hematoma, penetratingatherosclerotic ulcer, or dissection. Abdominal aorta and its major proximal branches including the celiac,superior mesenteric, inferior mesenteric, renal, and bilateral commoniliac arteries are patent. Liver: Normal contour and attenuation. No significant focal lesion. No intrahepatic biliary ductal dilatation. Portal and hepatic veins are not enhanced on this arterial phase CTangiogram. Gallbladder: Normal size. No pericholecystic inflammatory changes. Normal common ductcaliber. Pancreas: Normal contour and attenuation. No peripancreatic inflammatory changes. No significant focal lesion. Normal main duct caliber. Spleen: Not enlarged. No significant focal lesion. The splenic vein is notenhanced on this arterial phase CT angiogram. Adrenal Glands: Symmetrical adrenal glands. No significant focal lesion. Kidneys: Malrotated right kidney. Normal bilateral renal attenuation. Nosignificant focal lesion. No nephrolith. No dilatation of the intrarenal collecting systems. No ureteral stone. Nondilated ureters. Retroaortic left renal vein. Gastrointestinal tract: Normal caliber, attenuation and wall thickness of the gastrointestinaltract. No inflammatory changes. Normal small bowel mesentery.Appendectomy. Vascular: Inferior vena cava, portal and superior mesenteric veins are not opacifiedon this arterial phase CT angiogram and therefore their patency andcaliber cannot be determined. Peritoneal Cavity/Retroperitoneum: No ascites. No adenopathy. PELVIS No bladder lesion is identified. No significant incidental findings related to the uterus or uterineadnexa. No ascites. No adenopathy. SKELETON AND BODY WALL Chronic appearing T11 mild superior endplate compression deformity andcentral superior vertebral body Schmorl`s node. IMPRESSION: 1. No evidence of thoracoabdominal aortic aneurysm, intramural hematoma,penetrating atherosclerotic ulcer, or dissection. 2. No other findings to explain the history of sudden onset chest pain andbilateral lower extremity numbness. 3. Incidental findings described in the body of the report. Please note that all CT scans at this facility use dose modulation,iterative reconstruction, and/or weight-based dosing when appropriate toreduce radiation dose to as low as reasonably achievable. Dictated by Bart Reddy MD @ 04/18/2024 3:42:13 PM (Electronically Signed) Bon Varghese MD CT Final Re sult * CBC W PLT NO DIFF (04/18/2024 2:48 PM CDT) WHITE BLOOD COUNT 6.9 4.5 - 11.0 thou/cu mm 04/18/2024 3:01 PM [facility] RED BLOOD COUNT 4.38 4.00 - 5.20 mil/cu mm 04/18/2024 3:01 PM [facility] HEMOGLOBIN 12.8 12.0 - 16.0 g/dL 04/18/2024 3:01 PM [facility] HEMATOCRIT 39.5 33.0 - 51.0 % 04/18/2024 3:01 PM [facility] MCV 90 80 - 100 fL 04/18/2024 3:01 PM [facility] MCH 29.2 26.0 - 34.0 pg 04/18/2024 3:01 PM [facility] MCHC 32.4 32.0 - 36.0 g/dL 04/18/2024 3:01 PM [facility] RDW 14.2 11.5 - 15.5 % 04/18/2024 3:01 PM [facility] PLATELET COUNT 306 140 - 440 thou/cu mm 04/18/2024 3:01 PM [facility] MPV 10.8 6.5 - 11.0 fL 04/18/2024 3:01 PM [facility] Blood BLOOD SPECIMEN / Unknown IV Start / Unknown 04/18/2024 2:48 PM CDT 04/18/2024 2:58 PM CDT Bon Varghese MD HEMATOLOGY Final Re sult Performing Organization Address [facility]/ZIP Co de Phone Number [facility] [address] [place] [address] * D-DIMER,QUANTITATIVE (04/18/2024 2:48 PM CDT) [facility] D-DIMER,QUANTI TATIVE 0.36 <=0.49 FEU mcg/mL 04/18/2024 4:18 PM CDT [facility] Blood BLOOD SPECIMEN / Unknown IV Start / Unknown 04/18/2024 2:48 PM CDT 04/18/2024 4:13 PM CDT Narrative [facility] - 04/18/2024 4:18 PM CDT The cut off value for exclusion of Deep Vein Thrombosis and / or Pulmonary Embolism is 0.50 FEU mcg/mL For patients greater than 50 years of age the upper limit is age dependent and was calculated with the formula: (PATIENT AGE x 0.01) FEU mcg/mL = Upper limit of normal range Bon Varghese MD HEMATOLOGY Final Re sult Performing Organization Address [facility] Co de Phone Number [facility] [address] [place] [address] * (ABNORMAL) BASIC METABOLIC PANEL (04/18/2024 2:48 PM CDT) [facility] SODIUM 139 136 - 145 mmol/L 04/18/2024 3:19 PM CDT [facility] POTASSIUM 3.9 3.5 - 5.1 mmol/L 04/18/2024 3:19 PM CDT [facility] CHLORIDE 104 98 - 107 mmol/L 04/18/2024 3:19 PM CDT [facility] CO2,TOTAL 24 22 - 29 mmol/L 04/18/2024 3:19 PM CDT [facility] ANION GAP 11 5 - 18 04/18/2024 3:19 PM CDT [facility] GLUCOSE 150(H) 70 - 99 mg/dL 04/18/2024 3:19 PM CDT [facility] CALCIUM 9.0 8.8 - 10.4 mg/dL 04/18/2024 3:19 PM CDT [facility] [facility] Comment: Reference ranges for this test were updated on 12/13/2023 to reflect our healthy population more accurately. Reference range changes are not retroactively applied to results, but previous results using the same methodology can be interpreted in the context of the new reference range. BUN 11 6 - 20 mg/dL 04/18/2024 3:19 PM CDT [facility] CREATININE 0.59 0.50 - 0.90 mg/dL 04/18/2024 3:19 PM T [facility] BUN/CREAT RATIO 19 10 - 20 3:19 PM T [facility] eGFR >90 >90 mL/min/1. 73m2 04/18/2024 3:19 PM T [facility] Comment:As of 2021, eG FR is calculated by the CKD-EPI creatinine equation without race adjustment. eGFR can be influenced by muscle mass, exercise, and diet. The reported eGFR is an estimation only and is only applicable if the renal function is stable. Blood BLOOD SPECIMEN / Unknown IV Start / Unknown 04/18/2024 2:48 PM CDT 04/18/2024 2:58 PM CDT Bon Varghese MD CHEMISTRY Final Re sult [facility] [address] [place] [address] * HPV HIGH RISK (10/21/2022 2:20 PM CDT) TYPE 16 Negative Negative 10/25/2022 1:53 PM CDT [facility] TYPE 18 Negative Negative 10/25/2022 1:53 PM CDT [facility] OTHER HIGH RISK TYPES Negative Negative 10/25/2022 1:53 PM CDT [facility] Other (Cervical) Non-Blood / Unknown 10/21/2022 2:20 PM CDT 10/22/2022 11:29 AM CDT Narrative [facility] - 10/25/2022 1:53 PM CDT HPV types 16, 18, 31, 33, 35, 39, 45, 51, 52, 56, 58, 59, 66 and 68 DNA were undetectable or below the pre-set threshold. Methodology: Aren Wanda 4800 HPV Test us Juliana Amezcua FOREIGN SERVICE OFFICER MICROBIOLOGY Final Result [facility] [address] [place] [address], * ANTI HIV 1/2 (01/08/2013 5:39 PM CASSEROLE PREPARER) ANTI HIV 1/2 Non-reacti ve [facility] Blood specimen (specimen) BLOOD SPECIMEN / Unknown 01/08/2013 5:39 PM CASSEROLE PREPARER 01/08/2013 5:11 PM CASSEROLE PREPARER us Kofi Sebastian MD SEND OUTS Final R esult [facility] INTERNAL ZIP [address] [place] [address] * ANTI HCV (08/18/2004 1:00 PM CDT) ANTI HCV Non-reactiv e [facility] 08/18/2004 1:00 PM CDT 08/18/2004 8:35 PM CDT [facility] - 08/25/2004 10:58 AM CDT Testing Performed By [place], [place] us La Sorto NP SEND OUTS Final Result [facility] [address] [place] [address] from Last 3 Months or Most Recently Relevant to Health Maintenance Insurance MEDICA CHOICE CARE [facility] MED[employer] CHOICE CARE [facility] MED[employer] CHOICE Advance Directives * Full Code (Latest Code Status on File) Date Activated Date Inactivated Comments 07/31/2022 8:59 AM 08/09/2022 3:49 PM Question Answer Comments Code Status Discussion: Reviewed Preferences * Full Code Date Activated Date Inactivated Comments 07/30/2022 9:05 PM 07/31/2022 8:59 AM Question Answer Comments Code Status Discussion: Unable to Assess Preferences, Provider to review later * Full Code Date Activated Date Inactivated Comments 12/30/2021 4:05 AM 01/07/2022 2:08 PM Question Answer Comments Code Status Discussion: Other * Full Code Date Activated Date Inactivated Comments 09/11/2016 1:00 AM 09/13/2016 3:20 PM Question Answer Comments Code Status Discussion: Not Discussed * Full Code Date Activated Date Inactivated Comments 07/29/2013 8:44 PM 07/30/2013 8:36 PM Care Teams Helmet Hat Sweatband Puncher Relationship Specialty Start Date End Date McCosh, Clara Poe DO [address] [place] [address] [place] [address] PCP - General Family Practice 03/27/24 [facility] [address] [place] [address] 01/07/22 [facility] [address] [place] [address] 09/01/22
--- OUTSIDE RECORDS SUMMARY | 2024-07-18 17:57 | XMS_ITS | Clinical Summary ---
Author Organization [facility] Address [address] [place] [address] Care Team Providers Care Non Emergency Services Ambulance Driver Name Role Phone Trinity Aguilar Unavailable Unavailable Rose Morrow TAXONOMY TEACHER Primary Care Provider [phone] Allergies No known active allergies Medications ibuprofen (ADVIL/MOTRIN) 200 MG tablet Take 2 tablets (400 mg) by mouth every 8 hours as needed 60 tablet 04/02/19 Active acetaminophen (TYLENOL) 500 MG tablet Take 1,000 mg by mouth every 6 hours as needed for mild pain Active gabapentin (NEURONTIN) 100 MG capsuleIndications :Acute nonintractable headache, unspecified headache type Take 1 capsule (100 mg) by mouth 3 times daily as needed for neuropathic pain 30 capsule 08/30/19 24 Active Active Problems Problem Noted Date Diagnosed Date Elevated blood pressure read ing without diagnosis of hypertension 08/29/2023 Dizziness 08/29/2023 Acute nonintractable headache, unspecified heada bharat type 08/29/2023 Prediabetes 03/12/2021 Assessment & Plan (03/12/2021 2:12 PM INSURANCE SALES ASSISTANT): She reports this is present. Morbid obesity 03/12/2021 Assessment & Plan (03/12/2021 2:17 PM INSURANCE SALES ASSISTANT): Body mass index is 58.58 kg/m . She reports previous clinic would not consider surgery due to depression. Sh has been involved in medical weight loss CAMRYN (obstructive sleep apnea) 03/12/2021 Assessment & Plan (03/12/2021 2:19 PM INSURANCE SALES ASSISTANT): Study last fall, currently untreated. I recommend she use her CPAP. Her mental status concerns c/w untreated sleep apnea Mild recurrent major depression 03/12/2021 Assessment & Plan (03/12/2021 2:20 PM INSURANCE SALES ASSISTANT): recently had pristiq added to hi dose bupropion. PHQ-9 score: PHQ 03/12/2021 PHQ-9 Total Score 21 Q9: Thoughts of better off /self-harm past 2 weeks Not at all Reduce bupropion, increase pristiq Encounter for immunization 03/12/2021 Assessment & Plan (03/12/2021 2:11 PM INSURANCE SALES ASSISTANT): offered Hyperlipidemia LDL goal <160 03/12/2021 Assessment & Plan (03/12/2021 2:11 PM INSURANCE SALES ASSISTANT): She reports this is present Midline low back pain without sciatica Assessment & Plan (03/12/2021 2:10 PM INSURANCE SALES ASSISTANT): Imaged May 2020, mild DJD. Cannot stand as above Pain in both knees 03/12/2021 Assessment & Plan (03/12/2021 2:09 PM INSURANCE SALES ASSISTANT): Must sit on a stool to do dishes. Cannot stand long enough to wash hands Vitamin D deficiency 03/12/2021 Assessment & Plan (03/12/2021 2:13 PM INSURANCE SALES ASSISTANT): On hi dose repletion Insomnia due to medical condition 03/12/2021 Assessment & Plan (03/12/2021 2:13 PM INSURANCE SALES ASSISTANT): Trazodone therapy OCD (obsessive compulsive disorder) 01/14/2021 Hyperinsulinemia 11/19/2020 Overactive bladder 08/19/2020 Mixed stress and urge urinary incontinence 09/12 Overview (04/21/2021): Added automatically from request for surgery [id number] Added automatically from request for surgery [id number] Urinary frequency 09/13/2019 Overview (04/21/2021): Added automatically from request for surgery [id number] Added automatically from request for surgery [id number] Binge eating disorder 07/28/2017 Right lower quadrant abdominal pain 09/11/2016 Persistent depressive disorder 04/30/2016 Edema 01/04/2011 Major depression, recurrent 02/19/2010 Resolved Problems Problem Noted Date Diagnosed Date Resolved Date Indication for care in labor or delivery 04/09/2013 03/12/2021 Immunizations Immunization Administration Dates Next Due COVID-19 Monovalent Booster 18+ (Moderna) 03/12/2021 Flu, Unspecified 05/02/2013 Hepatitis B, Adult (Energix-B/Recombivax HB) 01/12/2005,08/14/2004,07/10/2004 Influenza (IIV3) PF 11/03/2011,12/15/2006 Influenza (prior to 2023) 03/01/2012 Influenza Vaccine >6 months,quad, PF 04/2021,10/27/2019,03/21/2019,2017,11/28/2013 MMR (MMRII) 08/14/2004,07/10/2004 Mantoux Tuberculin Skin Test 08/18/2004 Poliovirus, inactivated (IPV) 10/03/2012 TDAP (Adacel,Boostrix) 07/05/2013,06/30/2013, Td (Adult), Adsorbed 02/16/2005,08/14/2004,07/10 Typhoid IM 10/03/2012 Varicella (Varivax) 08/14/2004,07/10/2004 Yellow Fever 10/03/2012 Social History Tobacco Use Types Packs/Day Years Used Date Smoking Tobacco: Never Smokeless Tobacco: Never Alcohol Use Standard Drinks/Week Comments No 0 (1 standard drink = 0.6 oz pur e alcohol) PHQ-2 Answer Date Recorded PHQ-2 Score 6 03/12/2021 Adolescent Education Answer Date Record ed Getting School Help Needed Not on file 10/29 Comments No Sex and Gender Information Value Date Recorded Sex Assigned at Female 04/28/2021 11:49 AM CDT Legal Sex Female 8:05 PM INSURANCE SALES ASSISTANT Gender Identity Female 04/28/2021 11:49 AM CDT Sexual Orientation Not on file Last Filed Vital Signs Vital Sign Reading Time Taken Comments Blood Pressure 117/72 08/30/2023 3:04 PM CDT Pulse 72 08/30/2023 3:04 PM CDT Temperature 36.3 C (97.3 F) 08/30/2023 3:04 PM CDT Respiratory Rate 18 08/30/2023 3:04 PM CDT Oxygen Saturation 100% 08/30/2023 3:04 PM CDT Inhaled Oxygen Concentration - - Weight 149.7 kg (330 lb) 08/29/2023 6:17 PM CDT Height 170.2 cm (5' 7) 08/29/2023 6:17 PM CDT Body Mass Index 51.69 08/29/2023 6:17 PM CDT Plan of Treatment Health Maintenance Due Date Last Done Comments ADVANCE CARE PLANNING 1982 DEPRESSION ACTION PLAN 1982 MAMMO SCREENING 1982 YEARLY PREVENTIVE VISIT 03/14/2020 03/14/2019, 05/22 PHQ-9 09/09/2021 03/12/2021 ANNUAL REVIEW OF HM ORDERS 03/12/2022 03/12/2021 LIPID 03/12/2022 03/12/2021 DTAP/TDAP/TD VACCINE (7 - Td or Tdap) 07/06/2023 07/05/2013, 06/30/2013, 11/03/2011, Additional history exists COVID-19 VACCINE ( season) 2023 03/12/2021, 06/12/2020, 05/14/2020 INFLUENZA VACCINE (Season Ended) 2024 11/11/2022, 12/31/2021, 03/12/2021, Additional history exists DIABETES SCREENING 08/28/2026 08/29/2023, 0 03/12/2021, 03/12/2021 PAP 10/22/2027 10/21/2022, 05/21/2018 ZOSTER VACCINE (1 of 2) 2032 HEPATITIS C SCREENING Completed 08/18/2004, 005 HEPATITIS B VACCINE Completed 01/12/2005, 08/14/2004, 07/10/2004 HIV SCREENING Completed 03/14/2019, 03/2012, 08/18/2012 HPV VACCINE Aged Out No longer eligi ble based on patient's age to complete this topic MENINGITIS VACCINE Aged Out No longer eligible based on patient's age to complete this topic PNEUMOCOCCAL VACCINE: PEDIATRICS (0 to 5 YEARS) AND AT-RISK PATIENTS (6 to 49 YEARS) Aged Out No longer eligible based on patient's age to complete this topic Procedures Procedure Name Priority Date/Time Associated Diagnosis Comments BASIC METABOLIC PANEL STAT 08/29/2023 9:16 PM CDT LIPID REFLEX TO DIRECT LDL PANEL Routine 03/12/2021 10:11 AM INSURANCE SALES ASSISTANT Hyperlipidemia LDL goal <160 from Last 3 Months or Most Recently Relevant to Health Maintenance Results * Basic metabolic panel (08/29/2023 9:16 PM CDT) Sodium 138 135 - 145 mmol/L 08/29/2023 9:53 PM CDT [facility] Potassium 4.0 3.4 - 5.3 mmol/L 08/29/2023 9:53 PM CDT [facility] Chloride 101 98 - 107 mmol/L 08/29/2023 9:53 PM CDT [facility] Carbon Dioxide (CO2) 22 22 - 29 mmol/L 08/29/2023 9:53 PM CDT [facility] Anion Gap 15 7 - 15 mmol/L 08/29/2023 9:53 PM CDT [facility] Urea Nitrogen 12.8 6.0 - 20.0 mg/dL 08/29/2023 9:53 PM CDT [facility] Creatinine 0.62 0.51 - 0.95 mg/dL 08/29/2023 9:53 PM CDT [facility] GFR Estimate >90 >60 mL/min/1.7 3m2 08/29/2023 9:53 PM CDT [facility] Comment:eGFR calculated usin 2020 CKD-EPI equation. Calcium 8.8 8.8 - 10.4 mg/dL 08/29/2023 9:53 PM CDT [facility] Comment:Reference intervals for this test were updated on 08/23/2023 to reflect our healthy population more accurately. There may be differences in the flagging of prior results with similar values performed with this method. Those prior results can be interpreted in the context of the updated reference intervals. Glucose 84 70 - 99 mg/dL 08/29/2023 9:53 PM CDT [facility] Blood BLOOD SPECIMEN / Unknown Venipuncture / Unknown 08/29/2023 9:16 PM CDT 08/29/2023 9:32 PM CDT us Jackeline Rendon MD LAB - BLOOD ORDERABLES F inal Result [facility] [address] [facility] Lab (1st floor, no room number) [place] [address] * (ABNORMAL) Lipid panel reflex to direct LDL Non-fasting (03/12/2021 10:11 AM INSURANCE SALES ASSISTANT) Pathologist [facility] Cholesterol 202(H) <200 mg/dL 03/16/2021 1:27 PM INSURANCE SALES ASSISTANT [facility] Triglycerides 119 <150 mg/dL 03/16/2021 1:27 PM INSURANCE SALES ASSISTANT [facility] Direct Measure HDL 52 >=50 mg/dL 03/16/2021 1:27 PM INSURANCE SALES ASSISTANT [facility] LDL Cholesterol Calculated 126(H) <=100 mg/dL 03/16/2021 1:27 PM INSURANCE SALES ASSISTANT [facility] Non HDL Cholesterol 150(H) <130 mg/dL 03/16/2021 1:27 PM INSURANCE SALES ASSISTANT [facility] Patient Fasting > 8hrs? Yes 03/16/2021 1:27 PM INSURANCE SALES ASSISTANT [facility] Blood BLOOD SPECIMEN / Unknown Venipuncture / Unknown 03/12/2021 10:11 AM INSURANCE SALES ASSISTANT 03/12/2021 10:11 AM INSURANCE SALES ASSISTANT Narrative [facility] - 03/16/2021 1:27 PM INSURANCE SALES ASSISTANT Cholesterol Desirable: <200 mg/dL Triglycerides Normal: Less than 150 mg/dL Borderline High: 150-199 mg/dL High: 200-499 mg/dL Very High: Greater than or equal to 500 mg/dL Direct Measure HDL Female: Greater than or equal to 50 mg/dL Male: Greater than or equal to 40 mg/dL LDL Cholesterol Desirable: <100mg/dL Above Desirable: 100-129 mg/dL Borderline High: 130-159 mg/dL High: 160-189 mg/dL Very High: >= 190 mg/dL Non HDL Cholesterol Desirable: 130 mg/dL Above Desirable: 130-159 mg/dL Borderline High: 160-189 mg/dL High: 190-219 mg/dL Very High: Greater than or equal to 220 mg/dL us Zacarias Coleman MD LAB - BLOOD ORDERABLES Final Re sult [facility] [address] Lab (no room number, 1st floor of clinic) [place] [address], [facility] [phone] from Last 3 Months or Most Recently Relevant to Health Maintenance Insurance [facility] Advance Directives For more information, please contact: [phone] * Full Code (Latest Code Status on File) Date Activated Date Inactivated Comments 08/30/2023 1:21 AM 08/30/2023 7:19 PM All basic an d advanced life-sustaining interventions are performed as appropriate Question Answer Comments Code status determined by: Discussion with patie nt/ legal decision maker Care Teams Non Emergency Services Ambulance Driver Relationship Specialty [place] [address] [place] [address] PCP - General 04/13/21 Trinity Aguilar Personal Advocate & Liaison (PAL) Family Medicine 03/13/21
--- OUTSIDE RECORDS SUMMARY | 2024-07-18 17:57 | XMS_ITS | Encounter Summary ---
Author Organization [facility] Address [address] [place] [address] Care Team Providers Care Vest Finisher Name Role Phone No Ref-Primary, Physician Primary Care Provider Trinity Aguilar Unavailable Unavailable Zacarias Coleman MD Unavailable [phone] Rose Morrow E [employer]ER[employer] MERCHANT Primary Care Provider [phone] Zaid Weston PA-C Unavailable [phone] Humera Rodriguez APRN GENERAL SERVICE TECHNICIAN Unavailable [phone] Encounter Details Date Type Department Care Team (Late st Contact Info) Description 03/23/2021 Community Resource Summary INTERFACED REPORT Social History Tobacco Use Types Packs/Day Years Used Date Smoking Tobacco: Never Smokeless Tobacco: Never Alcohol Use Standard Drinks/Week Comments No 0 (1 standard drink = 0.6 oz pur e alcohol) PHQ-2 Answer Date Recorded PHQ-2 Score 6 03/12/2021 Comments No Sex and Gender Information Value Date Recorded Sex Assigned at Female 04/28/2021 11:49 AM CDT Legal Sex Female 8:05 PM LAW SECRETARY Gender Identity Female 04/28/2021 11:49 AM CDT Sexual Orientation Not on file COVID-19 Exposure Response Date Recorded In the last month, have you been in contact with someone who was confirmed or suspected to have Coronavirus / COVID-19? No / Unsure 03/16/2021 4:30 PM LAW SECRETARY documented as of this encounter Plan of Treatment Not on file documented as of this encounter Visit Diagnoses Not on filedocumented in this encounter Additional Health Concerns Assessment Noted Time PHQ-9 Depression Total Score: 21 022 11:26 AM LAW SECRETARY documented as of this encounter Care Teams Vest Finisher Relationship Specialty Start Date End Date No Ref-Primary, Physician PCP - General 03/09/21 04/12/21 Rose Morrow, E [employer] [address] [place] [address] PCP - General 04/13/21 Trinity Aguilar Personal Advocate & Liaison (PAL) Family Medicine 03/13/21 [place] [address] [place] [address] Assigned PCP 02/12/21 04/11/21 Zaid Weston PA-C [address] [facility] [place] [address] Assigned Surgical Provider 05/03/21 Humera Rodriguez APRN GENERAL SERVICE TECHNICIAN [address] [facility] [place] [address] Assigned PCP 04/12/21 04/28/24 documented as of this encounter
[2024-07-18 17:58] VITALS: BP 154/91; PULSE 120; RESP 18; TEMP 36.4; O2SAT 96; BMI 64.5
--- NOTE | 2024-07-18 18:09 | ED.ABDPAIN ---
HPI - Abdominal Pain General Date Seen: 07/18/24 Chief Complaint: Abdominal Pain Stated Complaint: L side pain and stomach pain Time Seen by Provider: 07/18/24 17:56 History of Present Illness HPI narrative: 43-year-old female presenting to the ER today for evaluation multiple complaints. Past medical history includes elevated BMI, sleep apnea, prediabetes, hypertension, high cholesterol, depression, anxiety. She also has had irregular periods for the past several months and apparently has had workup with the loss prevention leader told her she is not ovulating and recommended an IUD (patient chose not to do the IUD). 1. Abdominal pain. She has been having suprapubic crampy abdominal pain a few times a week for many months. Patient says it has been going on, ?for a while. ?. Is not hurting this evening but she is concerned about it because of how frequently it hurts. No clear pattern. Her periods are irregular. She apparently had gone many months without a.. She is very confident she is not . No fevers. Bowel movements are generally normal but she did have 2 episodes of loose junky watery diarrhea (nonbloody) this morning. Urination has been normal. No flank pain. No hematuria. She does note that her urine is somewhat dark, almost dark yellow orange colored. She is not sure why it is that color. 2. She notes that for the past week or so she has developed a little bit of edema effecting her lower legs from the knees down to the ankles and that she has had some burning stinging discomfort in her low both of her legs typically that bothers her more at night. No clear trigger. No new change in position or activity. She has no history of hepatic disease, liver disease, or CHF. No shortness of breath. No chest pain. No recent immobilization. No travel. She says her legs feel stinging, and numb and hot on the inside. She is not on any redness or warmth of the skin on her legs. 3. She also notes that she has developed a painful lump in the skin of her left posterior ribcage inferior to the tip of the scapula. She calls it a, ?cyst. ? She 1st noticed a couple of days ago. It is deep inside. There is no bruise. No known trauma. She has not noted is he redness the skin. She has not had any fever chills. It feels firm to her. She goes and she is worried she might have cancer growing there. It does not feel is fluctuant as her previous axillary abscess. Related Data Home Medications ?Medication ?Instructions ?Recorded ?Confirmed aripiprazole 5 mg tablet (Abilify) 5 mg PO QAM 07/18/24 07/18/24 Previous Rx's ?Medication ?Instructions ?Recorded cephalexin 500 mg capsule 500 mg PO QID #28 caps 07/18/24 sulfamethoxazole 800 1 tab PO Q12H #14 tabs 07/18/24 mg-trimethoprim 160 mg tablet (Bactrim DS) Allergies Allergy/AdvReac Type Severity Reaction Status Date / Time No Known Drug Allergies Allergy Verified 07/18/24 19:29 [facility] Social History Smoking Status: Never smoker Do you use any of these nicotine containing products: None Second hand tobacco smoke exposure: No How often do you have a drink containing alcohol: never How often do you have six or more drinks on one occasion: Never AUDIT-C Alcohol total score: 0 Non-prescribed substance use: denies use service: No Exam Narrative: Exam Narrative: Exam performed with female gate guard Constitutional: Appears well-developed. . Alert. Conversant intelligent . She is anxious, at times even tearful when she is worrying about the possible causes of her symptoms. Non toxic. HENT: Head: Atraumatic. Nose: Nose normal. Mouth/Throat: Oral mucosa is clear and moist. no trismus. Pharynx normal. Tonsils symmetric. No tonsillar enlargement, erythema, or exudate. Eyes: Conjunctivae normal. EOM normal. Pupils equal, round, and reactive to light. No scleral icterus. Neck: Normal range of motion. Neck supple. No tracheal deviation present. No JVD Cardiovascular: Normal rate, regular rhythm. No gallop. No friction rub. No murmur heard. Symmetric radial artery pulses Pulmonary/Chest: Effort normal. No stridor. No respiratory distress. No wheezes. No rales. No rhonchi . She does have a firm subcutaneous nodule in the skin of her left posterior ribcage inferior to the tip of the scapula. There is no overlying skin warmth or redness. No bruising. It is a firm lump. It is perhaps 2-3 cm in size but difficult to palpate because of overlying adipose tissue. It is tender. No fluctuance. No crepitus. Abdominal: Soft. Bowel sounds normal. No distension. No mass. Left mid abdominal tenderness. No rebound. No guarding. No CVA tenderness Musculoskeletal: RUE: Normal range of motion. No tenderness. No deformity LUE: Normal range of motion. No tenderness. No deformity RLE: Normal range of motion. Trace edema. No tenderness. No deformity LLE: Normal range of motion. Trace edema. No tenderness. No deformity Lymph: No cervical adenopathy. Neurological: Alert and oriented to person, place, and time. Normal strength. CN II-VII intact. No sensory deficit. GCS eye subscore is 4. GCS verbal subscore is 5. GCS motor subscore is 6. Normal coordination Skin: Skin is warm and dry. No rash noted. No pallor. Normal capillary refill. I do not see any erythema of the skin on the patient's posterior ribcage or on her lower extremities. No rashes. No petechiae. No vesicles or shingles. Psychiatric: Normal mood. Anxious. Polite Const: Vital Signs, click to edit/add: Vital Signs - 24 hr 07/18/24 17:58 07/18/24 20:28 07/18/24 23:00 Temperature 97.6 F 98.3 F Pulse Rate [Right Pulse Oximeter] 120 H 86 Respiratory Rate 18 18 Blood Pressure [Ri ght Upper Arm] 154/91 H 140/71 H 135/82 Pulse Oximetry 96 97 Oxygen Delivery Me thod Room Air Room Air 07/18/24 23:29 Temperature Pulse Rate [Right Pulse Oximeter] 118 H Respiratory Rate 18 Blood Pressure [Ri ght Upper Arm] 141/88 H Pulse Oximetry 96 Oxygen Delivery Me thod Room Air Course Course ED Course: Recheck-patient's labs came back with a white count of 12, lactate elevated at 3. My review the patient's CT scan shows an abnormality in the soft tissue of the patient's left posterior thoracic wall possibly a phlegmon or small abscess. Will start on IV antibiotics. Also additional IV fluid plan for repeat check lactic. Unclear if the patient is actually septic or if she is just dehydrated. Reevaluation(s) Reevaluation #1: Recheck-patient is endorses feeling better but still has some pain in that lump in her left posterior thorax. Heart rate still elevated. Not febrile. Still mildly anxious. However she is eager for discharge home. Discussed our workup so far with her in detail. Questions answered to the best my ability. Vital Signs Vital signs: Initial Vital Signs Temperature 97.6 F 07/18/24 17:58 Temperature Source Temporal Artery Scan 07/18/24 17:58 Pulse Rate 120 H 07/18/24 17:58 Pulse Rhythm Regular 07/18/24 17:58 Pulse Strength 3+ Normal 07/18/24 17:58 Respiratory Rate 18 07/18/24 17:58 Blood Pressure 154/91 H 07/18/24 17:58 Blood Pressure Mean 112 H 07/18/24 17:58 Blood Pressure Position Sitting 07/18/24 17:58 Pulse Oximetry 96 07/18/24 17:58 Oxygen Delivery Method Room Air 07/18/24 17:58 Vital Signs Temperature 97.6 F 07/18/24 17:58 Pulse Rate 120 H 07/18/24 17:58 Respiratory Rate 18 07/18/24 17:58 Blood Pressure 154/91 H 07/18/24 17:58 Pulse Oximetry 96 07/18/24 17:58 Oxygen Delivery Method Room Air 07/18/24 17:58 Temperature 98.3 F 07/18/24 20:28 Pulse Rate 118 H 07/18/24 23:29 Respiratory Rate 18 07/18/24 23:29 Blood Pressure 141/88 H 07/18/24 23:29 Pulse Oximetry 96 07/18/24 23:29 Oxygen Delivery Method Room Air 07/18/24 23:29 Medications Administered Medications: Discontinued Medications Generic Name Dose Route Start Last Admin Trade Name Freq PRN Reason Stop Dose Admin Sodium Chloride 1,000 mls @ 1,000 mls/hr 07/18/24 21:00 07/18/24 23:07 0.9 % Sodium Chloride 1000 Ml IV 07/18/24 21:59 Infused .Q1H CECI Infusion Sodium Chloride 1,000 mls @ 1,000 mls/hr 07/18/24 21:00 07/18/24 23:07 0.9 % Sodium Chloride 1000 Ml IV 07/18/24 21:59 Infused .Q1H CECI Infusion Vancomycin/PEG/NADA/Lysine/Water 2 gm in 400 mls @ 200 mls/hr 07/18/24 21:05 07/18/24 23:39 Vancomycin 2 Gm/400 Ml IVPB 07/18/24 23:04 Infused ONCE ONE Infusion Protocol MDM - Abdominal Pain MDM Narrative Medical decision making narrative: This is a pleasant 43-year-old female with a complex presentation to the ER. She has multiple complaints. 1. For the past 3 days she has had a painful lump in her posterior left thoracic wall below her left scapula. No trauma but she has had a deep lump there that is been painful when she lays down. Differential here would include occult trauma, cutaneous abscess as well as other conditions that would cause a lump such as a lipoma. On my exam there is a palpable lump deep in the soft tissue with no overlying bruising or erythema or any clear explanation for what it is. It is not fluctuant. We did a CT scan of the patient's chest. This is read by Radiology does show probable contusion. Patient does not recall any trauma. If this is a contusion it should resolve on its own over the next couple of days. However with elevated white count, also consider possible infection. At this point with no clear fluid density material in the lesion, I do not think you would be warranted to try aspiration or incision and drainage. Additionally I and D would likely have to be done by surgery since the most superficial part of the lesion is about 2.5 cm below the skin surface. At this point will put the patient on some antibiotics (cephalexin and Bactrim to cover for MSSA and MRSA). I discussed with the patient that at this point were not sure if the lump is a bruise or a could be an evolving infection and she needs to monitor carefully. Return to the ER if any redness, worsening swelling, worsening pain, or any concerns. 2. She has also had intermittent lower abdominal pain in left lower quadrant abdominal pain off and on for several months The differential diagnosis of abdominal pain includes: Diverticulitis, kidney stone, UTI, atypical presentation of appendicitis, pathology such as cyst, among others including, Bowel Obstruction, Ulcer, Ischemia, Cholecystitis, Diverticulitis, Pancreatitis, UTI, kidney stone, Enteritis/Colitis, amongst many other etiologies. Laboratory testing does not reveal a cause for the patient's pain. LFTs are mildly abnormal but she is not having any pain in the right upper quadrant. Pain is all left abdomen/left lower quadrant. UA is normal. test negative. CT Imaging is noted to be normal. The exact etiology of the abdominal pain is not clear at this time. No life threatening cause or need for emergent surgery or hospital admission is detected today. Given that the patient has been having pain off and on for several months at this point I do not think she needs to be admitted for immediate surgical intervention. However I discussed the vital importance for her to follow up with her doctors for further evaluation. 3. She is also concerned because for the past week or so she has developed new peripheral edema symmetrically affecting her lower extremities along with some burning pain in her lower extremities. On exam she does not have any evidence for shingles, cellulitis. With symmetric edema I do not think this represents DVT. Consider causes for peripheral edema. Laboratory workup shows no evidence for renal failure panic failure. Lungs are clear on clinical exam and imaging so no evidence 1st congestive heart failure. BNP is normal. Patient does endorse that she has been doing a lot of sitting with her feet down lately and wonders if she has been eating too much salt to food. At this point she will observe clinically. Hold off on any diuretic until recheck. Lab Data Labs: Lab Results 07/18/24 07/18/24 07/18/24 Range/Units 18:55 19:00 22:45 WBC 12.16 H (4.50-11.00) K/uL RBC 4.34 (4.00-5.20) m/uL Hgb 12.8 (12.0-16.0) gm/dL Hct 38.4 (33.0-51.0) % MCV 89 (80-100) fL MCH 30 (26-34) pg MCHC 33 (32-36) gm/dL RDW Coeff of Clarissa 14.0 (11.5-15.5) % Plt Count 368 (140-440) K/uL Neut % (Auto) 57.2 (42.0-72.0) % Lymph % (Auto) 34.2 (20-44) % [place] % (Auto) 6.9 (0.0-11.0) % Eos % (Auto) 1.2 (0.0-7.0) % Baso % (Auto) 0.2 (0.0-3.0) % Neut # (Auto) 7.00 (1.7-7.0) K/uL Lymph # (Auto) 4.20 H (0.90-2.90) K/uL [place] # (Auto) 0.80 (0.00-0.90) K/UL Eos # (Auto) 0.10 (0.00-0.50) K/uL Baso # (Auto) 0.00 (0.00-0.30) K/uL Abs Immat Gran (auto) 0.00 (0.00-0.30) K/uL Imm/Tot Granulo (auto) 0.3 % Sodium 139 (135-149) mmol/L Potassium 4.1 (3.6-5.1) mmol/L Chloride 103 (96-114) mmol/L Carbon Dioxide 25 (20-32) mmol/L Anion Gap 11 (7-15) mEq/L BUN 16 (5-24) mg/dL Creatinine 0.7 (0.5-1.5) mg/dL Estimated Creat Clear 102.85 Estimated GFR 111 ml/min Glucose 134 H (60-115) mg/dL Lactate 3.1 H 1.5 (0.5-1.9) mmol/L Calcium 9.4 (8.4-10.6) mg/dL Total Bilirubin 0.4 (0.1-1.5) mg/dL AST 39 H (12-35) U/L ALT 41 H (4-35) U/L Alkaline Phosphatase 55 (40-150) U/L NT-Pro-B Natriuret Pep < 20 (See Note) pg/mL Total Protein 7.8 (6.0-8.3) g/dL Albumin 4.3 (3.3-5.0) g/dL Lipase 47 (23-300) U/L Urine Color Yellow (Yellow) Urine Appearance Clear (Clear) Urine pH 5.5 (5.0-8.5) Ur Specific [place] 1.025 (1.000-1.030) Urine Protein Negative (Negative) Urine Glucose (UA) Negative (Negative) Urine Ketones Negative (Negative) Urine Blood Negative (Negative) Urine Nitrite Negative (Negative) Urine Bilirubin Negative (Negative) Urine Urobilinogen 0.2 (0.2-1.0) Ur Leukocyte Esterase Negative (Negative) Urine RBC 0-2 (0-2) Urine WBC 0-2 (0-5) Ur Squamous Epith Cells Moderate A (None-Few) Urine Bacteria Few A (None) Urine HCG, Qual Negative (Negative) Imaging Data CT Chest/Ab/Pelvis: Attestation: I have reviewed the pertinent imaging results. My impression: There is some fat density in the left posterior thoracic wall with a small round lesion. Not clear that this is a fluid density like a abscess. Could be a phlegmon? Contusion? Awaiting formal radiology. Radiologist's impression: IMPRESSION: 1. Subcutaneous contusion in the posterior left chest wall. 2. Hepatomegaly. 3. Age-indeterminate mild compression deformity at the superior endplate of T11. Recommend correlation with point tenderness in this region, and with neurologic exam Discharge Plan Discharge Clinical Impression: Chest wall contusion, Abdominal pain, Edema, peripheral Patient Disposition: Home, Self-Care Condition: Stable Instructions: Contusion in Adults (ED), Abdominal Pain (ED) Additional Instructions: As we discussed, so far your workup looks reassuring. The radiologist read her CT scan. He feels that the lump you have been noticing in the back of your left rib cage is probably a contusion (a deep bruise). However, since you do have a elevated white count, I am concerned this could be a possible infection. That is why we gave you a dose of IV antibiotics here in the ER tonight. Please continue on the oral antibiotics at home starting tomorrow morning. Monitor the area carefully and if you have worsening pain or swelling, or if the skin over the swollen area changes color and becomes red, please see your doctor or come back to the ER right away to be rechecked. If you have any other concerns, please come back to the ER right away. For your abdominal pain, please recheck with your doctor or loss prevention leader within the next 1-2 days. Prescriptions: New cephalexin 500 mg capsule 500 mg PO QID Qty: 28 0RF sulfamethoxazole-trimethoprim [Bactrim DS] 800-160 mg tablet 1 tab PO Q12H Qty: 14 0RF No Action aripiprazole [Abilify] 5 mg tablet 5 mg PO QAM Follow Up/Referrals: Provider,Not a Local [Primary Care Provider, Family Practice] Stand Alone Forms: [facility] Info Instructions
--- NOTE | 2024-07-18 18:53 | CRLHL7_ITS ---
For Patients: As a result of the Century Cures Act, medical imaging exams and procedure reports are released immediately into your electronic medical record. You may view this report before your referring provider. If you have questions, please contact your health care provider. INDICATION: Left posterior ribcage tenderness and swelling. Left flank pain. Left lower quadrant abdominal pain, intermittent. TECHNIQUE: CT chest, abdomen, and pelvis acquired with 150 mL Isovue 370 IV contrast. COMPARISON: CT abdomen/pelvis dated 08/06/2016. FINDINGS: Limited study secondary to patient body habitus. CHEST: Lungs and pleura: Suboptimal evaluation of the lung parenchyma secondary to motion artifact. No focal consolidation. Heart and vessels: No significant cardiomegaly, no pericardial effusion. Thyroid and lower neck: No suspicious thyroid nodule. Mediastinum/moose: No lymphadenopathy. Chest wall: No axillary lymphadenopathy. Subcutaneous contusion noted in the posterior left chest wall. ABDOMEN/PELVIS: Liver: Hepatomegaly. Gallbladder and bile ducts: Gallbladder is decompressed, suboptimally evaluated. Pancreas: Unremarkable. Spleen: Unremarkable. Adrenal glands: Unremarkable. Kidneys: Kidneys enhance symmetrically, without hydronephrosis. Retroperitoneum: No lymphadenopathy. Bowel and mesentery: Bowel is not obstructed. No significant ascites, no pneumoperitoneum. Postsurgical changes of prior appendectomy. Bladder: Unremarkable for degree of distention. Reproductive organs: Unremarkable. Pelvic lymph nodes: No lymphadenopathy. Vessels: Unremarkable. Abdominal wall: No acute abdominal wall abnormality, of the visualized abdominal wall. Bones: Multilevel degenerative changes of the spine. Age indeterminate mild compression deformity at the superior endplate of T11. IMPRESSION: 1. Subcutaneous contusion in the posterior left chest wall. 2. Hepatomegaly. 3. Age-indeterminate mild compression deformity at the superior endplate of T11. Recommend correlation with point tenderness in this region, and with neurologic exam. Please note that all CT scans at this facility use dose modulation, iterative reconstruction, and/or weight-based dosing when appropriate to reduce radiation dose to as low as reasonably achievable. Dictated by Jovon Oropeza MD @ 07/18/2024 8:55:30 PM (Electronically Signed)
[2024-07-18 19:07] LABS: Ur HCG Qualitative* Negative (Negative)
[2024-07-18 19:14] LABS: Lactate* 3.1 mmol/L (0.5-1.9)
[2024-07-18 19:21] LABS: Basophils Percent Auto 0.2 % (0.0-3.0); Eosinophils Percent Auto 1.2 % (0.0-7.0); Hematocrit 38.4 % (33.0-51.0); Hemoglobin* 12.8 gm/dL (12.0-16.0); Immature Granulocytes Pct Auto 0.3 %; Lymphocytes Percent Auto 34.2 % (20-44); Mean Corpuscular HGB Conc 33 gm/dL (32-36); Mean Corpuscular Hemoglobin 30 pg (26-34); Mean Corpuscular Volume 89 fL (80-100); Monocytes Percent Auto 6.9 % (0.0-11.0); Neutrophils Percent Auto 57.2 % (42.0-72.0); Platelet Count* 368 K/uL (140-440); Red Blood Count 4.34 m/uL (4.00-5.20); White Blood Count* 12.16 K/uL (4.50-11.00)
[2024-07-18 19:30] LABS: Appearance Urine Clear (Clear); Bilirubin Urine Negative (Negative); Blood Urine Negative (Negative); Color Urine Yellow (Yellow); Glucose Urine Negative (Negative); Ketones Urine Negative (Negative); Leukocyte Esterase Urine Negative (Negative); Nitrite Urine Negative (Negative); Protein Urine Negative (Negative); Specific Gravity Urine 1.025 (1.000-1.030); Urobilinogen Urine 0.2 (0.2-1.0); pH Urine 5.5 (5.0-8.5)
[2024-07-18 19:35] LABS: Albumin* 4.3 g/dL (3.3-5.0); Chloride* 103 mmol/L (96-114); Potassium* 4.1 mmol/L (3.6-5.1); Sodium* 139 mmol/L (135-149)
[2024-07-18 19:37] LABS: Blood Urea Nitrogen* 16 mg/dL (5-24); Creatinine* 0.7 mg/dL (0.5-1.5); Est. Creatinine Clearance* 102.85; Estimated Glomerular Filt Rate 111 ml/min
[2024-07-18 19:38] LABS: Alanine Aminotransferase* 41 U/L (4-35); Alkaline Phosphatase* 55 U/L (40-150); Anion Gap 11 mEq/L (7-15); Aspartate Amino Transferase* 39 U/L (12-35); Bilirubin Total* 0.4 mg/dL (0.1-1.5); Calcium* 9.4 mg/dL (8.4-10.6); Carbon Dioxide* 25 mmol/L (20-32); Glucose* 134 mg/dL (60-115); Lipase* 47 U/L (23-300); Total Protein* 7.8 g/dL (6.0-8.3)
[2024-07-18 19:40] LABS: Slide Review Reflex No
[2024-07-18 19:50] LABS: Bacteria Urine Few; RBC Urine 0-2 (0-2); Squamous Epithelial Cell Urine Moderate (None-Few); WBC Urine 0-2 (0-5)
[2024-07-18 19:51] LABS: NT Pro B Type NatriureticPept* < 20 pg/mL (See Note)
[2024-07-18 20:28] VITALS: BP 140/71; PULSE 86; RESP 18; TEMP 36.8; O2SAT 97
[2024-07-18] MEDS: 0.9 % SODIUM CHLORIDE 1000 ml 1,000 ML IV ×2 (20:49)
[2024-07-18] MEDS: VANCOMYCIN 2 GM/400 ML 2 GM/400 ML PIGGYBACK IVPB (21:41)
[2024-07-18 22:55] LABS: Lactate* 1.5 mmol/L (0.5-1.9)
[2024-07-18 23:00] VITALS: BP 135/82
[2024-07-18 23:29] VITALS: BP 141/88; PULSE 118; RESP 18; O2SAT 96
== END 2024-07-18 23:53 | disposition home or self-care (01) ==
PROVIDERS: Emergency Provider Emergency Medicine
DX: S20.212A Contusion of left front wall of thorax, initial encounter (principal); R10.32 Left lower quadrant pain; R60.9 Edema, unspecified
CPT/HCPCS: 36415; 71260; 74177; 80053; 81001; 81025; 83605; 83690; 83880; 85025; 87086; 96365; 96366; 99283; 99284; 99285; J3372; J7030; Q9967